=== PATIENT | female | born 1940 | race Caucasian/White ===

== ENCOUNTER 2018-11-08 11:45 | Observation (INO) | payer OTHER ==
--- OUTSIDE RECORDS SUMMARY | 2018-11-08 12:30 | XMS REPORT ---
:1940 [facility] Address [address] [place] [address] Dr. Lopez. [address] [place] [id number] Care Team Providers Name Role Phone Unavailable Unavailable Unavailable Problems This patient has no known problems. Allergies, Adverse Reactions, Alerts This patient has no known allergies or adverse reactions. Medications This patient has no known medications.
[2018-11-08] MEDS ORDERED: ACETAMINOPHEN 325 MG TABLET PO PRN (12:42)
[2018-11-08] MEDS ORDERED: DIPHENHYDRAMINE 25 MG TAB/CAP PO PRN (12:43)
[2018-11-08] MEDS ORDERED: LOPERAMIDE HCL 2 MG CAPSULE PO PRN (12:43)
[2018-11-08] MEDS ORDERED: ONDANSETRON 4 MG (ODT) TAB PO PRN (12:43)
[2018-11-08] MEDS ORDERED: POLYETHYL GLY 3350 17 GM/DOSE PO PRN (12:44)
[2018-11-08] MEDS ORDERED: NACHLORIDE 0.45% 1,000 ML IV SCH (13:00)
--- NOTE | 2018-11-08 14:21 | RAD REPORT ---
EXAM DESCRIPTION: Jimmie Espana And John Paul (2 Views)11/08/2018 2:13 pm CLINICAL HISTORY: Abdominal pain COMPARISON: 2017 FINDINGS: Mild chronic appearing lung opacities The lungs appear clear of acute infiltrate. The heart is normal size IMPRESSION: No acute abnormalities displayed
--- NOTE | 2018-11-08 14:57 | RAD REPORT ---
EXAM DESCRIPTION: US - Abdomen Exam Complete - 11/08/2018 2:36 pm CLINICAL HISTORY: Abdominal pain COMPARISON: February 2018 cat scan FINDINGS: The liver has a normal echotexture. Cholecystectomy. The biliary tree is normal caliber. The pancreas is atrophic The right kidney measures 9 centimeters with a normal echotexture. The left kidney measures 8 centimeters with a normal echotexture. 1.7 centimeters cyst The spleen measures 8 centimeters. The abdominal aorta has a maximum AP diameter of 2.2 centimeters. Inferior vena cava appear unremarka ble IMPRESSION: No acute abnormality displayed
--- NOTE | 2018-11-08 15:03 | RAD REPORT ---
EXAM DESCRIPTION: US - Pelvis Complete - 11/08/2018 2:47 pm CLINICAL HISTORY: Pelvic pain COMPARISON: February 2018 cat scan FINDINGS: A pessary is present within the pelvis. A hysterectomy has been performed. Small diverticulum stems from the bladder. Right and left adnexa unremarkable. No ascites IMPRESSION: No acute abnormality displayed
[2018-11-08] MEDS: CEFOXITIN/SWI 1gm 1 GM/10 ML SYR IV SCH (15:38)
[2018-11-08 15:39] LABS: Absolute Lymphocytes (CBC) 2.6 K/uL (0.7-4.9); Absolute Monocytes 0.6 K/uL (0.1-1.3); Absolute Neutrophil 5.8 K/uL (1.8-8.0); Basophils % 1.2 % (0-1.3); Eosinophils % 2.2 % (0-4.4); Hematocrit 39.1 % (36.0-45.0); Lymphocytes % 27.5 % (15.3-44.8); MPV 10.6 fL (7.6-11.3); Monocytes % 6.7 % (3.3-12.3); RBC Red Blood Cell Count 4.08 M/uL (3.86-4.86)
[2018-11-08] MEDS: HYDROMORPHONE HCL 1 MG/ML INJ IV PRN ×2 (15:46→22:33)
[2018-11-08 16:13] LABS: Urine Appearance CLEAR; Urine Bilirubin NEGATIVE (NEG); Urine Blood NEGATIVE (NEG); Urine Color YELLOW; Urine Glucose NEGATIVE (NEG); Urine Protein NEGATIVE (NEG); Urine Urobilinogen 0.2 mg/dL (0.2-1.0); Urine pH 7.5 (5.0-7.0)
[2018-11-08 16:20] LABS: Urine Microscopic Reflex ORDER UMIC
[2018-11-08 16:25] LABS: Protime INR 0.94
[2018-11-08] MEDS: ONDANSETRON 4 MG/2 ML VIAL IV PRN ×2 (16:51→22:33)
[2018-11-08 16:58] LABS: ALT/SGPT 43 U/L (12-78); AST/SGOT 77 U/L (15-37); Albumin 3.4 g/dL (3.4-5.0); Alkaline Phosphatase 46 U/L (45-117); BUN Blood Urea Nitrogen 22 mg/dL (7-18); Bicarbonate 25 mmol/L (21-32); Bilirubin Direct < 0.1 mg/dL (0-0.2); Bilirubin Total 0.3 mg/dL (0.2-1.0); Glucose Level 92 mg/dL (74-106); Magnesium 2.1 mg/dL (1.8-2.4); Phosphorus 2.5 mg/dL (2.5-4.9); Potassium 3.7 mmol/L (3.5-5.1); Protein, Total 6.5 g/dL (6.4-8.2); Sodium Level 142 mmol/L (136-145)
[2018-11-08 17:29] LABS: Urine Bacteria <20 /HPF (<20); Urine Culture Reflex Order NOT NEEDED; Urine RBC <5 /HPF (NONE SEEN)
--- NOTE | 2018-11-08 19:40 | CON ---
History Of Present Illness: This is a pleasant 78-year-old lady, who has been having left lower quadrant pain for about 3-4 weeks now. She has seen her primary doctor, Dr. Corbett. She says Cipro was began about 4 days ago. She had a stone protocol CT scan done recently due to fact that she has some radiation in the left flank. Scan shows 2 mm stone in right mid kidney, 4 mm left lower kidney, and 4 mm left upper kidney, shows mild fullness of both collecting systems, but no urolithiasis seen and the kidney was mentioned in regular shape 17 x 10 mm lesion, in the lateral cortex midportion of the left kidney uncertain etiology could be a cyst versus something else. She will need a contrast CT, but she has history of renal insufficiency, so we may have to wait off the contrast and try an ultrasound. She has had normal BMs. She says nothing makes the pain worse or better. She has had no fever, no chills. She does have increased peristalsis she said. Past Medical History: Significant for diverticulitis, perforated colon, shingles, hypertension, hypothyroid.____ hyperkalemia, headache, chronic kidney disease stage 2, benign hypertension, DJD, chronic pain, compression fracture L2 , pessary maintenance. Past Surgical History: Emergency colon resection for perforated colon by Dr. Chelo Heredia 5 years ago approx. She has had a cholecystectomy 2 years ago. Lung cancer resection at the age of 74, appendectomy at age of 1. Allergies: CODEINE AND BISPHOSPHONATE. Medications: Gabapentin, Levoxyl, losartan, metoprolol, omeprazole, ___, tramadol, trazodone. Objective: General: No fever. No chills. Mainly the left lower quadrant pain and decreased peristalsis. Vital Signs: She is afebrile, stable. 98.5, 78, 20, 156/67, 94% sats on room air. HEENT: Atraumatic and normocephalic. Neck: Clear. Abdomen: Soft and nontender. Slight tenderness in the left lower quadrant. Musculoskeletal: Normal. Well-perfused or edema. No deformities. Good movement. Skin: No rashes. Psych: Appropriate. Speech normal. Laboratory Data: Her labs are still pending at this time with a chem 7 pending. Hematology shows white count 9.3, H and H 12.9 and 39.1, platelet 228. Coagulation studies pending. Urine pending. Assessment: Rule out diverticulitis. She has kidney stones, but no obstruction. I believe questionable lesion in the left kidney. I would need to do a CT with contrast or because of her renal insufficiency we may want to delay use of contrast. Although, it is controversial these days. We could do a renal ultrasound and a renal scan to evaluate renal cyst versus any obstruction she may have, respectively. I recommend General Surgery on the case. We may need to get some type of scan with at least some oral contrast to evaluate possible diverticulitis for this lady. Thank you very much. GERA/KATHI Voice ID: [id number] Report ID: [id number] MTDD
[2018-11-08] MEDS ORDERED: TRAZODONE 50 MG TABLET PO PRN (20:58)
[2018-11-08] MEDS: TRAMADOL HCL 50 MG TAB PO SCH (21:00)
[2018-11-08] MEDS: GABAPENTIN 100 MG CAP PO SCH (21:00)
[2018-11-08] MEDS ORDERED: ENOXAPARIN 40 MG/0.4 ML SQ SCH ×2 (21:00)
[2018-11-08] MEDS: METOPROLOL TAR 50 MG TAB PO SCH (21:00)
[2018-11-08] MEDS: TOPIRAMATE 25 MG TAB PO SCH (21:00)
[2018-11-09] MEDS: CEFOXITIN/SWI 1gm 1 GM/10 ML SYR IV SCH ×2 (00:12→08:27)
[2018-11-09] MEDS: NACHLORIDE 0.45% 1,000 ML IV SCH ×2 (00:12→10:20)
--- NOTE | 2018-11-09 01:16 | CON ---
Date of Consultation: 11/08/2018 Reason For Service: Intractable left lower quadrant pain since 2 weeks ago. History Of Present Illness: This is the case of a 78-year-old patient with history of bowel resectio n for perforation several years ago, done by Dr. Heredia, the colorectal at [facility]. She s ays she has been doing well. She follow with him closely every 6 month visit once again. She does n ot know when was her last colonoscopy, although she thought she had it done and as per Dr. Heredia imani chen was okay. She is due for another followup in the next few weeks. For the last 2 weeks, she has this left lower quadrant pain, feels like a needle in that area and is keeping her awake. She de nies any dysuria, hematuria, hematochezia, or melena. Denies any recent traveling out of the country . Denies any family member sick at home. Past Medical History: Include hypertension, a history of colon perforation and colitis, kidney stone s. Medications: Reviewed including Tramadol. Allergies: CODEINE, BISPHOSPHONATE. Family History: Noncontributory. She does not smoke, she does not drink alcohol. Review of Systems: Ten points otherwise unremarkable. Physical Examination: General: The patient is awake and alert. No distress. HEENT: Pupils are equal and reactive, anicteric. Neck: Supple. Abdomen: Soft and depressible. Left lower quadrant and left mid abdomen tenderness, etiology of violeta t is unknown. No guarding or rebound. No masses palpated. Rectal: Deferred. Extremities: Good capillary refill. Laboratory Data: Blood work shows a WBC count of 9.3, hemoglobin of 12.9, INR is 0.94, chloride is 1 08, creatinine is 2.40. The patient had an ultrasound done today, pelvic ultrasound and abdominal ul trasound. Pelvic ultrasound read as negative. Patient has previous hysterectomy. Small diverticulu m from the bladder. The patient also had an abdominal ultrasound done today showing a previous alea cystectomy, normal caliber in the biliary system, and left kidney with a cyst. Assessment And Plan: This is a 78-year-old patient with 2 weeks' history of abdominal pain; etiology of that is unknown. I am trying to get a CT scan, that is mentioned in this visit. She told me she had the CT scan done somewhere else. It is not available to me at this moment, at least this time o f the day. I am trying to get the CT scan. Once I get a CT scan, I want to review the CAT scan myse lf, probably bring it to the radiologist in this institution to see they can, now with the clinical f indings, try to see if they can take a look at the CT scan with us. We also encouraged the patient t o make sure that she has a previous colonoscopy up to date. I will follow the patient and give more recommendations as the case develops. No diarrhea at this moment. If she develops any diarrhea, the n stool cultures obviously should be done. DANIEL Voice ID: [id number] Report ID: [id number]
[2018-11-09] MEDS ORDERED: FUROSEMIDE 40 MG/4 ML VIAL ONE (05:43)
[2018-11-09] MEDS ORDERED: LEVOTHYROXINE SOD 0.05 MG TABLET PO SCH (06:00)
[2018-11-09 06:25] LABS: Absolute Lymphocytes (CBC) 1.6 K/uL (0.7-4.9); Absolute Monocytes 0.5 K/uL (0.1-1.3); Basophils % 1.5 % (0-1.3); Eosinophils % 2.5 % (0-4.4); Hematocrit 32.7 % (36.0-45.0); Lymphocytes % 21.8 % (15.3-44.8); MPV 10.2 fL (7.6-11.3); Monocytes % 6.8 % (3.3-12.3); RBC Red Blood Cell Count 3.48 M/uL (3.86-4.86)
[2018-11-09 06:47] LABS: Magnesium 1.8 mg/dL (1.8-2.4); Potassium 4.4 mmol/L (3.5-5.1)
--- NOTE | 2018-11-09 07:17 | EKG ---
Test Date: 2018-11-08 Test Time: 16:09:10 Revenue Liaison: SHAKIR MEASUREMENT RESULTS: Intervals: Rate: 61 VT: 136 QRSD: 76 QT: 458 QTc: 461 [place]: P: 63 VT: 136 QRS: 1 T: 38 INTERPRETIVE STATEMENTS: Normal sinus rhythm Normal ECG Compared to ECG 07/21/2016 18:31:50 Ventricular premature complex(es) no longer present Short VT interval no longer present Left ventricular hypertrophy no longer present ST (T wave) deviation no longer present Electronically Signed On 11-09-18 07:15:44 CDT by Km Mac
[2018-11-09] MEDS: METOPROLOL TAR 50 MG TAB PO SCH (08:32)
[2018-11-09] MEDS: GABAPENTIN 100 MG CAP PO SCH ×2 (08:32→14:00)
[2018-11-09] MEDS: TOPIRAMATE 25 MG TAB PO SCH (08:33)
[2018-11-09] MEDS: TRAMADOL HCL 50 MG TAB PO SCH (08:33)
[2018-11-09 08:46] VITALS: BMI 21.6
[2018-11-09] MEDS ORDERED: RALOXIFENE HCL 60 MG TAB PO SCH (09:00)
--- NOTE | 2018-11-09 09:03 | RAD REPORT ---
EXAM DESCRIPTION: NM - Kidney Imag W/Flow Func Wop - 11/09/2018 8:00 am CLINICAL HISTORY: r/o obstruction COMPARISON: Abdomen Exam Complete dated 11/08/2018; Abdomen Pelvis Wo Contrast dated 02/13/2018 TECHNIQUE: Following intravenous administration of 10.3 mCi Tc99m MAG-3, posterior dynamic angiogra m and sequential static images of the kidneys were obtained. 24 mg Lasix was administered intravenous ly 10 minutes into the study. Static post-void imaging was also performed. FINDINGS: FLOW: There is symmetric flow to bilateral kidneys. SPLIT FUNCTION: Differential function is 40% on the left and 60% on the right. RENOGRAM AND COLLECTING SYSTEM CLEARANCE: Symmetric renal size and normal orientation. There is no h ydronephrosis or hydroureter. There is prompt rise to peak and washout of bilateral renal activity.T olga to peak activity is approximately 2.9min on the left and 4.0min on the right (normal 3-5min). Pos t-Lasix time to half (T1/2) is 13.5min on the left and 10.7min on the right (normal less than 10 gilberto lisa). POST VOID: No significant persistent collecting system activity is noted on post void imaging. Progr essive clearance of collecting system activity within upright posture and voiding. No significant pos t-void residual bladder volume. IMPRESSION: Mild reduced function is seen involving the left kidney with mild delay in excretory act ivity. No anatomic or functional obstruction suspected.
--- NOTE | 2018-11-09 10:35 | P.CNS ---
Date of Consult: 11/09/18 Reason for Consult: MERON Chief Complaint: Abd pain History of Present Illness: an 78 Y/o woman with PMHx of CKD III, [place] Cr ~1.5 , HTN , hypothyrodism , hx of Diverticulitis with perforated colon S/P partial colectomy pt presented for abd pain of 2 wks duration Pt lt lower quardant , sharp , non radiating , associated with nausea , no diarrhea or vomiting deneid NSAID intake pt was treated with Cipro recently for UTI as per urology note CT abd as an OP showed 2-3mm renal stones with fullness Abd Ct done in the hosital , no hydro or nephrolithiasis Cr 2.4 in ER and improved to 1.5 on IVF Allergies codeine Allergy (Mild, Verified 08/06/13 16:03) hyperactivity morphine Allergy (Verified 08/06/13 16:03) swelling to extremities Home Medications: Gabapentin [Neurontin] 100 mg PO TID 11/08/18 Levothyroxine Sodium [Levoxyl] 50 mcg PO [id number] 11/08/18 Losartan Potassium 25 mg PO DAILY 11/08/18 Metoprolol Tartrate [Lopressor*] 50 mg PO BID 11/08/18 Omeprazole 20 mg PO DAILY 11/08/18 Raloxifene HCl [Evista] 60 mg PO DAILY 11/08/18 Topiramate [Topamax*] 25 mg PO BID 11/08/18 Tramadol HCl [Ultram] 50 mg PO BID 11/08/18 Trazodone [Desyrel*] 50 mg PO BEDTIME PRN 11/08/18 - Past Medical/Surgical History Diabetic: No -: HTN -: Hypothyroidism -: Osteoporosis -: Lung Cancer -: Diverticulitis -: Appendectomy -: Left Lower Lobectomy -: Hysterectomy -: pessary insertion -: cholecystectomy -: perforated colon sx - Family History Father Medical History: Cancer Notes: lung cancer Mother Medical History: Lung disease, Diabetes Notes: asthma Sister Medical History: Cancer - Social History Smoking Status: Never smoker Alcohol use: No CD- Drugs: No Caffeine use: Yes Place of Residence: Home Physical Examination Temp Pulse Resp BP Pulse Ox 97.6 F 63 14 155/73 H 99 11/09/18 08:00 11/09/18 08:00 11/09/18 08:00 11/09/18 08:00 11/09/18 08:00 General: In no apparent distress, Oriented x3 HEENT: Atraumatic Neck: Supple, Without JVD or thyroid abnormality Respiratory: Clear to auscultation bilaterally, Normal air movement Cardiovascular: No edema, Normal pulses, Regular rate/rhythm, Normal S1 S2, No gallops, No rubs, No murmurs Gastrointestinal: Normal bowel sounds, Soft and benign Laboratory Data (last 24 hrs) 11/09/18 06:09: Sodium 139, Potassium 4.4, BUN 20 H, Creatinine 1.50 H, Glucose 122 H, Magnesium 1.8 11/09/18 06:09: WBC 7.4 D, Hgb 11.1 L, Hct 32.7 L D, Plt Count 225 11/08/18 16:03: Sodium 142, Potassium 3.7, BUN 22 H, Creatinine 2.40 H, Glucose 92, Phosphorus 2.5, Magnesium 2.1, Total Bilirubin 0.3, AST 77 H, ALT 43, Alkaline Phosphatase 46 11/08/18 16:03: PT 11.1, INR 0.94, APTT 29.2 11/08/18 15:19: Sodium Cancelled, Potassium Cancelled, BUN Cancelled, Creatinine Cancelled, Glucose Cancelled, Phosphorus Cancelled, Magnesium Cancelled, Total Bilirubin Cancelled, AST Cancelled, ALT Cancelled, Alkaline Phosphatase Cancelled 11/08/18 15:19: WBC 9.3, Hgb 12.9, Hct 39.1, Plt Count 228 - Problems (1) MERON (acute kidney injury) Current Visit: Yes Status: Acute (2) Dehydration Current Visit: No Status: Acute Conclusions/Impression: MERON on CKD III baseline Cr ~1.5 due to prerenal azotemia and ARB US: no hydro off ARB cont IVF renal dose meds HTN mildly elevated will cont to monitor and adujst meds pen Abd pain Hx of Diverticulosis Surgery and urology on board F/U lasix scan results Agree with Abd CT with Po contrast if pain continues
[2018-11-09] MEDS ORDERED: NACHLORIDE 0.45% 1,000 ML IV SCH (11:00)
--- NOTE | 2018-11-09 15:01 | P.DS ---
Admission Date: 11/08/18 Discharge Date: 11/09/18 Disposition: ROUTINE DISCHARGE Discharge Condition: FAIR Reason for Admission: Abd pain Hospital Course: MR. AGARWAL IS PAINFREE NOW. HER PAIN WAS LLQ IN THE INGUINAL REGION. SHE HAS CT SCAN DONE WITHOUT CONTRAST AND SHOWED SOME RENAL STONES BUT NONE OBSTRUCTIVE. THERE WAS SOME ENLARGEMENT OF RENAL SYSTEM ON L SIDE BUT DID NOT SEE ANY BLOCKAGES OR STONES. DR. TATE DID NOT SEE ANY ACUTE LLQ FINDING. LIKE I SUSPECTED NOTHING SURGICAL WAS FOUND. IT IS NOT CLEAR WHY SHE HAS PAIN. SHE MAY HAVE PAIN FROM L SPINE RELATED TO POSTURE SHE HAS SOME SCOLIOSIS. SHE WAS GIVEN ORAL ABX WITHOUT ANY HELP. SHE IS STABLE TO GO HOME WITH FU IN OFFICE. Vital Signs/Physical Exam: Temp Pulse Resp BP Pulse Ox 96.9 F 67 18 151/69 H 98 11/09/18 12:00 11/09/18 12:00 11/09/18 12:00 11/09/18 12:00 11/09/18 12:00 Laboratory Data at Discharge: WBC 7.4 K/uL (4.3-10.9) D 11/09/18 06:09 Hgb 11.1 g/dL (12.0-15.0) L 11/09/18 06:09 Hct 32.7 % (36.0-45.0) L D 11/09/18 06:09 Plt Count 225 K/uL (152-406) 11/09/18 06:09 PT 11.1 SECONDS (9.5-12.5) 11/08/18 16:03 INR 0.94 11/08/18 16:03 APTT 29.2 SECONDS (24.3-36.9) 11/08/18 16:03 Sodium 139 mmol/L (136-145) 11/09/18 06:09 Potassium 4.4 mmol/L (3.5-5.1) 11/09/18 06:09 BUN 20 mg/dL (7-18) H 11/09/18 06:09 Creatinine 1.50 mg/dL (0.55-1.3) H 11/09/18 06:09 Glucose 122 mg/dL (74-106) H 11/09/18 06:09 Phosphorus 2.5 mg/dL (2.5-4.9) 11/08/18 16:03 Magnesium 1.8 mg/dL (1.8-2.4) 11/09/18 06:09 Total Bilirubin 0.3 mg/dL (0.2-1.0) 11/08/18 16:03 AST 77 U/L (15-37) H 11/08/18 16:03 ALT 43 U/L (12-78) 11/08/18 16:03 Alkaline Phosphatase 46 U/L (45-117) 11/08/18 16:03 Home Medications: Gabapentin [Neurontin*] 100 mg PO TID 11/08/18 Levothyroxine Sodium [Levoxyl] 50 mcg PO [id number] 11/08/18 Losartan Potassium 25 mg PO DAILY 11/08/18 Metoprolol Tartrate [Lopressor*] 50 mg PO BID 11/08/18 Omeprazole 20 mg PO DAILY 11/08/18 Raloxifene HCl [Evista*] 60 mg PO DAILY 11/08/18 Topiramate [Topamax*] 25 mg PO BID 11/08/18 Tramadol HCl [Ultram] 50 mg PO BID 11/08/18 Trazodone [Desyrel*] 50 mg PO BEDTIME PRN 11/08/18 Followup: Marie Pérez MD [ACTIVE - CAN ADMIT] - Mike Nash MD [ACTIVE - CAN ADMIT] - Irwin Corbett MD [Primary Care Provider] -
--- NOTE | 2018-11-09 15:30 | PN ---
Subjective: The patient still has left lower quadrant pain. Ultrasound confirms she has a 17 mm cys t in the left kidney not of significance. Nuclear renal scan shows function 40% on the left, 60% on the right. No obstruction. Therefore no urological intervention is necessary for her. Assessment: Left lower quadrant pain. Etiology unknown. Plan: Consider follow general surgery suggestion. Rule out diverticulitis. GERA/KATHI Voice ID: [id number] Report ID: [id number]
[2018-11-09 16:16] VITALS: O2SAT 98
[2018-11-09 16:40] VITALS: BP 162/75; TEMP 97.2
[2018-11-09] MEDS ORDERED: ENOXAPARIN 30 MG/0.3 ML SQ SCH (21:00)
--- NOTE | 2018-11-09 22:31 | PN ---
Date of Progress Note: 11/09/2018 Diagnosis: Abdominal pain. Subjective: The patient is awake and alert. The patient feels better. Still has some left lower qu adrant tenderness. No guarding or rebound. The patient is passing gas. Review of Systems: Respiratory: Denies any short of breath. Abdomen: Denies any melena and hematochezia, any nausea, vomiting today. Physical Examination: General: The patient is awake and alert. Abdomen: Left lower quadrant mild tenderness. No guarding, rebound, or peritoneal signs. Extremities: Good capillary refill. Laboratory Data: Blood Work shows WBC count 7.4, hemoglobin 11.1. INR is 0.94. Creatinine is 1.5. Assessment: A 78-year-old patient with abdominal pain. Etiology of that is unknown. We saw the CAT scan result. It was done in another institution. No p.o. contrast, although they do not see any pe rforation at this moment. The patient had an extensive surgery in the low lower abdomen with bowel r esection before, although we do not see any pneumoperitoneum. We can treat the person as the person has mild diverticulitis. In the meantime since we cannot rule that out, we do not have a colonoscopy results with us or any followup. She normally follows with Dr. Heredia, which is a colorectal surgeo n in [place] and she has an open with him in the next few days. I asked her to bring this the films and discuss with him the new findings. From the urological standpoint, Dr. Bradford will follow her. Fo r the flank pain, I do not see any pinpoint tenderness over the area of spine to see any acute injury, although she will need a neurologist to help her with that problem. RADHA/KATHI Voice ID: [id number] Report ID: [id number]
== END 2018-11-09 16:38 | disposition home or self-care (01) ==
LOC: 2ND 11:59
PROVIDERS: ADMIT Internal Medicine; ATTEND Internal Medicine
DX: R10.32 Left lower quadrant pain (principal); N20.0 Calculus of kidney; I12.9 Hypertensive chronic kidney disease with stage 1 through stage 4 chronic kidney disease, or unspecified chronic kidney disease; N18.3 Chronic kidney disease, stage 3 (moderate); E03.9 Hypothyroidism, unspecified; E87.5 Hyperkalemia; N28.1 Cyst of kidney, acquired; M41.86 Other forms of scoliosis, lumbar region; Z79.899 Other long term (current) drug therapy
CPT/HCPCS: 93005; 87088; 85025 ×2; 80048 ×2; 36415; 83735 ×2; 84100; 85610; 82962 ×3; 80076; 85730; 84443; 82607; 82306; 71046; 76700; 76856; 78707; J1940; J1650; J1170 ×2; J2405 ×2; A9562; G0379; G0378; 81003; 81015; 87086

== ENCOUNTER 2021-04-24 18:11 | Inpatient (IN) | payer OTHER ==
--- OUTSIDE RECORDS SUMMARY | 2021-04-24 18:26 | XMS REPORT | Continuity of Care Document ---
:1940 Author Organization [facility] t Address [address] [place] [address] Care Team Providers Name Role Phone Radiology Attending Clinician Unavailable RADIOLOGY Attending Clinician Unavailable Doctor Unassigned, Name Attending Clinician Unavailable Polo GEE, T Attending Clinician Unavailable Lab, Fam Pob I Attending Clinician Unavailable ANENE Attending Clinician Unavailable Provider, Urgent Care Attending Clinician Unavailable EBRAHIM Attending Clinician Unavailable Payers Payer Name Policy Type Policy Number Effective Date Expiration Date S wenceslao MEDICARE PART A [id number] 2004 \T\ B 00:00:00 Problems This patient has no known problems. Allergies, Adverse Reactions, Alerts Allergy Allergy Status Severity Reaction(s) Onset Inactive Treating Comm ents Source Name Type Date Date Clinician MORPHINE DRUG Active Unknown-Cmnt Un aurora INGREDI 607 ity of 00:00: [address] Medications This patient has no known medications. Procedures This patient has no known procedures. Encounters Start End Encounter Admission Attending Care Care Encounter Source Date/Time Date/Time Type Type Clinicians Facility Department ID 2021-04-05 Emergency [facility] [id number] Univers 06:18:13 ity of [facility] 2021-04-04 Emergency [facility] [id number] Univers 11:05:45 ity [facility] 2020-06-04 2020-06-04 Hospital Radiology [facility] [id number] 13:21:40 23:59:00 Encounter [place] [id number] [place] [id number] [place] [id number] 2020-06-04 2020-06-04 Outpatient R RADIOLOGY [facility] [id number] Univers 13:40:00 13:40:00 [id number] ity [facility] 2020-06-04 2020-06-04 Outpatient R RADIOLOGY [facility] [id number] Univers 00:00:00 00:00:00 ity [facility] 2020-06-04 2020-06-04 Orders Doctor SHARLA [id number] 00:00:00 00:00:00 Only Unassigned, [place] [id number] [facility] [id number] 2020-02-06 2020-02-06 Letter SHARLA Cuellar [id number] 00:00:00 00:00:00 (Out) Jenni ARNOLD [id number] [facility] [id number] 2020-02-04 2020-02-04 Laboratory Lab, [facility] [id number] 14:50:37 15:10:37 Only Fam Pob I [facility] [id number] [place] [id number] [facility] [id number] nal [id number] 2020-02-04 2020-02-04 Outpatient R [facility] [id number] Univers 15:00:00 15:00:00 [facility] 2020-02-04 2020-02-04 Outpatient R SARAI, [facility] [id number] Univers 15:00:00 15:00:[address] [facility] 2020-01-04 2020-01-04 Urgent Provider, [facility] [id number] 14:17:46 15:24:42 Care [facility] [id number] Care [place] [id number] Professio [id number] nal [id number] 2020-01-04 2020-01-04 Outpatient R [facility] [id number] Univers 14:20:00 14:20:[facility] 2020-01-04 Outpatient R EBRAHIM, [facility] [id number] Univers 14:20:00 14:20:00 DEMOND mendiola [facility] Results This patient has no known results.
--- NOTE | 2021-04-24 20:06 | RAD REPORT ---
EXAM DESCRIPTION: CT - Head Brain Wo Cont - 04/24/2021 7:45 pm CLINICAL HISTORY: CONFUSED Headache, drowsiness COMPARISON: <Comparisons> TECHNIQUE: All CT scans are performed using dose optimization technique as appropriate and may inclu de automated exposure control or mA/KV adjustment according to patient size. FINDINGS: No intracranial hemorrhage, hydrocephalus or extra-axial fluid collection.Moderate general ized brain atrophy is seen.No areas of brain edema or evidence of midline shift. Bilateral vertebral atherosclerosis. The paranasal sinuses and mastoids are clear. The calvarium is intact. IMPRESSION: No acute intracranial abnormality.
[2021-04-24 20:12] LABS: Urine Blood Negative (Negative); Urine Glucose Negative (Negative); Urine Protein Negative (Negative); Urine Specific Gravity 1.025 (1.005-1.030); Urine pH 7.5 (5.0-7.0)
[2021-04-24 20:20] LABS: Absolute Lymphocytes (CBC) 1.7 K/uL (0.7-4.9); Basophils % 1.3 % (0-1.3); Hematocrit 34.1 % (36.0-45.0); Lymphocytes % 17.2 % (15.3-44.8); MPV 10.5 fL (7.6-11.3); RBC Red Blood Cell Count 3.66 M/uL (3.86-4.86)
[2021-04-24 20:22] LABS: Protime INR 0.91
[2021-04-24 20:29] LABS: Barbiturates NEGATIVE (NEGATIVE); Benzodiazepines NEGATIVE (NEGATIVE); Cocaine NEGATIVE (NEGATIVE); METHAMPHETAM NEGATIVE (NEGATIVE); Methadone NEGATIVE (NEGATIVE); Opiates NEGATIVE (NEGATIVE); Phencyclidine NEGATIVE (NEGATIVE); THC Cannibis NEGATIVE (NEGATIVE)
[2021-04-24 20:39] LABS: ALT/SGPT 24 U/L (12-78); AST/SGOT 32 U/L (15-37); Albumin 3.1 g/dL (3.4-5.0); Alkaline Phosphatase 50 U/L (45-117); BUN Blood Urea Nitrogen 25 mg/dL (7-18); Bicarbonate 26 mmol/L (21-32); Bilirubin Direct < 0.1 mg/dL (0-0.2); Bilirubin Total 0.3 mg/dL (0.2-1.0); Glucose Level 108 mg/dL (74-106); Magnesium 2.2 mg/dL (1.8-2.4); NT PRO-BNP 2782 pg/mL (<450); Potassium 4.5 mmol/L (3.5-5.1); Protein, Total 6.8 g/dL (6.4-8.2); Sodium Level 144 mmol/L (136-145)
--- NOTE | 2021-04-24 20:41 | RAD REPORT ---
EXAM DESCRIPTION: RAD - Chest Single View - 04/24/2021 8:27 pm CLINICAL HISTORY: AMS Chest pain. COMPARISON: Chest Pa And Lat (2 Views) dated 12/26/2019; Chest Pa And Lat (2 Views) dated 11/08/2018; C hest Pa And Lat (2 Views) dated 07/21/2016; CHEST PA AND LAT 2 VIEW dated 10/30/2014 FINDINGS: Portable technique limits examination quality. Prominent COPD pattern is seen. Irregular scarring is noted in the left mid lung laterally with a chr onic left pleural thickening, unchanged. Heart is mildly enlarged. No displaced fractures. IMPRESSION: Prominent COPD.
[2021-04-24] MEDS ORDERED: METOPROLOL TAR 25 MG TAB ONE (21:11)
[2021-04-24] MEDS ORDERED: ASPIRIN EC 325 MG TABLET PO ONE (21:12)
[2021-04-24] MEDS ORDERED: ENOXAPARIN 60 MG/0.6 ML SQ ONE (21:12)
--- NOTE | 2021-04-24 21:40 | ER ---
Nurse's Notes [facility] Name: Falguni Marcelino Age: 81 yrs Sex: Female : 1940 Arrival Date: 04/24/2021 Time: 18:14 Bed 24 Private MD: Diagnosis: Subsequent non-ST elevation (NSTEMI) myocardial infarction;Confusion Presentation: 04/24 18:25 Chief complaint: Patient states: Pt states headache, denies NV. Patient's son or vg1 daughter states: "She went to denominational yesterday but didn't even go into denominational and came right back home but couldn't remember leaving the house to go to denominational. She did complain of one her arms tingling but she cant remember which one.". Coronavirus screen: Vaccine status: Patient reports receiving the 2nd dose of the covid vaccine. Client denies travel out of the [place] in the last 14 days. Ebola Screen: Patient negative for fever greater than or equal to 101.5 degrees Fahrenheit, and additional compatible Ebola Virus Disease symptoms. Initial Sepsis Screen: Does the patient meet any 2 criteria? No. Patient's initial sepsis screen is negative. Does the patient have a suspected source of infection? No. Patient's initial sepsis screen is negative. Risk Assessment: Do you want to hurt yourself or someone else? Patient reports no desire to harm self or others. Onset of symptoms was April 23, 2021. 18:25 Method Of Arrival: Ambulatory vg1 18:25 Acuity: BRYANT 3 vg1 Triage Assessment: 18:31 General: Appears in no apparent distress. comfortable, Behavior is calm, cooperative. vg1 Pain: Complains of pain in head Pain currently is 8 out of 10 on a pain scale. Neuro: Level of Consciousness is awake, alert, obeys commands, Oriented to person, place, time, situation, Bellows Assembler are weak on left Moves all extremities. Gait is steady, Speech is normal, Facial symmetry appears normal. Historical: - Allergies: 18:31 Codeine; vg1 18:31 Morphine; vg1 - Home Meds: 18:31 levothyroxine oral [Active]; losartan Oral [Active]; Metoprolol Tartrate Oral [Active]; vg1 - PMHx: 18:31 Hypertension; Hypothyroidism; vg1 - PSHx: 18:31 Hysterectomy; Appendectomy; vg1 - Immunization history:: Client reports receiving the 2nd dose of the Covid vaccine. - Social history:: Smoking status: Patient denies any tobacco usage or history of. Screenin:24 Abuse screen: Denies threats or abuse. Denies injuries from another. Nutritional mr2 screening: No deficits noted. Tuberculosis screening: No symptoms or risk factors identified. Fall Risk IV access (20 points). Gait- Weak (10 pts.). Mental Status- Overestimates/Forgets Limitations (15 pts.). Vital Signs: 18:25 BP 156 / 95; Pulse 85; Resp 16; Temp 97.4; Pulse Ox 98% ; Weight 47.63 kg; Height 4 ft. vg1 11 in. (149.86 cm); Pain 8/10; 22:23 BP 160 / 84; Pulse 69; Resp 18; Temp 98.4; Pulse Ox 99% on R/A; mr2 18:25 Body Mass Index 21.21 (47.63 kg, 149.86 cm) vg1 NIH Stroke Scale Scores: 19:05 NIHSS Score: 0 [facility] ED Course: 18:14 Patient arrived in ED. 18:31 Triage completed. vg1 18:31 Arm band placed on. vg1 19:01 Indra Meyers MD is Attending Physician. 7 19:10 Lee Daley, RN is Primary Nurse. mr2 19:40 LFT's Sent. mr2 19:40 Magnesium Sent. mr2 19:40 NT PRO-BNP Sent. mr2 19:40 PT-INR Sent. mr2 19:41 Troponin (emerg Dept Use Only) Sent. mr2 19:41 CBC with Diff Sent. mr2 19:41 Basic Metabolic Panel Sent. mr2 19:41 ETOH Level Sent. mr2 19:41 Salicylate Sent. mr2 19:41 UDS Sent. mr2 19:41 Acetaminophen Sent. mr2 19:45 CT Head Brain wo Cont In Process Unspecified. EDMS 20:00 Inserted saline lock: 20 gauge in left antecubital area, using aseptic technique. mr2 20:27 XRAY Chest (1 view) In Process Unspecified. EDMS 21:38 Tobias Oliveira MD is Hospitalizing Provider. [facility] 22:18 COVID-19 (Coronavirus) Document "Date of Onset" if Symptomatic Sent. mr2 22:24 Placed in gown. Bed in low position. Side rails up X2. mr2 22:24 No provider procedures requiring assistance completed. mr2 Administered Medications: 21:26 Drug: Lovenox (enoxaparin) 1 mg/kg Route: Sub-Q; Site: abdomen; mr2 21:26 Drug: Aspirin Chewable Tablet 324 mg Route: PO; mr2 21:26 Drug: Metoprolol 25 mg Route: PO; mr2 Outcome: 20:00 Admitted to Tele mr2 21:39 Decision to Hospitalize by Provider. [facility] 04/25 14:23 Patient left the ED. aa5 NIH Stroke Scale - NIH Stroke Score Date: 04/24/2021 Time: 19:05 Total Score = 0 1a. Level of Consciousness (LOC) - 0(Alert) 1b. Level of Consciousness (LOC) (Month \\T\\ Age) - 0(Both) 1c. LOC Commands (Open \\T\\ Closes Eyes/Senior Ssis Developer) - 0(Both) 2. Best Gaze (Lateral Gaze Paresis) - 0(Normal) 3. Visual Field Loss - 0(No visual loss) 4. Facial Palsy - 0(Normal) 5a. Left Arm: Motor (10-second hold) - 0(No drift) 5b. Right Arm: Motor (10-second hold) - 0(No drift) 6a. Left Leg: Motor (5-second hold - always test supine) - 0(No drift) 6b. Right Leg: Motor (5-second hold - always test supine) - 0(No drift) 7. Limb Ataxia (finger/nose \\T\\ heel/richardson - test with eyes open) - 0(Absent) 8. Sensory Loss (pinprick arms/legs/face) - 0(Normal) 9. Best Language: Aphasia (description/naming/reading) - 0(No aphasia) 10. Dysarthria (speech clarity - read or repeat words) - 0(Normal) 11. Extinction and Inattention (visual/tactile/auditory/spatial/personal) - 0(No abnormality) Initials: 7 Signatures: Dispatcher [employer] EDMS Lucy Peterson RN RN aa5 Elsy Billy RN RN vg1 Indra Meyers MD MD 7 Castañeda, Dara wm Reynard, Lee, RN RN mr2
--- NOTE | 2021-04-24 21:40 | EDPHYS ---
Physician Documentation [facility] Name: Falguni Marcelino Age: 81 yrs Sex: Female : 1940 Arrival Date: 04/24/2021 Time: 18:14 Bed 24 Private MD: BRI Physician Indra Meyers HPI: 04/24 19:05 This 81 yrs old Female presents to ER via Ambulatory with complaints of Disoriented, mh7 doesn't remember going to jew earlier.. 19:05 The patient presents with confusion. Onset: The symptoms/episode began/occurred today, mh7 at an unknown time. Possible causes: unknown. Associated signs and symptoms: Pertinent positives: confusion, headache, numbness, Pertinent negatives: abdominal pain, agitation, ataxia, blurred vision, chest pain, combativeness, diaphoresis, diarrhea, dizziness, lightheadedness, nausea, palpitations, seizure, shortness of breath, tingling, vertigo, vomiting, weakness. Current symptoms: In the emergency department the patient's symptoms have improved, markedly, is less confused. Patient's baseline: Neuro: alert and fully oriented, Motor: no deficits, Ambulation: walks without assistance, Speech: normal. Family states that patient left home around 5 PM tonight to attend jew. He states she returned home a short time later and seemed disoriented and confused and had problems remembering events from earlier today and certain family members names. They also report that she complained of numbness to one of her arms yesterday but unable to remember which arm. She has also complained of headache to her forehead area. Denies neck pain, fever, chest pain, abdominal pain, cough, nausea, vomiting, diarrhea, shortness of breath, dizziness, weakness.. Historical: - Allergies: 18:31 Codeine; vg1 18:31 Morphine; vg1 - Home Meds: 18:31 levothyroxine oral [Active]; losartan Oral [Active]; Metoprolol Tartrate Oral [Active]; vg1 - PMHx: 18:31 Hypertension; Hypothyroidism; vg1 - PSHx: 18:31 Hysterectomy; Appendectomy; vg1 - Immunization history:: Client reports receiving the 2nd dose of the Covid vaccine. - Social history:: Smoking status: Patient denies any tobacco usage or history of. ROS: 19:05 Constitutional: Negative for fever, chills, and weight loss, Eyes: Negative for injury, mh7 pain, redness, and discharge, ENT: Negative for injury, pain, and discharge, Neck: Negative for injury, pain, and swelling, Cardiovascular: Negative for chest pain, palpitations, and edema, Respiratory: Negative for shortness of breath, cough, wheezing, and pleuritic chest pain, Abdomen/GI: Negative for abdominal pain, nausea, vomiting, diarrhea, and constipation, Back: Negative for injury and pain, : Negative for injury, bleeding, discharge, and swelling, MS/Extremity: Negative for injury and deformity, Skin: Negative for injury, rash, and discoloration, Psych: Negative for depression, anxiety, suicide ideation, homicidal ideation, and hallucinations, Allergy/Immunology: Negative for hives, rash, and allergies, Endocrine: Negative for neck swelling, polydipsia, polyuria, polyphagia, and marked weight changes, Hematologic/Lymphatic: Negative for swollen nodes, abnormal bleeding, and unusual bruising. Exam: 19:05 Constitutional: This is a well developed, well nourished patient who is awake, alert, mh7 and in no acute distress. Head/Face: Normocephalic, atraumatic. Eyes: Pupils equal round and reactive to light, extra-ocular motions intact. Lids and lashes normal. Conjunctiva and sclera are non-icteric and not injected. Cornea within normal limits. Periorbital areas with no swelling, redness, or edema. Neck: Trachea midline, no thyromegaly or masses palpated, and no cervical lymphadenopathy. Supple, full range of motion without nuchal rigidity, or vertebral point tenderness. No Meningismus. Chest/axilla: Normal chest wall appearance and motion. Nontender with no deformity. No lesions are appreciated. Cardiovascular: Regular rate and rhythm with a normal S1 and S2. No gallops, murmurs, or rubs. Normal PMI, no JVD. No pulse deficits. Respiratory: Lungs have equal breath sounds bilaterally, clear to auscultation and percussion. No rales, rhonchi or wheezes noted. No increased work of breathing, no retractions or nasal flaring. Abdomen/GI: Soft, non-tender, with normal bowel sounds. No distension or tympany. No guarding or rebound. No evidence of tenderness throughout. Back: No spinal tenderness. No costovertebral tenderness. Full range of motion. Skin: Warm, dry with normal turgor. Normal color with no rashes, no lesions, and no evidence of cellulitis. MS/ Extremity: Pulses equal, no cyanosis. Neurovascular intact. Full, normal range of motion. 19:05 Neuro: Orientation: to person, place, time \\T\\ situation. Mentation: is normal, Memory: mh7 immediate memory is intact, remote memory is intact. recent memory is impaired, Cranial nerves: grossly normal, Cerebellar function: is grossly normal, Motor: is normal, Sensation: is normal, Gait: is steady, at a normal pace, without difficulty, Deep tendon reflexes are normal, Babinski testing is normal, seizure activity, is not displayed by the patient, Abnormal movements: there are no abnormal movements. 19:05 Psych: Awake, alert, with orientation to person, place and time. Behavior, mood, and 7 affect are within normal limits. Vital Signs: 18:25 BP 156 / 95; Pulse 85; Resp 16; Temp 97.4; Pulse Ox 98% ; Weight 47.63 kg; Height 4 ft. vg1 11 in. (149.86 cm); Pain 8/10; 22:23 BP 160 / 84; Pulse 69; Resp 18; Temp 98.4; Pulse Ox 99% on R/A; mr2 18:25 Body Mass Index 21.21 (47.63 kg, 149.86 cm) vg1 NIH Stroke Scale Scores: 19:05 NIHSS Score: 0 mh7 MDM: 21:37 Differential Diagnosis: CVA, electrolyte abnormality, alcohol intoxication, 7 hypoglycemia, intracranial bleed, overdose, pneumonia, sepsis, TIA, UTI, volume depletion. Data reviewed: vital signs, nurses notes, lab test result(s), cardiac enzymes, CBC, electrolytes, EKG, radiologic studies, CT scan, plain films. Data interpreted: Pulse oximetry: on room air is 98 %. Interpretation: normal. Counseling: I had a detailed discussion with the patient and/or guardian regarding: the historical points, exam findings, and any diagnostic results supporting the discharge/admit diagnosis, the presence of at least one elevated blood pressure reading (>120/80) during this emergency department visit, lab results, radiology results, the need for further work-up and treatment in the hospital. Response to treatment: the patient's symptoms have markedly improved after treatment. 21:39 Patient medically screened. [facility] 04/24 19:23 Order name: Basic Metabolic Panel; Complete Time: 20:52 [facility] 04/24 19:23 Order name: CBC with Diff; Complete Time: 20:35 [facility] 04/24 19:23 Order name: LFT's; Complete Time: 20:54 [facility] 04/24 19:23 Order name: Magnesium; Complete Time: 20:54 [facility] 04/24 19:23 Order name: NT PRO-BNP; Complete Time: 20:54 7 04/24 19:23 Order name: PT-INR; Complete Time: 20:35 [facility] 04/24 19:23 Order name: Troponin (emerg Dept Use Only); Complete Time: 20:52 [facility] 04/24 19:23 Order name: Acetaminophen; Complete Time: 20:54 [facility] 04/24 19:23 Order name: Salicylate; Complete Time: 20:54 [facility] 04/24 19:23 Order name: UDS; Complete Time: 20:35 [facility] 04/24 19:23 Order name: ETOH Level; Complete Time: 20:54 [facility] 04/24 20:12 Order name: Urine Dipstick-Ancillary; Complete Time: 20:35 [facility] 04/24 21:59 Order name: COVID-19 (Coronavirus) Document "Date of Onset" if Symptomatic 2 04/24 23:27 Order name: SARS-COV-2 RT PCR; Complete Time: 00:17 [facility] 04/24 19:23 Order name: XRAY Chest (1 view); Complete Time: 20:54 [facility] 04/24 19:23 Order name: CT Head Brain wo Cont; Complete Time: 20:35 [facility] 04/25 04:38 Order name: CBC with Automated Diff EDMS 04/25 05:10 Order name: Comprehensive Metabolic Panel EDMS 04/25 05:10 Order name: Lipid Profile EDMS 04/25 05:10 Order name: T4 Free EDMS 04/25 05:10 Order name: Thyroid Stimulating Hormone EDMS 04/25 05:12 Order name: Troponin I EDMS 04/25 05:59 Order name: Urine Dipstick-Ancillary EDMS 04/25 08:15 Order name: US EDMS 04/25 08:21 Order name: Urinalysis EDMS 04/25 08:45 Order name: Urine Microscopic Only [facility] 04/25 10:41 Order name: Troponin I [facility] 04/24 19:23 Order name: EKG; Complete Time: 19:24 [facility] 04/24 19:23 Order name: Cardiac monitoring [facility] 04/24 19:23 Order name: EKG - Nurse/Tech; Complete Time: 19:41 [facility] 04/24 19:23 Order name: IV Saline Lock; Complete Time: 19:41 [facility] 04/24 19:23 Order name: Labs collected and sent; Complete Time: 19:41 [facility] 04/24 19:23 Order name: O2 Per Protocol; Complete Time: 19:41 [facility] 04/24 19:23 Order name: O2 Sat Monitoring; Complete Time: 19:41 [facility] 04/24 19:23 Order name: Urine Dipstick-Ancillary (obtain specimen); Complete Time: 19:41 [facility] Administered Medications: 21:26 Drug: Lovenox (enoxaparin) 1 mg/kg Route: Sub-Q; Site: abdomen; mr2 21:26 Drug: Aspirin Chewable Tablet 324 mg Route: PO; mr2 21:26 Drug: Metoprolol 25 mg Route: PO; mr2 Disposition Summary: 04/24/21 21:39 Hospitalization Ordered Hospitalization Status: Inpatient Admission [facility] Provider: Tobias Oliveira Condition: Stable [facility] Problem: new [facility] Symptoms: have improved [facility] Bed/Room Type: Standard [facility] Location: Telemetry/MedSurg (Inpatient)(04/25/21 13:20) Room Assignment: [facility](04/25/21 13:20) Diagnosis - Subsequent non-ST elevation (NSTEMI) myocardial infarction [facility] - Confusion [facility] Forms: - Medication Reconciliation Form [facility] - SBAR form [facility] NIH Stroke Scale - NIH Stroke Score Date: 04/24/2021 Time: 19:05 Total Score = 0 1a. Level of Consciousness (LOC) - 0(Alert) 1b. Level of Consciousness (LOC) (Month \\T\\ Age) - 0(Both) 1c. LOC Commands (Open \\T\\ Closes Eyes/Sewer Inspector) - 0(Both) 2. Best Gaze (Lateral Gaze Paresis) - 0(Normal) 3. Visual Field Loss - 0(No visual loss) 4. Facial Palsy - 0(Normal) 5a. Left Arm: Motor (10-second hold) - 0(No drift) 5b. Right Arm: Motor (10-second hold) - 0(No drift) 6a. Left Leg: Motor (5-second hold - always test supine) - 0(No drift) 6b. Right Leg: Motor (5-second hold - always test supine) - 0(No drift) 7. Limb Ataxia (finger/nose \\T\\ heel/richardson - test with eyes open) - 0(Absent) 8. Sensory Loss (pinprick arms/legs/face) - 0(Normal) 9. Best Language: Aphasia (description/naming/reading) - 0(No aphasia) 10. Dysarthria (speech clarity - read or repeat words) - 0(Normal) 11. Extinction and Inattention (visual/tactile/auditory/spatial/personal) - 0(No abnormality) Initials: [facility] Signatures: Dispatcher [employer] EDMS Stephy Zambrano Tonia Mensah RN RN Chanda Juarez RN RN Alessio David, METEOROLOGY FACULTY MEMBER-C METEOROLOGY FACULTY MEMBER-Cla1 Elsy Billy RN RN vg1 Indra Meyers MD MD 7 Lee Daley RN RN mr2 Corrections: (The following items were deleted from the chart) 23:40 21:39 Telemetry/MedSurg (Inpatient) [facility] 23:40 21:39 [facility] 04/25 13:20 11 23:40 [facility] ER HOLD [facility] 04/25 13:20 11 23:40 ERHOLD- [facility] 04/25 13:20 13:20 Telemetry/MedSurg (Inpatient) [facility] 13:20 13:20 214 [facility]
--- NOTE | 2021-04-24 22:07 | P.HP ---
Certification for Inpatient Patient admitted to: Inpatient With expected LOS: >2 Midnights Patient will require the following post-hospital care: None Practitioner: I am a practitioner with admitting privileges, knowledge of patient current condition, hospital course, and medical plan of care. Services: Services provided to patient in accordance with Admission requirements found in Title 42 Section 412.3 of the Code of Federal Regulations <Alessio Lyons - Last Filed: 04/24/21 22:03> Patient History Date of Service: 04/24/21 Primary Care Provider: Dr. Corbett (Out of [facility]) Reason for admission: NSTEMI History of Present Illness: 81-year-old female with history of hypertension, hypothyroidism, osteoporosis presented to the emergency department after an episode where she got in her vehicle to drive to [place] and returned shortly after confused. Daughter reports that patient never did get to [place] and instead drove home, patient was unsure of what was going on. Patient soon after recovered from this episode and presented to the emergency department for evaluation. Patient was evaluated in the emergency department labs were significant for hemoglobin 11.5 hematocrit 34.1 chloride 110 BUN 25 creatinine 1.45 GFR 35 glucose 108 troponin 0.3 BNP 2782, baseline's renal function patient with CKD 3, currently at baseline renal function. CT head brain negative for any acute findings, patient with NSTEMI, ED provider wishes to admit for further evaluation and management. Patient is and has been chest pain-free although did report some tingling in one of her arms yesterday per the daughter. - Past Medical/Surgical History Diabetic: No -: HTN -: Hypothyroidism -: Osteoporosis -: Lung Cancer -: Diverticulitis -: Appendectomy -: Left Lower Lobectomy -: Hysterectomy -: pessary insertion -: cholecystectomy -: perforated colon sx - Family History Father -: Cancer Notes: lung cancer Mother -: Lung disease, Diabetes Notes: asthma Sister -: Cancer - Social History Smoking Status: Former smoker Alcohol use: No CD- Drugs: No Caffeine use: Yes Place of Residence: Home <Alessio Lyons - Last Filed: 04/24/21 22:03> Date of Service: 04/24/21 <Tobias Oliveira - Last Filed: 04/25/21 21:38> Allergies codeine Allergy (Mild, Verified 08/06/13 16:03) hyperactivity morphine Allergy (Verified 08/06/13 16:03) swelling to extremities Home Medications: Gabapentin [Neurontin*] 100 mg PO BID 11/08/18 Levothyroxine Sodium [Levoxyl] 50 mcg PO [id number] 11/08/18 Losartan Potassium 25 mg PO LUNCH 11/08/18 Metoprolol Tartrate [Lopressor*] 50 mg PO BID 11/08/18 Omeprazole 20 mg PO LUNCH 11/08/18 Raloxifene HCl [Evista*] 60 mg PO LUNCH 11/08/18 Topiramate [Topamax*] 25 mg PO BID 11/08/18 Tramadol HCl [Ultram] 50 mg PO BID PRN 11/08/18 Review of Systems 10-point ROS is otherwise unremarkable Neurological: Confusion, As per HPI <Alessio Lyons - Last Filed: 04/24/21 22:03> Physical Examination - Physical Exam General: Alert, In no apparent distress, Oriented x3 HEENT: Atraumatic, PERRLA, Mucous membr. moist/pink, EOMI, Sclerae nonicteric Neck: Supple, 2+ carotid pulse no bruit, No LAD, Without JVD or thyroid abnormality Respiratory: Clear to auscultation bilaterally, Normal air movement Cardiovascular: Regular rate/rhythm, Normal S1 S2 Gastrointestinal: Normal bowel sounds, No tenderness Musculoskeletal: No tenderness Integumentary: No rashes Neurological: Normal speech, Normal strength at 5/5 x4 extr, Normal tone, Normal affect - Studies Laboratory Data (last 24 hrs) 04/24/21 20:00: PT 10.5, INR 0.91 04/24/21 20:00: WBC 10.10, Hgb 11.5 L, Hct 34.1 L, Plt Count 207 04/24/21 20:00: Sodium 144, Potassium 4.5, BUN 25 H, Creatinine 1.45 H, Glucose 108 H, Magnesium 2.2, Total Bilirubin 0.3, AST 32, ALT 24, Alkaline Phosphatase 50 <Alessio Lyons - Last Filed: 04/24/21 22:03> Assessment and Plan - Plan Assessment: NSTEMI Acute confusion/memory loss CKD 3 Hypertension Hyperlipidemia Hypothyroidism Osteoporosis Plan: NSTEMI: Trend troponin, monitor on telemetry, cardiology consulted echocardiogram ordered continue with beta-vicky, statin, aspirin therapy. Patient with no known coronary artery disease has never had echocardiogram or heart catheterization. Patient denies any chest pain now or in the recent past. Acute confusion/memory loss: Mostly resolved, family reports patient is still little bit forgetful, currently oriented x4. CKD 3: Patient is at baseline renal function continue with gentle hydration Hypertension: Obtain and continue home medications Hyperlipidemia: Obtain and continue home medications Hypothyroidism: Obtain and continue home medications Osteoporosis: Obtain and continue home medications DVT PPX: Full dose Lovenox Code status: Full code Discharge Plan: Home Plan to discharge in: 48 Hours - Advance Directives Does patient have a Living Will: Yes Does patient have a Durable POA for Healthcare: Yes - Code Status/Comfort Care Code Status Assessed: Yes (Full code) Critical Care: No Time Spent Managing Pts Care (In Minutes): 55 <Alessio Lyons - Last Filed: 04/24/21 22:03> - Problems (Diagnosis) (1) TIA (transient ischemic attack) Current Visit: Yes Status: Acute (2) Elevated troponin Current Visit: Yes Status: Acute (3) Altered mental status Current Visit: Yes Status: Acute <Tobias Oliveira - Last Filed: 04/25/21 21:38> Date of Service: 04/24/21 Subjective Agree with HPI as mentioned above Review of Systems 10-point ROS is otherwise unremarkable Physical Examination - Vital Signs Reviewed - Physical Exam General: Alert, In no apparent distress HEENT: Atraumatic, PERRLA, EOMI Neck: Supple, JVD not distended Respiratory: Clear to auscultation bilaterally, Normal air movement Cardiovascular: Regular rate/rhythm, Normal S1 S2 Gastrointestinal: Normal bowel sounds, No tenderness Musculoskeletal: No tenderness Integumentary: No rashes Neurological: Normal speech, Normal tone, Normal affect Lymphatics: No axilla or inguinal lymphadenopathy - Studies Medications List Reviewed: Yes Assessment & Plan - Problems (Diagnosis) (1) TIA (transient ischemic attack) Current Visit: Yes Status: Acute (2) Elevated troponin Current Visit: Yes Status: Acute (3) Altered mental status Current Visit: Yes Status: Acute - Plan Continue with plan of care as mentioned below: 1. Serial troponins and EKG 2. Neurology and Cardiology consultation 3. Echocardiogram and stress test along with imaging studies of the brain to further assess neurologic status 4. Anti-platelet therapy, anti coagulation, beta-vicky, statin, and O2 as needed 5. Strict blood pressure and blood sugar control; may allow some permissive hypertension 6. UA with microscopy to rule out UTI - Advance Directives Does patient have a Living Will: Yes Does patient have a Durable POA for Healthcare: No <Tobias Oliveira - Last Filed: 04/25/21 21:38>
[2021-04-25] MEDS ORDERED: ONDANSETRON 4 MG/2 ML VIAL IV PRN (02:14)
[2021-04-25] MEDS ORDERED: ACETAMINOPHEN 500 MG TAB ONE ×2 (02:30→08:21)
[2021-04-25] MEDS: ACETAMINOPHEN 500 MG TAB PO PRN ×3 (02:39→19:40)
[2021-04-25] MEDS ORDERED: NA CHLORIDE 0.9% 1,000 ML ONE (02:54)
[2021-04-25] MEDS: NA CHLORIDE 0.9% 1,000 ML IV SCH ×2 (02:57→14:00)
[2021-04-25 04:32] LABS: Absolute Lymphocytes (CBC) 2.2 K/uL (0.7-4.9); Basophils % 1.6 % (0-1.3); Hematocrit 32.7 % (36.0-45.0); Lymphocytes % 23.9 % (15.3-44.8); MPV 10.4 fL (7.6-11.3); RBC Red Blood Cell Count 3.48 M/uL (3.86-4.86)
[2021-04-25 05:09] LABS: Albumin 2.5 g/dL (3.4-5.0); Bilirubin Total 0.2 mg/dL (0.2-1.0); Potassium 3.8 mmol/L (3.5-5.1); Protein, Total 5.9 g/dL (6.4-8.2)
[2021-04-25 05:10] LABS: Thyroid Stimulating Hormone 3.9 uIU/mL (0.360-3.740)
[2021-04-25 05:15] VITALS: BMI 23.3
[2021-04-25 05:59] LABS: Urine Blood Negative (Negative); Urine Glucose Negative (Negative); Urine Protein Negative (Negative)
[2021-04-25] MEDS: LEVOTHYROXINE SOD 0.05 MG TABLET PO SCH (06:30)
[2021-04-25] MEDS ORDERED: LOSARTAN POTASSIUM 50 MG TABLET ONE (07:49)
[2021-04-25] MEDS ORDERED: FOLIC ACID 1 MG TABLET ONE (07:49)
[2021-04-25] MEDS ORDERED: METOPROLOL TAR 50 MG TAB ONE (07:49)
[2021-04-25] MEDS ORDERED: POTASSIUM CL SA 10 MEQ TAB PO ONE ×2 (07:50→09:00)
[2021-04-25] MEDS ORDERED: ASPIRIN EC 81 MG TAB PO ONE (07:50)
[2021-04-25] MEDS ORDERED: ENOXAPARIN 60 MG/0.6 ML SQ ONE (07:50)
--- NOTE | 2021-04-25 08:15 | RAD REPORT ---
EXAM DESCRIPTION: - CP - 04/25/2021 3:28 am CLINICAL HISTORY: Poss. TIA, memory loss, forgetfulness COMPARISON: No comparisons TECHNIQUE: Real-time sonographic evaluation of bilateral carotid and vertebral systems was performed . Mantilla scale and Doppler interrogation were performed with waveform tracing bilaterally. FINDINGS: Normal high resistance waveforms are noted in both external carotid arteries. The common c arotid arteries and internal carotid arteries show normal low resistance waveforms. Significant calcified plaquing changes are present at the origin of the right external carotid artery elevating the velocity. Generally, external carotid artery stenoses are not clinically significant. Calcified plaquing changes are present in each carotid bulb, right greater than left. Visually the ri ght bulb plaquing changes appear to narrow the vessel lumen. However, the right carotid velocity valu es are not abnormally elevated. The ICA/CCA ratio is 1.52 on the right and 1.22 on the left. Antegrade flow seen in both vertebral arteries. Velocity values and ratios were recorded and are retained in the patient's imaging records. IMPRESSION: The right greater than left calcified plaquing changes are present. Currently the atherosclerotic disease does not cause a significant degree of stenosis.
[2021-04-25 08:21] LABS: Urine Appearance Clear (Clear); Urine Bilirubin Negative (Negative); Urine Blood Negative (Negative); Urine Color Yellow (Yellow); Urine Glucose Negative (Negative); Urine Protein Negative (Negative); Urine Urobilinogen 0.2 mg/dL (0.2-1.0)
[2021-04-25 08:25] LABS: Urine Microscopic Reflex ORDER UMIC
[2021-04-25] MEDS: FOLIC ACID 1 MG TABLET PO SCH (08:27)
[2021-04-25] MEDS: METOPROLOL TAR 50 MG TAB PO SCH ×2 (08:27→20:03)
[2021-04-25] MEDS: ASPIRIN EC 81 MG TAB PO SCH (08:27)
[2021-04-25 08:44] LABS: Calcium Oxalate Crystals- Ur PRESENT (NONE SEEN); Urine Bacteria <20 /HPF (<20); Urine Mucus 1+ /HPF (NONE SEEN); Urine RBC <5 /HPF (NONE SEEN)
[2021-04-25] MEDS: ENOXAPARIN 60 MG/0.6 ML SQ SCH (08:45)
[2021-04-25] MEDS ORDERED: LOSARTAN POTASSIUM 50 MG TABLET PO SCH (09:00)
[2021-04-25] MEDS: ATORVASTATIN 40 MG TAB PO SCH (20:03)
--- NOTE | 2021-04-25 21:37 | P.PN ---
Subjective Date of Service: 04/25/21 Patient clinically doing better. Symptoms have improved. Troponins are elevated. Neurologically intact Review of Systems 10-point ROS is otherwise unremarkable Physical Examination - Vital Signs Temperature: 98.4 F Blood Pressure: 170/80 Pulse: 63 Respirations: 16 Pulse Ox (%): 97 - Physical Exam General: Alert, In no apparent distress HEENT: Atraumatic, PERRLA, EOMI Neck: Supple, JVD not distended Respiratory: Clear to auscultation bilaterally, Normal air movement Cardiovascular: Regular rate/rhythm, Normal S1 S2 Gastrointestinal: Normal bowel sounds, No tenderness Musculoskeletal: No tenderness Integumentary: No rashes Neurological: Normal speech, Normal tone, Normal affect Lymphatics: No axilla or inguinal lymphadenopathy - Studies Medications List Reviewed: Yes Assessment & Plan - Problems (Diagnosis) (1) TIA (transient ischemic attack) Current Visit: Yes Status: Acute (2) Elevated troponin Current Visit: Yes Status: Acute (3) Altered mental status Current Visit: Yes Status: Acute - Plan 1. Serial troponins and EKG 2. Appreciate Cardiology consultation 3. Echocardiogram and stress test along with imaging studies of the brain to further assess neurologic status 4. Anti-platelet therapy, anti coagulation, beta-vikcy, statin, and O2 as needed 5. IV morphine for pain 6. UA with microscopy - Advance Directives Does patient have a Living Will: Yes Does patient have a Durable POA for Healthcare: No
[2021-04-25 22:45] VITALS: O2SAT 97
[2021-04-26] MEDS: NA CHLORIDE 0.9% 1,000 ML IV SCH ×3 (01:16→20:00)
[2021-04-26] MEDS: ACETAMINOPHEN 500 MG TAB PO PRN ×2 (04:27→19:21)
[2021-04-26] MEDS ORDERED: cloNIDine HCL 0.1 MG TAB PO PRN (04:38)
[2021-04-26] MEDS ORDERED: cloNIDine HCL 0.1 MG TAB PO SCH (05:00)
[2021-04-26 05:37] LABS: Basophils % 1.8 % (0-1.3); Hematocrit 33.5 % (36.0-45.0); Lymphocytes % 23.9 % (15.3-44.8); MPV 10.3 fL (7.6-11.3); RBC Red Blood Cell Count 3.53 M/uL (3.86-4.86)
[2021-04-26] MEDS: LEVOTHYROXINE SOD 0.05 MG TABLET PO SCH (06:06)
[2021-04-26 06:14] LABS: Albumin 2.2 g/dL (3.4-5.0); Bilirubin Total 0.1 mg/dL (0.2-1.0); Potassium 4.2 mmol/L (3.5-5.1); Protein, Total 5.4 g/dL (6.4-8.2)
[2021-04-26] MEDS ORDERED: TRAMADOL HCL 50 MG TAB PO PRN (07:59)
[2021-04-26] MEDS ORDERED: REGADENOSON 0.4 MG/5 ML SYR IV ONE (08:16)
[2021-04-26] MEDS ORDERED: GABAPENTIN 100 MG CAP PO SCH (09:00)
[2021-04-26] MEDS: FOLIC ACID 1 MG TABLET PO SCH (09:00)
[2021-04-26] MEDS: ASPIRIN EC 81 MG TAB PO SCH (09:00)
[2021-04-26] MEDS ORDERED: METOPROLOL TAR 50 MG TAB PO SCH (09:00)
[2021-04-26] MEDS: ENOXAPARIN 60 MG/0.6 ML SQ SCH (09:00)
[2021-04-26] MEDS: TOPIRAMATE 25 MG TAB PO SCH ×2 (10:11→20:30)
[2021-04-26] MEDS: METOPROLOL TAR 50 MG TAB PO SCH ×2 (10:11→20:31)
--- NOTE | 2021-04-26 10:30 | RAD REPORT ---
EXAM DESCRIPTION: NM - Rest Stress Cardiac Imaging - 04/26/2021 10:16 am CLINICAL HISTORY: CP Chest pain. COMPARISON: <Comparisons> TECHNIQUE: The patient was administered approximately 10mCi of Tc 99m Sestamibi prior to resting SPE CT imaging of the heart. The patient was then administered approximately 30 mCi of Tc 99m Sestamibi f ollowing exercise or pharmacologic stress. Multiplanar SPECT images were reviewed. FINDINGS: No stress induced ischemic defect is seen to suggest stress induced ischemia. No fixed def ect is seen to suggest hibernating myocardium or scarred myocardium. The end diastolic volume is 56 ml, the end systolic volume is 14 ml, and the ejection fraction is 75 %. IMPRESSION: No stress induced ischemia.
--- NOTE | 2021-04-26 11:37 | PN ---
Date of Progress Note: 04/26/2021 Ms. Marcelino had came in with elevated troponin, TIA, anemia, renal insufficiency. A stress test was do ne today and showed no evidence of ischemia. I do not plan to do a heart catheterization at this poi nt. I think the troponin was elevated secondary to demand ischemia from TIA and anemia and renal ins ufficiency. Neurological consultation is pending. MRI and MRA of the brain are pending. Carotid Do ppler is within normal limit. She has COPD. From my standpoint, no plan for catheterization. Shane nue aspirin. Continue statin. Consider Plavix. See what Neurology says. We will make further hughes ges depending on her MRI and MRI, but I will sign off her case for now. KYLE/KATHI Voice ID: [id number] Report ID: [id number]
--- NOTE | 2021-04-26 11:37 | CON ---
Date of Consultation: 04/25/2021 Admitted on 04/24/[address] Corbett for non-STEMI. I saw the patient on 04/25/2021. History Of Present Illness: Ms. Marcelino is an 81-year-old woman, recently had a stress test in my offi ce about 6 months ago that was negative. She came into the emergency room with disorientation and lo ss of memory for a few minutes. Apparently, she was going to [place], but when she got there, she cou ld not remember anything from the time she got to [place] until approximately an hour or 2 later. Phylicia chacko had any chest pain, nausea, vomiting, diaphoresis, PND, orthopnea, pedal edema, palpitation, or syn cope. Denied any fever or chills. Denied any nausea or vomiting. She went back to normal self afte r few hours. Carotid Doppler was negative. EKG was unremarkable, but her troponin was elevated and I was consulted. Allergies: SHE IS ALLERGIC TO CODEINE AND MORPHINE. Review of Systems: Negative. Social History: Negative. Family History: Negative. Past Medical History: Includes hypertension and hypothyroidism. Medications: Include Synthroid, losartan, and metoprolol. Physical Examination: Vital Signs: Stable, afebrile, sinus rhythm. HEENT: Negative. Neck: Supple without any bruit, lymphadenopathy, JVD, or thyromegaly. Chest: Clear to auscultation and percussion. Cardiac: Revealed a regular rhythm and rate. No murmurs, gallops, or rubs. Abdomen: Benign. Extremities: Revealed no clubbing, cyanosis, or edema. Laboratory Data: Her chest x-ray shows COPD. Head CT showed no acute abnormality. Carotid Doppler was unremarkable. Laboratory evaluation was all within normal limit. Her creatinine initially was 1 .5 and down to 1.21. Her hemoglobin was 10.9. Troponin was 1.29 and came down to 0.91. Lipid profi le was normal. Impression And Plan: 1.Transient ischemic attack. 2.Elevated troponin secondary to transient ischemic attack and anemia, demand ischemia. 3.Dyslipidemia. 4.Hypertension. 5.Chronic obstructive pulmonary disease. I will continue her present regimen, treat with aspirin, c onsider Plavix. Definitely, start statin, obtain an echocardiogram and a stress test. Obtain an MRI . If the stress test is abnormal, I will cath her. We will see what the MRI shows. I think neurolo gical consultation is reasonable. KYLE/KATHI Voice ID: [id number] Report ID: [id number]
[2021-04-26] MEDS ORDERED: PANTOPRAZOLE 40MG TABLET PO SCH (12:00)
[2021-04-26] MEDS ORDERED: HOME MED 1 EA UNK (Omeprazole [Omeprazole] 20 MG Capsule.Dr) PO SCH (12:00)
[2021-04-26] MEDS ORDERED: LOSARTAN POTASSIUM 50 MG TABLET PO SCH (12:00)
[2021-04-26] MEDS ORDERED: RALOXIFENE HCL 60 MG TAB PO SCH (12:00)
[2021-04-26] MEDS ORDERED: HOME MED 1 EA UNK (Losartan Potassium [Losartan Potassium] 25 MG Tablet) PO SCH (12:00)
--- NOTE | 2021-04-26 12:39 | RAD REPORT ---
EXAM DESCRIPTION: MRI - Brain Wo Cont - 04/26/2021 12:27 pm CLINICAL HISTORY: TIA COMPARISON: Head CT April 24, 2021 TECHNIQUE: Axial, sagittal, and coronal magnetic resonance images of the brain were obtained. FINDINGS: Mild signal within periventricular, deep and subcortical white matter probably ischemic ch anges secondary to small vessel disease Diffusion-weighted/ADC mapping does not reveal evidence of acute infarction. The ventricles are normal caliber. An extra-axial fluid collection is not noted. Signal is present within the right mastoids IMPRESSION: No acute intracranial abnormality noted Signal within the right mastoids may indicate mastoiditis
--- NOTE | 2021-04-26 12:42 | RAD REPORT ---
EXAM DESCRIPTION: MRI - MRA Head Wo Cont - 04/26/2021 12:27 pm CLINICAL HISTORY: TIA COMPARISON: 2013 TECHNIQUE: Magnetic resonance angiogram was performed. 3D MIPS reconstruction performed FINDINGS: The anterior cerebral, middle cerebral, posterior cerebral, distal internal carotid and ba silar arteries do not demonstrate a significant stenosis. An aneurysm is not displayed. IMPRESSION: No acute abnormality displayed
--- NOTE | 2021-04-26 15:01 | ECHO ---
HEIGHT: 4 ft 9 in WEIGHT: 108 lb 0 oz DATE OF STUDY: 04/26/[address]: Alessio Lyons NP 2-DIMENSIONAL: YES M.MODE: YES DOPPLER: YES COLOR FLOW: YES TDS: NO PORTABLE: NO DEFINITY: NO BUBBLE STUDY: NO DIAGNOSIS: NSTEMI CARDIAC HISTORY: CATHERIZATION: SURGERY: PROSTHETIC VALVE: PACEMAKER: MEASUREMENTS (cm) DIASTOLIC (NORMALS) SYSTOLIC (NORMALS) IVSd 0.8 (0.6-1.2) LA Diam 3.7 (1.9-4.0) LVEF 60-65% LVIDd 4.2 (3.5-5.7) LVIDs 2.6 (2.0-3.5) %FS 38% LVPWd 0.8 (0.6-1.2) Ao Diam 3.0 (2.0-3.7) 2 DIMENSIONAL ASSESSMENT: RIGHT ATRIUM: NORMAL LEFT ATRIUM: NORMAL RIGHT VENTRICLE: NORMAL LEFT VENTRICLE: NORMAL TRICUSPID VALVE: MITRAL VALVE: MITRAL ANNULAR CALCIFICATION PULMONIC VALVE: NORMAL AORTIC VALVE:THICKENED, NO AORTIC STENOSIS PERICARDIAL EFFUSION: NONE AORTIC ROOT: NORMAL LEFT VENTRICULAR WALL MOTION: NORMAL DOPPLER/COLOR FLOW: SEE BELOW. COMMENTS: NORMAL LEFT VENTRICULAR EJECTION FRACTION 60-65%. NORMAL WALL MOTION. MILD MITRAL AND TRICUSPID REGURGITATION. TECHNOLOGIST: Karmen ALMEIDA
--- NOTE | 2021-04-26 15:17 | TREADPHA ---
DX: CHEST PAIN Date of Study: 04/26/2021 Ht: 4' 9 " Wt: 108 lb 0 oz Consulting Physician: HANS MEDICATIONS: TYNELOL, ASPIRIN, LIPTIOR, CUTAPRESS, LOVENOX, NEURONTIN HISTORY: HYPERTENSION, DEPRESSED THYROID, POSITIVE FAMILY HISTORY, LUNG CANCER AND FORMER SMOKER. PHYSICIAL EXAMINATION: RESTING B.P.: 150/71 RESTING H.R.: 63 RESTING EKG: NORMAL PROTOCOL: LEXISCAN EXERCISE TIME: 3:30 B.P. AT PEAK STRESS: 194/82 IMPRESSION: LEXISCAN STRESS PREFORMED. CARDIOLITE INJECTED PER PROTOCOL. SEE NUCLEAR MEDICINE REPORT. NO VENTRICULAR OR SUPRAVENTRICULAR TACHYCARDIA. NO EKG CHANGES WITH LEXISCAN.
--- NOTE | 2021-04-26 19:48 | P.PN ---
Subjective Date of Service: 04/26/21 Chief Complaint: ALTERED MENTAL STATUS Subjective: Improving ELHAM HAS HTN, DJD BY HISTORY, SHE COMES WITH CONFUSION. ON MONDAY SHE HAD R SIDE ARM BURNING AND NOTHING MORE UNTIL MONDAY. ON MONDAY SHE DROVE FROM HER [employer]OL[employer] WORK AND ENDED UP AT HER HOME AND HAD NO IDEA HOW SHE GOT THERE. SHE STAYED CONFUSED UNTIL MONDAY 9 PM AND THEN IS BACK TO HER BASELINE. Review of Systems 10-point ROS is otherwise unremarkable General: Weakness Physical Examination - Vital Signs Temperature: 97.9 F Blood Pressure: 140/69 Pulse: 69 Respirations: 16 Pulse Ox (%): 96 - Physical Exam General: Alert, In no apparent distress HEENT: Atraumatic, PERRLA, EOMI Neck: Supple, JVD not distended Respiratory: Clear to auscultation bilaterally, Normal air movement Cardiovascular: Regular rate/rhythm, Normal S1 S2 Gastrointestinal: Normal bowel sounds, No tenderness Musculoskeletal: No tenderness Integumentary: No rashes Neurological: Normal speech, Normal tone, Normal affect Lymphatics: No axilla or inguinal lymphadenopathy - Studies Medications List Reviewed: Yes Assessment And Plan - Current Problems (Diagnosis) (1) Atypical seizure Current Visit: Yes Status: Acute Plan: THERE IS NO TIA OR CVA ON MRI. THERE IS NO [place]. HER TROPONIN WAS MILD HIGH BUT HAS NORMAL STRESS TEST. CLINICAL EVALUATION SUGGESTS ATYPICAL SEIZURES. DR. DOVE AGREES AND WE DECIDED TO START KEPPRA IT WORKS GREAT FOR SUCH SYMPTOMS.
[2021-04-26] MEDS: ATORVASTATIN 40 MG TAB PO SCH (20:30)
[2021-04-26] MEDS ORDERED: levETIRAcetam 500 MG TAB PO SCH (21:00)
--- NOTE | 2021-04-26 22:15 | CON ---
Reason For Consultation: Consultation called because of possible seizure versus stroke. History Of Present Illness: Ms. Marcelino is an 81-year-old right-handed patient with hyperten stephanie, hypothyroidism, lung cancer, diverticulitis, who comes to [facility] with an episode o f confusion, transient amnesia, and some right-sided numbness. Patient's daughter was in the room. The events occurred over the weekend. Apparently on Monday, she was doing well, then had some right- sided numbness of arm and leg, perhaps lasted about 30 minutes, and then subsequently the next day ac tually on Monday, she apparently drove to [place], but when she got there, apparently was very confuse d and somehow drove back home. At that point when her family saw her in the car, her head was held i n her hands and she was disoriented, did not know where she was, did not know how she got back home. That confusion lasted about less than 12 hours and then she was brought into [facility]. H er head CT scan showed no acute ischemic or hemorrhagic change. Subsequent brain MRI with MRA ruled out presence of any acute ischemic or hemorrhagic findings. Head and neck MRA showed no significant abnormalities. Echocardiogram, ejection fraction 60% to 65% with trace mitral and tricuspid regurgit ation. She had a pharmacological stress test, showed no EKG changes. Carotid artery ultrasound show ed right greater than left calcified plaque, but no significant degree of stenosis bilaterally. Card iac nuclear imaging showed no stress-induced ischemia. The case was discussed with Dr. Corbett, and gi elvis the possibility of a seizure as stroke was ruled out, the patient was started on Keppra 250 mg tw ice daily. She is being discharged home and will follow up in Dr. Cotter's office with maintaining possible seizure diary. She is actually back to her normal level of functioning and is to be discharged after an EEG is done. Study will be reviewed. Past Medical History: As noted in addition to lung cancer and osteoporosis. Surgical History: Appendectomy, left lower lobectomy, hysterectomy, pessary insertion, cholecystecto my, perforated colon surgery. Family History: Father with lung cancer. Mother; lung disease, diabetes, asthma. Sister with cance r. Social History: No alcohol, tobacco, or IV drug use. Patient lives at home with family. Allergies: CODEINE, MORPHINE. Medications: At home: Gabapentin 100 mg twice daily, levothyroxine 50 mcg daily, losartan 25 mg anita ly, Lopressor 50 mg twice daily, omeprazole 20 mg daily, Evista 60 mg at lunch, Topamax 25 mg twice d aily, Ultram 50 mg twice daily. Review of Systems: Aside from mentioned above with confusion, she denies any recent fevers, chills, nausea, vomiting, my algias, arthralgias, headache, weight change, rash. No psychiatric issues. No gastrointestinal issu es. Physical Examination: Vital Signs: Blood pressure 140/69, pulse 69, respiratory rate 16, temperature 97.9, oxygen saturati on 97% on room air. Weight 108 pounds, height 4 feet 9 inches, BMI 23.4. General: Ms. Marcelino is resting in bed. She is in no acute distress. She is normocephalic, atraumati c. Sclerae anicteric. Oropharynx pink and moist. Neck: Supple. Chest: Clear. Heart: Regular. Extremities: Show no clubbing, cyanosis, or edema. Neurologic: She has no focal neurological deficits in terms of cranial nerves, motor, coordination, sensation. No balance issues. Laboratory Studies: Complete blood count with differential shows mild anemia of 10.9 hemoglobin, whi te blood cell count is normal. INR is normal at 0.91. Sodium 143, potassium 4.2, calcium 7.8, TSH 3 .90. LDL cholesterol 56, HDL 54. Urinalysis is negative. Urine drug screen negative. COVID-19 lisa t is negative. Assessment: Ms. Marcelino is an 81-year-old patient with a possible complex partial seizure as the cause of her prolonged amnestic episode, still to be considered as a state of fugue or transient global am nesia. She has not had a stroke by MRI. Plan: 1.Keppra 250 mg twice daily. 2.Continue medications for comorbid conditions which are many, will be aspirin, Lipitor, clonidine, folic acid, gabapentin, levothyroxine, Cozaar as well as other medications. Patient had an EEG that will be reviewed. After discharge, follow up with Dr. Cotter in clinic 1 month later and may consi fox changing Keppra dosage and we will check blood level at that time. LB/MODL Voice ID: [id number] Report ID: [id number]
[2021-04-27] MEDS: ACETAMINOPHEN 500 MG TAB PO PRN (05:41)
[2021-04-27] MEDS: LEVOTHYROXINE SOD 0.05 MG TABLET PO SCH (05:41)
[2021-04-27] MEDS: NA CHLORIDE 0.9% 1,000 ML IV SCH (05:42)
[2021-04-27] MEDS ORDERED: LEVOTHYROXINE SOD 0.075 MG TAB PO SCH (06:00)
[2021-04-27 06:02] LABS: Basophils % 1.3 % (0-1.3); Hematocrit 33.7 % (36.0-45.0); Lymphocytes % 20.4 % (15.3-44.8); MPV 10.3 fL (7.6-11.3); RBC Red Blood Cell Count 3.54 M/uL (3.86-4.86)
[2021-04-27 06:21] LABS: Albumin 2.3 g/dL (3.4-5.0); Bilirubin Total 0.3 mg/dL (0.2-1.0); Potassium 4.8 mmol/L (3.5-5.1); Protein, Total 5.4 g/dL (6.4-8.2)
[2021-04-27 08:17] VITALS: BP 162/77; TEMP 97.6
[2021-04-27] MEDS ORDERED: ENOXAPARIN 60 MG/0.6 ML SQ SCH (09:00)
--- NOTE | 2021-04-27 21:26 | P.DS ---
Admission Date: 04/24/21 Discharge Date: 04/27/21 Disposition: ROUTINE DISCHARGE Discharge Condition: FAIR Reason for Admission: ALTERED MENTAL STATUS - Problems (1) Atypical seizure Status: Acute Hospital Course: ELHAM IS 81 YEARS OLD LADY WITH HTN. SHE HAD EPISODE OF CONFUSION, GLOBAL AMENESIA FOR A FEW HOURS WITH NO FOCAL DEFICITS. SHE MOST LIKELY HAD ATYPICAL SEIZURES. SHE IS ON ASPIRIN TWICE A WEEK SHE HAD MILD RENAL INSUFFICIENCY. SHE DID NOT SAHOW ANY STROKE ON MRI. SHE WILL TAKE ASPIRIN 81 MG EVERY OTHER DAY NOW. WE STARTED HER OK KEPPRA 500 MG PO BID AND WILL NOT DRIVE UNTIL RELEASED BY DR. DOVE. Vital Signs/Physical Exam: Temp Pulse Resp BP Pulse Ox 97.6 F 65 16 162/77 H 98 04/27/21 08:00 04/27/21 08:00 04/27/21 08:00 04/27/21 08:00 04/27/21 08:00 General: Alert, In no apparent distress, Oriented x3 HEENT: Atraumatic, PERRLA, EOMI Neck: Supple, JVD not distended Respiratory: Clear to auscultation bilaterally, Normal air movement Cardiovascular: Regular rate/rhythm, Normal S1 S2 Gastrointestinal: Normal bowel sounds, No tenderness Musculoskeletal: No tenderness Integumentary: No rashes Neurological: Normal speech, Normal tone, Normal affect Lymphatics: No axilla or inguinal lymphadenopathy Laboratory Data at Discharge: WBC 9.70 K/uL (4.3-10.9) D 04/27/21 05:34 Hgb 11.0 g/dL (12.0-15.0) L 04/27/21 05:34 Hct 33.7 % (36.0-45.0) L 04/27/21 05:34 Plt Count 198 K/uL (152-406) 04/27/21 05:34 PT 10.5 SECONDS (9.5-12.5) 04/24/21 20:00 INR 0.91 04/24/21 20:00 Sodium 145 mmol/L (136-145) 04/27/21 05:24 Potassium 4.8 mmol/L (3.5-5.1) 04/27/21 05:24 BUN 20 mg/dL (7-18) H 04/27/21 05:24 Creatinine 1.23 mg/dL (0.55-1.3) 04/27/21 05:24 Glucose 95 mg/dL (74-106) 04/27/21 05:24 Magnesium 2.2 mg/dL (1.8-2.4) 04/24/21 20:00 Total Bilirubin 0.3 mg/dL (0.2-1.0) 04/27/21 05:24 AST 20 U/L (15-37) 04/27/21 05:24 ALT 16 U/L (12-78) 04/27/21 05:24 Alkaline Phosphatase 41 U/L (45-117) L 04/27/21 05:24 Troponin I 0.91 ng/mL (0.0-0.045) H* 04/25/21 09:53 Triglycerides 72 mg/dL (<150) 04/25/21 04:02 Cholesterol 124 mg/dL (<200) 04/25/21 04:02 HDL Cholesterol 54 mg/dL (40-60) 04/25/21 04:02 Cholesterol/HDL Ratio 2.30 04/25/21 04:02 Home Medications: Levothyroxine Sodium [Levoxyl] 50 mcg PO [id number] 11/08/18 Losartan Potassium 25 mg PO LUNCH 11/08/18 Metoprolol Tartrate [Lopressor*] 50 mg PO BID 11/08/18 Omeprazole 20 mg PO LUNCH 11/08/18 Raloxifene HCl [Evista*] 60 mg PO LUNCH 11/08/18 Topiramate [Topamax*] 25 mg PO BID 11/08/18 Tramadol HCl [Ultram] 50 mg PO BID PRN 11/08/18 levETIRAcetam [Keppra*] 500 mg PO BID #60 tab 04/27/21 New Medications: levETIRAcetam [Keppra*] 500 mg PO BID #60 tab Followup: Boogie Dove MD [ASSOCIATE-ACTIVE - CAN ADMIT] - (Call to schedule follow up appointment in 1 month.) Irwin Corbett MD [ACTIVE - CAN ADMIT] - (Call to schedule follow up appointment in 1-2 weeks)
--- NOTE | 2021-04-28 08:15 | EKG ---
Test Date: 2021-04-24 Test Time: 21:24:43 Loss Control Engineer: IVETH MEASUREMENT RESULTS: Intervals: Rate: 61 CO: 134 QRSD: 80 QT: 414 QTc: 416 Clint: P: 76 CO: 134 QRS: 19 T: 56 INTERPRETIVE STATEMENTS: Sinus rhythm with marked sinus arrhythmia Possible Left atrial enlargement Borderline ECG Compared to ECG 11/08/2018 16:09:10 No significant changes Electronically Signed On 04-28-21 08:04:35 TRAFFIC CONTROL SIGNALER by Km Mac
--- NOTE | 2021-04-28 16:00 | EEG ---
CHART: [id number] TEST ID#: [id number] DATE OF STUDY: 04/26/2021 THE EEG WAS RECORDED PORTABLE IN THE PATIENT'S ROOM ON A 17 CHANNEL MACHINE. ELECTRODES WERE APPLIED IN THE USUAL MANNER USING THE INTERNATIONAL 10-20 SYSTEM. THE WAKING BACKGROUND RHYTHM IN THIS RECORD CONSISTS OF WELL DEVELOPED AND WELL ORGANIZED WAVES OF 8.5-9 HZ., MAXIMAL IN THE POSTERIOR HEAD REGIONS WHICH ATTENUATE NORMALLY WITH EYE OPENING. LOW-VOLTAGE 18-22 HZ ACTIVITY IS EXPRESSED IN THE FRONTAL REGIONS. THERE ARE NO FOCAL OR LATERALIZING FEATURES. NO EPILEPTIFORM ACTIVITY APPEARS. SLEEP OCCURRED NATURALLY. IN ADDTION NORMAL SLEEP PATTERNS ARE PRESENT. HYPERVENTILATION WAS NOT PERFORMED. PHOTIC STIMULATION PRODUCED POOR DRIVING BILATERALLY. IMPRESSION: NORMAL EEG FOR THE AGE OF THE PATIENT IN [place], DROWSINESS AND SLEEP.
== END 2021-04-27 08:59 | disposition home or self-care (01) | DRG 101 ==
LOC: ER 18:11 → ERHOLD 22:00 → 2ND 04-25 13:50
PROVIDERS: ADMIT Internal Medicine; ATTEND Hospitalist
DX: G40.209 Localization-related (focal) (partial) symptomatic epilepsy and epileptic syndromes with complex partial seizures, not intractable, without status epilepticus (principal); I24.8 Other forms of acute ischemic heart disease; I10 Essential (primary) hypertension; N28.9 Disorder of kidney and ureter, unspecified; R41.3 Other amnesia; E03.9 Hypothyroidism, unspecified; K57.90 Diverticulosis of intestine, part unspecified, without perforation or abscess without bleeding; M81.0 Age-related osteoporosis without current pathological fracture; J44.9 Chronic obstructive pulmonary disease, unspecified; E78.5 Hyperlipidemia, unspecified; Z85.118 Personal history of other malignant neoplasm of bronchus and lung; Z20.822 Contact with and (suspected) exposure to COVID-19
CPT/HCPCS: 36415; 70450; 70544; 70551; 71045; 78452; 80048; 80053; 80061; 80076; 80307; 80320; 80329; 81003; 81015; 83735; 83880; 84439; 84443; 84484; 85025; 85610; 87086; 87088; 93005; 93017; 93306; 93880; 95819; 96372; 99285; A9500; J1650; J2405; J2785; J7030; U0003

== ENCOUNTER 2021-12-08 20:32 | Inpatient (IN) | payer OTHER ==
--- NOTE | 2021-12-08 21:18 | RAD REPORT ---
EXAM DESCRIPTION: RAD - Chest Single View - 12/08/2021 9:12 pm CLINICAL HISTORY: CHEST PAIN Chest pain. COMPARISON: Chest Single View dated 04/24/2021; Chest Pa And Lat (2 Views) dated 12/26/2019; Chest Pa And Lat (2 Views) dated 11/08/2018; Chest Pa And Lat (2 Views) dated 07/21/2016 FINDINGS: Portable technique limits examination quality. The lungs are mildly emphysematous but grossly clear. Chronic left pleural thickening suspected. The heart is normal in size. No displaced fractures.Aortic atherosclerosis. IMPRESSION: No acute intrathoracic process suspected.
--- NOTE | 2021-12-08 22:27 | EDPHYS ---
Physician Documentation [facility] Name: Falguni Marcelino Age: 81 yrs Sex: Female : 1940 Arrival Date: 12/08/2021 Time: 20:34 Bed 2 Private MD: Irwin Corbett V ED Physician Ishmael Pearce HPI: 12/08 21:19 This 81 yrs old Female presents to ER via Ambulatory with complaints of Chest Pain. rn 21:19 The patient or guardian reports chest pain that is located primarily in the chest rn diffusely. Onset: today. The pain radiates to the left arm. Associated signs and symptoms: Pertinent negatives: abdominal pain, cough, diaphoresis, syncope, vomiting. The chest pain is described as a heaviness. Duration: The patient or guardian reports multiple episodes, that are intermittent. Modifying factors: The symptoms are alleviated by nothing. the symptoms are aggravated by nothing. Severity of pain: At its worst the pain was moderate in the emergency department the pain has resolved. The patient has experienced a previous episode. The patient has not recently seen a physician. . Historical: - Allergies: 20:44 Codeine; ld1 20:44 Morphine; ld1 - Home Meds: 20:44 Metoprolol Tartrate Oral [Active]; losartan Oral [Active]; levothyroxine oral [Active]; ld1 - PMHx: 20:44 Hypertension; Hypothyroidism; Cancer; ld1 - PSHx: 20:44 Appendectomy; hysterectomy; ld1 - Immunization history:: Adult Immunizations up to date, Client reports receiving the 2nd dose of the Covid vaccine. - Social history:: Smoking status: Patient denies any tobacco usage or history of. Patient/guardian denies using alcohol. - Family history:: not pertinent. - Hospitalizations: : No recent hospitalization is reported. ROS: 21:19 Constitutional: Negative for fever, chills, and weight loss, Eyes: Negative for injury, rn pain, redness, and discharge, Neck: Negative for injury, pain, and swelling, Cardiovascular: Negative foredema Respiratory: Negative for cough, wheezing, and pleuritic chest pain Abdomen/GI: Negative for abdominal pain, nausea, vomiting, diarrhea, and constipation, Back: Negative for injury and pain, MS/Extremity: Negative for injury and deformity, Skin: Negative for injury, rash, and discoloration, Neuro: Negative for headache, weakness, numbness, tingling, and seizure. Exam: 21:19 Constitutional: This is a well developed, well nourished patient who is awake, alert, rn and in no acute distress. Head/Face: Normocephalic, atraumatic. Eyes: Periorbital areas with no swelling, redness, or edema. Cardiovascular: Regular rate and rhythm. No pulse deficits. Respiratory: No increased work of breathing, no retractions or nasal flaring. Abdomen/GI: Soft, non-tender Skin: Warm, dry MS/ Extremity: Pulses equal, no cyanosis. Neurovascular intact. Full, normal range of motion. Equal circumference. Neuro: Awake and alert, GCS 15, oriented to person, place, time, and situation. Vital Signs: 20:44 BP 164 / 77; Pulse 74; Resp 18; Temp 98.0(TE); Pulse Ox 97% on R/A; Weight 48.08 kg; ld1 Height 4 ft. 9 in. (144.78 cm); Pain 0/10; 22:40 BP 168 / 73; Pulse 66; Resp 18; Pulse Ox 100% ; kd3 23:14 BP 147 / 98; Pulse 98; Resp 20; Pulse Ox 100% on R/A; kd3 23:55 BP 145 / 66; Pulse 78; Resp 16; Pulse Ox 98% on R/A; kd3 20:44 Body Mass Index 22.94 (48.08 kg, 144.78 cm) ld1 MDM: 20:45 Patient medically screened. rn 22:11 Differential diagnosis: acute myocardial infarction, acute pericarditis, anxiety, rn coronary artery disease costochondritis, esophagitis, gastritis, gastroesophageal reflux disease (GERD), pericarditis, pleurisy, pneumothorax, stable angina, unstable angina. HEART Score: History: Highly Suspicious (2), ECG: Normal (0), Age: > or = 65 years (2), Risk Factors: 1 or 2 risk factors (1), Troponin: < or = 1 x Normal Limit (0), Total Score = 5. Data reviewed: vital signs, nurses notes, lab test result(s), EKG, radiologic studies, and as a result, I will admit patient. Counseling: I had a detailed discussion with the patient and/or guardian regarding: the historical points, exam findings, and any diagnostic results supporting the discharge/admit diagnosis, lab results, radiology results, the need for further work-up and treatment in the hospital. Admission orders: after a detailed discussion of the patient's condition and case, the admit orders are written by me. 22:24 The patient was given aspirin in the Emergency Department. rn 22:26 ED course: Consulted with Dr. Corbett, will admit to his service with cardiology consult. rn . 12/08 20:48 Order name: Basic Metabolic Panel; Complete Time: 23:38 rn 12/08 20:48 Order name: CBC with Diff; Complete Time: 23:38 rn 12/08 20:48 Order name: LFT's; Complete Time: 23:38 rn 12/08 20:48 Order name: NT PRO-BNP; Complete Time: 23:38 rn 12/08 20:48 Order name: Troponin HS; Complete Time: 23:38 rn 12/08 20:50 Order name: SARS-COV-2 RT PCR (Document "Date of Onset" if Symptomatic); Complete Time: rn :12/08 20:48 Order name: XRAY Chest (1 view); Complete Time: 22:08 rn 12/08 20:48 Order name: EKG; Complete Time: 20:49 rn 12/08 20:48 Order name: Cardiac monitoring; Complete Time: 22:39 rn 12/08 20:48 Order name: EKG - Nurse/Tech; Complete Time: 20:53 rn 12/08 20:48 Order name: IV Saline Lock; Complete Time: 22:39 rn 12/08 20:48 Order name: Labs collected and sent; Complete Time: 22:39 rn 12/08 20:48 Order name: O2 Per Protocol; Complete Time: 22:39 rn 12/08 20:48 Order name: O2 Sat Monitoring; Complete Time: 22:39 rn Administered Medications: 22:55 Not Given (Patient Refused): Aspirin Chewable Tablet 324 mg PO once; 81 mg tablets x 4 kd3 Disposition Summary: 12/08/21 22:26 Hospitalization Ordered Hospitalization Status: Observation rn Provider: Irwin Corbett rn [facility] rn Condition: Stable rn Problem: new rn Symptoms: have improved rn Bed/Room Type: Standard rn Room Assignment: 207(12/09/21 00:06) feliz Diagnosis - Chest pain, unspecified rn Forms: - Medication Reconciliation Form rn - SBAR form rn Signatures: Dispatcher [employer] Ishmael Stevenson MD MD rn Garcia, Cindy, RN RN cg Dibbern, Lauren, RN RN ld1 Franny Browning RN kd3 Corrections: (The following items were deleted from the chart) 12/09 00:06 12/08 22:26 rn feliz
--- NOTE | 2021-12-08 22:27 | ER ---
Nurse's Notes [facility] Name: Falguni Marcelino Age: 81 yrs Sex: Female : 1940 Arrival Date: 12/08/2021 Time: 20:34 Bed 2 Private MD: Irwin Corbett V Diagnosis: Chest pain, unspecified Presentation: 12/08 20:44 Chief complaint: Patient states: Two episodes of severe chest pain - last chest pain ld1 episode woke me up out of my sleep - I wasn't able to lay down because the pain was so bad. Upon arrival to ER pt denies chest pain. Last episode was 0030 last night. Coronavirus screen: At this time, the client does not indicate any symptoms associated with coronavirus-19. Ebola Screen: No symptoms or risks identified at this time. Initial Sepsis Screen: Does the patient meet any 2 criteria? No. Patient's initial sepsis screen is negative. Does the patient have a suspected source of infection? No. Patient's initial sepsis screen is negative. Risk Assessment: Do you want to hurt yourself or someone else? Patient reports no desire to harm self or others. Onset of symptoms was December 08, 2021. 20:44 Method Of Arrival: Ambulatory ld1 20:44 Acuity: BRYANT 3 ld1 Triage Assessment: 20:44 General: Appears in no apparent distress. comfortable, Behavior is calm, cooperative, ld1 appropriate for age. Pain: Complains of pain in chest Pain does not radiate. Pain currently is 0 out of 10 on a pain scale. at worst was 10 out of 10 on a pain scale. Quality of pain is described as throbbing. EENT: No signs and/or symptoms were reported regarding the EENT system. Neuro: Level of Consciousness is awake, alert, obeys commands, Oriented to person, place, time, situation. Cardiovascular: Capillary refill < 3 seconds Patient's skin is warm and dry. Rhythm is sinus rhythm. Respiratory: Airway is patent Respiratory effort is even, unlabored. GI: Abdomen is flat, non-distended. : No signs and/or symptoms were reported regarding the genitourinary system. Derm: No signs and/or symptoms reported regarding the dermatologic system. Musculoskeletal: Reports pain in chest. Historical: - Allergies: 20:44 Codeine; ld1 20:44 Morphine; ld1 - Home Meds: 20:44 Metoprolol Tartrate Oral [Active]; losartan Oral [Active]; levothyroxine oral [Active]; ld1 - PMHx: 20:44 Hypertension; Hypothyroidism; Cancer; ld1 - PSHx: 20:44 Appendectomy; hysterectomy; ld1 - Immunization history:: Adult Immunizations up to date, Client reports receiving the 2nd dose of the Covid vaccine. - Social history:: Smoking status: Patient denies any tobacco usage or history of. Patient/guardian denies using alcohol. - Family history:: not pertinent. - Hospitalizations: : No recent hospitalization is reported. Screenin:41 Abuse screen: Denies threats or abuse. Denies injuries from another. Nutritional kd3 screening: No deficits noted. 23:13 Tuberculosis screening: No symptoms or risk factors identified. Fall Risk IV access (20 kd3 points). Assessment: 22:40 General: Appears in no apparent distress. Behavior is calm, cooperative. Pain: Pain kd3 began suddenly. Neuro: Level of Consciousness is awake, alert, obeys commands, Oriented to person, place, time, situation. 23:13 Reassessment: Patient and/or family updated on plan of care and expected duration. Pain kd3 level reassessed. Patient is alert, oriented x 3, equal unlabored respirations, skin warm/dry/pink. General: Appears in no apparent distress. Behavior is calm, cooperative. Pain: Denies pain. Vital Signs: 20:44 BP 164 / 77; Pulse 74; Resp 18; Temp 98.0(TE); Pulse Ox 97% on R/A; Weight 48.08 kg; ld1 Height 4 ft. 9 in. (144.78 cm); Pain 0/10; 22:40 BP 168 / 73; Pulse 66; Resp 18; Pulse Ox 100% ; kd3 23:14 BP 147 / 98; Pulse 98; Resp 20; Pulse Ox 100% on R/A; kd3 23:55 BP 145 / 66; Pulse 78; Resp 16; Pulse Ox 98% on R/A; kd3 20:44 Body Mass Index 22.94 (48.08 kg, 144.78 cm) ld1 ED Course: 20:34 Patient arrived in ED. mr 20:34 Irwin Corbett MD is Private Physician. mr 20:44 Arm band placed on right wrist. EKG completed in triage. Results shown to MD. ld1 20:45 Ishmael Pearce MD is Attending Physician. rn 20:47 Triage completed. ld1 20:53 SARS-COV-2 RT PCR (Document "Date of Onset" if Symptomatic) Sent. ld1 20:55 SARS-COV-2 RT PCR (Document "Date of Onset" if Symptomatic) Sent. ld1 21:14 XRAY Chest (1 view) In Process Unspecified. EDMS 22:14 Franny Browning, RN is Primary Nurse. kd3 22:26 Irwin Corbett MD is Hospitalizing Provider. rn 23:12 No provider procedures requiring assistance completed. Inserted saline lock: 22 gauge kd3 in right antecubital area, using aseptic technique. Blood collected. Patient maintains SpO2 saturation greater than 95% on room air. 23:13 Client placed on continuous cardiac and pulse oximetry monitoring. NIBP monitoring kd3 applied. 23:13 Patient has correct armband on for positive identification. Placed in gown. Bed in low kd3 position. 12/09 00:17 Patient admitted, IV remains in place. kd3 Administered Medications: 12/08 22:55 Not Given (Patient Refused): Aspirin Chewable Tablet 324 mg PO once; 81 mg tablets x 4 kd3 Medication: 23:13 VIS not applicable for this client. kd3 Outcome: 22:26 Decision to Hospitalize by Provider. rn 12/09 00:16 Admitted to Med/surg accompanied by tech, room 207, Report called to 2nd floor charge kd3 Condition: stable Discharge instructions given to patient, family, Instructed on discharge instructions, Demonstrated understanding of instructions. 00:34 Patient left the ED. kd3 Signatures: Dispatcher [employer] [facility] Lyn Goodman Ishmael Pearce MD MD rn Dibbern, Lauren, RN RN ld1 Franny Browning, GERARD RN kd3
[2021-12-08] MEDS ORDERED: ASPIRIN 81 MG CHEWABLE TABLET ONE (22:52)
[2021-12-08 23:10] LABS: Absolute Lymphocytes (CBC) 1.9 K/uL (0.7-4.9); Hematocrit 36.6 % (36.0-45.0); Lymphocytes % 23.2 % (15.3-44.8); MCV 94.8 fL (80-100); MPV 9.5 fL (7.6-11.3); RBC Red Blood Cell Count 3.86 M/uL (3.86-4.86)
[2021-12-08 23:25] LABS: ALT/SGPT 24 U/L (12-78); AST/SGOT 22 U/L (15-37); Albumin 3.4 g/dL (3.4-5.0); Alkaline Phosphatase 53 U/L (45-117); BUN Blood Urea Nitrogen 24 mg/dL (7-18); Bicarbonate 28 mmol/L (21-32); Bilirubin Total 0.2 mg/dL (0.2-1.0); Glomerular Filtration Rate 32 ml/min (=/>90); Glucose Level 81 mg/dL (74-106); NT PRO-BNP 3042 pg/mL (<450); Potassium 4.4 mmol/L (3.5-5.1); Protein, Total 7.3 g/dL (6.4-8.2); Sodium Level 141 mmol/L (136-145); Troponin High Sensitivity 15.6 pg/mL (<58.9)
[2021-12-08 23:33] LABS: Bilirubin Direct < 0.1 mg/dL (0-0.2)
[2021-12-09] MEDS ORDERED: ONDANSETRON 4 MG/2 ML VIAL IV PRN (00:27)
[2021-12-09 01:30] VITALS: BMI 22.9
[2021-12-09] MEDS ORDERED: cloNIDine HCL 0.1 MG TAB PO PRN (01:42)
[2021-12-09] MEDS ORDERED: ACETAMINOPHEN 500 MG TAB PO PRN (01:48)
[2021-12-09 04:17] LABS: Absolute Lymphocytes (CBC) 1.9 K/uL (0.7-4.9); Hematocrit 32.4 % (36.0-45.0); Lymphocytes % 25.2 % (15.3-44.8); MPV 9.5 fL (7.6-11.3); RBC Red Blood Cell Count 3.52 M/uL (3.86-4.86)
[2021-12-09 04:34] LABS: Potassium 3.9 mmol/L (3.5-5.1)
[2021-12-09 11:50] LABS: Protime INR 0.95
--- NOTE | 2021-12-09 13:50 | EKG ---
Test Date: 2021-12-09 Test Time: 07:14:06 Streaming Media Specialist: SHAKIR MEASUREMENT RESULTS: Intervals: Rate: 68 AR: 130 QRSD: 82 QT: 444 QTc: 472 [place]: P: 88 AR: 130 QRS: 69 T: 73 INTERPRETIVE STATEMENTS: Sinus rhythm with marked sinus arrhythmia Otherwise normal ECG Compared to ECG 12/08/2021 20:38:33 Ventricular premature complex(es) no longer present Electronically Signed On 12-09-21 13:50:09 CDT by Dae Weaver
--- NOTE | 2021-12-09 13:52 | EKG ---
Test Date: 2021-12-08 Test Time: 20:38:33 Manager Data: SHANNAN MEASUREMENT RESULTS: Intervals: Rate: 72 TN: 130 QRSD: 68 QT: 396 QTc: 433 [place]: P: 81 TN: 130 QRS: 45 T: 55 INTERPRETIVE STATEMENTS: Sinus rhythm with marked sinus arrhythmia with occasional premature ventricular complexes Possible Left atrial enlargement Borderline ECG Compared to ECG 04/24/2021 21:24:43 Ventricular premature complex(es) now present Electronically Signed On 12-09-21 13:50:45 CDT by Dae Weaver
[2021-12-09] MEDS ORDERED: TRAMADOL HCL 50 MG TAB PO PRN (16:49)
[2021-12-09] MEDS ORDERED: ENOXAPARIN 30 MG/0.3 ML SQ SCH (17:00)
[2021-12-09] MEDS: TOPIRAMATE 25 MG TAB PO SCH (20:46)
[2021-12-09] MEDS: METOPROLOL TAR 50 MG TAB PO SCH (20:46)
--- NOTE | 2021-12-09 21:10 | P.SSS ---
Patient History Date of Service: 12/09/21 Reason for admission: CHEST PAIN History of Present Illness: ELHAM HAS BOTH ARM PAIN AND CHEST PAIN WITH PALPITATTIONS TWO TIMES IN LAST 20 DAYS. SHE DID NOT TELL THE FAMILY. DAUGHTER FOUND HER TO BE PALE AND FATIGUED SO SHE BROUGHT HER TO ER. EKG IS NORMAL AND CE ARE NEGATIVE SO FAR. Allergies codeine Allergy (Mild, Verified 08/06/13 16:03) hyperactivity morphine Allergy (Verified 08/06/13 16:03) swelling to extremities Home medications list reviewed: Yes Home Medications: Losartan Potassium 25 mg PO LUNCH 11/08/18 Metoprolol Tartrate [Lopressor*] 50 mg PO BID 11/08/18 Omeprazole 20 mg PO LUNCH 11/08/18 Topiramate [Topamax*] 25 mg PO BID 11/08/18 Tramadol HCl [Ultram] 50 mg PO BID PRN 11/08/18 Levothyroxine [Synthroid*] 50 mcg PO [id number] 12/09/21 - Past Medical/Surgical History Has patient received pneumonia vaccine in the past: Yes Diabetic: No -: HTN -: Hypothyroidism -: Osteoporosis -: Lung Cancer -: Diverticulitis -: Appendectomy -: Left Lower Lobectomy -: Hysterectomy -: pessary insertion -: cholecystectomy -: perforated colon sx - Family History Father -: Cancer Notes: lung cancer Mother -: Lung disease, Diabetes Notes: asthma Sister -: Cancer - Social History Smoking Status: Former smoker Alcohol use: No CD- Drugs: No Caffeine use: Yes Place of Residence: Home Review of Systems 10-point ROS is otherwise unremarkable General: Weakness, Malaise Respiratory: Shortness of Breath Physical Examination - Vital Signs Temperature: 97.9 F Blood Pressure: 146/81 Pulse: 67 Respirations: 17 Pulse Ox (%): 95 - Physical Exam General: Mild distress HEENT: Atraumatic, PERRLA, Mucous membr. moist/pink, EOMI, Sclerae nonicteric Neck: Supple, 2+ carotid pulse no bruit, No LAD, Without JVD or thyroid abnormality Respiratory: Clear to auscultation bilaterally, Normal air movement Cardiovascular: Regular rate/rhythm, Normal S1 S2 Gastrointestinal: Normal bowel sounds, No tenderness Musculoskeletal: No tenderness Integumentary: No rashes Neurological: Normal gait, Normal speech, Normal strength at 5/5 x4 extr, Normal tone, Normal affect Lymphatics: No axilla or inguinal lymphadenopathy - Studies Laboratory Data (last 24 hrs) 12/09/21 11:30: PT 10.4, INR 0.95, APTT 29.5 12/09/21 03:21: Sodium 140, Potassium 3.9, BUN 24 H, Creatinine 1.34 H, Glucose 99 12/09/21 03:21: WBC 7.4, Hgb 11.2 L, Hct 32.4 L, Plt Count 253 12/08/21 22:32: WBC 8.1, Hgb 12.2, Hct 36.6, Plt Count 289 12/08/21 22:32: Sodium 141, Potassium 4.4, BUN 24 H, Creatinine 1.58 H, Glucose 81, Total Bilirubin 0.2, AST 22, ALT 24, Alkaline Phosphatase 53 - Diagnosis (Problem(s)) (1) Chest pain Current Visit: Yes Status: Acute Plan: CHEST PAIN CAN BE CARDIAC IN ORIGIN. AGE AND HTN ARE RISK FACTORS. ST TEST WAS NEGATIVE 6 MONTHS AGO. [facility] IS AWARE THAT CATH CAN AFFECT HER KIDNEYS THAT ARE BORDERLINE ALREADY. (2) Palpitation Current Visit: Yes Status: Acute Plan: A FIB, SVT OR V TACH CAN GIVE RISE TO PAIN ALSO. SO FAR TELEMETRY IS NOT PICKING UP ANY ARRHYTHMIA. DW FAMILY IN DETAIL. - Disposition Disposition: ROUTINE DISCHARGE
[2021-12-10] MEDS: METOPROLOL TAR 50 MG TAB PO SCH (05:43)
[2021-12-10] MEDS ORDERED: LEVOTHYROXINE SOD 0.05 MG TABLET PO SCH ×2 (06:00→06:30)
[2021-12-10] MEDS ORDERED: PANTOPRAZOLE 40MG TABLET PO SCH (06:30)
[2021-12-10] MEDS ORDERED: FENTANYL CITR 100 MCG/2 ML ONE (06:41)
[2021-12-10] MEDS ORDERED: HEPARIN 5000 UNIT/ML 1 ML VIAL ONE (06:41)
[2021-12-10] MEDS ORDERED: LIDOCAINE 1% 20 ML MDV ONE ×2 (06:41→11:23)
[2021-12-10] MEDS ORDERED: VERAPAMIL HCL 10 MG/4 ML VIAL IV ONE (06:41)
[2021-12-10] MEDS ORDERED: HEPA 1000U/500MLS 2,000 UNIT/1,000 ML BAG IV ONE (06:41)
[2021-12-10] MEDS ORDERED: MIDAZOLAM HCL 2 MG/2 ML INJ ONE (06:41)
[2021-12-10] MEDS ORDERED: HEPARIN 10,000 UNIT/10 ML VIAL IV ONE (06:42)
[2021-12-10] MEDS: TOPIRAMATE 25 MG TAB PO SCH (08:07)
[2021-12-10] MEDS ORDERED: NA CHLORIDE 0.9% 500 ML ONE (11:22)
[2021-12-10] MEDS ORDERED: LOSARTAN POTASSIUM 50 MG TABLET PO SCH (12:00)
[2021-12-10 13:09] VITALS: TEMP 98.1
[2021-12-10] MEDS ORDERED: ATROPINE SULF 1 MG/10 ML SYR IV ONE (13:35)
[2021-12-10] MEDS ORDERED: ASPIRIN 325 MG TAB ONE (14:17)
[2021-12-10] MEDS ORDERED: CLOPIDOGREL 75 MG TABLET ONE (14:17)
[2021-12-10] MEDS ORDERED: HYDRALAZINE HCL 20 MG/ML VIAL ONE (14:25)
[2021-12-10] MEDS ORDERED: ACETAMINOPHEN 325 MG TABLET ONE (15:06)
[2021-12-10] MEDS ORDERED: ONDANSETRON 4 MG/2 ML VIAL ONE (15:11)
[2021-12-10 17:38] VITALS: BP 101/45; O2SAT 98
--- NOTE | 2021-12-10 20:49 | PN ---
Date of Progress Note: 12/10/2021 Subjective: Patient was seen by bedside. She is doing clinically well. She had a chest pain episod e last night. It was severe and resolved on its own. Her troponins remained to be negative. Review of Systems: At the present time, there is no chest pain, shortness of breath, orthopnea, cough, nausea, vomiting, or diarrhea. All other systems reviewed are negative. Physical Examination: Vital Signs: Reviewed. Head and Neck: Pupils are equal, reactive to light. Intact eye movements. No JVD. No cervical lym phadenopathy. Neck is supple. Thyroid is not enlarged. Lungs: Clear to auscultation bilaterally. No rhonchi, rales, or crackles. No accessory muscle use. Heart: Regular rate and rhythm. No extra sounds. Abdomen: Soft, nontender. Bowel sounds positive. No organomegaly. No masses or hernia. No rigidi ty or rebound. Extremities: No clubbing or cyanosis. Intact pulses. Skin: No rashes. Neurologic: Alert, awake, oriented x3. No acute events appreciated. Investigations: Her labs showed a troponin 3 times negative. Creatinine 1.34 and hemoglobin 11.2. Assessment And Recommendation: 1.Chest pain, that is significant. Took the patient to the cardiac catheterization laboratory today . Did a coronary angiogram and she has severe right coronary artery disease that you could not inter vene upon due to heavy calcification and tortuosity and there is a moderate disease of the left anter ior descending, and at this point, since troponins are negative and the echo showed normal ejection f raction, this patient can be released home and I will plan to take her as an outpatient [facility] in [place] and we will plan for CSI atherectomy of the right coronary artery, heavily calcified, severely stenosed vessel and followed by percutaneous coronary i ntervention. Patient can be discharged home on aspirin and Plavix and high-dose statin. Also, a bet a-vicky. 2.Hypertension. Blood pressure is controlled. Continue home medications. SR/MODL Voice ID: [id number] Report ID: [id number]
--- NOTE | 2021-12-11 01:08 | OP ---
Date of Procedure: 12/10/2021 Surgeon: ISRAEL MAXWELL Procedures Performed: 1.Selective coronary angiogram. 2.Left heart catheterization. 3.Failed attempt of percutaneous coronary intervention of the right coronary artery. Indication: Unstable angina. Access: Right radial artery 6-Lao, closed with TR band. Complications: None. Bleeding: Less than 10 mL. Total Sedation Time: 45 minutes, used fentanyl and Versed. Description Of Procedure: After risks, benefits, and alternatives were explained, the patient agreed to the procedure and signed informed consent. The patient was brought into cardiac catheterization laboratory, prepped and draped in usual sterile fashion. Then, we accessed right radial artery using pediatric micropuncture kit, placed 6-Lao slender sheath, and took 5-Lao [place] 4.0 catheter in the aortic root, engaged left main and right coronary artery, took standard views, and advanced the catheter over the wire into the LV, measured LVEDP on pullback and not recorded gradient. Then gave systemic heparin and loaded with Plavix and aspirin and exchanged for a 6-Lao JR4 guide that was i n the aortic root, engaged the RCA, took a Runthrough wire throughout the RCA, however, could not adv ance it due to heavily calcified lesions and I could not deliver any balloons. So, the procedure was aborted and planned for atherectomy followed by PCI to be done in [place]. Then, I removed the cath eter and the sheath and placed TR band with good hemostasis. Findings: 1.Left main is normal. 2.LAD: It is a moderate-sized vessel with diffuse 60% heavily calcified stenosis in the midportion in the very long segment. Diagonal branches are with luminal irregularities. 3.Left circumflex has a 40% mid left circumflex stenosis and the OM1 branch has also proximal 40% to 50%. 4.RCA is a large and dominant artery with proximal to mid 80% heavily calcified stenosis, then follo wed by a longer lesion of 90% that is heavily calcified, and then it bifurcates to PDA and PLB, and t he PLD has an ostial 80% stenosis. The PDA had 2 or 3 lesions and there were about 60% each. 5.Normal LVEDP at 10 mmHg. Conclusion: 1.Severe coronary artery disease involving the RCA, heavily calcified, failed attempt to PCI due to the calcifications. 2.Moderate coronary artery disease elsewhere. 3.Normal LVEDP. Plan: I arranged as an outpatient for CSI atherectomy of the RCA and FFR of the LAD, will be done in [place] early next week. /KATHI Voice ID: [id number] Report ID: [id number]
--- NOTE | 2021-12-14 12:49 | CON ---
Date of Consultation: 12/09/2021 Reason For Consultation: Unstable angina. History Of Present Illness: Mrs. Marcelino was admitted to Dr. Corbett. Mrs. Marcelino is an 81-year-old fema le with history of hypertension, hypothyroidism. She takes metoprolol, losartan, and Synthroid at [facility]. She came in with substernal chest pain, radiating to the left arm with some nausea and shortness of breath. Denied PND, orthopnea, palpitations, or syncope. The patient was describing the pain as being exertional. She denied any palpitation, fever, or syncope. She was hypertensive at 168/73 wh en she came into the emergency room. She had an EKG that showed sinus rhythm with marked sinus arrhy thmia and occasional PVCs. Her chest x-ray was negative. Allergies: INCLUDE CODEINE AND MORPHINE. Review of Systems: Negative. Social History: Negative. Family History: Noncontributory. Physical Examination: Vital Signs: Stable, afebrile. HEENT: Negative. Neck: Supple with no bruit. Chest: Clear to auscultation and percussion. Cardiac: Revealed a regular rhythm and rate. No murmurs, gallops, or rubs. Abdomen: Benign. Extremities: Revealed no clubbing, cyanosis, or edema. Diagnostic Data: As stated earlier. Also include a creatinine of 1.34. She was on heparin with juan m vated ACT. Her BNP was 3042. Impression And Plan: Symptoms consistent with unstable angina in a patient with hypertension, abnorm al EKG. I am more comfortable with her going to a catheterization to define her coronary anatomy. T he case was discussed with Dr. Corbett and the patient and the patient's family. We will see what the catheterization shows before making any further decisions. Continue present regimen for now. The pa al should probably be on a baby aspirin and a statin in addition to her present regimen. KYLE/MODL Voice ID: [id number] Report ID: [id number]
--- OUTSIDE RECORDS SUMMARY | 2021-12-22 16:08 | XMS REPORT | Continuity of Care Document ---
:1940 Author Organization [facility] t Address [address] [place] [address] Care Team Providers Name Role Phone MATT Primary Care Physician Unavailable Aldeiri Attending Clinician Unavailable GC_SWHAWPRC_Lotze_P Attending Clinician Unavailable Shari Sánchez Attending Clinician [phone] RADIOLOGY Attending Clinician Unavailable BENJAMIN Attending Clinician Unavailable Radiology Attending Clinician Unavailable Doctor Unassigned, Name Attending Clinician Unavailable Polo RN, T Attending Clinician Unavailable Lab, Fam Pob I Attending Clinician Unavailable ANENE Attending Clinician Unavailable Provider, Urgent Care Attending Clinician Unavailable EBRAHIM Attending Clinician Unavailable Aldeiri Admitting Clinician Unavailable GC_SWHAWPRC_Lotze_P Admitting Clinician Unavailable MATT Admitting Clinician Unavailable Payers Payer Name Policy Type Policy Number Effective Date Expiration Date S wenceslao MEDICARE PART A [id number] 2004 \T\ B 00:00:00 MEDICARE [place]: [id number] 2004 [employer] 00:00:00 Problems This patient has no known problems. Allergies, Adverse Reactions, Alerts Allergy Allergy Status Severity Reaction(s) Onset Inactive Treating Comm ents Source Name Type Date Date Clinician morphine DA Active SV RASH 2021-0 [facility] 7-12 Clear 00:00: Cast[place] 00 [facility] MORPHINE DRUG Active Unknown-Cmnt Un aurora INGREDI 07 ity of 00:00: 00 [facility] Medications This patient has no known medications. Procedures This patient has no known procedures. Encounters Start End Encounter Admission Attending Care Care Encounter Source Date/Time Date/Time Type Type Clinicians Facility Department ID 2021-04-05 Emergency [facility] [id number] Univers 06:18:[address] [facility] 2021-04-04 Emergency [facility] [id number] Univers 11:05:[address] [facility] 2021-12-15 2021-12-16 Inpatient LANDRY Corbin HCACL INTE.02 [id number] [facility] 05:13:00 16:08:00 [facility] 19 [facility] 2021-12-15 2021-12-15 Inpatient LANDRY Corbin HCACL INTE.02 [id number] [facility] 05:13:00 05:12:00 [facility] [id number] [facility] 2021-10-05 2021-10-05 Outpatient GC_SWHAWPRC PRIV PRIV [id number] [facility] 05:51:00 05:51:00 _Lotze_P [id number] Medic al 2021-10-01 2021-10-01 Outpatient GC_SWHAWPRC PRIV PRIV [id number] [facility] 10:31:00 10:31:00 _Lotze_P [id number] Medic al 2021-10-01 2021-10-01 Outpatient Sánchez, PRIV PRIV [id number] 502-[id number] 00:00:00 00:00:00 Bhavanajavier Mccarthy [id number] 2021-09-30 2021-09-30 Outpatient GC_[facility] PRIV PRIV [id number] [facility] 05:55:00 05:55:00 _Lotze_P [id number] Medic al 2021-06-04 2021-06-04 Outpatient R RADIOLOGY [facility] [id number] Univers 09:51:24 23:59:[address] [facility] 2021-06-04 2021-06-04 Outpatient R RADIOLOGY [facility] [id number] Univers 00:00:00 00:00:[id number] [place] [address] 2021-05-25 2021-05-25 Outpatient BENJAMIN, [facility] [id number] [place] 00:00:00 00:00:00 ARLETTE Zhang[address] [facility] 2020-06-04 2020-06-04 Hospital Radiology [facility] [id number] 13:21:40 23:59:00 Encounter [place] 350.1.13.10 [place] 4.2.7.2.686 [place] [id number] 2020-06-04 2020-06-04 Outpatient R RADIOLOGY [facility] [id number] Univers 13:40:00 13:40:00 [id number] [facility] 2020-06-04 2020-06-04 Outpatient R RADIOLOGY [facility] [id number] [facility] 00:00:00 00:00:00 [facility] 2020-06-04 2020-06-04 Orders Doctor SHARLA [id number] 00:00:00 00:00:00 Only Unassigned, [place] 350.1.13.10 [place] [facility] 4.2.7.2.686 [id number] 2020-02-06 2020-02-06 Letter SHARLA Cuellar [id number] 00:00:00 00:00:00 (Out) Jenni ARNOLD 350.1.13.10 [facility] 4.2.7.2.686 [id number] 2020-02-04 2020-02-04 Laboratory Lab, [facility] 1.2.840.114 [id number] 14:50:37 15:10:37 Only [facility]am P[facility] Health 350.1.13.10 [place] 4.2.7.2.686 Professio [id number] nal 044 [address] 2020-02-04 2020-02-04 Outpatient R [facility] [id number] Univers 15:00:00 15:00:00 [facility] 2020-02-04 2020-02-04 Outpatient R SARAI, [facility] [id number] Univers 15:00:00 15:00:00 BENY [facility] 2020-01-04 2020-01-04 Urgent Provider, [facility] [id number] 14:17:46 15:24:42 Care [facility] [id number] Care [place] 4.2.7.2.686 Gab [id number] nal 0[address] 2020-01-04 2020-01-04 Outpatient R [facility] [id number] -[id number] Univers 14:20:00 14:20:00 [facility] 2020-01-04 2020-01-04 Outpatient R VERA, [facility] [id number] Univers 14:20:00 14:20:00 DEMOND [facility] 2019-06-03 2019-06-03 Outpatient R RADIOLOGY [facility] [id number] [facility] 09:04:21 23:59:00 [facility] Results Test Description Test Time Test Comments Results Result Comments Source LIPID PROFILE (CORONARY RISK) 2021-12-16 08:02:00 Test Item Value Reference Range Interpretation Comme nts TRIGLYCERIDES (test code = 131 mg/dL 40-150 N TRIG) CHOLESTEROL (test code = 160 mg/dL <200 CHOL) CHOLESTEROL/HDL RATIO (test 3.94 RATIO 3.27-4.44 N RISK ASSOCIATED WITH CHOL/HDL code = CHOLHDL) RATIOS: RI SK MALE FEMALE1/2 A VERAGE 3.43 3.2 7AVERAGE 4.97 4 .442X AVERAGE 9.55 7.053X AVERAGE 23.39 11.04 NOTE THAT THE REFERENCE V ALUE IS RELATEDTO RISK LEVELS RECOMMENDED BY THE NATL.HEART, LUNG, AND BLOOD INST. HDL CHOLESTEROL (test code = 40.6 mg/dL 39-96 N HDL) LIPOPROTEIN LDL (test code = 117.6 mg/dL 0-100 H <100 [id number] NEAR LDL) OPTIMAL/ABOVE O [id number] 89 HIGH>MG=255 VERY HIGH*Guide lines provided by the National olesterol EducationProgra m Adult Treatment Panel III BASIC METABOLIC [id number] 16:55:00 Test Item Value Reference Range Interpretation Comments SODIUM (test code = NA) 137 mEq/L 134-147 N POTASSIUM (test code = 4.2 mEq/L 3.4-5.0 N K) CHLORIDE (test code = 108 mEq/L 100-108 N CL) CARBON DIOXIDE (test 22 mEq/l 21-33 N code = CO2) ANION GAP (test code = 11 0-20 N GAP) GLUCOSE (test code = 103 mg/dL 70-110 N GLU) BLOOD UREA NITROGEN 22 mg/dL 7-18 H (test code = BUN) GLOMERULAR FILTRATION 43.0 70-80 L Units of measure = RATE (test code = GFR) ml/mi n/1.73 m2 CREATININE (test code = 1.2 mg/dL 0.6-1.3 N CREAT) CALCIUM (test code = 8.5 mg/dL 8.0-10.5 N CA) CBC W/AUTO [id number] 16:40:00 Test Item Value Reference Range Interpretation Comments WHITE BLOOD CELL (test code = 9.0 x10 3/uL 4.5-11.0 N WBC) RED BLOOD CELL (test code = 3.31 x10 6/uL 3.54-5.02 L RBC) HEMOGLOBIN (test code = HGB) 10.5 g/dL 11.0-15.0 L HEMATOCRIT (test code = HCT) 30.6 % 33.0-45.0 L MEAN CELL VOLUME (test code = 92.4 fL 81.0-99.0 MCV) MEAN CELL HGB (test code = MCH) 31.7 pg 27.0-33.0 N MEAN CELL HGB CONCETRATION 34.3 g/dL 33.0-37.0 N (test code = MCHC) RED CELL DISTRIBUTION WIDTH CV 13.4 % 11.5-14.5 N (test code = RDW) RED CELL DISTRIBUTION WIDTH SD 45.9 fL 37.0-54.0 N (test code = RDW-SD) PLATELET COUNT (test code = 296 x10 3/uL 150-400 N PLT) MEAN PLATELET VOLUME (test code 11.5 fL 7.0-9.0 H = MPV) NEUTROPHIL % (test code = NT%) 71.2 % 56.0-77.0 N IMMATURE GRANULOCYTE % (test 0.3 % 0.0-2.0 N code = IG%) LYMPHOCYTE % (test code = LY%) 17.6 % 14.0-32.0 N MONOCYTE % (test code = MO%) 7.6 % 4.8-9.0 N EOSINOPHIL % (test code = EO%) 2.1 % 0.3-3.7 N BASOPHIL % (test code = BA%) 1.2 % 0.0-2.0 N NUCLEATED RBC % (test code = 0.0 % 0-0 N NRBC%) NEUTROPHIL # (test code = NT#) 6.40 x10 3/uL 2.0-7.6 N IMMATURE GRANULOCYTE # (test 0.03 x10 3/uL 0.00-0.03 N code = IG#) LYMPHOCYTE # (test code = LY#) 1.58 x10 3/uL 1.0-3.8 N MONOCYTE # (test code = MO#) 0.68 x10 3/uL 0.1-0.8 N EOSINOPHIL # (test code = EO#) 0.19 x10 3/uL 0.0-0.2 N BASOPHIL # (test code = BA#) 0.11 x10 3/uL 0.0-0.2 N NUCLEATED RBC # (test code = 0.00 x10 3/uL 0.0-0.1 N NRBC#) MANUAL DIFF REQUIRED (test code NO = MDIFF) [id number] 16:39:00 Test Item Value Reference Range Interpretation Comments ACT-ISTAT (test code 231 SEC 74-137 H Perform ed by certified = ACTI) 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 [facility] [id number] 14:20:00 Test Item Value Reference Range Interpretation Comments ACT-ISTAT (test code 288 SEC 74-137 H Perform ed by certified = ACTI) 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 [facility] [id number] 13:59:00 Test Item Value Reference Range Interpretation Comments ACT-ISTAT (test code 306 SEC 74-137 H Perform ed by certified = ACTI) 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 [facility] [id number] 13:45:00 Test Item Value Reference Range Interpretation Comments ACT-ISTAT (test code 260 SEC 74-137 H Perform ed by certified = ACTI) 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 [facility] [id number] 13:45:00 Test Item Value Reference Range Interpretation Comments ACT-ISTAT (test code 254 SEC 74-137 H Perform ed by certified = ACTI) 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 [facility] BASIC METABOLIC [id number] 13:46:00 Test Item Value Reference Range Interpretation Comments SODIUM (test code = NA) 140 mEq/L 134-147 N POTASSIUM (test code = 4.8 mEq/L 3.4-5.0 N K) CHLORIDE (test code = 109 mEq/L 100-108 H CL) CARBON DIOXIDE (test 28 mEq/l 21-33 N code = CO2) ANION GAP (test code = 7 0-20 N GAP) GLUCOSE (test code = 104 mg/dL 70-110 N GLU) BLOOD UREA NITROGEN 25 mg/dL 7-18 H (test code = BUN) GLOMERULAR FILTRATION 36.0 70-80 L Units of measure = RATE (test code = GFR) ml/mi n/1.73 m2 CREATININE (test code = 1.4 mg/dL 0.6-1.3 H CREAT) CALCIUM (test code = 9.2 mg/dL 8.0-10.5 N CA) PROTHROMBIN [id number] 13:36:00 Test Item Value Reference Range Interpretation Comments PROTHROMBIN TIME 10.6 SECONDS 9.3-12.9 N PATIENT (test code = PTP) INTERNATIONAL NORMAL 1.0 0.8-1.2 N TARGET RATIO (test code = INR BY IN DICATION INR) Indication INR1. Prophyl axis of venous thrombos is 2.0 - 3. 0 (orthopedic leandro connor), Prophylaxis of venous thrombos is (other than hig h-risk surgery), Sumi tment of Deep Vein Thrombosis/Pulm onary Embolism, Preve ntion of systemic emb olism - Tissue heart va lves, Acute Myocardia l Infarction (to prevent systemic embo lism), Valvular heart disease, Atri al Fibrillation, Bileaflet mecha nical valve in aortic position.2. Mec hanical prosthetic valv es (high risk), 2.5 - 3.5 Presence of Lupus Anticoagu lant or Antiphospholi pid Antibodies, Pre vention of systemic e mbolism - Acute Myocard ial Infarction (t o prevent recurre nt infarct). CBC W/AUTO [id number] 13:34:00 Test Item Value Reference Range Interpretation Comments WHITE BLOOD CELL (test code = 9.2 x10 3/uL 4.5-11.0 N WBC) RED BLOOD CELL (test code = 3.62 x10 6/uL 3.54-5.02 N RBC) HEMOGLOBIN (test code = HGB) 11.7 g/dL 11.0-15.0 N HEMATOCRIT (test code = HCT) 34.6 % 33.0-45.0 N MEAN CELL VOLUME (test code = 95.6 fL 81.0-99.0 N MCV) MEAN CELL HGB (test code = MCH) 32.3 pg 27.0-33.0 N MEAN CELL HGB CONCETRATION 33.8 g/dL 33.0-37.0 N (test code = MCHC) RED CELL DISTRIBUTION WIDTH CV 13.7 % 11.5-14.5 N (test code = RDW) RED CELL DISTRIBUTION WIDTH SD 48.0 fL 37.0-54.0 N (test code = RDW-SD) PLATELET COUNT (test code = 334 x10 3/uL 150-400 N PLT) MEAN PLATELET VOLUME (test code 12.0 fL 7.0-9.0 H = MPV) NEUTROPHIL % (test code = NT%) 67.0 % 56.0-77.0 N IMMATURE GRANULOCYTE % (test 0.4 % 0.0-2.0 N code = IG%) LYMPHOCYTE % (test code = LY%) 20.2 % 14.0-32.0 N MONOCYTE % (test code = MO%) 7.2 % 4.8-9.0 N EOSINOPHIL % (test code = EO%) 3.8 % 0.3-3.7 H BASOPHIL % (test code = BA%) 1.4 % 0.0-2.0 N NUCLEATED RBC % (test code = 0.0 % 0-0 N NRBC%) NEUTROPHIL # (test code = NT#) 6.18 x10 3/uL 2.0-7.6 N IMMATURE GRANULOCYTE # (test 0.04 x10 3/uL 0.00-0.03 H code = IG#) LYMPHOCYTE # (test code = LY#) 1.86 x10 3/uL 1.0-3.8 N MONOCYTE # (test code = MO#) 0.66 x10 3/uL 0.1-0.8 N EOSINOPHIL # (test code = EO#) 0.35 x10 3/uL 0.0-0.2 H BASOPHIL # (test code = BA#) 0.13 x10 3/uL 0.0-0.2 N NUCLEATED RBC # (test code = 0.00 x10 3/uL 0.0-0.1 N NRBC#) MANUAL DIFF REQUIRED (test code NO = MDIFF)
== END 2021-12-10 18:49 | disposition home or self-care (01) | DRG 287 ==
LOC: ER 20:32 → ERHOLD 23:52 → 2ND 12-09 00:24 → OBSVTOIN 12-09 20:34
PROVIDERS: ADMIT Internal Medicine; ATTEND Internal Medicine
PROC: 4A023N7 Measurement of Cardiac Sampling and Pressure, Left Heart, Percutaneous Approach (ICD-10-PCS; principal; 2021-12-10)
PROC: B2011ZZ Plain Radiography of Multiple Coronary Arteries using Low Osmolar Contrast (ICD-10-PCS; 2021-12-10)
PROC: B2051ZZ Plain Radiography of Left Heart using Low Osmolar Contrast (ICD-10-PCS; 2021-12-10)
DX: I25.110 Atherosclerotic heart disease of native coronary artery with unstable angina pectoris (principal); I10 Essential (primary) hypertension; R00.2 Palpitations; E03.9 Hypothyroidism, unspecified; M81.0 Age-related osteoporosis without current pathological fracture; Z20.822 Contact with and (suspected) exposure to COVID-19; Z79.899 Other long term (current) drug therapy; Z88.5 Allergy status to narcotic agent; Z87.891 Personal history of nicotine dependence; Z87.19 Personal history of other diseases of the digestive system; Z85.118 Personal history of other malignant neoplasm of bronchus and lung; Z90.2 Acquired absence of lung [part of]; Z90.49 Acquired absence of other specified parts of digestive tract; Z90.710 Acquired absence of both cervix and uterus; Z82.49 Family history of ischemic heart disease and other diseases of the circulatory system; Z80.1 Family history of malignant neoplasm of trachea, bronchus and lung; Z83.3 Family history of diabetes mellitus; Z82.5 Family history of asthma and other chronic lower respiratory diseases
CPT/HCPCS: 36415; 71045; 80048; 80076; 83880; 84484; 85025; 85347; 85610; 85730; 93005; 93458; 99285; C1893; G0378; J0360; J1644; J2250; J2405; J3010; J7040; Q9966; U0003

== ENCOUNTER 2021-12-21 17:08 | Emergency (ER) | payer OTHER ==
[2021-12-21 18:56] LABS: Urine Bacteria >50 /HPF (<20); Urine Mucus 1+ /HPF (None Seen)
[2021-12-21] MEDS ORDERED: BEBTELOVIMAB 175 MG/2 ML VIAL IV ONE (19:16)
[2021-12-21 19:17] LABS: Absolute Lymphocytes (CBC) 1.6 K/uL (0.7-4.9); Hematocrit 29.3 % (36.0-45.0); Lymphocytes % 17.6 % (15.3-44.8); MCV 92.2 fL (80-100); MPV 9.7 fL (7.6-11.3); RBC Red Blood Cell Count 3.18 M/uL (3.86-4.86)
[2021-12-21 19:21] LABS: Protime INR 0.96
[2021-12-21 19:40] LABS: Albumin 3.3 g/dL (3.4-5.0); Bilirubin Direct 0.1 mg/dL (0-0.2); Bilirubin Total 0.4 mg/dL (0.2-1.0); C-Reactive Protein 10.2 mg/L (<3.00); Potassium 4.3 mmol/L (3.5-5.1); Protein, Total 7.2 g/dL (6.4-8.2)
--- NOTE | 2021-12-21 19:53 | RAD REPORT ---
EXAM DESCRIPTION: RAD - Chest Single View - 12/21/2021 7:14 pm CLINICAL HISTORY: COUGH COMPARISON: Chest Single View dated 12/08/2021; Chest Single View dated 04/24/2021; Chest Pa And Lat ( 2 Views) dated 12/26/2019; Chest Pa And Lat (2 Views) dated 11/08/2018; Thorax Wo Con dated 10/26/2021 FINDINGS: Lines: None. Lungs: Chronic changes in the left mid lung with architectural distortion and volume loss. No new sup erimposed acute process. Pleural: Pleural thickening and blunted left costophrenic angle similar to prior. Cardiac: The heart size is within normal limits. Bones: No acute fractures. Other: IMPRESSION: Chronic changes without superimposed acute process identified.
[2021-12-21 19:55] LABS: Ferritin 56.1 ng/mL (8-388)
[2021-12-21] MEDS ORDERED: CEFTRIAXONE 1000 MG/VIAL ONE (20:09)
[2021-12-21] MEDS ORDERED: NA CHLORIDE 0.9% 50 ML ONE (20:09)
--- NOTE | 2021-12-21 21:02 | EDPHYS ---
Physician Documentation [facility] Name: Falguni Marcelino Age: 81 yrs Sex: Female : 1940 Arrival Date: 12/21/2021 Time: 17:10 Bed 19 Private MD: Irwin Corbett V ED Physician Lance Esteves HPI: 12/21 18:33 This 81 yrs old Female presents to ER via Ambulatory with complaints of Covid+, Urinary cp Problem. 18:33 The patient presents with urinary symptoms, dysuria, frequency. cp 18:33 The patient or guardian reports cough, that is intermittent, with no sputum. Associated cp signs and symptoms: Pertinent negatives: chest pain, fever, vomiting, abdominal pain. Patient presents to ED with c/o dysuria and cough. Patient reports positive COVID-19 test at local [facility] today. Historical: - Allergies: 17:21 Morphine; hb - PMHx: 17:21 Cancer; Hypertension; Hypothyroidism; hb - PSHx: 17:21 Appendectomy; hysterectomy; Heart Stents; hb - Immunization history:: Adult Immunizations up to date, Client reports receiving the 2nd dose of the Covid vaccine. - Social history:: Smoking status: Patient denies any tobacco usage or history of. ROS: 18:35 Constitutional: Negative for body aches, chills, fever, poor PO intake. cp 18:35 Cardiovascular: Negative for chest pain, edema, palpitations. cp 18:35 Respiratory: Positive for cough, "sounds productive", Negative for shortness of breath, wheezing. 18:35 Abdomen/GI: Negative for abdominal pain, nausea, vomiting, and diarrhea. 18:35 : Positive for urinary symptoms. 18:35 Eyes: Negative for injury, pain, redness, and discharge. cp 18:35 Neuro: Negative for altered mental status, dizziness, headache, weakness. cp 18:35 All other systems are negative. Exam: 18:40 Constitutional: The patient appears in no acute distress, alert, awake, comfortable, cp non-diaphoretic, non-toxic, well developed, well nourished. 18:40 Head/Face: Normocephalic, atraumatic. cp 18:40 Eyes: Periorbital structures: appear normal, Conjunctiva: normal, no exudate, no injection, Sclera: no appreciated abnormality, Lids and lashes: appear normal, bilaterally. 18:40 ENT: External ear(s): are unremarkable, Ear canal(s): are normal, clear, TM's: dullness, bilaterally, Nose: is normal, Mouth: Lips: moist, Oral mucosa: pink and intact, moist, Posterior pharynx: Airway: no evidence of obstruction, patent, Tonsils: are normal in appearance, erythema, that is mild, exudate, is not appreciated. 18:40 Neck: ROM/movement: is normal, is supple, without pain, no range of motions limitations, no meningismus. 18:40 Chest/axilla: Inspection: normal. 18:40 Cardiovascular: Rate: normal, Rhythm: regular. 18:40 Respiratory: the patient does not display signs of respiratory distress, Respirations: normal, no use of accessory muscles, no retractions, labored breathing, is not present, Breath sounds: decreased breath sounds, are not appreciated, stridor, is not appreciated, + upper airway congestion. wheezing: that is mild, is heard in the left posterior lower lobe. 18:40 Abdomen/GI: Inspection: abdomen appears normal, Bowel sounds: active, all quadrants, Palpation: abdomen is soft and non-tender, in all quadrants. 18:40 Back: CVA tenderness, is absent. 18:40 Skin: cellulitis, is not appreciated, no rash present. 18:40 Neuro: Orientation: to person, place \\T\\ time. Mentation: is normal, Motor: moves all fours, strength is normal, Sensation: is normal, Gait: is steady, at a normal pace, without difficulty. 18:50 ECG was reviewed by the Attending Physician. cp Vital Signs: 17:17 BP 135 / 73; Pulse 92; Resp 28; Temp 98.3; Pulse Ox 100% on R/A; Weight 48.08 kg; hb Height 4 ft. 9 in. (144.78 cm); Pain 0/10; 21:22 BP 155 / 83; Pulse 74; Resp 19; Pulse Ox 100% on R/A; sm5 17:17 Body Mass Index 22.94 (48.08 kg, 144.78 cm) hb MDM: 17:56 Patient medically screened. cp 19:00 Differential diagnosis: bronchitis, flu, sepsis, pneumonia, UTI. cp 21:00 Data reviewed: vital signs, nurses notes, lab test result(s), EKG, radiologic studies, cp plain films. 21:00 Test interpretation: by ED physician or midlevel provider: ECG, plain radiologic cp studies. 21:00 Counseling: I had a detailed discussion with the patient and/or guardian regarding: the cp historical points, exam findings, and any diagnostic results supporting the discharge/admit diagnosis, lab results, radiology results, the need for outpatient follow up, an podiatrist, to return to the emergency department if symptoms worsen or persist or if there are any questions or concerns that arise at home. 21:00 ED course: VSS. Patient appears non-toxic and no signs of respiratory distress. Will cp discharge to home for continued monitoring. 12/21 18:28 Order name: Urine Microscopic Only; Complete Time: 19:56 12/21 19:56 Interpretation: Normal except: UWBC >50; URBC 5-10; UBACT >50; DAVID Cx 3+. 12/21 18:28 Order name: COVID-19 SARS RT PCR (Document "Date of Onset" if Symptomatic); Complete cp Time: 22:35 12/21 18:28 Order name: Influenza Screen (a \\T\\ B); Complete Time: 20:31 12/21 20:31 Interpretation: Abnormal: FLUB FLU B ----- POSITIVE for FLU B protein antigen. 12/21 18:28 Order name: Basic Metabolic Panel; Complete Time: 19:56 12/21 19:56 Interpretation: Normal except: BUN 24; CRE 1.54; GFR 34. 12/21 18:28 Order name: CBC with Diff; Complete Time: 19:56 12/21 19:57 Interpretation: Normal except: RBC 3.18; HGB 10.1; HCT 29.3; MN% 14.7; EOSINOPHIL % 4.8. 12/21 18:28 Order name: LFT's; Complete Time: 19:56 12/21 19:58 Interpretation: Normal except: ALB 3.3; GLOB 3.9; A/G 0.8. 12/21 18:28 Order name: Magnesium; Complete Time: 19:56 12/21 18:28 Order name: NT PRO-BNP; Complete Time: 19:56 12/21 19:57 Interpretation: Abnormal: NT PRO-BNP 3836. cp 12/21 18:28 Order name: PT-INR; Complete Time: 19:56 cp 12/21 18:28 Order name: XRAY Chest (1 view); Complete Time: 19:56 cp 12/21 19:58 Interpretation: Report review. cp 12/21 18:28 Order name: CRP; Complete Time: 19:56 cp 12/21 19:58 Interpretation: Abnormal: C-REACTIVE PROT 10.20. cp 12/21 18:28 Order name: Procalcitonin; Complete Time: 20:31 cp 12/21 20:31 Interpretation: Reviewed. cp 12/21 18:28 Order name: Ferritin; Complete Time: 19:56 cp 12/21 18:59 Order name: Urine Culture EDND 12/21 18:28 Order name: EKG; Complete Time: 18:30 cp 12/21 18:28 Order name: Cardiac monitoring; Complete Time: 19:04 cp 12/21 18:28 Order name: EKG - Nurse/Tech; Complete Time: 19:04 cp 12/21 18:28 Order name: IV Saline Lock; Complete Time: 19:04 cp 12/21 18:28 Order name: Labs collected and sent; Complete Time: 19:04 cp 12/21 18:28 Order name: O2 Per Protocol; Complete Time: 20:00 cp 12/21 18:28 Order name: O2 Sat Monitoring; Complete Time: 19:04 cp EC:50 Rate is 88 beats/min. Rhythm is regular. WI interval is normal. QRS interval is normal. cp QT interval is normal. T waves are Inverted in lead aVR. Interpreted by me. Reviewed by me. Administered Medications: 19:29 Drug: Bebtelovimab 175 mg Route: IV; Rate: calculated rate; Site: right antecubital; 5 20:00 Follow up: Response: No adverse reaction 5 20:08 Drug: Rocephin (cefTRIAXone) 1 grams Route: IV; Rate: calculated rate; Site: right sm5 antecubital; 21:21 Drug: Tamiflu (oseltamivir) 75 mg Route: PO; sm5 21:21 Follow up: Response: No adverse reaction 5 Disposition: 22:36 Co-signature as Attending Physician, Lance CARBAJAL was immediately available on-site ms3 in the Emergency Department for consultation in the care of the patient.. Disposition Summary: 12/21/21 21:01 Discharge Ordered Location: Home cp Problem: new cp Symptoms: have improved cp Condition: Stable cp Diagnosis - UTI/ Urinary tract infection, site not specified cp - SARS-associated coronavirus as the cause of diseases classified elsewhere cp - Influenza due to other identified influenza virus with other respiratory cp manifestations Followup: cp - With: Private Physician - When: 1 - 2 days - Reason: Worsening of condition Discharge Instructions: - Discharge Summary Sheet cp - Influenza, Adult cp - Urinary Tract Infection, Adult cp - Aspirin and Your Heart cp - COVID-19 cp - How to Use a Nebulizer, Adult cp - COVID-19: What Your Test Results Mean - [facility] [place] cp - Things to Know about the COVID-19 Pandemic - [facility] [place] cp - 10 Things You Can Do to Manage Your COVID-19 Symptoms at Home - [facility] [place] cp - COVID-19: Quarantine vs. Isolation - [facility] [place] cp - Prevent the Spread of COVID-19 if You Are Sick - [facility] [place] cp Forms: - Medication Reconciliation Form cp - Thank You Letter cp - Antibiotic Education cp - Prescription Opioid Use cp Prescriptions: - Bromfed DM 2-30-10 mg/5 mL Oral syrup - take 7.5 milliliter by ORAL route every 6 hours; 180 milliliter; Refills: 0, cp Product Selection Permitted - NEBULIZER - inhale 1 vial by INHALATION route every 4-6 hours 1 Nubulizer machine with 2 cp sets adult tubing; 1 Device; Refills: 0, Product Selection Permitted - albuterol sulfate 90 mcg/actuation Inhalation HFA aerosol inhaler - inhale 1 puff by INHALATION route every 4-6 hours; 1 Inhaler; Refills: 0, cp Product Selection Permitted - Tamiflu 75 mg Oral Capsule - take 1 tablet by ORAL route every 12 hours for 5 days; 10 tablet; Refills: 0, cp Product Selection Permitted - Albuterol Sulfate 2.5 mg /3 mL (0.083 %) Inhalation Solution for Nebulization - inhale 1 unit by NEBULIZATION route every 8 hours As needed; 1 box; Refills: 0, cp Product Selection Permitted - cefpodoxime 100 mg Oral Tablet - take 1 tablet by ORAL route every 12 hours for 10 days take with food; 20 cp tablet; Refills: 0, Product Selection Permitted Signatures: Dispatcher [employer] EDND Tonny Puckett PA PA cp Winnie Walker, RN RN Lance Esteves, DO HERMOSILLO ms3 Medina Parra RN RN sm5 Corrections: (The following items were deleted from the chart) 17:22 17:21 Allergies: Codeine; hb hb 19:04 18:28 Urine Dipstick-Ancillary ordered. cp jg9
--- NOTE | 2021-12-21 21:02 | ER ---
Nurse's Notes [facility] Name: Falguni Marcelino Age: 81 yrs Sex: Female : 1940 Arrival Date: 12/21/2021 Time: 17:10 Bed 19 Private MD: Irwin Corbett V Diagnosis: UTI/ Urinary tract infection, site not specified;SARS-associated coronavirus as the cause of diseases classified elsewhere;Influenza due to other identified influenza virus with other respiratory manifestations Presentation: 12/21 17:17 Chief complaint: Had cardiac cath with 3 stents placed last Monday, c/o SOB x 5 hb days, urinary frequency and burning with urination x 4 days, cough and sore throat x 3 days. Tested COVID POSITIVE today. Coronavirus screen: Client presents with at least one sign or symptom that may indicate coronavirus-19. Standard/surgical mask placed on the client. Provider contacted for isolation considerations. Ebola Screen: No symptoms or risks identified at this time. Initial Sepsis Screen: Does the patient meet any 2 criteria? No. Patient's initial sepsis screen is negative. Does the patient have a suspected source of infection? No. Patient's initial sepsis screen is negative. Risk Assessment: Do you want to hurt yourself or someone else? Patient reports no desire to harm self or others. Onset of symptoms was December 16, 2021. 17:17 Method Of Arrival: Ambulatory 17:17 Acuity: BRYANT 3 hb Triage Assessment: 21:22 General: Appears in no apparent distress. Behavior is cooperative. sm5 Historical: - Allergies: 17:21 Morphine; hb - PMHx: 17:21 Cancer; Hypertension; Hypothyroidism; hb - PSHx: 17:21 Appendectomy; hysterectomy; Heart Stents; hb - Immunization history:: Adult Immunizations up to date, Client reports receiving the 2nd dose of the Covid vaccine. - Social history:: Smoking status: Patient denies any tobacco usage or history of. Screenin:58 Abuse screen: Denies threats or abuse. Denies injuries from another. Nutritional sm5 screening: No deficits noted. Tuberculosis screening: No symptoms or risk factors identified. Fall Risk None identified. Assessment: 18:07 Pain: Complains of pain in groin. Respiratory: Reports shortness of breath on exertion jg9 since Monday Breath sounds are clear in left upper lobe and left lower lobe Breath sounds are diminished in right upper lobe, right middle lobe and right lower lobe. 19:35 Reassessment: No changes from previously documented assessment. Patient is alert, sm5 oriented x 3, equal unlabored respirations, skin warm/dry/pink. 21:21 Reassessment: No changes from previously documented assessment. Patient and/or family sm5 updated on plan of care and expected duration. Pain level reassessed. Vital Signs: 17:17 BP 135 / 73; Pulse 92; Resp 28; Temp 98.3; Pulse Ox 100% on R/A; Weight 48.08 kg; hb Height 4 ft. 9 in. (144.78 cm); Pain 0/10; 21:22 BP 155 / 83; Pulse 74; Resp 19; Pulse Ox 100% on R/A; sm5 17:17 Body Mass Index 22.94 (48.08 kg, 144.78 cm) hb ED Course: 17:10 Patient arrived in ED. mr 17:10 Irwin Corbett MD is Private Physician. mr 17:21 Triage completed. hb 17:21 Arm band placed on. hb 17:22 Tonny Puckett PA is PHCP. cp 17:23 Lance Esteves DO is Attending Physician. cp 18:07 Jessica Menchaca, RN is Primary Nurse. jg9 18:50 Inserted saline lock: 22 gauge in right antecubital area, using aseptic technique. jg9 Blood collected. 19:15 XRAY Chest (1 view) In Process Unspecified. EDMS 19:58 Patient has correct armband on for positive identification. Bed in low position. Call sm5 light in reach. Side rails up X2. 20:53 Notified ED physician of a critical lab result(s). covid +. tw5 21:22 No provider procedures requiring assistance completed. IV discontinued, intact, sm5 bleeding controlled, No redness/swelling at site. Pressure dressing applied. Administered Medications: 19:29 Drug: Bebtelovimab 175 mg Route: IV; Rate: calculated rate; Site: right antecubital; sm5 20:00 Follow up: Response: No adverse reaction 5 20:08 Drug: Rocephin (cefTRIAXone) 1 grams Route: IV; Rate: calculated rate; Site: right sm5 antecubital; 21:21 Drug: Tamiflu (oseltamivir) 75 mg Route: PO; 5 21:21 Follow up: Response: No adverse reaction 5 Medication: 21:22 VIS not applicable for this client. 5 Outcome: 21: Discharge ordered by . greg 21:22 Discharged to home ambulatory, with family. 5 21:22 Condition: stable 21:22 Discharge instructions given to patient, family, Instructed on discharge instructions, follow up and referral plans. medication usage, Demonstrated understanding of instructions, follow-up care, medications, Prescriptions given X 5 21:23 Patient left the ED. 5 Signatures: Dispatcher [employer] EDWV Lyn Goodman mr Tonny Puckett PA PA cp Baxter, Heather, RN RN Anita Palomares tw5 Medina Parra RN RN 5 Jessica Menchaca RN RN jg9 Corrections: (The following items were deleted from the chart) 17:22 17:21 Allergies: Codeine; hb hb
[2021-12-21] MEDS ORDERED: OSELTAMIVIR 75 MG CAP ONE (21:23)
[2021-12-21 21:39] VITALS: TEMP 98.3; O2SAT 100
[2021-12-21 21:41] VITALS: BP 155/83
--- NOTE | 2021-12-22 07:22 | EKG ---
Test Date: 2021-12-21 Test Time: 18:47:41 Filament Cutter: MICHEAL MEASUREMENT RESULTS: Intervals: Rate: 88 KS: 124 QRSD: 74 QT: 372 QTc: 450 [place]: P: 86 KS: 124 QRS: 106 T: 54 INTERPRETIVE STATEMENTS: Sinus rhythm with sinus arrhythmia with occasional premature ventricular complexes Rightward axis Anterior infarct, age undetermined Abnormal ECG Compared to ECG 12/09/2021 07:14:06 Ventricular premature complex(es) now present Right-axis deviation now present Myocardial infarct finding now present Electronically Signed On 12-22-21 07:20:31 CDT by Km Mac
--- OUTSIDE RECORDS SUMMARY | 2021-12-23 14:31 | XMS REPORT | Continuity of Care Document ---
:1940 Author Organization [facility] t Address [address] [place] [address] Care Team Providers Name Role Phone MATT Primary Care Physician Unavailable Aldeiri Attending Clinician Unavailable GC_SWHAWPRC_Lotze_P Attending Clinician Unavailable Shari Sánchez Attending Clinician [phone] RADIOLOGY Attending Clinician Unavailable BENJAMIN Attending Clinician [...] Type Policy Number Effective Date Expiration Date Ene billy MEDICARE PART A [id number] 2004 \T\ B 00:00:00 MEDICARE B-[place]: [id number] 2004 [employer] 00:00:00 Problems This patient has no known problems. Allergies, Adverse Reactions, Alerts Allergy Allergy Status Severity Reaction(s) Onset Inactive Treating Comm ents Source Name Type Date Date Clinician morphine DA Active SV RASH 0 [facility] 7-12 Clear 00:00: [address] MORPHINE DRUG Active Unknown-Cmnt 0 Un auroar INGREDI 6-07 ity of 00:00: [address] Medications This patient has no known medications. Procedures This patient has no known procedures. Encounters Start End Encounter Admission Attending Care Care Encounter Source Date/Time Date/Time Type Type Clinicians Facility Department ID 2021-04-05 Emergency [facility] [id number] Univers 06:18:13 [facility] 2021-04-04 Emergency [facility] [id number] Univers 11:05:45 [facility] 2021-12-15 2021-12-16 Inpatient LANDRY Corbin [facility] INTE.02 [id number] [facility] 05:13:00 16:08:00 [facility] 19 [facility] 2021-12-15 2021-12-15 Inpatient LANDRY Corbin [facility] INTE.02 [id number] [facility] 05:13:00 05:12:00 [facility] [id number] [facility] 2021-10-05 2021-10-05 Outpatient GC_[facility] PRIV PRIV [id number] [facility] 05:51:00 05:51:00 _Lotze_P [id number] Medic al 2021-10-01 2021-10-01 Outpatient GC_SWHAWPRC PRIV PRIV [id number] [facility] 10:31:00 10:31:00 _Lotze_P [id number] Medic al 2021-10-01 2021-10-01 Outpatient Sánchez, PRIV PRIV [id number] 00:00:00 00:00:00 Bhavana Mccarthy [id number] 2021-09-30 2021-09-30 Outpatient [facility] PRIV PRIV [id number] [facility] 05:55:00 05:55:00 _Lotze_P [id number] Medic al 2021-06-04 2021-06-04 Outpatient R RADIOLOGY [facility] [id number] Univers 09:51:24 23:59:00 [facility] 2021-06-04 2021-06-04 Outpatient R RADIOLOGY [facility] [id number] Univers 00:00:00 00:00:00 [id number] [facility] 2021-05-25 2021-05-25 Outpatient BENJAMIN, [facility] [id number] [place] 00:00:00 00:00:00 ARLETTE [address] 2020-06-04 2020-06-04 Hospital Radiology [facility] 1.2.840.114 [id number] 13:21:40 23:59:00 Encounter [place] 350.1.13.10 [place] 4.2.7.2.686 [place] [id number] 2020-06-04 2020-06-04 Outpatient R RADIOLOGY [facility] [id number] Univers 13:40:00 13:40:00 [id number] ity [facility] 2020-06-04 2020-06-04 Outpatient R RADIOLOGY [facility] [id number] [facility] 00:00:00 00:00:00 ity [facility] 2020-06-04 2020-06-04 Orders Doctor SHARLA 1.2.840.114 [id number] 00:00:00 00:00:00 Only Unassigned, [place] 350.1.13.10 [place] [facility] 4.2.7.2.686 [id number] 2020-02-06 2020-02-06 Letter SHARLA Cuellar 1.2.840.114 [id number] 00:00:00 00:00:00 (Out) Jennichris ARNOLD 350.1.13.10 [place] [id number] 2020-02-04 2020-02-04 Laboratory Lab, [facility] 1.2.840.114 [id number] 14:50:37 15:10:37 Only Fam Pob I Health 350.1.13.10 [place] 4.2.7.2.686 Professio [id number] nal 0[address] 2020-02-04 2020-02-04 Outpatient R [facility] [id number] Univers 15:00:00 15:00:00 [id number] ity [facility] 2020-02-04 2020-02-04 Outpatient R SARAI, [facility] [id number] Univers 15:00:00 15:00:00 BENY mendiola [facility] 2020-01-04 2020-01-04 Urgent Provider, [facility] [id number] 14:17:46 15:24:42 [facility] 350.1.13.10 Care [place] 4.2.7.2.686 Gab [id number] nal 044 [address] 2020-01-04 2020-01-04 Outpatient R [facility] [id number] Univers 14:20:00 14:20:00 [facility] 2020-01-04 2020-01-04 Outpatient R EBMARC, [facility] [id number] Univers 14:20:00 14:20:00 MERCEDESIA [facility] 2019-06-03 2019-06-03 Outpatient R RADIOLOGY [facility] [id number] Univers 09:04:21 23:59:00 [facility] Results Test Description Test Time Test Comments [...] code = 117.6 mg/dL 0-100 H <100 IMGTUXX033-149 NEAR LDL) OPTIMAL/ABOVE O [id number] 89 HIGH>GJ=795 VERY HIGH*Guide lines provided by the National olesterol EducationProgra m Adult Treatment Panel III BASIC METABOLIC [id number] 16:55:00 Test Item Value Reference Range Interpretation [...] 8.5 mg/dL 8.0-10.5 N CA) CBC W/AUTO [id number] 16:40:00 Test Item Value Reference Range Interpretation [...] DIFF REQUIRED (test code NO = MDIFF) [id number] 16:39:00 Test Item Value Reference Range Interpretation Comments ACT-ISTAT (test code 231 SEC 74-137 H Perform ed by certified = ACTI) 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 [facility] [id number] 14:20:00 Test Item Value Reference Range Interpretation Comments ACT-ISTAT (test code 288 SEC 74-137 H Perform ed by certified = ACTI) 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 [facility] [id number] 13:59:00 Test Item Value Reference Range Interpretation Comments ACT-ISTAT (test code 306 SEC 74-137 H Perform ed by certified = ACTI) 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 [facility] [id number] 13:45:00 Test Item Value Reference Range Interpretation Comments ACT-ISTAT (test code 260 SEC 74-137 H Perform ed by certified = ACTI) 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 CBC W/AUTO [id number] 13:34:00 Test Item Value Reference Range Interpretation [...]
== END 2021-12-21 21:23 | disposition home or self-care (01) ==
LOC: ER 17:08
DX: U07.1 COVID-19 (principal); J10.1 Influenza due to other identified influenza virus with other respiratory manifestations; N39.0 Urinary tract infection, site not specified; I10 Essential (primary) hypertension; Z95.818 Presence of other cardiac implants and grafts; Z88.5 Allergy status to narcotic agent
CPT/HCPCS: 93005; 87088; 85025; 87086; 80048; 36415; 83735; 85610; 80076; 81015; 82728; 84145; 83880; 86140; 87804 ×2; 71045; 96375; 96374; 99284; U0003

== ENCOUNTER 2022-02-24 15:04 | Inpatient (IN) | payer OTHER ==
--- OUTSIDE RECORDS SUMMARY | 2022-02-24 15:11 | XMS REPORT | Continuity of Care Document ---
:[address] [facility] t Address [address] [place] [address] Care Team Providers Name Role Phone DINORAH GUTIERREZ Primary Care Physician Unavailable Rojelio Guevarae X Attending Clinician Unavailable ARLETTE ALEXANDER Attending Clinician Unavailable Lane Corbin Attending Clinician Unavailable [facility]_Lotze_P Attending Clinician Unavailable Bhavana Sánchez Attending Clinician [phone] RADIOLOGY Attending Clinician Unavailable Radiology Attending Clinician Unavailable Doctor Unassigned, [place] Attending Clinician Unavailable Jenni Cuellar RN Attending Clinician Unavailable Lab, [facility] I Attending Clinician Unavailable BENY MOON Attending Clinician Unavailable Provider, [facility] Attending Clinician Unavailable DEMOND GAMEZ Attending Clinician Unavailable Asya Guevarahme X Admitting Clinician Unavailable Lane Corbin Admitting Clinician Unavailable GC[facility]_Lotze_P Admitting Clinician Unavailable DINORAH GUTIERREZ Admitting Clinician Unavailable Payers Payer Name Policy Type Policy Number Effective Date Expiration Date Ene billy MEDICARE PART A [id number] 2004 \T\ B 00:00:00 MEDICARE B-[place]: [id number] 2004 [employer] 00:00:00 Problems This patient has no known problems. Allergies, Adverse Reactions, Alerts Allergy Allergy Status Severity Reaction(s) Onset Inactive Treating Comm ents Source Name Type Date Date Clinician morphine DA Active SV RASH [facility] 7-12 Clear 00:00: Mal[place] [address] [place] [address] MORPHINE DRUG Active Unknown-Cmnt Un aurora INGREDI 607 ity of 00:00: [address] Branch Medications This patient has no known medications. Procedures Procedure Date / Time Performed Performing Clinician Gómez kurt [id number] 2022-01-16 00:00:00 [facility] [id number] 2022-01-12 00:00:00 [facility] [id number] 2022-01-12 00:00:00 [facility] [id number] 2022-01-12 00:00:00 RASSA [facility] [id number] 2022-01-12 00:00:00 RASSA [facility] [id number] 2022-01-12 00:00:00 ALKNE [facility] [id number] 2022-01-12 00:00:00 ALKNE [facility] [id number] 2022-01-12 00:00:00 [facility] [id number] 2022-01-12 00:00:00 [facility] [id number] 2022-01-12 00:00:00 RASSA [facility] Encounters Start End Encounter Admission Attending Care Care Encounter Source Date/Time Date/Time Type Type Clinicians Facility Department ID 2022-01-13 Inpatient EL Paola [facility] INTE [id number] [facility] 14:20:00 Sanju [id number] [facility] 2022-01-12 Inpatient EL Paola [facility] INTE [id number] [facility] 14:18:00 Sanju [id number] [facility] 2021-04-05 Emergency [facility] [id number] Univers 06:18:13 ity of [facility] 2021-04-04 Emergency [facility] [id number] Univers 11:05:45 ity [facility] 2022-01-13 2022-01-25 Inpatient EL Alkarra, [facility] INTE [id number] [facility] 14:20:00 17:25:00 Sanju 90 [facility] 2021-12-28 2021-12-28 Outpatient BENJAMIN, [facility] [id number] [place] 00:00:00 00:00:00 ARLETTE [address] 2021-12-15 2021-12-16 Inpatient LANDRY Corbin, [facility] INTE.02 [id number] [facility] 05:13:00 16:08:00 Molham 19 [facility] 2021-12-15 2021-12-16 Inpatient LANDRY Corbin, [facility] INTE.02 [id number] [facility] 05:13:00 16:08:00 Molham [id number] [facility] 2021-10-05 2021-10-05 Outpatient [facility] PRIV PRIV [id number] [facility] 05:51:00 05:51:00 _Lotze_P [id number] Medic al 2021-10-01 2021-10-01 Outpatient [facility] PRIV PRIV [id number] [facility] 10:31:00 10:31:00 _Lotze_P [id number] Medic al 2021-10-01 2021-10-01 Outpatient Sánchez, PRIV PRIV [id number] 00:00:00 00:00:00 Bhavana Mccarthy [id number] 2021-09-30 2021-09-30 Outpatient [facility] PRIV PRIV [id number] [facility] 05:55:00 05:55:00 _Lotze_P [id number] Medic al 2021-06-04 2021-06-04 Outpatient R RADIOLOGY [facility] [id number] [facility] 09:51:24 23:59:00 [facility] 2021-06-04 2021-06-04 Outpatient R RADIOLOGY [facility] [id number] [facility] 00:00:00 00:00:00 [id number] [facility] 2021-05-25 2021-05-25 Outpatient BENJAMIN, [facility] [id number] [place] 00:00:00 00:00:00 ARLETTE [address] 2020-06-04 2020-06-04 Hospital Radiology [facility] [id number] 13:21:40 23:59:00 Encounter [place] [id number] [place] [id number] [place] [id number] 2020-06-04 2020-06-04 Outpatient R RADIOLOGY [facility] [id number] Univers 13:40:00 13:40:00 [id number] ity [facility] 2020-06-04 2020-06-04 Outpatient R RADIOLOGY [facility] [id number] Univers 00:00:00 00:00:00 ity [facility] 2020-06-04 2020-06-04 Orders Doctor SHARLA [id number] 00:00:00 00:00:00 Only Unassigned, [place] [id number] [place] [facility] [id number] 2020-02-06 2020-02-06 Letter SHARLA Cuellar [id number] 00:00:00 00:00:00 (Out) Jenni Raul [place] [id number] [place] [id number] 2020-02-04 2020-02-04 Laboratory Lab, [facility] [id number] 14:50:37 15:10:37 Only Fam Pob I Health [id number] [place] 4.2.7.2.686 Professio [id number] nal 0[address] 2020-02-04 2020-02-04 Outpatient R [facility] [id number] Univers 15:00:00 15:00:00 [id number] ity [facility] 2020-02-04 2020-02-04 Outpatient R SARAI, [facility] [id number] Univers 15:00:00 15:00:00 BENY [facility] 2020-01-04 2020-01-04 Urgent Provider, [facility] [id number] 14:17:46 15:24:42 Care [facility] [id number] Care [place] [id number] Professio [phone] nal 044 [address] 2020-01-04 2020-01-04 Outpatient R [facility] [id number] Univers 14:20:00 14:20:00 [facility] 2020-01-04 2020-01-04 Outpatient R VERA [facility] [id number] Univers 14:20:00 14:20:00 DEMOND [facility] 2019-06-03 2019-06-03 Outpatient R RADIOLOGY [facility] [id number] Univers 09:04:21 23:59:00 [facility] Results Test Description Test Time Test Comments Results Result Comments Source HGB HCT 2022-01-25 09:48:00 Test Item Value Reference Range Interpretation Comme nts HEMOGLOBIN (test code = HGB) 8.8 g/dL 11.0-15.0 L HEMATOCRIT (test code = HCT) 27.6 % 33.0-45.0 L BASIC METABOLIC [id number] 08:02:00 Test Item Value Reference Range Interpretation Comments SODIUM (test code = NA) 142 mEq/L 134-147 N POTASSIUM (test code = 4.4 mEq/L 3.4-5.0 N K) CHLORIDE (test code = 118 mEq/L 100-108 H CL) CARBON DIOXIDE (test 14 mEq/l 21-33 L code = CO2) ANION GAP (test code = 14 0-20 N GAP) GLUCOSE (test code = 69 mg/dL 70-110 L GLU) BLOOD UREA NITROGEN 17 mg/dL 7-18 N (test code = BUN) GLOMERULAR FILTRATION 59.9 70-80 L Units of measure = RATE (test code = GFR) ml/mi n/1.73 m2 CREATININE (test code = 0.9 mg/dL 0.6-1.3 N CREAT) CALCIUM (test code = 6.8 mg/dL 8.0-10.5 L CA) SERUM [id number] 07:46:00 Test Item Value Reference Range Interpretation Comments SERUM IRON (test code = IRON) 52 mcg/dL 35-150 N [id number] 07:46:00 Test Item Value Reference Range Interpretation Comments FERRITIN (test code = MATT) 75.1 ng/mL 11.0-306.8 N CBC W/AUTO [id number] 07:45:00 Test Item Value Reference Range Interpretation Comments WHITE BLOOD CELL (test code = 14.5 x10 3/uL 4.5-11.0 H WBC) RED BLOOD CELL (test code = 2.53 x10 6/uL 3.54-5.02 L RBC) HEMOGLOBIN (test code = HGB) 7.7 g/dL 11.0-15.0 L HEMATOCRIT (test code = HCT) 25.1 % 33.0-45.0 L MEAN CELL VOLUME (test code = 99.2 fL 81.0-99.0 H MCV) MEAN CELL HGB (test code = 30.4 pg 27.0-33.0 N MCH) MEAN CELL HGB CONCETRATION 30.7 g/dL 33.0-37.0 L (test code = MCHC) RED CELL DISTRIBUTION WIDTH CV 18.8 % 11.5-14.5 H (test code = RDW) RED CELL DISTRIBUTION WIDTH SD 66.9 fL 37.0-54.0 H (test code = RDW-SD) PLATELET COUNT (test code = 362 x10 3/uL 150-400 N PLT) MEAN PLATELET VOLUME (test 11.1 fL 7.0-9.0 H code = MPV) NEUTROPHIL % (test code = NT%) 70.6 % 56.0-77.0 N IMMATURE GRANULOCYTE % (test 1.7 % 0.0-2.0 N code = IG%) LYMPHOCYTE % (test code = LY%) 16.2 % 14.0-32.0 N MONOCYTE % (test code = MO%) 7.0 % 4.8-9.0 N EOSINOPHIL % (test code = EO%) 3.6 % 0.3-3.7 N BASOPHIL % (test code = BA%) 0.9 % 0.0-2.0 N NUCLEATED RBC % (test code = 0.0 % 0-0 N NRBC%) NEUTROPHIL # (test code = NT#) 10.22 x10 3/uL 2.0-7.6 H IMMATURE GRANULOCYTE # (test 0.25 x10 3/uL 0.00-0.03 H code = IG#) LYMPHOCYTE # (test code = LY#) 2.35 x10 3/uL 1.0-3.8 N MONOCYTE # (test code = MO#) 1.02 x10 3/uL 0.1-0.8 H EOSINOPHIL # (test code = EO#) 0.52 x10 3/uL 0.0-0.2 H BASOPHIL # (test code = BA#) 0.13 x10 3/uL 0.0-0.2 N NUCLEATED RBC # (test code = 0.00 x10 3/uL 0.0-0.1 N NRBC#) MANUAL DIFF REQUIRED (test NO code = MDIFF) BASIC METABOLIC [id number] 05:09:00 Test Item Value Reference Range Interpretation Comments SODIUM (test code = NA) 140 mEq/L 134-147 N POTASSIUM (test code = 4.5 mEq/L 3.4-5.0 N K) CHLORIDE (test code = 117 mEq/L 100-108 H CL) CARBON DIOXIDE (test 16 mEq/l 21-33 L code = CO2) ANION GAP (test code = 11 0-20 N GAP) GLUCOSE (test code = 93 mg/dL 70-110 N GLU) BLOOD UREA NITROGEN 21 mg/dL 7-18 H (test code = BUN) GLOMERULAR FILTRATION 53.1 70-80 L Units of measure = RATE (test code = GFR) ml/mi n/1.73 m2 CREATININE (test code = 1.0 mg/dL 0.6-1.3 N CREAT) CALCIUM (test code = 7.7 mg/dL 8.0-10.5 L CA) CBC W/AUTO [id number] 04:35:00 Test Item Value Reference Range Interpretation Comments WHITE BLOOD CELL (test code = 13.0 x10 3/uL 4.5-11.0 H WBC) RED BLOOD CELL (test code = 2.44 x10 6/uL 3.54-5.02 L RBC) HEMOGLOBIN (test code = HGB) 7.4 g/dL 11.0-15.0 L HEMATOCRIT (test code = HCT) 23.0 % 33.0-45.0 L MEAN CELL VOLUME (test code = 94.3 fL 81.0-99.0 N MCV) MEAN CELL HGB (test code = MCH) 30.3 pg 27.0-33.0 N MEAN CELL HGB CONCETRATION 32.2 g/dL 33.0-37.0 L (test code = MCHC) RED CELL DISTRIBUTION WIDTH CV 18.6 % 11.5-14.5 H (test code = RDW) RED CELL DISTRIBUTION WIDTH SD 62.3 fL 37.0-54.0 H (test code = RDW-SD) PLATELET COUNT (test code = 350 x10 3/uL 150-400 N PLT) MEAN PLATELET VOLUME (test code 10.9 fL 7.0-9.0 H = MPV) NEUTROPHIL % (test code = NT%) 69.0 % 56.0-77.0 N IMMATURE GRANULOCYTE % (test 2.2 % 0.0-2.0 H code = IG%) LYMPHOCYTE % (test code = LY%) 15.4 % 14.0-32.0 N MONOCYTE % (test code = MO%) 8.6 % 4.8-9.0 N EOSINOPHIL % (test code = EO%) 4.1 % 0.3-3.7 H BASOPHIL % (test code = BA%) 0.7 % 0.0-2.0 N NUCLEATED RBC % (test code = 0.0 % 0-0 N NRBC%) NEUTROPHIL # (test code = NT#) 8.94 x10 3/uL 2.0-7.6 H IMMATURE GRANULOCYTE # (test 0.28 x10 3/uL 0.00-0.03 H code = IG#) LYMPHOCYTE # (test code = LY#) 1.99 x10 3/uL 1.0-3.8 N MONOCYTE # (test code = MO#) 1.12 x10 3/uL 0.1-0.8 H EOSINOPHIL # (test code = EO#) 0.53 x10 3/uL 0.0-0.2 H BASOPHIL # (test code = BA#) 0.09 x10 3/uL 0.0-0.2 N NUCLEATED RBC # (test code = 0.00 x10 3/uL 0.0-0.1 N NRBC#) MANUAL DIFF REQUIRED (test code NO = MDIFF) CBC W/AUTO [id number] 08:38:00 Test Item Value Reference Range Interpretation Comments WHITE BLOOD CELL (test code = 11.8 x10 3/uL 4.5-11.0 H WBC) RED BLOOD CELL (test code = 2.47 x10 6/uL 3.54-5.02 L RBC) HEMOGLOBIN (test code = HGB) 7.5 g/dL 11.0-15.0 L HEMATOCRIT (test code = HCT) 23.3 % 33.0-45.0 L MEAN CELL VOLUME (test code = 94.3 fL 81.0-99.0 MCV) MEAN CELL HGB (test code = MCH) 30.4 pg 27.0-33.0 N MEAN CELL HGB CONCETRATION 32.2 g/dL 33.0-37.0 L (test code = MCHC) RED CELL DISTRIBUTION WIDTH CV 18.6 % 11.5-14.5 H (test code = RDW) RED CELL DISTRIBUTION WIDTH SD 62.1 fL 37.0-54.0 H (test code = RDW-SD) PLATELET COUNT (test code = 336 x10 3/uL 150-400 N PLT) MEAN PLATELET VOLUME (test code 11.1 fL 7.0-9.0 H = MPV) NEUTROPHIL % (test code = NT%) 69.9 % 56.0-77.0 N IMMATURE GRANULOCYTE % (test 2.0 % 0.0-2.0 N code = IG%) LYMPHOCYTE % (test code = LY%) 14.2 % 14.0-32.0 N MONOCYTE % (test code = MO%) 9.2 % 4.8-9.0 H EOSINOPHIL % (test code = EO%) 3.8 % 0.3-3.7 H BASOPHIL % (test code = BA%) 0.9 % 0.0-2.0 N NUCLEATED RBC % (test code = 0.2 % 0-0 H NRBC%) NEUTROPHIL # (test code = NT#) 8.23 x10 3/uL 2.0-7.6 H IMMATURE GRANULOCYTE # (test 0.24 x10 3/uL 0.00-0.03 H code = IG#) LYMPHOCYTE # (test code = LY#) 1.67 x10 3/uL 1.0-3.8 N MONOCYTE # (test code = MO#) 1.09 x10 3/uL 0.1-0.8 H EOSINOPHIL # (test code = EO#) 0.45 x10 3/uL 0.0-0.2 H BASOPHIL # (test code = BA#) 0.11 x10 3/uL 0.0-0.2 N NUCLEATED RBC # (test code = 0.02 x10 3/uL 0.0-0.1 N NRBC#) MANUAL DIFF REQUIRED (test code NO = MDIFF) HGB [id number] 11:22:00 Test Item Value Reference Range Interpretation Comments HEMOGLOBIN (test code = HGB) 6.8 g/dL 11.0-15.0 L HEMATOCRIT (test code = HCT) 20.8 % 33.0-45.0 L BASIC METABOLIC [id number] 08:34:00 Test Item Value Reference Range Interpretation Comments SODIUM (test code = NA) 139 mEq/L 134-147 N POTASSIUM (test code = 4.4 mEq/L 3.4-5.0 N K) CHLORIDE (test code = 113 mEq/L 100-108 H CL) CARBON DIOXIDE (test 19 mEq/l 21-33 L code = CO2) ANION GAP (test code = 12 0-20 N GAP) GLUCOSE (test code = 103 mg/dL 70-110 N GLU) BLOOD UREA NITROGEN 43 mg/dL 7-18 H (test code = BUN) GLOMERULAR FILTRATION 39.2 70-80 L Units of measure = RATE (test code = GFR) ml/mi n/1.73 m2 CREATININE (test code = 1.3 mg/dL 0.6-1.3 N CREAT) CALCIUM (test code = 8.1 mg/dL 8.0-10.5 N CA) [id number] 08:34:00 Test Item Value Reference Range Interpretation Comments PHOSPHOROUS (test code = PHOS) 2.9 MG/DL 2.5-4.9 N [id number] 08:34:00 Test Item Value Reference Range Interpretation Comments MAGNESIUM (test code = MAG) 2.16 mg/dL 1.80-2.40 CALCIUM [id number] 08:34:00 Test Item Value Reference Range Interpretation Comments CALCIUM IONIZED (test code = TOMMY) 1.16 MMOL/L 1.09-1.30 N CBC W/AUTO [id number] 07:31:00 Test Item Value Reference Range Interpretation Comments WHITE BLOOD CELL (test 14.0 x10 3/uL 4.5-11.0 H code = WBC) RED BLOOD CELL (test 1.99 x10 6/uL 3.54-5.02 L code = RBC) HEMOGLOBIN (test code 6.2 g/dL 11.0-15.0 LL Criti kaci result = HGB) called to HARPREET EL/Markell COSTELLOLS at [phone] 01/22/22Nscarlett dorado back resut and tech confirmed it's correct? Y ES HEMATOCRIT (test code 19.7 % 33.0-45.0 L = HCT) MEAN CELL VOLUME (test 99.0 fL 81.0-99.0 N code = MCV) MEAN CELL HGB (test 31.2 pg 27.0-33.0 N code = MCH) MEAN CELL HGB 31.5 g/dL 33.0-37.0 L CONCETRATION (test code = MCHC) RED CELL DISTRIBUTION 15.8 % 11.5-14.5 H WIDTH CV (test code = RDW) RED CELL DISTRIBUTION 56.4 fL 37.0-54.0 H WIDTH SD (test code = RDW-SD) PLATELET COUNT (test 354 x10 3/uL 150-400 N code = PLT) MEAN PLATELET VOLUME 11.2 fL 7.0-9.0 H (test code = MPV) NEUTROPHIL % (test 76.0 % 56.0-77.0 N code = NT%) IMMATURE GRANULOCYTE % 1.4 % 0.0-2.0 N (test code = IG%) LYMPHOCYTE % (test 10.8 % 14.0-32.0 L code = LY%) MONOCYTE % (test code 7.8 % 4.8-9.0 N = MO%) EOSINOPHIL % (test 3.4 % 0.3-3.7 N code = EO%) BASOPHIL % (test code 0.6 % 0.0-2.0 N = BA%) NUCLEATED RBC % (test 0.0 % 0-0 N code = NRBC%) NEUTROPHIL # (test 10.65 x10 3/uL 2.0-7.6 H code = NT#) IMMATURE GRANULOCYTE # 0.19 x10 3/uL 0.00-0.03 H (test code = IG#) LYMPHOCYTE # (test 1.51 x10 3/uL 1.0-3.8 N code = LY#) MONOCYTE # (test code 1.10 x10 3/uL 0.1-0.8 H = MO#) EOSINOPHIL # (test 0.48 x10 3/uL 0.0-0.2 H code = EO#) BASOPHIL # (test code 0.09 x10 3/uL 0.0-0.2 N = BA#) NUCLEATED RBC # (test 0.00 x10 3/uL 0.0-0.1 N code = NRBC#) MANUAL DIFF REQUIRED NO (test code = MDIFF) URINALYSIS [id number] 21:28:00 Test Item Value Reference Range Interpretation Comments UA COLOR (test code = COLU) YELLOW YEL/STRAW UA APPEARANCE (test code = CLOUDY CLEAR A APPU) UA GLUCOSE DIPSTICK (test code NEGATIVE NEGATIVE = DGLUU) UA BILIRUBIN DIPSTICK (test NEGATIVE NEGATIVE code = BILU) UA KETONE DIPSTICK (test code = NEGATIVE NEGATIVE KETU) UA SPECIFIC GRAVITY (test code 1.014 1.005-1.030 N = SGU) UA BLOOD DIPSTICK (test code = 2+ NEGATIVE A OSEAS) UA PH DIPSTICK (test code = 5.0 5.0-7.0 N GEORGINA) UA PROTEIN DIPSTICK (test code 1+ NEGATIVE A = PROU) UA UROBILINIOGEN DIPSTICK (test 0.2 mg/dL 0.2-1.0 code = URO) UA NITRITE DIPSTICK (test code NEGATIVE NEGATIVE = ENA) UA LEUKOCYTE ESTERASE DIPSTICK 3+ NEGATIVE A (test code = LEUU) UA RBC (test code = RBCU) 11-20 RBC/HPF 0-3 UA WBC NO REFLEX (test code = >50 WBC/HPF 0-3 A WBCUCL) UA BACTERIA (test code = BACU) 3+ /HPF NONE SEEN A UA SQUAMOUS CELLS (test code = 6-10 /HPF NONE SEEN A SQU) UA MUCUS (test code = MUCU) TRACE /LPF NONE SEEN HGB [id number] 09:13:00 Test Item Value Reference Range Interpretation Comments HEMOGLOBIN (test code = HGB) 7.4 g/dL 11.0-15.0 L HEMATOCRIT (test code = HCT) 22.7 % 33.0-45.0 L BASIC METABOLIC [id number] 04:58:00 Test Item Value Reference Range Interpretation Comments SODIUM (test code = NA) 138 mEq/L 134-147 N POTASSIUM (test code = 4.6 mEq/L 3.4-5.0 N K) CHLORIDE (test code = 114 mEq/L 100-108 H CL) CARBON DIOXIDE (test 18 mEq/l 21-33 L code = CO2) ANION GAP (test code = 11 0-20 N GAP) GLUCOSE (test code = 106 mg/dL 70-110 N GLU) BLOOD UREA NITROGEN 28 mg/dL 7-18 H (test code = BUN) GLOMERULAR FILTRATION 47.6 70-80 L Units of measure = RATE (test code = GFR) ml/mi n/1.73 m2 CREATININE (test code = 1.1 mg/dL 0.6-1.3 N CREAT) CALCIUM (test code = 7.5 mg/dL 8.0-10.5 L CA) [id number] 04:58:00 Test Item Value Reference Range Interpretation Comments PHOSPHOROUS (test code = PHOS) 3.1 MG/DL 2.5-4.9 [id number] 04:58:00 Test Item Value Reference Range Interpretation Comments MAGNESIUM (test code = MAG) 1.73 mg/dL 1.80-2.40 L CALCIUM [id number] 04:58:00 Test Item Value Reference Range Interpretation Comments CALCIUM IONIZED (test code = TOMMY) 1.06 MMOL/L 1.09-1.30 L CBC W/AUTO [id number] 04:38:00 Test Item Value Reference Range Interpretation Comments WHITE BLOOD CELL (test code = 14.5 x10 3/uL 4.5-11.0 H WBC) RED BLOOD CELL (test code = 2.25 x10 6/uL 3.54-5.02 L RBC) HEMOGLOBIN (test code = HGB) 7.0 g/dL 11.0-15.0 L HEMATOCRIT (test code = HCT) 21.7 % 33.0-45.0 L MEAN CELL VOLUME (test code = 96.4 fL 81.0-99.0 N MCV) MEAN CELL HGB (test code = 31.1 pg 27.0-33.0 N MCH) MEAN CELL HGB CONCETRATION 32.3 g/dL 33.0-37.0 L (test code = MCHC) RED CELL DISTRIBUTION WIDTH CV 15.5 % 11.5-14.5 H (test code = RDW) RED CELL DISTRIBUTION WIDTH SD 52.8 fL 37.0-54.0 N (test code = RDW-SD) PLATELET COUNT (test code = 352 x10 3/uL 150-400 N PLT) MEAN PLATELET VOLUME (test 11.0 fL 7.0-9.0 H code = MPV) NEUTROPHIL % (test code = NT%) 75.7 % 56.0-77.0 N IMMATURE GRANULOCYTE % (test 0.8 % 0.0-2.0 N code = IG%) LYMPHOCYTE % (test code = LY%) 13.1 % 14.0-32.0 L MONOCYTE % (test code = MO%) 8.2 % 4.8-9.0 N EOSINOPHIL % (test code = EO%) 1.5 % 0.3-3.7 N BASOPHIL % (test code = BA%) 0.7 % 0.0-2.0 N NUCLEATED RBC % (test code = 0.0 % 0-0 N NRBC%) NEUTROPHIL # (test code = NT#) 10.95 x10 3/uL 2.0-7.6 H IMMATURE GRANULOCYTE # (test 0.11 x10 3/uL 0.00-0.03 H code = IG#) LYMPHOCYTE # (test code = LY#) 1.89 x10 3/uL 1.0-3.8 N MONOCYTE # (test code = MO#) 1.19 x10 3/uL 0.1-0.8 H EOSINOPHIL # (test code = EO#) 0.21 x10 3/uL 0.0-0.2 H BASOPHIL # (test code = BA#) 0.10 x10 3/uL 0.0-0.2 N NUCLEATED RBC # (test code = 0.00 x10 3/uL 0.0-0.1 N NRBC#) MANUAL DIFF REQUIRED (test NO code = MDIFF) CBC W/AUTO [id number] 06:23:00 Test Item Value Reference Range Interpretation Comments WHITE BLOOD CELL (test code = 12.4 x10 3/uL 4.5-11.0 H WBC) RED BLOOD CELL (test code = 2.65 x10 6/uL 3.54-5.02 L RBC) HEMOGLOBIN (test code = HGB) 8.2 g/dL 11.0-15.0 L HEMATOCRIT (test code = HCT) 25.5 % 33.0-45.0 L MEAN CELL VOLUME (test code = 96.2 fL 81.0-99.0 N MCV) MEAN CELL HGB (test code = MCH) 30.9 pg 27.0-33.0 N MEAN CELL HGB CONCETRATION 32.2 g/dL 33.0-37.0 L (test code = MCHC) RED CELL DISTRIBUTION WIDTH CV 15.4 % 11.5-14.5 H (test code = RDW) RED CELL DISTRIBUTION WIDTH SD 53.5 fL 37.0-54.0 N (test code = RDW-SD) PLATELET COUNT (test code = 357 x10 3/uL 150-400 PLT) MEAN PLATELET VOLUME (test code 11.4 fL 7.0-9.0 H = MPV) NEUTROPHIL % (test code = NT%) 68.4 % 56.0-77.0 N IMMATURE GRANULOCYTE % (test 0.9 % 0.0-2.0 N code = IG%) LYMPHOCYTE % (test code = LY%) 16.2 % 14.0-32.0 N MONOCYTE % (test code = MO%) 7.0 % 4.8-9.0 N EOSINOPHIL % (test code = EO%) 6.8 % 0.3-3.7 H BASOPHIL % (test code = BA%) 0.7 % 0.0-2.0 N NUCLEATED RBC % (test code = 0.0 % 0-0 N NRBC%) NEUTROPHIL # (test code = NT#) 8.51 x10 3/uL 2.0-7.6 H IMMATURE GRANULOCYTE # (test 0.11 x10 3/uL 0.00-0.03 H code = IG#) LYMPHOCYTE # (test code = LY#) 2.01 x10 3/uL 1.0-3.8 N MONOCYTE # (test code = MO#) 0.87 x10 3/uL 0.1-0.8 H EOSINOPHIL # (test code = EO#) 0.84 x10 3/uL 0.0-0.2 H BASOPHIL # (test code = BA#) 0.09 x10 3/uL 0.0-0.2 N NUCLEATED RBC # (test code = 0.00 x10 3/uL 0.0-0.1 N NRBC#) MANUAL DIFF REQUIRED (test code NO = MDIFF) BASIC METABOLIC [id number] 06:19:00 Test Item Value Reference Range Interpretation Comments SODIUM (test code = NA) 140 mEq/L 134-147 N POTASSIUM (test code = 4.4 mEq/L 3.4-5.0 N K) CHLORIDE (test code = 114 mEq/L 100-108 H CL) CARBON DIOXIDE (test 21 mEq/l 21-33 N code = CO2) ANION GAP (test code = 10 0-20 N GAP) GLUCOSE (test code = 95 mg/dL 70-110 N GLU) BLOOD UREA NITROGEN 28 mg/dL 7-18 H (test code = BUN) GLOMERULAR FILTRATION 47.6 70-80 L Units of measure = RATE (test code = GFR) ml/mi n/1.73 m2 CREATININE (test code = 1.1 mg/dL 0.6-1.3 N CREAT) CALCIUM (test code = 7.6 mg/dL 8.0-10.5 L CA) [id number] 06:19:00 Test Item Value Reference Range Interpretation Comments PHOSPHOROUS (test code = PHOS) 1.9 MG/DL 2.5-4.9 L [id number] 06:19:00 Test Item Value Reference Range Interpretation Comments MAGNESIUM (test code = MAG) 1.94 mg/dL 1.80-2.40 N CALCIUM [id number] 06:19:00 Test Item Value Reference Range Interpretation Comments CALCIUM IONIZED (test code = TOMMY) 1.13 MMOL/L 1.09-1.30 N BASIC METABOLIC [id number] 05:54:00 Test Item Value Reference Range Interpretation Comments SODIUM (test code = NA) 141 mEq/L 134-147 N POTASSIUM (test code = 4.5 mEq/L 3.4-5.0 N K) CHLORIDE (test code = 115 mEq/L 100-108 H CL) CARBON DIOXIDE (test 20 mEq/l 21-33 L code = CO2) ANION GAP (test code = 10 0-20 N GAP) GLUCOSE (test code = 98 mg/dL 70-110 N GLU) BLOOD UREA NITROGEN 17 mg/dL 7-18 N (test code = BUN) GLOMERULAR FILTRATION 53.1 70-80 L Units of measure = RATE (test code = GFR) ml/mi n/1.73 m2 CREATININE (test code = 1.0 mg/dL 0.6-1.3 N CREAT) CALCIUM (test code = 7.5 mg/dL 8.0-10.5 L CA) [id number] 05:54:00 Test Item Value Reference Range Interpretation Comments PHOSPHOROUS (test code = PHOS) 2.2 MG/DL 2.5-4.9 L [id number] 05:54:00 Test Item Value Reference Range Interpretation Comments MAGNESIUM (test code = MAG) 2.16 mg/dL 1.80-2.40 N CALCIUM [id number] 05:54:00 Test Item Value Reference Range Interpretation Comments CALCIUM IONIZED (test code = TOMMY) 1.04 MMOL/L 1.09-1.30 L CBC W/AUTO [id number] 05:31:00 Test Item Value Reference Range Interpretation Comments WHITE BLOOD CELL (test code = 12.8 x10 3/uL 4.5-11.0 H WBC) RED BLOOD CELL (test code = 2.52 x10 6/uL 3.54-5.02 L RBC) HEMOGLOBIN (test code = HGB) 7.8 g/dL 11.0-15.0 L HEMATOCRIT (test code = HCT) 24.1 % 33.0-45.0 L MEAN CELL VOLUME (test code = 95.6 fL 81.0-99.0 N MCV) MEAN CELL HGB (test code = MCH) 31.0 pg 27.0-33.0 N MEAN CELL HGB CONCETRATION 32.4 g/dL 33.0-37.0 L (test code = MCHC) RED CELL DISTRIBUTION WIDTH CV 15.6 % 11.5-14.5 H (test code = RDW) RED CELL DISTRIBUTION WIDTH SD 54.2 fL 37.0-54.0 H (test code = RDW-SD) PLATELET COUNT (test code = 212 x10 3/uL 150-400 N PLT) MEAN PLATELET VOLUME (test code 10.8 fL 7.0-9.0 H = MPV) NEUTROPHIL % (test code = NT%) 69.4 % 56.0-77.0 N IMMATURE GRANULOCYTE % (test 0.7 % 0.0-2.0 N code = IG%) LYMPHOCYTE % (test code = LY%) 13.7 % 14.0-32.0 L MONOCYTE % (test code = MO%) 8.5 % 4.8-9.0 N EOSINOPHIL % (test code = EO%) 6.8 % 0.3-3.7 H BASOPHIL % (test code = BA%) 0.9 % 0.0-2.0 N NUCLEATED RBC % (test code = 0.0 % 0-0 N NRBC%) NEUTROPHIL # (test code = NT#) 8.85 x10 3/uL 2.0-7.6 H IMMATURE GRANULOCYTE # (test 0.09 x10 3/uL 0.00-0.03 H code = IG#) LYMPHOCYTE # (test code = LY#) 1.75 x10 3/uL 1.0-3.8 N MONOCYTE # (test code = MO#) 1.08 x10 3/uL 0.1-0.8 H EOSINOPHIL # (test code = EO#) 0.87 x10 3/uL 0.0-0.2 H BASOPHIL # (test code = BA#) 0.12 x10 3/uL 0.0-0.2 N NUCLEATED RBC # (test code = 0.00 x10 3/uL 0.0-0.1 N NRBC#) MANUAL DIFF REQUIRED (test code NO = MDIFF) BASIC METABOLIC [id number] 06:16:00 Test Item Value Reference Range Interpretation Comments SODIUM (test code = NA) 142 mEq/L 134-147 N POTASSIUM (test code = 4.4 mEq/L 3.4-5.0 N K) CHLORIDE (test code = 114 mEq/L 100-108 H CL) CARBON DIOXIDE (test 20 mEq/l 21-33 L code = CO2) ANION GAP (test code = 12 0-20 N GAP) GLUCOSE (test code = 103 mg/dL 70-110 N GLU) BLOOD UREA NITROGEN 17 mg/dL 7-18 (test code = BUN) GLOMERULAR FILTRATION 47.6 70-80 L Units of measure = RATE (test code = GFR) ml/mi n/1.73 m2 CREATININE (test code = 1.1 mg/dL 0.6-1.3 N CREAT) CALCIUM (test code = 7.5 mg/dL 8.0-10.5 L CA) [id number] 06:16:00 Test Item Value Reference Range Interpretation Comments PHOSPHOROUS (test code = PHOS) 2.8 MG/DL 2.5-4.9 [id number] 06:16:00 Test Item Value Reference Range Interpretation Comments MAGNESIUM (test code = MAG) 2.05 mg/dL 1.80-2.40 N CALCIUM [id number] 06:16:00 Test Item Value Reference Range Interpretation Comments CALCIUM IONIZED (test code = TOMMY) 1.08 MMOL/L 1.09-1.30 L CBC W/AUTO [id number] 05:55:00 Test Item Value Reference Range Interpretation Comments WHITE BLOOD CELL (test code = 12.9 x10 3/uL 4.5-11.0 H WBC) RED BLOOD CELL (test code = 2.58 x10 6/uL 3.54-5.02 L RBC) HEMOGLOBIN (test code = HGB) 8.0 g/dL 11.0-15.0 L HEMATOCRIT (test code = HCT) 24.3 % 33.0-45.0 L MEAN CELL VOLUME (test code = 94.2 fL 81.0-99.0 N MCV) MEAN CELL HGB (test code = MCH) 31.0 pg 27.0-33.0 N MEAN CELL HGB CONCETRATION 32.9 g/dL 33.0-37.0 L (test code = MCHC) RED CELL DISTRIBUTION WIDTH CV 16.0 % 11.5-14.5 H (test code = RDW) RED CELL DISTRIBUTION WIDTH SD 54.5 fL 37.0-54.0 H (test code = RDW-SD) PLATELET COUNT (test code = 267 x10 3/uL 150-400 N PLT) MEAN PLATELET VOLUME (test code 11.4 fL 7.0-9.0 H = MPV) NEUTROPHIL % (test code = NT%) 69.3 % 56.0-77.0 N IMMATURE GRANULOCYTE % (test 0.5 % 0.0-2.0 N code = IG%) LYMPHOCYTE % (test code = LY%) 13.5 % 14.0-32.0 L MONOCYTE % (test code = MO%) 9.0 % 4.8-9.0 N EOSINOPHIL % (test code = EO%) 7.0 % 0.3-3.7 H BASOPHIL % (test code = BA%) 0.7 % 0.0-2.0 N NUCLEATED RBC % (test code = 0.0 % 0-0 N NRBC%) NEUTROPHIL # (test code = NT#) 8.96 x10 3/uL 2.0-7.6 H IMMATURE GRANULOCYTE # (test 0.07 x10 3/uL 0.00-0.03 H code = IG#) LYMPHOCYTE # (test code = LY#) 1.75 x10 3/uL 1.0-3.8 N MONOCYTE # (test code = MO#) 1.17 x10 3/uL 0.1-0.8 H EOSINOPHIL # (test code = EO#) 0.90 x10 3/uL 0.0-0.2 H BASOPHIL # (test code = BA#) 0.09 x10 3/uL 0.0-0.2 N NUCLEATED RBC # (test code = 0.00 x10 3/uL 0.0-0.1 N NRBC#) MANUAL DIFF REQUIRED (test code NO = MDIFF) HGB [id number] 13:02:00 Test Item Value Reference Range Interpretation Comments HEMOGLOBIN (test code = HGB) 8.3 g/dL 11.0-15.0 L HEMATOCRIT (test code = HCT) 25.5 % 33.0-45.0 L BASIC METABOLIC [id number] 04:43:00 Test Item Value Reference Range Interpretation Comments SODIUM (test code = NA) 137 mEq/L 134-147 N POTASSIUM (test code = 3.9 mEq/L 3.4-5.0 N K) CHLORIDE (test code = 111 mEq/L 100-108 H CL) CARBON DIOXIDE (test 21 mEq/l 21-33 N code = CO2) ANION GAP (test code = 9 0-20 N GAP) GLUCOSE (test code = 107 mg/dL 70-110 N GLU) BLOOD UREA NITROGEN 23 mg/dL 7-18 H (test code = BUN) GLOMERULAR FILTRATION 39.2 70-80 L Units of measure = RATE (test code = GFR) ml/mi n/1.73 m2 CREATININE (test code = 1.3 mg/dL 0.6-1.3 N CREAT) CALCIUM (test code = 7.4 mg/dL 8.0-10.5 L CA) [id number] 04:43:00 Test Item Value Reference Range Interpretation Comments PHOSPHOROUS (test code = PHOS) 3.8 MG/DL 2.5-4.9 N [id number] 04:43:00 Test Item Value Reference Range Interpretation Comments MAGNESIUM (test code = MAG) 1.84 mg/dL 1.80-2.40 N CALCIUM [id number] 04:43:00 Test Item Value Reference Range Interpretation Comments CALCIUM IONIZED (test code = TOMMY) 1.05 MMOL/L 1.09-1.30 L CBC W/AUTO [id number] 04:28:00 Test Item Value Reference Range Interpretation Comments WHITE BLOOD CELL (test 13.2 x10 3/uL 4.5-11.0 H code = WBC) RED BLOOD CELL (test 1.98 x10 6/uL 3.54-5.02 L code = RBC) HEMOGLOBIN (test code 6.1 g/dL 11.0-15.0 LL Critic al result = HGB) called to BRIGIDA [email or web address].ROSAS at 09 3001/17/22Nscarlett chacko ead back resut and tech confirmed it's correct? Y HEMATOCRIT (test code 18.8 % 33.0-45.0 L = HCT) MEAN CELL VOLUME (test 94.9 fL 81.0-99.0 N code = MCV) MEAN CELL HGB (test 30.8 pg 27.0-33.0 N code = MCH) MEAN CELL HGB 32.4 g/dL 33.0-37.0 L CONCETRATION (test code = MCHC) RED CELL DISTRIBUTION 16.0 % 11.5-14.5 H WIDTH CV (test code = RDW) RED CELL DISTRIBUTION 55.4 fL 37.0-54.0 H WIDTH SD (test code = RDW-SD) PLATELET COUNT (test 248 x10 3/uL 150-400 N code = PLT) MEAN PLATELET VOLUME 11.4 fL 7.0-9.0 H (test code = MPV) NEUTROPHIL % (test 67.6 % 56.0-77.0 N code = NT%) IMMATURE GRANULOCYTE % 0.6 % 0.0-2.0 N (test code = IG%) LYMPHOCYTE % (test 16.6 % 14.0-32.0 N code = LY%) MONOCYTE % (test code 9.7 % 4.8-9.0 H = MO%) EOSINOPHIL % (test 4.7 % 0.3-3.7 H code = EO%) BASOPHIL % (test code 0.8 % 0.0-2.0 N = BA%) NUCLEATED RBC % (test 0.0 % 0-0 N code = NRBC%) NEUTROPHIL # (test 8.89 x10 3/uL 2.0-7.6 H code = NT#) IMMATURE GRANULOCYTE # 0.08 x10 3/uL 0.00-0.03 H (test code = IG#) LYMPHOCYTE # (test 2.19 x10 3/uL 1.0-3.8 N code = LY#) MONOCYTE # (test code 1.28 x10 3/uL 0.1-0.8 H = MO#) EOSINOPHIL # (test 0.62 x10 3/uL 0.0-0.2 H code = EO#) BASOPHIL # (test code 0.11 x10 3/uL 0.0-0.2 N = BA#) NUCLEATED RBC # (test 0.00 x10 3/uL 0.0-0.1 N code = NRBC#) MANUAL DIFF REQUIRED NO (test code = MDIFF) - US EXTREM NON [facility] [id number] 00:00:00 [facility] 1940 Sex: F Name:ELHAM AGARWAL [facility] : 1940 Age/S: 81 / F [address] [place] [address] Unit #: [id number] Loc: [place] [address] Phys: Allan Billingsley MD Acct: [id number] Dis Date: Status: ADM IN PHONE#: [phone] Exam Date: 01/17/2022612 FAX #: [phone] Reason: FOLLOWUP ON LEFT GROIN HEMATOMA EXAMS: CPT CODE: [id number] US EXTREM NON VASC COMP [id number] PROCEDURE INFORMATION: Exam: US Left Non-Vascular Joint or Other Extremity Structure Exam date and time: 01/17/2022 5:01 AM Age: 81 years old Clinical indication: Pain; Thigh; Left; Additional info: Followup on left groin hematoma TECHNIQUE: Imaging protocol: Left US joint or other nonvascular extremity structure or structures. Real-time ultrasound with image documentation. Limited study. Exam focused on the lower extremity in the region of clinical interest. COMPARISON: US GUIDANCE VASC ACCESS (PICC) 01/16/2022 1:23 PM Ultrasound examinationof the left groin soft tissues: There is a thrombosed pseudoaneurysm from the left common femoral artery measuring 3.3 x 1.2 x 2.2 cm. Flow is not identified within the pseudoaneurysm. Drain is noted in the left groin soft tissues. Monophasic flow is seen in the left common femoral artery and proximalleft superficial femoral artery. Elevated velocity is seen in the left proximal superficial femoral artery to 383 cm/s. Impression: 1. 3.3 x 1.2 x 2.2 cm thrombosed pseudoaneurysm from the left commonfemoral artery as above. 2. 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 3. Elevated velocity left proximal superficial femoral artery suggests focal hemodynamically significant stenosis within that artery. at 0729 Reported and signed by: Michael Weiss M.D. CC: Sanju Guevara MD; Allan Billingsley MD; Dae Weaver MD Technologist: Minerva Perera RDMS(AB)(OB) Trnscb Date/Time: 01/17/2022 (728) [email or web address] Orig Print D/T: S: 01/17/2022 (728) Probe: PAGE 1 Signed ReportHGB [id number] 20:01:00 Test Item Value Reference Range Interpretation Comments HEMOGLOBIN (test code = HGB) 7.1 g/dL 11.0-15.0 L HEMATOCRIT (test code = HCT) 21.7 % 33.0-45.0 L BASIC METABOLIC [id number] 05:46:00 Test Item Value Reference Range Interpretation Comments SODIUM (test code = NA) 138 mEq/L 134-147 N POTASSIUM (test code = 4.1 mEq/L 3.4-5.0 N K) CHLORIDE (test code = 113 mEq/L 100-108 H CL) CARBON DIOXIDE (test 21 mEq/l 21-33 N code = CO2) ANION GAP (test code = 8 0-20 N GAP) GLUCOSE (test code = 100 mg/dL 70-110 N GLU) BLOOD UREA NITROGEN 17 mg/dL 7-18 N (test code = BUN) GLOMERULAR FILTRATION 47.6 70-80 L Units of measure = RATE (test code = GFR) ml/mi n/1.73 m2 CREATININE (test code = 1.1 mg/dL 0.6-1.3 N CREAT) CALCIUM (test code = 8.1 mg/dL 8.0-10.5 N CA) [id number] 05:46:00 Test Item Value Reference Range Interpretation Comments PHOSPHOROUS (test code = PHOS) 3.8 MG/DL 2.5-4.9 [id number] 05:46:00 Test Item Value Reference Range Interpretation Comments MAGNESIUM (test code = MAG) 2.15 mg/dL 1.80-2.40 CALCIUM [id number] 05:46:00 Test Item Value Reference Range Interpretation Comments CALCIUM IONIZED (test code = TOMMY) 1.09 MMOL/L 1.09-1.30 N CBC W/AUTO [id number] 05:26:00 Test Item Value Reference Range Interpretation Comments WHITE BLOOD CELL (test code = 10.9 x10 3/uL 4.5-11.0 N WBC) RED BLOOD CELL (test code = 2.36 x10 6/uL 3.54-5.02 L RBC) HEMOGLOBIN (test code = HGB) 7.3 g/dL 11.0-15.0 L HEMATOCRIT (test code = HCT) 22.5 % 33.0-45.0 L MEAN CELL VOLUME (test code = 95.3 fL 81.0-99.0 N MCV) MEAN CELL HGB (test code = MCH) 30.9 pg 27.0-33.0 N MEAN CELL HGB CONCETRATION 32.4 g/dL 33.0-37.0 L (test code = MCHC) RED CELL DISTRIBUTION WIDTH CV 15.7 % 11.5-14.5 H (test code = RDW) RED CELL DISTRIBUTION WIDTH SD 54.3 fL 37.0-54.0 H (test code = RDW-SD) PLATELET COUNT (test code = 239 x10 3/uL 150-400 N PLT) MEAN PLATELET VOLUME (test code 11.5 fL 7.0-9.0 H = MPV) NEUTROPHIL % (test code = NT%) 66.5 % 56.0-77.0 N IMMATURE GRANULOCYTE % (test 0.4 % 0.0-2.0 N code = IG%) LYMPHOCYTE % (test code = LY%) 15.9 % 14.0-32.0 N MONOCYTE % (test code = MO%) 9.7 % 4.8-9.0 H EOSINOPHIL % (test code = EO%) 6.8 % 0.3-3.7 H BASOPHIL % (test code = BA%) 0.7 % 0.0-2.0 N NUCLEATED RBC % (test code = 0.0 % 0-0 N NRBC%) NEUTROPHIL # (test code = NT#) 7.22 x10 3/uL 2.0-7.6 N IMMATURE GRANULOCYTE # (test 0.04 x10 3/uL 0.00-0.03 H code = IG#) LYMPHOCYTE # (test code = LY#) 1.73 x10 3/uL 1.0-3.8 N MONOCYTE # (test code = MO#) 1.05 x10 3/uL 0.1-0.8 H EOSINOPHIL # (test code = EO#) 0.74 x10 3/uL 0.0-0.2 H BASOPHIL # (test code = BA#) 0.08 x10 3/uL 0.0-0.2 N NUCLEATED RBC # (test code = 0.00 x10 3/uL 0.0-0.1 N NRBC#) MANUAL DIFF REQUIRED (test code NO = MDIFF) - US GUIDANCE [facility] [id number] 00:00:00 [facility] RODY MALAVEName: ELHAM AGARWAL : 1940 Sex: F Name:ELHAM AGARWAL [facility] Rody Malave : 1940 Age/S: 81 / F [address] [place] [address] Blvd Unit #: [id number] Loc: [place] [address] Phys: Allan Billingsley MD Acct: [id number] Dis Date: Status: ADM IN PHONE#: [phone] Exam Date: 01/16/2022 1414 FAX #: [phone] Reason: Left common femoral artery pseudoaneurysm EXAMS: CPT CODE: [id number] US GUIDANCE [facility] ACCESS [id number] PROCEDURE INFORMATION: Exam: USDuplex Left Lower Extremity Arteries Or Arterial Bypass Grafts Exam date and time: 01/16/2022 1:23 PMAge: 81 years old Clinical indication: Pain: Lt CA / groin pain; Additional info: Left common femoral artery pseudoaneurysm- US guided thrombin injection. TECHNIQUE: Imaging protocol: Left Real-time duplex scan of the arteries or arterial bypass grafts of the left lower extremity with 2-D kennedy scale, color Doppler flow and spectral waveform analysis. Images documented and saved. COMPARISON: 1. US [facility]I/LTD 01/12/2022 8:58 PM , CTA abdomen pelvis 01/12/2022, CT left lower extremity 01/16/2022FINDINGS: The initial images demonstrate a 1.8 x 2 x 2.7 cm pseudoaneurysm extending from the left co mmon femoral artery. The pseudoaneurysm neck is 9 mm diameter. The common femoral artery demonstrates a triphasic high resistance arterial waveform with peak velocity of 70 cm/s. The post-injection images demonstrate complete thrombosis of the pseudoaneurysm with no residual Doppler flow. There is color Doppler flow detected consistent with patency of the common femoral artery following injection. IMPRESSION: Images document successful complete thrombosis of a left common femoral artery pseudoaneurysm following thrombin injection. at 1540 Reported and signed by: Jose Knight D.O. CC: Sanju Guevara MD; Allan Billingsley MD; Dae Weaver MD Technologist: Rina Wilhelm RDMS(OB) Trnscb Date/Time: 01/16/2022 (154) [email or web address] Orig Print D/T: S: 01/16/2022 (494) Probe: PAGE 1 Signed Report- CT LOWER EXTRM W/CON [id number] 00:00:00 [facility] : 1940 Sex: F Name:ELHAM AGARWAL [facility] : 1940 Age/S: 81 / F [address] [place] [address] Unit #: [id number] Loc: [facility] ADRYAN [address] Phys: Allan Billingsley MD Acct: [id number] Dis Date: Status: ADM IN PHONE #: [phone] Exam Date: 01/16/2022 08 FAX #: [phone] Reason: INCREASED SIZE OF HEMATOMA EXAMS: CPT CODE: [id number] CT LOWER EXTRM W/[place] [address] PROCEDURE INFORMATION: Exam: CT Left Lower Extremity With Contrast; Thigh Exam date and time: 01/16/2022 8:53 AM Age: 81 years old Clinical indication: Swelling, leg or foot; Additional info: Increased size of hematoma TECHNIQUE: Imaging protocol:CT of the Left lower extremity with intravenous contrast was performed. Exam focused on the thigh. Radiation optimization: All CT scans at this facility use at least one of these dose optimization techniques: automated exposure control; mA and/or kV adjustment per patient size (includes targeted examswhere dose is matched to clinical indication); or iterative reconstruction. Contrast material: ISO 300; Contrast volume: 100 ml; Contrast route: INTRAVENOUS (IV); COMPARISON: [facility] UNI/LTD 01/12/2022 8:58 PM FINDINGS: Tubes, catheters and devices: Pessary device is noted. Bones/joints: Normal. No acute fracture or dislocation. Soft tissues: Since the previous exam, the hematoma in the proximaland medial aspect of the thigh has decreased in size. Thin band of hematoma remains measuring 5.3 x 0.7 cm on series 4, image 74. Previously it measured up to 9.2 x 5.3 cm by my measurements on the prior in cross-section. Surgical drain is in place. There is new enlargement and heterogeneity within the left adductor muscles and, for example seen on series 4, images 35-82, greatest in the abductor ashu. In greatest cross section on series 4, image 56 the muscle measures close to 8.4 x 8.0 cm. Overall density within the enlarged muscle appears less than the remainder of the thigh musculature. Diffuse superficial soft tissue edema in the visualized pelvis, hip and thigh. Soft tissue defect in the anterior aspect of the thigh. Mild intermuscular fascial edema. Vasculature: Atherosclerotic calcifications. Small rounded area of contrast anterior to the left common femoral artery bifurcation slightlyincreased in size measuring 13 x 12 mm, previously measuring 7 mm. Bowel: Anastomosis in the rectosigmoid colon. Colonic diverticulosis. IMPRESSION: 1. Decreased size and near resolution of previously described hematoma in the superficial soft tissues of the medial aspect of the proximal thigh with drain in place. 2. New nonspecific enlargement and edema within the left adductor PAGE 1 Signed Report (CONTINUED) Name: ELHAM AGARWAL : 1940 Age/S: 81 / F [address] [place] [address] Unit #: [id number] Loc: [place] [address] Phys: Allan Billingsley MD Acct: [id number] Dis Date: Status: ADM IN PHONE #: [phone] Exam Date: 01/16/2022 0859 FAX #: [phone] Reason: INCREASED SIZE OF HEMATOMA EXAMS: CPT CODE: [id number] CT LOWER EXTRM W/[place] [address] (Continued) muscles. 3. Slight increased size of possible pseudoaneurysm near the common femoral artery bifurcation. at 1019 Reported and signed by: Faisal Thomason M.D.CC: Sanju Guevara MD; Allan Billingsley MD; Dae Weaver MD Technologist:Gerry Bills RT(R)(CT) CTDI: DLP: Trnscb Date/Time: 01/16/2022 (1019) [email or web address] PAGE 2 Signed ReportPHOSPHOROUS 2022-01-15 06:45:00 Test Item Value Reference Range Interpretation Comments PHOSPHOROUS (test code = PHOS) 1.7 MG/DL 2.5-4.9 L [id number] 06:45:00 Test Item Value Reference Range Interpretation Comments MAGNESIUM (test code = MAG) 1.68 mg/dL 1.80-2.40 L CALCIUM [id number] 06:45:00 Test Item Value Reference Range Interpretation Comments CALCIUM IONIZED (test code = TOMMY) 1.10 MMOL/L 1.09-1.30 N BASIC METABOLIC [id number] 06:45:00 Test Item Value Reference Range Interpretation Comments SODIUM (test code = NA) 140 mEq/L 134-147 N POTASSIUM (test code = 4.1 mEq/L 3.4-5.0 N K) CHLORIDE (test code = 111 mEq/L 100-108 H CL) CARBON DIOXIDE (test 22 mEq/l 21-33 N code = CO2) ANION GAP (test code = 11 0-20 N GAP) GLUCOSE (test code = 99 mg/dL 70-110 N GLU) BLOOD UREA NITROGEN 18 mg/dL 7-18 N (test code = BUN) GLOMERULAR FILTRATION 47.6 70-80 L Units of measure = RATE (test code = GFR) ml/mi n/1.73 m2 CREATININE (test code = 1.1 mg/dL 0.6-1.3 N CREAT) CALCIUM (test code = 7.8 mg/dL 8.0-10.5 L CA) CBC W/AUTO [id number] 06:31:00 Test Item Value Reference Range Interpretation Comments WHITE BLOOD CELL (test code = 12.8 x10 3/uL 4.5-11.0 H WBC) RED BLOOD CELL (test code = 2.45 x10 6/uL 3.54-5.02 L RBC) HEMOGLOBIN (test code = HGB) 7.8 g/dL 11.0-15.0 L HEMATOCRIT (test code = HCT) 23.2 % 33.0-45.0 L MEAN CELL VOLUME (test code = 94.7 fL 81.0-99.0 N MCV) MEAN CELL HGB (test code = MCH) 31.8 pg 27.0-33.0 N MEAN CELL HGB CONCETRATION 33.6 g/dL 33.0-37.0 N (test code = MCHC) RED CELL DISTRIBUTION WIDTH CV 16.1 % 11.5-14.5 H (test code = RDW) RED CELL DISTRIBUTION WIDTH SD 55.5 fL 37.0-54.0 H (test code = RDW-SD) PLATELET COUNT (test code = 234 x10 3/uL 150-400 N PLT) MEAN PLATELET VOLUME (test code 11.4 fL 7.0-9.0 H = MPV) NEUTROPHIL % (test code = NT%) 71.8 % 56.0-77.0 N IMMATURE GRANULOCYTE % (test 0.5 % 0.0-2.0 N code = IG%) LYMPHOCYTE % (test code = LY%) 12.8 % 14.0-32.0 L MONOCYTE % (test code = MO%) 9.2 % 4.8-9.0 H EOSINOPHIL % (test code = EO%) 5.2 % 0.3-3.7 H BASOPHIL % (test code = BA%) 0.5 % 0.0-2.0 N NUCLEATED RBC % (test code = 0.0 % 0-0 N NRBC%) NEUTROPHIL # (test code = NT#) 9.17 x10 3/uL 2.0-7.6 H IMMATURE GRANULOCYTE # (test 0.07 x10 3/uL 0.00-0.03 H code = IG#) LYMPHOCYTE # (test code = LY#) 1.63 x10 3/uL 1.0-3.8 N MONOCYTE # (test code = MO#) 1.18 x10 3/uL 0.1-0.8 H EOSINOPHIL # (test code = EO#) 0.66 x10 3/uL 0.0-0.2 H BASOPHIL # (test code = BA#) 0.07 x10 3/uL 0.0-0.2 N NUCLEATED RBC # (test code = 0.00 x10 3/uL 0.0-0.1 N NRBC#) MANUAL DIFF REQUIRED (test code NO = MDIFF) - XR CHEST 1 [id number] 00:00:00 [facility] 1940 Sex: F FAX: Sanju Brooks MD [phone] [place]: St: ADM FAX: Gloria Matson MD [phone] FAX: Dae Beckett MD [phone] Name: ELHAM AGARWAL [facility] : 1940 Age/S: 81/F [address] [place] [address] Unit #: [id number] Loc: [address] [place] [address] Phys: Gloria Oscar MD Acct: [id number] Dis Date: Status: ADM IN PHONE #: [phone] Exam Date: 01/15/2022 191 FAX #: [phone] Reason: SHORT OF BREATH EXAMS: CPT CODE: [id number] XR CHEST 1 V 20773 PROCEDURE INFORMATION: Exam: XR Chest Exam date and time: 01/15/2022 6:55 PM Age: 81 years old Clinical indication: Shortness of breath; Additional info: Short of breath TECHNIQUE: Imaging protocol: Radiologic exam of the chest. Views: 1 view. COMPARISON: CR XR CHEST 1V 01/12/2022 11:48 PM FINDINGS: Tubes, catheters and devices: An endotracheal tube and enteric tube have been removed compared to prior. Lungs: There is pulmonary hyperinflation. Previous left pulmonary airspace disease is near completely resolved with minimal reticular density remaining. Pleural spaces: There is a stable small left pleural effusion. There is no pneumothorax. Heart/Mediastinum: Unr emarkable. No cardiomegaly. Vasculature: There are moderate calcifications of the aorta. Bones/joints: Unremarkable. IMPRESSION: 1. There is a stable small left pleural effusion. 2. Previous left pulmonary airspace disease is near completely resolved with minimal reticular density remaining. at 2055 Reported and signed by: Jose Knight D.O. CC: Sanju Guevara MD; Gloria Oscar MD; Dae Weaver MD Technologist: RT Russ(R) Trnscrd Date/Time/By: 01/15/2022 (2055) : By: [email or web address] [facility] Print D/T: S: 01/15/2022 (2055) PAGE 1 Signed ReportCBC W/AUTO [id number] 14:45:00 Test Item Value Reference Range Interpretation Comments WHITE BLOOD CELL (test code = 13.7 x10 3/uL 4.5-11.0 H WBC) RED BLOOD CELL (test code = 2.35 x10 6/uL 3.54-5.02 L RBC) HEMOGLOBIN (test code = HGB) 7.4 g/dL 11.0-15.0 L HEMATOCRIT (test code = HCT) 22.3 % 33.0-45.0 L MEAN CELL VOLUME (test code = 94.9 fL 81.0-99.0 N MCV) MEAN CELL HGB (test code = 31.5 pg 27.0-33.0 N MCH) MEAN CELL HGB CONCETRATION 33.2 g/dL 33.0-37.0 N (test code = MCHC) RED CELL DISTRIBUTION WIDTH CV 17.0 % 11.5-14.5 H (test code = RDW) RED CELL DISTRIBUTION WIDTH SD 58.3 fL 37.0-54.0 H (test code = RDW-SD) PLATELET COUNT (test code = 213 x10 3/uL 150-400 N PLT) MEAN PLATELET VOLUME (test 11.4 fL 7.0-9.0 H code = MPV) NEUTROPHIL % (test code = NT%) 74.4 % 56.0-77.0 N IMMATURE GRANULOCYTE % (test 0.5 % 0.0-2.0 N code = IG%) LYMPHOCYTE % (test code = LY%) 11.9 % 14.0-32.0 L MONOCYTE % (test code = MO%) 9.8 % 4.8-9.0 H EOSINOPHIL % (test code = EO%) 2.8 % 0.3-3.7 N BASOPHIL % (test code = BA%) 0.6 % 0.0-2.0 N NUCLEATED RBC % (test code = 0.0 % 0-0 N NRBC%) NEUTROPHIL # (test code = NT#) 10.20 x10 3/uL 2.0-7.6 H IMMATURE GRANULOCYTE # (test 0.07 x10 3/uL 0.00-0.03 H code = IG#) LYMPHOCYTE # (test code = LY#) 1.63 x10 3/uL 1.0-3.8 N MONOCYTE # (test code = MO#) 1.35 x10 3/uL 0.1-0.8 H EOSINOPHIL # (test code = EO#) 0.39 x10 3/uL 0.0-0.2 H BASOPHIL # (test code = BA#) 0.08 x10 3/uL 0.0-0.2 N NUCLEATED RBC # (test code = 0.00 x10 3/uL 0.0-0.1 N NRBC#) MANUAL DIFF REQUIRED (test NO code = MDIFF) BASIC METABOLIC [id number] 07:55:00 Test Item Value Reference Range Interpretation Comments SODIUM (test code = NA) 137 mEq/L 134-147 N POTASSIUM (test code = 3.7 mEq/L 3.4-5.0 N K) CHLORIDE (test code = 109 mEq/L 100-108 H CL) CARBON DIOXIDE (test 22 mEq/l 21-33 N code = CO2) ANION GAP (test code = 10 0-20 N GAP) GLUCOSE (test code = 112 mg/dL 70-110 H GLU) BLOOD UREA NITROGEN 19 mg/dL 7-18 H (test code = BUN) GLOMERULAR FILTRATION 43.0 70-80 L Units of measure = RATE (test code = GFR) ml/mi n/1.73 m2 CREATININE (test code = 1.2 mg/dL 0.6-1.3 N CREAT) CALCIUM (test code = 7.6 mg/dL 8.0-10.5 L CA) [id number] 07:55:00 Test Item Value Reference Range Interpretation Comments MAGNESIUM (test code = MAG) 2.10 mg/dL 1.80-2.40 CBC W/AUTO [id number] 05:44:00 Test Item Value Reference Range Interpretation Comments WHITE BLOOD CELL (test code = 13.7 x10 3/uL 4.5-11.0 H WBC) RED BLOOD CELL (test code = 2.27 x10 6/uL 3.54-5.02 L RBC) HEMOGLOBIN (test code = HGB) 7.0 g/dL 11.0-15.0 L HEMATOCRIT (test code = HCT) 21.3 % 33.0-45.0 L MEAN CELL VOLUME (test code = 93.8 fL 81.0-99.0 N MCV) MEAN CELL HGB (test code = 30.8 pg 27.0-33.0 N MCH) MEAN CELL HGB CONCETRATION 32.9 g/dL 33.0-37.0 L (test code = MCHC) RED CELL DISTRIBUTION WIDTH CV 17.6 % 11.5-14.5 H (test code = RDW) RED CELL DISTRIBUTION WIDTH SD 59.9 fL 37.0-54.0 H (test code = RDW-SD) PLATELET COUNT (test code = 214 x10 3/uL 150-400 N PLT) MEAN PLATELET VOLUME (test 11.8 fL 7.0-9.0 H code = MPV) NEUTROPHIL % (test code = NT%) 81.5 % 56.0-77.0 H IMMATURE GRANULOCYTE % (test 0.6 % 0.0-2.0 N code = IG%) LYMPHOCYTE % (test code = LY%) 7.7 % 14.0-32.0 L MONOCYTE % (test code = MO%) 8.7 % 4.8-9.0 N EOSINOPHIL % (test code = EO%) 0.9 % 0.3-3.7 N BASOPHIL % (test code = BA%) 0.6 % 0.0-2.0 N NUCLEATED RBC % (test code = 0.0 % 0-0 N NRBC%) NEUTROPHIL # (test code = NT#) 11.19 x10 3/uL 2.0-7.6 H IMMATURE GRANULOCYTE # (test 0.08 x10 3/uL 0.00-0.03 H code = IG#) LYMPHOCYTE # (test code = LY#) 1.05 x10 3/uL 1.0-3.8 N MONOCYTE # (test code = MO#) 1.19 x10 3/uL 0.1-0.8 H EOSINOPHIL # (test code = EO#) 0.12 x10 3/uL 0.0-0.2 N BASOPHIL # (test code = BA#) 0.08 x10 3/uL 0.0-0.2 N NUCLEATED RBC # (test code = 0.00 x10 3/uL 0.0-0.1 N NRBC#) MANUAL DIFF REQUIRED (test NO code = MDIFF) PROTHROMBIN [id number] 05:43:00 Test Item Value Reference Range Interpretation Comments PROTHROMBIN TIME 12.5 SECONDS 9.3-12.9 N PATIENT (test code = PTP) INTERNATIONAL NORMAL 1.1 0.8-1.2 N TARGET INR BY RATIO (test code = INDICATIO N Indication INR) INR1. Prophylax is of venous thrombos is 2.0 - 3.0 (orthoped ic surgery), Proph ylaxis of venous throm bosis (other than hig h-risk surgery), Treat ment of Deep Vein Thrombosis/Pulm onary Embolism, Preve ntion of systemic emb olism - Tissue heart va lves, Acute Myocardia l Infarction (to prevent systemic emboli sm), Valvular heart disease, Atrial Fibrillation, Bileaflet mecha nical valve in aortic position.2. Mec hanical prosthetic valv es (high risk), 2. 5 - 3.5 Presence of Lup us Anticoagulant o r Antiphospholipi d Antibodies, Pre vention of systemic emb olism - Acute Myocardia l Infarction (to prevent recurrent infar ct). THROMBOPLASTIN TIME [id number] 05:43:00 Test Item Value Reference Range Interpretation Comments THROMBOPLASTIN TIME 25.4 Seconds 25.0-39.5 N Therape utic Range: PARTIAL (test code = 50.4 - 88.3 Seconds PTT) Effective 09/18/2018 HGB [id number] 22:12:00 Test Item Value Reference Range Interpretation Comments HEMOGLOBIN (test code = HGB) 6.8 g/dL 11.0-15.0 L HEMATOCRIT (test code = HCT) 20.7 % 33.0-45.0 L HGB [id number] 16:33:00 Test Item Value Reference Range Interpretation Comments HEMOGLOBIN (test code = HGB) 7.0 g/dL 11.0-15.0 L HEMATOCRIT (test code = HCT) 20.6 % 33.0-45.0 L CBC W/AUTO [id number] 10:43:00 Test Item Value Reference Range Interpretation Comments WHITE BLOOD CELL (test code = 14.6 x10 3/uL 4.5-11.0 H WBC) RED BLOOD CELL (test code = 2.32 x10 6/uL 3.54-5.02 L RBC) HEMOGLOBIN (test code = HGB) 7.3 g/dL 11.0-15.0 L HEMATOCRIT (test code = HCT) 21.2 % 33.0-45.0 L MEAN CELL VOLUME (test code = 91.4 fL 81.0-99.0 N MCV) MEAN CELL HGB (test code = 31.5 pg 27.0-33.0 N MCH) MEAN CELL HGB CONCETRATION 34.4 g/dL 33.0-37.0 N (test code = MCHC) RED CELL DISTRIBUTION WIDTH CV 18.4 % 11.5-14.5 H (test code = RDW) RED CELL DISTRIBUTION WIDTH SD 60.6 fL 37.0-54.0 H (test code = RDW-SD) PLATELET COUNT (test code = 212 x10 3/uL 150-400 N PLT) MEAN PLATELET VOLUME (test 11.4 fL 7.0-9.0 H code = MPV) NEUTROPHIL % (test code = NT%) 82.1 % 56.0-77.0 H IMMATURE GRANULOCYTE % (test 0.5 % 0.0-2.0 N code = IG%) LYMPHOCYTE % (test code = LY%) 7.6 % 14.0-32.0 L MONOCYTE % (test code = MO%) 9.3 % 4.8-9.0 H EOSINOPHIL % (test code = EO%) 0.1 % 0.3-3.7 L BASOPHIL % (test code = BA%) 0.4 % 0.0-2.0 N NUCLEATED RBC % (test code = 0.0 % 0-0 N NRBC%) NEUTROPHIL # (test code = NT#) 11.96 x10 3/uL 2.0-7.6 H IMMATURE GRANULOCYTE # (test 0.07 x10 3/uL 0.00-0.03 H code = IG#) LYMPHOCYTE # (test code = LY#) 1.11 x10 3/uL 1.0-3.8 N MONOCYTE # (test code = MO#) 1.35 x10 3/uL 0.1-0.8 H EOSINOPHIL # (test code = EO#) 0.01 x10 3/uL 0.0-0.2 N BASOPHIL # (test code = BA#) 0.06 x10 3/uL 0.0-0.2 N NUCLEATED RBC # (test code = 0.00 x10 3/uL 0.0-0.1 N NRBC#) MANUAL DIFF REQUIRED (test NO code = MDIFF) BASIC METABOLIC [id number] 04:47:00 Test Item Value Reference Range Interpretation Comments SODIUM (test code = NA) 141 mEq/L 134-147 N POTASSIUM (test code = 4.2 mEq/L 3.4-5.0 N K) CHLORIDE (test code = 116 mEq/L 100-108 H CL) CARBON DIOXIDE (test 20 mEq/l 21-33 L code = CO2) ANION GAP (test code = 9 0-20 N GAP) GLUCOSE (test code = 125 mg/dL 70-110 H GLU) BLOOD UREA NITROGEN 23 mg/dL 7-18 H (test code = BUN) GLOMERULAR FILTRATION 36.0 70-80 L Units of measure = RATE (test code = GFR) ml/mi n/1.73 m2 CREATININE (test code = 1.4 mg/dL 0.6-1.3 H CREAT) CALCIUM (test code = 7.2 mg/dL 8.0-10.5 L CA) [id number] 04:47:00 Test Item Value Reference Range Interpretation Comments PHOSPHOROUS (test code = PHOS) 3.9 MG/DL 2.5-4.9 N [id number] 04:47:00 Test Item Value Reference Range Interpretation Comments MAGNESIUM (test code = MAG) 1.72 mg/dL 1.80-2.40 L CALCIUM [id number] 04:47:00 Test Item Value Reference Range Interpretation Comments CALCIUM IONIZED (test code = TOMMY) 1.13 MMOL/L 1.09-1.30 N CBC W/AUTO [id number] 04:37:00 Test Item Value Reference Range Interpretation Comments WHITE BLOOD CELL (test code = 14.9 x10 3/uL 4.5-11.0 H WBC) RED BLOOD CELL (test code = 2.37 x10 6/uL 3.54-5.02 L RBC) HEMOGLOBIN (test code = HGB) 7.3 g/dL 11.0-15.0 L HEMATOCRIT (test code = HCT) 22.0 % 33.0-45.0 L MEAN CELL VOLUME (test code = 92.8 fL 81.0-99.0 N MCV) MEAN CELL HGB (test code = 30.8 pg 27.0-33.0 N MCH) MEAN CELL HGB CONCETRATION 33.2 g/dL 33.0-37.0 N (test code = MCHC) RED CELL DISTRIBUTION WIDTH CV 17.8 % 11.5-14.5 H (test code = RDW) RED CELL DISTRIBUTION WIDTH SD 60.1 fL 37.0-54.0 H (test code = RDW-SD) PLATELET COUNT (test code = 203 x10 3/uL 150-400 N PLT) MEAN PLATELET VOLUME (test 11.6 fL 7.0-9.0 H code = MPV) NEUTROPHIL % (test code = NT%) 84.6 % 56.0-77.0 H IMMATURE GRANULOCYTE % (test 0.6 % 0.0-2.0 N code = IG%) LYMPHOCYTE % (test code = LY%) 6.9 % 14.0-32.0 L MONOCYTE % (test code = MO%) 7.6 % 4.8-9.0 N EOSINOPHIL % (test code = EO%) 0.0 % 0.3-3.7 L BASOPHIL % (test code = BA%) 0.3 % 0.0-2.0 N NUCLEATED RBC % (test code = 0.0 % 0-0 N NRBC%) NEUTROPHIL # (test code = NT#) 12.60 x10 3/uL 2.0-7.6 H IMMATURE GRANULOCYTE # (test 0.09 x10 3/uL 0.00-0.03 H code = IG#) LYMPHOCYTE # (test code = LY#) 1.03 x10 3/uL 1.0-3.8 N MONOCYTE # (test code = MO#) 1.13 x10 3/uL 0.1-0.8 H EOSINOPHIL # (test code = EO#) 0.00 x10 3/uL 0.0-0.2 N BASOPHIL # (test code = BA#) 0.05 x10 3/uL 0.0-0.2 N NUCLEATED RBC # (test code = 0.00 x10 3/uL 0.0-0.1 N NRBC#) MANUAL DIFF REQUIRED (test NO code = MDIFF) POC ARTERIAL BLOOD [id number] 04:16:00 Test Item Value Reference Range Interpretation Comments POC ARTERIAL BLOOD GAS PH (test 7.318 7.35-7.45 L code = POCPHA) POC ARTERIAL BLOOD GAS PCO2 35.6 mmHg 35.0-45 N (test code = [id number]) POC TCO2 ARTERIAL (test code = 19.2 POCTCO2) POC ARTERIAL BLOOD GAS PO2 (test 148.4 mmHg 80-100.0 H code = ECZGM8I) POC HCO3 ARTERIAL (test code = 18.2 MMOL/L 22.0-26.0 L [id number]) POC BASE EXCESS (test code = -7.9 MMOL/L -4.0-4.0 L POCBEA) POC O2 SATURATION (test code = 99.1 % 90-100 N POCO2S) FIO2 (test code = FIO2A) 40 % PaO2/FiO2 (test code = [id number]) 371.00 mm/Hg ABG DELIVERY (test code = CAITY) Adult Vent ABG VENT MODE (test code = AC MODEA) ABG VENT RESP RATE (test code = 14 /MIN RRA) ABG TIDAL VOLUME (test code = 400 ml TVA) ABG PEEP (test code = PEEPA) 5 cmH2O ABG TEMPERATURE (test code = 99.2 F TEMPA) ABG SITE (test code = SITEA) Art Line BASIC METABOLIC [id number] 04:16:00 Test Item Value Reference Range Interpretation Comments SODIUM (test code = NA/ABG) 143 MEQ/L 134-147 N POTASSIUM (test code = K/ABG) 4.3 MEQ/L 3.4-5.0 N CHLORIDE (test code = CL/ABG) 115 MEQ/L 100-108 H CREATININE ABG (test code = 1.5 mg/dL 0.6-1.0 H CREAABG) POC IONIZED CALCIUM (test code = 1.09 MMOL/L 1.12-1.32 L POCCA) POC GLUCOSE (test code = POCGLU) 119 MG/DL 70-110 H HEMOGLOBIN [id number] 04:16:00 Test Item Value Reference Range Interpretation Comments HEMOGLOBIN ABG (test code = HGB/ABG) 7.0 G/DL 11.0-15.0 L [id number] 04:16:00 Test Item Value Reference Range Interpretation Comments HEMATOCRIT (test code = HCT/ABG) 21 % 33.0-45.0 L POC LACTIC [id number] 04:16:00 Test Item Value Reference Range Interpretation Comments POC LACTIC ACID (test code = 0.7 mmol/l 0.9-1.7 L POCLAC) POC ARTERIAL BLOOD [id number] 01:42:00 Test Item Value Reference Range Interpretation Comments POC ARTERIAL BLOOD GAS PH (test 7.301 7.35-7.45 L code = POCPHA) POC ARTERIAL BLOOD GAS PCO2 39.0 mmHg 35.0-45 N (test code = ADTGYZ4T) POC TCO2 ARTERIAL (test code = 20.4 POCTCO2) POC ARTERIAL BLOOD GAS PO2 (test 184.3 mmHg 80-100.0 H code = CXSJD1O) POC HCO3 ARTERIAL (test code = 19.2 MMOL/L 22.0-26.0 L [id number]) POC BASE EXCESS (test code = -7.2 MMOL/L -4.0-4.0 L POCBEA) POC O2 SATURATION (test code = 99.5 % 90-100 N POCO2S) FIO2 (test code = FIO2A) 50 % PaO2/FiO2 (test code = [id number]) 368.60 mm/Hg ABG DELIVERY (test code = CAITY) Adult Vent ABG VENT MODE (test code = AC MODEA) ABG VENT RESP RATE (test code = 14 /MIN RRA) ABG TIDAL VOLUME (test code = 400 ml TVA) ABG PEEP (test code = PEEPA) 5 cmH2O ABG TEMPERATURE (test code = 99.1 F TEMPA) ABG SITE (test code = SITEA) Art Line BASIC METABOLIC [id number] 01:42:00 Test Item Value Reference Range Interpretation Comments SODIUM (test code = NA/ABG) 142 MEQ/L 134-147 N POTASSIUM (test code = K/ABG) 4.5 MEQ/L 3.4-5.0 N CHLORIDE (test code = CL/ABG) 114 MEQ/L 100-108 H CREATININE ABG (test code = 1.6 mg/dL 0.6-1.0 H CREAABG) POC IONIZED CALCIUM (test code = 1.12 MMOL/L 1.12-1.32 N POCCA) POC GLUCOSE (test code = POCGLU) 116 MG/DL 70-110 H HEMOGLOBIN [id number] 01:42:00 Test Item Value Reference Range Interpretation Comments HEMOGLOBIN ABG (test code = HGB/ABG) 7.7 G/DL 11.0-15.0 L [id number] 01:42:00 Test Item Value Reference Range Interpretation Comments HEMATOCRIT (test code = HCT/ABG) 23 % 33.0-45.0 L POC LACTIC [id number] 01:42:00 Test Item Value Reference Range Interpretation Comments POC LACTIC ACID (test code = 0.5 mmol/l 0.9-1.7 L POCLAC) - XR CHEST 1 [id number] 00:00:00 [facility] : 1940 Sex: F FAX: Sanju Brooks MD [phone] [place]: St: ADM FAX: Deanna Aguilar MD FAX: Dae Beckett MD [phone] Name: ELHAM AGARWAL [facility] : 1940 Age/S: 81/F [address] [place] [address] Unit #: [id number] Loc: G.[address] [place] [id number] Phys: Deanna Aguilar MD Acct: [id number] Dis Date: Status: ADM IN PHONE#: [phone] Exam Date: 01/12/2022 2353 FAX #: [phone] Reason: VERIFY OGT PLACEMENT EXAMS: CPT CODE: [id number] XR CHEST 1 V [id number] PROCEDURE INFORMATION: Exam: XR Chest Exam date and time: 01/12/2022 11:48 PM Age: 81 years old Clinical indication: Device placement; Other: Verify ogt placement TECHNIQUE: Imaging protocol: Radiologic exam of the chest. Views: 1 view. COMPARISON: CR XR CHEST 1V 01/12/2022 9:18 PM FINDINGS: Tubes, catheters and devices: an endotracheal tube terminates just below the clavicles. A nasogastric tube terminates in the abdomen. Lungs: There is left perihilar airspace disease. Pleural spaces: There is blunting the left costophrenic angle. Heart/Mediastinum: There is ath erosclerosis of the coronary vasculature. Bones/joints: Unremarkable. IMPRESSION: 1. Left perihilar airspace disease with blunting the left costophrenic angle suggesting pleural thickening versus smalleffusion. 2. Support devices as noted above. at 0043 Reported and signed by: Magi Ramirez M.D CC: Sanju Guevara MD; Deanna Aguilar MD; Dae Weaver MD Technologist: RT David(Chelo) Trnscrd Date/Time/By: 01/13/2022 (42) : By: [email or web address] Orig Print D/T: S: 01/13/2022 (42) PAGE 1 Signed ReportPOC ARTERIAL BLOOD [id number] 22:14:00 Test Item Value Reference Range Interpretation Comments POC ARTERIAL BLOOD GAS PH (test 7.289 7.35-7.45 LL code = POCPHA) POC ARTERIAL BLOOD GAS PCO2 (test 38.2 mmHg 35.0-45 N code = DACDGN6Q) POC TCO2 ARTERIAL (test code = 19.6 POCTCO2) POC ARTERIAL BLOOD GAS PO2 (test 108.8 mmHg 80-100.0 H code = CNSFI7I) POC HCO3 ARTERIAL (test code = 18.4 MMOL/L 22.0-26.0 L LGMLCU3I) POC BASE EXCESS (test code = -8.3 MMOL/L -4.0-4.0 L POCBEA) POC O2 SATURATION (test code = 97.7 % 90-100 N POCO2S) ABG DELIVERY (test code = CAITY) Adult Vent ABG TEMPERATURE (test code = 98 F TEMPA) ABG SITE (test code = SITEA) Art Line BASIC METABOLIC [id number] 22:14:00 Test Item Value Reference Range Interpretation Comments SODIUM (test code = NA/ABG) 140 MEQ/L 134-147 N POTASSIUM (test code = K/ABG) 4.8 MEQ/L 3.4-5.0 N CHLORIDE (test code = CL/ABG) 113 MEQ/L 100-108 H CREATININE ABG (test code = 1.5 mg/dL 0.6-1.0 H CREAABG) POC IONIZED CALCIUM (test code = 1.12 MMOL/L 1.12-1.32 N POCCA) POC GLUCOSE (test code = POCGLU) 163 MG/DL 70-110 H HEMOGLOBIN [id number] 22:14:00 Test Item Value Reference Range Interpretation Comments HEMOGLOBIN ABG (test code = HGB/ABG) 8.9 G/DL 11.0-15.0 L [id number] 22:14:00 Test Item Value Reference Range Interpretation Comments HEMATOCRIT (test code = HCT/ABG) 26 % 33.0-45.0 L POC LACTIC [id number] 22:14:00 Test Item Value Reference Range Interpretation Comments POC LACTIC ACID (test code = 0.8 mmol/l 0.9-1.7 L POCLAC) POC ARTERIAL BLOOD [id number] 21:29:00 Test Item Value Reference Range Interpretation Comments POC ARTERIAL BLOOD GAS PH (test 7.249 7.35-7.45 LL code = POCPHA) POC ARTERIAL BLOOD GAS PCO2 (test 44.5 mmHg 35.0-45 N code = RGKFBR5E) POC TCO2 ARTERIAL (test code = 20.9 POCTCO2) POC ARTERIAL BLOOD GAS PO2 (test 449.8 mmHg 80-100.0 HH code = MSNCO9L) POC HCO3 ARTERIAL (test code = 19.5 MMOL/L 22.0-26.0 L [id number]) POC BASE EXCESS (test code = -7.8 MMOL/L -4.0-4.0 L POCBEA) POC O2 SATURATION (test code = 100.0 % 90-100 N POCO2S) ABG DELIVERY (test code = CAITY) Adult Vent ABG TEMPERATURE (test code = 98 F TEMPA) ABG SITE (test code = SITEA) Art Line BASIC METABOLIC [id number] 21:29:00 Test Item Value Reference Range Interpretation Comments SODIUM (test code = NA/ABG) 141 MEQ/L 134-147 N POTASSIUM (test code = K/ABG) 4.9 MEQ/L 3.4-5.0 N CHLORIDE (test code = CL/ABG) 113 MEQ/L 100-108 H CREATININE ABG (test code = 1.6 mg/dL 0.6-1.0 H CREAABG) POC IONIZED CALCIUM (test code = 1.13 MMOL/L 1.12-1.32 N POCCA) POC GLUCOSE (test code = POCGLU) 154 MG/DL 70-110 H HEMOGLOBIN [id number] 21:29:00 Test Item Value Reference Range Interpretation Comments HEMOGLOBIN ABG (test code = HGB/ABG) 9.1 G/DL 11.0-15.0 L [id number] 21:29:00 Test Item Value Reference Range Interpretation Comments HEMATOCRIT (test code = HCT/ABG) 27 % 33.0-45.0 L POC LACTIC [id number] 21:29:00 Test Item Value Reference Range Interpretation Comments POC LACTIC ACID (test code = 1.0 mmol/l 0.9-1.7 N POCLAC) COMPREHENSIVE METABOLIC [id number] 20:47:00 Test Item Value Reference Range Interpretation Comments SODIUM (test code = 136 mEq/L 134-147 N NA) POTASSIUM (test code = 5.1 mEq/L 3.4-5.0 H SPECI MEN SLIGHTLY K) HEMOLYZED.Resul ts known to be adv ersely affected by hem olysis are: Potassium Magnesium LDH Phosphorus CHLORIDE (test code = 109 mEq/L 100-108 H CL) CARBON DIOXIDE (test 19 mEq/l 21-33 L code = CO2) ANION GAP (test code = 13 0-20 N GAP) GLUCOSE (test code = 171 mg/dL 70-110 H GLU) BLOOD UREA NITROGEN 23 mg/dL 7-18 H (test code = BUN) GLOMERULAR FILTRATION 33.2 70-80 L Units of measure = RATE (test code = GFR) ml/mi n/1.73 m2 CREATININE (test code 1.5 mg/dL 0.6-1.3 H = CREAT) TOTAL PROTEIN (test 5.6 g/dL 6.4-8.2 L code = PROT) ALBUMIN (test code = 3.00 g/dL 3.4-5.0 L ALB) CALCIUM (test code = 7.6 mg/dL 8.0-10.5 L CA) BILIRUBIN TOTAL (test 0.60 mg/dL 0.0-1.0 N code = BILT) SGOT/AST (test code = 29 IUnit/L 15-37 N AST) SGPT/ALT (test code = 13 IUnit/L 30-65 L ALT) ALKALINE PHOSPHATASE 56 IUnit/L 20-125 N TOTAL (test code = ALKP) CBC W/AUTO [id number] 20:28:00 Test Item Value Reference Range Interpretation Comments WHITE BLOOD CELL (test code = 16.8 x10 3/uL 4.5-11.0 H WBC) RED BLOOD CELL (test code = 3.15 x10 6/uL 3.54-5.02 L RBC) HEMOGLOBIN (test code = HGB) 9.6 g/dL 11.0-15.0 L HEMATOCRIT (test code = HCT) 28.9 % 33.0-45.0 L MEAN CELL VOLUME (test code = 91.7 fL 81.0-99.0 MCV) MEAN CELL HGB (test code = 30.5 pg 27.0-33.0 N MCH) MEAN CELL HGB CONCETRATION 33.2 g/dL 33.0-37.0 N (test code = MCHC) RED CELL DISTRIBUTION WIDTH CV 16.1 % 11.5-14.5 H (test code = RDW) RED CELL DISTRIBUTION WIDTH SD 54.2 fL 37.0-54.0 H (test code = RDW-SD) PLATELET COUNT (test code = 319 x10 3/uL 150-400 N PLT) MEAN PLATELET VOLUME (test 11.3 fL 7.0-9.0 H code = MPV) NEUTROPHIL % (test code = NT%) 87.6 % 56.0-77.0 H IMMATURE GRANULOCYTE % (test 0.5 % 0.0-2.0 N code = IG%) LYMPHOCYTE % (test code = LY%) 6.9 % 14.0-32.0 L MONOCYTE % (test code = MO%) 4.4 % 4.8-9.0 L EOSINOPHIL % (test code = EO%) 0.1 % 0.3-3.7 L BASOPHIL % (test code = BA%) 0.5 % 0.0-2.0 N NUCLEATED RBC % (test code = 0.0 % 0-0 N NRBC%) NEUTROPHIL # (test code = NT#) 14.75 x10 3/uL 2.0-7.6 H IMMATURE GRANULOCYTE # (test 0.08 x10 3/uL 0.00-0.03 H code = IG#) LYMPHOCYTE # (test code = LY#) 1.16 x10 3/uL 1.0-3.8 N MONOCYTE # (test code = MO#) 0.74 x10 3/uL 0.1-0.8 N EOSINOPHIL # (test code = EO#) 0.02 x10 3/uL 0.0-0.2 N BASOPHIL # (test code = BA#) 0.09 x10 3/uL 0.0-0.2 N NUCLEATED RBC # (test code = 0.00 x10 3/uL 0.0-0.1 N NRBC#) MANUAL DIFF REQUIRED (test NO code = MDIFF) COMMENTS: CHECK AFTER BLOOD TRANSFUSIONPO ARTERIAL BLOOD [id number] 19:45:00 Test Item Value Reference Range Interpretation Comments POC ARTERIAL BLOOD GAS PH (test 7.140 7.35-7.45 LL code = POCPHA) POC ARTERIAL BLOOD GAS PCO2 56.1 mmHg 35.0-45 HH (test code = WALBYH5F) POC TCO2 ARTERIAL (test code = 20.8 POCTCO2) POC ARTERIAL BLOOD GAS PO2 (test 47.6 mmHg 80-100.0 LL code = SSBRS7M) POC HCO3 ARTERIAL (test code = 19.1 MMOL/L 22.0-26.0 L TBZCCH1F) POC BASE EXCESS (test code = -10.0 MMOL/L -4.0-4.0 L POCBEA) POC O2 SATURATION (test code = 69.6 % 90-100 L POCO2S) BASIC METABOLIC [id number] 19:45:00 Test Item Value Reference Range Interpretation Comments SODIUM (test code = NA/ABG) 138 MEQ/L 134-147 N POTASSIUM (test code = K/ABG) 5.6 MEQ/L 3.4-5.0 H CHLORIDE (test code = CL/ABG) 112 MEQ/L 100-108 H CREATININE ABG (test code = 1.5 mg/dL 0.6-1.0 H CREAABG) POC IONIZED CALCIUM (test code = 1.16 MMOL/L 1.12-1.32 N POCCA) POC GLUCOSE (test code = POCGLU) 190 MG/DL 70-110 H HEMOGLOBIN [id number] 19:45:00 Test Item Value Reference Range Interpretation Comments HEMOGLOBIN ABG (test code = 11.0 G/DL 11.0-15.0 N HGB/ABG) [id number] 19:45:00 Test Item Value Reference Range Interpretation Comments HEMATOCRIT (test code = HCT/ABG) 32 % 33.0-45.0 L POC LACTIC [id number] 19:45:00 Test Item Value Reference Range Interpretation Comments POC LACTIC ACID (test code = 0.9 mmol/l 0.9-1.7 N POCLAC) CBC W/AUTO [id number] 16:07:00 Test Item Value Reference Range Interpretation Comments WHITE BLOOD CELL (test code = 12.2 x10 3/uL 4.5-11.0 H WBC) RED BLOOD CELL (test code = 2.15 x10 6/uL 3.54-5.02 L RBC) HEMOGLOBIN (test code = HGB) 6.9 g/dL 11.0-15.0 L HEMATOCRIT (test code = HCT) 21.3 % 33.0-45.0 L MEAN CELL VOLUME (test code = 99.1 fL 81.0-99.0 H MCV) MEAN CELL HGB (test code = MCH) 32.1 pg 27.0-33.0 N MEAN CELL HGB CONCETRATION 32.4 g/dL 33.0-37.0 L (test code = MCHC) RED CELL DISTRIBUTION WIDTH CV 14.2 % 11.5-14.5 N (test code = RDW) RED CELL DISTRIBUTION WIDTH SD 51.3 fL 37.0-54.0 N (test code = RDW-SD) PLATELET COUNT (test code = 300 x10 3/uL 150-400 N PLT) MEAN PLATELET VOLUME (test code 11.7 fL 7.0-9.0 H = MPV) NEUTROPHIL % (test code = NT%) 77.9 % 56.0-77.0 H IMMATURE GRANULOCYTE % (test 0.4 % 0.0-2.0 N code = IG%) LYMPHOCYTE % (test code = LY%) 12.3 % 14.0-32.0 L MONOCYTE % (test code = MO%) 6.3 % 4.8-9.0 N EOSINOPHIL % (test code = EO%) 2.4 % 0.3-3.7 N BASOPHIL % (test code = BA%) 0.7 % 0.0-2.0 N NUCLEATED RBC % (test code = 0.0 % 0-0 N NRBC%) NEUTROPHIL # (test code = NT#) 9.50 x10 3/uL 2.0-7.6 H IMMATURE GRANULOCYTE # (test 0.05 x10 3/uL 0.00-0.03 H code = IG#) LYMPHOCYTE # (test code = LY#) 1.50 x10 3/uL 1.0-3.8 N MONOCYTE # (test code = MO#) 0.77 x10 3/uL 0.1-0.8 N EOSINOPHIL # (test code = EO#) 0.29 x10 3/uL 0.0-0.2 H BASOPHIL # (test code = BA#) 0.08 x10 3/uL 0.0-0.2 N NUCLEATED RBC # (test code = 0.00 x10 3/uL 0.0-0.1 N NRBC#) MANUAL DIFF REQUIRED (test code NO = MDIFF) [id number] 15:41:00 Test Item Value Reference Range Interpretation Comments ACT-ISTAT (test code 178 SEC 74-137 H Perform ed 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 [facility] [id number] 12:44:00 Test Item Value Reference Range Interpretation Comments ACT-ISTAT (test code 254 SEC 74-137 H Perform ed 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 [facility] [place] [id number] 12:30:00 Test Item Value Reference Range Interpretation Comments ACT-ISTAT (test code 231 SEC 74-137 H Perform ed 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 [facility] - XR CHEST 1 [id number] 00:00:00 [facility] 1940 Sex: F FAX: Sanju Brooks MD [phone] [place]: St: ADM FAX: Dae Beckett MD [phone] Name: ELHAM AGARWAL [facility] : 1940 Age/S: 81/F [address] [place] [address] Unit #: [id number] Loc: [address] [place] [id number] Phys: Sanju Guevara MD Acct: [id number] Dis Date: Status: ADM IN PHONE #: [phone] Exam Date: 01/12/20222121 FAX #: [phone] Reason: ET PLACEMENT Report Has Been Amended EXAMS: CPT CODE: [id number] XR CHEST 1 V 45252 Addendum - 01/12/2022 SIGNED 01/12/2022 ADDENDUM: [id number] RAD/CXR1 THIS REPORT CONTAINS FINDINGS THAT MAY BE CRITICAL TO PATIENT CARE. The findings were verbally communicated via telephone conference with Dr Aguilar at 10:19 PM CDT on 01/12/2022. The findings were acknowledged and understood. at 9047 Reported and signed by: Jose Knight D.O. Report PROCEDURE INFORMATION: Exam: XR Chest Exam date and time: 01/12/2022 9:18 PM Age: 81 years old Clinical indication: Device placement; Ett placement (vent status); Additional info: Et placement TECHNIQUE: Imaging protocol: Radiologic exam of the chest. Views: 1 view. COMPARISON: CTA ABD PEL W CONT 01/12/2022 6:02 PM FINDINGS: Lungs: There is a right mainstem bronchus intubation. The endotracheal tube terminates 1.8 cm deep to the юлия. Retraction of 5-6 cm is recommended for optimal position. There is mild right infrahilar pulmonary opacity. There is moderate reticulonodular opacity in mid and upper lung. These areas are suspicious for pneumonia. Pleural spaces: There is a new small left pleural effusion. There is no pneumothorax. Heart/Mediasti num: Unremarkable. No cardiomegaly. Vasculature: There are moderate calcifications of the aorta. Bones/joints: Unremarkable. Intraperitoneal space: There are surgical clips in the upper abdomen. IMPRESSION: PAGE 1 Signed Report (CONTINUED) FAX: Sanju Brooks MD [phone] [place]: St: ADM FAX: Dea Beckett MD [phone] Name: ELHAM AGARWAL [facility] : 1940 Age/S: 81/F [address] [place] [address] Unit #: [id number] Loc: [address] [place] [address] Phys: Sanju Guevara MD Acct: [id number] Dis Date: Status: ADM IN PHONE #: [phone] Exam Date: 01/12/20222121 FAX #: [phone] Reason: ET PLACEMENT Report Has Been Amended EXAMS: CPT CODE: [id number] XR CHEST 1 V 23546 (Continued) 1. There is a right mainstem bronchus intubation. The endotracheal tube terminates 1.8 cm deep to the юлия. Retraction of 5-6 cm is recommended for optimal position. 2. There is a new small left pleural effusion. There is no pneumothorax. 3. There is mild right infrahilar pulmonary opacity. There is moderate reticulonodular opacity in mid and upper lung. These areas are suspicious for pneumonia. at 2215 Reported and signed by: Jose Knight D.O. CC: Sanju Guevara MD; Dae Weaver MD Technologist: Ladonna Cardenas, RT(R); Mitzy Burns RT(R) [facility] Date/Time/By: 01/12/2022 (2214) : By: [email or web address] Orig Print D/T: S: 01/12/2022 (2214) PAGE 2 Signed Report- CTA ABD PEL W [id number] 00:00:00 [facility] : 1940 Sex: F Name:ELHAM AGARWAL [facility] : 1940 Age/S: 81 / F [address] [place] [address] Unit #: [id number] Loc: [place] [address] Phys: Allan Billingsley MD Acct: [id number] Dis Date: Status: ADM IN PHONE#: [phone] Exam Date: 01/12/20221756 FAX #: [phone] Reason: LT HEMATOMA LT GROIN Report Has Been Amended EXAMS: CPT CODE: [id number] CTA ABD PEL W CONT 59143 Addendum - 01/12/2022 SIGNED 01/12/2022 ADDENDUM: [id number] CT/CTAAPWCONT I have been informed by sport personnel that the patient's physician, Dr. Billingsley is aware of the findings and patient is going to the OR. at 1857 Reported and signed by: Krzysztof Son M.D. Report PROCEDURE INFORMATION: Exam: CTA Abdomen and Pelvis With Contrast Exam date and time: 01/12/2022 6:02 PM Age: 81 years old Clinical indication: Other: Lt hematoma lt groin TECHNIQUE: Imaging protocol: Computed tomographic angiography of the abdomen and pelvis with contrast. 3D rendering (Not supervised by radiologist): MIP and/or 3D reconstructed images were created by the technologist. Radiation optimization: All CT scans at this facility use at least one of these dose optimization techniques: automated exposure control; mA and/or kV adjustment per patient size (includes targeted exams where dose is matched to clinical indication); or iterative reconstruction. Contrast material: ISOVUE 370; Cont rast volume: 100 ml; Contrast route: INTRAVENOUS (IV); COMPARISON: No relevant prior studies available. FINDINGS: Aorta: Heavy vascular calcification No aortic aneurysm. No aortic dissection. Celiac trunk and mesenteric arteries: No occlusion or significant stenosis. Renal arteries: Calcified plaques in proximal renal artery with moderate stenosis. No occlusion or significant stenosis. Right iliac arteries: Heavy vascular calcification. No occlusion or significant stenosis. Calcified plaques in femoral arteries. Tzcz-wc-nrmgqfoh stenosis in DRAPERY HAND and visualized SFA. PAGE 1 Signed Report (CONTINUED) Name: ELHAM AGARWAL [facility] : 1940 Age/S: 81 / F [address] [place] [address] Blvd Unit #: [id number] Loc: [place] [address] Phys: Allan Billingsley MD Acct: [id number] Dis Date: Status: ADM IN PHONE #: [phone] Exam Date: 01/12/2022 175 FAX #: [phone] Reason: LT HEMATOMA LT GROIN Report Has Been Amended EXAMS: CPT CODE: [id number] CTA ABD PEL W CONT 70485 (Continued) Left iliac arteries: Heavy vascular calcification. No occlusion or significant stenosis. Calcified plaques in femoral arteries. Vffp-hf-jxluhuka stenosis in DRAPERY HAND and visualized SFA. Limited lower chest: Heavy coronary calcification. Calcified plaques in descending thoracic aorta. Reticulonodular opacities in thelower lobes. Calcified granuloma in the right lung base Liver: Unremarkable. Gallbladder and bile ducts: Cholecystectomy. No ductal dilation. Pancreas: Unremarkable. No ductal dilation. Spleen: No splenomegaly. Adrenal glands: Unremarkable. Kidneys and ureters: Bilateral renal cortical thinning and nonobstructing stones. Heavy intrarenal vascular calcification. Left renal cyst. No hydronephrosis. Stomach and bowel: Stomach is moderately distended with air-fluid level. Sigmoid diverticulosis. Moderate fecal load in the colon Appendix: No evidence of appendicitis. Intraperitoneal space: No free air. No significant fluid collection. Lymph nodes: No adenopathy. Urinary bladder: Unremarkable. Reproductive: Hysterectomy. Pelvic floor stabilization device. Ovaries are not visualized with confidence.. Bones/joints: Grade 1 spondylolisthesis at L5-S1 with bilateral pars defect at L5. Chronic appearing compression fracture deformity of L2. Bony osteopenia. Multilevel degenerative changes in thoracolumbarspine. Soft tissues: Large area of stranding, edema inflammation predominantly medial aspect extending from the right groin to the medial upper thigh measuring 7.0 x 5.1 x 12.7 cm, probably hematoma. There is a 1.5 x 0.7 cm elongated hyperdense area anterior to the common femoral arterial bifurcation w hich may represent pseudoaneurysm versus small contrast extravasation. Subcutaneous stranding and edema in the right groin, may be related to recent procedure. IMPRESSION: 1. No evidence for aneurysm or dissection of the abdominal aorta. Heavy vascular calcification. Moderate proximal renal arterial stenosis. 2. Large area of edema, swelling and stranding with 7.0 x 5.1 x 12.7 cm mass extending from the left groin to the left upper thigh, probably soft tissue hemorrhage and hematoma. 1.5 x 0.7 cm PAGE 2 Signed Report (CONTINUED) Name: ELHAM AGARWAL [facility] Lillie : 1940 Age/S: 81 / F [address] [place] [address] Unit #: [id number] Loc: [place] [address] Phys: Allan Billingsley MD Acct: [id number] Dis Date: Status: ADM IN PHONE #: [phone] Exam Date: 01/12/2022 1757 FAX #: [phone] Reason: LT HEMATOMA LT GROIN Report Has Been Amended EXAMS: CPT CODE: [id number] CTA ABD PEL W CONT 17000 (Continued) elongated hypodense area anterior to the DRAPERY HAND bifurcation may represent pseudoan eurysm versus contrast extravasation. 3. Small and atrophy kidneys with cortical scar, nephrolithiasis in heavy intrarenal vascular calcification. No hydronephrosis. Left renal cyst. 4. Reticulonodularopacities in bilateral lower lobes may represent infectious/inflammatory process in appropriate clinical setting. 5. Additional incidental and chronic findings as above. at 1850 Reported and signed by: Krzysztof Son M.D. CC: Sanju Guevara MD; Allan Billingsley MD; Dae Weaver MD Technologist:Blas Moore, RT(R)(CT) CTDI: DLP: Trnscb Da te/Time: 01/12/2022 (1849) [email or web address] Orig Print D/T: S: 01/12/2022 (1849) PAGE 3 Signed Report- RUTH YOGI JACOBSEN [id number] 00:00:00 [facility] 1940 Sex: F Name:ELHAM AGARWAL [facility] : 1940 Age/S: 81 / F [address] [place] [address] Blvd Unit #: [id number] Loc: [place] [address] Phys: Dae Weaver MD Acct: [id number] Dis Date: Status: ADM IN PHONE #:[phone] Exam Date: 01/12/20222119 FAX #: [phone] Reason: HEMATOMA TO LT GROIN EXAMS: CPTCODE: [id number] [facility] [employer] UNI/LTD [address] PROCEDURE INFORMATION: Exam: US Duplex Left Lower Extremity Arteries Or Arterial Bypass Grafts Exam date and time: 01/12/2022 8:58 PM Age: 81 years old Clinicalindication: Other: Lt heart cath w/hem. Had cutdown. ; Additional info: Hematoma to lt groin TECHNIQUE: Imaging protocol: Left Real- time duplex scan of the arteries or arterial bypass grafts of the left lower extremity with 2-D kennedy scale, color Doppler flow and spectral waveform analysis. Images documented and saved. COMPARISON: CTA ABD PEL W CONT 01/12/2022 6:02 PM FINDINGS: Left common femoral artery: The left common femoral artery demonstrates a triphasic high resistance arterial waveform with peak velocity 100 cm/s. Left superficial femoral artery: The left superficial femoral artery demonstrates a high resistance monophasic arterial waveform with peak velocity of 147 cm/s. Other arteries: There is no arterial pseudoaneurysm detected. IMPRESSION: There is no arterial pseudoaneurysm detected. at 2217 Reported and signed by:Jose Knight D.O. CC: Sanju Guevara MD; Dae Weaver MD Technologist: Dede Garsia RDMS(AB)(OB) Trnscb Date/Time: 01/12/2022 (2216) [email or web address] Orig Print D/T: S: 01/12/2022 (2216) Probe: PAGE 1 Signed ReportBASIC METABOLIC PANEL 2022-01-10 15:58:00 Test Item Value Reference Range Interpretation Comments SODIUM (test code = NA) 141 mEq/L 134-147 N POTASSIUM (test code = 5.2 mEq/L 3.4-5.0 H K) CHLORIDE (test code = 110 mEq/L 100-108 H CL) CARBON DIOXIDE (test 24 mEq/l 21-33 N code = CO2) ANION GAP (test code = 12 0-20 N GAP) GLUCOSE (test code = 99 mg/dL 70-110 N GLU) BLOOD UREA NITROGEN 21 mg/dL 7-18 H (test code = BUN) GLOMERULAR FILTRATION 36.0 70-80 L Units of measure = RATE (test code = GFR) ml/mi n/1.73 m2 CREATININE (test code = 1.4 mg/dL 0.6-1.3 H CREAT) CALCIUM (test code = 9.0 mg/dL 8.0-10.5 N CA) PROTHROMBIN [id number] 15:46:00 Test Item Value Reference Range Interpretation Comments PROTHROMBIN TIME 11.2 SECONDS 9.3-12.9 N PATIENT (test code = PTP) INTERNATIONAL NORMAL 1.0 0.8-1.2 N TARGET INR BY RATIO (test code = INDICATIO N Indication INR) INR1. Prophylax is of venous thrombos is 2.0 - 3.0 (orthoped ic surgery), Proph ylaxis of venous throm bosis (other than hig h-risk surgery), Treat ment of Deep Vein Thrombosis/Pulm onary Embolism, Preve ntion of systemic emb olism - Tissue heart va lves, Acute Myocardia l Infarction (to prevent systemic emboli sm), Valvular heart disease, Atrial Fibrillation, Bileaflet mecha nical valve in aortic position.2. Mec hanical prosthetic valv es (high risk), 2. 5 - 3.5 Presence of Lup us Anticoagulant o r Antiphospholipi d Antibodies, Pre vention of systemic emb olism - Acute Myocardia l Infarction (to prevent recurrent infar ct). CBC W/AUTO [id number] 15:40:00 Test Item Value Reference Range Interpretation Comments WHITE BLOOD CELL (test code = 10.1 x10 3/uL 4.5-11.0 N WBC) RED BLOOD CELL (test code = 2.67 x10 6/uL 3.54-5.02 L RBC) HEMOGLOBIN (test code = HGB) 8.5 g/dL 11.0-15.0 L HEMATOCRIT (test code = HCT) 26.4 % 33.0-45.0 L MEAN CELL VOLUME (test code = 98.9 fL 81.0-99.0 N MCV) MEAN CELL HGB (test code = MCH) 31.8 pg 27.0-33.0 N MEAN CELL HGB CONCETRATION 32.2 g/dL 33.0-37.0 L (test code = MCHC) RED CELL DISTRIBUTION WIDTH CV 14.3 % 11.5-14.5 N (test code = RDW) RED CELL DISTRIBUTION WIDTH SD 52.6 fL 37.0-54.0 N (test code = RDW-SD) PLATELET COUNT (test code = 345 x10 3/uL 150-400 N PLT) MEAN PLATELET VOLUME (test code 11.5 fL 7.0-9.0 H = MPV) NEUTROPHIL % (test code = NT%) 64.7 % 56.0-77.0 N IMMATURE GRANULOCYTE % (test 0.3 % 0.0-2.0 N code = IG%) LYMPHOCYTE % (test code = LY%) 23.2 % 14.0-32.0 N MONOCYTE % (test code = MO%) 6.4 % 4.8-9.0 N EOSINOPHIL % (test code = EO%) 4.3 % 0.3-3.7 H BASOPHIL % (test code = BA%) 1.1 % 0.0-2.0 N NUCLEATED RBC % (test code = 0.0 % 0-0 N NRBC%) NEUTROPHIL # (test code = NT#) 6.52 x10 3/uL 2.0-7.6 N IMMATURE GRANULOCYTE # (test 0.03 x10 3/uL 0.00-0.03 N code = IG#) LYMPHOCYTE # (test code = LY#) 2.33 x10 3/uL 1.0-3.8 N MONOCYTE # (test code = MO#) 0.64 x10 3/uL 0.1-0.8 N EOSINOPHIL # (test code = EO#) 0.43 x10 3/uL 0.0-0.2 H BASOPHIL # (test code = BA#) 0.11 x10 3/uL 0.0-0.2 N NUCLEATED RBC # (test code = 0.00 x10 3/uL 0.0-0.1 N NRBC#) MANUAL DIFF REQUIRED (test code NO = MDIFF) LIPID PROFILE (CORONARY RISK)2021-12-16 08:02:00 Test Item Value Reference Range Interpretation Comments TRIGLYCERIDES (test 131 mg/dL 40-150 N code = TRIG) CHOLESTEROL (test 160 mg/dL <200 code = CHOL) CHOLESTEROL/HDL 3.94 RATIO 3.27-4.44 N RISK ASSOCIA ALESSANDRO WITH RATIO (test code = CHOL/HDL RATIOS: RISK CHOLHDL) MALE FEMALE1/2 AVERAGE 3.43 3.27AVERAG E 4.97 4.442X AVERAGE 9.55 7.053X AVERAGE 23.39 11.04 NOTE THAT THE REFERENCE VALUE IS RELATEDTO RISK LEVELS RECOMMENDED BY THE NATL.HEART, LESVIA G, AND BLOOD INST. HDL CHOLESTEROL 40.6 mg/dL 39-96 N (test code = HDL) LIPOPROTEIN LDL 117.6 mg/dL 0-100 H <100 OPTIMAL 100-129 (test code = LDL) NEAR OPTIM AL/ABOVE [id number] HIGH>[place]=057 GENTRY Y HIGH*Guidelines provided by the [facility] Adult Treatment Panel III BASIC METABOLIC [id number] 16:55:00 Test Item Value Reference Range Interpretation [...] 8.5 mg/dL 8.0-10.5 N CA) CBC W/AUTO [id number] 16:40:00 Test Item Value Reference Range Interpretation [...] DIFF REQUIRED (test code NO = MDIFF) [id number] 16:39:00 Test Item Value Reference Range Interpretation Comments ACT-ISTAT (test code 231 SEC 74-137 H Perform ed 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 [facility] [id number] 14:20:00 Test Item Value Reference Range Interpretation Comments ACT-ISTAT (test code 288 SEC 74-137 H Perform ed 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 [facility] [place] [id number] 13:59:00 Test Item Value Reference Range Interpretation Comments ACT-ISTAT (test code 306 SEC 74-137 H Perform ed 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 [facility] [place] [id number] 13:45:00 Test Item Value Reference Range Interpretation Comments ACT-ISTAT (test code 260 SEC 74-137 H Perform ed 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 [facility] [place] [id number] 13:45:00 Test Item Value Reference Range Interpretation Comments ACT-ISTAT (test code 254 SEC 74-137 H Perform ed 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 [facility] [place] BASIC METABOLIC [id number] 13:46:00 Test Item Value Reference Range Interpretation [...] = 9.2 mg/dL 8.0-10.5 N CA) PROTHROMBIN [id number] 13:36:00 Test Item Value Reference Range Interpretation Comments PROTHROMBIN TIME 10.6 SECONDS 9.3-12.9 N PATIENT (test code = PTP) INTERNATIONAL NORMAL 1.0 0.8-1.2 N TARGET INR BY RATIO (test code = INDICATIO N Indication INR) INR1. Prophylax is of venous thrombos is 2.0 - 3.0 (orthoped ic surgery), Proph ylaxis of venous throm bosis (other than hig h-risk surgery), Treat ment of Deep Vein Thrombosis/Pulm onary Embolism, Preve ntion of systemic emb olism - Tissue heart va lves, Acute Myocardia l Infarction (to prevent systemic emboli sm), Valvular heart disease, Atrial Fibrillation, Bileaflet mecha nical valve in aortic position.2. Mec hanical prosthetic valv es (high risk), 2. 5 - 3.5 Presence of Lup us Anticoagulant o r Antiphospholipi d Antibodies, Pre vention of systemic emb olism - Acute Myocardia l Infarction (to prevent recurrent infar ct). CBC W/AUTO [id number] 13:34:00 Test Item Value Reference Range Interpretation [...]
[2022-02-24 18:27] LABS: Protime INR 0.96
[2022-02-24 18:30] LABS: Absolute Lymphocytes (CBC) 1.9 K/uL (0.7-4.9); Hematocrit 28.6 % (36.0-45.0); Lymphocytes % 14.8 % (15.3-44.8); MCV 95.1 fL (80-100); MPV 9.3 fL (7.6-11.3); RBC Red Blood Cell Count 3.01 M/uL (3.86-4.86)
[2022-02-24 18:52] LABS: Potassium 4.1 mmol/L (3.5-5.1); Troponin High Sensitivity 13.7 pg/mL (<58.9)
[2022-02-24 18:56] LABS: SARS-CoV-2 Antigen Rapid Res Negative (Negative)
--- NOTE | 2022-02-24 18:56 | ER ---
Nurse's Notes [facility] Name: Falguni Marcelino Age: 81 yrs Sex: Female : 1940 Arrival Date: 02/24/2022 Time: 15:12 Bed 7 Private MD: Irwin Corbett V Diagnosis: Abdominal pain, unspecified;GI Bleed/ Gastrointestinal hemorrhage, unspecified;Weakness;Unspecified kidney failure-chronic Presentation: 02/24 15:30 Chief complaint: Pt's daughter reports pt was sent here by Dr. Corbett for admission for aa5 GI bleed, pt was seen by Dr. Rice for blood in stool today and abd pain. 15:30 Coronavirus screen: At this time, the client does not indicate any symptoms associated aa5 with coronavirus-19. Ebola Screen: Patient denies travel to an Ebola-affected area in the 21 days before illness onset. Initial Sepsis Screen: Does the patient meet any 2 criteria? No. Patient's initial sepsis screen is negative. Does the patient have a suspected source of infection? No. Patient's initial sepsis screen is negative. Risk Assessment: Do you want to hurt yourself or someone else? Patient reports no desire to harm self or others. Onset of symptoms was February 2022. 15:30 Acuity: BRYANT 3 aa5 15:30 Method Of Arrival: Ambulatory aa5 Historical: - Allergies: 15:31 Morphine; aa5 - PMHx: 15:31 Hypertension; Hypothyroidism; Lung Cancer; aa5 - PSHx: 15:31 Appendectomy; Heart Stents; hysterectomy; aa5 - Immunization history:: Adult Immunizations unknown. - Social history:: Smoking status: Patient denies any tobacco usage or history of. - Family history:: not pertinent. Screenin:55 Abuse screen: Denies threats or abuse. Denies injuries from another. Nutritional as6 screening: No deficits noted. Tuberculosis screening: No symptoms or risk factors identified. Fall Risk None identified. Assessment: 20:55 General: Appears slender, Behavior is calm, cooperative. General: Reports fatigue for. as6 Pain: Denies pain. Neuro: Level of Consciousness is awake, alert. Respiratory: Respiratory effort is even, unlabored. GI: Reports bloody stool. Vital Signs: 15:30 BP 123 / 79; Pulse 82; Resp 18 S; Temp 97.9(TE); Pulse Ox 100% on R/A; Weight 46.27 kg aa5 (M); Height 4 ft. 9 in. (144.78 cm) (R); 20:54 BP 126 / 70; Pulse 68; Resp 18 S; Pulse Ox 99% on R/A; as6 15:30 Body Mass Index 22.07 (46.27 kg, 144.78 cm) aa5 ED Course: 15:12 Patient arrived in ED. am2 15:12 Irwin Corbett MD is Private Physician. am2 15:31 Arm band placed on. aa5 15:34 Triage completed. aa5 17:48 Tonny Butler MD is Attending Physician. vasquez 18:18 XRAY Chest (1 view) In Process Unspecified. EDMS 18:49 CT Abd/Pelvis - Without Contrast In Process Unspecified. EDMS 18:51 Irwin Corbett MD is Hospitalizing Provider. vasquez 19:27 Sha Gavin, RN is Primary Nurse. as6 20:56 Placed in gown. Bed in low position. Call light in reach. Side rails up X 1. as6 Administered Medications: 20:54 Drug: NS 0.9% 1000 ml Route: IV; Rate: 125 ml/hr; Site: left antecubital; as6 20:54 Drug: ProTONIX (pantoprazole) 40 mg Route: IVP; Site: left antecubital; as6 20:54 Drug: Flagyl (metroNIDAZOLE) 500 mg Volume: 100 ml; Route: IVPB; Rate: 200 ml/hr; as6 Infused Over: 30 mins; Site: left antecubital; 21:31 Drug: Rocephin (cefTRIAXone) 1 grams Route: IV; Rate: per protocol; Site: right as6 antecubital; Outcome: 18:55 Decision to Hospitalize by Provider. vasquez 02/25 15:14 Patient left the ED. mb8 Signatures: Dispatcher [employer] EDMS Tonny Butler MD MD cha Calderon, Audri, RN RN aa5 Tereza Tdiwell am2 Sha Gavin RN RN as6 Roque Rdz RN RN mb8 Corrections: (The following items were deleted from the chart) 02/24 15:32 15:31 PMHx: Cancer; aa5 aa5
--- NOTE | 2022-02-24 18:56 | EDPHYS ---
Physician Documentation [facility] Name: Falguni Marcelino Age: 81 yrs Sex: Female : 1940 Arrival Date: 02/24/2022 Time: 15:12 Bed 7 Private MD: Irwin Corbett V ED Physician Tonny Butler HPI: 02/24 18:39 This 81 yrs old Female presents to ER via Ambulatory with complaints of vasquez Abdominal Pain - gi bleed. 18:39 The patient presents with abdominal pain in the upper abdomen, in the lower abdomen. vasquez Onset: The symptoms/episode began/occurred 3 day(s) ago. The patient presents to the emergency department with rectal bleeding, a small amount, Onset: The symptoms/episode began/occurred 3 day(s) ago. Abdominal pain: located in the right lower quadrant and left lower quadrant. Modifying factors: The symptoms are alleviated by nothing, the symptoms are aggravated by nothing. Associated signs and symptoms: The patient has no apparent associated signs or symptoms. The symptoms do not radiate. Associated signs and symptoms: none. Modifying factors: The symptoms are alleviated by nothing, the symptoms are aggravated by nothing. Historical: - Allergies: 15:31 Morphine; aa5 - PMHx: 15:31 Hypertension; Hypothyroidism; Lung Cancer; aa5 - PSHx: 15:31 Appendectomy; Heart Stents; hysterectomy; aa5 - Immunization history:: Adult Immunizations unknown. - Social history:: Smoking status: Patient denies any tobacco usage or history of. - Family history:: not pertinent. ROS: 18:39 Constitutional: Negative for fever, chills, and weight loss, Eyes: Negative for injury, vasquez pain, redness, and discharge, ENT: Negative for injury, pain, and discharge, Neck: Negative for injury, pain, and swelling, Cardiovascular: Negative for chest pain, palpitations, and edema, Respiratory: Negative for shortness of breath, cough, wheezing, and pleuritic chest pain, Back: Negative for injury and pain, : Negative for injury, bleeding, discharge, and swelling, MS/Extremity: Negative for injury and deformity, Skin: Negative for injury, rash, and discoloration, Neuro: Negative for headache, weakness, numbness, tingling, and seizure, Psych: Negative for depression, anxiety, suicide ideation, homicidal ideation, and hallucinations, Allergy/Immunology: Negative for hives, rash, and allergies, Endocrine: Negative for neck swelling, polydipsia, polyuria, polyphagia, and marked weight changes, Hematologic/Lymphatic: Negative for swollen nodes, abnormal bleeding, and unusual bruising. 18:39 Abdomen/GI: Positive for abdominal pain, rectal bleeding, of the right lower quadrant and left lower quadrant. Exam: 18:39 Constitutional: This is a well developed, well nourished patient who is awake, alert, vasquez and in no acute distress. Head/Face: Normocephalic, atraumatic. Eyes: Pupils equal round and reactive to light, extra-ocular motions intact. Lids and lashes normal. Conjunctiva and sclera are non-icteric and not injected. Cornea within normal limits. Periorbital areas with no swelling, redness, or edema. ENT: Nares patent. No nasal discharge, no septal abnormalities noted. Tympanic membranes are normal and external auditory canals are clear. Oropharynx with no redness, swelling, or masses, exudates, or evidence of obstruction, uvula midline. Mucous membranes moist. Neck: Trachea midline, no thyromegaly or masses palpated, and no cervical lymphadenopathy. Supple, full range of motion without nuchal rigidity, or vertebral point tenderness. No Meningismus. Chest/axilla: Normal chest wall appearance and motion. Nontender with no deformity. No lesions are appreciated. Cardiovascular: Regular rate and rhythm with a normal S1 and S2. No gallops, murmurs, or rubs. Normal PMI, no JVD. No pulse deficits. Respiratory: Lungs have equal breath sounds bilaterally, clear to auscultation and percussion. No rales, rhonchi or wheezes noted. No increased work of breathing, no retractions or nasal flaring. Abdomen/GI: Soft, non-tender, with normal bowel sounds. No distension or tympany. No guarding or rebound. No evidence of tenderness throughout. Back: No spinal tenderness. No costovertebral tenderness. Full range of motion. Female : Normal external genitalia. MS/ Extremity: Pulses equal, no cyanosis. Neurovascular intact. Full, normal range of motion. Neuro: Awake and alert, GCS 15, oriented to person, place, time, and situation. Cranial nerves II-XII grossly intact. Motor strength 5/5 in all extremities. Sensory grossly intact. Cerebellar exam normal. Normal gait. Psych: Awake, alert, with orientation to person, place and time. Behavior, mood, and affect are within normal limits. 18:39 Skin: Appearance: Color: pale. 20:19 ECG was reviewed by the Attending Physician. ms3 Vital Signs: 15:30 BP 123 / 79; Pulse 82; Resp 18 S; Temp 97.9(TE); Pulse Ox 100% on R/A; Weight 46.27 kg aa5 (M); Height 4 ft. 9 in. (144.78 cm) (R); 20:54 BP 126 / 70; Pulse 68; Resp 18 S; Pulse Ox 99% on R/A; as6 15:30 Body Mass Index 22.07 (46.27 kg, 144.78 cm) aa5 MDM: 17:48 Patient medically screened. vasquez 18:47 Differential diagnosis: diverticulitis, diverticulitis, gastritis, Irritable bowel vasquez syndrome, non-specific abd pain, pancreatitis, Peptic Ulcer Disease, urinary tract infection. Data reviewed: vital signs, nurses notes, lab test result(s), EKG, radiologic studies, CT scan, plain films. Data interpreted: transportation broker: rate is 82 beats/min, rhythm is regular, Pulse oximetry: on room air is 100 %. Test interpretation: by ED physician or midlevel provider: ECG, plain radiologic studies. Counseling: I had a detailed discussion with the patient and/or guardian regarding: the historical points, exam findings, and any diagnostic results supporting the discharge/admit diagnosis, lab results, radiology results, the need for further work-up and treatment in the hospital. 02/24 17:39 Order name: Basic Metabolic Panel; Complete Time: 19:23 02/24 17:39 Order name: CBC with Diff; Complete Time: 19:23 02/24 17:39 Order name: PT-INR; Complete Time: 19:23 02/24 17:39 Order name: Troponin HS; Complete Time: 19:23 02/24 17:39 Order name: Lipase; Complete Time: 19:23 02/24 17:39 Order name: Type And Screen 02/24 17:39 Order name: XRAY Chest (1 view); Complete Time: 19:23 02/24 17:39 Order name: SARS RAPID; Complete Time: 19:23 02/24 18:36 Order name: CT Abd/Pelvis - Without Contrast [facility] 02/24 19:48 Order name: Urine Dipstick-Ancillary [facility] 02/24 22:03 Order name: ABO/RH no charge [facility] 02/25 04:15 Order name: CBC with Automated Diff [facility] 02/25 04:33 Order name: Basic Metabolic Panel [facility] 02/24 17:39 Order name: EKG; Complete Time: 17:40 02/24 17:39 Order name: Cardiac monitoring; Complete Time: 20:54 02/24 17:39 Order name: EKG - Nurse/Tech; Complete Time: 20:30 02/24 17:39 Order name: IV Saline Lock; Complete Time: 19:44 02/24 17:39 Order name: Labs collected and sent; Complete Time: 19:44 02/24 17:39 Order name: O2 Per Protocol; Complete Time: 20:54 02/24 17:39 Order name: O2 Sat Monitoring; Complete Time: 20:54 02/24 17:51 Order name: Urine Dipstick-Ancillary (obtain specimen); Complete Time: 19:[address] [facility] 02/24 19:12 Order name: CONS Physician Consult EDMS EC:19 Rate is 80 beats/min. Rhythm is regular. QRS Leary is Normal. GA interval is normal. ms3 Clinical impression: Normal ECG. Interpreted by me. Reviewed by me. Administered Medications: 20:54 Drug: NS 0.9% 1000 ml Route: IV; Rate: 125 ml/hr; Site: left antecubital; as6 20:54 Drug: ProTONIX (pantoprazole) 40 mg Route: IVP; Site: left antecubital; as6 20:54 Drug: Flagyl (metroNIDAZOLE) 500 mg Volume: 100 ml; Route: IVPB; Rate: 200 ml/hr; as6 Infused Over: 30 mins; Site: left antecubital; 21:31 Drug: Rocephin (cefTRIAXone) 1 grams Route: IV; Rate: per protocol; Site: right as6 antecubital; Disposition Summary: 02/24/22 18:55 Hospitalization Ordered Hospitalization Status: Observation vasquez Provider: Irwin Corbett cha Condition: Fair vasquez Problem: new vasquez Symptoms: have improved vasquez Bed/Room Type: Standard vasquez Location: Telemetry/MedSurg (observation)(02/25/22 13:39) dw Room Assignment: 411(02/25/22 13:39) Diagnosis - Abdominal pain, unspecified vasquez - GI Bleed/ Gastrointestinal hemorrhage, unspecified vasquez - Weakness vasquez - Unspecified kidney failure - chronic vasquez Forms: - Medication Reconciliation Form vasquez - SBAR form vasquez Signatures: Dispatcher [employer] EDChanda Swain RN RN dw Anderson, Corey, MD MD cha Williams, Irene, RN RN Lucy Peterson RN RN aa5 Nash Snow mw2 Yesika Dillon Lance Esteves DO DO ms3 Sha Gavin RN RN as6 Corrections: (The following items were deleted from the chart) 15:32 15:31 PMHx: Cancer; aa5 aa5 22:59 18:55 Telemetry/MedSurg (observation) [facility] mw2 22:59 18:55 vasquez 2 02/25 13:39 02/24 22:59 [facility] ER HOLD mw2 eb 02/25 13:39 02/24 22:59 ERHOLD- mw2 eb 02/25 13:39 13:39 Telemetry/MedSurg (observation) [facility] 13:39 13:[address] [place] [address]
--- NOTE | 2022-02-24 19:13 | RAD REPORT ---
EXAM DESCRIPTION: RAD - Chest Single View - 02/24/2022 6:16 pm CLINICAL HISTORY: gi bleed, hypertension, lung cancer COMPARISON: Two view chest 02/03/2022 TECHNIQUE: AP portable chest image was obtained 02/24/2022 6:16 pm . FINDINGS: Chronic pleural and parenchymal fibrotic changes are present similar to prior imaging. No superimposed failure, infiltrate or mass. Heart and vasculature are normal. No measurable pleural effusion and no pneumothorax. No acute bony abnormality seen. No acute aortic findings suspected. IMPRESSION: No acute cardiopulmonary process. Chronic chest findings are stable from comparison.
--- NOTE | 2022-02-24 19:27 | RAD REPORT ---
EXAM DESCRIPTION: CT - Abdomen Pelvis Wo Contrast - 02/24/2022 6:47 pm CLINICAL HISTORY: Abdominal pain, acute, nonlocalized COMPARISON: Abdomen Pelvis Wo Contrast dated 02/03/2022; Thorax Wo Con dated 10/26/2021; Stone Protoc ol dated 09/21/2020 TECHNIQUE: Axial [address] imaging of the abdomen and pelvis was performed without IV contrast. No IV contrast was given because of allergy, abnormal renal function, patient refusal or physician re quest. No oral contrast administered. All CT scans are performed using dose optimization technique as appropriate and may include automated exposure control or mA/KV adjustment according to patient size. FINDINGS: Amorphous lung parenchymal opacification in the posterior lower right lung field with asso ciated nodularity is still present. This is similar to the 02/03/2022 study can not substantially dif ferent from a 09/21/2020 study. This is an unusual lung parenchymal pattern. Malignancy is not exclud ed but malignant process would of likely showing growth over this almost 1.5 year interval. No cardio megaly or pericardial effusion. The liver, spleen and pancreas show no suspicious findings on non-contrast imaging. Cholecystectomy c lips are present. No biliary tree dilatation. No hydronephrosis or suspicious renal mass. No significant adrenal finding. Isodense renal masses an d pyelonephritis cannot be excluded in the absence of IV contrast. No suspicious bladder finding. The re is a small diverticulum posterior lower left bladder. Pessary is in place in the vaginal vault. Ut erus is absent. Ovaries are absent or atrophic. Winn of the stomach are prominent but difficult to evaluate given the absence of gastric lumen luke nt. No dilated large or small bowel loops seen. There is sigmoid diverticulosis present without diver ticulitis seen. Approximately 2.5 centimeter area of soft tissue is present in the fatty tissues left -side perineum unchanged from September 2020 imaging. No free air, free fluid or inflammatory stranding. No hernia, mass or bulky lymphadenopathy. Disc and bone degenerative changes are present. L5 pars defects are present with spondylolisthesis. T he T10 and L1 compression fractures are similar to recent imaging. IMPRESSION: Noncontrast CT abdomen and pelvis imaging shows no acute or emergent finding. No focal a bnormality seen as a source for GI bleeding. Posterior lower right lung field parenchymal opacification is present. This is an unusual presentatio n showing little change back to September 2020. Post infection/inflammatory scarring would be possible gi elvis the stability. Malignancy cannot be excluded but would not likely have maintained a stable size o brenna a 1.5 year interval. Full assessment is limited is the absence of IV contrast.
[2022-02-24 19:48] LABS: Urine Blood Trace-intact (Negative); Urine Glucose Negative (Negative); Urine Protein Negative (Negative); Urine Specific Gravity 1.015 (1.005-1.030)
[2022-02-24] MEDS ORDERED: METRONIDAZOLE 500mg IVPB 500 MG/100 ML BAG IV ONE (19:55)
[2022-02-24] MEDS ORDERED: PANTOPRAZOLE 40 MG INJ ONE (19:55)
[2022-02-24] MEDS ORDERED: NA CHLORIDE 0.9% 1,000 ML ONE (19:55)
[2022-02-24] MEDS ORDERED: CEFTRIAXONE 1000 MG/VIAL ONE (19:55)
[2022-02-24] MEDS ORDERED: NA CHLORIDE 0.9% 50 ML ONE (19:56)
[2022-02-24] MEDS ORDERED: SODIUM CHLORIDE 0.9% 10ML INJ IV PRN ×2 (22:01→22:28)
[2022-02-24] MEDS ORDERED: ONDANSETRON 4 MG/2 ML VIAL IV PRN (22:28)
[2022-02-24] MEDS: METRONIDAZOLE 500mg IVPB 500 MG/100 ML BAG IV SCH (22:28)
[2022-02-24] MEDS: NA CHLORIDE 0.9% 1,000 ML IV SCH (22:28)
[2022-02-24] MEDS: CEFTRIAXONE 1,000 MG in NA CHLORIDE 0.9% 50 ML IVPB SCH (22:28)
[2022-02-24] MEDS ORDERED: ACETAMINOPHEN 325 MG TABLET PO PRN (22:28)
[2022-02-24 23:11] VITALS: BMI 22.1
[2022-02-25 04:08] LABS: Absolute Lymphocytes (CBC) 1.1 K/uL (0.7-4.9); Hematocrit 24.4 % (36.0-45.0); Lymphocytes % 10.2 % (15.3-44.8); MCV 93.7 fL (80-100); MPV 9.2 fL (7.6-11.3); RBC Red Blood Cell Count 2.61 M/uL (3.86-4.86)
[2022-02-25 04:30] LABS: Potassium 3.5 mmol/L (3.5-5.1)
[2022-02-25] MEDS: NA CHLORIDE 0.9% 1,000 ML IV SCH ×2 (08:28→18:02)
[2022-02-25] MEDS ORDERED: CEFTRIAXONE 1000 MG/VIAL ONE (08:48)
[2022-02-25] MEDS ORDERED: PANTOPRAZOLE 40 MG INJ ONE (08:48)
[2022-02-25] MEDS: METRONIDAZOLE 500mg IVPB 500 MG/100 ML BAG IV SCH ×2 (08:48→18:01)
[2022-02-25] MEDS ORDERED: METRONIDAZOLE 500mg IVPB 500 MG/100 ML BAG IV ONE (08:48)
[2022-02-25] MEDS: PANTOPRAZOLE 40 MG INJ IVP SCH (08:48)
[2022-02-25] MEDS: CEFTRIAXONE 1,000 MG in NA CHLORIDE 0.9% 50 ML IVPB SCH ×2 (08:48→20:46)
[2022-02-25] MEDS ORDERED: NA CHLORIDE 0.9% 1,000 ML ONE (08:49)
[2022-02-25] MEDS ORDERED: PANTOPRAZOLE 40 MG INJ IVP SCH (09:00)
[2022-02-25] MEDS ORDERED: Ringers Lactate 1,000 ML IV ONE (16:12)
[2022-02-25] MEDS ORDERED: propofoL 200 MG/20 ML VIAL IV ONE (16:29)
[2022-02-25] MEDS ORDERED: GOLYTELY 4000 ML PO SCH (17:01)
[2022-02-25] MEDS ORDERED: BISACODYL E.C. 5 MG TAB PO ONE (17:01)
--- NOTE | 2022-02-25 17:03 | ENDO RPT ---
[address], [address] EGD PROCEDURE REPORT EXAM DATE: 02/25/2022 PATIENT NAME: Falguni Marcelino MR#: [id number] BIRTHDATE: 1940 ATTENDING: Malcolm Merino Dr STATUS: inpatient - 7 MARKETING TECHNOLOGY COORDINATOR: Kirsten Tong RN and Gabyb Mcnamara INDICATIONS: The patient is a 81 yr old Female here for an EGD due to melenic bleeding and anemia (hgb 8.7) PROCEDURE PERFORMED: EGD with biopsy MEDICATIONS: Per Anesthesia. TOPICAL ANESTHETIC: none CONSENT: The patient understands the risks and benefits of the procedure and understands that these risks include, but are not limited to: sedation, allergic reaction, infection, perforation and/or bleeding. Alternative means of evaluation and treatment include, among others: physical exam, x-rays, and/or surgical intervention. The patient elects to proceed with this endoscopic procedure. DESCRIPTION OF PROCEDURE: During intra-op preparation period all mechanical medical equipment was checked for proper function. Hand hygiene and appropriate measures for infection prevention was taken. Procedure, possible complications, and alternatives including but not limited to the possibility of bleeding, perforation, tear, infection, sepsis, need for surgery, need for blood transfusion, and anesthesia related complications were explained to the patient. After the risks, benefits and alternatives of the procedure were thoroughly explained, Informed consent was verified, confirmed and timeout was successfully executed by the treatment team. The patient was placed in the left lateral position. The patient was anesthetized with topical anesthesia. Through the anesthetized oropharyngeal area, the scope was passed without any difficulty. The EG-[id number] ([id number]) endoscope was introduced through the mouth and advanced to the third portion of the duodenum. Retroflexed views revealed no abnormalities. The gastroscope was then slowly withdrawn and removed. Mild gastritis was found in the body and the antrum of the stomach. Multiple biopsies were obtained and sent to pathology. An a.v. malformation was found in the body of the stomach. An a.v. malformation was found in the second portion of the duodenum. ADVERSE EVENTS: There were no complications. IMPRESSIONS: 1. Mild gastritis in the body and the antrum of the stomach, s/p biopsies 2. 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 2 mm non-bleeding A.v. malformation in the second portion of the duodenum RECOMMENDATIONS: 1. await biopsy results 2. acid suppression therapy 3. colonoscopy REPEAT EXAM: Malcolm Merino Dr eSigned: Malcolm Merino Dr 02/25/2022 5:03 PM cc: Irwin Corbett CPT CODES: ICD9 CODES: PATIENT NAME: Falguni Marcelino MR#: [id number]
--- NOTE | 2022-02-25 17:04 | P.HP ---
Certification for Inpatient Patient admitted to: Inpatient With expected LOS: >2 Midnights Practitioner: I am a practitioner with admitting privileges, knowledge of patient current condition, hospital course, and medical plan of care. Services: Services provided to patient in accordance with Admission requirements found in Title 42 Section 412.3 of the Code of Federal Regulations Patient History Date of Service: 02/25/22 Reason for admission: GI BLEED, WEAKNESS History of Present Illness: ELHAM HAS BEEN ON TWO ANTIPLATELET AGENTS FOR RECENT STENTS, HAS EPIG PAIN, COMES WITH LOWER GI BLEED AND MELENA. SHE WAS ADMITTED SHE HAD SYMPTOMS FROM ACUTE BLEEED. I TALKED TO DR. ARIAS TO GET SCOPE DONE. HER HG HAS DROPPED TO 8.7 GM. WILL WATCH HER ONE MORE DAY. Allergies codeine Allergy (Mild, Verified 08/06/13 16:03) hyperactivity morphine Allergy (Verified 08/06/13 16:03) swelling to extremities Home medications list reviewed: Yes Home Medications: Losartan Potassium 25 mg PO LUNCH 11/08/18 Metoprolol Tartrate [Lopressor*] 50 mg PO BID 11/08/18 Omeprazole 20 mg PO LUNCH 11/08/18 Topiramate [Topamax*] 25 mg PO BID 11/08/18 Tramadol HCl [Ultram] 50 mg PO BID PRN 11/08/18 Levothyroxine [Synthroid*] 50 mcg PO [id number] 12/09/21 Clopidogrel Bisulfate [Plavix] 75 mg PO DAILY #90 tablet 12/10/21 - Past Medical/Surgical History Has patient received pneumonia vaccine in the past: Yes Diabetic: No -: HTN -: Hypothyroidism -: Osteoporosis -: Lung Cancer -: Diverticulitis -: Appendectomy -: Left Lower Lobectomy -: Hysterectomy -: pessary insertion -: cholecystectomy -: perforated colon sx - Family History Father -: Cancer Notes: lung cancer Mother -: Lung disease, Diabetes Notes: asthma Sister -: Cancer - Social History Smoking Status: Never smoker Alcohol use: No CD- Drugs: No Caffeine use: Yes Review of Systems 10-point ROS is otherwise unremarkable General: Weakness Physical Examination - Vital Signs Temperature: 98.3 F Blood Pressure: 134/63 Pulse: 74 Respirations: 16 Pulse Ox (%): 98 - Physical Exam General: Oriented x3, Mild distress HEENT: Atraumatic, PERRLA, Mucous membr. moist/pink, EOMI, Sclerae nonicteric Neck: Supple, 2+ carotid pulse no bruit, No LAD, Without JVD or thyroid abnormality Respiratory: Clear to auscultation bilaterally, Normal air movement Cardiovascular: Regular rate/rhythm, Normal S1 S2 Gastrointestinal: Normal bowel sounds, No tenderness Musculoskeletal: No tenderness Integumentary: No rashes Neurological: Normal gait, Normal speech, Normal strength at 5/5 x4 extr, Normal tone, Normal affect Lymphatics: No axilla or inguinal lymphadenopathy - Studies Laboratory Data (last 24 hrs) 02/24/22 18:15: PT 10.5, INR 0.96 02/24/22 18:15: WBC 12.80 H, Hgb 9.6 L, Hct 28.6 L, Plt Count 269 02/24/22 18:15: Sodium 137, Potassium 4.1, BUN 44 H, Creatinine 1.89 H, Glucose 106, Lipase 238 Assessment and Plan - Problems (Diagnosis) (1) GI bleed Current Visit: Yes Status: Acute Plan: IV PROTONIX CONSUTL DR. ADAMS EGD TODAY. CHECK C DIFF. (2) Abnormal renal function Onset Date: 07/22/16 Current Visit: No Status: Chronic (3) Coronary arteriography abnormal Current Visit: Yes Status: Chronic Plan: SP STETNS. WITHOUT ASPIRIN AND PLAVIX SHE MAY BLOCK NEEDS TO STOP FOR A FEW DAYS. CONSULTED DR MAXWELL. - Advance Directives Does patient have a Living Will: No Does patient have a Durable POA for Healthcare: No
[2022-02-25] MEDS: METOCLOPRAMIDE 10 MG/2mL INJ IV SCH ×3 (18:00→20:47)
--- NOTE | 2022-02-25 23:48 | CON ---
Date of Consultation: 02/25/2022 Reason For Consultation: Melena and hematochezia with anemia. History Of Present Illness: Patient is an 81-year-old white female with history of hypertension and coronary artery disease, status post 3 stents in December of this year. The patient presented to [facility] with melena, hematochezia, and weakness. She also has some right and left lower quadrant pain, she says maximum it is 9/10 and now it is down to 0. States that this has been off and on recently. Th e melena and hematochezia began approximately 2 days ago. The patient denies any syncope, nausea, vo miting, fevers, chills, diarrhea, constipation, hematemesis, coffee-grounds emesis, hematuria, dysuri a, or polydipsia. Past Medical History: Significant for hypertension, coronary artery disease status post 3 stents on December 24, hypothyroidism, chronic kidney disease stage 3, lung cancer status post left lower lobe re section, hysterectomy, appendectomy, cholecystectomy, diverticulitis with perforated colon requiring colon resection in the past. Allergies: MORPHINE. Medications: See list. Social History: She is a , 4 children. She quit tobacco and alcohol in 1992 with the diagnosis of lung cancer. Family History: Significant for father dying of lung cancer, he was a heavy smoker. Mother of myocardial infarction and was not a smoker. Review of Systems: Patient has melena, hematochezia, right and left lower quadrant pain, but denies any nausea, vomiting , fevers, chills, syncope, chest pain, shortness of breath, seizure, muscle aches, joint aches, backa ches, lower extremity edema, epistaxis, hemoptysis, hematuria, dysuria, or polydipsia. No change in weight. Physical Examination: Vital Signs: The patient is 4 feet 9, 102 pounds, BMI 22 kg/sq m. Temperature 98.3 degrees Fahrenhe it, pulse 74, respirations 16, blood pressure 134/63, O2 saturation 98%. General: She is a normomorphic elderly female, lying in bed, in no acute distress. HEENT: Normocephalic, atraumatic. Anicteric. Pupils equal, round, and reactive to light. Extraocu lar movements intact. Oropharynx clear. Neck: Supple. No masses. Respirations: Clear to auscultation bilaterally. Cardiac: Regular rate and rhythm. No gallop or rub. Abdomen: Positive bowel sounds. Soft, nontender, nondistended. No hepatosplenomegaly. Extremities: No clubbing, cyanosis, or edema. 2+ pulses. Neuro: Alert and oriented x3. Grossly nonfocal. 5/5 motor. Sensation is intact to light touch. Laboratory Data: The patient has a white count of 10.7, down from 12.8 on admission; hemoglobin 8.7; hematocrit 24.4; MCV of 94; platelet count of 221; polys of 70%; lymphocytes 10%; monocytes 8%; eosi nophils 2%. PT of 10.5, INR of 1.0. Sodium 143, potassium 3.5, chloride 109, bicarb 25, BUN of 39, creatinine of 1.72, glucose 122, calcium 8.0. Troponin I 13.7, normal. Lipase normal at 238. UA re veals trace blood, 3+ leukocyte esterase. Serologies: COVID-[address] abdomen and pe lvis reveals no acute finding. Posterior lower right lung field parenchymal opacification is present , post infection scarring possible. Chest x-ray: No acute pulmonary processes. Chronic chest findi ngs stable from comparison. Impression: 1.Melena and hematochezia over 2 days with anemia with hemoglobin of 8.7 with weakness, but no synco pe, nausea, vomiting, fevers, or chills. No change in weight. No diarrhea or constipation. No kinga temesis, hematuria, or epistaxis. 2.Right and left lower quadrant pain, maximum 9/10 and now down to 0. Investigate with colonoscopy in light of negative labs and CT scan. 3.Urinary tract infection, on antibiotics. 4.History of hypertensive, coronary artery disease, cardiac stents in December 2021, hypothyroidism, chr onic kidney disease, lung cancer status post left lower lung lobe resection, hysterectomy, appendecto my, cholecystectomy, diverticulitis, perforated colon requiring resection of multiple feet of colon a ccording to daughter. Recommendations: 1.Serial H and H and transfuse p.r.n. 2.PPI therapy. 3.EGD and colonoscopy. 4.Antibiotic therapy. WS/BARBARAL Voice ID: [id number] Report ID: [id number]
[2022-02-26] MEDS: METOCLOPRAMIDE 10 MG/2mL INJ IV SCH (01:09)
[2022-02-26] MEDS: METRONIDAZOLE 500mg IVPB 500 MG/100 ML BAG IV SCH ×3 (01:10→19:29)
--- NOTE | 2022-02-26 01:24 | CON ---
Date of Consultation: 02/25/2022 Reason For Consultation: Recent coronary artery stent and now she is coming with GI bleed. History Of Present Illness: This is an 81-year-old female well known to me. She does have periphera l vascular disease and also a significant coronary artery disease status post PCI of the RCA. She bailey s moderate LAD disease and tested negative by FFR recently. She is status post PCI in the last month and is doing well. She started having significant melenic stool and GI bleed and dropped her hemogl obin to low 8 level and had an EGD today and planned for a colonoscopy tomorrow. She is known to hav e history of hypertension and dyslipidemia. Patient denies having any chest pain. Past Medical History: As outlined above in the HPI. Medications: Refer to reconciliation sheet for detailed list. Allergies: NO KNOWN DRUG ALLERGIES. Family History: No premature coronary artery disease or cancer. Social History: Does not smoke or drink. Does not use any drugs. Review of Systems: All systems are reviewed and are negative except as mentioned in HPI. Physical Examination: Vital Signs: Reviewed. Head and Neck: Pupils are equal, reactive to light. Intact eye movements. No JVD. No cervical lym phadenopathy. Neck supple. Thyroid is not enlarged. Lungs: Clear to auscultation bilaterally. No rhonchi, rales, or crackles. No accessory muscle use. Heart: Irregular. No extra sounds. Abdomen: Soft, nontender. Bowel sounds positive. No organomegaly. No masses or hernia. No rigidi ty or rebound. Extremities: No edema, clubbing, or cyanosis. Intact pulses. Skin: No rashes. Neurologic: Alert, awake. No acute focal deficits appreciated. Laboratory Data: Labs reviewed. Assessment And Recommendation: 1.Coronary artery disease status post recent stent, now with active gastrointestinal bleed. Plavix was held and aspirin. Awaiting to finalize the workup by GI and I recommend to resume Plavix as soon as feasibly possible and monitor for any chest pain. Discussed with the staff to obtain an EKG imme diately with any chest pain and to keep her on lunchroom monitor while in the hospital and we will re assess and evaluated after the colonoscopy and will discuss with GI. Case was discussed with the doctors' hospital physician, Dr. Corbett. 2.Gastrointestinal bleed. Workup is in the process. 3.Anemia. The patient is known to me to have chronic anemia; however, hemoglobin has dropped furthe r due to gastrointestinal bleed and at this point, they understand that holding the dual antiplatelet can result in acute stent thrombosis; however, we will monitor clinically very closely and we will p dejan to resume dual antiplatelet therapy as soon as the bleeding stops. SR/MODL Voice ID: [id number] Report ID: [id number]
[2022-02-26] MEDS: NA CHLORIDE 0.9% 1,000 ML IV SCH ×2 (04:26→05:27)
[2022-02-26] MEDS ORDERED: GOLYTELY 4000 ML PO ONE (10:00)
[2022-02-26] MEDS: CEFTRIAXONE 1,000 MG in NA CHLORIDE 0.9% 50 ML IVPB SCH ×2 (12:44→20:54)
[2022-02-26] MEDS: PANTOPRAZOLE 40 MG INJ IVP SCH (12:44)
[2022-02-26 14:55] LABS: Absolute Lymphocytes (CBC) 1.1 K/uL (0.7-4.9); Hematocrit 25.7 % (36.0-45.0); Lymphocytes % 9.1 % (15.3-44.8); MCV 97.1 fL (80-100); MPV 9.3 fL (7.6-11.3); RBC Red Blood Cell Count 2.65 M/uL (3.86-4.86)
[2022-02-26 15:00] LABS: Potassium 3.6 mmol/L (3.5-5.1)
[2022-02-26] MEDS ORDERED: Ringers Lactate 1,000 ML IV ONE (16:31)
[2022-02-26] MEDS ORDERED: propofoL 200 MG/20 ML VIAL IV ONE (16:51)
--- NOTE | 2022-02-26 17:28 | ENDO RPT ---
[address], [address] COLONOSCOPY PROCEDURE REPORT EXAM DATE: 02/26/2022 PATIENT NAME: Falguni Marcelino MR #: [id number] BIRTHDATE: 1940 ATTENDING: Malcolm Merino Dr STATUS: outpatient FLAME CHANNELER: Kirsten Tong RN and Marguerite Lainez CST INDICATIONS: The patient is a 81 yr old Female here for a colonoscopy due to hematochezia, melenic bleeding, and anemia PROCEDURE PERFORMED: Colonoscopy MEDICATIONS: Per Anesthesia. ESTIMATED BLOOD LOSS: None CONSENT: The patient understands the risks and benefits of the procedure and understands that these risks include, but are not limited to: sedation, allergic reaction, infection, perforation and/or bleeding. Alternative means of evaluation and treatment include, among others: physical exam, x-rays, and/or surgical intervention. The patient elects to proceed with this endoscopic procedure. DESCRIPTION OF PROCEDURE: During intra-op preparation period all mechanical medical equipment was checked for proper function. Hand hygiene and appropriate measures for infection prevention was taken. Procedure, possible complications, alternatives including, but not limited to possibility of bleeding, perforation, tear, infection, sepsis, need for surgery, need for blood transfusion, were explained to the patient. After the risks, benefits and alternatives of the procedure were thoroughly explained, Informed consent was verified, confirmed and timeout was successfully executed by the treatment team. The patient was placed in the left lateral position. A digital rectal exam was performed and revealed no abnormalities of the rectum. After appropriate level of anesthesia, the scope was passed. The EC-[id number] ([id number]) endoscope was introduced through the anus and advanced to the terminal ileum which was intubated for a short distance. The quality of the prep was good. The instrument was then slowly withdrawn as the colon was fully examined. Scope withdrawal time was 8 minutes. COLON FINDINGS: Mild diverticulosis was noted throughout the entire examined colon. No bleeding was noted from the diverticulosis. Anastomosis in the rectum. Small internal hemorrhoids were found. Retroflexed views revealed small hemorrhoids. No bloodThe scope was then completely withdrawn from the patient and the procedure terminated. ADVERSE EVENTS: There were no complications. IMPRESSIONS: 1. Diverticula scattered sparsely throughout the entire examined colon 2. Anastomosis in the rectum 3. Small internal hemorrhoids 3. Intubation to terminal ileum RECOMMENDATIONS: 1. fiber supplements 2. continue Miralax therapy RECALL: Malcolm Merino Dr eSigned: Malcolm Merino Dr 02/26/2022 5:28 PM cc: Irwin Corbett M.D. CPT CODES: ICD9 CODES: PATIENT NAME: Falguni MarcelinoJaycee MR#: [id number]
--- NOTE | 2022-02-26 19:34 | PN ---
Date of Progress Note: 02/26/2022 Subjective: Seen by bedside, doing clinically very well. No further GI bleed episodes status post E GD, and then, no significant source of bleeding except some erosions. Review of Systems: No chest pain, shortness of breath, orthopnea, cough. No nausea, vomiting, diarrhea. No abdominal p ain. No dysuria, polyuria, or urinary urgency. All other systems reviewed and they are negative. Physical Examination: Vital Signs: Reviewed. Head and Neck: Pupils are equal, reactive to light. Intact eye movements. No JVD. No cervical lym phadenopathy. Neck: Supple. Thyroid is not enlarged. Lungs: Clear to auscultation bilaterally. No rhonchi, wheezing, or crackles. No accessory muscle u se. Heart: Regular rate and rhythm. No extra sounds. Abdomen: Soft, nontender. Bowel sounds positive. No organomegaly. No masses or hernia. No rigidi ty or rebound. Extremities: No edema, clubbing, cyanosis. Intact pulses. Skin: No rashes. Neurologic: Alert, awake. No acute deficit appreciated. Investigations: Creatinine 1.16, BUN 15. Hemoglobin is 8.6. Assessment And Recommendations: 1.Coronary artery disease, status post recent cardiac stent placement. Off the dual antiplatelet. Discussed further with GI. She is having colonoscopy today. If there is no active source of bleedin g found, we will plan to restart Plavix later today and observe in the hospital. 2.Acute renal failure from dehydration. This is restored to fluid management. 3.Anemia due to GI blood loss and hemoglobin stable and transfusion was not needed. The patient is being followed by GI to evaluate the source of bleeding. SR/MODL Voice ID: [id number] Report ID: [id number]
[2022-02-27] MEDS: METRONIDAZOLE 500mg IVPB 500 MG/100 ML BAG IV SCH ×2 (01:29→08:34)
[2022-02-27] MEDS: CEFTRIAXONE 1,000 MG in NA CHLORIDE 0.9% 50 ML IVPB SCH (08:03)
[2022-02-27] MEDS: PANTOPRAZOLE 40 MG INJ IVP SCH (08:03)
[2022-02-27 08:11] VITALS: BP 159/67; TEMP 97.3
[2022-02-27 08:58] VITALS: O2SAT 98
--- NOTE | 2022-02-27 15:04 | P.DS ---
Admission Date: 02/26/22 Discharge Date: 02/27/22 Disposition: ROUTINE DISCHARGE Discharge Condition: FAIR Reason for Admission: GI BLEED, WEAKNESS - Problems (1) GI bleed Status: Acute (2) Abnormal renal function Onset Date: 07/22/16 Status: Chronic (3) Coronary arteriography abnormal Status: Chronic Brief History of Present Illness: ELHAM HAS BEEN ON TWO ANTIPLATELET AGENTS FOR RECENT STENTS, HAS EPIG PAIN, COMES WITH LOWER GI BLEED AND MELENA. SHE WAS ADMITTED SHE HAD SYMPTOMS FROM ACUTE BLEEED. I TALKED TO DR. ARIAS TO GET SCOPE DONE. HER HG HAS DROPPED TO 8.7 GM. WILL WATCH HER ONE MORE DAY. Hospital Course: ELHAM HAS IMPROVED AND STABLE. SHE IS NOT BLEEDING ANY LONGER. HG IS STABLE. SHE HAS ANGIODYSPLASIA. I CALLED DR GOODE AND DR. MAXWELL. SHE WILL BLEED AGAIN WITH PLAVIX BUT HAS NO CHOICE SHE HAS TO BACK ON IT. SHE AND DAUGHTER ARE AWARE THAT THERE IS RISK OF BLEEDING AGAIN BUT ALSO WE CAN'T LET THE STENT CLOSE. DR THOMAS HAS AGREED TO STOP ASPIRIN AND CONTINUE ONLY PLAVIX. SHE KNOWS TO CHECK CBC EVERY WEEK AT MY OFFICE TO WATCH HG Vital Signs/Physical Exam: Temp Pulse Resp BP Pulse Ox 97.3 F 88 18 159/67 H 98 02/27/22 08:00 02/27/22 08:00 02/27/22 08:00 02/27/22 08:00 02/27/22 08:00 Laboratory Data at Discharge: WBC 11.60 K/uL (4.3-10.9) H 02/26/22 14:32 Hgb 8.6 g/dL (12.0-15.0) L 02/26/22 14:32 Hct 25.7 % (36.0-45.0) L 02/26/22 14:32 Plt Count 245 K/uL (152-406) 02/26/22 14:32 PT 10.5 SECONDS (9.5-12.5) 02/24/22 18:15 INR 0.96 02/24/22 18:15 Sodium 142 mmol/L (136-145) 02/26/22 14:32 Potassium 3.6 mmol/L (3.5-5.1) 02/26/22 14:32 BUN 15 mg/dL (7-18) 02/26/22 14:32 Creatinine 1.16 mg/dL (0.55-1.3) 02/26/22 14:32 Glucose 102 mg/dL (74-106) 02/26/22 14:32 Lipase 238 U/L (73-393) 02/24/22 18:15 Home Medications: Losartan Potassium 25 mg PO LUNCH 11/08/18 Metoprolol Tartrate [Lopressor*] 50 mg PO BID 11/08/18 Omeprazole 20 mg PO LUNCH 11/08/18 Topiramate [Topamax*] 25 mg PO BID 11/08/18 Tramadol HCl [Ultram] 50 mg PO BID PRN 11/08/18 Levothyroxine [Synthroid*] 50 mcg PO [id number] 12/09/21 Clopidogrel Bisulfate [Plavix*] 75 mg PO DAILY #90 tablet 12/10/21 Followup: Irwin Corbett MD [Primary Care Provider] - Malcolm Merino MD [ASSOCIATE-ACTIVE - CAN ADMIT] - (GI doctor- call to schedule an appointment)
--- NOTE | 2022-02-28 14:17 | EKG ---
Test Date: 2022-02-24 Test Time: 20:19:18 Humane Agent: SOCO MEASUREMENT RESULTS: Intervals: Rate: 80 AK: 134 QRSD: 80 QT: 410 QTc: 472 [place]: P: 70 AK: 134 QRS: 14 T: 6 INTERPRETIVE STATEMENTS: Normal sinus rhythm Normal ECG Compared to ECG 12/21/2021 18:47:41 Sinus arrhythmia no longer present Ventricular premature complex(es) no longer present Right-axis deviation no longer present Myocardial infarct finding no longer present Electronically Signed On 02-28-22 14:13:51 CDT by Dae Weaver
== END 2022-02-27 10:17 | disposition home or self-care (01) | DRG 378 ==
LOC: ER 15:04 → ERHOLD 19:04 → 4TH 02-25 14:38 → OBSVTOIN 02-26 09:57
PROVIDERS: ADMIT Internal Medicine; ATTEND Internal Medicine
PROC: 0DB78ZX Excision of Stomach, Pylorus, Via Natural or Artificial Opening Endoscopic, Diagnostic (ICD-10-PCS; principal; 2022-02-25 16:00)
PROC: 0DJD8ZZ Inspection of Lower Intestinal Tract, Via Natural or Artificial Opening Endoscopic (ICD-10-PCS; 2022-02-26)
DX: K31.811 Angiodysplasia of stomach and duodenum with bleeding (principal); N17.9 Acute kidney failure, unspecified; K29.71 Gastritis, unspecified, with bleeding; I12.9 Hypertensive chronic kidney disease with stage 1 through stage 4 chronic kidney disease, or unspecified chronic kidney disease; N18.9 Chronic kidney disease, unspecified; D63.1 Anemia in chronic kidney disease; E03.9 Hypothyroidism, unspecified; E78.5 Hyperlipidemia, unspecified; E86.0 Dehydration; K64.8 Other hemorrhoids; K63.89 Other specified diseases of intestine; K57.31 Diverticulosis of large intestine without perforation or abscess with bleeding; I73.9 Peripheral vascular disease, unspecified; R94.4 Abnormal results of kidney function studies; Z88.5 Allergy status to narcotic agent; Z95.5 Presence of coronary angioplasty implant and graft; Z79.02 Long term (current) use of antithrombotics/antiplatelets; Z90.49 Acquired absence of other specified parts of digestive tract; Z85.118 Personal history of other malignant neoplasm of bronchus and lung; Z90.710 Acquired absence of both cervix and uterus; Z79.890 Hormone replacement therapy; Z20.822 Contact with and (suspected) exposure to COVID-19
CPT/HCPCS: 36415; 71045; 74176; 80048; 81003; 83690; 84484; 85025; 85610; 86850; 86900; 86901; 87811; 88305; 88312; 93005; 99283; C9113; G0378; J2704; J2765; J7030; J7120

== ENCOUNTER 2023-01-16 13:47 | Emergency (ER) | payer OTHER ==
--- OUTSIDE RECORDS SUMMARY | 2023-01-16 13:56 | XMS REPORT | Continuity of Care Document ---
:1940 Author Organization [facility] t Address [address] [facility] [address] [place] [address] Care Team Providers Name Role Phone DINORAH CORBETT Primary Care Physician Unavailable Rojelio Gille Brionna Attending Clinician Unavailable RADIOLOGY Attending Clinician Unavailable Radiology Attending Clinician Unavailable Doctor Unassigned, [place] Attending Clinician Unavailable GC_SWHAWPRC_Lotze_P Attending Clinician Unavailable ARLETTE ALEXANDER Attending Clinician Unavailable Lane Corbin Attending Clinician Unavailable Bhavana Sánchez Attending Clinician [phone] Polo GEE, Jenni Carter Attending Clinician Unavailable Lab, Adc Fam Pob I Attending Clinician Unavailable BENY MOON Attending Clinician Unavailable Provider, [facility] Attending Clinician Unavailable DEMOND GAMEZ Attending Clinician Unavailable Paola Sanju X Admitting Clinician Unavailable DINORAH CORBETT Admitting Clinician Unavailable GC_SWHAWPRC_Lotze_P Admitting Clinician Unavailable Lane Corbin Admitting Clinician Unavailable Payers Payer Name Policy Type Policy Number Effective Date Expiration Date Ene billy MEDICARE PART A [id number] 2004 \\T\\ B 00:00:00 MEDICARE B-[place]: [id number] 2004 NOVShaser SOLUTIONS 00:00:00 Problems Condition Condition Condition Status Onset Resolution Last Treating Co mments Source Name Details Category Date Date Treatment Clinician Date Headache Headache Problem Active [facility] 3-25 Medical 00:00: 00 Prolapse Prolapse Problem Active [facility] of vaginal of Vaginal 11-11 Me dical vault Vault 00:00: after after 00 hysterecto Hysterecto my my Atrophic Atrophic Problem Active [facility] vaginitis Vaginitis 11-11 Medi kaci 00:00: 00 Urinary Urinary Problem Active [facility] tract Tract Medical infectious Infectious disease Disease Vaginitis Vaginitis Problem Active Veronica via and and Medical vulvovagin Vulvovagin itis itis Leukorrhea Leukorrhea Problem Active P [facility] Medical No known No known Disease Unive rs active active ity of problems problems [place] [facility] [place] Allergies, Adverse Reactions, Alerts Allergy Allergy Status Severity Reaction(s) Onset Inactive Treating Comm ents Source Name Type Date Date Clinician morphine DA Active SV [facility]ASH [facility] 712 Clear 00:00: [place] 00 [facility] MORPHINE DRUG Active Unknown-Cmnt Un aurora INGREDI 11-09 ity of 00:00: [place] 00 Medical Branch Morphine Propensi Active Unknown - Uni vers ty to See comments 11-09 ity of adverse 00:00: [place] reaction 00 Medical s Branch Morphine Propensi Active Method i ty to [address] adverse 00:00: Hospita reaction 00 l s to drug Codeine Allergy Active [facility] to 1-22 Medical substanc 00:00: e 00 Morphine Allergy Active [facility] to Medical substanc e Family History Family Member Diagnosis Comments Start Date Stop Date Source Natural brother [facility] Maternal grandmother Aneurysm [facility] Natural mother [facility] Social History Social Habit Start Date Stop Date Quantity Comments Source Gender identity [facility] Sexual orientation [facility] History of Social 2021-12-28 2021-12-[address] function 00:00:00 00:00:00 Hospital Alcohol intake 2021-12-28 2021-12-28 Ex-drinker [facility] 00:00:00 00:00:00 (finding) Hospital Tobacco use and 2018-11-09 2018-11-09 Smokeless [facility] exposure 00:00:00 00:00:00 tobacco non-user [facility] Sex Assigned At [birth year] [facility] 00:00:00 00:00:00 Hospital Smoking Status Start Date Stop Date Source Never smoked tobacco [facility]spital Medications Ordered Filled Start Stop Current Ordering Indication Dosage Frequency Signature Comments Components Source Medication Medication Date Date Medication? Clinician (SIG) Name Name levothyroxi Yes 50ug QD Take 50 Met hodi ne 7-[address] (SYNTHROID) 09:11: mouth Hospi ta 50 mcg 49 daily. l tablet metoprolol Yes 50mg Take 50 mg M ethodi tartrate 7-[address] (LOPRESSOR) 09:11: Hospit a 50 mg 49 l tablet omeprazole Yes 20mg QD Take 20 mg M ethodi (PriLOSEC) -[address] 20 MG 09:11: daily. Hospita capsule 49 l topiramate Yes 25mg Q.5D Take 25 mg M ethodi (TOPAMAX) 7-[address] 25 MG 09:11: (two) Hospita tablet 49 times a l day. traMADoL [place] [id number] 50mg Q.5D Take 50 mg Me thodi (ULTRAM) 50 7-[address] mg tablet 09:11: (two) Hospita 49 times a l day as needed for moderate pain .acute pain. raloxifene Yes 60mg QD Take 60 mg M ethodi HCl -[address] (RALOXIFENE 09:11: daily. Hosp paulina ORAL) 49 l losartan 0 Yes 25mg QD Take 25 mg Met hodi (COZAAR) 25 7-[address] MG tablet 09:11: daily. Hospit a 49 l clopidogreL 0 Yes 75mg QD Take 75 mg Methodi (PLAVIX) 75 -[address] mg tablet 09:11: daily. Hospit a 49 l atorvastati Yes 40mg QD Take 40 mg Methodi n (LIPITOR) -[address] 40 mg 09:11: daily. Hospita tablet 49 l aspirin 0 Yes 81mg QD Take 81 mg Meth kymberly (ECOTRIN) 7-[address] 81 MG 09:11: daily. Hospita enteric 49 l coated tablet levothyroxi Yes Take by Uni vers ne sodium 7-20 mouth. ity of (LEVOTHYROX 17:27: [place] INE ORAL) 57 Medical Branch trazodone 2019 Yes Take by Unive rs HCl 7-20 mouth. ity of (TRAZODONE 17:27: [place] ORAL) 57 Medical Branch levothyroxi 0 Yes Take by Uni vers ne sodium 7-20 mouth. ity of (LEVOTHYROX 17:27: [place] INE ORAL) 57 Medical Branch trazodone Yes Take by Unive rs HCl 7-20 mouth. ity of (TRAZODONE 17:27: [place] ORAL) 57 Medical Branch Calcium-Cho Yes calcium Uni vers lecalcifero 7-20 600 mg ity of l, D3, 17:25: tablet 1 [place] (CALCIUM 54 tablet Medical 600 + D) with Branch 600-125 meals, 600 mg-unit Tab MG, Twice a day metoprolol Yes metoprolol U nivers tartrate 7-20 tartrate ity of 100 mg 17:25: [place] tablet 54 Medical Branch omeprazole Yes omeprazole U nivers 20 mg 7-20 20 mg ity of capsule 17:25: capsule,de [place] 54 layed Medical release Branch polyethylen Yes Miralax Uni vers e glycol 7-20 PRN ity of (MIRALAX) 17:25: [place] [id number] 54 Medical gram/dose Branch powder Calcium-Cho Yes calcium Uni vers lecalcifero 7-20 600 mg ity of l, D3, 17:25: tablet 1 [place] (CALCIUM 54 tablet Medical 600 + D) with Branch 600-125 meals, 600 mg-unit Tab MG, Twice a day metoprolol Yes metoprolol U nivers tartrate 7-20 tartrate ity of 100 mg 17:25: [place] tablet 54 Medical Branch omeprazole Yes omeprazole U nivers 20 mg 7-20 20 mg ity of capsule 17:25: [place],de [place] 54 layed Medical release Branch polyethylen Yes Miralax Uni vers e glycol 7-20 PRN ity of (MIRALAX) 17:25: [place] 17 54 Medical gram/dose Branch powder acetaminoph Yes [id number] /2 - 1 Univers en-codeine 7-20 tab Every ity of 300-30 mg 00:00: 4hrs as [place] tablet 00 needed for Medical pain or Branch cough requiring narcotic acetaminoph Yes [id number] 06/06 Univers en-codeine 7-20 tab Every ity of 300-30 mg 00:00: 4hrs as [place] tablet 00 needed for Medical pain or Branch cough requiring narcotic estradiol 2014-06 Yes Estrace Unive rs (ESTRACE) 0-09 0.01% (0.1 ity of 0.01 % (0.1 00:00: mg/gram[place] mg/gram[place] 00 vaginal Medical vaginal cream as Branch cream directed, 0.1 MG/GM, 1 gram per vagina 2 x/week, 90 days estradiol 2014-06 Yes Estrace Unive rs (ESTRACE) 0-09 0.01% (0.1 ity of 0.01 % (0.1 00:00: mg/gram) [place] mg/gram) 00 vaginal Medical vaginal cream as Branch cream directed, 0.1 MG/GM, 1 gram per vagina 2 x/week, 90 days albuterol albuterol No albuterol [facility] sulfate 2.5 sulfate 2.5 sulfate Medical mg/3 mL mg/3 mL 2.5 mg/3 (0.083 %) (0.083 %) mL (0.083 solution solution %) for for solution nebulizatio nebulizatio for n INHALE n INHALE nebulizati ONE VIAL ONE VIAL on INHALE VIA VIA ONE VIAL NEBULIZATIO NEBULIZATIO VIA N ROUTE N ROUTE NEBULIZATI EVERY 8 EVERY 8 ON ROUTE HOURS HOURS EVERY 8 NEEDED NEEDED HOURS NEEDED albuterol albuterol No albuterol [facility] sulfate HFA sulfate HFA sulfate Medical 90 90 HFA 90 mcg/actuati mcg/actuati mcg/actuat on aerosol on aerosol ion inhaler inhaler aerosol inhaler amoxicillin amoxicillin No amoxicilli [facility] 500 500 n 500 Medical mg-potassiu mg-potassiu mg-potassi m m um clavulanate clavulanate clavulanat 125 mg 125 mg e 125 mg tablet tablet tablet atorvastati atorvastati No atorvastat [facility] n 40 mg n 40 mg in 40 mg Medic al tablet tablet tablet bromphenira bromphenira No bromphenir [facility] mine-pseudo mine-pseudo amine-pseu Medical ephedrine-D ephedrine-D doephedrin M 2 mg-30 M 2 mg-30 e-DM 2 mg-10 mg/5 mg-10 mg/5 mg-30 mL oral mL oral mg-10 mg/5 syrup syrup mL oral syrup calcium 600 calcium 600 No calcium [facility] mg tablet 1 mg tablet 1 600 mg Medical tablet with tablet with tablet 1 meals, 600 meals, 600 tablet MG, Twice a MG, Twice a with day day meals, 600 MG, Twice a day cefpodoxime cefpodoxime No cefpodoxim [facility] 100 mg 100 mg e 100 mg Medical tablet TAKE tablet TAKE tablet 1 TABLET BY 1 TABLET BY TAKE 1 MOUTH EVERY MOUTH EVERY TABLET BY 12 HOURS 12 HOURS MOUTH FOR 10 FOR 10 EVERY 12 DAYS. TAKE DAYS. TAKE HOURS FOR WITH FOOD WITH FOOD 10 DAYS. TAKE WITH FOOD cefuroxime cefuroxime No cefuroxime [facility] axetil 250 axetil 250 axetil 250 Medical mg tablet mg tablet mg tablet cephalexin cephalexin No cephalexin [facility] 500 mg 500 mg 500 mg Medical capsule capsule capsule ciprofloxac ciprofloxac No ciprofloxa [facility] in 250 mg in 250 mg liset 250 mg Medical tablet tablet tablet clopidogrel clopidogrel No clopidogre [facility] 75 mg 75 mg l 75 mg Medical tablet tablet tablet Durezol Durezol No Durezol [facility] 0.05 % eye 0.05 % eye 0.05 % eye Medical drops drops drops estradiol estradiol No estradiol [facility] 0.01% (0.1 0.01% (0.1 0.01% (0.1 Medical mg/gram) mg/gram) mg/gram) vaginal vaginal vaginal cream APPLY cream APPLY cream 1 GRAM 1 GRAM APPLY 1 VAGINALLY VAGINALLY GRAM EVERY NIGHT EVERY NIGHT VAGINALLY AT BEDTIME AT BEDTIME EVERY FOR 2 WEEKS FOR 2 WEEKS NIGHT AT THEN TWICE THEN TWICE BEDTIME A WEEK A WEEK FOR 2 WEEKS THEN TWICE A WEEK ferrous ferrous No ferrous [facility] gluconate gluconate gluconate Medical 324 mg (38 324 mg (38 324 mg (38 mg iron) mg iron) mg iron) tablet tablet tablet fluconazole fluconazole No fluconazol [facility] 100 mg 100 mg e 100 mg Medical tablet tablet tablet furosemide furosemide No furosemide [facility] 40 mg 40 mg 40 mg Medical tablet tablet tablet gabapentin gabapentin No gabapentin [facility] 100 mg 100 mg 100 mg Medical capsule capsule capsule ID NOW ID NOW No ID NOW [facility] COVID-19 COVID-19 COVID-19 Med ical Test Kit Test Kit Test Kit TEST TEST TEST DIRECTED DIRECTED DIRECTED TODAY TODAY TODAY levetiracet levetiracet No levetirace [facility] am 500 mg am 500 mg black 500 mg Medical tablet tablet tablet levothyroxi levothyroxi No levothyrox [facility] ne 50 mcg ne 50 mcg ine 50 mcg Medical tablet tablet tablet losartan 25 losartan 25 No losartan [facility] mg tablet mg tablet 25 mg Medi kaci tablet meclizine meclizine No meclizine [facility] 25 mg 25 mg 25 mg Medical tablet tablet tablet metoprolol metoprolol No metoprolol [facility] tartrate 50 tartrate 50 tartrate Medical mg tablet mg tablet 50 mg tablet metronidazo metronidazo No metronidaz [facility] le 500 mg le 500 mg ole 500 mg Medical tablet tablet tablet omeprazole omeprazole No omeprazole [facility] 20 mg 20 mg 20 mg Medical capsule,del capsule,del capsule,de ayed ayed layed release release release oseltamivir oseltamivir No oseltamivi [facility] 75 mg 75 mg r 75 mg Medical capsule capsule capsule potassium potassium No potassium [facility] chloride ER chloride ER chloride Medical 10 mEq 10 mEq ER 10 mEq tablet,exte tablet,exte tablet,ext nded nded ended release release release prednisone prednisone No prednisone [facility] 10 mg 10 mg 10 mg Medical tablet tablet tablet Prolia 60 Prolia 60 No Prolia 60 [facility] mg/mL mg/mL mg/mL Medical subcutaneou subcutaneou subcutaneo s syringe s syringe us syringe raloxifene raloxifene No raloxifene [facility] 60 mg 60 mg 60 mg Medical tablet tablet tablet SSD 1 % SSD 1 % No SSD 1 % [facility] topical topical topical Medica l cream cream cream sulfamethox sulfamethox No sulfametho [facility] azole 800 azole 800 xazole 800 Medical mg-trimetho mg-trimetho mg-trimeth prim 160 mg prim 160 mg oprim 160 tablet tablet mg tablet topiramate topiramate No topiramate [facility] 25 mg 25 mg 25 mg Medical tablet tablet tablet tramadol 50 tramadol 50 No tramadol [facility] mg tablet mg tablet 50 mg Medi kaci TAKE 1 TAKE 1 tablet TABLET BY TABLET BY TAKE 1 MOUTH TWICE MOUTH TWICE TABLET BY DAILY DAILY MOUTH NEEDED FOR NEEDED FOR TWICE PAIN PAIN DAILY NEEDED FOR PAIN trazodone trazodone No trazodone [facility] 100 mg 100 mg 100 mg Medical tablet tablet tablet Trelegy Trelegy No Trelegy [facility] Ellipta 100 Ellipta 100 Ellipta Medical mcg-62.5 mcg-62.5 100 mcg-25 mcg mcg-25 mcg mcg-62.5 powder for powder for mcg-25 mcg inhalation inhalation powder for inhalation calcium 600 calcium 600 No calcium [facility] mg tablet 1 mg tablet 1 600 mg Medical tablet with tablet with tablet 1 meals, 600 meals, 600 tablet MG, Twice a MG, Twice a with day day meals, 600 MG, Twice a day cephalexin cephalexin No cephalexin [facility] 500 mg 500 mg 500 mg Medical capsule capsule capsule ciprofloxac ciprofloxac No ciprofloxa [facility] in 250 mg in 250 mg liset 250 mg Medical tablet tablet tablet clopidogrel clopidogrel No clopidogre [facility] 75 mg 75 mg l 75 mg Medical tablet tablet tablet Durezol Durezol No Durezol [facility] 0.05 % eye 0.05 % eye 0.05 % eye Medical drops drops drops estradiol estradiol No estradiol [facility] 0.01% (0.1 0.01% (0.1 0.01% (0.1 Medical mg/gram) mg/gram) mg/gram) vaginal vaginal vaginal cream APPLY cream APPLY cream 1 GRAM 1 GRAM APPLY 1 VAGINALLY VAGINALLY GRAM EVERY NIGHT EVERY NIGHT VAGINALLY AT BEDTIME AT BEDTIME EVERY FOR 2 WEEKS FOR 2 WEEKS NIGHT AT THEN TWICE THEN TWICE BEDTIME A WEEK A WEEK FOR 2 WEEKS THEN TWICE A WEEK gabapentin gabapentin No gabapentin [facility] 100 mg 100 mg 100 mg Medical capsule capsule capsule levetiracet levetiracet No levetirace [facility] am 500 mg am 500 mg black 500 mg Medical tablet tablet tablet levothyroxi levothyroxi No levothyrox [facility] ne 50 mcg ne 50 mcg ine 50 mcg Medical tablet tablet tablet losartan 25 losartan 25 No losartan [facility] mg tablet mg tablet 25 mg Medi kaci tablet metoprolol metoprolol No metoprolol [facility] tartrate 50 tartrate 50 tartrate Medical mg tablet mg tablet 50 mg tablet omeprazole omeprazole No omeprazole [facility] 20 mg 20 mg 20 mg Medical capsule,del capsule,del capsule,de ayed ayed layed release release release prednisone prednisone No prednisone [facility] 10 mg 10 mg 10 mg Medical tablet tablet tablet Prolia 60 Prolia 60 No Prolia 60 [facility] mg/mL mg/mL mg/mL Medical subcutaneou subcutaneou subcutaneo s syringe s syringe us syringe raloxifene raloxifene No raloxifene [facility] 60 mg 60 mg 60 mg Medical tablet tablet tablet SSD 1 % SSD 1 % No SSD 1 % [facility] topical topical topical Medica l cream cream cream sulfamethox sulfamethox No sulfametho [facility] azole 800 azole 800 xazole 800 Medical mg-trimetho mg-trimetho mg-trimeth prim 160 mg prim 160 mg oprim 160 tablet tablet mg tablet topiramate topiramate No topiramate [facility] 25 mg 25 mg 25 mg Medical tablet tablet tablet tramadol 50 tramadol 50 No tramadol [facility] mg tablet mg tablet 50 mg Medi kaci TAKE 1 TAKE 1 tablet TABLET BY TABLET BY TAKE 1 MOUTH TWICE MOUTH TWICE TABLET BY DAILY DAILY MOUTH NEEDED FOR NEEDED FOR TWICE PAIN PAIN DAILY NEEDED FOR PAIN trazodone trazodone No trazodone [facility] 100 mg 100 mg 100 mg Medical tablet tablet tablet Immunizations Ordered Filled Immunization Date Status Comments [facility] e Immunization Name Name [facility] 2020-01-04 Completed [facility] 00:00:00 [facility] 2020-01-04 [facility] 00:00:00 [facility] Vital Signs Vital Name Observation Time Observation Value Comments Source BP Diastolic 2022-04-05 00:00:00 76 mm[Hg] Fidelina Delgado edical Height 2022-04-05 00:00:00 59 [in_i] Fidelina Delgado edical BMI (Body Mass Index) 2022-04-05 00:00:00 21.4 kg/m2 [facility] BP Systolic 2022-04-05 00:00:00 163 mm[Hg] Fidelina Delgado edical Body Weight 2022-04-05 00:00:00 106 [lb_av] Fidelina Delgado edical BP Diastolic 2021-10-01 00:00:00 90 mm[Hg] Fidelina Delgado edical Height 2021-10-01 00:00:00 59 [in_i] Fidelina Delgado edical BMI (Body Mass Index) 2021-10-01 00:00:00 21.6 kg/m2 [facility] BP Systolic 2021-10-01 00:00:00 147 mm[Hg] Fiedlina Delgado edical Body Weight 2021-10-01 00:00:00 107 [lb_av] Fidelina Delgado edical Procedures Procedure Date / Time Performed Performing Clinician [facility] e ASSIGNMENT OF BENEFITS 2022-06-17 16:32:24 Doctor Unassigned, No [facility] [id number] 2022-01-16 00:00:00 [facility] Clear [facility] [id number] 2022-01-12 00:00:00 [facility] [id number] 2022-01-12 00:00:00 [facility] [id number] 2022-01-12 00:00[facility] Clear [facility] [id number] 2022-01-12 00:00:00 [facility] Clear [facility] [id number] 2022-01-12 00:00:00 [facility] [id number] 2022-01-12 00:00:00 [facility] [id number] 2022-01-12 00:00:00 [facility] [id number] 2022-01-12 00:00:00 [facility] [id number] 2022-01-12 00:00:00 [facility] Clear [facility] Plan of Care Planned Activity Planned Date Details Comments Source Future Scheduled 2023-01-12 SHINGLES VACCINES (1 Met [facility] [place] [facility] Test 01:46:11 of 2) [code = SHINGLES VACCINES (1 of 2)] Future Scheduled 2023-01-12 65+ [facility]OCOCCAL [facility] Test 01:46:11 VACCINE (1 - PCV) [code = 65+ PNEUMOCOCCAL VACCINE (1 - PCV)] Future Scheduled 2023-01-12 COVID-19 VACCINE (3 - [facility] [place] [facility] Test 01:46:11 Moderna series) [code = COVID-19 VACCINE (3 - Moderna series)] Future Scheduled 2023-01-12 INFLUENZA VACCINE Method [facility] Hospital Test 01:46:11 [code = INFLUENZA VACCINE] Encounters Start End Encounter Admission Attending Care Care Encounter Source Date/Time Date/Time Type Type Clinicians Facility Department ID 2022-01-13 Inpatient REGINE Gupta INTE [id number] [facility] 14:20:00 Sanju [id number] [facility] 2022-01-12 Inpatient REGINE Gupta INTE [id number] [facility] 14:18:00 Sanju [id number] [facility] 2021-04-05 Emergency [facility] [id number] Univers 06:18:13 ity of [facility] 2021-04-04 Emergency [facility] [id number] Univers 11:05:45 ity [facility] 2022-06-17 2022-06-17 Outpatient R RADIOLOGY [facility] [id number] Univers 10:32:59 23:59:00 ity of [facility] 2022-06-17 2022-06-17 Hospital Radiology [facility] [id number] Univers 10:32:59 23:59:00 Encounter [place] [id number] ity of [place] 4.2.7.2.686 [facility] [id number] [facility] 800 Branch 2022-06-17 2022-06-17 Orders Doctor SHARLA [id number] Univers 00:00:00 00:00:00 Only Unassigned, [place] [id number] ity of [place] [facility] 4.2.7.2.686 Jordin [id number] [facility] 009 Branch 2022-04-29 2022-04-29 [facility] [id number] [facility] 00:00:00 00:00:00 _Lotze_P [id number] Medic al 2022-04-05 2022-04-05 [facility] PR[facility] [id number] [facility] 00:00:00 00:00:00 _Lotze_P [id number] Medic al 2022-04-05 2022-04-05 Bhavana [facility] - [facility] [id number] [facility] 00:00:00 00:00:00 [facility] - Medic madonna Sánchez [facility] CYCLE SPECIALIST: [address], Office* [address], [place] [address] , Ph. [phone] 2022-03-31 2022-03-31 Outpatient GC_SWHAWPRC PRIV PRIV [id number] [facility] 00:00:00 00:00:00 _Lotze_P [id number] Medic al 2022-01-13 2022-01-25 Inpatient LANDRY Gill [facility] INTE [id number] [facility] 14:20:00 17:25:00 Sanju 90 [facility] 2021-12-28 2021-12-28 Outpatient BENJAMIN, [facility] [id number] [address] [place] [address] 00:00:00 00:00:00 ARLETTE [address] 2021-12-15 2021-12-16 Inpatient LANDRY Corbin [facility] INTE.02 [id number] [facility] 05:13:00 16:08:00 [place] 19 [facility] 2021-12-15 2021-12-16 Inpatient LANDRY Corbin [facility] INTE.02 [id number] [facility] 05:13:00 16:08:00 [facility] [id number] [facility] 2021-10-22 2021-10-22 Outpatient GC_SWHAWPRC PRIV PRIV [id number] [facility] 00:00:00 00:00:00 _Lotze_P [id number] Medic al 2021-10-05 2021-10-05 Outpatient GC_SWHAW[facility]C PRIV PRIV [id number] [facility] 05:51:00 05:51:00 _Lotze_P [id number] Medic al 2021-10-01 2021-10-01 Outpatient GC_[facility]WHAWPRC PRIV PRIV [id number] [facility] 10:31:00 10:31:00 _Lotze_P [id number] Medic al 2021-10-01 2021-10-01 Outpatient Sánchez, PRIV PRIV [id number] 00:00:00 00:00:00 Bhavana Mccarthy [id number] 2021-10-01 2021-10-01 Bhavana BYERS [place] - [facility] 00:00:00 00:00:00 Shari [facility] al Gonzalo, _[facility] CYCLE SPECIALIST: [address]* [address], [place] [address] , Ph. [phone] 2021-09-30 2021-09-30 Outpatient [facility] PRIV PRIV [id number] [facility] 05:55:00 05:55:00 _Lotze_P [id number] Medic al 2021-06-04 2021-06-04 Outpatient R RADIOLOGY [facility] [id number] [facility] 09:51:24 23:59:[facility] 2021-05-25 2021-05-25 Outpatient BENJAMIN, [facility] [id number] [place] 00:00:00 00:00:00 ARLETTE [address] 2020-06-04 2020-06-04 Hospital Radiology [facility] [id number] 13:21:40 23:59:00 Encounter [place] [id number] [place] 4.2.7.2.686 [place] [id number] 2020-06-04 2020-06-04 Outpatient R RADIOLOGY [facility] [id number] [facility] 00:00:00 00:00:00 [facility] 2020-06-04 2020-06-04 Orders Doctor SHARLA [id number] 00:00:00 00:00:00 Only Unassigned, [place] [id number] [place] [facility] 4.2.7.2.686 [id number] 2020-02-06 2020-02-06 Letter SHARLA Cuellar [id number] 00:00:00 00:00:00 (Out) Jenni ARNOLD [id number] [facility] 4.2.7.2.686 [id number] 2020-02-04 2020-02-04 Laboratory Lab, [facility] [id number] 14:50:37 15:10:37 Only Fam Pob I Health [id number] [place] 4.2.7.2.686 Professio [id number] nal [address] 2020-02-04 2020-02-04 Outpatient R RAMAZENY, [facility] [id number] Univers 15:00:00 15:00:00 BENY maury [facility] 2020-01-04 2020-01-04 Urgent Provider, [facility] [id number] 14:17:46 15:24:[address] [facility] [id number] Care [place] 4.2.7.2.686 Gab [id number] nal 0[address] 2020-01-04 2020-01-04 Outpatient R ANITASandy, [facility] [id number] Univers 14:20:00 14:20:00 DEMOND maury [facility] 2019-06-03 2019-06-03 Outpatient R RADIOLOGY [facility] [id number] Univers 09:04:21 23:59:00 [facility] Results Test Description Test Time Test Comments Results Result Comments Source HGB HCT 2022-01-25 09:48:00 Test Item Value Reference Range Interpretation Comme nts HEMOGLOBIN (test code = HGB) 8.8 g/dL 11.0-15.0 L HEMATOCRIT (test code = HCT) 27.6 % 33.0-45.0 L BASIC METABOLIC [id number] 08:02:00 Test Item Value Reference Range Interpretation [...] = 6.8 mg/dL 8.0-10.5 L CA) SERUM [id number] 07:46:00 Test Item Value Reference Range Interpretation Comments SERUM IRON (test code = IRON) 52 mcg/dL 35-150 N [id number] 07:46:00 Test Item Value Reference Range Interpretation Comments FERRITIN (test code = MATT) 75.1 ng/mL 11.0-306.8 N CBC W/AUTO [id number] 07:45:00 Test Item Value Reference Range Interpretation [...] (test NO code = MDIFF) BASIC METABOLIC [id number] 05:09:00 Test Item Value Reference Range Interpretation [...] 7.7 mg/dL 8.0-10.5 L CA) CBC W/AUTO [id number] 04:35:00 Test Item Value Reference Range Interpretation [...] (test code NO = MDIFF) CBC W/AUTO [id number] 08:38:00 Test Item Value Reference Range Interpretation [...] REQUIRED (test code NO = MDIFF) HGB [id number] 11:22:00 Test Item Value Reference Range Interpretation Comments HEMOGLOBIN (test code = HGB) 6.8 g/dL 11.0-15.0 L HEMATOCRIT (test code = HCT) 20.8 % 33.0-45.0 L BASIC METABOLIC [id number] 08:34:00 Test Item Value Reference Range Interpretation [...] code = 8.1 mg/dL 8.0-10.5 N CA) [id number] 08:34:00 Test Item Value Reference Range Interpretation Comments PHOSPHOROUS (test code = PHOS) 2.9 MG/DL 2.5-4.9 N [id number] 08:34:00 Test Item Value Reference Range Interpretation Comments MAGNESIUM (test code = MAG) 2.16 mg/dL 1.80-2.40 CALCIUM [id number] 08:34:00 Test Item Value Reference Range Interpretation Comments CALCIUM IONIZED (test code = TOMMY) 1.16 MMOL/L 1.09-1.30 N CBC W/AUTO [id number] 07:31:00 Test Item Value Reference Range Interpretation [...] REQUIRED NO (test code = MDIFF) URINALYSIS [id number] 21:28:00 Test Item Value Reference Range Interpretation [...] = MUCU) TRACE /LPF NONE SEEN HGB [id number] 09:13:00 Test Item Value Reference Range Interpretation Comments HEMOGLOBIN (test code = HGB) 7.4 g/dL 11.0-15.0 L HEMATOCRIT (test code = HCT) 22.7 % 33.0-45.0 L BASIC METABOLIC [id number] 04:58:00 Test Item Value Reference Range Interpretation [...] code = 7.5 mg/dL 8.0-10.5 L CA) [id number] 04:58:00 Test Item Value Reference Range Interpretation Comments PHOSPHOROUS (test code = PHOS) 3.1 MG/DL 2.5-4.9 [id number] 04:58:00 Test Item Value Reference Range Interpretation Comments MAGNESIUM (test code = MAG) 1.73 mg/dL 1.80-2.40 L CALCIUM [id number] 04:58:00 Test Item Value Reference Range Interpretation Comments CALCIUM IONIZED (test code = TOMMY) 1.06 MMOL/L 1.09-1.30 L CBC W/AUTO [id number] 04:38:00 Test Item Value Reference Range Interpretation [...] (test NO code = MDIFF) CBC W/AUTO [id number] 06:23:00 Test Item Value Reference Range Interpretation [...] (test code NO = MDIFF) BASIC METABOLIC [id number] 06:19:00 Test Item Value Reference Range Interpretation [...] code = 7.6 mg/dL 8.0-10.5 L CA) [id number] 06:19:00 Test Item Value Reference Range Interpretation Comments PHOSPHOROUS (test code = PHOS) 1.9 MG/DL 2.5-4.9 L [id number] 06:19:00 Test Item Value Reference Range Interpretation Comments MAGNESIUM (test code = MAG) 1.94 mg/dL 1.80-2.40 N CALCIUM [id number] 06:19:00 Test Item Value Reference Range Interpretation Comments CALCIUM IONIZED (test code = TOMMY) 1.13 MMOL/L 1.09-1.30 N BASIC METABOLIC [id number] 05:54:00 Test Item Value Reference Range Interpretation [...] code = 7.5 mg/dL 8.0-10.5 L CA) [id number] 05:54:00 Test Item Value Reference Range Interpretation Comments PHOSPHOROUS (test code = PHOS) 2.2 MG/DL 2.5-4.9 L [id number] 05:54:00 Test Item Value Reference Range Interpretation Comments MAGNESIUM (test code = MAG) 2.16 mg/dL 1.80-2.40 N CALCIUM [id number] 05:54:00 Test Item Value Reference Range Interpretation Comments CALCIUM IONIZED (test code = TOMMY) 1.04 MMOL/L 1.09-1.30 L CBC W/AUTO [id number] 05:31:00 Test Item Value Reference Range Interpretation [...] (test code NO = MDIFF) BASIC METABOLIC [id number] 06:16:00 Test Item Value Reference Range Interpretation [...] code = 7.5 mg/dL 8.0-10.5 L CA) [id number] 06:16:00 Test Item Value Reference Range Interpretation Comments PHOSPHOROUS (test code = PHOS) 2.8 MG/DL 2.5-4.9 [id number] 06:16:00 Test Item Value Reference Range Interpretation Comments MAGNESIUM (test code = MAG) 2.05 mg/dL 1.80-2.40 N CALCIUM [id number] 06:16:00 Test Item Value Reference Range Interpretation Comments CALCIUM IONIZED (test code = TOMMY) 1.08 MMOL/L 1.09-1.30 L CBC W/AUTO [id number] 05:55:00 Test Item Value Reference Range Interpretation [...] REQUIRED (test code NO = MDIFF) HGB [id number] 13:02:00 Test Item Value Reference Range Interpretation Comments HEMOGLOBIN (test code = HGB) 8.3 g/dL 11.0-15.0 L HEMATOCRIT (test code = HCT) 25.5 % 33.0-45.0 L BASIC METABOLIC [id number] 04:43:00 Test Item Value Reference Range Interpretation [...] code = 7.4 mg/dL 8.0-10.5 L CA) [id number] 04:43:00 Test Item Value Reference Range Interpretation Comments PHOSPHOROUS (test code = PHOS) 3.8 MG/DL 2.5-4.9 N [id number] 04:43:00 Test Item Value Reference Range Interpretation Comments MAGNESIUM (test code = MAG) 1.84 mg/dL 1.80-2.40 N CALCIUM [id number] 04:43:00 Test Item Value Reference Range Interpretation Comments CALCIUM IONIZED (test code = TOMMY) 1.05 MMOL/L 1.09-1.30 L CBC W/AUTO [id number] 04:28:00 Test Item Value Reference Range Interpretation Comments WHITE BLOOD CELL (test 13.2 x10 3/uL 4.5-11.0 H code = WBC) RED BLOOD CELL (test 1.98 x10 6/uL 3.54-5.02 L code = RBC) HEMOGLOBIN (test code 6.1 g/dL 11.0-15.0 LL Critic al result = HGB) called to BRIGIDA Guillaume G.LAB.KAF at 09 3001/17/22Nscarlett r ead back resut and tech confirmed it's [...] REQUIRED NO (test code = MDIFF) - EXTREM NON [facility] [id number] 00:00:00 [facility] 1940 Sex: F Name:FALGUNI AGARWAL [facility] : 1940 Age/S: 81 / F [address] [place] [address] Unit #: [id number] Loc: [place] [address] Phys: Jerry Dotson MD Acct: [id number] Dis Date: Status: ADM IN PHONE #: [phone] Exam Date: 01/17/2022612 FAX #: [phone] Reason: FOLLOWUP ON LEFT GROIN HEMATOMA EXAMS: CPT CODE: [id number] US EXTREM NON VASC COMP 63422 PROCEDURE INFORMATION: Exam: US Left No n-Vascular Joint or Other Extremity Structure Exam date and time: 01/17/2022 5:01 AM Age: 81 years old Clinical indication: Pain; Thigh; Left; Additional info: Followup on left groin hematoma TECHNIQUE:Imaging protocol: Left US joint or other nonvascular extremity structure or structures. Real-time ultrasound with image documentation. Limited study. Exam focused on the lower extremity in the region of clinical interest. COMPARISON: US GUIDANCE VASC ACCESS (PICC) 01/16/2022 1:23 PM Ultrasound examination of the left groin soft tissues: There is a thrombosed pseudoaneurysm from the left common femoralartery measuring 3.3 x 1.2 x 2.2 cm. Flow is not identified within the pseudoaneurysm. Drain is noted in the left groin soft tissues. Monophasic flow is seen in the left common femoral artery and proximal left superficial femoral artery. Elevated velocity is seen in the left proximal superficial femoral artery to 383 cm/s. Impression: 1. 3.3 x 1.2 x 2.2 cm thrombosed pseudoaneurysm from the left common femoral artery as above. 2. 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 3. Elevated velocity left proximal superficial femoral artery suggests focal hemodynamically significant stenosis within that artery. ElectronicallySigned by Geovanna Weiss on 01/17/2022 at 0729 Reported and signed by: Michael Weiss M.D. CC: Sanju Gill MD; Jerry Dotson MD; Dae Weaver MD Technologist: Minerva Perera RDMS(AB)(OB) Trnscb Date/Time: 01/17/2022 (0729) [email or web address] Orig Print D/T: S: 01/17/2022 (0729)Probe: PAGE 1 Signed ReportHGB [id number] 20:01:00 Test Item Value Reference Range Interpretation Comments HEMOGLOBIN (test code = HGB) 7.1 g/dL 11.0-15.0 L HEMATOCRIT (test code = HCT) 21.7 % 33.0-45.0 L BASIC METABOLIC [id number] 05:46:00 Test Item Value Reference Range Interpretation [...] code = 8.1 mg/dL 8.0-10.5 N CA) [id number] 05:46:00 Test Item Value Reference Range Interpretation Comments PHOSPHOROUS (test code = PHOS) 3.8 MG/DL 2.5-4.9 [id number] 05:46:00 Test Item Value Reference Range Interpretation Comments MAGNESIUM (test code = MAG) 2.15 mg/dL 1.80-2.40 CALCIUM [id number] 05:46:00 Test Item Value Reference Range Interpretation Comments CALCIUM IONIZED (test code = TOMMY) 1.09 MMOL/L 1.09-1.30 N CBC W/AUTO [id number] 05:26:00 Test Item Value Reference Range Interpretation [...] code NO = MDIFF) - US GUIDANCE [facility] [id number] 00:00:00 [facility] : 1940 Sex: F Name:FALGUNI AGARWAL [facility] : 1940 Age/S: 81 / F [address] [place] [address] Unit #: [id number] Loc: [place] [address] Phys: Jerry Dotson MD Acct: [id number] Dis Date: Status: ADM IN PHONE#: [phone] Exam Date: 01/16/2022 1414 FAX #: [phone] Reason: Left common femoral artery pseudoaneurysm EXAMS: CPT CODE: [id number] US GUIDANCE [facility] ACCESS [id number] PROCEDURE INFORMATION: Exam: USDuplex Left Lower Extremity Arteries Or Arterial Bypass Grafts Exam date and time: 01/16/2022 1:23 PMAge: 81 years old Clinical indication: Pain: Lt CA / groin pain; Additional info: Left common femoral artery pseudoaneurysm- US guided thrombin injection. TECHNIQUE: Imaging protocol: Left Real-time duplex scan of the arteries or arterial bypass grafts of the left lower extremity with 2-D kennedy scale,color Doppler flow and spectral waveform analysis. Images documented and saved. COMPARISON: 1. US DUP LE ART UNI/LTD 01/12/2022 8:58 PM , CTA abdomen pelvis 01/12/2022, CT left lower extremity 01/16/2022 FINDINGS: The initial images demonstrate a 1.8 x 2 x 2.7 cm pseudoaneurysm extending from the left c ommon femoral artery. The pseudoaneurysm neck is 9 [...] signed by: Jose Knight D.O. CC: Sanju Gill MD; Jerry Dotson MD; Dae Weaver MD Technologist: Rina Wilhelm RDMS() Trnscb Date/Time: 01/16/2022 (1539) t.[email or web address] Orig Print D/T: S: 01/16/2022 (1539) Probe: PAGE 1 Signed Report- CT LOWER EXTRM W/CON [id number] 00:00:00 [facility] : 1940 Sex: F Name:FALGUNI AGARWAL [facility] : 1940 Age/S: 81 / F [address] [place] [address] Unit #: [id number] Loc: [place] [address] Phys: Jerry Dotson MD Acct: [id number] Dis Date: Status: ADM IN PHONE #: [phone] Exam Date: 01/16/2022 0859 FAX #: [phone] Reason: INCREASED SIZE OF HEMATOMA EXAMS: CPT CODE: [id number] CT LOWER EXTRM W/[place] [address] PROCEDURE INFORMATION: Exam: CT Left Lower Extremity [...] 100 ml; Contrast route: INTRAVENOUS (IV); COMPARISON: [employer] UNI/[employer] 01/12/2022 8:58 PM FINDINGS: Tubes, catheters and devices: Pessary device is noted. Bones/joints: Normal.No acute fracture or dislocation. Soft tissues: Since the previous exam, the hematoma in the proximal and medial aspect of the thigh has decreased in size. Thin band of hematoma remains measuring 5.3 x0.7 cm on series 4, image 74. Previously [...] hip and thigh. Soft tissue defect in theanterior aspect of the thigh. Mild intermuscular fascial edema. Vasculature: Atherosclerotic calcifications. Small rounded area of contrast anterior to the left common femoral artery bifurcation slightly increased in size measuring 13 x 12 mm, previously measuring 7 mm. Bowel: Anastomosis in the rectosigmoid colon. Colonic diverticulosis. IMPRESSION: 1. Decreased size and near resolution of previously described hematoma in the superficial soft tissues of the medial aspect of the proximal thigh with drain in place. 2. New nonspecific enlargement and edema within the left adductor PAGE 1 Signed Report (CONTINUED) Name: FALGUNI AGARWAL [facility] : 1940 Age/S: 81 / F [address] [place] [address] Blvd Unit #: [id number] Loc: [place] [address] Phys: Jerry Dotson MD Acct: [id number] Dis Date: Status: ADM IN PHONE #: [phone] Exam Date: 01/16/2022 08 FAX #: [phone] Reason: INCREASED SIZE OF HEMATOMA EXAMS: CPT CODE: [id number] CT LOWER EXTRM W/[place] [address] (Continued) muscles. 3. Slight increased size of possible pseudoaneurysm near the common femoral artery bifurcation. Electron ically Signed by Geovanna Thomason on 01/16/2022 at 1019 Reported and signed by: Faisal Thomason M.D. CC: Sanju Gill MD; Jerry Dotson MD; Dae Weaver MD Technologist:Gerry Bills RT(R)(CT) CTDI: DLP: Trnscb Date/Time: 01/16/2022 (1019) t.SDR.SW20 PAGE 2 Signed ReportPHOSPHOROUS 2022-01-15 06:45:00 Test Item Value Reference Range Interpretation Comments PHOSPHOROUS (test code = PHOS) 1.7 MG/DL 2.5-4.9 L [id number] 06:45:00 Test Item Value Reference Range Interpretation Comments MAGNESIUM (test code = MAG) 1.68 mg/dL 1.80-2.40 L CALCIUM [id number] 06:45:00 Test Item Value Reference Range Interpretation Comments CALCIUM IONIZED (test code = TOMMY) 1.10 MMOL/L 1.09-1.30 N BASIC METABOLIC [id number] 06:45:00 Test Item Value Reference Range Interpretation [...] 7.8 mg/dL 8.0-10.5 L CA) CBC W/AUTO [id number] 06:31:00 Test Item Value Reference Range Interpretation [...] NO = MDIFF) - XR CHEST 1 [id number] 00:00:00 [facility] : 1940 Sex: F FAX: Sanju Brooks MD [phone] [place]: St: [facility] FAX: Rosa Matson MD [phone] FAX: Dae Beckett MD [phone] Name: FALGUNI AGARWAL [facility] : 1940 Age/S: 81/F [address] [place] [address] Unit #: [id number] Loc: G.[address] [place] [address] Phys: Rosa Oscar MD Acct: [id number] Dis Date: Status: ADM IN PHONE #: [phone] Exam Date: 01/15/20221913 FAX #: [phone] Reason: SHORT OF BREATH EXAMS: CPT CODE: [id number] XR CHEST 1 V 40811 PROCEDURE INFORMATION: Exam: XR Chest Exam date [...] pleural effusion. There is no pneumothorax. Heart/Mediastinum: Unre markable. No cardiomegaly. Vasculature: There are moderate calcifications of the aorta. Bones/joints: Unremarkable. IMPRESSION: 1. There is a stable small left pleural effusion. 2. Previous left pulmonary airspace disease is near completely resolved with minimal reticular density remaining. at 2055 Reported and signed by: Jose Knight D.O. CC: Sanju Gill MD; Rosa Oscar MD; Dae Weaver MD Technologist: RT Russ(R) Trnscrd Date/Time/By: 01/15/2022 (2055) : By: [email or web address] Orig Print D/T: S: 01/15/2022 (2055) PAGE 1 Signed ReportCBC W/AUTO [id number] 14:45:00 Test Item Value Reference Range Interpretation [...] (test NO code = MDIFF) BASIC METABOLIC [id number] 07:55:00 Test Item Value Reference Range Interpretation [...] code = 7.6 mg/dL 8.0-10.5 L CA) [id number] 07:55:00 Test Item Value Reference Range Interpretation Comments MAGNESIUM (test code = MAG) 2.10 mg/dL 1.80-2.40 CBC W/AUTO [id number] 05:44:00 Test Item Value Reference Range Interpretation [...] REQUIRED (test NO code = MDIFF) PROTHROMBIN [id number] 05:43:00 Test Item Value Reference Range Interpretation [...] (to prevent recurrent infar ct). THROMBOPLASTIN TIME [id number] 05:43:00 Test Item Value Reference Range Interpretation Comments THROMBOPLASTIN TIME 25.4 Seconds 25.0-39.5 N Therape utic Range: PARTIAL (test code = 50.4 - 88.3 Seconds PTT) Effective 09/18/2018 HGB [id number] 22:12:00 Test Item Value Reference Range Interpretation Comments HEMOGLOBIN (test code = HGB) 6.8 g/dL 11.0-15.0 L HEMATOCRIT (test code = HCT) 20.7 % 33.0-45.0 L HGB [id number] 16:33:00 Test Item Value Reference Range Interpretation Comments HEMOGLOBIN (test code = HGB) 7.0 g/dL 11.0-15.0 L HEMATOCRIT (test code = HCT) 20.6 % 33.0-45.0 L CBC W/AUTO [id number] 10:43:00 Test Item Value Reference Range Interpretation [...] (test NO code = MDIFF) BASIC METABOLIC [id number] 04:47:00 Test Item Value Reference Range Interpretation [...] code = 7.2 mg/dL 8.0-10.5 L CA) [id number] 04:47:00 Test Item Value Reference Range Interpretation Comments PHOSPHOROUS (test code = PHOS) 3.9 MG/DL 2.5-4.9 N [id number] 04:47:00 Test Item Value Reference Range Interpretation Comments MAGNESIUM (test code = MAG) 1.72 mg/dL 1.80-2.40 L CALCIUM [id number] 04:47:00 Test Item Value Reference Range Interpretation Comments CALCIUM IONIZED (test code = TOMMY) 1.13 MMOL/L 1.09-1.30 N CBC W/AUTO [id number] 04:37:00 Test Item Value Reference Range Interpretation [...] NO code = MDIFF) POC ARTERIAL BLOOD [id number] 04:16:00 Test Item Value Reference Range Interpretation Comments POC ARTERIAL BLOOD GAS PH (test 7.318 7.35-7.45 L code = POCPHA) POC ARTERIAL BLOOD GAS PCO2 35.6 mmHg 35.0-45 N (test code = VNIXMW4B) POC TCO2 ARTERIAL (test code = 19.2 POCTCO2) POC ARTERIAL BLOOD GAS PO2 (test 148.4 mmHg 80-100.0 H code = TDFUT7L) POC HCO3 ARTERIAL (test code = 18.2 MMOL/L 22.0-26.0 L FYEUHJ1W) POC BASE EXCESS (test code = -7.9 MMOL/L -4.0-4.0 L POCBEA) POC O2 SATURATION (test code = 99.1 % 90-100 N POCO2S) FIO2 (test code = FIO2A) 40 % PaO2/FiO2 (test code = FZR7FYA2) 371.00 mm/Hg ABG DELIVERY (test code = CAITY) Adult Vent ABG VENT MODE (test code = AC MODEA) ABG VENT RESP RATE (test code = 14 /MIN RRA) ABG TIDAL VOLUME (test code = 400 ml TVA) ABG PEEP (test code = PEEPA) 5 cmH2O ABG TEMPERATURE (test code = 99.2 F TEMPA) ABG SITE (test code = SITEA) Art Line BASIC METABOLIC [id number] 04:16:00 Test Item Value Reference Range Interpretation [...] = POCGLU) 119 MG/DL 70-110 H HEMOGLOBIN [id number] 04:16:00 Test Item Value Reference Range Interpretation Comments HEMOGLOBIN ABG (test code = HGB/ABG) 7.0 G/DL 11.0-15.0 L [id number] 04:16:00 Test Item Value Reference Range Interpretation Comments HEMATOCRIT (test code = HCT/ABG) 21 % 33.0-45.0 L POC LACTIC [id number] 04:16:00 Test Item Value Reference Range Interpretation Comments POC LACTIC ACID (test code = 0.7 mmol/l 0.9-1.7 L POCLAC) POC ARTERIAL BLOOD [id number] 01:42:00 Test Item Value Reference Range Interpretation Comments POC ARTERIAL BLOOD GAS PH (test 7.301 7.35-7.45 L code = POCPHA) POC ARTERIAL BLOOD GAS PCO2 39.0 mmHg 35.0-45 N (test code = NNNCSF1J) POC TCO2 ARTERIAL (test code = 20.4 POCTCO2) POC ARTERIAL BLOOD GAS PO2 (test 184.3 mmHg 80-100.0 H code = ACAEF8W) POC HCO3 ARTERIAL (test code = 19.2 MMOL/L 22.0-26.0 L IHVRDY4K) POC BASE EXCESS (test code = -7.2 MMOL/L -4.0-4.0 L POCBEA) POC O2 SATURATION (test code = 99.5 % 90-100 N POCO2S) FIO2 (test code = FIO2A) 50 % PaO2/FiO2 (test code = SWH0FAP0) 368.60 mm/Hg ABG DELIVERY (test code = CAITY) Adult Vent ABG VENT MODE (test code = AC MODEA) ABG VENT RESP RATE (test code = 14 /MIN RRA) ABG TIDAL VOLUME (test code = 400 ml TVA) ABG PEEP (test code = PEEPA) 5 cmH2O ABG TEMPERATURE (test code = 99.1 F TEMPA) ABG SITE (test code = SITEA) Art Line BASIC METABOLIC [id number] 01:42:00 Test Item Value Reference Range Interpretation [...] = POCGLU) 116 MG/DL 70-110 H HEMOGLOBIN [id number] 01:42:00 Test Item Value Reference Range Interpretation Comments HEMOGLOBIN ABG (test code = HGB/ABG) 7.7 G/DL 11.0-15.0 L [id number] 01:42:00 Test Item Value Reference Range Interpretation Comments HEMATOCRIT (test code = HCT/ABG) 23 % 33.0-45.0 L POC LACTIC [id number] 01:42:00 Test Item Value Reference Range Interpretation Comments POC LACTIC ACID (test code = 0.5 mmol/l 0.9-1.7 L POCLAC) - XR CHEST 1 [id number] 00:00:00 [facility] 1940 Sex: F FAX:Sanju Brooks MD [phone] [place]: St: ADM FAX: Deanna Aguilar MD FAX: Dae Beckett MD [phone] Name: FALGUNI AGARWAL [facility] : 1940 Age/S: 81/F [address] [place] [address] Unit #: [id number] Loc: G.[address] [place] [address] Phys: Deanna Aguilar MD Acct: [id number] Dis Date: Status: ADM IN PHONE #: [phone] Exam Date: 01/12/2022 2356 FAX #: [phone] Reason: VERIFY OGT PLACEMENT EXAMS:CPT CODE: [id number] XR CHEST 1 V 50792 PROCEDURE INFORMATION: Exam: XR Chest Exam date and time: 01/12/2022 11:48 PM Age: 81 years old Clinical indication: Device placement; Other: Verify ogt placementTECHNIQUE: Imaging protocol: Radiologic exam of the chest. Views: 1 view. COMPARISON: CR XR CHEST 1V01/12/2022 9:18 PM FINDINGS: Tubes, catheters and devices: an endotracheal tube terminates just belowthe clavicles. A nasogastric tube terminates in the abdomen. Lungs: There is left perihilar airspacedisease. Pleural spaces: There is blunting the left costophrenic angle. Heart/Mediastinum: There is a therosclerosis of the coronary vasculature. Bones/joints: Unremarkable. IMPRESSION: 1. Left perihilar airspace disease with blunting the left costophrenic angle suggesting pleural thickening versus small effusion. 2. Support devices as noted above. at 0043 Reported and signed by: Magi Ramirez M.D CC: Sanju Gill MD; Deanna Aguilar MD; Dae Weaver MD Technologist: RT David(Chelo) Trnscrd Date/Time/By: 01/13/2022 (0043) : By: [email or web address] Orig Print D/T: S: 01/13/2022 (004) PAGE 1 Signed ReportPO ARTERIAL BLOOD [id number] 22:14:00 Test Item Value Reference Range Interpretation Comments POC ARTERIAL BLOOD GAS PH (test 7.289 7.35-7.45 LL code = POCPHA) POC ARTERIAL BLOOD GAS PCO2 (test 38.2 mmHg 35.0-45 N code = OKQZLK2B) POC TCO2 ARTERIAL (test code = 19.6 POCTCO2) POC ARTERIAL BLOOD GAS PO2 (test 108.8 mmHg 80-100.0 H code = JIYSV2T) POC HCO3 ARTERIAL (test code = 18.4 MMOL/L 22.0-26.0 L IKSZMX5Z) POC BASE EXCESS (test code = -8.3 MMOL/L -4.0-4.0 L POCBEA) POC O2 SATURATION (test code = 97.7 % 90-100 N POCO2S) ABG DELIVERY (test code = CAITY) Adult Vent ABG TEMPERATURE (test code = 98 F TEMPA) ABG SITE (test code = SITEA) Art Line BASIC METABOLIC [id number] 22:14:00 Test Item Value Reference Range Interpretation [...] = POCGLU) 163 MG/DL 70-110 H HEMOGLOBIN [id number] 22:14:00 Test Item Value Reference Range Interpretation Comments HEMOGLOBIN ABG (test code = HGB/ABG) 8.9 G/DL 11.0-15.0 L [id number] 22:14:00 Test Item Value Reference Range Interpretation Comments HEMATOCRIT (test code = HCT/ABG) 26 % 33.0-45.0 L POC LACTIC [id number] 22:14:00 Test Item Value Reference Range Interpretation Comments POC LACTIC ACID (test code = 0.8 mmol/l 0.9-1.7 L POCLAC) POC ARTERIAL BLOOD [id number] 21:29:00 Test Item Value Reference Range Interpretation Comments POC ARTERIAL BLOOD GAS PH (test 7.249 7.35-7.45 LL code = POCPHA) POC ARTERIAL BLOOD GAS PCO2 (test 44.5 mmHg 35.0-45 N code = PVAQPR6S) POC TCO2 ARTERIAL (test code = 20.9 POCTCO2) POC ARTERIAL BLOOD GAS PO2 (test 449.8 mmHg 80-100.0 HH code = OSQPE9U) POC HCO3 ARTERIAL (test code = 19.5 MMOL/L 22.0-26.0 L TGXPVJ4M) POC BASE EXCESS (test code = -7.8 MMOL/L -4.0-4.0 L POCBEA) POC O2 SATURATION (test code = 100.0 % 90-100 N POCO2S) ABG DELIVERY (test code = CAITY) Adult Vent ABG TEMPERATURE (test code = 98 F TEMPA) ABG SITE (test code = SITEA) Art Line BASIC METABOLIC [id number] 21:29:00 Test Item Value Reference Range Interpretation [...] = POCGLU) 154 MG/DL 70-110 H HEMOGLOBIN [id number] 21:29:00 Test Item Value Reference Range Interpretation Comments HEMOGLOBIN ABG (test code = HGB/ABG) 9.1 G/DL 11.0-15.0 L [id number] 21:29:00 Test Item Value Reference Range Interpretation Comments HEMATOCRIT (test code = HCT/ABG) 27 % 33.0-45.0 L POC LACTIC [id number] 21:29:00 Test Item Value Reference Range Interpretation Comments POC LACTIC ACID (test code = 1.0 mmol/l 0.9-1.7 N POCLAC) COMPREHENSIVE METABOLIC [id number] 20:47:00 Test Item Value Reference Range Interpretation [...] TOTAL (test code = ALKP) CBC W/AUTO [id number] 20:28:00 Test Item Value Reference Range Interpretation [...] COMMENTS: CHECK AFTER BLOOD TRANSFUSIONPO ARTERIAL BLOOD [id number] 19:45:00 Test Item Value Reference Range Interpretation Comments POC ARTERIAL BLOOD GAS PH (test 7.140 7.35-7.45 LL code = POCPHA) POC ARTERIAL BLOOD GAS PCO2 56.1 mmHg 35.0-45 HH (test code = [id number]) POC TCO2 ARTERIAL (test code = 20.8 POCTCO2) POC ARTERIAL BLOOD GAS PO2 (test 47.6 mmHg 80-100.0 LL code = [id number]) POC HCO3 ARTERIAL (test code = 19.1 MMOL/L 22.0-26.0 L [id number]) POC BASE EXCESS (test code = -10.0 MMOL/L -4.0-4.0 L POCBEA) POC O2 SATURATION (test code = 69.6 % 90-100 L POCO2S) BASIC METABOLIC [id number] 19:45:00 Test Item Value Reference Range Interpretation [...] = POCGLU) 190 MG/DL 70-110 H HEMOGLOBIN [id number] 19:45:00 Test Item Value Reference Range Interpretation Comments HEMOGLOBIN ABG (test code = 11.0 G/DL 11.0-15.0 N HGB/ABG) [id number] 19:45:00 Test Item Value Reference Range Interpretation Comments HEMATOCRIT (test code = HCT/ABG) 32 % 33.0-45.0 L POC LACTIC [id number] 19:45:00 Test Item Value Reference Range Interpretation Comments POC LACTIC ACID (test code = 0.9 mmol/l 0.9-1.7 N POCLAC) CBC W/AUTO [id number] 16:07:00 Test Item Value Reference Range Interpretation [...] DIFF REQUIRED (test code NO = MDIFF) [id number] 15:41:00 Test Item Value Reference Range Interpretation Comments ACT-ISTAT (test code 178 SEC 74-137 H Perform ed by certified = ACTI) 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 [facility] [id number] 12:44:00 Test Item Value Reference Range Interpretation Comments ACT-ISTAT (test code 254 SEC 74-137 H Perform ed by certified = ACTI) 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 [facility] [id number] 12:30:00 Test Item Value Reference Range Interpretation Comments ACT-ISTAT (test code 231 SEC 74-137 H Perform ed by certified = ACTI) 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 [facility] - XR CHEST 1 [id number] 00:00:00 [facility] [place] FALGUNI AG[place]WAL : 1940 Sex: F FAX: Sanju Brooks MD [phone] [place]: St: ADM FAX: Dae Beckett MD [phone] Name: FALGUNI AGARWAL [facility] [place] : 1940 Age/S: 81/F [address] [place] [address] Unit #: [id number] Loc: [address] [place] [address] Phys: Sanju Gill MD Acct: [id number] Dis Date: Status: ADM IN PHONE #: [phone] Exam Date: 01/12/20222121 FAX #: [phone] Reason: ET PLACEMENT Report Has Been Amended EXAMS: CPT CODE: [id number] XR CHEST 1 V 97807 Addendum - 01/12/2022 SIGNED 01/12/2022 ADDENDUM: [id number] RAD/CXR1 THIS REPORT CONTAINS FINDINGS THAT MAY BE CRITICAL TO PATIENT CARE. The findings were verbally communicated via telephone conference with Dr Aguilar at 10:19 PM CDT on 01/12/2022. The findings were acknowledged and understood. at 2219 Reported and signed by: Jose Knight D.O. Report PROCEDURE INFORMATION: Exam: XR Chest Exam date and time: 01/12/2022 9:18 PM Age: 81 years old Clinical indication: Device placement; Ett placement(vent status); Additional info: Et placement TECHNIQUE: Imaging protocol: Radiologic exam of the chest. Views: 1 view. COMPARISON: CTA ABD PEL W CONT 01/12/2022 6:02 PM FINDINGS: Lungs: There is a rightmainstem bronchus intubation. The endotracheal tube terminates 1.8 cm deep to the юлия. Retractionof 5-6 cm is recommended for optimal position. There is mild right infrahilar pulmonary opacity. There is moderate reticulonodular opacity in mid and upper lung. These areas are suspicious for pneumonia. Pleural spaces: There is a new small left pleural effusion. There is no pneumothorax. Heart/Medias tinum: Unremarkable. No cardiomegaly. Vasculature: There are moderate calcifications of the aorta. Bones/joints: Unremarkable. Intraperitoneal space: There are surgical clips in the upper abdomen. IMPRESSION: PAGE 1 Signed Report (CONTINUED) FAX: Sanju Brooks MD [phone] [place]: St: ADM FAX: Dae Beckett MD [phone] Name: FALGUNI AGARWAL [facility] : 1940 Age/S: 81/F [address] [place] [address] Unit #: [id number] Loc: [address] [place] [address] Phys: Sanju Gill MD Acct: [id number] Dis Date: Status: ADM IN PHONE #: [phone] Exam Date: 01/12/20222121 FAX #: [phone] Reason: ET PLACEMENT Report Has Been Amended EXAMS: CPT CODE: [id number] XR CHEST 1 V 30677 (Continued) 1. There is a right mainstem [...] signed by: Jose Knight D.O. CC: Sanju Gill MD; Dae Weaver MD Technologist: Ladonna Cardenas, RT(R); Mitzy Burns RT(R) Trnscrd Date/Time/By: 01/12/2022 (2214) : By: [email or web address] Orig Print D/T: S: 01/12/2022 (2214) PAGE 2 Signed Report- CTA ABD PEL W [id number] 00:00:00 [facility] 1940 Sex: F Name: FALGUNI AGARWAL [facility] : 1940 Age/S: 81 / F [address] [place] [address] Unit #: [id number] Loc: A[place] [address] Phys: Jerry Dotson MD Acct: [id number] Dis Date: Status: ADM IN PHONE #: [phone] Exam Date: 01/12/2022 175 FAX #: [phone] Reason: LT HEMATOMA LT GROIN Report Has Been Amended EXAMS: CPT CODE: [id number] CTA ABD PEL W CONT 75362 Addendum - 01/12/2022 SIGNED 01/12/2022 ADDENDUM: [id number] CT/CTAAPWCONT I have been informed by sport personnel that thepatient's physician, Dr. Dotson is aware of the findings and patient is going to the OR. at 1857 Reported and signed by: Krzysztof Son M.D. Report PROCEDURE INFORMATION: Exam: CTA Abdomen and Pelvis With Contrast Exam date and time: 26:02 PM Age: 81 years old Clinical indication: Other: Lt hematoma lt groin TECHNIQUE: Imaging protocol: Computed tomographic angiography of the abdomen and pelvis with contrast. 3D rendering (Not supervised by radiologist): MIP and/or 3D reconstructed images were created by the technologist. Radiation optimization: All CT scans at this facility use at least one of these dose optimization techniques:automated exposure control; mA and/or kV adjustment per patient size (includes targeted exams where dose is matched to clinical indication); or iterative reconstruction. Contrast material: ISOVUE 370; C ontrast volume: 100 ml; Contrast route: INTRAVENOUS (IV); COMPARISON: No relevant prior studies available. FINDINGS: Aorta: Heavy vascular calcification No aortic aneurysm. No aortic dissection. Celiactrunk and mesenteric arteries: No occlusion or significant stenosis. Renal arteries: Calcified plaques in proximal renal artery with moderate stenosis. No occlusion or significant stenosis. Right iliacarteries: Heavy vascular calcification. No occlusion or significant stenosis. Calcified plaques in femoral arteries. Uvqs-ob-ymtvhwbi stenosis in GARAGE MANAGER and visualized SFA. PAGE 1 Signed Report (CONTINUED) Name: FALGUNI AGARWAL [facility] [place] : 1940 Age/S: 81 / F [address] [place] [address] Unit #: [id number] Loc: [place] [address] Phys: Jerry Dotson MD Acct: [id number] Dis Date: Status: ADM IN PHONE #: [phone] Exam Date: 01/12/2022 1759 FAX #: [phone] Reason: LT HEMATOMA LT GROIN Report Has Been Amended EXAMS: CPT CODE: [id number] CTA ABD PEL W CONT 72361 (Continued) Left iliac arteries: Heavy vascular calcification. No occlusion or significant stenosis. Calcified plaques in femoral arteries. Etym-dm-asawgvqr stenosis in GARAGE MANAGER and visualized SFA. Limited lower chest: Heavy coronary calcification. Calcified plaques in descending thoracic aorta. Reticulonodular opacities in the lower lobes. Calcified granuloma in the right lung base Liver: Unremarkable. Gallbladder and bileducts: Cholecystectomy. No ductal dilation. Pancreas: Unremarkable. No ductal dilation. Spleen: No splenomegaly. Adrenal glands: Unremarkable. Kidneys and ureters: Bilateral renal cortical thinning and nonobstructing stones. Heavy intrarenal vascular calcification. Left renal cyst. No hydronephrosis. Stomach and bowel: Stomach is moderately distended with air- fluid level. Sigmoid diverticulosis. Moderate fecal load in the colon Appendix: No evidence of appendicitis. Intraperitoneal space: No free air. No significant fluid collection. Lymph nodes: No adenopathy. Urinary bladder: Unremarkable. Reproductive: Hysterectomy. Pelvic floor stabilization device. Ovaries are not visualized with confidence..Bones/joints: Grade 1 spondylolisthesis at L5-S1 with bilateral pars defect at L5. Chronic appearingcompression fracture deformity of L2. Bony osteopenia. Multilevel degenerative changes in thoracolum bar spine. Soft tissues: Large area of stranding, edema inflammation predominantly medial aspect extending from the right groin to the medial upper thigh measuring 7.0 x 5.1 x 12.7 cm, probably hematoma. There is a 1.5 x 0.7 cm elongated hyperdense area anterior to the common femoral arterial bifurcation which may represent pseudoaneurysm versus small contrast extravasation. Subcutaneous stranding and edema in the right groin, may be related to recent procedure. IMPRESSION: 1. No evidence for aneurysm or dissection of the abdominal aorta. Heavy vascular calcification. Moderate proximal renal arterial stenosis. 2. Large area of edema, swelling and stranding with 7.0 x 5.1 x 12.7 cm mass extendingfrom the left groin to the left upper thigh, probably soft tissue hemorrhage and hematoma. 1.5 x 0.7cm PAGE 2 Signed Report (CONTINUED) Name: FALGUNI AGARWAL [facility] : 1940 Age/S: 81 / F[address] Unit #: [id number] Loc: [place] [address] Phys: Jerry Dotson MD Acct: [id number] Dis Date: Status: ADM IN PHONE #: [phone] Exam Date: 01/12/2022 175 FAX #: [phone] Reason: LT HEMATOMA LT GROIN Report Has Been Amended EXAMS: CPT CODE: [id number] CTA ABD PEL W CONT 61889 (Continued) elongated hypodense area anterior to the GARAGE MANAGER bifurcation may represent ps eudoaneurysm versus contrast extravasation. 3. Small and atrophy kidneys with cortical scar, nephrolithiasis in heavy intrarenal vascular calcification. No hydronephrosis. Left renal cyst. 4. Reticulonodular opacities in bilateral lower lobes may represent infectious/inflammatory process in appropriate clinical setting. 5. Additional incidental and chronic findings as above. at 1850 Reported and signed by: Krzysztof Son M.D. CC: Sanju Gill MD; Jerry Dotson MD; Dae Weaver MD Technologist:Blas Moore, RT(R)(CT) CTDI: DLP: Trnscb Date/Time: 01/12/2022 (1849) [email or web address] Orig Print D/T: S: 01/12/2022 (1849) PAGE 3 Signed Report- RUTH PRAJAPATI/[id number] 00:00:00 [facility] 1940 Sex: F Name:FALGUNI AGARWAL [facility] : 1940 Age/S: 81 / F [address] [place] [address] Blvd Unit #: [id number] Loc: [place] [address] Phys: Dae Weaver MD Acct: [id number] Dis Date: Status: ADM IN PHONE #:[phone] Exam Date: 01/12/20222119 FAX #: [phone] Reason: HEMATOMA TO LT GROIN EXAMS: CPTCODE: [id number] [facility] ART UNI/LTD 31372 PROCEDURE INFORMATION: Exam: US Duplex Left Lower [...] pseudoaneurysm detected. at 2217 Reported and signed by: Jose Knight D.O. CC: Sanju Gill MD; Dae Weaver MD Technologist: Dede Garsia RDMS(AB)(OB) Trnscb Date/Time: 01/12/2022 (2216) [email or web address] Orig Print D/T: S: 01/12/2022 (2216) Probe: PAGE 1 Signed ReportBASIC METABOLIC [id number] 15:58:00 Test Item Value Reference Range Interpretation [...] = 9.0 mg/dL 8.0-10.5 N CA) PROTHROMBIN [id number] 15:46:00 Test Item Value Reference Range Interpretation [...] (to prevent recurrent infar ct). CBC W/AUTO [id number] 15:40:00 Test Item Value Reference Range Interpretation [...] (test code = LDL) NEAR OPTIM AL/ABOVE [id number] 89 HIGH>AR=142 GENTRY Y HIGH*Guidelines provided by the National [facility] terol EducationProgra Adult Treatment Panel III BASIC METABOLIC [id number] 16:55:00 Test Item Value Reference Range Interpretation [...] 8.5 mg/dL 8.0-10.5 N CA) CBC W/AUTO [id number] 16:40:00 Test Item Value Reference Range Interpretation [...] DIFF REQUIRED (test code NO = MDIFF) [id number] 16:39:00 Test Item Value Reference Range Interpretation Comments ACT-ISTAT (test code 231 SEC 74-137 H Perform ed by certified = ACTI) 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 [facility] [id number] 14:20:00 Test Item Value Reference Range Interpretation Comments ACT-ISTAT (test code 288 SEC 74-137 H Perform ed by certified = ACTI) 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 [facility] [id number] 13:59:00 Test Item Value Reference Range Interpretation Comments ACT-ISTAT (test code 306 SEC 74-137 H Perform ed by certified = ACTI) 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 [facility] [id number] 13:45:00 Test Item Value Reference Range Interpretation Comments ACT-ISTAT (test code 260 SEC 74-137 H Perform ed by certified = ACTI) 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 [facility] [id number] 13:45:00 Test Item Value Reference Range Interpretation Comments ACT-ISTAT (test code 254 SEC 74-137 H Perform ed by certified = ACTI) 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 [facility] BASIC METABOLIC [id number] 13:46:00 Test Item Value Reference Range Interpretation [...] = 9.2 mg/dL 8.0-10.5 N CA) PROTHROMBIN [id number] 13:36:00 Test Item Value Reference Range Interpretation [...] (to prevent recurrent infar ct). CBC W/AUTO [id number] 13:34:00 Test Item Value Reference Range Interpretation [...] DIFF REQUIRED (test code NO = MDIFF) Notes Date/Time Note Provider Source 2022-02-03 12:32:00-00:00 [id number] [address] patient name: falguni agarwal admit date: 01/13/22 account no: [id number] room no: g.[id number] age: 81 report type: 360 - query response document sex: f admitting physician:sanju gill md attending physician:sanju gill md provider query query text: relationship procedure condition 360md query related questions should be directed to: [facility] [place] please clarify the etiology of the diagnosis [he morrhage from left femoral arterys] and its relationship , if any, to the procedure [left cardiac catheterization] . the classification system provides these guideli kingston for intraoperative and/or post procedure conditions /diagnoses: -- not all post procedure conditions are classif ied as complications. - there must be an unexpected or abnormal occurr ence. - there must be a documented cause and effect re lationship between the condition and the care. - there must be an indication that it is a compl ication -- the term ''complication'' as used in icd-10-c m does not imply that improper or inadequate care is respo nsible for the problem -- there is no time limit for development of com plication -- the term postoperative requires clarity to de termine if it is a complication or condition resulting fro m medical/surgical care that is a residual condit ion of the procedure. -- when laceration/tear/enterotomy occurs during a procedure, the physician must provide clarity a s to whether the tear was an incidental occurrence i nherent to the procedure or clinically significant (compli cation). -- when hemorrhage occurs with procedure, clarif y if it is expected or unexpected as well as abnormal amou nt of blood loss and the organ or tissue structure involved (i.e., subcutaneous, fascia, specific organ, specific artery/vein, etc.). the patient's clinical indicators include: femoral site hematoma: post [facility]-cardiology progr ess 01/15 -s/p emergent left groin hemorrhage with evacuat ion of hematoma and repair of common femoral artery for hemorrhage-cardiology progress 01/15 left groin site intemittent hematoma - currently holding pressure per dr. weaver. on plavix, asa, bb and statins-cardiology consul tation-01/12 options provided: -- routine, inherent or integral -- unexpected or abnormal -- unrelated, please specify the cause if known. -- other - i will add my own diagnosis -- dismiss - not applicable / not valid -- dismiss - clinically unable to determine / un known -- assign to another provider query response: this was an unexpected or abnormal occurrence of the procedure (complication). query created by: aisha ordonez on 02/03/2022 2:18 am electronically signed by md monty malin 02/03/22 at 1232 patient name: falguni agarwal 89 2022-01-25 17:16:00-00:00 [facility] vascular surgery progress note report#:[id number] report status: signed date:01/25/22 time: 1716 patient: falguni agarwal unit #: [id number] room/bed: [place] [address] : [birth year] age: 81 sex: f attend: kimo gill md adm dt: 01/13/22 author: jerry dotson md * all edits or amendments must be made on the [employer] document * general status post: left groin exploration with repair of common fem oral artery subjective chief complaint: cad, left groin hematoma hpi patient doing well. tolerated ambulation. hgb im proved. pain controlled. review of systems all systems rev neg: except as marked objective general vs/i o: last documented: result date time pulse ox 99 01/25 161 b/p 148/79 01/25 161 b/p mean 102.0 01/25 161 o2 delivery room air 01/25 161 temp 97.9 01/25 1612 pulse 84 01/25 1612 resp 18 01/25 1612 o2 flow rate 2 01/21 0400 fio2 21 01/13 0922 24 hour i o ending at 0700: 01/25 0700 01/24 1900 intake total 310.00 470 output total 0 balance 310.00 470 intake, iv 10.00 intake, oral 300 470 number 0 bowel movements number voids 1 output, stool 0 patient weight: weight (lb): 108 weight (oz): 0.42 weight (kg): 48.988 review of systems constitutional: denies: chills, fever. skin: reports: ecchymosis. denies: itching, rash. respiratory: denies: sob, wheezing. cardiovascular: denies: chest pain, palpitations. gi: denies: abdominal pain, hematochezia. gu: denies: dysuria, frequency, hematuria. heme: reports: bleeding. denies: bruising. all systems rev neg: except as marked physical exam general appearance: alert, awake, oriented head/eyes: atraumatic, normal conjunctiva/sclera , normal eyelids/periorb., normocephalic neck: full range of motion, normal thyroid, no j vd cardiovascular: normal heart sounds, regular rat e rhythm respiratory: aerating well, symmpetricla chest r ise abdomen: non-tender, soft, no distention extremities: moves all, no calf tenderness, no e pina (left groin hematoma ) neuro/software support representative: alert, oriented x 3, cnii-xii intact, normal speech skin: abnormal color (lower abdomen ecchymosis), dry, intact medications: active meds + dc'd last 24 hrs levalbuterol hcl (levalbuterol 1.25mg/3ml) 0.63 mg rtq6h prn prn inh sodium chloride (sodium chloride) 10 ml asdir iv heparin sodium (heparin 5000 units/ml) 5,000 uni t q8h subq losartan potassium (cozaar) 50 mg daily po bisacodyl (dulcolax) 10 mg daily prn prn rectal sodium chloride (sodium chloride) 10 ml asdir iv aspirin (aspirin) 81 mg daily po clopidogrel bisulfate (plavix) 75 mg daily po docusate sodium (colace) 100 mg bid po metoprolol tartrate (lopressor) 50 mg bid po polyethylene glycol (miralax) 17 gm daily po levothyroxine sodium (synthroid) 50 mcg daily 06 00 po atorvastatin calcium (lipitor) 40 mg bedtime po topiramate (topamax) 25 mg bid po results findings/data: laboratory tests 01/25 01/25 0500 0500 chemistry sodium (134 - 147 meq/l) 142 potassium (3.4 - 5.0 meq/l) 4.4 chloride (100 - 108 meq/l) 118 h carbon dioxide (21 - 33 meq/l) 14 l anion gap (0 - 20) 14 bun (7 - 18 mg/dl) 17 creatinine (0.6 - 1.3 mg/dl) 0.9 glomerular filtr rate (70 - 80) 59.9 l glucose (70 - 110 mg/dl) 69 l calcium (8.0 - 10.5 mg/dl) 6.8 l iron (35 - 150 mcg/dl) 52 ferritin (11.0 - 306.8 ng/ml) 75.1 laboratory tests 01/25 01/25 0930 0500 hematology wbc (4.5 - 11.0 x10 3/ul) 14.5 h rbc (3.54 - 5.02 x10 6/ul) 2.53 l hgb (11.0 - 15.0 g/dl) 8.8 l 7.7 l hct (33.0 - 45.0 %) 27.6 l 25.1 l mcv (81.0 - 99.0 fl) 99.2 h mch (27.0 - 33.0 pg) 30.4 mchc (33.0 - 37.0 g/dl) 30.7 l rdw (11.5 - 14.5 %) 18.8 h plt count (150 - 400 x10 3/ul) 362 mpv (7.0 - 9.0 fl) 11.1 h neut % (auto) (56.0 - 77.0 %) 70.6 lymph % (auto) (14.0 - 32.0 %) 16.2 mono % (auto) (4.8 - 9.0 %) 7.0 eos % (auto) (0.3 - 3.7 %) 3.6 baso % (auto) (0.0 - 2.0 %) 0.9 neut # (auto) (2.0 - 7.6 x10 3/ul) 10.22 h lymph # (auto) (1.0 - 3.8 x10 3/ul) 2.35 mono # (auto) (0.1 - 0.8 x10 3/ul) 1.02 h eos # (auto) (0.0 - 0.2 x10 3/ul) 0.52 h baso # (auto) (0.0 - 0.2 x10 3/ul) 0.13 abs immat gran (auto) (0.00 - 0.03 x10 3/ul) 0. 25 h add manual diff no immature gran % (0.0 - 2.0 %) 1.7 nucleated rbc % (0 - 0 %) 0.0 nucleated rbcs # (man) (0.0 - 0.1 x10 3/ul) 0.0 0 diagnosis, assessment plan free text a p: patient with left groin hematoma. patien t doing well. ok to dc home. fu in 1-2 weeks to monitor groin incision. electronically signed by jerry dotson md on 01/25/22 at 1721 rpt #:[id number] end of report 2022-01-25 17:15:00-00:00 [facility] hospitalist discharge summary report#:[id number] report status: signed date:01/25/22 time: 1715 patient: falguni agarwal unit #: [id number] room/bed: [place] [address] : [birth year] age: 81 sex: f attend: kimo gill md adm dt: 01/13/22 author: rosa oscar md * all edits or amendments must be made on the [employer]/computer document * general information date of admission: observation start date: 01/13/22 date of admission: 01/13/22 discharge date: 01/25/22 admission diagnosis: hemorrhage from left femoral artery left common femoral artery pseudoaneurysm anemia due to acute blood loss acute respiratory failure --post procedure cad ckd3 htn hypothyroid discharge diagnosis: hemorrhage from left femoral artery left common femoral artery pseudoaneurysm anemia due to acute blood loss acute respiratory failure --post procedure cad ckd3 htn hypothyroid hospital course: hemorrhage from left femoral artery left common femoral artery pseudoaneurysm anemia due to acute blood loss acute respiratory failure --post procedure cad ckd3 htn hypothyroid hemorrhage from left femoral artery anemia due to acute blood loss vascular surgeon consult -- repair artery --yes terday monitor in ccu transfuse 2 units rbbc monitor h h -- transfuse if < 7 respiratory failure post procedure -- now resolve extubated in the ccu cad with stents cardiology consult asa/plavix as cardiology ckd-- stable htn-- continue cozaar and metoprolol stable hypothyroid-- continue home med 01/14- she complaint of headache -- no cp no sob -- she is hemodynamic stable -- h h -- stable -- after 2 units blood transfu stephanie -- continue monitor in ccu 01/15- she is stable no new event -- h h -- stable -post transfusion -- continue monitor in ccu 01/16-- she feel well -- ct of lower extremity 1. decreased size and near resolution of previo usly described hematoma in the superficial soft tissues of the medial aspect of the proximal thigh with drain in place. 2. new nonspecific enlargement and edema within the left adductor muscles. 3. slight increased size of possible pseudoaneur ysm near the common femoral artery bifurcation. -- manage as vascular surgeon -- monitor h h --7.6 bedside percutaneous ultrasound guided thrombin injection in the left common femoral artery pseudoaneurysm [id number] 01/17- she feel well . no dizziness no cp no sob no abdominal pain -- h h --6.1-- transfuse 2 units blood -- continue monitor h h in icu 01/18- she is doing well -- h h -- 8--post transfusion -- continue monitor h h 01/19- she feel well -- continue bed rest as vascular surgeon -- h h --7.8 -- continue monitor h h 01/20-- she is doing well -- ambulate ok with vascular surgeon -- monitor h h 01/21 she ambulate h h -- stable ok to transfer to tele continue monitor h h 01/22 low hgb, pending repeat. transfuse 1 unit p rbc if still <7. hold heparin for today since anemia and oozing at injection s ites. 01/23 s/p prbc. hgb 7.5. continue to monitor. 01/24- she feel well -- hb -- 7.4 -- today -- continue monitor h h h h -- 8.8 -- today she feel well . she is stabl e to discharge home as cardiology and surgeon . she will follow up with pcp in 1-2 weeks for cbc consultants: cardiology, cardiovascular surgery, colorectal surgery free text dxa p notes free text dxa p notes: hemorrhage from left femoral artery left common femoral artery pseudoaneurysm anemia due to acute blood loss acute respiratory failure --post procedure cad ckd3 htn hypothyroid hemorrhage from left femoral artery anemia due to acute blood loss vascular surgeon consult -- repair artery --yes terday monitor in ccu transfuse 2 units rbbc monitor h h -- transfuse if < 7 respiratory failure post procedure -- now resolve extubated in the [facility] cad with stents cardiology consult asa/plavix as cardiology ckd-- stable htn-- continue cozaar and metoprolol stable hypothyroid-- continue home med 01/14- she complaint of headache -- no cp no sob -- she is hemodynamic stable -- h h -- stable -- after 2 units blood transfu stephanie -- continue monitor in ccu 01/15- she is stable no new event -- h h -- stable -post transfusion -- continue monitor in ccu 01/16-- she feel well -- ct of lower extremity 1. decreased size and near resolution of previo usly described hematoma in the superficial soft tissues of the medial aspect of the proximal thigh with drain in place. 2. new nonspecific enlargement and edema within the left adductor muscles. 3. slight increased size of possible pseudoaneur ysm near the common femoral artery bifurcation. -- manage as vascular surgeon -- monitor h h --7.6 bedside percutaneous ultrasound guided thrombin injection in the left common femoral artery pseudoaneurysm 15849 01/17- she feel well . no dizziness no cp no sob no abdominal pain -- h h --6.1-- transfuse 2 units blood -- continue monitor h h in icu 01/18- she is doing well -- h h -- 8--post transfusion -- continue monitor h h 01/19- she feel well -- continue bed rest as vascular surgeon -- h h --7.8 -- continue monitor h h 01/20-- she is doing well -- ambulate ok with vascular surgeon -- monitor h h 01/21 she ambulate h h -- stable [facility] continue monitor h h 01/22 low hgb, pending repeat. transfuse 1 unit p rbc if still <7. hold heparin for today since anemia and oozing at injection s ites. 01/23 s/p prbc. hgb 7.5. continue to monitor. 01/24- she feel well -- hb -- 7.4 -- today -- continue monitor h h med rec med rec discharge meds: continue taking these medications: clopidogrel (plavix) 75 mg tab 75 milligram oral daily. topiramate (topamax) 25 mg tab 25 milligram oral twice daily. omeprazole er (omeprazole er) 20 mg cap.dr 20 milligram oral daily. metoprolol tartrate (lopressor) 50 mg tab 50 milligram oral twice daily. losartan (cozaar) 25 mg tab 25 milligram oral daily. [prolia] 60 milligram subcutaneous every 6 mos tramadol (ultram) 50 mg tab 50 milligram oral every 6 hours as needed. as n eeded for acute pain aspirin (aspirin) 81 mg tab.chew 81 milligram oral daily. atorvastatin (lipitor) 40 mg tab 40 milligram oral bedtime. days = 90 qty = 90 levothyroxine (synthroid) 50 mcg tab 50 microgram oral daily. objective vs/i o last documented: result date time pulse ox 99 01/26 1612 b/p 148/79 01/25 161 b/p mean 102.0 01/25 161 o2 delivery room air 01/26 1612 temp 36.6 01/26 1612 pulse 84 01/25 161 resp 18 01/25 161 o2 flow rate 2 01/21 0400 fio2 21 01/13 0922 24 hour i o ending at 0700: 01/25 0700 01/24 1900 intake total 310.00 470 output total 0 balance 310.00 470 intake, iv 10.00 intake, oral 300 470 number 0 bowel movements number voids 1 output, stool 0 general appearance: alert, awake, oriented head/eyes: atraumatic, normal conjunctiva/sclera , normal eyelids/periorb., normocephalic neck: full range of motion, normal thyroid, no j vd cardiovascular: normal heart sounds, regular rat e rhythm respiratory: aerating well, clear to auscultatio n abdomen: non-tender, normal bowel sounds, soft, no distention extremities: moves all, no calf tenderness, no e pina (left groin hematoma ) neuro/software support representative: alert, oriented x 3, cnii-xii intact, normal speech, no motor deficits, no sensory deficits skin: abnormal color (lower abdomen ecchymosis), dry, intact results findings/data: laboratory tests: 01/25 01/25 01/25 0930 0500 0500 chemistry sodium (134 - 147 meq/l) 142 potassium (3.4 - 5.0 meq/l) 4.4 chloride (100 - 108 meq/l) 118 h carbon dioxide (21 - 33 meq/l) 14 l anion gap (0 - 20) 14 bun (7 - 18 mg/dl) 17 creatinine (0.6 - 1.3 mg/dl) 0.9 glomerular filtr rate (70 - 80) 59.9 l glucose (70 - 110 mg/dl) 69 l calcium (8.0 - 10.5 mg/dl) 6.8 l iron (35 - 150 mcg/dl) 52 ferritin (11.0 - 306.8 ng/ml) 75.1 hematology wbc (4.5 - 11.0 x10 3/ul) 14.5 h rbc (3.54 - 5.02 x10 6/ul) 2.53 l hgb (11.0 - 15.0 g/dl) 8.8 l 7.7 l hct (33.0 - 45.0 %) 27.6 l 25.1 l mcv (81.0 - 99.0 fl) 99.2 h mch (27.0 - 33.0 pg) 30.4 mchc (33.0 - 37.0 g/dl) 30.7 l rdw (11.5 - 14.5 %) 18.8 h plt count (150 - 400 x10 3/ul) 362 mpv (7.0 - 9.0 fl) 11.1 h neut % (auto) (56.0 - 77.0 %) 70.6 lymph % (auto) (14.0 - 32.0 %) 16.2 mono % (auto) (4.8 - 9.0 %) 7.0 eos % (auto) (0.3 - 3.7 %) 3.6 baso % (auto) (0.0 - 2.0 %) 0.9 neut # (auto) (2.0 - 7.6 x10 3/ul) 10.22 h lymph # (auto) (1.0 - 3.8 x10 3/ul) 2.35 mono # (auto) (0.1 - 0.8 x10 3/ul) 1.02 h eos # (auto) (0.0 - 0.2 x10 3/ul) 0.52 h baso # (auto) (0.0 - 0.2 x10 3/ul) 0.13 abs immat gran (auto) (0.00 - 0.03 x10 3/ul) 0. 25 h add manual diff no immature gran % (0.0 - 2.0 %) 1.7 nucleated rbc % (0 - 0 %) 0.0 nucleated rbcs # (man) (0.0 - 0.1 x10 3/ul) 0.0 0 discharge instructions pcp discharge to: home/self care additional discharge routines: pcp follow-up diet: cardiac activity: as tolerated follow-up appointments pcp follow-up: pcp: dinorah corbett v, md phone: [phone] pcp follow up timeframe: in 1-2 weeks attending physician: attending physician: rosa oscar md phone: [phone] consulting provider 1: provider 1: jerry dotson md phone: [phone] quality: discharge current medications current medication review: current medications sig/brandi start time last medication dose route stop time status admin calcium gluconate/ 50 ml once one 01/13 1115 dc 01/13 sodium chloride iv 01/13 1124 1204 aspirin 81 mg daily 01/13 900 ac 01/13 po 02/12 0859 0829 clopidogrel bisulfate 75 mg daily 01/13 900 ac 01/13 po 02/12 0859 0828 docusate sodium 100 mg bid 01/13 900 ac 01/13 po 02/12 0859 0829 losartan potassium 25 mg daily 01/13 900 ac po 02/12 0859 0829 metoprolol tartrate 50 mg bid 01/13 09 ac po 02/11 1544 0829 polyethylene glycol 17 gm daily 01/13 900 ac 0 01/13 po 02/12 0859 0828 levothyroxine sodium 50 mcg daily 01/13 06 00 ac 01/13 po 02/12 0559 0828 calcium gluconate/ 100 ml once one 01/13 0530 dc 01/13 sodium chloride iv 01/13 0549 0622 magnesium sulfate 100 ml once one 01/13 0530 dc 01/13 iv 01/13 0929 0622 sodium bicarbonate 50 meq once one 01/13 0530 d c 01/13 iv 01/13 0531 0621 albumin human 250 ml q1h 01/12 2230 dc 01/13 iv 01/12 2359 0058 sodium chloride 250 ml once one 01/12 2215 ac 01/13 iv 01/23 0814 0043 fentanyl citrate 50 mcg once one 01/12 2145 dc 01/12 iv 01/12 214 2151 fentanyl citrate 50 mcg once one 01/12 2115 dc iv 01/13 2116 fentanyl citrate 0 .stk-med one 01/12 2107 dc 0 01/12 iv 2112 atorvastatin calcium 40 mg bedtime 01/12 2100 a c po 02/11 2059 mupirocin 1 applic bid 01/12 2100 ac 01/13 nasal 01/17 topiramate 25 mg bid 01/12 2100 ac 01/13 po 02/11 glycopyrrolate 0 .stk-med one 01/12 193 dc .route neostigmine 0 .stk-med one 01/12 193 dc methylsulfate .route cefazolin sodium 0 .stk-med one 01/12 184 dc .route heparin sodium 0 .stk-med one 01/12 184 dc .route fentanyl citrate 0 .stk-med one 01/12 1820 dc .route etomidate 0 .stk-med one 01/12 181 dc iv propofol 20 ml .stk-med one 01/12 181 dc iv rocuronium bromide 0 .stk-med one 01/12 1814 dc iv succinylcholine 0 .stk-med one 01/12 181 dc chloride iv iopamidol 100 ml .stk-med one 01/12 1759 dc iv 01/12 1800 1759 heparin sodium 0 .stk-med one 01/12 1747 dc .route thrombin 0 .stk-med one 01/12 1747 dc topical tramadol hcl 50 mg q6h prn prn 01/12 1430 dc po 01/17 1429 atropine sulfate 0.5 mg asdir prn 01/12 1330 dc 01/12 iv 01/13 1324 1653 sodium chloride 1,000 ml .[id number] 01/12 1330 dc iv 01/13 0249 sodium chloride 500 ml asdir prn 01/12 1330 dc iv 01/13 1324 home medications: clopidogrel (plavix) 75 mg po daily topiramate (topamax) 25 mg po bid omeprazole er 20 mg po daily metoprolol tartrate (lopressor) 50 mg po bid losartan (cozaar) 25 mg po daily [prolia] 60 mg subq every 6 mos tramadol (ultram) 50 mg po q6h prn prn acute amadou n aspirin 81 mg po daily levothyroxine (synthroid) 50 mcg po daily atorvastatin (lipitor) 40 mg po bedtime i attest that the foregoing medication list in t he medical record is true, accurate, and complete to the best of my knowled ge. electronically signed by rosa oscar md on 2 at 1717 rpt #:[id number] end of report 2022-01-25 10:55:00-00:00 [facility] cardi[facility] progress note report#:[id number] report status: signed date:01/25/22 time: 1055 patient: falguni agarwal unit #: [id number] room/bed: [place] [address] : 39 age: 81 sex: f attend: kimo gill md adm dt: 01/13/22 author: siomara becker acnp * all edits or amendments must be made on the [employer]/computer document * subjective patient reports: no: complaints. objective general vs/i o: 24 hour i o ending at 0700: 01/25 0700 01/24 1900 intake total 310.00 470 output total 0 balance 310.00 470 intake, iv 10.00 intake, oral 300 470 number 0 bowel movements number voids 1 output, stool 0 vital signs: date time temp pulse resp b/p b/p pulse o2 o2 f low fio2 mean ox delivery rate 01/25 07 36.6 80 18 128/67 87.3 97 room air 01/25 0509 36.5 85 16 125/68 87.0 98 room air 01/25 0024 36.9 79 16 128/57 80.7 95 room air 01/24 1938 36.7 86 16 138/68 91.3 98 room air 01/24 1747 36.7 86 19 147/71 96.7 98 room air 01/24 1203 36.5 71 20 136/69 91.1 100 room air patient weight: weight (lb): 108 weight (oz): 0.42 weight (kg): 48.988 medications: active meds + dc'd last 24 hrs levalbuterol hcl (levalbuterol 1.25mg/3ml) 0.63 mg rtq6h prn prn inh sodium chloride (sodium chloride) 10 ml asdir iv heparin sodium (heparin 5000 units/ml) 5,000 uni t q8h subq losartan potassium (cozaar) 50 mg daily po bisacodyl (dulcolax) 10 mg daily prn prn rectal sodium chloride (sodium chloride) 10 ml asdir iv aspirin (aspirin) 81 mg daily po clopidogrel bisulfate (plavix) 75 mg daily po docusate sodium (colace) 100 mg bid po metoprolol tartrate (lopressor) 50 mg bid po polyethylene glycol (miralax) 17 gm daily po levothyroxine sodium (synthroid) 50 mcg daily 06 00 po atorvastatin calcium (lipitor) 40 mg bedtime po topiramate (topamax) 25 mg bid po status post: 01/16 lt groin pseudoaneurysm repair physical exam general appearance: alert, awake, oriented, no a cute distress head/eyes: atraumatic, clear cornea, eomi, jefferson l conjunctiva/sclera ent: moist mucosal membranes, normal nose neck: full range of motion, non-tender, no jvd, no masses or swelling cardiovascular: cv assessment: regular rate and rhythm, pedal p ulses present respiratory: decreased breath sounds, wheezing, no distress abdomen: soft, non-tender, normal bowel sounds, no distention genitourinary: no avilez upper extremity: ue assessment: normal temperature lower extremity: le assessment: normal capillary refill, normal temperature, no calf tenderness, no cyanosis musculoskeletal: normal inspection neuro/software support representative: alert, oriented x 3, normal speech wound/incision: location: left inner thigh with stable hematoma psychiatry: normal affect, normal judgment/insig ht, normal mood results findings/data: laboratory tests 01/25 01/25 0500 0500 chemistry sodium (134 - 147 meq/l) 142 potassium (3.4 - 5.0 meq/l) 4.4 chloride (100 - 108 meq/l) 118 h carbon dioxide (21 - 33 meq/l) 14 l anion gap (0 - 20) 14 bun (7 - 18 mg/dl) 17 creatinine (0.6 - 1.3 mg/dl) 0.9 glomerular filtr rate (70 - 80) 59.9 l glucose (70 - 110 mg/dl) 69 l calcium (8.0 - 10.5 mg/dl) 6.8 l iron (35 - 150 mcg/dl) 52 ferritin (11.0 - 306.8 ng/ml) 75.1 laboratory tests 01/25 01/25 0930 0500 hematology wbc (4.5 - 11.0 x10 3/ul) 14.5 h rbc (3.54 - 5.02 x10 6/ul) 2.53 l hgb (11.0 - 15.0 g/dl) 8.8 l 7.7 l hct (33.0 - 45.0 %) 27.6 l 25.1 l mcv (81.0 - 99.0 fl) 99.2 h mch (27.0 - 33.0 pg) 30.4 mchc (33.0 - 37.0 g/dl) 30.7 l rdw (11.5 - 14.5 %) 18.8 h plt count (150 - 400 x10 3/ul) 362 mpv (7.0 - 9.0 fl) 11.1 h neut % (auto) (56.0 - 77.0 %) 70.6 lymph % (auto) (14.0 - 32.0 %) 16.2 mono % (auto) (4.8 - 9.0 %) 7.0 eos % (auto) (0.3 - 3.7 %) 3.6 baso % (auto) (0.0 - 2.0 %) 0.9 neut # (auto) (2.0 - 7.6 x10 3/ul) 10.22 h lymph # (auto) (1.0 - 3.8 x10 3/ul) 2.35 mono # (auto) (0.1 - 0.8 x10 3/ul) 1.02 h eos # (auto) (0.0 - 0.2 x10 3/ul) 0.52 h baso # (auto) (0.0 - 0.2 x10 3/ul) 0.13 abs immat gran (auto) (0.00 - 0.03 x10 3/ul) 0. 25 h add manual diff no immature gran % (0.0 - 2.0 %) 1.7 nucleated rbc % (0 - 0 %) 0.0 nucleated rbcs # (man) (0.0 - 0.1 x10 3/ul) 0.0 0 results: labs reviewed, vital signs reviewed diagnosis, assessment plan plan discussed with: patient, family, nurse free text dxa p notes free text dxa p notes: 81 y/o f w/ pmhx of htn, cad s/p rca stents in j eleno 2021, oa, ckd stage iii, lung cancer (in remission) who presented to [facility] c for elective [facility] cad s/p 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 continue plavix, asa, bb, and statin anemia secondary to grin hematoma stable h/h s/p transfusion - up to 8.8 transfuse if hgb less then 7 htn continue losartan, metoprolol ef 55-60% w/ grade 1 d bp stable oa stable ckd stage iii stable continue pt/ot okay to dc from cardology if ok with vascular de leon connor f/u with dr. carolynn jones. electronically signed by siomara becker cnp on 01/25/22 at 1059 electronically signed by lane corbin md on at 1228 rpt #:[id number] end of report 2022-01-24 15:15:00-00:00 [facility] cardiology progress note report#:[id number] report status: signed date:01/24/22 time: 1515 patient: falguni agarwal unit #: [id number] room/bed: [address] : 39 age: 81 sex: f attend: kimo gill md adm dt: 01/13/22 author: siomara becker cnp * all edits or amendments must be made on the [employer]/computer document * subjective comments: states she is feeling better. able to work with pt today objective general vs/i o: 24 hour i o ending at 0700: 01/24 0700 01/23 1900 intake total 210.00 240 output total 0 balance 210.00 240 intake, iv 10.00 intake, oral 200 240 number 0 bowel movements number voids 2 output, stool 0 vital signs: date time temp pulse resp b/p b/p pulse o2 o2 f low fio2 mean ox delivery rate 01/24 1203 36.5 71 20 136/69 91.1 100 room air 01/24 0805 36.8 86 16 144/76 99.0 98 room air 01/24 0457 36.6 79 16 148/75 99.5 97 room air 01/23 2310 36.8 69 16 136/72 92.9 99 room air 01/23 1924 36.8 80 16 120/64 82.6 97 room air 01/23 1557 36.5 76 18 132/70 90.8 100 room air patient weight: weight (lb): 108 weight (oz): 0.42 weight (kg): 48.988 medications: active meds + dc'd last 24 hrs sodium chloride (sodium chloride) 10 ml asdir iv heparin sodium (heparin 5000 units/ml) 5,000 uni t q8h subq (r) losartan potassium (cozaar) 50 mg daily po bisacodyl (dulcolax) 10 mg daily prn prn rectal sodium chloride (sodium chloride) 10 ml asdir iv aspirin (aspirin) 81 mg daily po clopidogrel bisulfate (plavix) 75 mg daily po docusate sodium (colace) 100 mg bid po metoprolol tartrate (lopressor) 50 mg bid po polyethylene glycol (miralax) 17 gm daily po levothyroxine sodium (synthroid) 50 mcg daily 06 00 po atorvastatin calcium (lipitor) 40 mg bedtime po topiramate (topamax) 25 mg bid po physical exam general appearance: alert, awake, oriented, no a cute distress head/eyes: atraumatic, clear cornea, eomi, jefferson l conjunctiva/sclera ent: moist mucosal membranes, normal nose neck: full range of motion, non-tender, no jvd, no masses or swelling cardiovascular: cv assessment: regular rate and rhythm, pedal p ulses present respiratory: decreased breath sounds, wheezing, no distress abdomen: soft, non-tender, normal bowel sounds, no distention genitourinary: no avilez upper extremity: ue assessment: normal temperature lower extremity: le assessment: normal capillary refill, normal temperature, no calf tenderness, no cyanosis musculoskeletal: normal inspection neuro/software support representative: alert, oriented x 3, normal speech wound/incision: location: left inner thigh with stable hematoma psychiatry: normal affect, normal judgment/insig ht, normal mood results findings/data: laboratory tests 01/24 405 chemistry sodium (134 - 147 meq/l) 140 potassium (3.4 - 5.0 meq/l) 4.5 chloride (100 - 108 meq/l) 117 h carbon dioxide (21 - 33 meq/l) 16 l anion gap (0 - 20) 11 bun (7 - 18 mg/dl) 21 h creatinine (0.6 - 1.3 mg/dl) 1.0 glomerular filtr rate (70 - 80) 53.1 l glucose (70 - 110 mg/dl) 93 calcium (8.0 - 10.5 mg/dl) 7.7 l laboratory tests 01/24 405 hematology wbc (4.5 - 11.0 x10 3/ul) 13.0 h rbc (3.54 - 5.02 x10 6/ul) 2.44 l hgb (11.0 - 15.0 g/dl) 7.4 l hct (33.0 - 45.0 %) 23.0 l mcv (81.0 - 99.0 fl) 94.3 mch (27.0 - 33.0 pg) 30.3 mchc (33.0 - 37.0 g/dl) 32.2 l rdw (11.5 - 14.5 %) 18.6 h plt count (150 - 400 x10 3/ul) 350 mpv (7.0 - 9.0 fl) 10.9 h neut % (auto) (56.0 - 77.0 %) 69.0 lymph % (auto) (14.0 - 32.0 %) 15.4 mono % (auto) (4.8 - 9.0 %) 8.6 eos % (auto) (0.3 - 3.7 %) 4.1 h baso % (auto) (0.0 - 2.0 %) 0.7 neut # (auto) (2.0 - 7.6 x10 3/ul) 8.94 h lymph # (auto) (1.0 - 3.8 x10 3/ul) 1.99 mono # (auto) (0.1 - 0.8 x10 3/ul) 1.12 h eos # (auto) (0.0 - 0.2 x10 3/ul) 0.53 h baso # (auto) (0.0 - 0.2 x10 3/ul) 0.09 abs immat gran (auto) (0.00 - 0.03 x10 3/ul) 0. 28 h add manual diff no immature gran % (0.0 - 2.0 %) 2.2 h nucleated rbc % (0 - 0 %) 0.0 nucleated rbcs # (man) (0.0 - 0.1 x10 3/ul) 0.0 0 results: labs reviewed, vital signs reviewed, vi jayne signs stable, rhythm personally rev'd telemetry interpretation: sinus rhythm diagnosis, assessment plan plan discussed with: patient, family free text dxa p notes free text dxa p notes: 81 y/o f w/ pmhx of htn, cad s/p rca stents in j [place] 2021, oa, ckd stage iii, lung cancer (in remission) who presented to [facility] c for elective [facility] cad s/p 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 continue plavix, asa, bb, and statin hh dropped today, 6.2 anemia secondary to groin hematoma stable s/p transfusion continue to monitor hgb hovering around 7.5 transfuse if hgb less then 7 htn on losartan, metoprolol ef 55-60% w/ grade 1 d continue to monitor bp stable oa stable ckd stage iii stable continue pt/ot electronically signed by siomara becker cnp on 01/24/22 at 1523 electronically signed by lane corbin md on at 1228 rpt #:[id number] end of report 2022-01-24 11:48:00-00:00 [facility] progress note report#:[id number] report status: signed date:01/24/22 time: 1148 patient: falguni agarwal unit #: [id number] room/bed: 4407-1 : 39 age: 81 sex: f attend: kimo gill md adm dt: 01/13/22 author: rosa oscar md * all edits or amendments must be made on the [employer]/computer document * subjective chief complaint: she feel well . no complaint hpi: 81 years old female with pmh cad with stents , c kd3 , hx of lung cancer had elective cath yesterday . she developed hematoma on the left femoral site and hypotension . she was given blood transfusion . vascular surgeon was consulted . she had repair sugery yesterday . she was admitt ed to the ccu . now she feel well . no cp no sob no dizziness no nausea no vo miting review of systems constitutional: denies: fatigue, fever, lethargy. respiratory: denies: productive cough (sputum), sob, wheezing . cardiovascular: denies: chest pain, shah (dyspnea on exertion), e pina, orthopnea. gi: denies: abdominal pain, nausea, vomiting. neuro: denies: dizziness. objective general vs/i o: vital signs: date time temp pulse resp b/p b/p pulse o2 o2 f low fio2 mean ox delivery rate 01/24 0805 36.8 86 16 144/76 99.0 98 room air 01/24 0457 36.6 79 16 148/75 99.5 97 room air 01/23 2310 36.8 69 16 136/72 92.9 99 room air 01/23 1924 36.8 80 16 120/64 82.6 97 room air 01/23 1557 36.5 76 18 132/70 90.8 100 room air 24 hour i o ending at 0700: 01/24 0700 01/23 1900 intake total 210.00 240 output total 0 balance 210.00 240 intake, iv 10.00 intake, oral 200 240 number 0 bowel movements number voids 2 output, stool 0 patient weight: weight (lb): 108 weight (oz): 0.42 weight (kg): 48.988 medications: active meds + dc'd last 24 hrs sodium chloride (sodium chloride) 10 ml asdir iv heparin sodium (heparin 5000 units/ml) 5,000 uni t q8h subq (r) losartan potassium (cozaar) 50 mg daily po bisacodyl (dulcolax) 10 mg daily prn prn rectal sodium chloride (sodium chloride) 10 ml asdir iv aspirin (aspirin) 81 mg daily po clopidogrel bisulfate (plavix) 75 mg daily po docusate sodium (colace) 100 mg bid po metoprolol tartrate (lopressor) 50 mg bid po polyethylene glycol (miralax) 17 gm daily po levothyroxine sodium (synthroid) 50 mcg daily 06 00 po atorvastatin calcium (lipitor) 40 mg bedtime po topiramate (topamax) 25 mg bid po physical exam general appearance: alert, awake, oriented head/eyes: atraumatic, normal conjunctiva/sclera , normal eyelids/periorb., normocephalic neck: full range of motion, normal thyroid, no j vd cardiovascular: normal heart sounds, regular rat e rhythm respiratory: aerating well, clear to auscultatio n abdomen: non-tender, normal bowel sounds, soft, no distention extremities: moves all, no calf tenderness, no e pina (left groin hematoma ) neuro/software support representative: alert, oriented x 3, cnii-xii intact, normal speech, no motor deficits, no sensory deficits skin: abnormal color (lower abdomen ecchymosis), dry, intact results findings/data: laboratory tests 01/24 405 chemistry sodium (134 - 147 meq/l) 140 potassium (3.4 - 5.0 meq/l) 4.5 chloride (100 - 108 meq/l) 117 h carbon dioxide (21 - 33 meq/l) 16 l anion gap (0 - 20) 11 bun (7 - 18 mg/dl) 21 h creatinine (0.6 - 1.3 mg/dl) 1.0 glomerular filtr rate (70 - 80) 53.1 l glucose (70 - 110 mg/dl) 93 calcium (8.0 - 10.5 mg/dl) 7.7 l laboratory tests 01/24 405 hematology wbc (4.5 - 11.0 x10 3/ul) 13.0 h rbc (3.54 - 5.02 x10 6/ul) 2.44 l hgb (11.0 - 15.0 g/dl) 7.4 l hct (33.0 - 45.0 %) 23.0 l mcv (81.0 - 99.0 fl) 94.3 mch (27.0 - 33.0 pg) 30.3 mchc (33.0 - 37.0 g/dl) 32.2 l rdw (11.5 - 14.5 %) 18.6 h plt count (150 - 400 x10 3/ul) 350 mpv (7.0 - 9.0 fl) 10.9 h neut % (auto) (56.0 - 77.0 %) 69.0 lymph % (auto) (14.0 - 32.0 %) 15.4 mono % (auto) (4.8 - 9.0 %) 8.6 eos % (auto) (0.3 - 3.7 %) 4.1 h baso % (auto) (0.0 - 2.0 %) 0.7 neut # (auto) (2.0 - 7.6 x10 3/ul) 8.94 h lymph # (auto) (1.0 - 3.8 x10 3/ul) 1.99 mono # (auto) (0.1 - 0.8 x10 3/ul) 1.12 h eos # (auto) (0.0 - 0.2 x10 3/ul) 0.53 h baso # (auto) (0.0 - 0.2 x10 3/ul) 0.09 abs immat gran (auto) (0.00 - 0.03 x10 3/ul) 0. 28 h add manual diff no immature gran % (0.0 - 2.0 %) 2.2 h nucleated rbc % (0 - 0 %) 0.0 nucleated rbcs # (man) (0.0 - 0.1 x10 3/ul) 0.0 0 treatment prophylaxis treatment prophylaxis anti-hypertensives: losartan potassium diagnosis, assessment plan consultants: cardiology, cardiovascular surgery, colorectal surgery free text dxa p notes free text dxa p notes: hemorrhage from left femoral artery left common femoral artery pseudoaneurysm anemia due to acute blood loss acute respiratory failure --post procedure cad ckd3 htn hypothyroid hemorrhage from left femoral artery anemia due to acute blood loss vascular surgeon consult -- repair artery --yes terday monitor in ccu transfuse 2 units rbbc monitor h h -- transfuse if < 7 respiratory failure post procedure -- now resolve extubated in the ccu cad with stents cardiology consult asa/plavix as cardiology ckd-- stable htn-- continue cozaar and metoprolol stable hypothyroid-- continue home med 01/14- she complaint of headache -- no cp no sob -- she is hemodynamic stable -- h h -- stable -- after 2 units blood transfu stephanie -- continue monitor in ccu 01/15- she is stable no new event -- h h -- stable -post transfusion -- continue monitor in ccu 01/16-- she feel well -- ct of lower extremity 1. decreased size and near resolution of previo usly described hematoma in the superficial soft tissues of the medial aspect of the proximal thigh with drain in place. 2. new nonspecific enlargement and edema within the left adductor muscles. 3. slight increased size of possible pseudoaneur ysm near the common femoral artery bifurcation. -- manage as vascular surgeon -- monitor h h --7.6 bedside percutaneous ultrasound guided thrombin injection in the left common femoral artery pseudoaneurysm 46560 01/17- she feel well . no dizziness no cp no sob no abdominal pain -- h h --6.1-- transfuse 2 units blood -- continue monitor h h in icu 01/18- she is doing well -- h h -- 8--post transfusion -- continue monitor h h 01/19- she feel well -- continue bed rest as vascular surgeon -- h h --7.8 -- continue monitor h h 01/20-- she is doing well -- ambulate ok with vascular surgeon -- monitor h h 01/21 she ambulate h h -- stable ok to transfer to tele continue monitor h h 01/22 low hgb, pending repeat. transfuse 1 unit p rbc if still <7. hold heparin for today since anemia and oozing at injection s ites. 01/23 s/p prbc. hgb 7.5. continue to monitor. 01/24- she feel well -- hb -- 7.4 -- today -- continue monitor h h electronically signed by rosa oscar md on 2 at 1803 [facility] #:[id number] end of report 2022-01-23 18:36:00-00:00 [facility] vascular surgery progress note report#:[id number] report status: signed date:01/23/22 time: 1836 patient: falguni agarwal unit #: [id number] room/bed: [place] [address] : 39 age: 81 sex: f attend: kimo gill md adm dt: 01/13/22 author: jerry dotson md * all edits or amendments must be made on the [employer] document * general status post: left groin exploration with repair of common fem oral artery subjective chief complaint: cad, left groin hematoma hpi patient left groin thrombosed hematoma stable. p ain controlled. appropriate response to prbc's. review of systems constitutional: denies: chills, fever. skin: reports: ecchymosis. denies: itching, rash. respiratory: denies: sob, wheezing. cardiovascular: denies: chest pain, palpitations. gi: denies: abdominal pain, hematochezia. gu: denies: dysuria, frequency, hematuria. heme: reports: bleeding. denies: bruising. all systems rev neg: except as marked objective general vs/i o: last documented: result date time pulse ox 100 01/23 1557 b/p 132/70 01/23 1557 b/p mean 90.8 01/23 1557 o2 delivery room air 01/23 1557 temp 97.7 01/23 1557 pulse 76 01/23 1557 resp 18 01/23 1557 o2 flow rate 2 01/21 0400 fio2 21 01/13 922 24 hour i o ending at 0700: 01/23 0700 01/22 1900 intake total 480 980 output total balance 480 980 intake, iv 10 500 intake, oral 120 480 intake, 350 packed cells number voids 1 patient weight: weight (lb): 108 weight (oz): 0.42 weight (kg): 48.988 physical exam general appearance: alert, awake, oriented head/eyes: atraumatic, normal conjunctiva/sclera , normal eyelids/periorb., normocephalic neck: full range of motion, normal thyroid, no j vd cardiovascular: normal heart sounds, regular rat e rhythm respiratory: aerating well, symmpetricla chest r ise abdomen: non-tender, soft, no distention extremities: moves all, no calf tenderness, no e pina (left groin hematoma ) neuro/software support representative: alert, oriented x 3, cnii-xii intact, normal speech skin: abnormal color (lower abdomen ecchymosis), dry, intact medications: active meds + dc'd last 24 hrs sodium chloride (sodium chloride) 10 ml asdir iv sodium chloride (sodium chloride 0.9%) 500 ml on ce one iv (dc) heparin sodium (heparin 5000 units/ml) 5,000 uni t q8h subq (r) losartan potassium (cozaar) 50 mg daily po bisacodyl (dulcolax) 10 mg daily prn prn rectal sodium chloride (sodium chloride) 10 ml asdir iv aspirin (aspirin) 81 mg daily po clopidogrel bisulfate (plavix) 75 mg daily po docusate sodium (colace) 100 mg bid po metoprolol tartrate (lopressor) 50 mg bid po polyethylene glycol (miralax) 17 gm daily po levothyroxine sodium (synthroid) 50 mcg daily 06 00 po sodium chloride (sodium chloride 0.9%) 250 ml on ce one iv (dc) atorvastatin calcium (lipitor) 40 mg bedtime po topiramate (topamax) 25 mg bid po results findings/data: laboratory tests 01/23 0549 hematology wbc (4.5 - 11.0 x10 3/ul) 11.8 h rbc (3.54 - 5.02 x10 6/ul) 2.47 l hgb (11.0 - 15.0 g/dl) 7.5 l hct (33.0 - 45.0 %) 23.3 l mcv (81.0 - 99.0 fl) 94.3 mch (27.0 - 33.0 pg) 30.4 mchc (33.0 - 37.0 g/dl) 32.2 l rdw (11.5 - 14.5 %) 18.6 h plt count (150 - 400 x10 3/ul) 336 mpv (7.0 - 9.0 fl) 11.1 h neut % (auto) (56.0 - 77.0 %) 69.9 lymph % (auto) (14.0 - 32.0 %) 14.2 mono % (auto) (4.8 - 9.0 %) 9.2 h eos % (auto) (0.3 - 3.7 %) 3.8 h baso % (auto) (0.0 - 2.0 %) 0.9 neut # (auto) (2.0 - 7.6 x10 3/ul) 8.23 h lymph # (auto) (1.0 - 3.8 x10 3/ul) 1.67 mono # (auto) (0.1 - 0.8 x10 3/ul) 1.09 h eos # (auto) (0.0 - 0.2 x10 3/ul) 0.45 h baso # (auto) (0.0 - 0.2 x10 3/ul) 0.11 abs immat gran (auto) (0.00 - 0.03 x10 3/ul) 0. 24 h add manual diff no immature gran % (0.0 - 2.0 %) 2.0 nucleated rbc % (0 - 0 %) 0.2 h nucleated rbcs # (man) (0.0 - 0.1 x10 3/ul) 0. 02 diagnosis, assessment plan free text a p: patient with left groin hemt marisa. considering the patients age and comorbidities, continue conservative management and monitor hgb . bed rest, ok to get up to bathroom. if patient continues to have indicatio ns of bleeding, will plan angiogram. consultants: cardiology, cardiovascular surgery, colorectal surgery electronically signed by jerry dotson md on 01/23/22 at 1842 rpt #:[id number] end of report 2022-01-23 11:15:00-00:00 [facility] hospitalist progress note report#:[id number] report status: signed date:01/23/22 time: 1115 patient: falguni agarwal unit #: [id number] room/bed: 4407-1 : 39 age: 81 sex: f attend: kimo gill md adm dt: 01/13/22 author: yessica hernandez aprn * all edits or amendments must be made on the [employer] document * subjective chief complaint: playing cards with visitor denies active bleed s/p prbc hpi: 81 years old female with pmh cad with stents , c kd3 , hx of lung cancer had elective cath yesterday . she developed hematoma on the left femoral site and hypotension . she was given blood transfusion . vascular surgeon was consulted . she had repair sugery yesterday . she was admitt ed to the ccu . now she feel well . no cp no sob no dizziness no nausea no vo miting review of systems constitutional: denies: chills, fever. skin: reports: ecchymosis. denies: itching, rash. respiratory: denies: sob, wheezing. cardiovascular: denies: chest pain, palpitations. gi: denies: abdominal pain, hematochezia. gu: denies: dysuria, frequency, hematuria. heme: reports: bleeding. denies: bruising. all systems rev neg: except as marked objective general vs/i o: vital signs: date time temp pulse resp b/p b/p pulse o2 o2 f low fio2 mean ox delivery rate 01/23 0714 36.9 79 18 129/66 87.2 97 room air 01/23 0432 36.5 78 16 154/71 98.6 95 room air 01/22 2323 36.7 76 16 144/56 85.5 97 room air 01/22 2021 36.7 81 18 122/56 98 01/22 1957 36.8 79 16 144/61 88.5 96 room air 01/22 1836 37.0 81 15 114/61 78.8 99 01/22 1803 36.9 82 15 125/63 83.8 99 01/22 1621 36.7 81 18 97/59 72.0 100 room air 24 hour i o ending at 0700: 01/23 0700 01/22 1900 intake total 480 980 output total balance 480 980 intake, iv 10 500 intake, oral 120 480 intake, 350 packed cells number voids 1 patient weight: weight (lb): 108 weight (oz): 0.42 weight (kg): 48.988 medications: active meds + dc'd last 24 hrs sodium chloride (sodium chloride) 10 ml asdir iv sodium chloride (sodium chloride 0.9%) 500 ml on ce one iv (dc) heparin sodium (heparin 5000 units/ml) 5,000 uni t q8h subq (r) losartan potassium (cozaar) 50 mg daily po bisacodyl (dulcolax) 10 mg daily prn prn rectal sodium chloride (sodium chloride) 10 ml asdir iv aspirin (aspirin) 81 mg daily po clopidogrel bisulfate (plavix) 75 mg daily po docusate sodium (colace) 100 mg bid po metoprolol tartrate (lopressor) 50 mg bid po polyethylene glycol (miralax) 17 gm daily po levothyroxine sodium (synthroid) 50 mcg daily 06 00 po sodium chloride (sodium chloride 0.9%) 250 ml on ce one iv (dc) atorvastatin calcium (lipitor) 40 mg bedtime po topiramate (topamax) 25 mg bid po physical exam general appearance: alert, awake, oriented head/eyes: atraumatic, normal conjunctiva/sclera , normal eyelids/periorb., normocephalic neck: full range of motion, normal thyroid, no j vd cardiovascular: normal heart sounds, regular rat e rhythm respiratory: aerating well, clear to auscultatio n abdomen: non-tender, normal bowel sounds, soft, no distention extremities: moves all, no calf tenderness, no e pina (left groin hematoma ) neuro/software support representative: alert, oriented x 3, cnii-xii intact, normal speech, no motor deficits, no sensory deficits skin: abnormal color (lower abdomen ecchymosis), dry, intact results findings/data: laboratory tests 01/23 0549 hematology wbc (4.5 - 11.0 x10 3/ul) 11.8 h rbc (3.54 - 5.02 x10 6/ul) 2.47 l hgb (11.0 - 15.0 g/dl) 7.5 l hct (33.0 - 45.0 %) 23.3 l mcv (81.0 - 99.0 fl) 94.3 mch (27.0 - 33.0 pg) 30.4 mchc (33.0 - 37.0 g/dl) 32.2 l rdw (11.5 - 14.5 %) 18.6 h plt count (150 - 400 x10 3/ul) 336 mpv (7.0 - 9.0 fl) 11.1 h neut % (auto) (56.0 - 77.0 %) 69.9 lymph % (auto) (14.0 - 32.0 %) 14.2 mono % (auto) (4.8 - 9.0 %) 9.2 h eos % (auto) (0.3 - 3.7 %) 3.8 h baso % (auto) (0.0 - 2.0 %) 0.9 neut # (auto) (2.0 - 7.6 x10 3/ul) 8.23 h lymph # (auto) (1.0 - 3.8 x10 3/ul) 1.67 mono # (auto) (0.1 - 0.8 x10 3/ul) 1.09 h eos # (auto) (0.0 - 0.2 x10 3/ul) 0.45 h baso # (auto) (0.0 - 0.2 x10 3/ul) 0.11 abs immat gran (auto) (0.00 - 0.03 x10 3/ul) 0. 24 h add manual diff no immature gran % (0.0 - 2.0 %) 2.0 nucleated rbc % (0 - 0 %) 0.2 h nucleated rbcs # (man) (0.0 - 0.1 x10 3/ul) 0.0 2 diagnosis, assessment plan consultants: cardiology, cardiovascular surgery, colorectal surgery free text dxa p notes free text dxa p notes: hemorrhage from left femoral artery left common femoral artery pseudoaneurysm anemia due to acute blood loss acute respiratory failure --post procedure cad ckd3 htn hypothyroid hemorrhage from left femoral artery anemia due to acute blood loss vascular surgeon consult -- repair artery --yes terday monitor in ccu transfuse 2 units rbbc monitor h h -- transfuse if < 7 respiratory failure post procedure -- now resolve extubated in the ccu cad with stents cardiology consult asa/plavix as cardiology ckd-- stable htn-- continue cozaar and metoprolol stable hypothyroid-- continue home med 01/14- she complaint of headache -- no cp no sob -- she is hemodynamic stable -- h h -- stable -- after 2 units blood transf usion -- continue monitor in ccu 01/15- she is stable no new event -- h h -- stable -post transfusion -- continue monitor in ccu 01/16-- she feel well -- ct of lower extremity 1. decreased size and near resolution of previo usly described hematoma in the superficial soft tissues of the medial aspect of the proximal thigh with drain in place. 2. new nonspecific enlargement and edema within the left adductor muscles. 3. slight increased size of possible pseudoaneur ysm near the common femoral artery bifurcation. -- manage as vascular surgeon -- monitor h h --7.6 bedside percutaneous ultrasound guided thrombin injection in the left common femoral artery pseudoaneurysm 12567 01/17- she feel well . no dizziness no cp no sob no abdominal pain -- h h --6.1-- transfuse 2 units blood -- continue monitor h h in icu 01/18- she is doing well -- h h -- 8--post transfusion -- continue monitor h h 01/19- she feel well -- continue bed rest as vascular surgeon -- h h --7.8 -- continue monitor h h 01/20-- she is doing well -- ambulate ok with vascular surgeon -- monitor h h 01/21 she ambulate h h -- stable [facility] continue monitor h h 01/22 low hgb, pending repeat. transfuse 1 unit p rbc if still <7. hold heparin for today since anemia and oozing at injection s ites. 01/23 s/p prbc. hgb 7.5. continue to monitor. deposition -- home if ok with consultants electronically signed by yessica hernandez aprn on at 1655 electronically signed by sanju gill md on 0 01/31/22 at 1303 rpt #:[id number] end of report 2022-01-22 11:01:00-00:00 [facility] hospitalist progress note report#:[id number] report status: signed date:01/22/22 time: 1101 patient: falguni agarwal unit #: [id number] room/bed: [place] [address] : 39 age: 81 sex: f attend: kimo gill md adm dt: 01/13/22 author: yessica hernandez aprn * all edits or amendments must be made on the [employer]/computer document * subjective chief complaint: no new complaints, hgb low but no overt bleed, she reports bleeding at heparin injection sites hpi: 81 years old female with pmh cad with stents , c kd3 , hx of lung cancer had elective cath yesterday . she developed hematoma on the left femoral site and hypotension . she was given blood transfusion . vascular surgeon was consulted . she had repair sugery yesterday . she was admitt ed to the ccu . now she feel well . no cp no sob no dizziness no nausea no vo miting review of systems constitutional: denies: fatigue, fever. respiratory: denies: sob, wheezing. cardiovascular: denies: chest pain, palpitations. gi: denies: abdominal pain, nausea, rectal pain. gu: denies: dysuria, hematuria. heme: reports: bleeding, bruising. all systems rev neg: except as marked objective general vs/i o: vital signs: date time temp pulse resp b/p b/p pulse o2 o2 f low fio2 mean ox delivery rate 01/22 0704 36.9 81 18 122/68 85.7 98 room air 01/22 0443 37.1 82 16 116/62 80.2 97 room air 01/21 2341 36.9 82 16 113/64 80.3 96 room air 01/21 2129 36.8 86 16 109/64 79.1 96 room air 01/21 2004 87 33 109/59 80 100 01/21 2000 37.1 01/21 1600 36.9 01/21 1200 36.9 01/21 1140 85 36 112/53 77 100 24 hour i o ending at 0700: 01/22 0700 01/21 1900 intake total 240 output total 600 balance -360 intake, oral 240 output, urine 600 patient 48.988 kg weight patient weight: weight (lb): 108 weight (oz): 0.42 weight (kg): 48.988 medications: active meds + dc'd last 24 hrs sodium chloride (sodium chloride) 10 ml asdir iv sodium chloride (sodium chloride 0.9%) 500 ml on ce one iv heparin sodium (heparin 5000 units/ml) 5,000 uni t q8h subq losartan potassium (cozaar) 50 mg daily po bisacodyl (dulcolax) 10 mg daily prn prn rectal sodium chloride (sodium chloride) 10 ml asdir iv aspirin (aspirin) 81 mg daily po clopidogrel bisulfate (plavix) 75 mg daily po docusate sodium (colace) 100 mg bid po metoprolol tartrate (lopressor) 50 mg bid po polyethylene glycol (miralax) 17 gm daily po levothyroxine sodium (synthroid) 50 mcg daily 06 00 po sodium chloride (sodium chloride 0.9%) 250 ml on ce one iv atorvastatin calcium (lipitor) 40 mg bedtime po topiramate (topamax) 25 mg bid po physical exam general appearance: alert, awake, oriented head/eyes: atraumatic, normal conjunctiva/sclera , normal eyelids/periorb., normocephalic neck: full range of motion, normal thyroid, no j vd cardiovascular: normal heart sounds, regular rat e rhythm respiratory: aerating well, clear to auscultatio n abdomen: non-tender, normal bowel sounds, soft, no distention extremities: moves all, no calf tenderness, no e pina (left groin hematoma ) neuro/software support representative: alert, oriented x 3, cnii-xii intact, normal speech, no motor deficits, no sensory deficits skin: abnormal color (lower abdomen ecchymosis), dry, intact results findings/data: laboratory tests 01/22 0500 chemistry sodium (134 - 147 meq/l) 139 potassium (3.4 - 5.0 meq/l) 4.4 chloride (100 - 108 meq/l) 113 h carbon dioxide (21 - 33 meq/l) 19 l anion gap (0 - 20) 12 bun (7 - 18 mg/dl) 43 h creatinine (0.6 - 1.3 mg/dl) 1.3 glomerular filtr rate (70 - 80) 39.2 l glucose (70 - 110 mg/dl) 103 calcium (8.0 - 10.5 mg/dl) 8.1 ionized calcium racquel (1.09 - 1.30 mmol/l) 1.16 phosphorus (2.5 - 4.9 mg/dl) 2.9 magnesium (1.80 - 2.40 mg/dl) 2.16 laboratory tests 01/22 0500 hematology wbc (4.5 - 11.0 x10 3/ul) 14.0 h rbc (3.54 - 5.02 x10 6/ul) 1.99 l hgb (11.0 - 15.0 g/dl) 6.2 *l hct (33.0 - 45.0 %) 19.7 l mcv (81.0 - 99.0 fl) 99.0 mch (27.0 - 33.0 pg) 31.2 mchc (33.0 - 37.0 g/dl) 31.5 l rdw (11.5 - 14.5 %) 15.8 h plt count (150 - 400 x10 3/ul) 354 mpv (7.0 - 9.0 fl) 11.2 h neut % (auto) (56.0 - 77.0 %) 76.0 lymph % (auto) (14.0 - 32.0 %) 10.8 l mono % (auto) (4.8 - 9.0 %) 7.8 eos % (auto) (0.3 - 3.7 %) 3.4 baso % (auto) (0.0 - 2.0 %) 0.6 neut # (auto) (2.0 - 7.6 x10 3/ul) 10.65 h lymph # (auto) (1.0 - 3.8 x10 3/ul) 1.51 mono # (auto) (0.1 - 0.8 x10 3/ul) 1.10 h eos # (auto) (0.0 - 0.2 x10 3/ul) 0.48 h baso # (auto) (0.0 - 0.2 x10 3/ul) 0.09 abs immat gran (auto) (0.00 - 0.03 x10 3/ul) 0. 19 h add manual diff no immature gran % (0.0 - 2.0 %) 1.4 nucleated rbc % (0 - 0 %) 0.0 nucleated rbcs # (man) (0.0 - 0.1 x10 3/ul) 0.0 0 laboratory tests 01/21 2050 urines urine color (yel/straw) yellow urine appearance (clear) cloudy h urine ph (5.0 - 7.0) 5.0 ur specific gravity (1.005 - 1.030) 1.014 urine protein (negative) 1+ h urine glucose (ua) (negative) negative urine ketones (negative) negative urine blood (negative) 2+ h urine nitrite (negative) negative urine bilirubin (negative) negative urine urobilinogen (0.2 - 1.0 mg/dl) 0.2 ur leukocyte esterase (negative) 3+ h urine rbc (0 - 3 rbc/hpf) 11-20 urine wbc (0 - 3 wbc/hpf) >50 h ur squamous epith cells (none seen /hpf) 6-10 h urine bacteria (none seen /hpf) 3+ h urine mucus (none seen /lpf) trace diagnosis, assessment plan consultants: cardiology, cardiovascular surgery, colorectal surgery free text dxa p notes free text dxa p notes: hemorrhage from left femoral artery left common femoral artery pseudoaneurysm anemia due to acute blood loss acute respiratory failure --post procedure cad ckd3 htn hypothyroid hemorrhage from left femoral artery anemia due to acute blood loss vascular surgeon consult -- repair artery --yes terday monitor in ccu transfuse 2 units rbbc monitor h h -- transfuse if < 7 respiratory failure post procedure -- now resolve extubated in the ccu cad with stents cardiology consult asa/plavix as cardiology ckd-- stable htn-- continue cozaar and metoprolol stable hypothyroid-- continue home med 01/14- she complaint of headache -- no cp no sob -- she is hemodynamic stable -- h h -- stable -- after 2 units blood transfu stephanie -- continue monitor in ccu 01/15- she is stable no new event -- h h -- stable -post transfusion -- continue monitor in ccu 01/16-- she feel well -- ct of lower extremity 1. decreased size and near resolution of previo usly described hematoma in the superficial soft tissues of the medial aspect of the proximal thigh with drain in place. 2. new nonspecific enlargement and edema within the left adductor muscles. 3. slight increased size of possible pseudoaneur ysm near the common femoral artery bifurcation. -- manage as vascular surgeon -- monitor h h --7.6 bedside percutaneous ultrasound guided thrombin injection in the left common femoral artery pseudoaneurysm 89812 01/17- she feel well . no dizziness no cp no sob no abdominal pain -- h h --6.1-- transfuse 2 units blood -- continue monitor h h in icu 01/18- she is doing well -- h h -- 8--post transfusion -- continue monitor h h 01/19- she feel well -- continue bed rest as vascular surgeon -- h h --7.8 -- continue monitor h h 01/20-- she is doing well -- ambulate ok with vascular surgeon -- monitor h h 01/21 she ambulate h h -- stable [facility] continue monitor h h 01/22 low hgb, pending repeat. transfuse 1 unit p rbc if still <7. hold heparin for today since anemia and oozing at injection s ites. deposition -- home if ok with consultants electronically signed by yessica hernandez aprn on at 2054 electronically signed by sanju gill md on 0 01/31/22 at 1307 rpt #:[id number] end of report 2022-01-22 08:30:00-00:00 [facility] cardiology progress note report#:[id number] report status: signed date:01/22/22 time: 08 patient: falguni agarwal unit #: [id number] room/bed: [place] [address] : 39 age: 81 sex: f attend: kimo gill md adm dt: 01/13/22 author: alexis manriquez np * all edits or amendments must be made on the [employer]/computer document * subjective chief complaint: wants to go home. patient reports: no: chest pain, shortness of breath. nursing reports: no: complaints. comments: pt is on ra. her hb 6.2 this am, dr. dotson is aware rn reports - would like to recheck h/h before transfusion. objective general vs/i o: 24 hour i o ending at 0700: 01/21 1900 01/22 0700 intake total 240 output total 600 balance -360 intake, oral 240 output, urine 600 patient 48.988 kg weight vital signs: date time temp pulse resp b/p b/p pulse o2 o2 f low fio2 mean ox delivery rate 01/22 0704 98.4 81 18 122/68 85.7 98 room air 01/22 0443 98.8 82 16 116/62 80.2 97 room air 01/21 2341 98.4 82 16 113/64 80.3 96 room air 01/21 2129 98.2 86 16 109/64 79.1 96 room air 01/21 2004 87 33 109/59 80 100 01/21 2000 98.7 01/21 1600 98.4 01/21 1200 98.4 01/21 1140 85 36 112/53 77 100 patient weight: weight (lb): 108 weight (oz): 0.42 weight (kg): 48.988 medications: active meds + dc'd last 24 hrs sodium chloride (sodium chloride) 10 ml asdir iv sodium chloride (sodium chloride 0.9%) 500 ml on ce one iv heparin sodium (heparin 5000 units/ml) 5,000 uni t q8h subq losartan potassium (cozaar) 50 mg daily po bisacodyl (dulcolax) 10 mg daily prn prn rectal sodium chloride (sodium chloride) 10 ml asdir iv aspirin (aspirin) 81 mg daily po clopidogrel bisulfate (plavix) 75 mg daily po docusate sodium (colace) 100 mg bid po metoprolol tartrate (lopressor) 50 mg bid po polyethylene glycol (miralax) 17 gm daily po levothyroxine sodium (synthroid) 50 mcg daily 06 00 po sodium chloride (sodium chloride 0.9%) 250 ml on ce one iv atorvastatin calcium (lipitor) 40 mg bedtime po topiramate (topamax) 25 mg bid po status post: 01/16 lt groin pseudoaneurysm repair physical exam general appearance: frail, a lert, awake, oriented, no acute distress, pleasant, conversational, mental status normal, no respira tory distress head/eyes: atraumatic, clear cornea, eomi, jefferson l conjunctiva/sclera ent: moist mucosal membranes, normal nose neck: full range of motion, non-tender, no jvd, no masses or swelling cardiovascular: cv assessment: regular rate and rhythm, pedal p ulses present respiratory: decreased breath sounds, no distres s abdomen: soft, non-tender, normal bowel sounds, no distention upper extremity: ue assessment: normal temperature lower extremity: le assessment: normal capillary refill, normal temperature, no calf tenderness, no cyanosis neuro/software support representative: alert, oriented x 3, normal speech wound/incision: location: left femoral groin site w/ ecchymosis and zack chele in. left upper thigh w/ hematoma psychiatry: normal affect, normal judgment/insig ht, normal mood results findings/data: laboratory tests 01/22 0500 chemistry sodium (134 - 147 meq/l) 139 potassium (3.4 - 5.0 meq/l) 4.4 chloride (100 - 108 meq/l) 113 h carbon dioxide (21 - 33 meq/l) 19 l anion gap (0 - 20) 12 bun (7 - 18 mg/dl) 43 h creatinine (0.6 - 1.3 mg/dl) 1.3 glomerular filtr rate (70 - 80) 39.2 l glucose (70 - 110 mg/dl) 103 calcium (8.0 - 10.5 mg/dl) 8.1 ionized calcium racquel (1.09 - 1.30 mmol/l) 1.16 phosphorus (2.5 - 4.9 mg/dl) 2.9 magnesium (1.80 - 2.40 mg/dl) 2.16 laboratory tests 01/22 0500 hematology wbc (4.5 - 11.0 x10 3/ul) 14.0 h rbc (3.54 - 5.02 x10 6/ul) 1.99 l hgb (11.0 - 15.0 g/dl) 6.2 *l hct (33.0 - 45.0 %) 19.7 l mcv (81.0 - 99.0 fl) 99.0 mch (27.0 - 33.0 pg) 31.2 mchc (33.0 - 37.0 g/dl) 31.5 l rdw (11.5 - 14.5 %) 15.8 h plt count (150 - 400 x10 3/ul) 354 mpv (7.0 - 9.0 fl) 11.2 h neut % (auto) (56.0 - 77.0 %) 76.0 lymph % (auto) (14.0 - 32.0 %) 10.8 l mono % (auto) (4.8 - 9.0 %) 7.8 eos % (auto) (0.3 - 3.7 %) 3.4 baso % (auto) (0.0 - 2.0 %) 0.6 neut # (auto) (2.0 - 7.6 x10 3/ul) 10.65 h lymph # (auto) (1.0 - 3.8 x10 3/ul) 1.51 mono # (auto) (0.1 - 0.8 x10 3/ul) 1.10 h eos # (auto) (0.0 - 0.2 x10 3/ul) 0.48 h baso # (auto) (0.0 - 0.2 x10 3/ul) 0.09 abs immat gran (auto) (0.00 - 0.03 x10 3/ul) 0. 19 h add manual diff no immature gran % (0.0 - 2.0 %) 1.4 nucleated rbc % (0 - 0 %) 0.0 nucleated rbcs # (man) (0.0 - 0.1 x10 3/ul) 0. 00 laboratory tests 01/21 2050 urines urine color (yel/straw) yellow urine appearance (clear) cloudy h urine ph (5.0 - 7.0) 5.0 ur specific gravity (1.005 - 1.030) 1.014 urine protein (negative) 1+ h urine glucose (ua) (negative) negative urine ketones (negative) negative urine blood (negative) 2+ h urine nitrite (negative) negative urine bilirubin (negative) negative urine urobilinogen (0.2 - 1.0 mg/dl) 0.2 ur leukocyte esterase (negative) 3+ h urine rbc (0 - 3 rbc/hpf) 11-20 urine wbc (0 - 3 wbc/hpf) >50 h ur squamous epith cells (none seen /hpf) 6-10 h urine bacteria (none seen /hpf) 3+ h urine mucus (none seen /lpf) trace laboratory tests 01/22 0500 chemistry magnesium (1.80 - 2.40 mg/dl) 2.16 results: labs reviewed, vital signs reviewed, vi jayne signs stable, rhythm personally rev'd, current med profile rev'd telemetry interpretation: nsr diagnosis, assessment plan consultants: cardiology, cardiovascular surgery, colorectal surgery plan discussed with: patient, family, nurse free text dxa p notes free text dxa p notes: 81 y/o f w/ pmhx of htn, cad s/p rca stents in j el[place] 2021, oa, ckd stage iii, lung cancer (in remission) who presented to [facility] for elective [facility] cad s/p 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 continue plavix, asa, bb, and statin hh dropped today, 6.2 anemia secondary to groin hematoma stable s/p transfusion continue to monitor hb 7.4 -> 6.2 today await for repeat h/h, if cont <7 then will trans fuse. htn on losartan, metoprolol ef 55-60% w/ grade 1 d continue to monitor bp stable oa stable ckd stage iii stable electronically signed by alexis manriquez np on at 1103 electronically signed by lane corbin md on at 1228 [facility] #:[id number] end of report 2022-01-21 11:32:00-00:00 [facility] hospitalist progress note report#:[id number] report status: signed date:01/21/22 time: 1132 patient: falguni agarwal unit #: [id number] room/bed: [address] : 39 age: 81 sex: f attend: kimo gill md adm dt: 01/13/22 author: rosa oscar md * all edits or amendments must be made on the [employer]/computer document * subjective chief complaint: she feel well . no complaint hpi: 81 years old female with pmh cad with stents , c kd3 , hx of lung cancer had elective cath yesterday . she developed hematoma on the left femoral site and hypotension . she was given blood transfusion . vascular surgeon was consulted . she had repair sugery yesterday . she was admitt ed to the ccu . now she feel well . no cp no sob no dizziness no nausea no vo miting review of systems constitutional: denies: fatigue, fever, generalized weakness, le thargy. respiratory: denies: sob, wheezing. cardiovascular: denies: chest pain, shah (dyspnea on exertion), e pina, orthopnea. gi: denies: abdominal pain, anorexia, constipation, diarrhea. neuro: denies: dizziness. objective general vs/i o: vital signs: date time temp pulse resp b/p b/p pulse o2 o2 f low fio2 mean ox delivery rate 01/21 0800 37.0 01/21 0600 74 18 127/61 88 100 01/21 0500 76 26 125/59 85 100 01/21 0400 36.9 nasal 2 cannula 01/21 0300 75 48 132/61 88 100 01/21 0220 74 32 132/60 87 99 01/21 0000 36.8 nasal 2 cannula 01/20 2300 72 35 137/62 89 100 01/20 2200 72 26 105/52 75 100 01/20 2101 89 38 150/62 89 100 01/20 2000 36.7 nasal 2 cannula 01/20 2000 nasal 2 cannula 01/20 2000 92 27 130/60 86 100 01/20 1701 92 38 111/57 82 98 01/20 1600 37.0 01/20 1600 82 26 144/67 97 100 01/20 1500 81 29 155/72 103 100 01/20 1400 84 28 145/67 97 100 01/20 1300 81 29 133/63 91 100 01/20 1200 74 26 150/70 101 100 24 hour i o ending at 0700: 01/21 0700 01/20 1900 intake total output total balance number 1 bowel movements number voids 2 patient 49 kg weight weight bed scale measurement method patient weight: weight (lb): 108 weight (oz): 0.42 weight (kg): 49.000 medications: active meds + dc'd last 24 hrs calcium gluconate/sodium chloride (calcium gluco carmen 1 gm/ns 50 ml) 50 ml once one iv (dc) magnesium sulfate (magnesium sulfate 2gm/swfi 50 ml) 50 ml once one iv ( dc) potassium phos/sodium phos (neutra-phos) 2 udpkt once one po (dc) heparin sodium (heparin 5000 units/ml) 5,000 uni t q8h subq losartan potassium (cozaar) 50 mg daily po bisacodyl (dulcolax) 10 mg daily prn prn rectal sodium chloride (sodium chloride) 10 ml asdir iv aspirin (aspirin) 81 mg daily po clopidogrel bisulfate (plavix) 75 mg daily po docusate sodium (colace) 100 mg bid po metoprolol tartrate (lopressor) 50 mg bid po polyethylene glycol (miralax) 17 gm daily po levothyroxine sodium (synthroid) 50 mcg daily 0 600 po sodium chloride (sodium chloride 0.9%) 250 ml on ce one iv atorvastatin calcium (lipitor) 40 mg bedtime po topiramate (topamax) 25 mg bid po physical exam general appearance: alert, awake, oriented head/eyes: atraumatic, normal conjunctiva/sclera , normal eyelids/periorb., normocephalic neck: full range of motion, normal thyroid, no j vd cardiovascular: normal heart sounds, regular rat e rhythm respiratory: aerating well, clear to auscultatio n abdomen: non-tender, normal bowel sounds, soft, no distention extremities: moves all, no calf tenderness, no e pina (left groin hematoma ) neuro/software support representative: alert, oriented x 3, cnii-xii intact, normal speech, no motor deficits, no sensory deficits skin: dry, intact results findings/data: laboratory tests 01/21 0400 chemistry sodium (134 - 147 meq/l) 138 potassium (3.4 - 5.0 meq/l) 4.6 chloride (100 - 108 meq/l) 114 h carbon dioxide (21 - 33 meq/l) 18 l anion gap (0 - 20) 11 bun (7 - 18 mg/dl) 28 h creatinine (0.6 - 1.3 mg/dl) 1.1 glomerular filtr rate (70 - 80) 47.6 l glucose (70 - 110 mg/dl) 106 calcium (8.0 - 10.5 mg/dl) 7.5 l ionized calcium racquel (1.09 - 1.30 mmol/l) 1.06 l phosphorus (2.5 - 4.9 mg/dl) 3.1 magnesium (1.80 - 2.40 mg/dl) 1.73 l laboratory tests 01/21 01/21 0900 0400 hematology wbc (4.5 - 11.0 x10 3/ul) 14.5 h rbc (3.54 - 5.02 x10 6/ul) 2.25 l hgb (11.0 - 15.0 g/dl) 7.4 l 7.0 l hct (33.0 - 45.0 %) 22.7 l 21.7 l mcv (81.0 - 99.0 fl) 96.4 mch (27.0 - 33.0 pg) 31.1 mchc (33.0 - 37.0 g/dl) 32.3 l rdw (11.5 - 14.5 %) 15.5 h plt count (150 - 400 x10 3/ul) 352 mpv (7.0 - 9.0 fl) 11.0 h neut % (auto) (56.0 - 77.0 %) 75.7 lymph % (auto) (14.0 - 32.0 %) 13.1 l mono % (auto) (4.8 - 9.0 %) 8.2 eos % (auto) (0.3 - 3.7 %) 1.5 baso % (auto) (0.0 - 2.0 %) 0.7 neut # (auto) (2.0 - 7.6 x10 3/ul) 10.95 h lymph # (auto) (1.0 - 3.8 x10 3/ul) 1.89 mono # (auto) (0.1 - 0.8 x10 3/ul) 1.19 h eos # (auto) (0.0 - 0.2 x10 3/ul) 0.21 h baso # (auto) (0.0 - 0.2 x10 3/ul) 0.10 abs immat gran (auto) (0.00 - 0.03 x10 3/ul) 0 .11 h add manual diff no immature gran % (0.0 - 2.0 %) 0.8 nucleated rbc % (0 - 0 %) 0.0 nucleated rbcs # (man) (0.0 - 0.1 x10 3/ul) 0.0 0 treatment prophylaxis treatment prophylaxis anti-hypertensives: losartan potassium diagnosis, assessment plan consultants: cardiology, cardiovascular surgery, colorectal surgery free text dxa p notes free text dxa p notes: hemorrhage from left femoral artery left common femoral artery pseudoaneurysm anemia due to acute blood loss acute respiratory failure --post procedure cad ckd3 htn hypothyroid hemorrhage from left femoral artery anemia due to acute blood loss vascular surgeon consult -- repair artery --yes ter monitor in ccu transfuse 2 units rbbc monitor h h -- transfuse if < 7 respiratory failure post procedure -- now resolve extubated in the ccu cad with stents cardiology consult asa/plavix as cardiology ckd-- stable htn-- continue cozaar and metoprolol stable hypothyroid-- continue home med 01/14- she complaint of headache -- no cp no sob -- she is hemodynamic stable -- h h -- stable -- after 2 units blood transfu stephanie -- continue monitor in ccu 01/15- she is stable no new event -- h h -- stable -post transfusion -- continue monitor in ccu 01/16-- she feel well -- ct of lower extremity 1. decreased size and near resolution of previo usly described hematoma in the superficial soft tissues of the medial aspect of the proximal thigh with drain in place. 2. new nonspecific enlargement and edema within the left adductor muscles. 3. slight increased size of possible pseudoaneur ysm near the common femoral artery bifurcation. -- manage as vascular surgeon -- monitor h h --7.6 bedside percutaneous ultrasound guided thrombin injection in the left common femoral artery pseudoaneurysm 01416 01/17- she feel well . no dizziness no cp no sob no abdominal pain -- h h --6.1-- transfuse 2 units blood -- continue monitor h h in icu 01/18- she is doing well -- h h -- 8--post transfusion -- continue monitor h h 01/19- she feel well -- continue bed rest as vascular surgeon -- h h --7.8 -- continue monitor h h 01/20-- she is doing well -- ambulate ok with vascular surgeon -- monitor h h 01/21 she ambulate h h -- stable ok [facility] continue monitor h h deposition -- home if ok with consultants quality: gen med crit care current medications current medication review: current medications sig/brandi start time last medication dose route stop time status admin calcium gluconate/ 50 ml once one 01/13 1115 dc 01/13 sodium chloride iv 01/13 1124 1204 aspirin 81 mg daily 01/13 900 ac 01/13 po 02/12 0859 0829 clopidogrel bisulfate 75 mg daily 01/13 900 ac 01/13 po 02/12 0859 0828 docusate sodium 100 mg bid 01/13 900 ac 01/13 po 02/12 0859 0829 losartan potassium 25 mg daily 01/13 900 ac po 02/12 0859 0829 metoprolol tartrate 50 mg bid 01/13 900 ac po 02/11 1544 0829 polyethylene glycol 17 gm daily 01/13 900 ac 0 01/13 po 02/12 0859 0828 levothyroxine sodium 50 mcg daily 00 01/13 06 00 ac 01/13 po 02/12 0559 0828 calcium gluconate/ 100 ml once one 01/13 0530 d c 01/13 sodium chloride iv 01/13 0549 0622 magnesium sulfate 100 ml once one 01/13 0530 dc 01/13 iv 01/13 0929 0622 sodium bicarbonate 50 meq once one 01/13 0530 d c 01/13 iv 01/13 0531 0621 albumin human 250 ml q1h 01/12 2230 dc 01/13 iv 01/12 2359 0058 sodium chloride 250 ml once one 01/12 2215 ac 0 01/13 iv 01/23 0814 0043 fentanyl citrate 50 mcg once one 01/12 2145 dc 01/12 iv 01/12 214 2151 fentanyl citrate 50 mcg once one 01/12 2115 dc iv 01/13 2116 fentanyl citrate 0 .stk-med one 01/12 2107 dc 0 01/12 iv 2112 atorvastatin calcium 40 mg bedtime 01/12 2100 a c po 02/11 2059 mupirocin 1 applic bid 01/12 2100 ac 01/13 nasal 01/17 0901 08 topiramate 25 mg bid 01/12 2100 ac 01/13 po 02/11 205 08 glycopyrrolate 0 .stk-med one 01/12 1931 dc .route neostigmine 0 .stk-med one 01/12 1931 dc methylsulfate .route cefazolin sodium 0 .stk-med one 01/12 184 dc .route heparin sodium 0 .stk-med one 01/12 1845 dc .route fentanyl citrate 0 .stk-med one 01/12 1820 dc .route etomidate 0 .stk-med one 01/12 1814 dc iv propofol 20 ml .stk-med one 01/12 1814 dc iv rocuronium bromide 0 .stk-med one 01/12 1814 dc iv succinylcholine 0 .stk-med one 01/12 1814 dc chloride iv iopamidol 100 ml .stk-med one 01/12 1759 dc iv 01/12 1800 1759 heparin sodium 0 .stk-med one 01/12 1747 dc .route thrombin 0 .stk-med one 01/12 1747 dc topical tramadol hcl 50 mg q6h prn prn 01/12 1430 dc po 01/17 1429 atropine sulfate 0.5 mg asdir prn 01/12 1330 dc 01/12 iv 01/13 1324 1653 sodium chloride 1,000 ml .[id number] 01/12 1330 dc iv 01/13 0249 sodium chloride 500 ml asdir prn 01/12 1330 dc iv 01/13 1324 home medications: clopidogrel (plavix) 75 mg po daily topiramate (topamax) 25 mg po bid omeprazole er 20 mg po daily metoprolol tartrate (lopressor) 50 mg po bid losartan (cozaar) 25 mg po daily [prolia] 60 mg subq every 6 mos tramadol (ultram) 50 mg po q6h prn prn acute amadou n aspirin 81 mg po daily levothyroxine (synthroid) 50 mcg po daily atorvastatin (lipitor) 40 mg po bedtime i attest that the foregoing medication list in [facility] medical record is true, accurate, and complete to the best of my knowled ge. electronically signed by rosa oscar md on 2 at 1732 rpt #:[id number] end of report 2022-01-21 10:49:00-00:00 [facility] ([facility]) cardiology progress note report#:[id number] report status: signed date:01/21/22 time: 1049 patient: falguni agarwal unit #: [id number] room/bed: [place] [address] : 39 age: 81 sex: f attend: kimo gill md adm dt: 01/13/22 author: cj waller np * all edits or amendments must be made on the [employer]/computer document * subjective chief complaint: doing ok objective general vs/i o: laboratory tests 01/21/22 0900: [embedded image not available] 01/21/22 0400: [embedded image not available] 01/20/22 0400: [embedded image not available] current medications sig/brandi start time last medication dose route stop time status admin calcium gluconate/ 50 ml once one 01/21 630 dc 01/21 sodium chloride iv 01/21 0639 0637 magnesium sulfate 50 ml once one 01/21 0630 dc 01/21 iv 01/21 0829 0637 potassium phos/ 2 udpkt once one 01/20 1400 dc 01/20 sodium phos po 01/20 1401 1409 heparin sodium 5,000 unit q8h 01/19 1100 ac subq 02/18 1059 0354 losartan potassium 50 mg daily 01/19 09 ac po 02/12 0859 0924 bisacodyl 10 mg daily prn prn 01/18 1045 ac rectal 02/17 1044 1608 sodium chloride 10 ml asdir 01/13 2300 ac iv 02/12 2259 aspirin 81 mg daily 01/13 900 ac 01/21 po 02/12 0859 0923 clopidogrel bisulfate 75 mg daily 01/13 900 ac 01/21 po 02/12 0859 0924 docusate sodium 100 mg bid 01/13 09 ac 01/21 po 02/12 0859 0925 metoprolol tartrate 50 mg bid 01/13 900 ac po 02/11 1544 0925 polyethylene glycol 17 gm daily 01/13 900 ac 0 01/21 po 02/12 0859 0925 levothyroxine sodium 50 mcg daily 0600 01/13 06 00 ac 01/21 po 02/12 0559 0636 sodium chloride 250 ml once one 01/12 2215 ac 0 01/13 iv 01/23 0814 0043 atorvastatin calcium 40 mg bedtime 01/12 2100 a c 01/20 po 02/11 topiramate 25 mg bid 01/12 2100 ac 01/21 po 02/11 24 hour i o ending at 0700: 01/21 0700 01/20 1900 intake total output total balance number 1 bowel movements number voids 2 patient 49 kg weight weight bed scale measurement method vital signs: date time temp pulse resp b/p b/p pulse o2 o2 f low fio2 mean ox delivery rate 01/21 08 37.0 01/21 0600 74 18 127/61 88 100 01/21 0500 76 26 125/59 85 100 01/21 0400 36.9 nasal 2 cannula 01/21 0300 75 48 132/61 88 100 01/21 0220 74 32 132/60 87 99 01/21 0000 36.8 nasal 2 cannula 01/20 2300 72 35 137/62 89 100 01/20 2200 72 26 105/52 75 100 01/20 2101 89 38 150/62 89 100 01/20 2000 36.7 nasal 2 cannula 01/21 2000 nasal 2 cannula 01/20 2000 92 27 130/60 86 100 01/20 1701 92 38 111/57 82 98 01/20 1600 37.0 01/20 1600 82 26 144/67 97 100 0818 1500 81 29 155/72 103 100 01/20 1400 84 28 145/67 97 100 01/20 1300 81 29 133/63 91 100 01/20 1200 74 26 150/70 101 100 01/20 1100 68 43 145/67 97 100 patient weight: weight (lb): 108 weight (oz): 0.42 weight (kg): 49.000 status post: 01/16 lt groin pseudoaneurysm repair physical exam general appearance: alert, awake, oriented, no a cute distress head/eyes: atraumatic, clear cornea, eomi, jefferson l conjunctiva/sclera ent: moist mucosal membranes, normal nose neck: full range of motion, non-tender, no jvd, no masses or swelling cardiovascular: cv assessment: regular rate and rhythm, pedal p ulses present respiratory: decreased breath sounds, no distres s abdomen: soft, non-tender, normal bowel sounds, no distention genitourinary: avilez, urine upper extremity: ue assessment: normal temperature lower extremity: le assessment: normal capillary refill, normal temperature, no calf tenderness, no cyanosis neuro/software support representative: alert, oriented x 3, normal speech wound/incision: location: left femoral groin site w/ ecchymosis and zack chele in. left upper thigh w/ hematoma psychiatry: normal affect, normal judgment/insig ht, normal mood diagnosis, assessment plan consultants: cardiology, cardiovascular surgery, colorectal surgery free text dxa p notes free text dxa p notes: 81 y/o f w/ pmhx of htn, cad s/p rca stents in j [place] 2021, oa, ckd stage iii, lung cancer (in remission) who presented to [facility] for elective [facility] cad s/p 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 continue plavix, asa, bb, and statin hh stable oob to chair today tx to cvi pending anemia secondary to groin hematoma stable s/p transfusion continue to monitor htn on losartan, metoprolol ef 55-60% w/ grade 1 d continue to monitor bp stable oa stable ckd stage iii stable electronically signed by cj waller driver's license reviewing officer on 0 01/21/22 at 1358 electronically signed by lane corbin md on at 1228 rpt #:[id number] end of report 2022-01-20 10:50:00-00:00 [facility] hospitalist progress note report#:[id number] report status: signed date:01/20/22 time: 1050 patient: falguni agarwal unit #: [id number] room/bed: [place] [address] : 39 age: 81 sex: f attend: kimo gill md adm dt: 01/13/22 author: rosa oscar md * all edits or amendments must be made on the [employer]/computer document * subjective chief complaint: she feel well . no complaint hpi: 81 years old female with pmh cad with stents , c kd3 , hx of lung cancer had elective cath yesterday . she developed hematoma on the left femoral site and hypotension . she was given blood transfusion . vascular surgeon was consulted . she had repair sugery yesterday . she was admitt ed to the ccu . now she feel well . no cp no sob no dizziness no nausea no vo miting review of systems constitutional: denies: fatigue, fever, lethargy. respiratory: denies: productive cough (sputum), sob, wheezing . cardiovascular: denies: chest pain, shah (dyspnea on exertion), e pina, orthopnea. gi: denies: abdominal pain, nausea, vomiting. gu: denies: dysuria, flank pain, frequency. neuro: denies: confusion, dizziness. objective general vs/i o: vital signs: date time temp pulse resp b/p b/p pulse o2 o2 f low fio2 mean ox delivery rate 01/20 0800 36.7 01/20 0600 74 156/71 102 98 01/20 0500 72 163/73 105 97 01/20 0400 36.6 01/20 0400 76 26 143/65 93 100 01/20 0300 72 161/74 107 100 01/20 0200 71 21 139/65 94 98 01/20 0100 76 158/86 117 99 01/20 0005 37.0 75 18 156/70 98 99 room air 01/20 0001 75 156/70 100 99 01/19 2300 74 26 138/65 93 100 01/19 2200 71 25 133/62 89 100 01/19 2100 81 138/63 90 100 01/19 2015 36.7 01/19 2000 84 28 159/70 101 96 01/19 1900 84 27 135/63 91 99 01/19 1800 90 43 161/72 103 98 01/19 1701 79 47 153/71 102 96 01/19 1600 36.6 01/19 1600 72 29 112/60 80 100 / 1500 74 23 110/57 80 99 / 1401 116/58 83 01/19 1400 69 31 100 01/19 1300 149/69 99 01/19 1259 74 29 98 01/19 1200 36.7 01/19 1200 68 24 128/61 88 100 01/19 1100 69 24 122/58 84 100 24 hour i o ending at 0700: 01/20 0700 01/19 1900 intake total 400 output total 810 10 balance -410 -10 intake, oral 400 number voids 4 output, 10 10 drainage output, urine 800 patient weight: weight (lb): 110 weight (oz): 14.28 weight (kg): 50.300 medications: active meds + dc'd last 24 hrs heparin sodium (heparin 5000 units/ml) 5,000 uni t q8h subq losartan potassium (cozaar) 50 mg daily po bisacodyl (dulcolax) 10 mg daily prn prn rectal sodium chloride (sodium chloride) 10 ml asdir iv aspirin (aspirin) 81 mg daily po clopidogrel bisulfate (plavix) 75 mg daily po docusate sodium (colace) 100 mg bid po metoprolol tartrate (lopressor) 50 mg bid po polyethylene glycol (miralax) 17 gm daily po levothyroxine sodium (synthroid) 50 mcg daily 06 00 po sodium chloride (sodium chloride 0.9%) 250 ml on ce one iv atorvastatin calcium (lipitor) 40 mg bedtime po topiramate (topamax) 25 mg bid po physical exam general appearance: alert, awake, oriented, no a cute distress head/eyes: atraumatic, normal conjunctiva/sclera , normal eyelids/periorb., normocephalic neck: full range of motion, normal thyroid, no j vd cardiovascular: normal heart sounds, regular rat e rhythm respiratory: aerating well, clear to auscultatio n abdomen: non-tender, normal bowel sounds, soft, no distention extremities: moves all, no calf tenderness, no e pina (left groin hematoma ) neuro/software support representative: alert, oriented x 3, cnii-xii intact, normal speech, no motor deficits, no sensory deficits skin: dry, intact results findings/data: laboratory tests 01/20 0400 chemistry sodium (134 - 147 meq/l) 140 potassium (3.4 - 5.0 meq/l) 4.4 chloride (100 - 108 meq/l) 114 h carbon dioxide (21 - 33 meq/l) 21 anion gap (0 - 20) 10 bun (7 - 18 mg/dl) 28 h creatinine (0.6 - 1.3 mg/dl) 1.1 glomerular filtr rate (70 - 80) 47.6 l glucose (70 - 110 mg/dl) 95 calcium (8.0 - 10.5 mg/dl) 7.6 l ionized calcium racquel (1.09 - 1.30 mmol/l) 1.13 phosphorus (2.5 - 4.9 mg/dl) 1.9 l magnesium (1.80 - 2.40 mg/dl) 1.94 laboratory tests 01/20 0400 hematology wbc (4.5 - 11.0 x10 3/ul) 12.4 h rbc (3.54 - 5.02 x10 6/ul) 2.65 l hgb (11.0 - 15.0 g/dl) 8.2 l hct (33.0 - 45.0 %) 25.5 l mcv (81.0 - 99.0 fl) 96.2 mch (27.0 - 33.0 pg) 30.9 mchc (33.0 - 37.0 g/dl) 32.2 l rdw (11.5 - 14.5 %) 15.4 h plt count (150 - 400 x10 3/ul) 357 mpv (7.0 - 9.0 fl) 11.4 h neut % (auto) (56.0 - 77.0 %) 68.4 lymph % (auto) (14.0 - 32.0 %) 16.2 mono % (auto) (4.8 - 9.0 %) 7.0 eos % (auto) (0.3 - 3.7 %) 6.8 h baso % (auto) (0.0 - 2.0 %) 0.7 neut # (auto) (2.0 - 7.6 x10 3/ul) 8.51 h lymph # (auto) (1.0 - 3.8 x10 3/ul) 2.01 mono # (auto) (0.1 - 0.8 x10 3/ul) 0.87 h eos # (auto) (0.0 - 0.2 x10 3/ul) 0.84 h baso # (auto) (0.0 - 0.2 x10 3/ul) 0.09 abs immat gran (auto) (0.00 - 0.03 x10 3/ul) 0. 11 h add manual diff no immature gran % (0.0 - 2.0 %) 0.9 nucleated rbc % (0 - 0 %) 0.0 nucleated rbcs # (man) (0.0 - 0.1 x10 3/ul) 0.0 0 treatment prophylaxis treatment prophylaxis anti-hypertensives: losartan potassium diagnosis, assessment plan consultants: cardiology, cardiovascular surgery, colorectal surgery free text dxa p notes free text dxa p notes: hemorrhage from left femoral artery left common femoral artery pseudoaneurysm anemia due to acute blood loss acute respiratory failure --post procedure cad ckd3 htn hypothyroid hemorrhage from left femoral artery anemia due to acute blood loss vascular surgeon consult -- repair artery --yes terday monitor in ccu transfuse 2 units rbbc monitor h h -- transfuse if < 7 respiratory failure post procedure -- now resolve extubated in the ccu cad with stents cardiology consult asa/plavix as cardiology ckd-- stable htn-- continue cozaar and metoprolol stable hypothyroid-- continue home med 01/14- she complaint of headache -- no cp no sob -- she is hemodynamic stable -- h h -- stable -- after 2 units blood transfu stephanie -- continue monitor in ccu 01/15- she is stable no new event -- h h -- stable -post transfusion -- continue monitor in ccu 01/16-- she feel well -- ct of lower extremity 1. decreased size and near resolution of previo usly described hematoma in the superficial soft tissues of the medial aspect of the proximal thigh with drain in place. 2. new nonspecific enlargement and edema within the left adductor muscles. 3. slight increased size of possible pseudoaneur ysm near the common femoral artery bifurcation. -- manage as vascular surgeon -- monitor h h --7.6 bedside percutaneous ultrasound guided thrombin injection in the left common femoral artery pseudoaneurysm [id number] 01/17- she feel well . no dizziness no cp no sob no abdominal pain -- h h --6.1-- transfuse 2 units blood -- continue monitor h h in icu 01/18- she is doing well -- h h -- 8--post transfusion -- continue monitor h h 01/19- she feel well -- continue bed rest as vascular surgeon -- h h --7.8 -- continue monitor h h 01/20-- she is doing well -- ambulate ok with vascular surgeon -- monitor h h quality: gen med crit care current medications current medication review: current medications sig/brandi start time last medication dose route stop time status admin calcium gluconate/ 50 ml once one 01/13 1115 dc 01/13 sodium chloride iv 01/13 1124 1204 aspirin 81 mg daily 01/13 900 ac 01/13 po 02/12 0859 08 clopidogrel bisulfate 75 mg daily 01/13 900 ac 01/13 po 02/12 0859 0828 docusate sodium 100 mg bid 01/13 900 ac 01/13 po 02/12 0859 0829 losartan potassium 25 mg daily 01/13 900 ac 0 01/13 po 02/12 0859 0829 metoprolol tartrate 50 mg bid 01/13 900 ac po 02/11 1544 0829 polyethylene glycol 17 gm daily 01/13 900 ac 0 01/13 po 02/12 0859 0828 levothyroxine sodium 50 mcg daily 0600 01/13 06 00 ac 01/13 po 02/12 0559 0828 calcium gluconate/ 100 ml once one 01/13 0530 d c 01/13 sodium chloride iv 01/13 0549 0622 magnesium sulfate 100 ml once one 01/13 0530 dc 01/13 iv 01/13 0929 0622 sodium bicarbonate 50 meq once one 01/13 0530 d c 01/13 iv 01/13 0531 0621 albumin human 250 ml q1h 01/12 2230 dc 01/13 iv 01/12 2359 0058 sodium chloride 250 ml once one 01/12 2215 ac 0 01/13 iv 01/23 0814 0043 fentanyl citrate 50 mcg once one 01/12 214 dc 01/12 iv 01/12 214 2151 fentanyl citrate 50 mcg once one 01/12 2115 dc iv 01/13 2116 fentanyl citrate 0 .stk-med one 01/12 2107 dc 0 01/12 iv 2112 atorvastatin calcium 40 mg bedtime 01/12 2100 a c po 02/11 2059 mupirocin 1 applic bid 01/12 2100 ac 01/13 nasal 01/17 0901 08 topiramate 25 mg bid 01/12 2100 ac 01/13 po 02/11 2059 08 glycopyrrolate 0 .stk-med one 01/12 1931 dc .route neostigmine 0 .stk-med one 01/12 1931 dc methylsulfate .route cefazolin sodium 0 .stk-med one 01/12 184 dc .route heparin sodium 0 .stk-med one 01/12 1845 dc .route fentanyl citrate 0 .stk-med one 01/12 1820 dc .route etomidate 0 .stk-med one 01/12 1814 dc iv propofol 20 ml .stk-med one 01/12 1814 dc iv rocuronium bromide 0 .stk-med one 01/12 1814 d c iv succinylcholine 0 .stk-med one 01/12 1814 dc chloride iv iopamidol 100 ml .stk-med one 01/12 1759 dc iv 01/12 1800 1759 heparin sodium 0 .stk-med one 01/12 1747 dc .route thrombin 0 .stk-med one 01/12 1747 dc topical tramadol hcl 50 mg q6h prn prn 01/12 1430 dc po 01/17 1429 atropine sulfate 0.5 mg asdir prn 01/12 1330 dc 01/12 iv 01/13 1324 1653 sodium chloride 1,000 ml .[id number] 01/12 1330 dc iv 01/13 0249 sodium chloride 500 ml asdir prn 01/12 1330 dc iv 01/13 1324 home medications: clopidogrel (plavix) 75 mg po daily topiramate (topamax) 25 mg po bid omeprazole er 20 mg po daily metoprolol tartrate (lopressor) 50 mg po bid losartan (cozaar) 25 mg po daily [prolia] 60 mg subq every 6 mos tramadol (ultram) 50 mg po q6h prn prn acute amadou n aspirin 81 mg po daily levothyroxine (synthroid) 50 mcg po daily atorvastatin (lipitor) 40 mg po bedtime i attest that the foregoing medication list in [facility] medical record is true, accurate, and complete to the best of my knowled ge. electronically signed by rosa oscar md on 2 at 1616 rpt #:[id number] end of report 2022-01-20 08:13:00-00:00 [facility] cardiology progress note report#:[id number] report status: signed date:01/20/22 time: 812 patient: falguni agarwal unit #: [id number] room/bed: [place] [address] : 39 age: 81 sex: f attend: kimo gill md adm dt: 01/13/22 author: cj waller np * all edits or amendments must be made on the [employer]/computer document * subjective chief complaint: no change objective general vs/i o: laboratory tests 01/20/22 0400: [embedded image not available] 01/19/22 0515: [embedded image not available] current medications sig/brandi start time last medication dose route stop time status admin heparin sodium 5,000 unit q8h 01/19 1100 ac subq 02/18 1059 0352 losartan potassium 50 mg daily 01/19 0900 ac 0 01/20 po 02/12 0859 0803 bisacodyl 10 mg daily prn prn 01/18 1045 ac rectal 02/17 1044 1608 sodium chloride 10 ml asdir 01/13 2300 ac iv 02/12 2259 aspirin 81 mg daily 01/13 0900 ac 01/20 po 02/12 0859 0803 clopidogrel bisulfate 75 mg daily 01/13 09 ac 01/20 po 02/12 0859 0812 docusate sodium 100 mg bid 01/13 09 ac 01/19 po 02/12 0859 0854 metoprolol tartrate 50 mg bid 01/13 0900 ac po 02/11 1544 0803 polyethylene glycol 17 gm daily 01/13 0900 ac 0 01/20 po 02/12 0859 0812 levothyroxine sodium 50 mcg daily 0600 01/13 06 00 ac 01/20 po 02/12 0559 0607 sodium chloride 250 ml once one 01/12 2215 ac 0 01/13 iv 01/23 0814 0043 atorvastatin calcium 40 mg bedtime 01/12 2100 a c 01/19 po 02/11 topiramate 25 mg bid 01/12 2100 ac 01/20 po 02/11 205 0803 24 hour i o ending at 0700: 01/20 0700 01/19 1900 intake total 400 output total 810 10 balance -410 -10 intake, oral 400 number voids 4 output, 10 10 drainage output, urine 800 vital signs: date time temp pulse resp b/p b/p pulse o2 o2 f low fio2 mean ox delivery rate 01/20 0800 36.7 08 0600 74 156/71 102 98 08/18 0500 72 163/73 105 97 08/ 0400 36.6 08/18 0400 76 26 143/65 93 100 /18 0300 72 161/74 107 100 / 0200 71 21 139/65 94 98 08/18 0100 76 158/86 117 99 08/ 0005 37.0 75 18 156/70 98 99 room air 08 0001 75 156/70 100 99 08/ 2300 74 26 138/65 93 100 08/ 2200 71 25 133/62 89 100 / 2100 81 138/63 90 100 01/19 2015 36.7 08/ 2000 84 28 159/70 101 96 08/ 1900 84 27 135/63 91 99 / 1800 90 43 161/72 103 98 / 1701 79 47 153/71 102 96 / 1600 36.6 08/ 1600 72 29 112/60 80 100 08/17 1500 74 23 110/57 80 99 08/17 1401 116/58 83 08/17 1400 69 31 100 08/ 1300 149/69 99 08/17 1259 74 29 98 08/ 1200 36.7 08 1200 68 24 128/61 88 100 patient weight: weight (lb): 110 weight (oz): 14.28 weight (kg): 50.300 status post: 01/16 lt groin pseudoaneurysm repair physical exam general appearance: alert, awake, oriented, no a cute distress head/eyes: atraumatic, clear cornea, eomi, jefferson l conjunctiva/sclera ent: moist mucosal membranes, normal nose neck: full range of motion, non-tender, no jvd, no masses or swelling cardiovascular: cv assessment: regular rate and rhythm, pedal p ulses present respiratory: decreased breath sounds, no distres s abdomen: soft, non-tender, normal bowel sounds, no distention genitourinary: avilez, urine upper extremity: ue assessment: normal temperature lower extremity: le assessment: normal capillary refill, normal temperature, no calf tenderness, no cyanosis neuro/software support representative: alert, oriented x 3, normal speech wound/incision: location: left femoral groin site w/ ecchymosis and zack chele in. left upper thigh w/ hematoma psychiatry: normal affect, normal judgment/insig ht, normal mood diagnosis, assessment plan consultants: cardiology, cardiovascular surgery, colorectal surgery free text dxa p notes free text dxa p notes: 81 y/o f w/ pmhx of htn, cad s/p rca stents in j eleno 2021, oa, ckd stage iii, lung cancer (in remission) who presented to [facility] for elective [facility] cad s/p 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 continue plavix, asa, bb, and statin hh stable bedrest per vascular surgery anemia secondary to groin hematoma stable s/p transfusion continue to monitor htn on losartan, metoprolol ef 55-60% w/ grade 1 d continue to monitor bp stable oa stable ckd stage iii stable encourage ambulation once cleared to get oob electronically signed by cj waller np on 0 01/20/22 at 1104 electronically signed by lane corbin md on at 1228 rpt #:[id number] end of report 2022-01-19 10:45:00-00:00 HC[facility]L [facility] Hospitalist Progress Note REPORT#:[id number] REPORT STATUS: Signed DATE:01/19/22 TIME: 1045 PATIENT: FALGUNI AGARWAL UNIT #: [id number] ROOM/BED: [place] [address] : 39 AGE: 81 SEX: F ATTEND: Kimo Gill MD ADM AUTHOR: Rosa Oscar MD * ALL edits or amendments must be made on the [employer]/computer document * Subjective Chief complaint: she feel well . no dizziness no cp no sob HPI: 81 years old female with PMH CAD with stents , C KD3 , Hx of lung cancer had elective cath yesterday . she developed hematoma on the left femoral site and hypotension . she was given blood transfusion . vascular surgeon was consulted . she had repair sugery yesterday . she was admitt ed to the CCU . now she feel well . no cp no sob no dizziness no nausea no vo miting Review of Systems Constitutional: Denies: fatigue, fever, generalized weakness, le thargy. Respiratory: Denies: productive cough (sputum), SOB, wheezing . Cardiovascular: Denies: chest pain, SHAH (dyspnea on exertion), e pina, orthopnea. GI: Denies: abdominal pain, nausea, vomiting. : Denies: dysuria, flank pain, frequency. Neuro: Denies: confusion, dizziness, headache. Objective General VS/I O: Vital Signs: Date Time Temp Pulse Resp B/P B/P Pulse O2 O2 Flow FiO2 Mean Ox Delivery Rate 01/19 1000 73 28 131/60 87 100 08/ 0900 85 36 149/65 94 98 /17 0800 36.3 08/ 0800 72 25 142/63 90 100 /17 0700 71 21 131/61 88 100 /17 0500 74 24 136/62 89 100 /17 0400 36.7 69 21 152/70 100 100 /17 0300 74 19 100 08/17 0200 69 17 147/65 93 100 08/17 0100 76 23 168/80 113 100 /17 0000 36.9 70 20 100 08/16 2302 77 21 156/71 102 100 08/16 2230 83 18 135/65 93 100 08/16 2200 80 24 131/61 88 100 08/16 2130 84 29 126/62 89 99 08/16 2100 83 31 136/65 93 100 08/16 2030 82 27 118/55 79 100 /16 2000 Nasal 2 cannula 01/19 2000 37.1 83 23 122/58 83 100 08/16 1801 92 38 147/66 95 100 08/16 1700 84 37 99 08/16 1630 91 36 142/65 93 100 08/16 1600 37.0 08/16 1600 81 35 126/59 85 99 08/16 1530 86 24 110/56 80 100 08/16 1500 84 37 111/55 79 100 08/16 1430 83 38 98/47 68 100 08/16 1401 88 37 112/67 83 99 08/16 1400 88 33 99 08/16 1300 72 35 151/67 96 100 08/16 1200 36.8 08/16 1200 76 42 139/64 92 100 08/16 1100 74 45 133/64 92 100 24 hour I O ending at 0700: 01/19 0700 01/18 1900 Intake Total 240 343.00 Output Total 815 700 Balance -575 -357.00 Intake, IV 100.00 Intake, Oral 240 243 Number 2 1 Bowel Movements Output, 15 Drainage Output, Urine 800 700 PATIENT WEIGHT: Weight (lb): 110 Weight (oz): 14.28 Weight (kg): 50.300 Medications: Active Meds + DC'd Last 24 Hrs Losartan Potassium (COZAAR) 50 MG DAILY PO Acetaminophen (TYLENOL) 650 MG ONCE ONE PO (DC) Losartan Potassium (COZAAR) 25 MG ONCE ONE PO (D C) Bisacodyl (DULCOLAX) 10 MG DAILY PRN PRN RECTAL Magnesium Hydroxide (MILK OF MAGNESIA) 15 ML ONC E ONE PO (DC) Sodium Chloride (SODIUM CHLORIDE) 10 ML ASDIR IV Aspirin (ASPIRIN) 81 MG DAILY PO Clopidogrel Bisulfate (Plavix) 75 MG DAILY PO Docusate Sodium (COLACE) 100 MG BID PO Losartan Potassium (COZAAR) 25 MG DAILY PO (DC) Metoprolol Tartrate (LOPRESSOR) 50 MG BID PO Polyethylene Glycol (MIRALAX) 17 GM DAILY PO Levothyroxine Sodium (Synthroid) 50 MCG DAILY 06 00 PO Sodium Chloride (SODIUM CHLORIDE 0.9%) 250 ML ON CE ONE IV Atorvastatin Calcium (LIPITOR) 40 MG BEDTIME PO Topiramate (TOPAMAX) 25 MG BID PO Physical Exam General appearance: alert, awake, oriented Head/Eyes: atraumatic, normal conjunctiva/sclera , normal eyelids/periorb., normocephalic Neck: full range of motion, normal thyroid, no J VD Cardiovascular: normal heart sounds, regular rat e rhythm Respiratory: aerating well, clear to auscultatio n Abdomen: non-tender, normal bowel sounds, soft, no distention Extremities: moves all, no calf tenderness, no e pina (left groin hematoma ) 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, oriented X 3, CNII-XII intact, normal speech, no motor deficits, no sensory deficits Skin: dry, intact Results Findings/Data: Laboratory Tests 01/19 0515 Chemistry Sodium (134 - 147 mEq/L) 141 Potassium (3.4 - 5.0 mEq/L) 4.5 Chloride (100 - 108 mEq/L) 115 H Carbon Dioxide (21 - 33 mEq/l) 20 L Anion Gap (0 - 20) 10 BUN (7 - 18 mg/dL) 17 Creatinine (0.6 - 1.3 mg/dL) 1.0 Glomerular Filtr Rate (70 - 80) 53.1 L Glucose (70 - 110 mg/dL) 98 Calcium (8.0 - 10.5 mg/dL) 7.5 L Ionized Calcium Racquel (1.09 - 1.30 MMOL/L) 1.04 L Phosphorus (2.5 - 4.9 MG/DL) 2.2 L Magnesium (1.80 - 2.40 mg/dL) 2.16 Laboratory Tests 01/19 0515 Hematology WBC (4.5 - 11.0 x10 3/uL) 12.8 H RBC (3.54 - 5.02 x10 6/uL) 2.52 L Hgb (11.0 - 15.0 g/dL) 7.8 L Hct (33.0 - 45.0 %) 24.1 L MCV (81.0 - 99.0 fL) 95.6 MCH (27.0 - 33.0 pg) 31.0 MCHC (33.0 - 37.0 g/dL) 32.4 L RDW (11.5 - 14.5 %) 15.6 H Plt Count (150 - 400 x10 3/uL) 212 MPV (7.0 - 9.0 fL) 10.8 H Neut % (Auto) (56.0 - 77.0 %) 69.4 Lymph % (Auto) (14.0 - 32.0 %) 13.7 L Falls % (Auto) (4.8 - 9.0 %) 8.5 Eos % (Auto) (0.3 - 3.7 %) 6.8 H Baso % (Auto) (0.0 - 2.0 %) 0.9 Neut # (Auto) (2.0 - 7.6 x10 3/uL) 8.85 H Lymph # (Auto) (1.0 - 3.8 x10 3/uL) 1.75 Falls # (Auto) (0.1 - 0.8 x10 3/uL) 1.08 H Eos # (Auto) (0.0 - 0.2 x10 3/uL) 0.87 H Baso # (Auto) (0.0 - 0.2 x10 3/uL) 0.12 Abs Immat Gran (auto) (0.00 - 0.03 x10 3/uL) 0. 09 H Add Manual Diff NO Immature Gran % (0.0 - 2.0 %) 0.7 Nucleated RBC % (0 - 0 %) 0.0 Nucleated RBCs # (Man) (0.0 - 0.1 x10 3/uL) 0.0 0 Treatment Prophylaxis Treatment Prophylaxis Anti-hypertensives: losartan potassium Diagnosis, Assessment Plan Consultants: cardiology, cardiovascular surgery, colorectal surgery Free Text DxA P Notes Free text DxA P notes: hemorrhage from left femoral artery left common femoral artery pseudoaneurysm anemia due to acute blood loss acute respiratory failure --post procedure CAD CKD3 HTN hypothyroid hemorrhage from left femoral artery anemia due to acute blood loss vascular surgeon consult -- repair artery --yes ter monitor in CCU transfuse 2 units RBBC monitor H H -- transfuse if < 7 respiratory failure post procedure -- now resolve extubated in the CCU CAD with stents cardiology consult ASA/plavix as cardiology CKD-- stable HTN-- continue cozaar and metoprolol stable hypothyroid-- continue home med 01/14- she complaint of headache -- no cp no sob -- she is hemodynamic stable -- H H -- stable -- after 2 units blood transfu stephanie -- continue monitor in CCU 01/15- she is stable no new event -- H H -- stable -post transfusion -- continue monitor in CCU 01/16-- she feel well -- CT of lower extremity 1. Decreased size and near resolution of previo usly described hematoma in the superficial soft tissues of the medial aspect of the proximal thigh with drain in place. 2. New nonspecific enlargement and edema within the left adductor muscles. 3. Slight increased size of possible pseudoaneur ysm near the common femoral artery bifurcation. -- manage as vascular surgeon -- monitor H H --7.6 Bedside percutaneous ultrasound guided thrombin injection in the left common femoral artery pseudoaneurysm 11759 01/17- she feel well . no dizziness no cp no sob no abdominal pain -- H H --6.1-- transfuse 2 units blood -- continue monitor H H in icu 01/18- she is doing well -- H H -- 8--post transfusion -- continue monitor H H 01/19- she feel well -- continue bed rest as vascular surgeon -- H H --7.8 -- continue monitor H H Quality: Gen Med Crit Care Current Medications Current medication review: Current Medications Sig/Brandi Start time Last Medication Dose Route Stop Time Status Admin Calcium Gluconate/ 50 ML ONCE ONE 01/13 1115 DC 01/13 Sodium Chloride IV 01/13 1124 1204 Aspirin 81 MG DAILY 01/13 900 AC 01/13 PO 02/12 0859 0829 Clopidogrel Bisulfate 75 MG DAILY 01/13 900 A C 01/13 PO 02/12 0859 0828 Docusate Sodium 100 MG BID 01/13 900 AC 01/13 PO 02/12 0859 0829 Losartan Potassium 25 MG DAILY 01/13 900 AC PO 02/12 0859 0829 Metoprolol Tartrate 50 MG BID 01/13 900 AC PO 02/11 1544 0829 Polyethylene Glycol 17 GM DAILY 01/13 0900 AC 0 01/13 PO 02/12 0859 0828 Levothyroxine Sodium 50 MCG DAILY 00 01/13 0 600 AC 01/13 PO 02/12 0559 0828 Calcium Gluconate/ 100 ML ONCE ONE 01/13 0530 D C 01/13 Sodium Chloride IV 01/13 0549 0622 Magnesium Sulfate 100 ML ONCE ONE 01/13 0530 DC 01/13 IV 01/13 0929 0622 Sodium Bicarbonate 50 MEQ ONCE ONE 01/13 0530 D C 01/13 IV 01/13 0531 0621 Albumin Human 250 ML Q1H 01/12 2230 DC 01/13 IV 01/12 2359 0058 Sodium Chloride 250 ML ONCE ONE 01/12 2215 AC 01/13 IV 01/23 0814 0043 Fentanyl Citrate 50 MCG ONCE ONE 01/12 2145 DC 01/12 IV 01/12 2146 215 Fentanyl Citrate 50 MCG ONCE ONE 01/12 2115 DC IV 01/13 2116 Fentanyl Citrate 0 .STK-MED ONE 01/12 2107 DC 0 01/12 IV 211 Atorvastatin Calcium 40 MG BEDTIME 01/12 2100 A C PO 02/11 2059 Mupirocin 1 APPLIC BID 01/12 2100 AC 01/13 NASAL 01/17 0901 08 Topiramate 25 MG BID 01/12 2100 AC 01/13 PO 02/11 2059 0829 Glycopyrrolate 0 .STK-MED ONE 01/12 193 DC .ROUTE Neostigmine 0 .STK-MED ONE 01/12 193 DC Methylsulfate .ROUTE Cefazolin Sodium 0 .STK-MED ONE 01/12 1848 DC .ROUTE Heparin Sodium 0 .STK-MED ONE 01/12 184 DC .ROUTE Fentanyl Citrate 0 .STK-MED ONE 01/12 1820 DC .ROUTE Etomidate 0 .STK-MED ONE 01/12 181 DC IV Propofol 20 ML .STK-MED ONE 01/12 181 DC IV Rocuronium Rex 0 .STK-MED ONE 01/12 181 DC IV Succinylcholine 0 .STK-MED ONE 01/12 181 DC Chloride IV Iopamidol 100 ML .STK-MED ONE 01/12 1759 DC IV 01/12 1800 1759 Heparin Sodium 0 .STK-MED ONE 01/12 1747 DC .ROUTE Thrombin 0 .STK-MED ONE 01/12 1747 DC TOPICAL Tramadol HCl 50 MG Q6H PRN PRN 01/12 1430 DC PO 01/17 1429 Atropine Sulfate 0.5 MG ASDIR PRN 01/12 1330 DC 01/12 IV 01/13 1324 1653 Sodium Chloride 1,000 ML .[id number] 01/12 1330 DC IV 01/13 0249 Sodium Chloride 500 ML ASDIR PRN 01/12 1330 DC IV 01/13 1324 Home Medications: CLOPIDOGREL (PLAVIX) 75 MG PO DAILY TOPIRAMATE (TOPAMAX) 25 MG PO BID OMEPRAZOLE ER 20 MG PO DAILY METOPROLOL TARTRATE (LOPRESSOR) 50 MG PO BID LOSARTAN (COZAAR) 25 MG PO DAILY [PROLIA] 60 MG SUBQ EVERY 6 MOS traMADol (ULTRAM) 50 MG PO Q6H PRN PRN ACUTE AMADOU N ASPIRIN 81 MG PO DAILY LEVOTHYROXINE (SYNTHROID) 50 MCG PO DAILY ATORVASTATIN (LIPITOR) 40 MG PO BEDTIME I attest that the foregoing medication list in t he medical record is true, accurate, and complete to the best of my knowled ge. Electronically Signed by Rosa Oscar MD on 2 at 104[facility] #:[id number] END OF REPORT 2022-01-19 09:50:00-00:00 [facility]L [facility] cardiology progress note report#:[id number] report status: signed date:01/19/22 time: 09 patient: falguni agarwal unit #: [id number] room/bed: [place] [address] : 39 age: 81 sex: f attend: kimo gill md adm dt: 01/13/22 author: lane corbin md * all edits or amendments must be made on the [employer] document * subjective chief complaint: no change portions of this section were scribed by siomara gamboa on 01/19/22 at 0957 objective general vs/i o: laboratory tests 01/19/22 0515: [embedded image not available] current medications sig/brandi start time last medication dose route stop time status admin losartan potassium 50 mg daily 01/19 900 ac po 02/12 0859 0854 acetaminophen 650 mg once one 01/19 0530 dc po 01/19 0531 0529 losartan potassium 25 mg once one 01/18 1100 dc 01/18 po 01/18 1101 1200 bisacodyl 10 mg daily prn prn 01/18 1045 ac rectal 02/17 1044 1608 magnesium hydroxide 15 ml once one 01/18 1045 d c 01/18 po 01/18 1046 1200 magnesium sulfate 50 ml once one 01/18 0845 dc 01/18 iv 01/18 1044 0859 sodium chloride 10 ml asdir 01/13 2300 ac iv 02/12 2259 aspirin 81 mg daily 01/13 900 ac 01/19 po 02/12 0859 0854 clopidogrel bisulfate 75 mg daily 01/13 900 ac 01/19 po 02/12 0859 0854 docusate sodium 100 mg bid 01/13 900 ac 01/19 po 02/12 0859 0854 losartan potassium 25 mg daily 01/13 900 dc 0 01/18 po 02/12 0859 0844 metoprolol tartrate 50 mg bid 01/13 900 ac po 02/11 1544 0854 polyethylene glycol 17 gm daily 01/13 900 ac 0 01/18 po 02/12 0859 0859 levothyroxine sodium 50 mcg daily 0600 01/13 06 00 ac 01/19 po 02/12 0559 0529 sodium chloride 250 ml once one 01/12 2215 ac 0 01/13 iv 01/23 0814 0043 atorvastatin calcium 40 mg bedtime 01/12 2100 ac 01/18 po 02/11 topiramate 25 mg bid 01/12 2100 ac 01/19 po 02/11 2059 0854 24 hour i o ending at 0700: 01/19 0700 01/18 1900 intake total 240 343.00 output total 815 700 balance -575 -357.00 intake, iv 100.00 intake, oral 240 243 number 2 1 bowel movements output, 15 drainage output, urine 800 700 vital signs: date time temp pulse resp b/p b/p pulse o2 o2 f low fio2 mean ox delivery rate 01/19 0900 85 36 149/65 94 98 01/19 0800 72 25 142/63 90 100 01/19 0700 71 21 131/61 88 100 01/19 0500 74 24 136/62 89 100 01/19 0400 36.7 69 21 152/70 100 100 01/19 0300 74 19 100 01/19 0200 69 17 147/65 93 100 01/19 0100 76 23 168/80 113 100 01/19 0000 36.9 70 20 100 01/18 2302 77 21 156/71 102 100 01/18 2230 83 18 135/65 93 100 01/18 2200 80 24 131/61 88 100 01/18 2130 84 29 126/62 89 99 01/18 2100 83 31 136/65 93 100 01/18 2030 82 27 118/55 79 100 01/18 2000 nasal 2 cannula 01/18 2000 37.1 83 23 122/58 83 100 / 1801 92 38 147/66 95 100 01/18 1700 84 37 99 /16 1630 91 36 142/65 93 100 01/18 1600 37.0 01/18 1600 81 35 126/59 85 99 / 1530 86 24 110/56 80 100 / 1500 84 37 111/55 79 100 / 1430 83 38 98/47 68 100 01/18 1401 88 37 112/67 83 99 08/16 1400 88 33 99 08/16 1300 72 35 151/67 96 100 08/16 1200 36.8 08/16 1200 76 42 139/64 92 100 08/16 1100 74 45 133/64 92 100 08/16 1000 73 33 151/65 93 100 patient weight: weight (lb): 110 weight (oz): 14.28 weight (kg): 50.300 status post: 01/16 lt groin pseudoaneurysm repair physical exam general appearance: alert, awake, oriented, no a cute distress head/eyes: atraumatic, clear cornea, eomi, jefferson l conjunctiva/sclera ent: moist mucosal membranes, normal nose neck: full range of motion, non-tender, no jvd, no masses or swelling cardiovascular: cv assessment: regular rate and rhythm, pedal p ulses present respiratory: decreased breath sounds, no distres s abdomen: soft, non-tender, normal bowel sounds, no distention genitourinary: avilez, urine lower extremity: le assessment: normal capillary refill, normal temperature, no calf tenderness, no cyanosis neuro/software support representative: alert, oriented x 3, normal speech wound/incision: location: left femoral groin site w/ ecchymosis and zack chele in. left upper thigh w/ hematoma psychiatry: normal affect, normal judgment/insig ht, normal mood portions of this section were scribed by siomara gamboa on 01/19/22 at 0957 diagnosis, assessment plan consultants: cardiology, cardiovascular surgery, colorectal surgery free text dxa p notes free text dxa p notes: 81 y/o f w/ pmhx of htn, cad s/p rca stents in j [place] 2021, oa, ckd stage iii, lung cancer (in remission) who presented to [facility] c for elective [facility] cad s/p 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 j p drain in place continue plavix, asa, bb, and statin anemia secondary to groin hematoma stable s/p transfusion continue to monitor htn bp labile on losartan, metoprolol ef 55-60% w/ grade 1 d continue to monitor oa stable ckd stage iii stable encourage ambulation once cleared to get oob portions of this section were scribed by siomara gamboa on 01/19/22 at 0957 electronically signed by lane corbin md on at 1228 [facility] #:[id number] end of report 2022-01-18 10:42:00-00:00 [facility]L [facility] Hospitalist Progress Note REPORT#:[id number] REPORT STATUS: Signed DATE:01/18/22 TIME: 1042 PATIENT: FALGUNI AGARWAL UNIT #: [id number] ROOM/BED: [place] [address] : 39 AGE: 81 SEX: F ATTEND: Kimo Gill MD ADM AUTHOR: Rosa Oscar MD * ALL edits or amendments must be made on the [employer]/computer document * Subjective Chief complaint: she is doing well HPI: 81 years old female with PMH CAD with stents , C KD3 , Hx of lung cancer had elective cath yesterday . she developed hematoma on the left femoral site and hypotension . she was given blood transfusion . vascular surgeon was consulted . she had repair sugery yesterday . she was admitt ed to the CCU . now she feel well . no cp no sob no dizziness no nausea no vo miting Review of Systems Constitutional: Denies: fever, generalized weakness, lethargy. ENT: Denies: sore throat. Respiratory: Denies: productive cough (sputum), SOB. Cardiovascular: Denies: chest pain, SHAH (dyspnea on exertion), e pina, orthopnea. GI: Denies: abdominal pain, nausea, vomiting. Neuro: Denies: confusion, dizziness. Objective General VS/I O: Vital Signs: Date Time Temp Pulse Resp B/P B/P Pulse O2 O2 F low FiO2 Mean Ox Delivery Rate 01/18 930 72 27 157/71 102 100 01/18 0900 88 32 179/77 111 98 01/18 08 36.4 01/19 800 Nasal 2 cannula 01/19 800 81 48 141/63 91 100 01/18 0730 80 15 135/61 88 100 01/18 07 75 20 164/72 104 100 08/16 0630 77 31 164/70 101 100 08/16 0430 76 25 152/67 96 98 08/16 0400 36.7 82 24 133/63 91 99 08/16 0330 81 17 144/63 90 99 08/16 0300 79 21 146/65 94 98 08/16 0200 80 20 142/65 94 98 08/16 0130 83 35 128/60 86 99 08/16 0100 81 53 148/65 94 100 08/16 0030 80 38 141/65 93 100 08/16 0000 36.7 81 65 141/65 93 95 08/15 2300 90 42 136/65 93 100 08/15 2230 86 40 124/59 85 100 08/15 2200 84 49 139/63 91 100 08/15 2110 87 27 129/61 88 08/15 2000 Nasal 2 cannula 01/18 2000 36.9 90 21 137/63 91 100 08/15 1930 92 31 120/56 80 100 08/15 1900 92 21 135/63 91 100 08/15 1800 83 36 144/65 93 100 08/15 1730 82 37 139/65 94 100 08/15 1700 82 35 145/67 96 100 08/15 1630 81 24 143/65 93 100 08/15 1600 37.1 79 46 135/63 91 100 08/15 1530 83 39 128/59 85 100 08/15 1500 81 34 137/61 88 100 08/15 1430 80 63 132/63 90 100 08/15 1400 80 32 142/64 92 100 08/15 1300 79 33 156/67 97 100 08/15 1200 36.7 76 48 157/71 102 100 08/15 1100 89 30 142/63 91 98 24 hour I O ending at 0700: 01/18 0700 01/17 1900 Intake Total 200 1170.00 Output Total 660 915 Balance -460 255.00 Intake, IV 600.00 Intake, Oral 200 220 Intake, Oral 0 Supplement Intake, 350 Packed Cells Number 0 Bowel Movements Output, 10 15 Drainage Output, Urine 650 900 Patient 50.3 kg Weight Weight Bed scale Measurement Method PATIENT WEIGHT: Weight (lb): 110 Weight (oz): 14.28 Weight (kg): 50.300 Medications: Active Meds + DC'd Last 24 Hrs Bisacodyl (DULCOLAX) 10 MG DAILY PRN PRN RECTAL (UNV) Magnesium Hydroxide (MILK OF MAGNESIA) 15 ML ONC E ONE PO (UNV) Calcium Gluconate/Sodium Chloride (Calcium Gluco carmen 1 GM/NS 50 mL) 50 ML ONCE ONE IV (DC) Magnesium Sulfate (MAGNESIUM SULFATE 2GM/SWFI 50 ML) 50 ML ONCE ONE IV Magnesium Sulfate (MAGNESIUM SULFATE 2GM/SWFI 50 ML) 50 ML ONCE ONE IV ( DC) Sodium Chloride (SODIUM CHLORIDE 0.9%) 500 ML REINA JOSE M ONCE ONE IV (DC) Sodium Chloride (SODIUM CHLORIDE) 10 ML ASDIR IV Aspirin (ASPIRIN) 81 MG DAILY PO Clopidogrel Bisulfate (Plavix) 75 MG DAILY PO Docusate Sodium (COLACE) 100 MG BID PO Losartan Potassium (COZAAR) 25 MG DAILY PO Metoprolol Tartrate (LOPRESSOR) 50 MG BID PO Polyethylene Glycol (MIRALAX) 17 GM DAILY PO Levothyroxine Sodium (Synthroid) 50 MCG DAILY 06 00 PO Sodium Chloride (SODIUM CHLORIDE 0.9%) 250 ML ON CE ONE IV Atorvastatin Calcium (LIPITOR) 40 MG BEDTIME PO Topiramate (TOPAMAX) 25 MG BID PO Physical Exam General appearance: alert, awake, oriented Head/Eyes: atraumatic, normal conjunctiva/sclera , normal eyelids/periorb., normocephalic Neck: full range of motion, normal thyroid, no J VD Cardiovascular: normal heart sounds, regular rat e rhythm Respiratory: aerating well, clear to auscultatio n Abdomen: non-tender, normal bowel sounds, soft, no distention Extremities: moves all, no calf tenderness, no e pina (left groin hematoma ) 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, oriented X 3, CNII-XII intact, normal speech, no motor deficits, no sensory deficits Skin: dry, intact Results Findings/Data: Laboratory Tests 01/18 0520 Chemistry Sodium (134 - 147 mEq/L) 142 Potassium (3.4 - 5.0 mEq/L) 4.4 Chloride (100 - 108 mEq/L) 114 H Carbon Dioxide (21 - 33 mEq/l) 20 L Anion Gap (0 - 20) 12 BUN (7 - 18 mg/dL) 17 Creatinine (0.6 - 1.3 mg/dL) 1.1 Glomerular Filtr Rate (70 - 80) 47.6 L Glucose (70 - 110 mg/dL) 103 Calcium (8.0 - 10.5 mg/dL) 7.5 L Ionized Calcium Racquel (1.09 - 1.30 MMOL/L) 1.08 L Phosphorus (2.5 - 4.9 MG/DL) 2.8 Magnesium (1.80 - 2.40 mg/dL) 2.05 Laboratory Tests 01/18 01/17 0520 1250 Hematology WBC (4.5 - 11.0 x10 3/uL) 12.9 H RBC (3.54 - 5.02 x10 6/uL) 2.58 L Hgb (11.0 - 15.0 g/dL) 8.0 L 8.3 L Hct (33.0 - 45.0 %) 24.3 L 25.5 L MCV (81.0 - 99.0 fL) 94.2 MCH (27.0 - 33.0 pg) 31.0 MCHC (33.0 - 37.0 g/dL) 32.9 L RDW (11.5 - 14.5 %) 16.0 H Plt Count (150 - 400 x10 3/uL) 267 MPV (7.0 - 9.0 fL) 11.4 H Neut % (Auto) (56.0 - 77.0 %) 69.3 Lymph % (Auto) (14.0 - 32.0 %) 13.5 L Falls % (Auto) (4.8 - 9.0 %) 9.0 Eos % (Auto) (0.3 - 3.7 %) 7.0 H Baso % (Auto) (0.0 - 2.0 %) 0.7 Neut # (Auto) (2.0 - 7.6 x10 3/uL) 8.96 H Lymph # (Auto) (1.0 - 3.8 x10 3/uL) 1.75 Falls # (Auto) (0.1 - 0.8 x10 3/uL) 1.17 H Eos # (Auto) (0.0 - 0.2 x10 3/uL) 0.90 H Baso # (Auto) (0.0 - 0.2 x10 3/uL) 0.09 Abs Immat Gran (auto) (0.00 - 0.03 x10 3/uL) 0. 07 H Add Manual Diff NO Immature Gran % (0.0 - 2.0 %) 0.5 Nucleated RBC % (0 - 0 %) 0.0 Nucleated RBCs # (Man) (0.0 - 0.1 x10 3/uL) 0.0 0 Treatment Prophylaxis Treatment Prophylaxis Anti-hypertensives: losartan potassium Diagnosis, Assessment Plan Consultants: cardiology, cardiovascular surgery, colorectal surgery Free Text DxA P Notes Free text DxA P notes: hemorrhage from left femoral artery left common femoral artery pseudoaneurysm anemia due to acute blood loss acute respiratory failure --post procedure CAD CKD3 HTN hypothyroid hemorrhage from left femoral artery anemia due to acute blood loss vascular surgeon consult -- repair artery --yes monitor in CCU transfuse 2 units RBBC monitor H H -- transfuse if < 7 respiratory failure post procedure -- now resolve extubated in the CCU CAD with stents cardiology consult ASA/plavix as cardiology CKD-- stable HTN-- continue cozaar and metoprolol stable hypothyroid-- continue home med 01/14- she complaint of headache -- no cp no sob -- she is hemodynamic stable -- H H -- stable -- after 2 units blood transfu stephanie -- continue monitor in CCU 01/15- she is stable no new event -- H H -- stable -post transfusion -- continue monitor in CCU 01/16-- she feel well -- CT of lower extremity 1. Decreased size and near resolution of previo usly described hematoma in the superficial soft tissues of the medial aspect of the proximal thigh with drain in place. 2. New nonspecific enlargement and edema within the left adductor muscles. 3. Slight increased size of possible pseudoaneur ysm near the common femoral artery bifurcation. -- manage as vascular surgeon -- monitor H H --7.6 Bedside percutaneous ultrasound guided thrombin injection in the left common femoral artery pseudoaneurysm 13720 01/17- she feel well . no dizziness no cp no sob no abdominal pain -- H H --6.1-- transfuse 2 units blood -- continue monitor H H in icu 01/18- she is doing well -- H H -- 8--post transfusion -- continue monitor H H Quality: Gen Med Crit Care Current Medications Current medication review: Current Medications Sig/Brandi Start time Last Medication Dose Route Stop Time Status Admin Calcium Gluconate/ 50 ML ONCE ONE 01/13 1115 DC 01/13 Sodium Chloride IV 01/13 1124 1204 Aspirin 81 MG DAILY 01/13 900 AC 01/13 PO 02/12 0859 0829 Clopidogrel Bisulfate 75 MG DAILY 01/13 900 AC 01/13 PO 02/12 0859 0828 Docusate Sodium 100 MG BID 01/13 900 AC 01/13 PO 02/12 0859 0829 Losartan Potassium 25 MG DAILY 01/13 900 AC 0 01/13 PO 02/12 0859 0829 Metoprolol Tartrate 50 MG BID 01/13 900 AC PO 02/11 1544 0829 Polyethylene Glycol 17 GM DAILY 01/13 900 AC 0 01/13 PO 02/12 0859 0828 Levothyroxine Sodium 50 MCG DAILY 01/13 06 00 AC 01/13 PO 02/12 0559 0828 Calcium Gluconate/ 100 ML ONCE ONE 01/13 0530 D C 01/13 Sodium Chloride IV 01/13 0549 0622 Magnesium Sulfate 100 ML ONCE ONE 01/13 0530 DC 01/13 IV 01/13 0929 0622 Sodium Bicarbonate 50 MEQ ONCE ONE 01/13 0530 D C 01/13 IV 01/13 0531 0621 Albumin Human 250 ML Q1H 01/12 2230 DC 01/13 IV 01/12 2359 0058 Sodium Chloride 250 ML ONCE ONE 01/12 2215 AC 0 01/13 IV 01/23 0814 0043 Fentanyl Citrate 50 MCG ONCE ONE 01/12 214 DC 01/12 IV 01/12 2146 2151 Fentanyl Citrate 50 MCG ONCE ONE 01/12 211 DC IV 01/12 211 Fentanyl Citrate 0 .STK-MED ONE 01/12 2107 DC 01/12 IV 2112 Atorvastatin Calcium 40 MG BEDTIME 01/12 2100 A C PO 02/11 2059 Mupirocin 1 APPLIC BID 01/12 2100 AC 01/13 NASAL 01/17 0901 0829 Topiramate 25 MG BID 01/12 2100 AC 01/13 PO 02/11 205 0829 Glycopyrrolate 0 .STK-MED ONE 01/12 1931 DC .ROUTE Neostigmine 0 .STK-MED ONE 01/12 1931 DC Methylsulfate .ROUTE Cefazolin Sodium 0 .STK-MED ONE 01/13 1848 DC .ROUTE Heparin Sodium 0 .STK-MED ONE 01/12 184 DC .ROUTE Fentanyl Citrate 0 .STK-MED ONE 01/12 1820 DC .ROUTE Etomidate 0 .STK-MED ONE 01/12 181 DC IV Propofol 20 ML .STK-MED ONE 01/12 181 DC IV Rocuronium Rex 0 .STK-MED ONE 01/12 181 DC IV Succinylcholine 0 .STK-MED ONE 01/12 181 DC Chloride IV Iopamidol 100 ML .STK-MED ONE 01/12 1759 DC IV 01/12 1800 1759 Heparin Sodium 0 .STK-MED ONE 01/12 174 DC .ROUTE Thrombin 0 .STK-MED ONE 01/12 174 DC TOPICAL Tramadol HCl 50 MG Q6H PRN PRN 01/12 1430 DC PO 01/17 1429 Atropine Sulfate 0.5 MG ASDIR PRN 01/12 1330 DC 01/12 IV 01/13 1324 1653 Sodium Chloride 1,000 ML .[id number] 01/12 1330 DC IV 01/13 0249 Sodium Chloride 500 ML ASDIR PRN 01/12 1330 DC IV 01/13 1324 Home Medications: CLOPIDOGREL (PLAVIX) 75 MG PO DAILY TOPIRAMATE (TOPAMAX) 25 MG PO BID OMEPRAZOLE ER 20 MG PO DAILY METOPROLOL TARTRATE (LOPRESSOR) 50 MG PO BID LOSARTAN (COZAAR) 25 MG PO DAILY [PROLIA] 60 MG SUBQ EVERY 6 MOS traMADol (ULTRAM) 50 MG PO Q6H PRN PRN ACUTE AMADOU N ASPIRIN 81 MG PO DAILY LEVOTHYROXINE (SYNTHROID) 50 MCG PO DAILY ATORVASTATIN (LIPITOR) 40 MG PO BEDTIME I attest that the foregoing medication list in t medical record is true, accurate, and complete to the best of my knowled ge. Electronically Signed by Rosa Oscar MD on 2 at 1045 RPT #:[id number] END OF REPORT 2022-01-18 10:41:00-00:00 [facility] report#:[id number] report status: signed date:01/18/22 time: 1041 patient: falguni agarwal unit #: [id number] room/bed: [place] [address] : 39 age: 81 sex: f attend: kimo gill md adm dt: 01/13/22 author: lane corbin md * all edits or amendments must be made on the [employer]/computer document * subjective chief complaint: doing ok portions of this section were scribed by siomara gamboa on 01/18/22 at 1057 objective general vs/i o: laboratory tests 01/18/22 0520: [embedded image not available] 01/17/22 1250: [embedded image not available] current medications sig/brandi start time last medication dose route stop time status admin bisacodyl 10 mg daily prn prn 01/18 1045 unv rectal 02/17 1044 magnesium hydroxide 15 ml once one 01/18 1045 u nv po 01/18 1046 calcium gluconate/ 50 ml once one 01/18 0845 dc 01/18 sodium chloride iv 01/18 0854 0859 magnesium sulfate 50 ml once one 01/18 0845 ac 01/18 iv 01/18 1044 0859 magnesium sulfate 50 ml once one 01/17 1015 dc 01/17 iv 01/17 1214 1107 sodium chloride 500 ml bolus once one 01/17 101 5 dc 01/17 iv 01/17 1114 1107 sodium chloride 10 ml asdir 01/13 2300 ac iv 02/12 2259 aspirin 81 mg daily 01/13 900 ac 01/18 po 02/12 0859 0844 clopidogrel bisulfate 75 mg daily 01/13 900 ac 01/18 po 02/12 0859 0844 docusate sodium 100 mg bid 01/13 900 ac 01/18 po 02/12 0859 0844 losartan potassium 25 mg daily 01/13 09 ac po 02/12 0859 0844 metoprolol tartrate 50 mg bid 01/13 09 ac po 02/11 1544 0844 polyethylene glycol 17 gm daily 01/13 900 ac 0 01/18 po 02/12 0859 0859 levothyroxine sodium 50 mcg daily 0601/13 06 00 ac 01/18 po 02/12 0559 0610 sodium chloride 250 ml once one 01/12 2215 ac 0 01/13 iv 01/23 0814 0043 atorvastatin calcium 40 mg bedtime 01/12 2100 a c 01/17 po 02/11 topiramate 25 mg bid 01/12 2100 ac 01/18 po 02/11 24 hour i o ending at 0700: 01/18 0700 01/17 1900 intake total 200 1170.00 output total 660 915 balance -460 255.00 intake, iv 600.00 intake, oral 200 220 intake, oral 0 supplement intake, 350 packed cells number 0 bowel movements output, 10 15 drainage output, urine 650 900 patient 50.3 kg weight weight bed scale measurement method vital signs: date time temp pulse resp b/p b/p pulse o2 o2 flow fio2 mean ox delivery rate 01/18 0930 72 27 157/71 102 100 01/18 0900 88 32 179/77 111 98 01/18 0800 36.4 01/18 0800 nasal 2 cannula 01/18 0800 81 48 141/63 91 100 /16 0730 80 15 135/61 88 100 16 0700 75 20 164/72 104 100 /16 0630 77 31 164/70 101 100 08/16 0430 76 25 152/67 96 98 08/16 0400 36.7 82 24 133/63 91 99 08/16 0330 81 17 144/63 90 99 08/16 0300 79 21 146/65 94 98 08/16 0200 80 20 142/65 94 98 08/16 0130 83 35 128/60 86 99 08/16 0100 81 53 148/65 94 100 08/16 0030 80 38 141/65 93 100 08/16 0000 36.7 81 65 141/65 93 95 08/15 2300 90 42 136/65 93 100 08/15 2230 86 40 124/59 85 100 08/15 2200 84 49 139/63 91 100 08/15 2110 87 27 129/61 88 01/18 2000 nasal 2 cannula 01/18 2000 36.9 90 21 137/63 91 100 08/15 1930 92 31 120/56 80 100 08/15 1900 92 21 135/63 91 100 08/15 1800 83 36 144/65 93 100 08/15 1730 82 37 139/65 94 100 08/15 1700 82 35 145/67 96 100 08/15 1630 81 24 143/65 93 100 08/15 1600 37.1 79 46 135/63 91 100 08/15 1530 83 39 128/59 85 100 08/15 1500 81 34 137/61 88 100 08/15 1430 80 63 132/63 90 100 08/15 1400 80 32 142/64 92 100 08/15 1300 79 33 156/67 97 100 08/15 1200 36.7 76 48 157/71 102 100 08/15 1100 89 30 142/63 91 98 patient weight: weight (lb): 110 weight (oz): 14.28 weight (kg): 50.300 status post: 01/16 lt groin pseudoaneurysm repair physical exam general appearance: alert, awake, oriented, no a cute distress head/eyes: atraumatic, clear cornea, eomi, jefferson l conjunctiva/sclera ent: moist mucosal membranes, normal nose neck: full range of motion, non-tender, no jvd, no masses or swelling cardiovascular: cv assessment: regular rate and rhythm, pedal p ulses present respiratory: decreased breath sounds, no distres s abdomen: soft, non-tender, normal bowel sounds, no distention lower extremity: le assessment: normal temperature, no calf tend erness, no edema neuro/software support representative: alert, oriented x 3, normal speech wound/incision: location: left femoral groin site w/ ecchymosis and zack chele in. left upper thigh w/ hematoma psychiatry: normal affect, normal judgment/insig ht, normal mood portions of this section were scribed by siomara gamboa on 01/18/22 at 1057 diagnosis, assessment plan consultants: cardiology, cardiovascular surgery, colorectal surgery free text dxa p notes free text dxa p notes: 81 y/o f w/ pmhx of htn, cad s/p rca stents in j eleno 2021, oa, ckd stage iii, lung cancer (in remission) who presented to [facility] c for elective [facility] cad s/p [facility] rca stents patent, moderate lad disease s/p left groin hematoma continue plavix, asa, bb, and statin anemia secondary to groin hematoma stable s/p transfusion continue to monitor htn bp labile on losartan, metoprolol increase losartan to 50 mg daily ef 55-60% w/ grade 1 d continue to monitor oa stable ckd stage iii stable portions of this section were scribed by siomara gamboa on 01/18/22 at 1057 electronically signed by lane corbin md on at 1228 [facility] #:[id number] end of report 2022-01-17 11:40:00-00:00 [facility] Hospitalist Progress Note REPORT#:[id number] REPORT STATUS: Signed DATE:01/17/22 TIME: 1140 PATIENT: FALGUNI AGARWAL UNIT #: [id number] ROOM/BED: [place] [address] : 39 AGE: 81 SEX: F ATTEND: Kimo Gill MD ADM AUTHOR: Rosa Oscar MD * ALL edits or amendments must be made on the [employer] document * Subjective Chief complaint: she feel well HPI: 81 years old female with PMH CAD with stents , C KD3 , Hx of lung cancer had elective cath yesterday . she developed hematoma on the left femoral site and hypotension . she was given blood transfusion . vascular surgeon was consulted . she had repair sugery yesterday . she was admitt ed to the CCU . now she feel well . no cp no sob no dizziness no nausea no vo miting Review of Systems Constitutional: Denies: fatigue, fever, lethargy. Respiratory: Denies: SOB, wheezing. Cardiovascular: Denies: chest pain, SHAH (dyspnea on exertion), e pina, orthopnea. GI: Denies: abdominal pain, hematemesis, hematochezi a, nausea, vomiting. : Denies: flank pain, hematuria. Neuro: Denies: confusion, dizziness. Objective General VS/I O: Vital Signs: Date Time Temp Pulse Resp B/P B/P Pulse O2 O2 F low FiO2 Mean Ox Delivery Rate 01/17 08 Nasal 2 cannula 01/17 0716 36.9 80 18 160/70 100 01/17 0714 36.8 84 18 160/70 100 01/17 0645 36.6 80 18 140/65 100 01/17 0625 80 43 144/65 93 100 01/17 0615 82 58 131/70 98 98 01/17 0614 36.4 80 16 141/63 100 01/17 0600 78 29 149/63 90 100 01/17 0545 87 35 140/64 92 99 08/15 0537 36.6 82 16 153/66 100 08/15 0525 84 25 151/71 102 97 08/15 0515 82 32 143/65 94 99 08/15 0508 36.8 81 24 140/63 100 08/15 0500 82 23 140/63 91 100 08/15 0430 79 28 129/63 90 100 08/15 0400 36.8 Room air 08/15 0400 79 23 113/55 79 100 08/15 0330 80 48 110/55 79 100 08/15 0300 80 34 113/65 84 100 08/15 0230 79 53 111/56 80 100 08/15 0200 76 56 106/53 77 100 08/15 0130 79 53 103/54 76 98 08/15 0100 82 33 107/52 75 98 08/15 0030 91 40 110/55 79 99 08/15 0012 37.1 08/15 0000 97 27 106/53 76 99 08/14 2330 102 30 114/55 79 99 08/14 2300 99 36 125/58 83 98 08/14 2230 102 23 123/59 85 99 08/14 2200 100 51 105/53 75 100 08/14 2130 103 33 132/60 86 100 08/14 2100 104 24 121/58 84 100 08/14 2030 106 33 112/54 78 100 08/14 2022 36.7 08/14 2000 105 26 140/65 93 100 08/14 1901 114 40 127/68 92 100 08/14 1730 109 48 138/65 93 99 08/14 1700 98 51 134/63 90 97 08/14 1630 98 41 132/62 89 93 08/14 1600 36.6 08/14 1600 101 60 137/60 87 100 08/14 1530 104 36 119/56 81 100 08/14 1500 103 28 127/60 86 99 08/14 1430 96 24 137/60 91 100 08/14 1401 98 35 141/67 97 100 08/14 1400 96 38 98 08/14 1353 114 32 91/56 68 100 08/14 1334 98 20 139/64 92 100 08/14 1330 101 27 100 08/14 1300 100 31 135/64 89 100 08/14 1230 90 25 152/66 95 100 08/14 1200 97 49 137/63 90 100 24 hour I O ending at 0700: 01/17 0700 08/14 1900 Intake Total 120 400 Output Total 658 550 Balance -538 -150 Intake, Oral 120 400 Output, 8 Drainage Output, Urine 650 550 Patient 49.8 kg Weight Weight Bed scale Measurement Method PATIENT WEIGHT: Weight (lb): 109 Weight (oz): 12.64 Weight (kg): 49.800 Medications: Active Meds + DC'd Last 24 Hrs Magnesium Sulfate (MAGNESIUM SULFATE 2GM/SWFI 50 ML) 50 ML ONCE ONE IV Sodium Chloride (SODIUM CHLORIDE 0.9%) 500 ML REINA JOSE M ONCE ONE IV (DC) Calcium Gluconate/Sodium Chloride (Calcium Gluco carmen 2 GM/NS 100 mL) 100 ML ONCE ONE IV (DC) Acetaminophen (TYLENOL) 650 MG ONCE ONE PO (DC) Lidocaine HCl (LIDOCAINE HCL/PF) 30 ML ONCE ONE LOCAL (DC) Thrombin (RECOTHROM) 5,000 UNITS ONCE ONE TOPICA L (DC) Sodium Chloride (SODIUM CHLORIDE) 10 ML ASDIR IV Aspirin (ASPIRIN) 81 MG DAILY PO Clopidogrel Bisulfate (Plavix) 75 MG DAILY PO Docusate Sodium (COLACE) 100 MG BID PO Losartan Potassium (COZAAR) 25 MG DAILY PO Metoprolol Tartrate (LOPRESSOR) 50 MG BID PO Polyethylene Glycol (MIRALAX) 17 GM DAILY PO Levothyroxine Sodium (Synthroid) 50 MCG DAILY 06 00 PO Sodium Chloride (SODIUM CHLORIDE 0.9%) 250 ML ON CE ONE IV Atorvastatin Calcium (LIPITOR) 40 MG BEDTIME PO Mupirocin (BACTROBAN 2% 22 GM OINTMENT) 1 APPLIC BID NASAL (DC) Topiramate (TOPAMAX) 25 MG BID PO Physical Exam General appearance: alert, awake, oriented Head/Eyes: atraumatic, normal conjunctiva/sclera , normal eyelids/periorb., normocephalic Neck: full range of motion, normal thyroid, no J VD Cardiovascular: normal heart sounds, regular rat e rhythm Respiratory: aerating well, clear to auscultatio n Abdomen: non-tender, normal bowel sounds, soft, no distention Extremities: moves all, no calf tenderness, no e pina (left groin hematoma ) 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, oriented X 3, CNII-XII intact, normal speech, no motor deficits, no sensory deficits Skin: dry, intact Results Findings/Data: Laboratory Tests 01/17 0405 Chemistry Sodium (134 - 147 mEq/L) 137 Potassium (3.4 - 5.0 mEq/L) 3.9 Chloride (100 - 108 mEq/L) 111 H Carbon Dioxide (21 - 33 mEq/l) 21 Anion Gap (0 - 20) 9 BUN (7 - 18 mg/dL) 23 H Creatinine (0.6 - 1.3 mg/dL) 1.3 Glomerular Filtr Rate (70 - 80) 39.2 L Glucose (70 - 110 mg/dL) 107 Calcium (8.0 - 10.5 mg/dL) 7.4 L Ionized Calcium Racquel (1.09 - 1.30 MMOL/L) 1.05 L Phosphorus (2.5 - 4.9 MG/DL) 3.8 Magnesium (1.80 - 2.40 mg/dL) 1.84 Laboratory Tests 01/17 01/16 0405 1920 Hematology WBC (4.5 - 11.0 x10 3/uL) 13.2 H RBC (3.54 - 5.02 x10 6/uL) 1.98 L Hgb (11.0 - 15.0 g/dL) 6.1 *L 7.1 L Hct (33.0 - 45.0 %) 18.8 L 21.7 L MCV (81.0 - 99.0 fL) 94.9 MCH (27.0 - 33.0 pg) 30.8 MCHC (33.0 - 37.0 g/dL) 32.4 L RDW (11.5 - 14.5 %) 16.0 H Plt Count (150 - 400 x10 3/uL) 248 MPV (7.0 - 9.0 fL) 11.4 H Neut % (Auto) (56.0 - 77.0 %) 67.6 Lymph % (Auto) (14.0 - 32.0 %) 16.6 Falls % (Auto) (4.8 - 9.0 %) 9.7 H Eos % (Auto) (0.3 - 3.7 %) 4.7 H Baso % (Auto) (0.0 - 2.0 %) 0.8 Neut # (Auto) (2.0 - 7.6 x10 3/uL) 8.89 H Lymph # (Auto) (1.0 - 3.8 x10 3/uL) 2.19 Falls # (Auto) (0.1 - 0.8 x10 3/uL) 1.28 H Eos # (Auto) (0.0 - 0.2 x10 3/uL) 0.62 H Baso # (Auto) (0.0 - 0.2 x10 3/uL) 0.11 Abs Immat Gran (auto) (0.00 - 0.03 x10 3/uL) 0. 08 H Add Manual Diff NO Immature Gran % (0.0 - 2.0 %) 0.6 Nucleated RBC % (0 - 0 %) 0.0 Nucleated RBCs # (Man) (0.0 - 0.1 x10 3/uL) 0.0 0 Diagnosis, Assessment Plan Consultants: cardiology, cardiovascular surgery, colorectal surgery Free Text DxA P Notes Free text DxA P notes: hemorrhage from left femoral artery left common femoral artery pseudoaneurysm anemia due to acute blood loss acute respiratory failure --post procedure CAD CKD3 HTN hypothyroid hemorrhage from left femoral artery anemia due to acute blood loss vascular surgeon consult -- repair artery --yes ter monitor in CCU transfuse 2 units RBBC monitor H H -- transfuse if < 7 respiratory failure post procedure -- now resolve extubated in the CCU CAD with stents cardiology consult ASA/plavix as cardiology CKD-- stable HTN-- continue cozaar and metoprolol stable hypothyroid-- continue home med 01/14- she complaint of headache -- no cp no sob -- she is hemodynamic stable -- H H -- stable -- after 2 units blood transfu stephanie -- continue monitor in CCU 01/15- she is stable no new event -- H H -- stable -post transfusion -- continue monitor in CCU 01/16-- she feel well -- CT of lower extremity 1. Decreased size and near resolution of previo usly described hematoma in the superficial soft tissues of the medial aspect of the proximal thigh with drain in place. 2. New nonspecific enlargement and edema within the left adductor muscles. 3. Slight increased size of possible pseudoaneur ysm near the common femoral artery bifurcation. -- manage as vascular surgeon -- monitor H H --7.6 Bedside percutaneous ultrasound guided thrombin injection in the left common femoral artery pseudoaneurysm 04143 01/17- she feel well . no dizziness no cp no sob no abdominal pain -- H H --6.1-- transfuse 2 units blood -- continue monitor H H in icu Quality: Gen Med Crit Care Current Medications Current medication review: Current Medications Sig/Brandi Start time Last Medication Dose Route Stop Time Status Admin Calcium Gluconate/ 50 ML ONCE ONE 01/13 1115 DC 01/13 Sodium Chloride IV 01/13 1124 1204 Aspirin 81 MG DAILY 01/13 900 AC 01/13 PO 02/12 0859 0829 Clopidogrel Bisulfate 75 MG DAILY 01/13 900 AC 01/13 PO 02/12 0859 0828 Docusate Sodium 100 MG BID 01/13 900 AC 01/13 PO 02/12 0859 0829 Losartan Potassium 25 MG DAILY 01/13 900 AC PO 02/12 0859 0829 Metoprolol Tartrate 50 MG BID 01/13 900 AC PO 02/11 1544 0829 Polyethylene Glycol 17 GM DAILY 01/13 900 AC 0 01/13 PO 02/12 0859 0828 Levothyroxine Sodium 50 MCG DAILY 0600 01/13 06 00 AC 01/13 PO 02/12 0559 0828 Calcium Gluconate/ 100 ML ONCE ONE 01/13 0530 D C 01/13 Sodium Chloride IV 01/13 0549 0622 Magnesium Sulfate 100 ML ONCE ONE 01/13 0530 DC 01/13 IV 01/13 0929 0622 Sodium Bicarbonate 50 MEQ ONCE ONE 01/13 0530 D C 01/13 IV 01/13 0531 0621 Albumin Human 250 ML Q1H 01/12 2230 DC 01/13 IV 01/12 2359 0058 Sodium Chloride 250 ML ONCE ONE 01/12 2215 AC 0 01/13 IV 01/23 0814 0043 Fentanyl Citrate 50 MCG ONCE ONE 01/12 2145 DC 01/12 IV 01/12 214 2151 Fentanyl Citrate 50 MCG ONCE ONE 01/12 2115 DC IV 01/13 2116 Fentanyl Citrate 0 .STK-MED ONE 01/12 2107 DC 0 01/12 IV 2112 Atorvastatin Calcium 40 MG BEDTIME 01/12 2100 A C PO 02/11 2059 Mupirocin 1 APPLIC BID 01/12 2100 AC 01/13 NASAL 01/17 0901 0829 Topiramate 25 MG BID 01/12 2100 AC 01/13 PO 02/11 Glycopyrrolate 0 .STK-MED ONE 01/12 193 DC .ROUTE Neostigmine 0 .STK-MED ONE 01/12 1931 DC Methylsulfate .ROUTE Cefazolin Sodium 0 .STK-MED ONE 01/12 1848 DC .ROUTE Heparin Sodium 0 .STK-MED ONE 01/12 184 DC .ROUTE Fentanyl Citrate 0 .STK-MED ONE 01/12 1820 DC .ROUTE Etomidate 0 .STK-MED ONE 01/12 1814 DC IV Propofol 20 ML .STK-MED ONE 01/12 1814 DC IV Rocuronium Rex 0 .STK-MED ONE 01/12 1814 DC IV Succinylcholine 0 .STK-MED ONE 01/12 181 DC Chloride IV Iopamidol 100 ML .STK-MED ONE 01/12 1759 DC IV 01/12 1800 1759 Heparin Sodium 0 .STK-MED ONE 01/12 1747 DC .ROUTE Thrombin 0 .STK-MED ONE 01/12 1747 DC TOPICAL Tramadol HCl 50 MG Q6H PRN PRN 01/12 1430 DC PO 01/17 1429 Atropine Sulfate 0.5 MG ASDIR PRN 01/12 1330 DC 01/12 IV 01/13 1324 1653 Sodium Chloride 1,000 ML .[id number] 01/12 1330 DC IV 01/13 0249 Sodium Chloride 500 ML ASDIR PRN 01/12 1330 DC IV 01/13 1324 Home Medications: CLOPIDOGREL (PLAVIX) 75 MG PO DAILY TOPIRAMATE (TOPAMAX) 25 MG PO BID OMEPRAZOLE ER 20 MG PO DAILY METOPROLOL TARTRATE (LOPRESSOR) 50 MG PO BID LOSARTAN (COZAAR) 25 MG PO DAILY [PROLIA] 60 MG SUBQ EVERY 6 MOS traMADol (ULTRAM) 50 MG PO Q6H PRN PRN ACUTE AMADOU N ASPIRIN 81 MG PO DAILY LEVOTHYROXINE (SYNTHROID) 50 MCG PO DAILY ATORVASTATIN (LIPITOR) 40 MG PO BEDTIME I attest that the foregoing medication list in t he medical record is true, accurate, and complete to the best of my knowled ge. Electronically Signed by Rosa Oscar MD on 2 at 1144 [facility] #:[id number] END OF REPORT 2022-01-17 11:36:00-00:00 [facility] ([facility]) Critical Care Progress Note REPORT#:[id number] REPORT STATUS: Signed DATE:01/17/22 TIME: 1136 PATIENT: FALGUNI AGARWAL UNIT #: [id number] ROOM/BED: 3313-1 : 39 AGE: 81 SEX: F ATTEND: Kimo Gill MD ADM AUTHOR: Aurora Saini * ALL edits or amendments must be made on the [employer]/computer document * Subjective Chief complaint: elective cardiac cath HPI: 81 yo F with PMH of pretension coronary artery disease s/p 3 stents, CKD stage III, lung cancer in remission was admitted for e lective cath. Patient had a cardiac cath and her left fe moral site developed hematoma which did not resolve on holding pressure. Vascula r surgery was consulted for the hematoma, and given that she was hypotension and anemic CT abdomen w as ordered stat. She was planned for emergent exploration and evacuation of hematoma. SHe underwent evacuation of hematoma and repair of common femoral artery on the left side. She was brought to CCU intubated Objective General VS/I O Last Documented: Result Date Time O2 Delivery Nasal cannula 01/17 08 O2 Flow Rate 2 01/17 08 Pulse Ox 100 01/17 0716 B/P 160/70 01/17 0716 Temp 98.5 01/17 07 Pulse 80 01/17 0716 Resp 18 01/17 0716 B/P Mean 93 01/17 0625 FiO2 21 01/13 0922 24 hour I O ending at 0700: 01/17 0700 01/16 1900 Intake Total 120 400 Output Total 658 550 Balance -538 -150 Intake, Oral 120 400 Output, 8 Drainage Output, Urine 650 550 Patient 49.8 kg Weight Weight Bed scale Measurement Method PATIENT WEIGHT: Weight (lb): 109 Weight (oz): 12.64 Weight (kg): 49.800 Medications: Active Meds + DC'd Last 24 Hrs Magnesium Sulfate (MAGNESIUM SULFATE 2GM/SWFI 50 ML) 50 ML ONCE ONE IV Sodium Chloride (SODIUM CHLORIDE 0.9%) 500 ML REINA JOSE M ONCE ONE IV (DC) Calcium Gluconate/Sodium Chloride (Calcium Gluco carmen 2 GM/NS 100 mL) 100 ML ONCE ONE IV (DC) Acetaminophen (TYLENOL) 650 MG ONCE ONE PO (DC) Lidocaine HCl (LIDOCAINE HCL/PF) 30 ML ONCE ONE LOCAL (DC) Thrombin (RECOTHROM) 5,000 UNITS ONCE ONE TOPICA L (DC) Sodium Chloride (SODIUM CHLORIDE) 10 ML ASDIR IV Aspirin (ASPIRIN) 81 MG DAILY PO Clopidogrel Bisulfate (Plavix) 75 MG DAILY PO Docusate Sodium (COLACE) 100 MG BID PO Losartan Potassium (COZAAR) 25 MG DAILY PO Metoprolol Tartrate (LOPRESSOR) 50 MG BID PO Polyethylene Glycol (MIRALAX) 17 GM DAILY PO Levothyroxine Sodium (Synthroid) 50 MCG DAILY 06 00 PO Sodium Chloride (SODIUM CHLORIDE 0.9%) 250 ML ON CE ONE IV Atorvastatin Calcium (LIPITOR) 40 MG BEDTIME PO Mupirocin (BACTROBAN 2% 22 GM OINTMENT) 1 APPLIC BID NASAL (DC) Topiramate (TOPAMAX) 25 MG BID PO Results Findings/data: Laboratory Tests 01/17 405 Chemistry Sodium (134 - 147 mEq/L) 137 Potassium (3.4 - 5.0 mEq/L) 3.9 Chloride (100 - 108 mEq/L) 111 H Carbon Dioxide (21 - 33 mEq/l) 21 Anion Gap (0 - 20) 9 BUN (7 - 18 mg/dL) 23 H Creatinine (0.6 - 1.3 mg/dL) 1.3 Glomerular Filtr Rate (70 - 80) 39.2 L Glucose (70 - 110 mg/dL) 107 Calcium (8.0 - 10.5 mg/dL) 7.4 L Ionized Calcium Racquel (1.09 - 1.30 MMOL/L) 1.05 L Phosphorus (2.5 - 4.9 MG/DL) 3.8 Magnesium (1.80 - 2.40 mg/dL) 1.84 Laboratory Tests 01/17 01/16 0405 1920 Hematology WBC (4.5 - 11.0 x10 3/uL) 13.2 H RBC (3.54 - 5.02 x10 6/uL) 1.98 L Hgb (11.0 - 15.0 g/dL) 6.1 *L 7.1 L Hct (33.0 - 45.0 %) 18.8 L 21.7 L MCV (81.0 - 99.0 fL) 94.9 MCH (27.0 - 33.0 pg) 30.8 MCHC (33.0 - 37.0 g/dL) 32.4 L RDW (11.5 - 14.5 %) 16.0 H Plt Count (150 - 400 x10 3/uL) 248 MPV (7.0 - 9.0 fL) 11.4 H Neut % (Auto) (56.0 - 77.0 %) 67.6 Lymph % (Auto) (14.0 - 32.0 %) 16.6 Falls % (Auto) (4.8 - 9.0 %) 9.7 H Eos % (Auto) (0.3 - 3.7 %) 4.7 H Baso % (Auto) (0.0 - 2.0 %) 0.8 Neut # (Auto) (2.0 - 7.6 x10 3/uL) 8.89 H Lymph # (Auto) (1.0 - 3.8 x10 3/uL) 2.19 Falls # (Auto) (0.1 - 0.8 x10 3/uL) 1.28 H Eos # (Auto) (0.0 - 0.2 x10 3/uL) 0.62 H Baso # (Auto) (0.0 - 0.2 x10 3/uL) 0.11 Abs Immat Gran (auto) (0.00 - 0.03 x10 3/uL) 0. 08 H Add Manual Diff NO Immature Gran % (0.0 - 2.0 %) 0.6 Nucleated RBC % (0 - 0 %) 0.0 Nucleated RBCs # (Man) (0.0 - 0.1 x10 3/uL) 0.0 0 Laboratory Tests 01/17/22 0405: [Embedded Image Not Available] 01/16/22 1920: [Embedded Image Not Available] Radiology data Recent Impressions: ULTRASOUND - US GUIDANCE VASC ACCESS 01/16 141 Report Impression - Status: SIGNED Entered: 01/16/2022 7128 IMPRESSION: Images document successful complete thrombosis o f a left common femoral artery pseudoaneurysm following thrombin injection. Impression By: [email or web address] - Jose Knight D.O. ULTRASOUND - US EXTREM NON VASC COMP 01/17 3789 Report Impression - Status: SIGNED Entered: 01/17/2022 0729 Impression: 1. 3.3 x 1.2 x 2.2 cm thrombosed pseudoaneurysm from the left common femoral artery as above. 2. 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 3. Elevated velocity left proximal superficial f emoral artery suggests focal hemodynamically significant steno sis within that artery. Impression By: Codey - Michael Weiss M.D. Free Text Obj Notes Free Text Obj Notes: GEN: Pleasant elderly female, in no immediate di stress HEENT: Atraumatic, normocephalic, moist mucous m embranes NECK: Supple, good range of motion, no tendernes s LUNGS: Symmetrical air entry, no acute respirato ry distress CV: RRR, S1/S2, no murmurs, rubs or gallops GI: Abdomen is soft, not tender or distended EXT/Musc: No edema or cyanosis. Pedal pulses pre sent Skin: Left groin soft, no hematoma, bruising NEURO: Awake, alert and oriented x3. No facial d lizette or focal deficit Treatment Prophylaxis Treatment Prophylaxis Oxygen: room air CVC/PICC documentation: The data below has been imported from nursing do cumentation. Any exceptions have been noted below under Provider comments. 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 CTA LLE -with pseudoaneurysm without extravasati on. S/p Bedside percutaneous US guided thrombin injection in the left common femoral artery pseudoaneurysm on 01/[address] dotson. Hgb 6.1 today, will receive 2 units PRBC; obtain posttransfusion CBC Neuro: No acute issues Respiratory: Saturation stable on room air, anuj tor CV: Hemodynamically stable, cardioprotective med s, DAPT, statin, beta-vicky GI: Tolerating diet, continue MiraLAX, last BM Nephr: Slight trend on serum creatinine, 1.3, gi ve 500ml NS bolus x1, monitor UOP Replete electrolytes as needed Heme: Hemoglobin 6.1 today, will receive 2 units PRBCs, obtained post transfusion CBC. Endo: Euglycemic, on daily levothyroxine, monito r with labs ID: Patient afebrile, monitor with cbc and fever curve No Indication for PPI VTE: Right lower extremity SCD Disposition: Continue to monitor in ICU I spent 33 minutes of critic al care reviewing labs, imaging and discussing plan of care with tooth cutter spur, multidisciplinary team . Consultants: cardiology, cardiovascular surgery, colorectal surgery Code status: full code Plan discussed with: patient, family, nurse, int erdisc care team, pharmacy/ pharmacist at 1245 RPT #:[id number] END OF REPORT 2022-01-17 09:36:00-00:00 [facility] Cardiology Progress Note REPORT#:[id number] REPORT STATUS: Signed DATE:01/17/22 TIME: 09 PATIENT: FALGUNI AGARWAL UNIT #: [id number] ROOM/BED: [place] [address] : 39 AGE: 81 SEX: F ATTEND: Kimo Gill MD ADM AUTHOR: Alexis Manriquez NP * ALL edits or amendments must be made on the [employer]/computer document * Subjective Chief complaint: Doing ok. Patient reports: No: chest pain, palpitations, shortness of breat h. Nursing reports: No: complaints. Comments: Pt is on RA,mild sob note. Family is at bedside. RN reports pt rec'd 1 unit PRBCs this am. Objective General VS/I O: 24 hour I O ending at 0700: 01/16 1900 01/17 0700 Intake Total 400 120 Output Total 550 658 Balance -150 -538 Intake, Oral 400 120 Output, 8 Drainage Output, Urine 550 650 Patient 49.8 kg Weight Weight Bed scale Measurement Method Vital Signs: Date Time Temp Pulse Resp B/P B/P Pulse O2 O2 F low FiO2 Mean Ox Delivery Rate /15 0800 Nasal 2 cannula /15 0716 98.5 80 18 160/70 100 08/15 0714 98.3 84 18 160/70 100 08/15 0645 97.9 80 18 140/65 100 08/15 0625 80 43 144/65 93 100 08/15 0615 82 58 131/70 98 98 08/15 0614 97.6 80 16 141/63 100 08/15 0600 78 29 149/63 90 100 08/15 0545 87 35 140/64 92 99 08/15 0537 97.9 82 16 153/66 100 08/15 0525 84 25 151/71 102 97 08/15 0515 82 32 143/65 94 99 08/15 0508 98.3 81 24 140/63 100 08/15 0500 82 23 140/63 91 100 08/15 0430 79 28 129/63 90 100 08/15 0400 98.3 Room air 08/15 0400 79 23 113/55 79 100 08/15 0330 80 48 110/55 79 100 08/15 0300 80 34 113/65 84 100 08/15 0230 79 53 111/56 80 100 08/15 0200 76 56 106/53 77 100 08/15 0130 79 53 103/54 76 98 08/15 0100 82 33 107/52 75 98 08/15 0030 91 40 110/55 79 99 08/15 0012 98.7 08/15 0000 97 27 106/53 76 99 08/14 2330 102 30 114/55 79 99 08/14 2300 99 36 125/58 83 98 08/14 2230 102 23 123/59 85 99 08/14 2200 100 51 105/53 75 100 08/14 2130 103 33 132/60 86 100 08/14 2100 104 24 121/58 84 100 08/14 2030 106 33 112/54 78 100 08/14 2022 98.0 08/14 1999 105 26 140/65 93 100 08/14 1901 114 40 127/68 92 100 08/14 1730 109 48 138/65 93 99 08/14 1700 98 51 134/63 90 97 01/16 1630 98 41 132/62 89 93 01/16 1600 97.9 01/16 1600 101 60 137/60 87 100 01/16 1530 104 36 119/56 81 100 01/16 1500 103 28 127/60 86 99 01/16 1430 96 24 137/60 91 100 01/16 1401 98 35 141/67 97 100 01/16 1400 96 38 98 01/16 1353 114 32 91/56 68 100 01/16 1334 98 20 139/64 92 100 PATIENT WEIGHT: Weight (lb): 109 Weight (oz): 12.64 Weight (kg): 49.800 Medications: Active Meds + DC'd Last 24 Hrs Magnesium Sulfate (MAGNESIUM SULFATE 2GM/SWFI 50 ML) 50 ML ONCE ONE IV ( DC) Sodium Chloride (SODIUM CHLORIDE 0.9%) 500 ML REINA JOSE M ONCE ONE IV (DC) Calcium Gluconate/Sodium Chloride (Calcium Gluco carmen 2 GM/NS 100 mL) 100 ML ONCE ONE IV (DC) Acetaminophen (TYLENOL) 650 MG ONCE ONE PO (DC) Sodium Chloride (SODIUM CHLORIDE) 10 ML ASDIR IV Aspirin (ASPIRIN) 81 MG DAILY PO Clopidogrel Bisulfate (Plavix) 75 MG DAILY PO Docusate Sodium (COLACE) 100 MG BID PO Losartan Potassium (COZAAR) 25 MG DAILY PO Metoprolol Tartrate (LOPRESSOR) 50 MG BID PO Polyethylene Glycol (MIRALAX) 17 GM DAILY PO Levothyroxine Sodium (Synthroid) 50 MCG DAILY 06 00 PO Sodium Chloride (SODIUM CHLORIDE 0.9%) 250 ML ON CE ONE IV Atorvastatin Calcium (LIPITOR) 40 MG BEDTIME PO Mupirocin (BACTROBAN 2% 22 GM OINTMENT) 1 APPLIC BID NASAL (DC) Topiramate (TOPAMAX) 25 MG BID PO Status post: 01/16 Lt Pseudoaneurysm. 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 Diagnosis, Assessment Plan Consultants: cardiology, cardiovascular surgery, colorectal surgery Plan discussed with: patient, family, nurse Free Text DxA P Notes Free Text DxA P Notes: Mrs. Agarwal is an 81 y/o F w/ PMHx: HTN, CAD s/p RCA x 3 stents in December 2021, OA, CKD stage III, Lung can on remission present s to [facility] for elective LHC. 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 Her left femoral site intermittent hematoma and RN has be en holding pressure intermittent. Currently, SBP 110's w/ IVF going. Dr. Weaver is at bedside. Telemetry shows nsr. Patient denied chest discom fort, no sob, no palpitation. Daughter reports pt had UTI and Covid last week which she completed the treatment. - CAD s/p LHC. Per vascular LAD 60% stenosis. S/P right groin hematoma removal. On Plavix, ASA, BB and statins. - HTN. BP controlled. On Losartan, Metoprolol. EF 55-60% w/ grade 1 DD. - OA. - CKD stage III. Per IM. - Anemia s/p transfusion. RR improving after applying 2LNC. Electronically Signed by Alexis Manriquez NP on at 1339 RPT #:[id number] END OF REPORT 2022-01-17 09:36:00-00:00 [facility]#:[id number] report status: signed date:01/17/22 time: 935 patient: falguni agarwal unit #: [id number] room/bed: [place] [address] : 39 age: 81 sex: f attend: kimo gill md adm dt: 01/13/22 author: alexis manriquez np * all edits or amendments must be made on the [employer]/computer document * subjective chief complaint: doing ok. patient reports: no: chest pain, palpitations, shortness of breat h. nursing reports: no: complaints. comments: pt is on ra,mild sob note. family is at bedside. rn reports pt rec'd 1 unit prbcs this am. objective general vs/i o: 24 hour i o ending at 0700: 01/16 1900 01/17 0700 intake total 400 120 output total 550 658 balance -150 -538 intake, oral 400 120 output, 8 drainage output, urine 550 650 patient 49.8 kg weight weight bed scale measurement method vital signs: date time temp pulse resp b/p b/p pulse o2 o2 f low fio2 mean ox delivery rate 01/17 0800 nasal 2 cannula 01/17 0716 98.5 80 18 160/70 100 08/15 0714 98.3 84 18 160/70 100 08/15 0645 97.9 80 18 140/65 100 08/15 0625 80 43 144/65 93 100 08/15 0615 82 58 131/70 98 98 08/15 0614 97.6 80 16 141/63 100 08/15 0600 78 29 149/63 90 100 08/15 0545 87 35 140/64 92 99 08/15 0537 97.9 82 16 153/66 100 08/15 0525 84 25 151/71 102 97 08/15 0515 82 32 143/65 94 99 08/15 0508 98.3 81 24 140/63 100 08/15 0500 82 23 140/63 91 100 08/15 0430 79 28 129/63 90 100 08/15 0400 98.3 room air 08/15 0400 79 23 113/55 79 100 08/15 0330 80 48 110/55 79 100 08/15 0300 80 34 113/65 84 100 08/15 0230 79 53 111/56 80 100 08/15 0200 76 56 106/53 77 100 08/15 0130 79 53 103/54 76 98 08/15 0100 82 33 107/52 75 98 08/15 0030 91 40 110/55 79 99 08/15 0012 98.7 08/15 0000 97 27 106/53 76 99 08/14 2330 102 30 114/55 79 99 08/14 2300 99 36 125/58 83 98 08/14 2230 102 23 123/59 85 99 08/14 2200 100 51 105/53 75 100 08/14 2130 103 33 132/60 86 100 / 2100 104 24 121/58 84 100 01/16 2030 106 33 112/54 78 100 01/162 98.0 01/16 2000 105 26 140/65 93 100 /14 1901 114 40 127/68 92 100 /14 1730 109 48 138/65 93 99 /14 1700 98 51 134/63 90 97 /14 1630 98 41 132/62 89 93 /14 1600 97.9 01/16 1600 101 60 137/60 87 100 /14 1530 104 36 119/56 81 100 /14 1500 103 28 127/60 86 99 08/14 1430 96 24 137/60 91 100 01/16 1401 98 35 141/67 97 100 / 1400 96 38 98 /14 1353 114 32 91/56 68 100 / 1334 98 20 139/64 92 100 patient weight: weight (lb): 109 weight (oz): 12.64 weight (kg): 49.800 medications: active meds + dc'd last 24 hrs magnesium sulfate (magnesium sulfate 2gm/swfi 50 ml) 50 ml once one iv ( dc) sodium chloride (sodium chloride 0.9%) 500 ml reina jose m once one iv (dc) calcium gluconate/sodium chloride (calcium gluco carmen 2 gm/ns 100 ml) 100 ml once one iv (dc) acetaminophen (tylenol) 650 mg once one po (dc) sodium chloride (sodium chloride) 10 ml asdir iv aspirin (aspirin) 81 mg daily po clopidogrel bisulfate (plavix) 75 mg daily po docusate sodium (colace) 100 mg bid po losartan potassium (cozaar) 25 mg daily po metoprolol tartrate (lopressor) 50 mg bid po polyethylene glycol (miralax) 17 gm daily po levothyroxine sodium (synthroid) 50 mcg daily 06 00 po sodium chloride (sodium chloride 0.9%) 250 ml on ce one iv atorvastatin calcium (lipitor) 40 mg bedtime po mupirocin (bactroban 2% 22 gm ointment) 1 applic bid nasal (dc) topiramate (topamax) 25 mg bid po status post: 01/16 lt pseudoaneurysm. physical exam general appearance: frail, a lert, awake, oriented, no acute distress, pleasant, conversational, mental status normal, no respira tory distress head/eyes: atraumatic ent: moist mucosal membranes neck: full range of motion, no jvd cardiovascular: cv assessment: regular rate and rhythm respiratory: shortness of breath (mild distress) abdomen: soft, normal bowel sounds genitourinary: avilez, urine upper extremity: ue assessment: normal temperature lower extremity: le assessment: no edema neuro/software support representative: alert, oriented x 3, normal speech wound/incision: location: left femoral groin site w/ hematoma and zack drain . diagnosis, assessment plan consultants: cardiology, cardiovascular surgery, colorectal surgery plan discussed with: patient, family, nurse free text dxa p notes free text dxa p notes: mrs. agarwal is an 81 y/o f w/ pmhx: htn, cad s/p rca x 3 stents in december 2021, oa, ckd stage iii, lung can on remission present s to [facility] for elective lhc. 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 her left femoral site intermittent hematoma and rn has be en holding pressure intermittent. currently, sbp 110's w/ ivf going. dr. weaver is at bedside. telemetry shows nsr. patient denied chest discom fort, no sob, no palpitation. daughter reports pt had uti and covid last week which she completed the treatment. - cad s/p lhc. per vascular lad 60% stenosis. s/p right groin hematoma removal. on plavix, asa, bb and statins. - htn. bp controlled. on losartan, metoprolol. ef 55-60% w/ grade 1 dd. - oa. - ckd stage iii. per im. - anemia s/p transfusion. rr improving after applying 2lnc. electronically signed by alexis manriquez np on at 1339 electronically signed by lane corbin md on at 4672 rpt #:[id number] end of report 2022-01-16 14:19:00-00:00 [facility] Brief Op Note REPORT#:[id number] REPORT STATUS: Signed DATE:01/16/22 TIME: 1419 PATIENT: FALGUNI AGARWAL UNIT #: [id number] ROOM/BED: [place] [address] : 39 AGE: 81 SEX: F ATTEND: Kimo Gill MD ADM AUTHOR: Jerry Dotson MD * ALL edits or amendments must be made on the [employer] document * Op/Inv Proc Note - Brief Pre-procedure diagnosis: Left Femoral artery pseudoaneurysm Post-procedure diagnosis: same as pre procedure dx Procedures performed: Bedside percutaneous ultrasound guided thrombin injection in the left common femoral artery pseudoaneurysm 495[address] Primary Surgeon: Dr. Jerry Dotson Third Mate(s): none Anesthesia: local anesthesia Findings: Adequate neck noted on review of CTA and ultraso und. Complete thrombosis of pseudoaneurysm after injection. No indicateion o f embolus with patent superficial femoral artery outflow on duplex. Detailed description: Patient prepped and draped sterilly and Ultrasou nd evaluation completed at bedside evaluating flow in and out of psudoaneur ysm and the anatomy of the pseudoaneurysm. Thrombin was injected with ultra sound guidance with longtitudinal visulaization of the needle in the sac and visualizaiton of thrombin formation and eventual sac thrombosis. Patient tolerated well without complication. Complications: none Estimated blood loss in ml's: none Specimens removed/altered: none at 1426 RPT #:[id number] END OF REPORT 2022-01-16 14:13:00-00:00 [facility] Vascular Surgery Progress Note REPORT#:[id number] REPORT STATUS: Signed DATE:01/16/22 TIME: 1413 PATIENT: FALGUNI AGARWAL UNIT #: [id number] ROOM/BED: [place] [address] : 39 AGE: 81 SEX: F ATTEND: Kimo Gill MD ADM AUTHOR: Jerry Dotson MD * ALL edits or amendments must be made on the [employer] document * Subjective Chief complaint: CAD, left groin hematoma HPI 81 years old female s/p left groin hemorrhage re pair. THis AM, increased swelling was noted. I obtained a CTA demonstrati ng a pseudoaneurysm without extravasation. Distal outflow patent. Review of Systems Constitutional: Denies: fatigue, fever, generalized weakness, le thargy. Respiratory: Denies: SOB, wheezing. Cardiovascular: Denies: chest pain, SHAH (dyspnea on exertion), e pina, orthopnea. GI: Denies: abdominal pain, nausea, vomiting. : Denies: dysuria, flank pain, frequency. Neuro: Denies: dizziness, headache, syncope. Objective General VS/I O: Last Documented: Result Date Time Pulse Ox 100 01/16 1000 B/P 123/62 01/16 1000 B/P Mean 86 01/16 1000 Pulse 87 01/16 1000 Resp 43 01/16 1000 Temp 97.9 01/16 0800 O2 Delivery Room air 01/16 0400 O2 Flow Rate 3 01/15 2000 FiO2 21 01/13 0922 24 hour I O ending at 0700: 01/16 0700 01/15 1900 Intake Total 120 1800.00 Output Total 610 725 Balance -490 1075.00 Intake, IV 450.00 Intake, Oral 120 Intake, Oral 1000 Supplement Intake, 350 Packed Cells Number 1 Bowel Movements Output, 10 25 Drainage Output, Urine 600 700 Patient 52.1 kg Weight Weight Bed scale Measurement Method PATIENT WEIGHT: Weight (lb): 114 Weight (oz): 13.77 Weight (kg): 52.100 Physical Exam General appearance: alert, awake, oriented, no a cute distress Head/Eyes: atraumatic, normal conjunctiva/sclera , normal eyelids/periorb., normocephalic Neck: full range of motion, normal thyroid, no J VD Cardiovascular: normal heart sounds, regular rat e rhythm Respiratory: aerating well, symmetrical chest ri se Abdomen: non-tender, soft, no distention Extremities: moves all, no calf tenderness, no e pina (left groin hematoma ) 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40 mg/dL) 2.15 Laboratory Tests 01/16 0510 Hematology WBC (4.5 - 11.0 x10 3/uL) 10.9 RBC (3.54 - 5.02 x10 6/uL) 2.36 L Hgb (11.0 - 15.0 g/dL) 7.3 L Hct (33.0 - 45.0 %) 22.5 L MCV (81.0 - 99.0 fL) 95.3 MCH (27.0 - 33.0 pg) 30.9 MCHC (33.0 - 37.0 g/dL) 32.4 L RDW (11.5 - 14.5 %) 15.7 H Plt Count (150 - 400 x10 3/uL) 239 MPV (7.0 - 9.0 fL) 11.5 H Neut % (Auto) (56.0 - 77.0 %) 66.5 Lymph % (Auto) (14.0 - 32.0 %) 15.9 Falls % (Auto) (4.8 - 9.0 %) 9.7 H Eos % (Auto) (0.3 - 3.7 %) 6.8 H Baso % (Auto) (0.0 - 2.0 %) 0.7 Neut # (Auto) (2.0 - 7.6 x10 3/uL) 7.22 Lymph # (Auto) (1.0 - 3.8 x10 3/uL) 1.73 Falls # (Auto) (0.1 - 0.8 x10 3/uL) 1.05 H Eos # (Auto) (0.0 - 0.2 x10 3/uL) 0.74 H Baso # (Auto) (0.0 - 0.2 x10 3/uL) 0.08 Abs Immat Gran (auto) (0.00 - 0.03 x10 3/uL) 0. 04 H Add Manual Diff NO Immature Gran % (0.0 - 2.0 %) 0.4 Nucleated RBC % (0 - 0 %) 0.0 Nucleated RBCs # (Man) (0.0 - 0.1 x10 3/uL) 0.0 0 Radiology data: Recent Impressions: RADIOLOGY - XR CHEST 1 V 01/15 1914 Report Impression - Status: SIGNED Entered: 01/15/20222055 IMPRESSION: 1. There is a stable small left pleural effusion . 2. Previous left pulmonary airspace disease is n ear completely resolved with minimal reticular density remainin g. Impression By: [email or web address] - Jose Knight D.O. CAT SCAN - CT LOWER EXTRM W/CON LT 01/16 0859 Report Impression - Status: SIGNED Entered: 01/16/2022 1019 IMPRESSION: 1. Decreased size and near resolution of previou sly described hematoma in the superficial soft tissues of the medial aspect of the proximal thigh with drain in place. 2. New nonspecific enlargement and edema within the left adductor muscles. 3. Slight increased size of possible pseudoaneur ysm near the common femoral artery bifurcation. Impression By: [email or web address] - Faisal Thomason M.D. Diagnosis, Assessment Plan Free Text A P: Patient with left groin pseudoaneurysm. Consider ing the patients age and comorbidities, will plan thrombin injection for psudoaneurysm. Continue ICU care. Bed rest. Consultants: cardiology, cardiovascular surgery, colorectal surgery at 1419 RPT #:[id number] END OF REPORT 2022-01-16 13:54:00-00:00 [facility] Hospitalist Progress Note REPORT#:[id number] REPORT STATUS: Signed DATE:01/16/22 TIME: 1354 PATIENT: FALGUNI AGARWAL UNIT #: [id number] ROOM/BED: [place] [address] : 39 AGE: 81 SEX: F ATTEND: Kimo Gill MD ADM AUTHOR: Rosa Oscar MD * ALL edits or amendments must be made on the [employer]/computer document * Subjective Chief complaint: she feel well HPI: 81 years old female with PMH CAD with stents , C KD3 , Hx of lung cancer had elective cath yesterday . she developed hematoma on the left femoral site and hypotension . she was given blood transfusion . vascular surgeon was consulted . she had repair sugery yesterday . she was admitt ed to the CCU . now she feel well . no cp no sob no dizziness no nausea no vo miting Review of Systems Constitutional: Denies: fatigue, fever, generalized weakness, le thargy. Respiratory: Denies: SOB, wheezing. Cardiovascular: Denies: chest pain, SHAH (dyspnea on exertion), e pina, orthopnea. GI: Denies: abdominal pain, nausea, vomiting. : Denies: dysuria, flank pain, frequency. Neuro: Denies: dizziness, headache, syncope. Objective General VS/I O: Vital Signs: Date Time Temp Pulse Resp B/P B/P Pulse O2 O2 Flow FiO2 Mean Ox Delivery Rate 01/16 1000 87 43 123/62 86 100 01/16 0930 88 31 131/63 90 98 01/16 0918 86 25 130/61 88 97 01/16 0912 84 27 88/58 67 95 01/16 0801 75 23 92/54 66 98 01/16 0800 36.6 01/16 0700 70 21 161/88 121 99 01/16 0606 68 23 166/75 108 99 01/16 0500 75 23 142/69 99 99 01/16 0400 36.8 Room air 01/16 0400 65 17 146/65 94 97 01/16 0304 77 44 120/58 83 98 01/16 0200 68 18 127/60 87 96 01/16 0103 77 46 160/74 107 98 01/16 0100 77 33 171/79 114 98 01/16 0000 36.9 Room air 01/16 0000 74 21 143/64 92 97 01/15 2300 74 23 163/71 102 97 01/15 2200 85 58 149/67 97 96 01/15 2125 82 33 157/72 103 98 01/15 2100 83 46 164/77 110 100 01/16 2000 36.8 Nasal 3 cannula 01/16 2000 86 51 163/83 117 100 01/15 1930 Nasal 3 cannula 01/15 1900 88 53 162/73 105 99 01/15 1824 93 39 171/76 109 01/15 1800 89 25 170/75 108 100 01/15 1735 89 21 155/115 129 01/15 1700 81 20 164/70 101 100 01/15 1636 80 43 182/81 117 100 01/15 1600 36.8 71 35 179/77 111 100 Nasal 2 cannula 01/15 1600 79 45 179/77 111 100 01/15 1500 76 27 167/73 105 100 01/15 1400 69 41 136/65 94 100 24 hour I O ending at 0700: 01/16 0700 01/15 1900 Intake Total 120 1800.00 Output Total 610 725 Balance -490 1075.00 Intake, IV 450.00 Intake, Oral 120 Intake, Oral 1000 Supplement Intake, 350 Packed Cells Number 1 Bowel Movements Output, 10 25 Drainage Output, Urine 600 700 Patient 52.1 kg Weight Weight Bed scale Measurement Method PATIENT WEIGHT: Weight (lb): 114 Weight (oz): 13.77 Weight (kg): 52.100 Medications: Active Meds + DC'd Last 24 Hrs Lidocaine HCl (LIDOCAINE HCL/PF) 30 ML ONCE ONE LOCAL (DC) Thrombin (RECOTHROM) 5,000 UNITS ONCE ONE TOPICA L (DC) Iopamidol (ISOVUE-300 100ML) 100 ML .STK-MED ONE IV (DC) Acetaminophen (TYLENOL) 650 MG ONCE ONE PO (DC) Sodium Chloride (SODIUM CHLORIDE) 10 ML ASDIR IV Aspirin (ASPIRIN) 81 MG DAILY PO Clopidogrel Bisulfate (Plavix) 75 MG DAILY PO Docusate Sodium (COLACE) 100 MG BID PO Losartan Potassium (COZAAR) 25 MG DAILY PO Metoprolol Tartrate (LOPRESSOR) 50 MG BID PO Polyethylene Glycol (MIRALAX) 17 GM DAILY PO Levothyroxine Sodium (Synthroid) 50 MCG DAILY 06 00 PO Sodium Chloride (SODIUM CHLORIDE 0.9%) 250 ML ON CE ONE IV Atorvastatin Calcium (LIPITOR) 40 MG BEDTIME PO Mupirocin (BACTROBAN 2% 22 GM OINTMENT) 1 APPLIC BID NASAL Topiramate (TOPAMAX) 25 MG BID PO Physical Exam General appearance: alert, awake, oriented, no a cute distress Head/Eyes: atraumatic, normal conjunctiva/sclera , normal eyelids/periorb., normocephalic Neck: full range of motion, normal thyroid, no J VD Cardiovascular: normal heart sounds, regular rat e rhythm Respiratory: aerating well, clear to auscultatio n Abdomen: non-tender, normal bowel sounds, soft, no distention Extremities: moves all, no calf tenderness, no e pina (left groin hematoma ) 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40 mg/dL) 2.15 Laboratory Tests 01/16 0510 Hematology WBC (4.5 - 11.0 x10 3/uL) 10.9 RBC (3.54 - 5.02 x10 6/uL) 2.36 L Hgb (11.0 - 15.0 g/dL) 7.3 L Hct (33.0 - 45.0 %) 22.5 L MCV (81.0 - 99.0 fL) 95.3 MCH (27.0 - 33.0 pg) 30.9 MCHC (33.0 - 37.0 g/dL) 32.4 L RDW (11.5 - 14.5 %) 15.7 H Plt Count (150 - 400 x10 3/uL) 239 MPV (7.0 - 9.0 fL) 11.5 H Neut % (Auto) (56.0 - 77.0 %) 66.5 Lymph % (Auto) (14.0 - 32.0 %) 15.9 Falls % (Auto) (4.8 - 9.0 %) 9.7 H Eos % (Auto) (0.3 - 3.7 %) 6.8 H Baso % (Auto) (0.0 - 2.0 %) 0.7 Neut # (Auto) (2.0 - 7.6 x10 3/uL) 7.22 Lymph # (Auto) (1.0 - 3.8 x10 3/uL) 1.73 Falls # (Auto) (0.1 - 0.8 x10 3/uL) 1.05 H Eos # (Auto) (0.0 - 0.2 x10 3/uL) 0.74 H Baso # (Auto) (0.0 - 0.2 x10 3/uL) 0.08 Abs Immat Gran (auto) (0.00 - 0.03 x10 3/uL) 0. 04 H Add Manual Diff NO Immature Gran % (0.0 - 2.0 %) 0.4 Nucleated RBC % (0 - 0 %) 0.0 Nucleated RBCs # (Man) (0.0 - 0.1 x10 3/uL) 0.0 0 Radiology data: Recent Impressions: RADIOLOGY - XR CHEST 1 V 01/15 1914 Report Impression - Status: SIGNED Entered: 01/15/20222055 IMPRESSION: 1. There is a stable small left pleural effusion . 2. Previous left pulmonary airspace disease is n ear completely resolved with minimal reticular density remainin g. Impression By: [email or web address] - Jose Knight D.O. CAT SCAN - CT LOWER EXTRM W/CON LT 01/16 0859 Report Impression - Status: SIGNED Entered: 01/16/2022 1019 IMPRESSION: 1. Decreased size and near resolution of previou sly described hematoma in the superficial soft tissues of the medial aspect of the proximal thigh with drain in place. 2. New nonspecific enlargement and edema within the left adductor muscles. 3. Slight increased size of possible pseudoaneur ysm near the common femoral artery bifurcation. Impression By: [email or web address] - Faisal Thomason M.D. Diagnosis, Assessment Plan Consultants: cardiology, cardiovascular surgery, colorectal surgery Free Text DxA P Notes Free text DxA P notes: hemorrhage from left femoral artery anemia due to acute blood loss acute respiratory failure --post procedure CAD CKD3 HTN hypothyroid hemorrhage from left femoral artery anemia due to acute blood loss vascular surgeon consult -- repair artery --yes ter monitor in CCU transfuse 2 units RBBC monitor H H -- transfuse if < 7 respiratory failure post procedure -- now resolve extubated in the CCU CAD with stents cardiology consult ASA/plavix as cardiology CKD-- stable HTN-- continue cozaar and metoprolol stable hypothyroid-- continue home med 01/14- she complaint of headache -- no cp no sob -- she is hemodynamic stable -- H H -- stable -- after 2 units blood transfu stephanie -- continue monitor in CCU 01/15- she is stable no new event -- H H -- stable -post transfusion -- continue monitor in CCU 01/16-- she feel well -- CT of lower extremity 1. Decreased size and near resolution of previo usly described hematoma in the superficial soft tissues of the medial aspect of the proximal thigh with drain in place. 2. New nonspecific enlargement and edema within the left adductor muscles. 3. Slight increased size of possible pseudoaneur ysm near the common femoral artery bifurcation. -- manage as vascular surgeon -- monitor H H --7.6 Quality: Gen Med Crit Care Current Medications Current medication review: Current Medications Sig/Brandi Start time Last Medication Dose Route Stop Time Status Admin Calcium Gluconate/ 50 ML ONCE ONE 01/13 1115 DC 01/13 Sodium Chloride IV 01/13 1124 1204 Aspirin 81 MG DAILY 01/13 900 AC 01/13 PO 02/12 0859 0829 Clopidogrel Bisulfate 75 MG DAILY 01/13 900 AC 01/13 PO 02/12 0859 0828 Docusate Sodium 100 MG BID 01/13 900 AC 01/13 PO 02/12 0859 0829 Losartan Potassium 25 MG DAILY 01/13 900 AC PO 02/12 0859 0829 Metoprolol Tartrate 50 MG BID 01/13 900 AC PO 02/11 1544 0829 Polyethylene Glycol 17 GM DAILY 01/13 900 AC 0 01/13 PO 02/12 0859 0828 Levothyroxine Sodium 50 MCG DAILY 0600 01/13 0 600 AC 01/13 PO 02/12 0559 0828 Calcium Gluconate/ 100 ML ONCE ONE 01/13 0530 D C 01/13 Sodium Chloride IV 01/13 0549 0622 Magnesium Sulfate 100 ML ONCE ONE 01/13 0530 DC 01/13 IV 01/13 0929 0622 Sodium Bicarbonate 50 MEQ ONCE ONE 01/13 0530 D C 01/13 IV 01/13 0531 0621 Albumin Human 250 ML Q1H 01/12 2230 DC 01/13 IV 01/12 2359 0058 Sodium Chloride 250 ML ONCE ONE 01/12 2215 AC 0 01/13 IV 01/23 0814 0043 Fentanyl Citrate 50 MCG ONCE ONE 01/12 2145 DC 01/12 IV 01/12 2146 2151 Fentanyl Citrate 50 MCG ONCE ONE 01/12 2115 DC IV 01/13 2116 Fentanyl Citrate 0 .STK-MED ONE 01/12 2107 DC 0 01/12 IV 2112 Atorvastatin Calcium 40 MG BEDTIME 01/12 2100 A C PO 02/11 2059 Mupirocin 1 APPLIC BID 01/12 2100 AC 01/13 NASAL 01/17 0901 0829 Topiramate 25 MG BID 01/12 2100 AC 01/13 PO 02/11 2059 0829 Glycopyrrolate 0 .STK-MED ONE 01/12 193 DC .ROUTE Neostigmine 0 .STK-MED ONE 01/12 193 DC Methylsulfate .ROUTE Cefazolin Sodium 0 .STK-MED ONE 01/12 184 DC .ROUTE Heparin Sodium 0 .STK-MED ONE 01/12 184 DC .ROUTE Fentanyl Citrate 0 .STK-MED ONE 01/12 1820 DC .ROUTE Etomidate 0 .STK-MED ONE 01/12 181 DC IV Propofol 20 ML .STK-MED ONE 01/12 181 DC IV Rocuronium Rex 0 .STK-MED ONE 01/12 181 DC IV Succinylcholine 0 .STK-MED ONE 01/12 181 DC Chloride IV Iopamidol 100 ML .STK-MED ONE 01/12 1759 DC IV 01/12 1800 1759 Heparin Sodium 0 .STK-MED ONE 01/12 174 DC .ROUTE Thrombin 0 .STK-MED ONE 01/12 174 DC TOPICAL Tramadol HCl 50 MG Q6H PRN PRN 01/12 1430 DC PO 01/17 1429 Atropine Sulfate 0.5 MG ASDIR PRN 01/12 1330 DC 01/12 IV 01/13 1324 1653 Sodium Chloride 1,000 ML .[id number] 01/12 1330 DC IV 01/13 0249 Sodium Chloride 500 ML ASDIR PRN 01/12 1330 DC IV 01/13 1324 Home Medications: CLOPIDOGREL (PLAVIX) 75 MG PO DAILY TOPIRAMATE (TOPAMAX) 25 MG PO BID OMEPRAZOLE ER 20 MG PO DAILY METOPROLOL TARTRATE (LOPRESSOR) 50 MG PO BID LOSARTAN (COZAAR) 25 MG PO DAILY [PROLIA] 60 MG SUBQ EVERY 6 MOS traMADol (ULTRAM) 50 MG PO Q6H PRN PRN ACUTE AMADOU N ASPIRIN 81 MG PO DAILY LEVOTHYROXINE (SYNTHROID) 50 MCG PO DAILY ATORVASTATIN (LIPITOR) 40 MG PO BEDTIME I attest that the foregoing medication list in [facility] medical record is true, accurate, and complete to the best of my knowled ge. Electronically Signed by Rosa Oscar MD on 2 at 1358 RPT #:[id number] END OF REPORT 2022-01-16 12:18:00-00:00 [facility] REPORT#:[id number] REPORT STATUS: Signed DATE:01/16/22 TIME: 1218 PATIENT: FALGUNI AGARWAL UNIT #: [id number] ROOM/BED: [place] [address] : 39 AGE: 81 SEX: F ATTEND: Kimo Gill MD ADM AUTHOR: Esteban Alcaraz MD * ALL edits or amendments must be made on the [employer]/computer document * Subjective Chief complaint: No change HPI: Mrs. Agarwal is an 81 y/o F w/ PMHx: HTN, CAD s/p RCA x 3 stents in December 2021, OA, CKD stage III, Lung can on remission present s to [facility] for elective LHC. 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 Her left femoral site intermittent hematoma and RN has be en holding pressure intermittent. Currently, SBP 110's w/ IVF going. Dr. Weaver is at bedside. Telemetry shows nsr. Patient denied chest discom fort, no sob, no palpitation. Daughter reports pt had UTI and Covid last week which she completed the treatment. Objective General VS/I O: 24 hour I O ending at 0700: 01/16 0700 01/15 1900 Intake Total 120 1800.00 Output Total 610 725 Balance -490 1075.00 Intake, IV 450.00 Intake, Oral 120 Intake, Oral 1000 Supplement Intake, 350 Packed Cells Number 1 Bowel Movements Output, 10 25 Drainage Output, Urine 600 700 Patient 52.1 kg Weight Weight Bed scale Measurement Method Vital Signs: Date Time Temp Pulse Resp B/P B/P Pulse O2 O2 F low FiO2 Mean Ox Delivery Rate 01/16 1730 109 48 138/65 93 99 08/14 1700 98 51 134/63 90 97 08/14 1630 98 41 132/62 89 93 08/14 1600 97.9 /14 1600 101 60 137/60 87 100 08/14 1530 104 36 119/56 81 100 08/14 1500 103 28 127/60 86 99 08/14 1430 96 24 137/60 91 100 08/14 1401 98 35 141/67 97 100 08/14 1400 96 38 98 08/14 1353 114 32 91/56 68 100 08/14 1334 98 20 139/64 92 100 08/14 1330 101 27 100 08/14 1300 100 31 135/64 89 100 08/14 1230 90 25 152/66 95 100 08/14 1200 97 49 137/63 90 100 08/14 1130 92 33 120/61 84 100 08/14 1100 92 31 120/57 82 100 08/14 1030 87 25 128/63 89 100 08/14 1000 87 43 123/62 86 100 08/14 0930 88 31 131/63 90 98 08/14 0918 86 25 130/61 88 97 08/14 0912 84 27 88/58 67 95 08/14 0801 75 23 92/54 66 98 08/14 0800 97.9 08/14 0700 70 21 161/88 121 99 08/14 0606 68 23 166/75 108 99 08/14 0500 75 23 142/69 99 99 08/14 0400 98.3 Room air /14 0400 65 17 146/65 94 97 08/14 0304 77 44 120/58 83 98 01/16 0200 68 18 127/60 87 96 01/16 0103 77 46 160/74 107 98 01/16 0100 77 33 171/79 114 98 01/16 0000 98.5 Room air 01/16 0000 74 21 143/64 92 97 01/15 2300 74 23 163/71 102 97 01/15 2200 85 58 149/67 97 96 01/15 2125 82 33 157/72 103 98 01/15 2100 83 46 164/77 110 100 01/16 2000 98.3 Nasal 3 cannula 01/16 2000 86 51 163/83 117 100 PATIENT WEIGHT: Weight (lb): 114 Weight (oz): 13.77 Weight (kg): 52.100 Medications: Active Meds + DC'd Last 24 Hrs Lidocaine HCl (LIDOCAINE HCL/PF) 30 ML ONCE ONE LOCAL (DC) Thrombin (RECOTHROM) 5,000 UNITS ONCE ONE TOPICA L (DC) Iopamidol (ISOVUE-300 100ML) 100 ML .STK-MED ONE IV (DC) Acetaminophen (TYLENOL) 650 MG ONCE ONE PO (DC) Sodium Chloride (SODIUM CHLORIDE) 10 ML ASDIR IV Aspirin (ASPIRIN) 81 MG DAILY PO Clopidogrel Bisulfate (Plavix) 75 MG DAILY PO Docusate Sodium (COLACE) 100 MG BID PO Losartan Potassium (COZAAR) 25 MG DAILY PO Metoprolol Tartrate (LOPRESSOR) 50 MG BID PO Polyethylene Glycol (MIRALAX) 17 GM DAILY PO Levothyroxine Sodium (Synthroid) 50 MCG DAILY 06 00 PO Sodium Chloride (SODIUM CHLORIDE 0.9%) 250 ML ON CE ONE IV Atorvastatin Calcium (LIPITOR) 40 MG BEDTIME PO Mupirocin (BACTROBAN 2% 22 GM OINTMENT) 1 APPLIC BID NASAL Topiramate (TOPAMAX) 25 MG BID PO Physical Exam General appearance: alert, awake, oriented, no a cute distress Neck: full range of motion, non-tender, normal thyroid, supple/no meningismus, no bruit/NL carotids, no JVD, no lymphadenopathy , no masses or swelling Cardiovascular: CV assessment: regular rate and rhythm Respiratory: clear to auscultation, no distress Abdomen: non-tender, normal bowel sounds , no distention, no guarding, no mass/ organomegaly, no pulsatile mass, no rebound Lower extremity: LE assessment: no edema 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, oriented X 3, normal speech Results Findings/Data: Laboratory Tests 01/16 0510 Chemistry Sodium (134 - 147 mEq/L) 138 Potassium (3.4 - 5.0 mEq/L) 4.1 Chloride (100 - 108 mEq/L) 113 H Carbon Dioxide (21 - 33 mEq/l) 21 Anion Gap (0 - 20) 8 BUN (7 - 18 mg/dL) 17 Creatinine (0.6 - 1.3 mg/dL) 1.1 Glomerular Filtr Rate (70 - 80) 47.6 L Glucose (70 - 110 mg/dL) 100 Calcium (8.0 - 10.5 mg/dL) 8.1 Ionized Calcium Racquel (1.09 - 1.30 MMOL/L) 1.09 Phosphorus (2.5 - 4.9 MG/DL) 3.8 Magnesium (1.80 - 2.40 mg/dL) 2.15 Laboratory Tests 01/16 0510 Hematology WBC (4.5 - 11.0 x10 3/uL) 10.9 RBC (3.54 - 5.02 x10 6/uL) 2.36 L Hgb (11.0 - 15.0 g/dL) 7.3 L Hct (33.0 - 45.0 %) 22.5 L MCV (81.0 - 99.0 fL) 95.3 MCH (27.0 - 33.0 pg) 30.9 MCHC (33.0 - 37.0 g/dL) 32.4 L RDW (11.5 - 14.5 %) 15.7 H Plt Count (150 - 400 x10 3/uL) 239 MPV (7.0 - 9.0 fL) 11.5 H Neut % (Auto) (56.0 - 77.0 %) 66.5 Lymph % (Auto) (14.0 - 32.0 %) 15.9 Falls % (Auto) (4.8 - 9.0 %) 9.7 H Eos % (Auto) (0.3 - 3.7 %) 6.8 H Baso % (Auto) (0.0 - 2.0 %) 0.7 Neut # (Auto) (2.0 - 7.6 x10 3/uL) 7.22 Lymph # (Auto) (1.0 - 3.8 x10 3/uL) 1.73 Falls # (Auto) (0.1 - 0.8 x10 3/uL) 1.05 H Eos # (Auto) (0.0 - 0.2 x10 3/uL) 0.74 H Baso # (Auto) (0.0 - 0.2 x10 3/uL) 0.08 Abs Immat Gran (auto) (0.00 - 0.03 x10 3/uL) 0. 04 H Add Manual Diff NO Immature Gran % (0.0 - 2.0 %) 0.4 Nucleated RBC % (0 - 0 %) 0.0 Nucleated RBCs # (Man) (0.0 - 0.1 x10 3/uL) 0.0 0 Laboratory Tests 01/16 0510 Chemistry Magnesium (1.80 - 2.40 mg/dL) 2.15 Radiology data: Recent Impressions: CAT SCAN - CT LOWER EXTRM W/CON LT 01/16 0859 Report Impression - Status: SIGNED Entered: 01/16/2022 1019 IMPRESSION: 1. Decreased size and near resolution of previou sly described hematoma in the superficial soft tissues of the medial aspect of the proximal thigh with drain in place. 2. New nonspecific enlargement and edema within the left adductor muscles. 3. Slight increased size of possible pseudoaneur ysm near the common femoral artery bifurcation. Impression By: [email or web address] - Faisal Thomason M.D. ULTRASOUND - US GUIDANCE [facility] ACCESS 01/16 1414 Report Impression - Status: SIGNED Entered: 01/16/2022 1540 IMPRESSION: Images document successful complete thrombosis o f a left common femoral artery pseudoaneurysm following thrombin injection. Impression By: [email or web address] - Jose Knight D.O. Results: labs reviewed, vital signs reviewed Diagnosis, Assessment Plan Consultants: cardiology, cardiovascular surgery, colorectal surgery Free Text DxA P Notes Free Text DxA P Notes: Mrs. Agarwal is an 81 y/o F w/ PMHx: HTN, CAD s/p RCA x 3 stents in December 2021, OA, CKD stage III, Lung can on remission present s to [facility] for elective LHC. 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 Her left femoral site intermittent hematoma and RN has be en holding pressure intermittent. Currently, SBP 110's w/ IVF going. Dr. Weaver is at bedside. Telemetry shows nsr. Patient denied chest discom fort, no sob, no palpitation. Daughter reports pt had UTI and Covid last week which she completed the treatment. - CAD s/p LHC. LAD 60% stenosis. RCA stents are patent and D/W patient in detail S/P surgery for right groin hematoma and as per vascular surgery. Hb after a unit of PRBC today was 7.0 On Plavix, ASA, BB and statins. Will encourage to ambulate as tolerated and if improving then transfer to floor - HTN. BP controlled. On Losartan, Metoprolol. - OA. - CKD stage III. Per IM. 01/15/22: -ECHO: 1. Left ventricle: The cavity size is normal. Wa ll thickness is normal. Systolic function is normal. The estimated eject ion fraction is 55-60%. Wall motion is normal; there are no regional wall mot ion abnormalities. Doppler parameters are consistent with abnormal left elvis tricular relaxation (grade 1 diastolic dysfunction). 2. Right ventricle: Systolic pressure is at the upper limits of normal. 3. Left atrium: The atrium is dilated. The end-s ystolic volume index (2-plane Tejeda's) is 38 ml/m 2. 4. Mitral valve: The annulus is mildly c alcified. There is mild regurgitation. 5. Tricuspid valve: Estimated right vent ricle systolic pressure is 35.23 mmHg. There is mild-moderate regurgitation. 6. Pulmonic valve: There is trivial regurgitatio n. -HTN, CAD, H/O PCI RCA, OA, CKD stage 3: [facility] 01-03: AND CSI AND PCI RCA -S/P REPEAT [facility], 01-16-22, MOD LAD DS., NEGATIVE FFR, PATENT RCA STENT -FEMORAL SITE HEMATOMA: POST [facility] -S/P Emergent Left groin hemorrhage with evacuat ion of hematoma and repair of common femoral artery for hemorrhage -HB 7.8 -STABLE CARDIAC STATUS 01/16/22: -STABLE -H/H 7.3/22.5 -FOLLOW Electronically Signed by Esteban Alcaraz MD on 0 01/17/22 at 0913 [facility] #:[id number] END OF REPORT 2022-01-16 11:44:00-00:00 [facility] Critical Care Progress Note REPORT#:[id number] REPORT STATUS: Signed DATE:01/16/22 TIME: 1144 PATIENT: FALGUNI AGARWAL UNIT #: [id number] ROOM/BED: [place] [address] : 39 AGE: 81 SEX: F ATTEND: Kimo Gill MD ADM AUTHOR: Nitza Andrew NP * ALL edits or amendments must be made on the [employer]/computer document * Subjective Chief complaint: elective cardiac cath HPI: 81 yo F with PMH of pretension coronary artery disease s/p 3 stents, CKD stage III, lung cancer in remission was admitted for e lective cath. Patient had a cardiac cath and her left fe moral site developed hematoma which did not resolve on holding pressure. Vascula r surgery was consulted for the hematoma, and given that she was hypotension and anemic CT abdomen w as ordered stat. She was planned for emergent exploration and evacuation of hematoma. SHe underwent evacuation of hematoma and repair of common femoral artery on the left side. She was brought to CCU intubated Objective General VS/I O Last Documented: Result Date Time Pulse Ox 100 01/16 1000 B/P 123/62 01/16 1000 B/P Mean 86 01/16 1000 Pulse 87 01/16 1000 Resp 43 01/16 1000 O2 Delivery Room air 01/16 0400 Temp 98.3 01/16 0400 O2 Flow Rate 3 01/15 2000 FiO2 21 01/13 0922 24 hour I O ending at 0700: 01/16 0700 01/15 1900 Intake Total 120 1800.00 Output Total 610 725 Balance -490 1075.00 Intake, IV 450.00 Intake, Oral 120 Intake, Oral 1000 Supplement Intake, 350 Packed Cells Number 1 Bowel Movements Output, 10 25 Drainage Output, Urine 600 700 Patient 52.1 kg Weight Weight Bed scale Measurement Method PATIENT WEIGHT: Weight (lb): 114 Weight (oz): 13.77 Weight (kg): 52.100 Medications: Active Meds + DC'd Last 24 Hrs Iopamidol (ISOVUE-300 100ML) 100 ML .STK-MED ONE IV (DC) Acetaminophen (TYLENOL) 650 MG ONCE ONE PO (DC) Sodium Chloride (SODIUM CHLORIDE) 10 ML ASDIR IV Aspirin (ASPIRIN) 81 MG DAILY PO Clopidogrel Bisulfate (Plavix) 75 MG DAILY PO Docusate Sodium (COLACE) 100 MG BID PO Losartan Potassium (COZAAR) 25 MG DAILY PO Metoprolol Tartrate (LOPRESSOR) 50 MG BID PO Polyethylene Glycol (MIRALAX) 17 GM DAILY PO Levothyroxine Sodium (Synthroid) 50 MCG DAILY 06 00 PO Sodium Chloride (SODIUM CHLORIDE 0.9%) 250 ML ON CE ONE IV Atorvastatin Calcium (LIPITOR) 40 MG BEDTIME PO Mupirocin (BACTROBAN 2% 22 GM OINTMENT) 1 APPLIC BID NASAL Topiramate (TOPAMAX) 25 MG BID PO Results Findings/data: Laboratory Tests 01/16 0510 Chemistry Sodium (134 - 147 mEq/L) 138 Potassium (3.4 - 5.0 mEq/L) 4.1 Chloride (100 - 108 mEq/L) 113 H Carbon Dioxide (21 - 33 mEq/l) 21 Anion Gap (0 - 20) 8 BUN (7 - 18 mg/dL) 17 Creatinine (0.6 - 1.3 mg/dL) 1.1 Glomerular Filtr Rate (70 - 80) 47.6 L Glucose (70 - 110 mg/dL) 100 Calcium (8.0 - 10.5 mg/dL) 8.1 Ionized Calcium Racquel (1.09 - 1.30 MMOL/L) 1.09 Phosphorus (2.5 - 4.9 MG/DL) 3.8 Magnesium (1.80 - 2.40 mg/dL) 2.15 Laboratory Tests 01/16 0510 Hematology WBC (4.5 - 11.0 x10 3/uL) 10.9 RBC (3.54 - 5.02 x10 6/uL) 2.36 L Hgb (11.0 - 15.0 g/dL) 7.3 L Hct (33.0 - 45.0 %) 22.5 L MCV (81.0 - 99.0 fL) 95.3 MCH (27.0 - 33.0 pg) 30.9 MCHC (33.0 - 37.0 g/dL) 32.4 L RDW (11.5 - 14.5 %) 15.7 H Plt Count (150 - 400 x10 3/uL) 239 MPV (7.0 - 9.0 fL) 11.5 H Neut % (Auto) (56.0 - 77.0 %) 66.5 Lymph % (Auto) (14.0 - 32.0 %) 15.9 Falls % (Auto) (4.8 - 9.0 %) 9.7 H Eos % (Auto) (0.3 - 3.7 %) 6.8 H Baso % (Auto) (0.0 - 2.0 %) 0.7 Neut # (Auto) (2.0 - 7.6 x10 3/uL) 7.22 Lymph # (Auto) (1.0 - 3.8 x10 3/uL) 1.73 Falls # (Auto) (0.1 - 0.8 x10 3/uL) 1.05 H Eos # (Auto) (0.0 - 0.2 x10 3/uL) 0.74 H Baso # (Auto) (0.0 - 0.2 x10 3/uL) 0.08 Abs Immat Gran (auto) (0.00 - 0.03 x10 3/uL) 0. 04 H Add Manual Diff NO Immature Gran % (0.0 - 2.0 %) 0.4 Nucleated RBC % (0 - 0 %) 0.0 Nucleated RBCs # (Man) (0.0 - 0.1 x10 3/uL) 0.0 0 Laboratory Tests 01/16/22 0510: [Embedded Image Not Available] Free Text Obj Notes Free Text Obj Notes: GEN:female in no acute distress, tolerating 02 v ia nasal cannula HEENT: Atraumatic, normocephalic, moist mucous m embranes NECK: Supple, good range of motion, no tendernes s LUNGS: Symmetrical air entry, no acute respirato ry distress CV: S1, S2 regular rate and rhythm GI: Abdomen is soft, not tender or distended EXT/Musc: No edema or cyanosis. Pedal pulses pre sent Skin: Groin site no active extravasation seen. NEURO: Awake, alert and oriented x3. 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 Patient was given some dose of fentanyl as soon as she came out of the OR as she was bucking the vent. Patient placed on CPAP and she tolerated well pl an to extubate Continue to monitor the bloo d pressure. Patient had ultrasound of the left side done, did not show any pseudoaneurysm Continue to monitor the hemo globin. Patient's blood pressure on the higher side has not required any resuscitation from me. Monitor the urine output and replete electrolyte s. Patient had epigastric bowel NG tube was placed and 500 cc was sucked out. Continue blood pressure medications. DC A-line. Patient is on aspirin and Plavix bowel regimen No Indication for PPI Total critical care time 36 minutes 01/14: no new events. Hgb stable. complaining of RODAS, given tylenol Neuro patient is at baseline. cardiac: stable, hemodynamically stable, no curr ent HTN - on home bp meds hematology: Hgb 7, stable will repeat and monito r. cont asa and plavix Renal: cont to monitor the urine output and repl ete electrolytes. No Indication for PPI/ VTE: sequential to uneffe ctd leg, c/i to chemical a/c with hematoma Dispo: Monitor in ICU 01/15: no new events. lytes repleted Neuro patient is at baseline. cardiac: stable, hemodynamically stable, no curr ent HTN - on home bp meds hematology: Hgb stable will repeat and monitor. cont asa and plavix Renal: cont to monitor the urine output and repl ete electrolytes. No Indication for PPI/ VTE: sequential to uneffe ctd leg, c/i to chemical a/c with hematoma Dispo: Monitor in ICU 01/16 Patient's left femoral site appeared more swolle n than yesterday. Dr Dotson notified, CT Lower extremities perform ed. Finding of reduced size and near resolution of h ematoma reported, New nonspecific enlargement and edema within add uctor muscles, Slight increased size of possible pseudoaneurysm near the GARAGE MANAGER bufurcation Dr Dotson reviewed CT, no fu rther order obtained, will continue to monitor site Neuro: Patient at baseline Respiratory: Mo acute issue, tolerating NC CV: Hemodynamically stable, no pressor requireme nt GI: Tolerating diet, Having bowel movements. Nephr: Monitor and replete electrolytes as neede d Heme: Hgb stable at 7.3, will recheck at noon, t ransfuse for less than 7 Endo: Euglycemic, on daily levothyroxine, monito r with labs ID: Patient afebrile, monitor with cbc and fever curve No Indication for PPI VTE: sequential compression device to uneffectd leg Disposition: CCU Total critical care time 34 minutes independent of procedures Consultants: cardiology, cardiovascular surgery, colorectal surgery Electronically Signed by Nitza Andrew CYCLE SPECIALIST on at 1214 RPT #:[id number] END OF REPORT 2022-01-15 16:12:00-00:00 [facility] ([facility] Hospitalist Progress Note REPORT#:[id number] REPORT STATUS: Signed DATE:01/15/22 TIME: 161 PATIENT: FALGUNI AGARWAL UNIT #: [id number] ROOM/BED: [place] [id number] : 39 AGE: 81 SEX: F ATTEND: Kimo Gill MD ADM AUTHOR: Rosa Oscar MD * ALL edits or amendments must be made on the [employer]/computer document * Subjective Chief complaint: she is eating lunch . no new event . HPI: 81 years old female with PMH CAD with stents , C KD3 , Hx of lung cancer had elective cath yesterday . she developed hematoma on the left femoral site and hypotension . she was given blood transfusion . vascular surgeon was consulted . she had repair sugery yesterday . she was admitt ed to the CCU . now she feel well . no cp no sob no dizziness no nausea no vo miting Review of Systems Constitutional: Denies: fatigue, fever, lethargy. Respiratory: Denies: productive cough (sputum), SOB, wheezing . Cardiovascular: Denies: chest pain, SHAH (dyspnea on exertion), e pina, orthopnea. GI: Denies: abdominal pain, nausea, vomiting. Neuro: Denies: dizziness, headache. Objective General VS/I O: Vital Signs: Date Time Temp Pulse Resp B/P B/P Pulse O2 O2 Flow FiO2 Mean Ox Delivery Rate 01/15 1500 76 27 167/73 105 100 01/15 1400 69 41 136/65 94 100 01/15 1300 71 44 135/70 95 99 01/15 1200 36.8 63 16 117/56 76 100 Room air 08 1200 63 16 117/56 80 100 08/ 1100 79 29 121/58 84 99 01/15 1016 90 27 125/90 104 100 01/15 0900 80 22 160/74 106 100 01/15 0800 36.8 79 22 168/74 105 100 Room air 01/15 0800 79 22 168/74 106 100 / 0700 79 18 188/78 112 98 01/15 0400 37.3 Room air 01/15 0400 80 21 165/73 105 99 01/15 0300 77 17 137/61 88 100 01/15 0200 81 21 164/70 100 99 01/15 0103 83 17 163/72 103 99 01/15 0000 37.1 Room air 01/15 0000 93 27 154/70 100 99 01/14 2300 79 19 148/75 103 98 01/14 2200 92 34 162/76 109 96 01/14 2100 83 30 151/67 96 98 01/14 2000 36.9 Room air 01/15 2000 85 30 151/63 91 99 / 1900 84 25 155/63 90 99 24 hour I O ending at 0700: 01/15 0700 01/14 1900 Intake Total 120 660 Output Total 550 810 Balance -430 -150 Intake, Oral 120 660 Number 1 Bowel Movements Number Voids 1 Output, 10 Drainage Output, Urine 550 800 PATIENT WEIGHT: Weight (lb): 108 Weight (oz): 0.42 Weight (kg): 49.000 Medications: Active Meds + DC'd Last 24 Hrs Calcium Chloride (CALCIUM CHLORIDE) 1 GM ONCE ON E IV (DC) Sodium Chloride (SODIUM CHLORIDE 0.9%) 100 ML Magnesium Sulfate (MAGNESIUM SULFATE 4GM/SWFI 10 0ML) 100 ML ONCE ONE IV (DC) Potassium Phosphate (POTASSIUM PHOSPHATE) 20 MM ONCE ONE IV (DC) Sodium Chloride (SODIUM CHLORIDE 0.9%) 250 ML Sodium Chloride (SODIUM CHLORIDE) 10 ML ASDIR IV Sodium Chloride (SODIUM CHLORIDE 0.9%) 500 ML ON CE ONE IV (DC) Aspirin (ASPIRIN) 81 MG DAILY PO Clopidogrel Bisulfate (Plavix) 75 MG DAILY PO Docusate Sodium (COLACE) 100 MG BID PO Losartan Potassium (COZAAR) 25 MG DAILY PO Metoprolol Tartrate (LOPRESSOR) 50 MG BID PO Polyethylene Glycol (MIRALAX) 17 GM DAILY PO Levothyroxine Sodium (Synthroid) 50 MCG DAILY 06 00 PO Sodium Chloride (SODIUM CHLORIDE 0.9%) 250 ML ON CE ONE IV Atorvastatin Calcium (LIPITOR) 40 MG BEDTIME PO Mupirocin (BACTROBAN 2% 22 GM OINTMENT) 1 APPLIC BID NASAL Topiramate (TOPAMAX) 25 MG BID PO Physical Exam General appearance: alert, awake, oriented Head/Eyes: atraumatic, normal conjunctiva/sclera , normal eyelids/periorb., normocephalic Neck: full range of motion, normal thyroid, no J VD Cardiovascular: normal heart sounds, regular rat e rhythm Respiratory: aerating well, clear to auscultatio n Abdomen: non-tender, normal bowel sounds, soft, no distention Extremities: moves all, no calf tenderness, no e pina (left groin hematoma ) 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, 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 X 3, CNII-XII intact, normal speech, no motor deficits, no sensory deficits Skin: no rash Results Findings/Data: Laboratory Tests 01/15 611 Chemistry Sodium (134 - 147 mEq/L) 140 Potassium (3.4 - 5.0 mEq/L) 4.1 Chloride (100 - 108 mEq/L) 111 H Carbon Dioxide (21 - 33 mEq/l) 22 Anion Gap (0 - 20) 11 BUN (7 - 18 mg/dL) 18 Creatinine (0.6 - 1.3 mg/dL) 1.1 Glomerular Filtr Rate (70 - 80) 47.6 L Glucose (70 - 110 mg/dL) 99 Calcium (8.0 - 10.5 mg/dL) 7.8 L Ionized Calcium Racquel (1.09 - 1.30 MMOL/L) 1.10 Phosphorus (2.5 - 4.9 MG/DL) 1.7 L Magnesium (1.80 - 2.40 mg/dL) 1.68 L Laboratory Tests 01/15 611 Hematology WBC (4.5 - 11.0 x10 3/uL) 12.8 H RBC (3.54 - 5.02 x10 6/uL) 2.45 L Hgb (11.0 - 15.0 g/dL) 7.8 L Hct (33.0 - 45.0 %) 23.2 L MCV (81.0 - 99.0 fL) 94.7 MCH (27.0 - 33.0 pg) 31.8 MCHC (33.0 - 37.0 g/dL) 33.6 RDW (11.5 - 14.5 %) 16.1 H Plt Count (150 - 400 x10 3/uL) 234 MPV (7.0 - 9.0 fL) 11.4 H Neut % (Auto) (56.0 - 77.0 %) 71.8 Lymph % (Auto) (14.0 - 32.0 %) 12.8 L Falls % (Auto) (4.8 - 9.0 %) 9.2 H Eos % (Auto) (0.3 - 3.7 %) 5.2 H Baso % (Auto) (0.0 - 2.0 %) 0.5 Neut # (Auto) (2.0 - 7.6 x10 3/uL) 9.17 H Lymph # (Auto) (1.0 - 3.8 x10 3/uL) 1.63 Falls # (Auto) (0.1 - 0.8 x10 3/uL) 1.18 H Eos # (Auto) (0.0 - 0.2 x10 3/uL) 0.66 H Baso # (Auto) (0.0 - 0.2 x10 3/uL) 0.07 Abs Immat Gran (auto) (0.00 - 0.03 x10 3/uL) 0. 07 H Add Manual Diff NO Immature Gran % (0.0 - 2.0 %) 0.5 Nucleated RBC % (0 - 0 %) 0.0 Nucleated RBCs # (Man) (0.0 - 0.1 x10 3/uL) 0.0 0 Diagnosis, Assessment Plan Consultants: cardiology, cardiovascular surgery, colorectal surgery Free Text DxA P Notes Free text DxA P notes: hemorrhage from left femoral artery anemia due to acute blood loss acute respiratory failure --post procedure CAD CKD3 HTN hypothyroid hemorrhage from left femoral artery anemia due to acute blood loss vascular surgeon consult -- repair artery --yes terday monitor in CCU transfuse 2 units RBBC monitor H H -- transfuse if < 7 respiratory failure post procedure -- now resolve extubated in the CCU CAD with stents cardiology consult ASA/plavix as cardiology CKD-- stable HTN-- continue cozaar and metoprolol stable hypothyroid-- continue home med 01/14- she complaint of headache -- no cp no sob -- she is hemodynamic stable -- H H -- stable -- after 2 units blood transfu stephanie -- continue monitor in CCU 01/15- she is stable no new event -- H H -- stable -post transfusion -- continue monitor in CCU Quality: Gen Med Crit Care Current Medications Current medication review: Current Medications Sig/Brandi Start time Last Medication Dose Route Stop Time Status Admin Calcium Gluconate/ 50 ML ONCE ONE 01/13 1115 DC 01/13 Sodium Chloride IV 01/13 1124 1204 Aspirin 81 MG DAILY 01/13 900 AC 01/13 PO 02/12 0859 0829 Clopidogrel Bisulfate 75 MG DAILY 01/13 900 AC 01/13 PO 02/12 0859 0828 Docusate Sodium 100 MG BID 01/13 900 AC 01/13 PO 02/12 0859 0829 Losartan Potassium 25 MG DAILY 01/13 900 AC 0 01/13 PO 02/12 0859 0829 Metoprolol Tartrate 50 MG BID 01/13 09 AC PO 02/11 1544 0829 Polyethylene Glycol 17 GM DAILY 01/13 09 AC 0 01/13 PO 02/12 0859 0828 Levothyroxine Sodium 50 MCG DAILY 0600 01/13 06 00 AC 01/13 PO 02/12 0559 0828 Calcium Gluconate/ 100 ML ONCE ONE 01/13 0530 D C 01/13 Sodium Chloride IV 01/13 0549 0622 Magnesium Sulfate 100 ML ONCE ONE 01/13 0530 D C 01/13 IV 01/13 0929 0622 Sodium Bicarbonate 50 MEQ ONCE ONE 01/13 0530 D C 01/13 IV 01/13 0531 0621 Albumin Human 250 ML Q1H 01/12 2230 DC 01/13 IV 01/12 2359 0058 Sodium Chloride 250 ML ONCE ONE 01/12 2215 AC 0 01/13 IV 01/23 0814 0043 Fentanyl Citrate 50 MCG ONCE ONE 01/12 2145 DC 01/12 IV 01/12 2146 2151 Fentanyl Citrate 50 MCG ONCE ONE 01/12 2115 DC IV 01/13 2116 Fentanyl Citrate 0 .STK-MED ONE 01/12 2107 DC 0 01/12 IV 2112 Atorvastatin Calcium 40 MG BEDTIME 01/12 2100 A C PO 02/11 2059 Mupirocin 1 APPLIC BID 01/12 2100 AC 01/13 NASAL 01/17 09 0829 Topiramate 25 MG BID 01/12 2100 AC 01/13 PO 02/11 Glycopyrrolate 0 .STK-MED ONE 01/12 193 DC .ROUTE Neostigmine 0 .STK-MED ONE 01/12 193 DC Methylsulfate .ROUTE Cefazolin Sodium 0 .STK-MED ONE 01/12 184 DC .ROUTE Heparin Sodium 0 .STK-MED ONE 01/12 184 DC .ROUTE Fentanyl Citrate 0 .STK-MED ONE 01/12 1820 DC .ROUTE Etomidate 0 .STK-MED ONE 01/12 181 DC IV Propofol 20 ML .STK-MED ONE 01/12 181 DC IV Rocuronium Rex 0 .STK-MED ONE 01/12 181 DC IV Succinylcholine 0 .STK-MED ONE 01/12 181 DC Chloride IV Iopamidol 100 ML .STK-MED ONE 01/12 1759 DC IV 01/12 1800 1759 Heparin Sodium 0 .STK-MED ONE 01/12 1747 DC .ROUTE Thrombin 0 .STK-MED ONE 01/12 1747 DC TOPICAL Tramadol HCl 50 MG Q6H PRN PRN 01/12 1430 DC PO 01/17 1429 Atropine Sulfate 0.5 MG ASDIR PRN 01/12 1330 DC 01/12 IV 01/13 1324 1653 Sodium Chloride 1,000 ML .[id number] 01/12 1330 DC IV 01/13 0249 Sodium Chloride 500 ML ASDIR PRN 01/12 1330 DC IV 01/13 1324 Home Medications: CLOPIDOGREL (PLAVIX) 75 MG PO DAILY TOPIRAMATE (TOPAMAX) 25 MG PO BID OMEPRAZOLE ER 20 MG PO DAILY METOPROLOL TARTRATE (LOPRESSOR) 50 MG PO BID LOSARTAN (COZAAR) 25 MG PO DAILY [PROLIA] 60 MG SUBQ EVERY 6 MOS traMADol (ULTRAM) 50 MG PO Q6H PRN PRN ACUTE AMADOU N ASPIRIN 81 MG PO DAILY LEVOTHYROXINE (SYNTHROID) 50 MCG PO DAILY ATORVASTATIN (LIPITOR) 40 MG PO BEDTIME I attest that the foregoing medication list in t he medical record is true, accurate, and complete to the best of my knowled ge. Electronically Signed by Rosa Oscar MD on 2 at 1615 [facility] #:[id number] END OF REPORT 2022-01-15 11:28:00-00:00 [facility] ([facility]) Critical Care Progress Note REPORT#:[id number] REPORT STATUS: Signed DATE:01/15/22 TIME: 112 PATIENT: FALGUNI AGARWAL UNIT #: [id number] ROOM/BED: [place] [id number] : 39 AGE: 81 SEX: F ATTEND: Kimo Gill MD ADM AUTHOR: Jasmyne Mcnair * ALL edits or amendments must be made on the [employer]/computer document * Jasmyne Mcnair 01/15/22 1128: Subjective Chief complaint: elective cardiac cath HPI: 81 yo F with PMH of pretension coronary artery disease s/p 3 stents, CKD stage III, lung cancer in remission was admitted for e lective cath. Patient had a cardiac cath and her left fe moral site started developing and hematoma which did not resolve on holding pressure. Vascular surgery was consulted for the hematoma, and given that she was hypotension and anemic CT abdomen was ordered st . She was planned for emergent exploration and evacuation of hematoma. SHe underwent evacuation of hematoma and repair of common femoral artery on the left side. She was brought to CCU intubated Objective Free Text Obj Notes Free Text Obj Notes: GEN:female in no acute distress,intubated HEENT: Atraumatic, normocephalic, moist mucous m embranes NECK: Supple, good range of motion, no tendernes s LUNGS: Symmetrical air entry, no acute respirato ry distress CV: S1, S2 regular rate and rhythm GI: Abdomen is soft, not tender or distended EXT/Musc: No edema or cyanosis. Pedal pulses pre sent Skin: Groin site no active extravasation seen. NEURO: Awake, alert and oriented x3. No facial d lizette or focal deficit Diagnosis, Assessment Plan Free text A P: 81 yo F admitted to CCU for Acute respiratory failure for the surgery Acute blood loss anemia from the extravasation f rom the left common femoral artery access site for the cardiac cath Metabolic acidosis CKD Neuro patient is at baseline. Patient was given some dose of fentanyl as soon as she came out of the OR as she was bucking the vent. Patient placed on CPAP and she tolerated well pl an to extubate Continue to monitor the bloo d pressure. Patient had ultrasound of the left side done, did not show any pseudoaneurysm Continue to monitor the hemo globin. Patient's blood pressure on the higher side has not required any resuscitation from me. Monitor the urine output and replete electrolyte s. Patient had epigastric bowel NG tube was placed and 500 cc was sucked out. Continue blood pressure medications. DC A-line. Patient is on aspirin and Plavix bowel regimen No Indication for PPI Total critical care time 36 minutes 01/14: no new events. Hgb stable. complaining of RODAS, given tylenol Neuro patient is at baseline. cardiac: stable, hemodynamically stable, no curr ent HTN - on home bp meds hematology: Hgb 7, stable will repeat and monito r. cont asa and plavix Renal: cont to monitor the urine output and repl ete electrolytes. No Indication for PPI/ VTE: sequential to uneffe ctd leg, c/i to chemical a/c with hematoma Dispo: Monitor in ICU 01/15: no new events. lytes repleted Neuro patient is at baseline. cardiac: stable, hemodynamically stable, no curr ent HTN - on home bp meds hematology: Hgb stable will repeat and monitor. cont asa and plavix Renal: cont to monitor the urine output and repl ete electrolytes. No Indication for PPI/ VTE: sequential to uneffe ctd leg, c/i to chemical a/c with hematoma Dispo: Monitor in ICU Total critical care time 35 minutes independent of procedures Consultants: cardiology, cardiovascular surgery, colorectal surgery Quality: Gen Med Crit Care Current Medications Current medication review: Current Medications Sig/Brandi Start time Last Medication Dose Route Stop Time Status Admin Calcium Gluconate/ 50 ML ONCE ONE 01/13 1115 D C 01/13 Sodium Chloride IV 01/13 1124 1204 Aspirin 81 MG DAILY 01/13 900 AC 01/13 PO 02/12 0859 0829 Clopidogrel Bisulfate 75 MG DAILY 01/13 900 AC 01/13 PO 02/12 0859 0828 Docusate Sodium 100 MG BID 01/13 900 AC 01/13 PO 02/12 0859 0829 Losartan Potassium 25 MG DAILY 01/13 900 AC PO 02/12 0859 0829 Metoprolol Tartrate 50 MG BID 01/13 900 AC PO 02/11 1544 0829 Polyethylene Glycol 17 GM DAILY 01/13 900 AC 0 01/13 PO 02/12 0859 0828 Levothyroxine Sodium 50 MCG DAILY 0600 01/13 06 00 AC 01/13 PO 02/12 0559 0828 Calcium Gluconate/ 100 ML ONCE ONE 01/13 0530 D C 01/13 Sodium Chloride IV 01/13 0549 0622 Magnesium Sulfate 100 ML ONCE ONE 01/13 0530 DC 01/13 IV 01/13 0929 0622 Sodium Bicarbonate 50 MEQ ONCE ONE 01/13 0530 D C 01/13 IV 01/13 0531 0621 Albumin Human 250 ML Q1H 01/12 2230 DC 01/13 IV 01/12 2359 0058 Sodium Chloride 250 ML ONCE ONE 01/12 2215 AC 0 01/13 IV 01/23 0814 0043 Fentanyl Citrate 50 MCG ONCE ONE 01/12 214 DC 01/12 IV 01/12 214 2151 Fentanyl Citrate 50 MCG ONCE ONE 01/12 2115 DC IV 01/13 2116 Fentanyl Citrate 0 .STK-MED ONE 01/12 2107 DC 0 01/12 IV 2112 Atorvastatin Calcium 40 MG BEDTIME 01/12 2100 A C PO 02/11 2059 Mupirocin 1 APPLIC BID 01/12 2100 AC 01/13 NASAL 01/17 0901 0829 Topiramate 25 MG BID 01/12 2100 AC 01/13 PO 02/11 205 0829 Glycopyrrolate 0 .STK-MED ONE 01/12 1931 DC .ROUTE Neostigmine 0 .STK-MED ONE 01/12 1931 DC Methylsulfate .ROUTE Cefazolin Sodium 0 .STK-MED ONE 01/13 1848 DC .ROUTE Heparin Sodium 0 .STK-MED ONE 01/12 1845 DC .ROUTE Fentanyl Citrate 0 .STK-MED ONE 01/13 1820 DC .ROUTE Etomidate 0 .STK-MED ONE 01/12 1814 DC IV Propofol 20 ML .STK-MED ONE 01/12 1814 DC IV Rocuronium Rex 0 .STK-MED ONE 08/10 1814 DC IV Succinylcholine 0 .STK-MED ONE 01/12 1814 DC Chloride IV Iopamidol 100 ML .STK-MED ONE 01/12 1759 DC IV 01/12 1800 1759 Heparin Sodium 0 .STK-MED ONE 01/12 1747 DC .ROUTE Thrombin 0 .STK-MED ONE 01/12 1747 DC TOPICAL Tramadol HCl 50 MG Q6H PRN PRN 01/12 1430 DC PO 01/17 1429 Atropine Sulfate 0.5 MG ASDIR PRN 01/12 1330 DC 01/12 IV 01/13 1324 1653 Sodium Chloride 1,000 ML .[id number] 01/12 1330 DC IV 01/13 0249 Sodium Chloride 500 ML ASDIR PRN 01/12 1330 DC IV 01/13 1324 Home Medications: CLOPIDOGREL (PLAVIX) 75 MG PO DAILY TOPIRAMATE (TOPAMAX) 25 MG PO BID OMEPRAZOLE ER 20 MG PO DAILY METOPROLOL TARTRATE (LOPRESSOR) 50 MG PO BID LOSARTAN (COZAAR) 25 MG PO DAILY [PROLIA] 60 MG SUBQ EVERY 6 MOS traMADol (ULTRAM) 50 MG PO Q6H PRN PRN ACUTE AMADOU N ASPIRIN 81 MG PO DAILY LEVOTHYROXINE (SYNTHROID) 50 MCG PO DAILY ATORVASTATIN (LIPITOR) 40 MG PO BEDTIME I attest that the foregoing medication list in t he medical record is true, accurate, and complete to the best of my knowled geConnor Gutiérrez 01/17/22 0654: Attestations Physician Attestation Agree w/findings plan: Patient seen and examined. Agree with the richard gs and plan as documented by Jasmyne Mcnair at 1313 Electronically Signed by Connor Maria MD on 01/03 10/24 at 0701 RPT #:[id number] END OF REPORT 2022-01-15 09:36:00-00:00 [facility]L [facility] ([facility] Cardiology Progress Note REPORT#:[id number] REPORT STATUS: Signed DATE:01/15/22 TIME: 09 PATIENT: FALGUNI AGAWRAL UNIT #: [id number] ROOM/BED: [place] [address] : 39 AGE: 81 SEX: F ATTEND: Kimo Gill MD ADM AUTHOR: Esteban Alcaraz MD * ALL edits or amendments must be made on the [employer]/computer document * Subjective Chief complaint: No change HPI: Mrs. Agarwal is an 81 y/o F w/ PMHx: HTN, CAD s/p RCA x 3 stents in December 2021, OA, CKD stage III, Lung can on remission present s to [facility] for elective LHC. 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 Her left femoral site intermittent hematoma and RN has be en holding pressure intermittent. Currently, SBP 110's w/ IVF going. Dr. Weaver is at bedside. Telemetry shows nsr. Patient denied chest discom fort, no sob, no palpitation. Daughter reports pt had UTI and Covid last week which she completed the treatment. Objective General VS/I O: 24 hour I O ending at 0700: 01/15 0700 01/14 1900 Intake Total 120 660 Output Total 550 810 Balance -430 -150 Intake, Oral 120 660 Number 1 Bowel Movements Number Voids 1 Output, 10 Drainage Output, Urine 550 800 Vital Signs: Date Time Temp Pulse Resp B/P B/P Pulse O2 O2 F low FiO2 Mean Ox Delivery Rate 01/15 1500 76 27 167/73 105 100 / 1400 69 41 136/65 94 100 / 1300 71 44 135/70 95 99 / 1200 98.3 63 16 117/56 76 100 Room air 01/15 1200 63 16 117/56 80 100 / 1100 79 29 121/58 84 99 / 1016 90 27 125/90 104 100 / 0900 80 22 160/74 106 100 08/ 0800 98.3 79 22 168/74 105 100 Room air 08/ 0800 79 22 168/74 106 100 08/ 0700 79 18 188/78 112 98 08/ 0400 99.1 Room air / 0400 80 21 165/73 105 99 / 0300 77 17 137/61 88 100 08/ 0200 81 21 164/70 100 99 08/ 0103 83 17 163/72 103 99 / 0000 98.7 Room air 01/15 0000 93 27 154/70 100 99 01/14 2300 79 19 148/75 103 98 01/14 2200 92 34 162/76 109 96 01/14 2100 83 30 151/67 96 98 01/15 2000 98.5 Room air 01/15 2000 85 30 151/63 91 99 01/14 1900 84 25 155/63 90 99 PATIENT WEIGHT: Weight (lb): 108 Weight (oz): 0.42 Weight (kg): 49.000 Medications: Active Meds + DC'd Last 24 Hrs Calcium Chloride (CALCIUM CHLORIDE) 1 GM ONCE ON E IV (DC) Sodium Chloride (SODIUM CHLORIDE 0.9%) 100 ML Magnesium Sulfate (MAGNESIUM SULFATE 4GM/SWFI 10 0ML) 100 ML ONCE ONE IV (DC) Potassium Phosphate (POTASSIUM PHOSPHATE) 20 MM ONCE ONE IV (DC) Sodium Chloride (SODIUM CHLORIDE 0.9%) 250 ML Sodium Chloride (SODIUM CHLORIDE) 10 ML ASDIR IV Sodium Chloride (SODIUM CHLORIDE 0.9%) 500 ML ON CE ONE IV (DC) Aspirin (ASPIRIN) 81 MG DAILY PO Clopidogrel Bisulfate (Plavix) 75 MG DAILY PO Docusate Sodium (COLACE) 100 MG BID PO Losartan Potassium (COZAAR) 25 MG DAILY PO Metoprolol Tartrate (LOPRESSOR) 50 MG BID PO Polyethylene Glycol (MIRALAX) 17 GM DAILY PO Levothyroxine Sodium (Synthroid) 50 MCG DAILY 06 00 PO Sodium Chloride (SODIUM CHLORIDE 0.9%) 250 ML ON CE ONE IV Atorvastatin Calcium (LIPITOR) 40 MG BEDTIME PO Mupirocin (BACTROBAN 2% 22 GM OINTMENT) 1 APPLIC BID NASAL Topiramate (TOPAMAX) 25 MG BID PO Physical Exam General appearance: alert, awake, oriented, no a cute distress Neck: full range of motion, non-tender, normal thyroid, supple/no meningismus, no bruit/NL carotids, no JVD, no lymphadenopathy , no masses or swelling Cardiovascular: CV assessment: regular rate and rhythm Respiratory: clear to auscultation, no distress Abdomen: non-tender, normal bowel sounds , no distention, no guarding, no mass/ organomegaly, no pulsatile mass, no rebound Lower extremity: LE assessment: no edema 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, oriented X 3, normal speech Results Findings/Data: Laboratory Tests 01/15 0611 Chemistry Sodium (134 - 147 mEq/L) 140 Potassium (3.4 - 5.0 mEq/L) 4.1 Chloride (100 - 108 mEq/L) 111 H Carbon Dioxide (21 - 33 mEq/l) 22 Anion Gap (0 - 20) 11 BUN (7 - 18 mg/dL) 18 Creatinine (0.6 - 1.3 mg/dL) 1.1 Glomerular Filtr Rate (70 - 80) 47.6 L Glucose (70 - 110 mg/dL) 99 Calcium (8.0 - 10.5 mg/dL) 7.8 L Ionized Calcium Racquel (1.09 - 1.30 MMOL/L) 1.10 Phosphorus (2.5 - 4.9 MG/DL) 1.7 L Magnesium (1.80 - 2.40 mg/dL) 1.68 L Laboratory Tests 01/15 0611 Hematology WBC (4.5 - 11.0 x10 3/uL) 12.8 H RBC (3.54 - 5.02 x10 6/uL) 2.45 L Hgb (11.0 - 15.0 g/dL) 7.8 L Hct (33.0 - 45.0 %) 23.2 L MCV (81.0 - 99.0 fL) 94.7 MCH (27.0 - 33.0 pg) 31.8 MCHC (33.0 - 37.0 g/dL) 33.6 RDW (11.5 - 14.5 %) 16.1 H Plt Count (150 - 400 x10 3/uL) 234 MPV (7.0 - 9.0 fL) 11.4 H Neut % (Auto) (56.0 - 77.0 %) 71.8 Lymph % (Auto) (14.0 - 32.0 %) 12.8 L Falls % (Auto) (4.8 - 9.0 %) 9.2 H Eos % (Auto) (0.3 - 3.7 %) 5.2 H Baso % (Auto) (0.0 - 2.0 %) 0.5 Neut # (Auto) (2.0 - 7.6 x10 3/uL) 9.17 H Lymph # (Auto) (1.0 - 3.8 x10 3/uL) 1.63 Falls # (Auto) (0.1 - 0.8 x10 3/uL) 1.18 H Eos # (Auto) (0.0 - 0.2 x10 3/uL) 0.66 H Baso # (Auto) (0.0 - 0.2 x10 3/uL) 0.07 Abs Immat Gran (auto) (0.00 - 0.03 x10 3/uL) 0. 07 H Add Manual Diff NO Immature Gran % (0.0 - 2.0 %) 0.5 Nucleated RBC % (0 - 0 %) 0.0 Nucleated RBCs # (Man) (0.0 - 0.1 x10 3/uL) 0.0 0 Laboratory Tests 01/15 0611 Chemistry Magnesium (1.80 - 2.40 mg/dL) 1.68 L Results: labs reviewed, vital signs reviewed Diagnosis, Assessment Plan Consultants: cardiology, cardiovascular surgery, colorectal surgery Free Text DxA P Notes Free Text DxA P Notes: Mrs. Agarwal is an 81 y/o F w/ PMHx: HTN, CAD s/p RCA x 3 stents in December 2021, OA, CKD stage III, Lung can on remission present s to [facility] for elective LHC. 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 Her left femoral site intermittent hematoma and RN has be en holding pressure intermittent. Currently, SBP 110's w/ IVF going. Dr. Weaver is at bedside. Telemetry shows nsr. Patient denied chest discom fort, no sob, no palpitation. Daughter reports pt had UTI and Covid last week which she completed the treatment. - CAD s/p LHC. LAD 60% stenosis. RCA stents are patent and D/W patient in detail S/P surgery for right groin hematoma and as per vascular surgery. Hb after a unit of PRBC today was 7.0 On Plavix, ASA, BB and statins. Will encourage to ambulate as tolerated and if improving then transfer to floor - HTN. BP controlled. On Losartan, Metoprolol. - OA. - CKD stage III. Per IM. 01/15/22: -ECHO: 1. Left ventricle: The cavity size is normal. Wa ll thickness is normal. Systolic function is normal. The estimated eject ion fraction is 55-60%. Wall motion is normal; there are no regional wall mot ion abnormalities. Doppler parameters are consistent with abnormal left elvis tricular relaxation (grade 1 diastolic dysfunction). 2. Right ventricle: Systolic pressure is at the upper limits of normal. 3. Left atrium: The atrium is dilated. The end-s ystolic volume index (2-plane Tejeda's) is 38 ml/m 2. 4. Mitral valve: The annulus is mildly c alcified. There is mild regurgitation. 5. Tricuspid valve: Estimated right vent ricle systolic pressure is 35.23 mmHg. There is mild-moderate regurgitation. 6. Pulmonic valve: There is trivial regurgitatio n. -HTN, CAD s/p RCA, OA, CKD stage 3 -S/P LHC, MOD LAD DS -FEMORAL SITE HEMATOMA: POST LHC -S/P Emergent Left groin hemorrhage with evacuat ion of hematoma and repair of common femoral artery for hemorrhage -HB 7.8 -STABLE CARDIAC STATUS Electronically Signed by Esteban Alcaraz MD on 0 01/16/22 at 1215 RPT #:[id number] END OF REPORT 2022-01-14 22:11:00-00:00 [id number] [place] [address] PATIENT NAME: FALGUNI AGARWAL ADMIT DATE: 01/13/22 ACCOUNT NO: [id number] ROOM NO: [facility] AGE: 81 REPORT TYPE: 360 - QUERY RESPONSE DOCUMENT SEX: F ADMITTING PHYSICIAN:Sanju Gill MD ATTENDING PHYSICIAN:Sanju Gill MD Provider Query QUERY TEXT: Condition General 360MD Query related questions should be directed to: Chelo Robles RN # [phone] Based on your clinical judgement can you specify the known or suspected condition that represents the clin ical indicators listed? Ex - Acidosis Unspecified - Metabolic Acidosis - Acute Metabolic Acidosis - Respiratory Acidosis The patient's Clinical Indicators include: * PH - 3.18 PCO2 - 35.6 HCO3 - 18.2 - ABG - 01/13/2022 * "acute respiratory failure" - Hospitalist History and Physical - Rosa Blake - 01/13/2022 Options provided: -- Respond - Create new note now -- Dismiss - Not applicable / Not valid -- Dismiss - Clinically unable to determine / Un known -- Assign to another provider QUERY RESPONSE: Acute metabolic acidosis -- ph --7.249 Query created by: Kody Robles on 01/13/2022 7:10 PM Electronically Signed by Rosa Oscar MD on at 2211 PATIENT NAME: FALGUNI AGARWAL 90 2022-01-14 13:22:00-00:00 [facility] ([facility]) Critical Care Progress Note REPORT#:[id number] REPORT STATUS: Signed DATE:01/14/22 TIME: 1322 PATIENT: FALGUNI AGARWAL UNIT #: [id number] ROOM/BED: [place] [address] : 39 AGE: 81 SEX: F ATTEND: Kimo Gill MD ADM AUTHOR: Jasmyne Mcnair PA * ALL edits or amendments must be made on the [employer]/computer document * Jasmyne Mcnair 01/14/22 1322: Subjective Chief complaint: elective cardiac cath HPI: 81 yo F with PMH of pretension coronary artery disease s/p 3 stents, CKD stage III, lung cancer in remission was admitted for e lective cath. Patient had a cardiac cath and her left fe moral site started developing and hematoma which did not resolve on holding pressure. Vascular surgery was consulted for the hematoma, and given that she was hypotension and anemic CT abdomen was ordered st . She was planned for emergent exploration and evacuation of hematoma. SHe underwent evacuation of hematoma and repair of common femoral artery on the left side. She was brought to CCU intubated Review of Systems Neuro: Reports: headache. All systems rev neg: except as marked Objective General VS/I O Last Documented: Result Date Time Pulse Ox 100 01/14 1200 B/P 149/57 01/14 1200 B/P Mean 93 01/14 1200 Pulse 81 01/14 1200 Resp 26 01/14 1100 Temp 37.3 01/14 0800 O2 Delivery Room air 01/14 2000 FiO2 21 01/13 0922 24 hour I O ending at 0700: 01/14 0700 01/13 1900 Intake Total 615 668.00 Output Total 410 600 Balance 205 68.00 Intake, IV 25 188.00 Intake, Oral 240 480 Intake, 350 Packed Cells Number 1 Bowel Movements Output, 10 Drainage Output, Urine 400 600 PATIENT WEIGHT: Weight (lb): 108 Weight (oz): 0.42 Weight (kg): 49.000 Medications: Active Meds + DC'd Last 24 Hrs Acetaminophen (TYLENOL) 650 MG ONCE ONE PO (DC) Sodium Chloride (SODIUM CHLORIDE) 10 ML ASDIR IV Sodium Chloride (SODIUM CHLORIDE 0.9%) 500 ML ON CE ONE IV Aspirin (ASPIRIN) 81 MG DAILY PO Clopidogrel Bisulfate (Plavix) 75 MG DAILY PO Docusate Sodium (COLACE) 100 MG BID PO Losartan Potassium (COZAAR) 25 MG DAILY PO Metoprolol Tartrate (LOPRESSOR) 50 MG BID PO Polyethylene Glycol (MIRALAX) 17 GM DAILY PO Levothyroxine Sodium (Synthroid) 50 MCG DAILY 0 600 PO Sodium Chloride (SODIUM CHLORIDE 0.9%) 250 ML ON CE ONE IV Atorvastatin Calcium (LIPITOR) 40 MG BEDTIME PO Mupirocin (BACTROBAN 2% 22 GM OINTMENT) 1 APPLIC BID NASAL Topiramate (TOPAMAX) 25 MG BID PO Atropine Sulfate (ATROPINE SULFATE 0.1MG/ML SYR) 0.5 MG ASDIR PRN IV (DC ) Sodium Chloride (SODIUM CHLORIDE 0.9%) 500 ML DIR PRN IV (DC) Results Findings/data: Laboratory Tests 01/15 508 Chemistry Sodium (134 - 147 mEq/L) 137 Potassium (3.4 - 5.0 mEq/L) 3.7 Chloride (100 - 108 mEq/L) 109 H Carbon Dioxide (21 - 33 mEq/l) 22 Anion Gap (0 - 20) 10 BUN (7 - 18 mg/dL) 19 H Creatinine (0.6 - 1.3 mg/dL) 1.2 Glomerular Filtr Rate (70 - 80) 43.0 L Glucose (70 - 110 mg/dL) 112 H Calcium (8.0 - 10.5 mg/dL) 7.6 L Magnesium (1.80 - 2.40 mg/dL) 2.10 Laboratory Tests 01/14 0508 Coagulation INR (0.8 - 1.2) 1.1 PTT ([place]) (25.0 - 39.5 Seconds) 25.4 PT Patient/Control Mix (9.3 - 12.9 SECONDS) 12. 5 Laboratory Tests 01/145 1620 Hematology WBC (4.5 - 11.0 x10 3/uL) 13.7 H RBC (3.54 - 5.02 x10 6/uL) 2.27 L Hgb (11.0 - 15.0 g/dL) 7.0 L 6.8 L 7.0 L Hct (33.0 - 45.0 %) 21.3 L 20.7 L 20.6 L MCV (81.0 - 99.0 fL) 93.8 MCH (27.0 - 33.0 pg) 30.8 MCHC (33.0 - 37.0 g/dL) 32.9 L RDW (11.5 - 14.5 %) 17.6 H Plt Count (150 - 400 x10 3/uL) 214 MPV (7.0 - 9.0 fL) 11.8 H Neut % (Auto) (56.0 - 77.0 %) 81.5 H Lymph % (Auto) (14.0 - 32.0 %) 7.7 L Falls % (Auto) (4.8 - 9.0 %) 8.7 Eos % (Auto) (0.3 - 3.7 %) 0.9 Baso % (Auto) (0.0 - 2.0 %) 0.6 Neut # (Auto) (2.0 - 7.6 x10 3/uL) 11.19 H Lymph # (Auto) (1.0 - 3.8 x10 3/uL) 1.05 Falls # (Auto) (0.1 - 0.8 x10 3/uL) 1.19 H Eos # (Auto) (0.0 - 0.2 x10 3/uL) 0.12 Baso # (Auto) (0.0 - 0.2 x10 3/uL) 0.08 Abs Immat Gran (auto) (0.00 - 0.03 x10 3/uL) 0. 08 H Add Manual Diff NO Immature Gran % (0.0 - 2.0 %) 0.6 Nucleated RBC % (0 - 0 %) 0.0 Nucleated RBCs # (Man) (0.0 - 0.1 x10 3/uL) 0.0 0 Laboratory Tests 01/14/22507: [Embedded Image Not Available] 08/11/22 2205: [Embedded Image Not Available] 01/13/22 1620: [Embedded Image Not Available] Free Text Obj Notes Free Text Obj Notes: GEN:female in no acute distress,intubated HEENT: Atraumatic, normocephalic, moist mucous m embranes NECK: Supple, good range of motion, no tendernes s LUNGS: Symmetrical air entry, no acute respirato ry distress CV: S1, S2 regular rate and rhythm GI: Abdomen is soft, not tender or distended EXT/Musc: No edema or cyanosis. Pedal pulses pre sent Skin: Groin site no active extravasation seen. NEURO: Awake, alert and oriented x3. No facial d lizette or focal deficit Diagnosis, Assessment Plan Free text A P: 81 yo F admitted to CCU for Acute respiratory failure for the surgery Acute blood loss anemia from the extravasation f rom the left common femoral artery access site for the cardiac cath Metabolic acidosis CKD Neuro patient is at baseline. Patient was given some dose of fentanyl as soon as she came out of the OR as she was bucking the vent. Patient placed on CPAP and she tolerated well pl an to extubate Continue to monitor the bloo d pressure. Patient had ultrasound of the left side done, did not show any pseudoaneurysm Continue to monitor the hemo globin. Patient's blood pressure on the higher side has not required any resuscitation from me. Monitor the urine output and replete electrolyte s. Patient had epigastric bowel NG tube was placed and 500 cc was sucked out. Continue blood pressure medications. DC A-line. Patient is on aspirin and Plavix bowel regimen No Indication for PPI Total critical care time 36 minutes 01/14: no new events. Hgb stable. complaining of RODAS, given tylenol Neuro patient is at baseline. cardiac: stable, hemodynamically stable, no curr ent HTN - on home bp meds hematology: Hgb 7, stable will repeat and monito r. cont asa and plavix Renal: cont to monitor the urine output and repl ete electrolytes. No Indication for PPI/ VTE: sequential to uneffe ctd leg, c/i to chemical a/c with hematoma Dispo: Monitor in ICU Total critical care time 35 minutes independent of procedures Consultants: cardiology, cardiovascular surgery, colorectal surgery Quality: Gen Med Crit Care Current Medications Current medication review: Current Medications Sig/Brandi Start time Last Medication Dose Route Stop Time Status Admin Calcium Gluconate/ 50 ML ONCE ONE 01/13 1115 DC 01/13 Sodium Chloride IV 01/13 1124 1204 Aspirin 81 MG DAILY 01/13 900 AC 01/13 PO 02/12 0859 0829 Clopidogrel Bisulfate 75 MG DAILY 01/13 900 AC 01/13 PO 02/12 0859 0828 Docusate Sodium 100 MG BID 01/13 900 AC 01/13 PO 02/12 0859 0829 Losartan Potassium 25 MG DAILY 01/13 900 AC 0 01/13 PO 02/12 0859 0829 Metoprolol Tartrate 50 MG BID 01/13 900 AC PO 02/11 1544 0829 Polyethylene Glycol 17 GM DAILY 01/13 900 AC 0 01/13 PO 02/12 0859 0828 Levothyroxine Sodium 50 MCG DAILY 0600 01/13 06 00 AC 01/13 PO 02/12 0559 0828 Calcium Gluconate/ 100 ML ONCE ONE 01/13 0530 D C 01/13 Sodium Chloride IV 01/13 0549 0622 Magnesium Sulfate 100 ML ONCE ONE 01/13 0530 DC 01/13 IV 01/13 0929 0622 Sodium Bicarbonate 50 MEQ ONCE ONE 01/13 0530 D C 01/13 IV 01/13 0531 0621 Albumin Human 250 ML Q1H 01/12 2230 DC 01/13 IV 01/12 2359 0058 Sodium Chloride 250 ML ONCE ONE 01/12 2215 AC 0 01/13 IV 01/23 0814 0043 Fentanyl Citrate 50 MCG ONCE ONE 01/12 2145 DC 01/12 IV 01/12 214 2151 Fentanyl Citrate 50 MCG ONCE ONE 01/12 2115 DC IV 01/13 2116 Fentanyl Citrate 0 .STK-MED ONE 01/12 2107 DC 0 01/12 IV 2112 Atorvastatin Calcium 40 MG BEDTIME 01/12 2100 A C PO 02/11 2059 Mupirocin 1 APPLIC BID 01/12 2100 AC 01/13 NASAL 01/17 0901 08 Topiramate 25 MG BID 01/12 2100 AC 01/13 PO 02/11 205 08 Glycopyrrolate 0 .STK-MED ONE 01/12 1931 DC .ROUTE Neostigmine 0 .STK-MED ONE 01/12 1931 DC Methylsulfate .ROUTE Cefazolin Sodium 0 .STK-MED ONE 01/12 1848 DC .ROUTE Heparin Sodium 0 .STK-MED ONE 01/12 1845 DC .ROUTE Fentanyl Citrate 0 .STK-MED ONE 01/12 1820 DC .ROUTE Etomidate 0 .STK-MED ONE 01/12 1814 DC IV Propofol 20 ML .STK-MED ONE 01/12 1814 DC IV Rocuronium Rex 0 .STK-MED ONE 01/12 1814 DC IV Succinylcholine 0 .STK-MED ONE 01/12 1814 DC Chloride IV Iopamidol 100 ML .STK-MED ONE 01/12 1759 DC IV 01/12 1800 1759 Heparin Sodium 0 .STK-MED ONE 01/12 1747 DC .ROUTE Thrombin 0 .STK-MED ONE 01/12 1747 DC TOPICAL Tramadol HCl 50 MG Q6H PRN PRN 01/12 1430 DC PO 01/17 1429 Atropine Sulfate 0.5 MG ASDIR PRN 01/12 1330 D C 01/12 IV 01/13 1324 1653 Sodium Chloride 1,000 ML .[id number] 01/12 1330 DC IV 01/13 0249 Sodium Chloride 500 ML ASDIR PRN 01/12 1330 DC IV 01/13 1324 Home Medications: CLOPIDOGREL (PLAVIX) 75 MG PO DAILY TOPIRAMATE (TOPAMAX) 25 MG PO BID OMEPRAZOLE ER 20 MG PO DAILY METOPROLOL TARTRATE (LOPRESSOR) 50 MG PO BID LOSARTAN (COZAAR) 25 MG PO DAILY [PROLIA] 60 MG SUBQ EVERY 6 MOS traMADol (ULTRAM) 50 MG PO Q6H PRN PRN ACUTE AMADOU N ASPIRIN 81 MG PO DAILY LEVOTHYROXINE (SYNTHROID) 50 MCG PO DAILY ATORVASTATIN (LIPITOR) 40 MG PO BEDTIME I attest that the foregoing medication list in [facility] medical record is true, accurate, and complete to the best of my knowled Connor Cardona 01/17/22 0642: Attestations Physician Attestation Agree w/findings plan: Patient seen and examined. Agree with the richard gs and plan as documented by Jasmyne Mcnair at 1515 Electronically Signed by Connor Maria MD on 01/03 10/24 at 1942 RPT #:[id number] END OF REPORT 2022-01-14 11:49:00-00:00 [facility] Hospitalist Progress Note REPORT#:[id number] REPORT STATUS: Signed DATE:01/14/22 TIME: 1149 PATIENT: FALGUNI AGARWAL UNIT #: [id number] ROOM/BED: [place] [address] : 39 AGE: 81 SEX: F ATTEND: Kimo Gill MD ADM AUTHOR: Rosa Oscar MD * ALL edits or amendments must be made on the [employer]/computer document * Subjective Chief complaint: she complaint of headache . no cp no sob no dizz iness HPI: 81 years old female with PMH CAD with stents , C KD3 , Hx of lung cancer had elective cath yesterday . she developed hematoma on the left femoral site and hypotension . she was given blood transfusion . vascular surgeon was consulted . she had repair sugery yesterday . she was admitt ed to the CCU . now she feel well . no cp no sob no dizziness no nausea no vo miting Review of Systems Constitutional: Denies: fatigue, fever, lethargy. Respiratory: Denies: productive cough (sputum), SOB, wheezing . Cardiovascular: Denies: chest pain, SHAH (dyspnea on exertion), e pina. GI: Denies: abdominal pain, nausea, vomiting. Neuro: Reports: headache. Denies: confusion, dizziness. Objective General VS/I O: Vital Signs: Date Time Temp Pulse Resp B/P B/P Pulse O2 O2 F low FiO2 Mean Ox Delivery Rate 01/14 0945 82 156/54 94 99 01/14 0930 87 150/60 96 98 01/14 0915 84 144/56 89 99 01/14 0900 97 138/58 92 100 01/15 0845 82 131/76 99 99 01/15 0830 83 143/58 91 99 01/15 0815 80 16 145/71 100 97 01/14 0800 37.3 01/14 0800 78 21 150/73 103 97 01/14 0745 79 24 122/107 114 97 01/14 0730 80 137/52 84 97 01/14 0715 77 143/54 89 100 08/12 0700 79 142/54 88 97 08/12 0600 77 26 132/49 81 99 08/12 0515 80 26 144/54 89 99 08/12 0400 37.4 08/12 0400 79 34 129/61 88 96 08/12 0345 80 32 123/44 74 95 08/12 0330 87 32 136/50 83 96 08/12 0315 85 35 147/55 92 99 08/12 0314 37.4 84 23 149/56 100 08/12 0300 84 29 157/67 96 96 08/12 0245 86 32 142/52 88 97 08/12 0230 85 33 138/49 83 99 08/12 0215 80 27 137/48 82 98 08/12 0200 81 32 148/65 93 97 08/12 0145 82 28 135/49 81 96 08/12 0130 81 25 135/48 80 95 08/12 0129 82 27 131/46 78 96 08/12 0115 80 25 135/47 80 97 08/12 0100 81 31 140/64 92 99 08/12 0045 80 40 140/50 84 96 08/12 0030 82 34 93/53 71 99 08/12 0015 78 19 130/46 77 98 08/12 0014 37.9 82 22 128/47 98 08/12 0000 82 34 140/65 93 98 08/11 2351 37.8 08/11 2351 37.8 80 20 126/47 96 08/11 2300 88 17 134/63 90 97 08/11 2200 90 37 144/64 92 99 08/11 2100 92 28 138/63 91 98 08/11 2000 37.8 Room air 08/11 1999 97 45 143/69 94 99 08/11 1900 97 32 131/43 76 94 08/11 1830 87 28 122/43 74 96 08/11 1800 124/44 74 08/11 1800 84 37 137/63 90 96 08/11 1730 84 18 129/46 79 97 08/11 1700 131/48 81 08/11 1700 86 33 139/60 86 100 08/11 1630 86 38 136/50 85 97 08/11 1600 37.5 128/47 80 08/11 1600 81 34 131/62 89 95 08/11 1530 84 28 122/47 78 96 08/11 1500 124/46 78 08/11 1500 81 28 128/61 88 100 08/11 1430 80 43 94/47 68 97 01/13 1400 104/58 78 01/13 1400 79 23 127/61 88 99 01/13 1330 77 25 99/74 83 100 01/13 1300 90/55 70 01/13 1300 79 22 125/57 82 98 01/13 1230 79 32 121/41 71 97 01/13 1200 112/40 67 01/13 1200 37.3 85 21 124/56 81 98 24 hour I O ending at 0700: 01/14 0700 01/13 1900 Intake Total 615 668.00 Output Total 410 600 Balance 205 68.00 Intake, IV 25 188.00 Intake, Oral 240 480 Intake, 350 Packed Cells Number 1 Bowel Movements Output, 10 Drainage Output, Urine 400 600 PATIENT WEIGHT: Weight (lb): 108 Weight (oz): 0.42 Weight (kg): 49.000 Medications: Active Meds + DC'd Last 24 Hrs Acetaminophen (TYLENOL) 650 MG ONCE ONE PO (DC) Sodium Chloride (SODIUM CHLORIDE) 10 ML ASDIR IV Sodium Chloride (SODIUM CHLORIDE 0.9%) 500 ML ON CE ONE IV Aspirin (ASPIRIN) 81 MG DAILY PO Clopidogrel Bisulfate (Plavix) 75 MG DAILY PO Docusate Sodium (COLACE) 100 MG BID PO Losartan Potassium (COZAAR) 25 MG DAILY PO Metoprolol Tartrate (LOPRESSOR) 50 MG BID PO Polyethylene Glycol (MIRALAX) 17 GM DAILY PO Levothyroxine Sodium (Synthroid) 50 MCG DAILY 06 00 PO Sodium Chloride (SODIUM CHLORIDE 0.9%) 250 ML ON CE ONE IV Atorvastatin Calcium (LIPITOR) 40 MG BEDTIME PO Mupirocin (BACTROBAN 2% 22 GM OINTMENT) 1 APPLIC BID NASAL Topiramate (TOPAMAX) 25 MG BID PO Atropine Sulfate (ATROPINE SULFATE 0.1MG/ML SYR) 0.5 MG ASDIR PRN IV (DC ) Sodium Chloride (SODIUM CHLORIDE 0.9%) 500 ML DIR PRN IV (DC) Physical Exam General appearance: alert, awake, oriented, no a cute distress, pleasant Head/Eyes: atraumatic, normal conjunctiva/sclera , normal eyelids/periorb., normocephalic Neck: full range of motion, normal thyroid, no J VD Cardiovascular: normal heart sounds, regular rat e rhythm Respiratory: aerating well, clear to auscultatio n Abdomen: non-tender, normal bowel sounds, soft, no distention Extremities: moves all, no calf tenderness, no e pina (left groin hematoma ) 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, 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 X 3, CNII-XII intact, normal speech, no motor deficits, no sensory deficits Skin: no rash Results Findings/Data: Laboratory Tests 01/14 0508 Chemistry Sodium (134 - 147 mEq/L) 137 Potassium (3.4 - 5.0 mEq/L) 3.7 Chloride (100 - 108 mEq/L) 109 H Carbon Dioxide (21 - 33 mEq/l) 22 Anion Gap (0 - 20) 10 BUN (7 - 18 mg/dL) 19 H Creatinine (0.6 - 1.3 mg/dL) 1.2 Glomerular Filtr Rate (70 - 80) 43.0 L Glucose (70 - 110 mg/dL) 112 H Calcium (8.0 - 10.5 mg/dL) 7.6 L Magnesium (1.80 - 2.40 mg/dL) 2.10 Laboratory Tests 01/14 0508 Coagulation INR (0.8 - 1.2) 1.1 PTT ([place]) (25.0 - 39.5 Seconds) 25.4 PT Patient/Control Mix (9.3 - 12.9 SECONDS) 12. 5 Laboratory Tests 01/14 01/13 01/13 0508 2205 1620 Hematology WBC (4.5 - 11.0 x10 3/uL) 13.7 H RBC (3.54 - 5.02 x10 6/uL) 2.27 L Hgb (11.0 - 15.0 g/dL) 7.0 L 6.8 L 7.0 L Hct (33.0 - 45.0 %) 21.3 L 20.7 L 20.6 L MCV (81.0 - 99.0 fL) 93.8 MCH (27.0 - 33.0 pg) 30.8 MCHC (33.0 - 37.0 g/dL) 32.9 L RDW (11.5 - 14.5 %) 17.6 H Plt Count (150 - 400 x10 3/uL) 214 MPV (7.0 - 9.0 fL) 11.8 H Neut % (Auto) (56.0 - 77.0 %) 81.5 H Lymph % (Auto) (14.0 - 32.0 %) 7.7 L Falls % (Auto) (4.8 - 9.0 %) 8.7 Eos % (Auto) (0.3 - 3.7 %) 0.9 Baso % (Auto) (0.0 - 2.0 %) 0.6 Neut # (Auto) (2.0 - 7.6 x10 3/uL) 11.19 H Lymph # (Auto) (1.0 - 3.8 x10 3/uL) 1.05 Falls # (Auto) (0.1 - 0.8 x10 3/uL) 1.19 H Eos # (Auto) (0.0 - 0.2 x10 3/uL) 0.12 Baso # (Auto) (0.0 - 0.2 x10 3/uL) 0.08 Abs Immat Gran (auto) (0.00 - 0.03 x10 3/uL) 0. 08 H Add Manual Diff NO Immature Gran % (0.0 - 2.0 %) 0.6 Nucleated RBC % (0 - 0 %) 0.0 Nucleated RBCs # (Man) (0.0 - 0.1 x10 3/uL) 0.0 0 Diagnosis, Assessment Plan Consultants: cardiology, cardiovascular surgery, colorectal surgery Free Text DxA P Notes Free text DxA P notes: hemorrhage from left femoral artery anemia due to acute blood loss acute respiratory failure --post procedure CAD CKD3 HTN hypothyroid hemorrhage from left femoral artery anemia due to acute blood loss vascular surgeon consult -- repair artery --yes terday monitor in CCU transfuse 2 units RBBC monitor H H -- transfuse if < 7 respiratory failure post procedure -- now resolve extubated in the CCU CAD with stents cardiology consult ASA/plavix as cardiology CKD-- stable HTN-- continue cozaar and metoprolol stable hypothyroid-- continue home med 01/14- she complaint of headache -- no cp no sob -- she is hemodynamic stable -- H H -- stable -- after 2 units blood transfu stephanie -- continue monitor in CCU Quality: Gen Med Crit Care Current Medications Current medication review: Current Medications Sig/Brandi Start time Last Medication Dose Route Stop Time Status Admin Calcium Gluconate/ 50 ML ONCE ONE 01/13 1115 DC 01/13 Sodium Chloride IV 01/13 1124 1204 Aspirin 81 MG DAILY 01/13 900 AC 01/13 PO 02/12 0859 0829 Clopidogrel Bisulfate 75 MG DAILY 01/13 900 AC 01/13 PO 02/12 0859 0828 Docusate Sodium 100 MG BID 01/13 900 AC 01/13 PO 02/12 0859 0829 Losartan Potassium 25 MG DAILY 01/13 900 AC PO 02/12 0859 0829 Metoprolol Tartrate 50 MG BID 01/13 900 AC PO 02/11 1544 0829 Polyethylene Glycol 17 GM DAILY 01/13 900 AC 0 01/13 PO 02/12 0859 0828 Levothyroxine Sodium 50 MCG DAILY 0600 01/13 06 00 AC 01/13 PO 02/12 0559 0828 Calcium Gluconate/ 100 ML ONCE ONE 01/13 0530 DC 01/13 Sodium Chloride IV 01/13 0549 0622 Magnesium Sulfate 100 ML ONCE ONE 01/13 0530 DC 01/13 IV 01/13 0929 0622 Sodium Bicarbonate 50 MEQ ONCE ONE 01/13 0530 D C 01/13 IV 01/13 0531 0621 Albumin Human 250 ML Q1H 01/12 2230 DC 01/13 IV 01/12 2359 0058 Sodium Chloride 250 ML ONCE ONE 01/12 2215 AC 0 01/13 IV 01/23 0814 0043 Fentanyl Citrate 50 MCG ONCE ONE 01/12 214 DC 01/12 IV 01/12 214 2151 Fentanyl Citrate 50 MCG ONCE ONE 01/12 211 DC IV 01/13 2116 Fentanyl Citrate 0 .STK-MED ONE 01/12 2107 DC 0 01/12 IV 2112 Atorvastatin Calcium 40 MG BEDTIME 01/12 2100 A C PO 02/11 2059 Mupirocin 1 APPLIC BID 01/12 2100 AC 01/13 NASAL 01/17 0901 0829 Topiramate 25 MG BID 01/12 2100 AC 01/13 PO 02/11 205 0829 Glycopyrrolate 0 .STK-MED ONE 01/12 1931 DC .ROUTE Neostigmine 0 .STK-MED ONE 01/12 1931 DC Methylsulfate .ROUTE Cefazolin Sodium 0 .STK-MED ONE 01/13 1848 DC .ROUTE Heparin Sodium 0 .STK-MED ONE 01/12 1845 DC .ROUTE Fentanyl Citrate 0 .STK-MED ONE 01/12 1820 DC .ROUTE Etomidate 0 .STK-MED ONE 01/12 181 DC IV Propofol 20 ML .STK-MED ONE 01/12 181 DC IV Rocuronium Rex 0 .STK-MED ONE 01/12 181 DC IV Succinylcholine 0 .STK-MED ONE 01/12 181 DC Chloride IV Iopamidol 100 ML .STK-MED ONE 01/12 1759 DC IV 01/12 1800 1759 Heparin Sodium 0 .STK-MED ONE 01/12 174 DC .ROUTE Thrombin 0 .STK-MED ONE 01/12 174 DC TOPICAL Tramadol HCl 50 MG Q6H PRN PRN 01/12 1430 DC PO 01/17 1429 Atropine Sulfate 0.5 MG ASDIR PRN 01/12 1330 DC 01/12 IV 01/13 1324 1653 Sodium Chloride 1,000 ML .[id number] 01/12 1330 DC IV 01/13 0249 Sodium Chloride 500 ML ASDIR PRN 01/12 1330 DC IV 01/13 1324 Home Medications: CLOPIDOGREL (PLAVIX) 75 MG PO DAILY TOPIRAMATE (TOPAMAX) 25 MG PO BID OMEPRAZOLE ER 20 MG PO DAILY METOPROLOL TARTRATE (LOPRESSOR) 50 MG PO BID LOSARTAN (COZAAR) 25 MG PO DAILY [PROLIA] 60 MG SUBQ EVERY 6 MOS traMADol (ULTRAM) 50 MG PO Q6H PRN PRN ACUTE AMADOU N ASPIRIN 81 MG PO DAILY LEVOTHYROXINE (SYNTHROID) 50 MCG PO DAILY ATORVASTATIN (LIPITOR) 40 MG PO BEDTIME I attest that the foregoing medication list in t medical record is true, accurate, and complete to the best of my knowled ge. Electronically Signed by Rosa Oscar MD on 2 at 2155 [facility] #:[id number] END OF REPORT 2022-01-14 06:38:00-00:00 [facility] REPORT#:[id number] REPORT STATUS: Signed DATE:01/14/22 TIME: 0638 PATIENT: FALGUNI AGARWAL UNIT #: [id number] ROOM/BED: [place] [address] : 39 AGE: 81 SEX: F ATTEND: Kimo Gill MD ADM AUTHOR: Kenton Lance MD * ALL edits or amendments must be made on the [employer]/computer document * Subjective Chief complaint: No change HPI: Mrs. Agarwal is an 81 y/o F w/ PMHx: HTN, CAD s/p RCA x 3 stents in December 2021, OA, CKD stage III, Lung can on remission present s to [facility] for elective LHC. 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 Her left femoral site intermittent hematoma and RN has be en holding pressure intermittent. Currently, SBP 110's w/ IVF going. Dr. Weaver is at bedside. Telemetry shows nsr. Patient denied chest discom fort, no sob, no palpitation. Daughter reports pt had UTI and Covid last week which she completed the treatment. Objective General VS/I O: 24 hour I O ending at 0700: 01/14 0700 01/13 1900 Intake Total 615 668.00 Output Total 410 600 Balance 205 68.00 Intake, IV 25 188.00 Intake, Oral 240 480 Intake, 350 Packed Cells Number 1 Bowel Movements Output, 10 Drainage Output, Urine 400 600 Vital Signs: Date Time Temp Pulse Resp B/P B/P Pulse O2 O2 F low FiO2 Mean Ox Delivery Rate 01/14 0600 77 26 132/49 81 99 08/12 0515 80 26 144/54 89 99 08/12 0400 99.3 08/12 0400 79 34 129/61 88 96 08/12 0345 80 32 123/44 74 95 08/12 0330 87 32 136/50 83 96 08/12 0315 85 35 147/55 92 99 08/12 0314 99.3 84 23 149/56 100 08/12 0300 84 29 157/67 96 96 08/12 0245 86 32 142/52 88 97 08/12 0230 85 33 138/49 83 99 08/12 0215 80 27 137/48 82 98 08/12 0200 81 32 148/65 93 97 08/12 0145 82 28 135/49 81 96 08/12 0130 81 25 135/48 80 95 08/12 0129 82 27 131/46 78 96 08/12 0115 80 25 135/47 80 97 08/12 0100 81 31 140/64 92 99 08/12 0045 80 40 140/50 84 96 08/12 0030 82 34 93/53 71 99 08/12 0015 78 19 130/46 77 98 08/12 0014 100.2 82 22 128/47 98 08/12 0000 82 34 140/65 93 98 08/11 2351 100.0 08/11 2351 100.0 80 20 126/47 96 08/11 2300 88 17 134/63 90 97 08/11 2200 90 37 144/64 92 99 08/11 2100 92 28 138/63 91 98 08/11 1999 100.0 Room air 08/11 1999 97 45 143/69 94 99 08/11 1900 97 32 131/43 76 94 08/11 1830 87 28 122/43 74 96 08/11 1800 124/44 74 08/11 1800 84 37 137/63 90 96 08/11 1730 84 18 129/46 79 97 08/11 1700 131/48 81 08/11 1700 86 33 139/60 86 100 08/11 1630 86 38 136/50 85 97 08/11 1600 99.5 128/47 80 08/11 1600 81 34 131/62 89 95 08/11 1530 84 28 122/47 78 96 08/11 1500 124/46 78 08/11 1500 81 28 128/61 88 100 08/11 1430 80 43 94/47 68 97 08/11 1400 104/58 78 08/11 1400 79 23 127/61 88 99 08/11 1330 77 25 99/74 83 100 08/11 1300 90/55 70 08/11 1300 79 22 125/57 82 98 08/11 1230 79 32 121/41 71 97 08/11 1200 112/40 67 08/11 1200 99.2 85 21 124/56 81 98 08/11 1130 92 35 136/46 80 99 08/11 1115 94 23 133/46 79 100 08/11 1100 136/45 79 08/11 1100 93 42 142/65 93 99 08/11 1055 94 08/11 1045 100 30 149/49 87 97 08/11 1030 101 33 144/49 85 98 08/11 1015 95 20 139/45 78 96 08/11 1000 148/48 85 08/11 1000 94 20 165/70 100 95 08/11 0945 91 16 138/45 81 96 08/11 0930 95 20 151/49 87 97 08/11 0922 97 Room air 21 08/11 0915 101 34 150/50 88 100 08/11 0900 150/49 87 08/11 0900 96 17 161/67 96 96 /11 0845 94 17 142/48 84 99 08/11 0830 97 24 154/52 92 100 08/11 0815 93 18 142/48 84 96 08/11 0800 147/50 87 08/11 0800 98.7 96 24 165/70 101 97 08/11 0745 97 20 149/51 90 91 08/11 0730 143/51 85 08/11 0730 99 26 162/64 92 91 08/11 0715 100 27 150/53 90 96 08/11 0700 156/55 97 08/ 0700 102 37 173/74 106 95 PATIENT WEIGHT: Weight (lb): 108 Weight (oz): 0.42 Weight (kg): 49.000 Medications: Active Meds + DC'd Last 24 Hrs Sodium Chloride (SODIUM CHLORIDE) 10 ML ASDIR IV Sodium Chloride (SODIUM CHLORIDE 0.9%) 500 ML ON CE ONE IV Calcium Gluconate/Sodium Chloride (Calcium Gluco carmen 1 GM/NS 50 mL) 50 ML ONCE ONE IV (DC) Aspirin (ASPIRIN) 81 MG DAILY PO Clopidogrel Bisulfate (Plavix) 75 MG DAILY PO Docusate Sodium (COLACE) 100 MG BID PO Losartan Potassium (COZAAR) 25 MG DAILY PO Metoprolol Tartrate (LOPRESSOR) 50 MG BID PO Polyethylene Glycol (MIRALAX) 17 GM DAILY PO Levothyroxine Sodium (Synthroid) 50 MCG DAILY 06 00 PO Magnesium Sulfate (MAGNESIUM SULFATE 4GM/SWFI 10 0ML) 100 ML ONCE ONE IV (DC) Sodium Chloride (SODIUM CHLORIDE 0.9%) 250 ML ON CE ONE IV Atorvastatin Calcium (LIPITOR) 40 MG BEDTIME PO Mupirocin (BACTROBAN 2% 22 GM OINTMENT) 1 APPLIC BID NASAL Topiramate (TOPAMAX) 25 MG BID PO Atropine Sulfate (ATROPINE SULFATE 0.1MG/ML SYR) 0.5 MG ASDIR PRN IV (DC ) Sodium Chloride (SODIUM CHLORIDE 0.9%) 500 ML DIR PRN IV (DC) Physical Exam General appearance: sleeping comfortably Neck: full range of motion, non-tender, normal thyroid, supple/no meningismus, no bruit/NL carotids, no JVD, no lymphadenopathy , no masses or swelling Cardiovascular: CV assessment: regular rate and rhythm Respiratory: clear to auscultation, no distress Abdomen: non-tender, normal bowel sounds , no distention, no guarding, no mass/ organomegaly, no pulsatile mass, no rebound Results Findings/Data: Laboratory Tests 01/14 0508 Coagulation INR (0.8 - 1.2) 1.1 PTT ([place]) (25.0 - 39.5 Seconds) 25.4 PT Patient/Control Mix (9.3 - 12.9 SECONDS) 12. 5 Laboratory Tests 01/14 01/13 01/13 01/13 0508 2205 1620 1030 Hematology WBC (4.5 - 11.0 x10 3/uL) 13.7 H 14.6 H RBC (3.54 - 5.02 x10 6/uL) 2.27 L 2.32 L Hgb (11.0 - 15.0 g/dL) 7.0 L 6.8 L 7.0 L 7.3 L Hct (33.0 - 45.0 %) 21.3 L 20.7 L 20.6 L 21.2 L MCV (81.0 - 99.0 fL) 93.8 91.4 MCH (27.0 - 33.0 pg) 30.8 31.5 MCHC (33.0 - 37.0 g/dL) 32.9 L 34.4 RDW (11.5 - 14.5 %) 17.6 H 18.4 H Plt Count (150 - 400 x10 3/uL) 214 212 MPV (7.0 - 9.0 fL) 11.8 H 11.4 H Neut % (Auto) (56.0 - 77.0 %) 81.5 H 82.1 H Lymph % (Auto) (14.0 - 32.0 %) 7.7 L 7.6 L Falls % (Auto) (4.8 - 9.0 %) 8.7 9.3 H Eos % (Auto) (0.3 - 3.7 %) 0.9 0.1 L Baso % (Auto) (0.0 - 2.0 %) 0.6 0.4 Neut # (Auto) (2.0 - 7.6 x10 3/uL) 11.19 H 11. 96 H Lymph # (Auto) (1.0 - 3.8 x10 3/uL) 1.05 1.11 Falls # (Auto) (0.1 - 0.8 x10 3/uL) 1.19 H 1.35 H Eos # (Auto) (0.0 - 0.2 x10 3/uL) 0.12 0.01 Baso # (Auto) (0.0 - 0.2 x10 3/uL) 0.08 0.06 Abs Immat Gran (auto) (0.00 - 0.03 x10 3/uL) 0. 08 H 0.07 H Add Manual Diff NO NO Immature Gran % (0.0 - 2.0 %) 0.6 0.5 Nucleated RBC % (0 - 0 %) 0.0 0.0 Nucleated RBCs # (Man) (0.0 - 0.1 x10 3/uL) 0.0 0 0.00 Results: echo personally reviewed Diagnosis, Assessment Plan Consultants: cardiology, cardiovascular surgery, colorectal surgery Free Text DxA P Notes Free Text DxA P Notes: Mrs. Agarwal is an 81 y/o F w/ PMHx: HTN, CAD s/p RCA x 3 stents in December 2021, OA, CKD stage III, Lung can on remission present s to [facility] for elective LHC. 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 Her left femoral site intermittent hematoma and RN has be en holding pressure intermittent. Currently, SBP 110's w/ IVF going. Dr. Weaver is at bedside. Telemetry shows nsr. Patient denied chest discom fort, no sob, no palpitation. Daughter reports pt had UTI and Covid last week which she completed the treatment. - CAD s/p LHC. LAD 60% stenosis. RCA stents are patent and D/W patient in detail S/P surgery for right groin hematoma and as per vascular surgery. Hb after a unit of PRBC today was 7.0 On Plavix, ASA, BB and statins. Will encourage to ambulate as tolerated and if improving then transfer to floor - HTN. BP controlled. On Losartan, Metoprolol. - OA. - CKD stage III. Per IM. Electronically Signed by Kenton Lance MD on at 0641 [facility] #:[id number] END OF REPORT 2022-01-13 20:51:00-00:00 [id number] [facility] [place] [id number] PATIENT NAME: FALGUNI AGARWAL ADMIT DATE: 01/13/22 ACCOUNT NO: [id number] ROOM NO: [facility] AGE: 81 REPORT TYPE: eECHOCARDIOGRAM REPORT SEX: F ADMITTING PHYSICIAN:Sanju Gill MD ATTENDING PHYSICIAN:Sanju Gill MD *[place] [address] Transthoracic Echocardiogram Patient: Falguni Agarwal Study Date: 01/13/2022 BP: 118 / 72 Location: [facility] URN: [id number] 2590 : 1940 Age: 81 Height: 57 in / 144.8 cm Gender: F Weight: 107 .8 lb / 49 kg BMI/BSA: 23.4 kg/m 2 / 1.38 m 2 *Ordering Physician: Kenton Hardy MD *Interpreting Physician: Kenton Hardy MD *Underground Supervisor: * Jasmyne Fu Indications: CAD. Study data: Transthoracic echocardiogram. Proced ure: Transthoracic echocardiography was performed. Image quality wa s adequate. Complete 2D, complete spectral Doppler, and color Doppler . Location: CCU Patient status: Inpatient. Patient room number: 3313. Study status: Routine. Findings Left ventricle: The cavity size is normal. Wall thickness is normal. Systolic function is normal. The estimated eject ion fraction is 55-60%. Wall motion is normal; there are no regional wal l motion abnormalities. Doppler parameters are consistent with abnormal left ventricular relaxation (grade 1 diastolic dysfunction). Right ventricle: Estimated TAPSE is 2.2 cm. The cavity size is normal. PATIENT NAME: FALGUNI AGARWAL 89 Systolic function is normal. Systolic pressure i s at the upper limits of normal. Left atrium: The atrium is dilated. Right atrium: The atrium is normal in size. Aorta: Aortic root: The aortic root is normal in size. Aortic valve: The valve is trileaflet. The leafl ets are mildly calcified. There is no evidence of stenosis. Th ere is no regurgitation. Mitral valve: The annulus is mildly calcified. T here is no evidence of stenosis. There is mild regurgitation. Tricuspid valve: Estimated right ventricle systo lic pressure is 35.23 mmHg. The valve is structurally normal. There is mild-moderate regurgitation. Pulmonic valve: The valve is structurally normal . There is trivial regurgitation. Pericardium: There is no pericardial effusion. Pulmonary arteries: The main pulmonary artery is normal-sized. Systemic veins: Inferior vena cava: The vessel is normal in size . Measurements Left ventricle Value Ref LORETTA, LAX 4.3 cm 3.8 - 5.2 ESD, LAX 2.5 cm 2.2 - 3.5 ESD/bsa, LAX 1.8 cm/m 2 1.3 - 2.1 FS, LAX 42 % 27 - 45 ESD/bsa major 3.8 cm/m 2 --------- ax, A4C LORETTA/bsa minor 3.8 cm/m 2 --------- ax, A4C LORETTA major ax, 6.2 cm --------- A2C ESD major ax, 5.5 cm --------- A2C LORETTA/bsa major 4.5 cm/m 2 --------- ax, A2C ESD/bsa major 4.0 cm/m 2 --------- ax, A2C PW, ED 0.7 cm 0.6 - 0.9 IVS/PW, ED 1.32 --------- EF 73 % 54 - 74 E', lat kristen, 9.2 cm/sec >=10.0 TDI E/e', lat kristen, 12 --------- TDI E', med kristen, 10.1 cm/sec >=7.0 TDI E/e', med kristen, 11 --------- TDI E', avg, TDI 9.6 cm/sec --------- E/e', avg, TDI 11 <=14 PATIENT NAME: FALGUNI AGARWAL 89 LVOT Value Ref Diam, S 1.98 cm --------- Area 3.1 cm 2 --------- Peak irving, S 1.3 m/sec --------- Mean irving, S 0.77 m/sec --------- VTI, S 24.6 cm --------- Peak grad, S 7 mm Hg --------- Mean grad, S 3 mm Hg --------- SV 75 ml --------- Qs 6 L/min --------- Qs/bsa 4.3 L/(min-m 2) --------- SV/bsa 55 ml/m 2 --------- Ventricular septum Value Ref IVS, ED 1.0 cm 0.6 - 0.9 Right ventricle Value Ref LORETTA, LAX 1.8 cm --------- TAPSE, MM 2.2 cm 1.7 - 3.1 RVOT Value Ref Peak v, S 0.68 m/sec --------- Peak grad, S 2 mm Hg --------- Left atrium Value Ref AP dim, ES 3.31 cm 2.70 - 3.80 Vol/bsa, ES, 30 ml/m 2 11 - 40 1-p A4C Vol, ES, 2-p 53 ml --------- Vol/bsa, ES, 38 ml/m 2 16 - 34 2-p Vol/bsa, ES, 32 ml/m 2 16 - 34 A/L AP dim, ES MM 3.5 cm 2.7 - 3.8 LA/Ao root 1.43 --------- ratio, MM Right atrium Value Ref Area, ES 13 cm 2 10 - 18 SI dim, ES, A4C 4.9 cm 3.4 - 5.3 SI dim/bsa, ES, 3.6 cm/m 2 1.9 - 3.1 A4C Vol, ES, A/L 31 ml --------- Vol, ES, 1-p 31 ml --------- A4C Vol/bsa, ES, 22 ml/m 2 9 - 33 1-p A4C Aortic valve Value Ref Leaflet sep, MM 1.57 cm --------- Peak v, S 1.29 m/sec --------- Mean v, S 0.78 m/sec --------- PATIENT NAME: FALGUNI AGARWAL 89 VTI, S 23.6 cm --------- Mean grad, S 2.8 mm Hg --------- Peak grad, S 6.6 mm Hg --------- LVOT/AV, VTI 1.04 --------- ratio ROSETTA, VTI 3.19 cm 2 --------- LVOT/AV, Vpeak 1.01 --------- ratio ROSETTA, Vmax 3.09 cm 2 --------- Mitral valve Value Ref Peak E 0.1 m/sec --------- Peak A 1.35 m/sec --------- Mean v, D 0.85 m/sec --------- VTI leaflet 33.5 cm --------- coapt Decel time 131 ms --------- PHT 57 ms --------- Mean grad, D 3.2 mm Hg --------- Peak grad, D 7.6 mm Hg --------- Peak E/A ratio 0.8 --------- MVA, PHT 3.9 cm 2 --------- Pulmonic valve Value Ref SC v, ED 0.8 m/sec --------- Tricuspid valve Value Ref TR peak v 2.74 m/sec <=2.8 Peak RV-RA 30 mm Hg --------- grad, S Aortic root Value Ref Root diam, ED 2.46 cm --------- MM Conclusions Summary: 1. Left ventricle: The cavity size is normal. Wa ll thickness is normal. Systolic function is normal. The estimated ejec tion fraction is 55-60%. Wall motion is normal; there are no reg ional wall motion abnormalities. Doppler parameters are consisten t with abnormal left ventricular relaxation (grade 1 diastolic dysfu nction). 2. Right ventricle: Systolic pressure is at the upper limits of normal. 3. Left atrium: The atrium is dilated. The end-s ystolic volume index (2-plane Tejeda's) is 38 ml/m 2. 4. Mitral valve: The annulus is mildly calcified . There is mild regurgitation. 5. Tricuspid valve: Estimated right ventricle sy stolic pressure is 35.23 mmHg. There is mild-moderate regurgitation. 6. Pulmonic valve: There is trivial regurgitatio n. PATIENT NAME: FALGUNI AGARWAL 89 Prepared and electronically signed by Kenton Lance MD 01/13/2022 20:51 Electronically Signed by Kenton Lance MD on 0 01/13/22 at 2051 PATIENT NAME: FALGUNI AGARWAL 590 2022-01-13 13:21:00-00:00 [facility] Clinical Note REPORT#:[id number] REPORT STATUS: Signed DATE:01/13/22 TIME: 132 PATIENT: FALGUNI AGARWAL UNIT #: [id number] ROOM/BED: [place] [address] : 39 AGE: 81 SEX: F ATTEND: Kimo Gill MD ADM AUTHOR: Alexis Manriquez NP * ALL edits or amendments must be made on the [employer]/computer document * Clinical Note Note: Pt's left groin site soft, ZACK drain note. Telemetry shows normal sinus rhythm. SBP 150s Daugther is at bedside. Update pt's status w/ her daughter. Electronically Signed by Alexis Manriquez NP on at 1322 RPT #:[id number] END OF REPORT 2022-01-13 13:21:00-00:00 [facility] ([facility]) Clinical Note REPORT#:[id number] REPORT STATUS: Signed DATE:01/13/22 TIME: 132 PATIENT: FALGUNI AGARWAL UNIT #: [id number] ROOM/BED: [place] [address] : 39 AGE: 81 SEX: F ATTEND: Kimo Gill MD ADM AUTHOR: Alexis Manriquez NP * ALL edits or amendments must be made on the [employer] document * Clinical Note Note: Pt's left groin site soft, ZACK drain note. Telemetry shows normal sinus rhythm. SBP 150s Daugther is at bedside. Update pt's status w/ her daughter. Electronically Signed by Alexis Manriquez NP on at 1322 Electronically Signed by Kenton Lance MD on at 2055 RPT #:[id number] END OF REPORT 2022-01-13 10:43:00-00:00 [facility]) Hospitalist History Physical REPORT#:[id number] REPORT STATUS: Signed DATE:01/13/22 TIME: 1043 PATIENT: FALGUNI AGARWAL UNIT #: [id number] ROOM/BED: [place] [address] : 39 AGE: 81 SEX: F ATTEND: Kimo Gill MD ADM AUTHOR: Rosa Oscar MD * ALL edits or amendments must be made on the [employer] document * History of Present Illness HPI Chief complaint: left femoral hematoma HPI: 81 years old female with PMH CAD with stents , C KD3 , Hx of lung cancer had elective cath yesterday . she developed hematoma on the left femoral site and hypotension . she was given blood transfusion . vascular surgeon was consulted . she had repair sugery yesterday . she was admitt ed to the CCU . now she feel well . no cp no sob no dizziness no nausea no vo miting History Family History Family history: Reports: Heart disease (mother, sister, brother) . Social History Alcohol use: Denies EtOH use Drug use: Denies recreational drugs Smoking status: Smoking status for patients 13 years old or old er: Former Smoker Date last smoked: 06/05/92 Packs per day: 1 Years smoked: 25 Pack years: 25 Medication/Allergy-Vaccine Hx Allergies: Coded Allergies: morphine (Severe, RASH 12/14/21) Review of Systems Constitutional: Denies: fatigue, fever, generalized weakness, le thargy. ENT: Denies: sore throat. Respiratory: Denies: productive cough (sputum), SOB, wheezing . Cardiovascular: Denies: chest pain, SHAH (dyspnea on exertion), e pina, orthopnea. GI: Denies: abdominal pain, hematemesis, hematochezi a, nausea, vomiting. : Denies: dysuria, flank pain, frequency, hematuri a. Neuro: Denies: dizziness, headache. Physical Exam VS/I O: Vital Signs Date Temp Pulse Resp B/P B/P Mean Pulse Ox FiO2 01/12-01/13 36.7-37.2 79-98 28-48 92-192/53-92 72-122 97-100 21-100 Last Documented: Result Date Time Pulse Ox 97 01/13 09 FiO2 21 01/13 0922 O2 Delivery Room air 01/13 09 Pulse 95 01/13 0403 Temp 36.7 01/13 0400 B/P 165/61 01/13 0252 B/P Mean 103 01/13 0252 Resp 46 01/13 0252 24 hour I O ending at 0700: 01/13 0700 01/12 1900 Intake Total 1611.00 Output Total 1025 Balance 586.00 Intake, IV 1611.00 Number 0 Bowel Movements Output, 100 Drainage Output, 525 Gastric Drainage Output, Urine 400 Patient 49 kg Weight Weight Stated/Reported Measurement Method Patient Weight and BMI Weight (kg): 49.000 BMI: 23.4 General appearance: alert, awake, oriented, no a cute distress Head/Eyes: atraumatic, normal conjunctiva/sclera , normal eyelids/periorb., normocephalic Neck: full range of motion, normal thyroid, no J VD Cardiovascular: normal heart sounds, regular rat e rhythm Respiratory: aerating well, clear to auscultatio n Abdomen: non-tender, normal bowel sounds, soft, no distention Extremities: moves all, no calf tenderness, no e pina (left groin hematoma ) 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, oriented X 3, CNII-XII intact, normal speech, no motor deficits, no sensory deficits Skin: no rash Results Findings/Data: Laboratory Tests: 01/13 01/13 01/13 1030 0415 0413 Blood Gas Puncture Site Art Line O2 Saturation (90 - 100 %) 99.1 ABG pH (7.35 - 7.45) 7.318 L ABG pCO2 (35.0 - 45 mmHg) 35.6 ABG pO2 (80 - 100.0 mmHg) 148.4 H ABG PO2/FiO2 Ratio (mm/Hg) 371.00 ABG HCO3 (22.0 - 26.0 MMOL/L) 18.2 L ABG Total CO2 19.2 ABG Base Excess (-4.0 - 4.0 MMOL/L) -7.9 L ABG Hematocrit (33.0 - 45.0 %) 21 L ABG Hemoglobin (11.0 - 15.0 G/DL) 7.0 L Sodium (134 - 147 MEQ/L) 143 Potassium (3.4 - 5.0 MEQ/L) 4.3 Chloride (100 - 108 MEQ/L) 115 H Ionized Calcium (1.12 - 1.32 MMOL/L) 1.09 L Lactic Acid (0.9 - 1.7 mmol/l) 0.7 L Temperature (F) 99.2 O2 Delivery Device Adult Vent Vent Mode AC Vent Rate (/MIN) 14 FiO2 (%) 40 Tidal Volume (ml) 400 PEEP (cmH2O) 5 Chemistry Sodium (134 - 147 mEq/L) 141 Potassium (3.4 - 5.0 mEq/L) 4.2 Chloride (100 - 108 mEq/L) 116 H Carbon Dioxide (21 - 33 mEq/l) 20 L Anion Gap (0 - 20) 9 BUN (7 - 18 mg/dL) 23 H Creatinine (0.6 - 1.3 mg/dL) 1.4 H POC Creatinine (0.6 - 1.0 mg/dL) 1.5 H Glomerular Filtr Rate (70 - 80) 36.0 L Glucose (70 - 110 mg/dL) 125 H POC Glucose (mg/dL) (70 - 110 MG/DL) 119 H Calcium (8.0 - 10.5 mg/dL) 7.2 L Ionized Calcium Racquel (1.09 - 1.30 MMOL/L) 1.13 Phosphorus (2.5 - 4.9 MG/DL) 3.9 Magnesium (1.80 - 2.40 mg/dL) 1.72 L Hematology WBC (4.5 - 11.0 x10 3/uL) 14.6 H 14.9 H RBC (3.54 - 5.02 x10 6/uL) 2.32 L 2.37 L Hgb (11.0 - 15.0 g/dL) 7.3 L 7.3 L Hct (33.0 - 45.0 %) 21.2 L 22.0 L MCV (81.0 - 99.0 fL) 91.4 92.8 MCH (27.0 - 33.0 pg) 31.5 30.8 MCHC (33.0 - 37.0 g/dL) 34.4 33.2 RDW (11.5 - 14.5 %) 18.4 H 17.8 H Plt Count (150 - 400 x10 3/uL) 212 203 MPV (7.0 - 9.0 fL) 11.4 H 11.6 H Neut % (Auto) (56.0 - 77.0 %) 82.1 H 84.6 H Lymph % (Auto) (14.0 - 32.0 %) 7.6 L 6.9 L Falls % (Auto) (4.8 - 9.0 %) 9.3 H 7.6 Eos % (Auto) (0.3 - 3.7 %) 0.1 L 0.0 L Baso % (Auto) (0.0 - 2.0 %) 0.4 0.3 Neut # (Auto) (2.0 - 7.6 x10 3/uL) 11.96 H 12.6 0 H Lymph # (Auto) (1.0 - 3.8 x10 3/uL) 1.11 1.03 Falls # (Auto) (0.1 - 0.8 x10 3/uL) 1.35 H 1.13 H Eos # (Auto) (0.0 - 0.2 x10 3/uL) 0.01 0.00 Baso # (Auto) (0.0 - 0.2 x10 3/uL) 0.06 0.05 Abs Immat Gran (auto) (0.00 - 0.03 x10 3/uL) 0. 07 H 0.09 H Add Manual Diff NO NO Immature Gran % (0.0 - 2.0 %) 0.5 0.6 Nucleated RBC % (0 - 0 %) 0.0 0.0 Nucleated RBCs # (Man) (0.0 - 0.1 x10 3/uL) 0.0 0 0.00 01/13 01/12 01/12 0139 2210 2124 Blood Gas Puncture Site Art Line Art Line Art Line O2 Saturation (90 - 100 %) 99.5 97.7 100.0 ABG pH (7.35 - 7.45) 7.301 L 7.289 *L 7.249 *L ABG pCO2 (35.0 - 45 mmHg) 39.0 38.2 44.5 ABG pO2 (80 - 100.0 mmHg) 184.3 H 108.8 H 449.8 *H ABG PO2/FiO2 Ratio (mm/Hg) 368.60 ABG HCO3 (22.0 - 26.0 MMOL/L) 19.2 L 18.4 L 19. 5 L ABG Total CO2 20.4 19.6 20.9 ABG Base Excess (-4.0 - 4.0 MMOL/L) -7.2 L -8.3 L -7.8 L ABG Hematocrit (33.0 - 45.0 %) 23 L 26 L 27 L ABG Hemoglobin (11.0 - 15.0 G/DL) 7.7 L 8.9 L 9 .1 L Sodium (134 - 147 MEQ/L) 142 140 141 Potassium (3.4 - 5.0 MEQ/L) 4.5 4.8 4.9 Chloride (100 - 108 MEQ/L) 114 H 113 H 113 H Ionized Calcium (1.12 - 1.32 MMOL/L) 1.12 1.12 1.13 Lactic Acid (0.9 - 1.7 mmol/l) 0.5 L 0.8 L 1.0 Temperature (F) 99.1 98 98 O2 Delivery Device Adult Vent Adult Vent Adult Vent Vent Mode AC Vent Rate (/MIN) 14 FiO2 (%) 50 Tidal Volume (ml) 400 PEEP (cmH2O) 5 Chemistry POC Creatinine (0.6 - 1.0 mg/dL) 1.6 H 1.5 H 1. 6 H POC Glucose (mg/dL) (70 - 110 MG/DL) 116 H 163 H 154 H 01/12 153 Blood Gas O2 Saturation (90 - 100 %) 69.6 L ABG pH (7.35 - 7.45) 7.140 *L ABG pCO2 (35.0 - 45 mmHg) 56.1 *H ABG pO2 (80 - 100.0 mmHg) 47.6 *L ABG HCO3 (22.0 - 26.0 MMOL/L) 19.1 L ABG Total CO2 20.8 ABG Base Excess (-4.0 - 4.0 MMOL/L) -10.0 L ABG Hematocrit (33.0 - 45.0 %) 32 L ABG Hemoglobin (11.0 - 15.0 G/DL) 11.0 Sodium (134 - 147 MEQ/L) 138 Potassium (3.4 - 5.0 MEQ/L) 5.6 H Chloride (100 - 108 MEQ/L) 112 H Ionized Calcium (1.12 - 1.32 MMOL/L) 1.16 Lactic Acid (0.9 - 1.7 mmol/l) 0.9 Chemistry Sodium (134 - 147 mEq/L) 136 Potassium (3.4 - 5.0 mEq/L) 5.1 H Chloride (100 - 108 mEq/L) 109 H Carbon Dioxide (21 - 33 mEq/l) 19 L Anion Gap (0 - 20) 13 BUN (7 - 18 mg/dL) 23 H Creatinine (0.6 - 1.3 mg/dL) 1.5 H POC Creatinine (0.6 - 1.0 mg/dL) 1.5 H Glomerular Filtr Rate (70 - 80) 33.2 L Glucose (70 - 110 mg/dL) 171 H POC Glucose (mg/dL) (70 - 110 MG/DL) 190 H Calcium (8.0 - 10.5 mg/dL) 7.6 L Total Bilirubin (0.0 - 1.0 mg/dL) 0.60 AST (15 - 37 IUnit/L) 29 ALT (30 - 65 IUnit/L) 13 L Total Alk Phosphatase (20 - 125 IUnit/L) 56 Total Protein (6.4 - 8.2 g/dL) 5.6 L Albumin (3.4 - 5.0 g/dL) 3.00 L Coagulation Activated Coag Time (74 - 137 SEC) 178 H Hematology WBC (4.5 - 11.0 x10 3/uL) 16.8 H RBC (3.54 - 5.02 x10 6/uL) 3.15 L Hgb (11.0 - 15.0 g/dL) 9.6 L Hct (33.0 - 45.0 %) 28.9 L MCV (81.0 - 99.0 fL) 91.7 MCH (27.0 - 33.0 pg) 30.5 MCHC (33.0 - 37.0 g/dL) 33.2 RDW (11.5 - 14.5 %) 16.1 H Plt Count (150 - 400 x10 3/uL) 319 MPV (7.0 - 9.0 fL) 11.3 H Neut % (Auto) (56.0 - 77.0 %) 87.6 H Lymph % (Auto) (14.0 - 32.0 %) 6.9 L Falls % (Auto) (4.8 - 9.0 %) 4.4 L Eos % (Auto) (0.3 - 3.7 %) 0.1 L Baso % (Auto) (0.0 - 2.0 %) 0.5 Neut # (Auto) (2.0 - 7.6 x10 3/uL) 14.75 H Lymph # (Auto) (1.0 - 3.8 x10 3/uL) 1.16 Falls # (Auto) (0.1 - 0.8 x10 3/uL) 0.74 Eos # (Auto) (0.0 - 0.2 x10 3/uL) 0.02 Baso # (Auto) (0.0 - 0.2 x10 3/uL) 0.09 Abs Immat Gran (auto) (0.00 - 0.03 x10 3/uL) 0. 08 H Add Manual Diff NO Immature Gran % (0.0 - 2.0 %) 0.5 Nucleated RBC % (0 - 0 %) 0.0 Nucleated RBCs # (Man) (0.0 - 0.1 x10 3/uL) 0.0 0 01/12 01/12 01/12 1530 1237 1224 Coagulation Activated Coag Time (74 - 137 SEC) 254 H 231 H Hematology WBC (4.5 - 11.0 x10 3/uL) 12.2 H RBC (3.54 - 5.02 x10 6/uL) 2.15 L Hgb (11.0 - 15.0 g/dL) 6.9 L Hct (33.0 - 45.0 %) 21.3 L MCV (81.0 - 99.0 fL) 99.1 H MCH (27.0 - 33.0 pg) 32.1 MCHC (33.0 - 37.0 g/dL) 32.4 L RDW (11.5 - 14.5 %) 14.2 Plt Count (150 - 400 x10 3/uL) 300 MPV (7.0 - 9.0 fL) 11.7 H Neut % (Auto) (56.0 - 77.0 %) 77.9 H Lymph % (Auto) (14.0 - 32.0 %) 12.3 L Falls % (Auto) (4.8 - 9.0 %) 6.3 Eos % (Auto) (0.3 - 3.7 %) 2.4 Baso % (Auto) (0.0 - 2.0 %) 0.7 Neut # (Auto) (2.0 - 7.6 x10 3/uL) 9.50 H Lymph # (Auto) (1.0 - 3.8 x10 3/uL) 1.50 Falls # (Auto) (0.1 - 0.8 x10 3/uL) 0.77 Eos # (Auto) (0.0 - 0.2 x10 3/uL) 0.29 H Baso # (Auto) (0.0 - 0.2 x10 3/uL) 0.08 Abs Immat Gran (auto) (0.00 - 0.03 x10 3/uL) 0. 05 H Add Manual Diff NO Immature Gran % (0.0 - 2.0 %) 0.4 Nucleated RBC % (0 - 0 %) 0.0 Nucleated RBCs # (Man) (0.0 - 0.1 x10 3/uL) 0.0 0 Laboratory Tests 01/13/22 1030: [Embedded Image Not Available] 01/13/22 0415: [Embedded Image Not Available] 01/12/22 2008: [Embedded Image Not Available] 01/12/22 1530: [Embedded Image Not Available] Radiology data: Recent Impressions: CAT SCAN - CTA ABD PEL W CONT 01/12 077 Report Impression - Status: SIGNED Entered: 01/12/2022 6110 IMPRESSION: 1. No evidence for aneurysm or dissection of the abdominal aorta. Heavy vascular calcification. Moderate proximal renal arterial stenosis. 2. Large area of edema, swelling and stranding w ith 7.0 x 5.1 x 12.7 cm mass extending from the left groin to th e left upper thigh, probably soft tissue hemorrhage and hematoma. 1. 5 x 0.7 cm elongated hypodense area anterior to the GARAGE MANAGER bif urcation may represent pseudoaneurysm versus contrast extrava sation. 3. Small and atrophy kidneys with cortical scar, nephrolithiasis in heavy intrarenal vascular calcification. No hydr onephrosis. Left renal cyst. 4. Reticulonodular opacities in bilateral lower lobes may represent infectious/inflammatory process in appropriate c linical setting. 5. Additional incidental and chronic findings as above. Impression By: [email or web address] Keegan Son M.D. ULTRASOUND - [facility] [employer] 01/13 2120 Report Impression - Status: SIGNED Entered: 01/12/2022 2217 IMPRESSION: There is no arterial pseudoaneurysm detected. Impression By: [email or web address] Keegan Knight D.O. RADIOLOGY - XR CHEST 1 V 01/12 2122 Report Impression - Status: SIGNED Entered: 01/12/2022 2215 IMPRESSION: 1. There is a right mainstem bronchus intubation . The endotracheal tube terminates 1.8 cm deep to the юлия. Retra ction of 5-6 cm is recommended for optimal position. 2. There is a new small left pleural effusion. T here is no pneumothorax. 3. There is mild right infrahilar pulmonary opac ity. There is moderate reticulonodular opacity in mid and uppe r lung. These areas are suspicious for pneumonia. Impression By: [email or web address] Keegan Knight D.O. RADIOLOGY - XR CHEST 1 V 01/12 2353 Report Impression - Status: SIGNED Entered: 01/13/2022 0043 IMPRESSION: 1. Left perihilar airspace disease with blunting the left costophrenic angle suggesting pleural thickening versus small effusion. 2. Support devices as noted above. Impression By: [email or web address] Keegan Ramirez M.D Diagnosis, Assessment Plan Free Text A P: hemorrhage from left femoral artery anemia due to acute blood loss acute respiratory failure --post procedure CAD CKD3 HTN hypothyroid hemorrhage from left femoral artery anemia due to acute blood loss vascular surgeon consult -- repair artery --yes terday monitor in CCU transfuse 2 units RBBC monitor H H -- transfuse if < 7 respiratory failure post procedure -- now resolve extubated in the CCU CAD with stents cardiology consult ASA/plavix as cardiology CKD-- stable HTN-- continue cozaar and metoprolol stable hypothyroid-- continue home med Consultants: cardiology, cardiovascular surgery, colorectal surgery Quality: Gen Med Crit Care Current Medications Current medication review: Current Medications Sig/Brandi Start time Last Medication Dose Route Stop Time Status Admin Calcium Gluconate/ 50 ML ONCE ONE 01/13 1115 DC 01/13 Sodium Chloride IV 01/13 1124 1204 Aspirin 81 MG DAILY 01/13 900 AC 01/13 PO 02/12 0859 0829 Clopidogrel Bisulfate 75 MG DAILY 01/13 900 AC 01/13 PO 02/12 0859 0828 Docusate Sodium 100 MG BID 01/13 900 AC 01/13 PO 02/12 0859 0829 Losartan Potassium 25 MG DAILY 01/13 09 AC PO 02/12 0859 0829 Metoprolol Tartrate 50 MG BID 01/13 09 AC PO 02/11 1544 0829 Polyethylene Glycol 17 GM DAILY 01/13 0900 AC 0 01/13 PO 02/12 0859 0828 Levothyroxine Sodium 50 MCG DAILY 0600 01/13 06 00 AC 01/13 PO 02/12 0559 0828 Calcium Gluconate/ 100 ML ONCE ONE 01/13 0530 D C 01/13 Sodium Chloride IV 01/13 0549 0622 Magnesium Sulfate 100 ML ONCE ONE 01/13 0530 DC 01/13 IV 01/13 0929 0622 Sodium Bicarbonate 50 MEQ ONCE ONE 01/13 0530 D C 01/13 IV 01/13 0531 0621 Albumin Human 250 ML Q1H 01/12 2230 DC 01/13 IV 01/12 2359 0058 Sodium Chloride 250 ML ONCE ONE 01/12 2215 AC 01/13 IV 01/23 0814 0043 Fentanyl Citrate 50 MCG ONCE ONE 01/12 2145 DC 01/12 IV 01/12 2146 215 Fentanyl Citrate 50 MCG ONCE ONE 01/12 2115 DC IV 01/13 2116 Fentanyl Citrate 0 .STK-MED ONE 01/12 2107 DC 0 01/12 IV 211 Atorvastatin Calcium 40 MG BEDTIME 01/12 2100 A C PO 02/11 2059 Mupirocin 1 APPLIC BID 01/12 2100 AC 01/13 NASAL 01/17 0901 0829 Topiramate 25 MG BID 01/12 2100 AC 01/13 PO 02/11 Glycopyrrolate 0 .STK-MED ONE 01/12 193 DC .ROUTE Neostigmine 0 .STK-MED ONE 01/12 193 DC Methylsulfate .ROUTE Cefazolin Sodium 0 .STK-MED ONE 01/12 1848 DC .ROUTE Heparin Sodium 0 .STK-MED ONE 01/12 184 DC .ROUTE Fentanyl Citrate 0 .STK-MED ONE 01/12 1820 DC .ROUTE Etomidate 0 .STK-MED ONE 01/12 181 DC IV Propofol 20 ML .STK-MED ONE 01/12 181 DC IV Rocuronium Rex 0 .STK-MED ONE 01/12 181 DC IV Succinylcholine 0 .STK-MED ONE 01/12 181 DC Chloride IV Iopamidol 100 ML .STK-MED ONE 01/12 1759 DC IV 01/12 1800 1759 Heparin Sodium 0 .STK-MED ONE 01/12 1747 DC .ROUTE Thrombin 0 .STK-MED ONE 01/12 1747 DC TOPICAL Tramadol HCl 50 MG Q6H PRN PRN 01/12 1430 DC PO 01/17 1429 Atropine Sulfate 0.5 MG ASDIR PRN 01/12 1330 DC 01/12 IV 01/13 1324 1653 Sodium Chloride 1,000 ML .[id number] 01/12 1330 DC IV 01/13 0249 Sodium Chloride 500 ML ASDIR PRN 01/12 1330 DC IV 01/13 1324 Home Medications: CLOPIDOGREL (PLAVIX) 75 MG PO DAILY TOPIRAMATE (TOPAMAX) 25 MG PO BID OMEPRAZOLE ER 20 MG PO DAILY METOPROLOL TARTRATE (LOPRESSOR) 50 MG PO BID LOSARTAN (COZAAR) 25 MG PO DAILY [PROLIA] 60 MG SUBQ EVERY 6 MOS traMADol (ULTRAM) 50 MG PO Q6H PRN PRN ACUTE AMADOU N ASPIRIN 81 MG PO DAILY LEVOTHYROXINE (SYNTHROID) 50 MCG PO DAILY ATORVASTATIN (LIPITOR) 40 MG PO BEDTIME I attest that the foregoing medication list in t medical record is true, accurate, and complete to the best of my knowled ge. Electronically Signed by Rosa Oscar MD on 2 at 1745 [facility] #:[id number] END OF REPORT 2022-01-13 07:10:00-00:00 [facility]ACL [facility] ([facility] Cardiology Progress Note REPORT#:[id number] REPORT STATUS: Signed DATE:01/13/22 TIME: 709 PATIENT: FALGUNI AGARWAL UNIT #: [id number] ROOM/BED: [place] [address] : 39 AGE: 81 SEX: F ATTEND: Kimo Gill MD ADM AUTHOR: Kenton Lance MD * ALL edits or amendments must be made on the [employer]/computer document * Subjective Chief complaint: No change HPI: Mrs. Agarwal is an 81 y/o F w/ PMHx: HTN, CAD s/p RCA x 3 stents in December 2021, OA, CKD stage III, Lung can on remission present s to [facility] for elective LHC. 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 Her left femoral site intermittent hematoma and RN has be en holding pressure intermittent. Currently, SBP 110's w/ IVF going. Dr. Weaver is at bedside. Telemetry shows nsr. Patient denied chest discom fort, no sob, no palpitation. Daughter reports pt had UTI and Covid last week which she completed the treatment. Objective General VS/I O: 24 hour I O ending at 0700: 01/13 0700 01/12 1900 Intake Total 1611.00 Output Total 1025 Balance 586.00 Intake, IV 1611.00 Number 0 Bowel Movements Output, 100 Drainage Output, 525 Gastric Drainage Output, Urine 400 Patient 49 kg Weight Weight Stated/Reported Measurement Method Vital Signs: Date Time Temp Pulse Resp B/P B/P Pulse O2 O2 F low FiO2 Mean Ox Delivery Rate 01/13 0403 95 100 50 01/13 040 98.0 01/13 0252 98 46 165/61 103 100 01/13 0245 93 33 169/62 107 100 01/13 0230 167/62 104 01/13 0230 93 30 136/92 107 100 01/13 0215 95 38 156/59 96 100 01/13 0200 164/61 104 08/11 0200 93 35 146/69 96 100 08/11 0145 96 36 166/64 107 100 08/11 0130 160/60 100 08/11 0130 87 30 162/78 110 100 08/11 0115 82 28 169/63 106 100 08/11 0101 144/57 90 08/11 0101 90 32 92/63 72 100 08/11 0100 94 45 148/58 93 100 08/11 0050 80 100 50 08/11 0045 81 43 164/57 100 100 08/11 0032 162/56 98 08/11 0032 81 48 188/77 110 100 08/11 0030 85 40 158/53 95 100 08/11 0015 176/71 113 08/11 0015 81 36 181/81 117 100 08/11 0000 98.0 08/11 0000 79 28 175/69 111 100 08/10 2345 84 33 172/70 111 100 08/10 2330 190/75 122 08/10 2330 86 45 192/84 120 100 08/10 2315 173/69 111 08/10 2315 79 38 170/80 115 100 08/10 2115 99.0 08/10 2115 Ventilator 100 08/10 1 100 Ventilator 100 08/10 2031 80 100 100 08/10 0749 98.0 77 18 161/70 100 PATIENT WEIGHT: Weight (lb): 108 Weight (oz): 0.42 Weight (kg): 49.000 Medications: Active Meds + DC'd Last 24 Hrs Aspirin (ASPIRIN) 81 MG DAILY PO Clopidogrel Bisulfate (Plavix) 75 MG DAILY PO Docusate Sodium (COLACE) 100 MG BID PO Losartan Potassium (COZAAR) 25 MG DAILY PO Metoprolol Tartrate (LOPRESSOR) 50 MG BID PO Polyethylene Glycol (MIRALAX) 17 GM DAILY PO Levothyroxine Sodium (Synthroid) 50 MCG DAILY 06 00 PO Calcium Gluconate/Sodium Chloride (Calcium Gluco carmen 2 GM/NS 100 mL) 100 ML ONCE ONE IV (DC) Magnesium Sulfate (MAGNESIUM SULFATE 4GM/SWFI 10 0ML) 100 ML ONCE ONE IV Sodium Bicarbonate (SODIUM BICARBONATE) 50 MEQ O NCE ONE IV (DC) Albumin Human (ALBUMINAR 5% 12.5GM/250ML) 250 ML Q1H IV (DC) Sodium Chloride (SODIUM CHLORIDE 0.9%) 250 ML ON CE ONE IV Fentanyl Citrate (SUBLIMAZE) 50 MCG ONCE ONE IV (DC) Fentanyl Citrate (SUBLIMAZE) 50 MCG ONCE ONE IV (DC) Fentanyl Citrate (SUBLIMAZE) 0 .STK-MED ONE IV ( DC) Atorvastatin Calcium (LIPITOR) 40 MG BEDTIME PO Metoprolol Tartrate (LOPRESSOR) 50 MG BID PO (DC ) Mupirocin (BACTROBAN 2% 22 GM OINTMENT) 1 APPLIC BID NASAL Topiramate (TOPAMAX) 25 MG BID PO Glycopyrrolate (GLYCOPYRROLATE) 0 .STK-MED ONE . ROUTE (DC) Neostigmine Methylsulfate (PROSTIGMIN) 0 .STK-ME D ONE .ROUTE (DC) Cefazolin Sodium (KEFZOL OR ANCEF) 0 .STK-MED ON E .ROUTE (DC) Heparin Sodium (HEPARIN SODIUM) 0 .STK-MED ONE . ROUTE (DC) Fentanyl Citrate (SUBLIMAZE) 0 .STK-MED ONE .ROU TE (DC) Etomidate (AMIDATE) 0 .STK-MED ONE IV (DC) Propofol (DIPRIVAN 200MG/20ML INJECTION) 20 ML . STK-MED ONE IV (DC) Rocuronium Rex (ZEMURON) 0 .STK-MED ONE IV ( DC) Succinylcholine Chloride (QUELICIN FLIPTOP) 0 .S TK-MED ONE IV (DC) Iopamidol (ISOVUE-370 100ML) 100 ML .STK-MED ONE IV (DC) Heparin Sodium (HEPARIN SODIUM) 0 .STK-MED ONE . ROUTE (DC) Thrombin (RECOTHROM) 0 .STK-MED ONE TOPICAL (DC) Ondansetron HCl (ZOFRAN) 0 .STK-MED ONE IV (DC) Fentanyl Citrate (SUBLIMAZE) 0 .STK-MED ONE .ROU TE (DC) Fentanyl Citrate (SUBLIMAZE) 0 .STK-MED ONE .ROU TE (DC) Tramadol HCl (ULTRAM) 50 MG Q6H PRN PRN PO (DC) Atropine Sulfate (ATROPINE SULFATE 0.1MG/ML SYR) 0.5 MG ASDIR PRN IV Sodium Chloride (SODIUM CHLORIDE 0.9%) 1,000 ML .[id number] IV (DC) Sodium Chloride (SODIUM CHLORIDE 0.9%) 500 ML DIR PRN IV Adenosine (ADENOSCAN) 0 .STK-MED ONE IV (DC) Sodium Chloride (SODIUM CHLORIDE 0.9%) 50 ML .ST K-MED ONE IV (DC) Fentanyl Citrate (SUBLIMAZE) 0 .STK-MED ONE .RO TERE (DC) Midazolam HCl (VERSED) 0 .STK-MED ONE .ROUTE (DC ) Verapamil HCl (ISOPTIN) 0 .STK-MED ONE IV (DC) Heparin Sodium (HEPARIN SODIUM) 0 .STK-MED ONE .ROUTE (DC) Heparin Sodium/Sodium Chloride (HEPARIN 2,000 UN ITS/NS 1,000mL) 1,000 ML .STK-MED ONE IV (DC) Heparin Sodium/Sodium Chloride (HEPARIN 1,000 UN ITS/NS 500ML) 500 ML .STK- MED ONE IV (DC) Iopamidol (ISOVUE-370 200ML) 0 .STK-MED ONE IV ( DC) Lidocaine HCl (XYLOCAINE 2%) 0 .STK-MED ONE .ROU TE (DC) Nitroglycerin/Dextrose (NITROGLYCERIN 50,000MCG/ D5W 250ML) 250 ML .STK-MED ONE IV (DC) Physical Exam General appearance: sleeping comfortably Neck: full range of motion, non-tender, normal thyroid, supple/no meningismus, no bruit/NL carotids, no JVD, no lymphadenopathy , no masses or swelling Cardiovascular: CV assessment: regular rate and rhythm Respiratory: clear to auscultation, no distress Abdomen: non-tender, normal bowel sounds , no distention, no guarding, no mass/ organomegaly, no pulsatile mass, no rebound Results Findings/Data: Laboratory Tests 01/13 01/13 01/12 9224 3319 3427 Blood Gas Puncture Site Art Line Art Line Art Line O2 Saturation (90 - 100 %) 99.1 99.5 97.7 ABG pH (7.35 - 7.45) 7.318 L 7.301 L 7.289 *L ABG pCO2 (35.0 - 45 mmHg) 35.6 39.0 38.2 ABG pO2 (80 - 100.0 mmHg) 148.4 H 184.3 H 108. 8 H ABG PO2/FiO2 Ratio (mm/Hg) 371.00 368.60 ABG HCO3 (22.0 - 26.0 MMOL/L) 18.2 L 19.2 L 18. 4 L ABG Total CO2 19.2 20.4 19.6 ABG Base Excess (-4.0 - 4.0 MMOL/L) -7.9 L -7.2 L -8.3 L ABG Hematocrit (33.0 - 45.0 %) 21 L 23 L 26 L ABG Hemoglobin (11.0 - 15.0 G/DL) 7.0 L 7.7 L 8 .9 L Sodium (134 - 147 MEQ/L) 143 142 140 Potassium (3.4 - 5.0 MEQ/L) 4.3 4.5 4.8 Chloride (100 - 108 MEQ/L) 115 H 114 H 113 H Ionized Calcium (1.12 - 1.32 MMOL/L) 1.09 L 1.1 2 1.12 Lactic Acid (0.9 - 1.7 mmol/l) 0.7 L 0.5 L 0.8 L Temperature (F) 99.2 99.1 98 O2 Delivery Device Adult Vent Adult Vent Adult Vent Vent Mode AC AC Vent Rate (/MIN) 14 14 FiO2 (%) 40 50 Tidal Volume (ml) 400 400 PEEP (cmH2O) 5 5 01/12 1941 Blood Gas Puncture Site Art Line O2 Saturation (90 - 100 %) 100.0 69.6 L ABG pH (7.35 - 7.45) 7.249 *L 7.140 *L ABG pCO2 (35.0 - 45 mmHg) 44.5 56.1 *H ABG pO2 (80 - 100.0 mmHg) 449.8 *H 47.6 *L ABG HCO3 (22.0 - 26.0 MMOL/L) 19.5 L 19.1 L ABG Total CO2 20.9 20.8 ABG Base Excess (-4.0 - 4.0 MMOL/L) -7.8 L -10. 0 L ABG Hematocrit (33.0 - 45.0 %) 27 L 32 L ABG Hemoglobin (11.0 - 15.0 G/DL) 9.1 L 11.0 Sodium (134 - 147 MEQ/L) 141 138 Potassium (3.4 - 5.0 MEQ/L) 4.9 5.6 H Chloride (100 - 108 MEQ/L) 113 H 112 H Ionized Calcium (1.12 - 1.32 MMOL/L) 1.13 1.16 Lactic Acid (0.9 - 1.7 mmol/l) 1.0 0.9 Temperature (F) 98 O2 Delivery Device Adult Vent Laboratory Tests 01/13 01/13 01/13 01/12 01/12 0415 0413 0138 3219 6666 Chemistry Sodium (134 - 147 mEq/L) 141 Potassium (3.4 - 5.0 mEq/L) 4.2 Chloride (100 - 108 mEq/L) 116 H Carbon Dioxide (21 - 33 mEq/l) 20 L Anion Gap (0 - 20) 9 BUN (7 - 18 mg/dL) 23 H Creatinine (0.6 - 1.3 mg/dL) 1.4 H POC Creatinine (0.6 - 1.0 mg/dL) 1.5 H 1.6 H 1. 5 H 1.6 H Glomerular Filtr Rate (70 - 80) 36.0 L Glucose (70 - 110 mg/dL) 125 H POC Glucose (mg/dL) (70 - 110 MG/DL) 119 H 116 H 163 H 154 H Calcium (8.0 - 10.5 mg/dL) 7.2 L Ionized Calcium Racquel (1.09 - 1.30 MMOL/L) 1.13 Phosphorus (2.5 - 4.9 MG/DL) 3.9 Magnesium (1.80 - 2.40 mg/dL) 1.72 L 01/12 Chemistry Sodium (134 - 147 mEq/L) 136 Potassium (3.4 - 5.0 mEq/L) 5.1 H Chloride (100 - 108 mEq/L) 109 H Carbon Dioxide (21 - 33 mEq/l) 19 L Anion Gap (0 - 20) 13 BUN (7 - 18 mg/dL) 23 H Creatinine (0.6 - 1.3 mg/dL) 1.5 H POC Creatinine (0.6 - 1.0 mg/dL) 1.5 H Glomerular Filtr Rate (70 - 80) 33.2 L Glucose (70 - 110 mg/dL) 171 H POC Glucose (mg/dL) (70 - 110 MG/DL) 190 H Calcium (8.0 - 10.5 mg/dL) 7.6 L Total Bilirubin (0.0 - 1.0 mg/dL) 0.60 AST (15 - 37 IUnit/L) 29 ALT (30 - 65 IUnit/L) 13 L Total Alk Phosphatase (20 - 125 IUnit/L) 56 Total Protein (6.4 - 8.2 g/dL) 5.6 L Albumin (3.4 - 5.0 g/dL) 3.00 L Laboratory Tests 01/12 1237 1224 Coagulation Activated Coag Time (74 - 137 SEC) 178 H 254 H 231 H Laboratory Tests 01/13 Hematology WBC (4.5 - 11.0 x10 3/uL) 14.9 H 16.8 H 12.2 H RBC (3.54 - 5.02 x10 6/uL) 2.37 L 3.15 L 2.15 L Hgb (11.0 - 15.0 g/dL) 7.3 L 9.6 L 6.9 L Hct (33.0 - 45.0 %) 22.0 L 28.9 L 21.3 L MCV (81.0 - 99.0 fL) 92.8 91.7 99.1 H MCH (27.0 - 33.0 pg) 30.8 30.5 32.1 MCHC (33.0 - 37.0 g/dL) 33.2 33.2 32.4 L RDW (11.5 - 14.5 %) 17.8 H 16.1 H 14.2 Plt Count (150 - 400 x10 3/uL) 203 319 300 MPV (7.0 - 9.0 fL) 11.6 H 11.3 H 11.7 H Neut % (Auto) (56.0 - 77.0 %) 84.6 H 87.6 H 77. 9 H Lymph % (Auto) (14.0 - 32.0 %) 6.9 L 6.9 L 12.3 L Falls % (Auto) (4.8 - 9.0 %) 7.6 4.4 L 6.3 Eos % (Auto) (0.3 - 3.7 %) 0.0 L 0.1 L 2.4 Baso % (Auto) (0.0 - 2.0 %) 0.3 0.5 0.7 Neut # (Auto) (2.0 - 7.6 x10 3/uL) 12.60 H 14.7 5 H 9.50 H Lymph # (Auto) (1.0 - 3.8 x10 3/uL) 1.03 1.16 1 .50 Falls # (Auto) (0.1 - 0.8 x10 3/uL) 1.13 H 0.74 0.77 Eos # (Auto) (0.0 - 0.2 x10 3/uL) 0.00 0.02 0.2 9 H Baso # (Auto) (0.0 - 0.2 x10 3/uL) 0.05 0.09 0. 08 Abs Immat Gran (auto) (0.00 - 0.03 x10 3/uL) 0. 09 H 0.08 H 0.05 H Add Manual Diff NO NO NO Immature Gran % (0.0 - 2.0 %) 0.6 0.5 0.4 Nucleated RBC % (0 - 0 %) 0.0 0.0 0.0 Nucleated RBCs # (Man) (0.0 - 0.1 x10 3/uL) 0.0 0 0.00 0.00 Laboratory Tests 01/13 0415 Chemistry Magnesium (1.80 - 2.40 mg/dL) 1.72 L Radiology data: Recent Impressions: CAT SCAN - CTA ABD PEL W CONT 01/12 1757 Report Impression - Status: SIGNED Entered: 01/12/2022 0650 IMPRESSION: 1. No evidence for aneurysm or dissection of the abdominal aorta. Heavy vascular calcification. Moderate proximal renal arterial stenosis. 2. Large area of edema, swelling and stranding w ith 7.0 x 5.1 x 12.7 cm mass extending from the left groin to th e left upper thigh, probably soft tissue hemorrhage and hematoma. 1. 5 x 0.7 cm elongated hypodense area anterior to the GARAGE [employer]GER bif urcation may represent pseudoaneurysm versus contrast extrava sation. 3. Small and atrophy kidneys with cortical scar, nephrolithiasis in heavy intrarenal vascular calcification. No hydr onephrosis. Left renal cyst. 4. Reticulonodular opacities in bilateral lower lobes may represent infectious/inflammatory process in appropriate c linical setting. 5. Additional incidental and chronic findings as above. Impression By: [email or web address] Keegan Son M.D. ULTRASOUND - [facility] [employer] 01/13 2120 Report Impression - Status: SIGNED Entered: 01/12/2022 2217 IMPRESSION: There is no arterial pseudoaneurysm detected. Impression By: Alonso Knight D.O. RADIOLOGY - XR CHEST 1 V 01/12 2122 Report Impression - Status: SIGNED Entered: 01/12/2022 2215 IMPRESSION: 1. There is a right mainstem bronchus intubation . The endotracheal tube terminates 1.8 cm deep to the юлия. Retra ction of 5-6 cm is recommended for optimal position. 2. There is a new small left pleural effusion. T here is no pneumothorax. 3. There is mild right infrahilar pulmonary opac ity. There is moderate reticulonodular opacity in mid and uppe r lung. These areas are suspicious for pneumonia. Impression By: Alonso Knight D.O. RADIOLOGY - XR CHEST 1 V 01/12 2353 Report Impression - Status: SIGNED Entered: 01/13/2022 0043 IMPRESSION: 1. Left perihilar airspace disease with blunting the left costophrenic angle suggesting pleural thickening versus small effusion. 2. Support devices as noted above. Impression By: [email or web address] - Magi Ramirez M.D Diagnosis, Assessment Plan Free Text DxA P Notes Free Text DxA P Notes: Mrs. Agarwal is an 81 y/o F w/ PMHx: HTN, CAD s/p RCA x 3 stents in December 2021, OA, CKD stage III, Lung can on remission present s to [facility] for elective LHC. 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 Her left femoral site intermittent hematoma and RN has be en holding pressure intermittent. Currently, SBP 110's w/ IVF going. Dr. Weaver is at bedside. Telemetry shows nsr. Patient denied chest discom fort, no sob, no palpitation. Daughter reports pt had UTI and Covid last week which she completed the treatment. - CAD s/p LHC. LAD 60% stenosis. S/P right groin hematoma and as per vascular de leon rgery. Hb today was 7.3 On Plavix, ASA, BB and statins. - HTN. BP controlled. Resume home meds: Losartan, Metoprolol. - OA. - CKD stage III. Per IM. Electronically Signed by Kenton Lance MD on at 0712 [facility] #:[id number] END OF REPORT 2022-01-13 06:15:00-00:00 [facility] ([facility]) Critical Care Consult Note REPORT#:[id number] REPORT STATUS: Signed DATE:01/13/22 TIME: 614 PATIENT: FALGUNI AGARWAL UNIT #: [id number] ROOM/BED: [place] [address] : 39 AGE: 81 SEX: F ATTEND: Kimo Gill MD ADM AUTHOR: Deanna Aguilar MD * ALL edits or amendments must be made on the [employer]/computer document * History of Present Illness HPI Requesting clinician: Dr Dotson Reason for consult: s/p groin exploration for bleeding Chief complaint: elective cardiac cath HPI: 81 yo F with PMH of pretension coronary artery disease s/p 3 stents, CKD stage III, lung cancer in remission was admitted for e lective cath. Patient had a cardiac cath and her left fe moral site started developing and hematoma which did not resolve on holding pressure. Vascular surgery was consulted for the hematoma, and given that she was hypotension and anemic CT abdomen was ordered st . She was planned for emergent exploration and evacuation of hematoma. SHe underwent evacuation of hematoma and repair of common femoral artery on the left side. She was brought to CCU intubated History - Adult longitudinal Past medical history: Reports: Arthritis, Cancer (lung - remission), C oronary artery disease, Hypertension, Kidney disease/stones. Past surgical history: Reports: Cholecystectomy, Hysterectomy. Family history: Reports: Heart disease (mother, sister, brother) . Alcohol use: Denies EtOH use Drug use: Denies recreational drugs Smoking status: Smoking status for patients 13 years old or old er: Former Smoker Date last smoked: 06/05/92 Packs per day: 1 Years smoked: 25 Pack years: 25 Allergies: Coded Allergies: morphine (Severe, RASH 12/14/21) Review of Systems ROS Unable to obtain due to: Intubated Objective Physical Exam VS/I O: Last Documented: Result Date Time Pulse Ox 100 01/13 040 FiO2 50 01/13 040 Pulse 95 01/13 0403 Temp 36.7 01/13 0400 B/P 165/61 01/13 0252 B/P Mean 103 01/13 0252 Resp 46 01/13 025 O2 Delivery Ventilator 01/125 24 hour I O ending at 0700: 01/13 0700 01/12 1900 Intake Total 1611.00 Output Total 1025 Balance 586.00 Intake, IV 1611.00 Number 0 Bowel Movements Output, 100 Drainage Output, 525 Gastric Drainage Output, Urine 400 Patient 49 kg Weight Weight Stated/Reported Measurement Method Patient Weight and BMI Weight (kg): 49.000 BMI: 23.4 Medications: Active Meds + DC'd Last 24 Hrs Aspirin (ASPIRIN) 81 MG DAILY PO Clopidogrel Bisulfate (Plavix) 75 MG DAILY PO Losartan Potassium (COZAAR) 25 MG DAILY PO Metoprolol Tartrate (LOPRESSOR) 50 MG BID PO Levothyroxine Sodium (Synthroid) 50 MCG DAILY 06 00 PO Calcium Gluconate/Sodium Chloride (Calcium Gluco carmen 2 GM/NS 100 mL) 100 ML ONCE ONE IV (DC) Magnesium Sulfate (MAGNESIUM SULFATE 4GM/SWFI 10 0ML) 100 ML ONCE ONE IV Sodium Bicarbonate (SODIUM BICARBONATE) 50 MEQ O NCE ONE IV (DC) Albumin Human (ALBUMINAR 5% 12.5GM/250ML) 250 ML Q1H IV (DC) Sodium Chloride (SODIUM CHLORIDE 0.9%) 250 ML ON CE ONE IV Fentanyl Citrate (SUBLIMAZE) 50 MCG ONCE ONE IV (DC) Fentanyl Citrate (SUBLIMAZE) 50 MCG ONCE ONE IV (DC) Fentanyl Citrate (SUBLIMAZE) 0 .STK-MED ONE IV ( DC) Atorvastatin Calcium (LIPITOR) 40 MG BEDTIME PO Metoprolol Tartrate (LOPRESSOR) 50 MG BID PO (DC ) Mupirocin (BACTROBAN 2% 22 GM OINTMENT) 1 APPLIC BID NASAL Topiramate (TOPAMAX) 25 MG BID PO Glycopyrrolate (GLYCOPYRROLATE) 0 .STK-MED ONE . ROUTE (DC) Neostigmine Methylsulfate (PROSTIGMIN) 0 .STK-ME D ONE .ROUTE (DC) Cefazolin Sodium (KEFZOL OR ANCEF) 0 .STK-MED ON E .ROUTE (DC) Heparin Sodium (HEPARIN SODIUM) 0 .STK-MED ONE . ROUTE (DC) Fentanyl Citrate (SUBLIMAZE) 0 .STK-MED ONE .ROU TE (DC) Etomidate (AMIDATE) 0 .STK-MED ONE IV (DC) Propofol (DIPRIVAN 200MG/20ML INJECTION) 20 ML . STK-MED ONE IV (DC) Rocuronium Rex (ZEMURON) 0 .STK-MED ONE IV ( DC) Succinylcholine Chloride (QUELICIN FLIPTOP) 0 .S TK-MED ONE IV (DC) Iopamidol (ISOVUE-370 100ML) 100 ML .STK-MED ON E IV (DC) Heparin Sodium (HEPARIN SODIUM) 0 .STK-MED ONE . ROUTE (DC) Thrombin (RECOTHROM) 0 .STK-MED ONE TOPICAL (DC) Ondansetron HCl (ZOFRAN) 0 .STK-MED ONE IV (DC) Fentanyl Citrate (SUBLIMAZE) 0 .STK-MED ONE .ROU TE (DC) Fentanyl Citrate (SUBLIMAZE) 0 .STK-MED ONE .ROU TE (DC) Tramadol HCl (ULTRAM) 50 MG Q6H PRN PRN PO (DC) Atropine Sulfate (ATROPINE SULFATE 0.1MG/ML SYR) 0.5 MG ASDIR PRN IV Sodium Chloride (SODIUM CHLORIDE 0.9%) 1,000 ML .[id number] IV (DC) Sodium Chloride (SODIUM CHLORIDE 0.9%) 500 ML DIR PRN IV Adenosine (ADENOSCAN) 0 .STK-MED ONE IV (DC) Sodium Chloride (SODIUM CHLORIDE 0.9%) 50 ML .ST K-MED ONE IV (DC) Fentanyl Citrate (SUBLIMAZE) 0 .STK-MED ONE .ROU TE (DC) Midazolam HCl (VERSED) 0 .STK-MED ONE .ROUTE (DC ) Verapamil HCl (ISOPTIN) 0 .STK-MED ONE IV (DC) Heparin Sodium (HEPARIN SODIUM) 0 .STK-MED ONE . ROUTE (DC) Heparin Sodium/Sodium Chloride (HEPARIN 2,000 UN ITS/NS 1,000mL) 1,000 ML .STK-MED ONE IV (DC) Heparin Sodium/Sodium Chloride (HEPARIN 1,000 UN ITS/NS 500ML) 500 ML .STK- MED ONE IV (DC) Iopamidol (ISOVUE-370 200ML) 0 .STK-MED ONE IV ( DC) Lidocaine HCl (XYLOCAINE 2%) 0 .STK-MED ONE .ROU TE (DC) Nitroglycerin/Dextrose (NITROGLYCERIN 50,000MCG/ D5W 250ML) 250 ML .STK-MED ONE IV (DC) Results Findings/Data: Laboratory Tests 01/13/22 0415: [Embedded Image Not Available] 01/12/222007: [Embedded Image Not Available] 01/12/22 1530: [Embedded Image Not Available] Laboratory Tests 01/133 0138 2210 Blood Gas Puncture Site Art Line Art Line Art Line O2 Saturation (90 - 100 %) 99.1 99.5 97.7 ABG pH (7.35 - 7.45) 7.318 L 7.301 L 7.289 *L ABG pCO2 (35.0 - 45 mmHg) 35.6 39.0 38.2 ABG pO2 (80 - 100.0 mmHg) 148.4 H 184.3 H 108. 8 H ABG PO2/FiO2 Ratio (mm/Hg) 371.00 368.60 ABG HCO3 (22.0 - 26.0 MMOL/L) 18.2 L 19.2 L 18. 4 L ABG Total CO2 19.2 20.4 19.6 ABG Base Excess (-4.0 - 4.0 MMOL/L) -7.9 L -7.2 L -8.3 L ABG Hematocrit (33.0 - 45.0 %) 21 L 23 L 26 L ABG Hemoglobin (11.0 - 15.0 G/DL) 7.0 L 7.7 L 8 .9 L Sodium (134 - 147 MEQ/L) 143 142 140 Potassium (3.4 - 5.0 MEQ/L) 4.3 4.5 4.8 Chloride (100 - 108 MEQ/L) 115 H 114 H 113 H Ionized Calcium (1.12 - 1.32 MMOL/L) 1.09 L 1.1 2 1.12 Lactic Acid (0.9 - 1.7 mmol/l) 0.7 L 0.5 L 0.8 L Temperature (F) 99.2 99.1 98 O2 Delivery Device Adult Vent Adult Vent Adult Vent Vent Mode AC AC Vent Rate (/MIN) 14 14 FiO2 (%) 40 50 Tidal Volume (ml) 400 400 PEEP (cmH2O) 5 5 01/12 1941 Blood Gas Puncture Site Art Line O2 Saturation (90 - 100 %) 100.0 69.6 L ABG pH (7.35 - 7.45) 7.249 *L 7.140 *L ABG pCO2 (35.0 - 45 mmHg) 44.5 56.1 *H ABG pO2 (80 - 100.0 mmHg) 449.8 *H 47.6 *L ABG HCO3 (22.0 - 26.0 MMOL/L) 19.5 L 19.1 L ABG Total CO2 20.9 20.8 ABG Base Excess (-4.0 - 4.0 MMOL/L) -7.8 L -10. 0 L ABG Hematocrit (33.0 - 45.0 %) 27 L 32 L ABG Hemoglobin (11.0 - 15.0 G/DL) 9.1 L 11.0 Sodium (134 - 147 MEQ/L) 141 138 Potassium (3.4 - 5.0 MEQ/L) 4.9 5.6 H Chloride (100 - 108 MEQ/L) 113 H 112 H Ionized Calcium (1.12 - 1.32 MMOL/L) 1.13 1.16 Lactic Acid (0.9 - 1.7 mmol/l) 1.0 0.9 Temperature (F) 98 O2 Delivery Device Adult Vent Laboratory Tests 01/13 01/13 01/13 01/12 01/12 0415 0413 0133 0 2122 Chemistry Sodium (134 - 147 mEq/L) 141 Potassium (3.4 - 5.0 mEq/L) 4.2 Chloride (100 - 108 mEq/L) 116 H Carbon Dioxide (21 - 33 mEq/l) 20 L Anion Gap (0 - 20) 9 BUN (7 - 18 mg/dL) 23 H Creatinine (0.6 - 1.3 mg/dL) 1.4 H POC Creatinine (0.6 - 1.0 mg/dL) 1.5 H 1.6 H 1. 5 H 1.6 H Glomerular Filtr Rate (70 - 80) 36.0 L Glucose (70 - 110 mg/dL) 125 H POC Glucose (mg/dL) (70 - 110 MG/DL) 119 H 116 H 163 H 154 H Calcium (8.0 - 10.5 mg/dL) 7.2 L Ionized Calcium Racquel (1.09 - 1.30 1.13 MMOL/L) Phosphorus (2.5 - 4.9 MG/DL) 3.9 Magnesium (1.80 - 2.40 mg/dL) 1.72 L 01/12 Chemistry Sodium (134 - 147 mEq/L) 136 Potassium (3.4 - 5.0 mEq/L) 5.1 H Chloride (100 - 108 mEq/L) 109 H Carbon Dioxide (21 - 33 mEq/l) 19 L Anion Gap (0 - 20) 13 BUN (7 - 18 mg/dL) 23 H Creatinine (0.6 - 1.3 mg/dL) 1.5 H POC Creatinine (0.6 - 1.0 mg/dL) 1.5 H Glomerular Filtr Rate (70 - 80) 33.2 L Glucose (70 - 110 mg/dL) 171 H POC Glucose (mg/dL) (70 - 110 MG/DL) 190 H Calcium (8.0 - 10.5 mg/dL) 7.6 L Total Bilirubin (0.0 - 1.0 mg/dL) 0.60 AST (15 - 37 IUnit/L) 29 ALT (30 - 65 IUnit/L) 13 L Total Alk Phosphatase (20 - 125 IUnit/L) 56 Total Protein (6.4 - 8.2 g/dL) 5.6 L Albumin (3.4 - 5.0 g/dL) 3.00 L Laboratory Tests 01/12 01/12 01/12 1535 1237 1224 Coagulation Activated Coag Time (74 - 137 SEC) 178 H 254 H 231 H Laboratory Tests 01/13 Hematology WBC (4.5 - 11.0 x10 3/uL) 14.9 H 16.8 H 12.2 H RBC (3.54 - 5.02 x10 6/uL) 2.37 L 3.15 L 2.15 L Hgb (11.0 - 15.0 g/dL) 7.3 L 9.6 L 6.9 L Hct (33.0 - 45.0 %) 22.0 L 28.9 L 21.3 L MCV (81.0 - 99.0 fL) 92.8 91.7 99.1 H MCH (27.0 - 33.0 pg) 30.8 30.5 32.1 MCHC (33.0 - 37.0 g/dL) 33.2 33.2 32.4 L RDW (11.5 - 14.5 %) 17.8 H 16.1 H 14.2 Plt Count (150 - 400 x10 3/uL) 203 319 300 MPV (7.0 - 9.0 fL) 11.6 H 11.3 H 11.7 H Neut % (Auto) (56.0 - 77.0 %) 84.6 H 87.6 H 77. 9 H Lymph % (Auto) (14.0 - 32.0 %) 6.9 L 6.9 L 12.3 L Falls % (Auto) (4.8 - 9.0 %) 7.6 4.4 L 6.3 Eos % (Auto) (0.3 - 3.7 %) 0.0 L 0.1 L 2.4 Baso % (Auto) (0.0 - 2.0 %) 0.3 0.5 0.7 Neut # (Auto) (2.0 - 7.6 x10 3/uL) 12.60 H 14.7 5 H 9.50 H Lymph # (Auto) (1.0 - 3.8 x10 3/uL) 1.03 1.16 1 .50 Falls # (Auto) (0.1 - 0.8 x10 3/uL) 1.13 H 0.74 0.77 Eos # (Auto) (0.0 - 0.2 x10 3/uL) 0.00 0.02 0.2 9 H Baso # (Auto) (0.0 - 0.2 x10 3/uL) 0.05 0.09 0. 08 Abs Immat Gran (auto) (0.00 - 0.03 x10 3/uL) 0. 09 H 0.08 H 0.05 H Add Manual Diff NO NO NO Immature Gran % (0.0 - 2.0 %) 0.6 0.5 0.4 Nucleated RBC % (0 - 0 %) 0.0 0.0 0.0 Nucleated RBCs # (Man) (0.0 - 0.1 x10 3/uL) 0.0 0 0.00 0.00 Free Text Obj Notes Free Text Obj Notes: GEN:female in no acute distress,intubated HEENT: Atraumatic, normocephalic, moist mucous m embranes NECK: Supple, good range of motion, no tendernes s LUNGS: Symmetrical air entry, no acute respirato ry distress CV: S1, S2 regular rate and rhythm GI: Abdomen is soft, not tender or distended EXT/Musc: No edema or cyanosis. Pedal pulses pre sent Skin: Groin site no active extravasation seen. NEURO: Awake, alert and oriented x3. No facial d lizette or focal deficit Diagnosis, Assessment Plan Free text DxA P: 81 yo F admitted to CCU for Acute respiratory failure for the surgery Acute blood loss anemia from the extravasation f rom the left common femoral artery access site for the cardiac cath Metabolic acidosis CKD Neuro patient is at baseline. Patient was given some dose of fentanyl as soon as she came out of the OR as she was bucking the vent. Patient placed on CPAP and she tolerated well pl an to extubate Continue to monitor the bloo d pressure. Patient had ultrasound of the left side done, did not show any pseudoaneurysm Continue to monitor the hemo globin. Patient's blood pressure on the higher side has not required any resuscitation from me. Monitor the urine output and replete electrolyte s. Patient had epigastric bowel NG tube was placed and 500 cc was sucked out. Continue blood pressure medications. DC A-line. Patient is on aspirin and Plavix bowel regimen No Indication for PPI Total critical care time 36 minutes Electronically Signed by Deanna Aguilar MD on 0 01/13/22 at 0629 [facility] #:[id number] END OF REPORT 2022-01-13 04:47:00-00:00 [id number] [place] [address] PATIENT NAME: FALGUNI AGARWAL ADMIT DATE: 01/13/22 ACCOUNT NO: [id number] ROOM NO: [id number] AGE: 81 REPORT TYPE: eELECTROCARDIOGRAM REPORT SEX: F ADMITTING PHYSICIAN:Sanju Gill MD ATTENDING PHYSICIAN:Sanju Gill MD Order: [id number] Test Reason : , Test Date/Time Stamp: MonJan 13 2022 04:47:33 Blood Pressure : / mmHG Vent. Rate : 095 BPM Atrial Rate : 095 BPM P-R Int : 124 ms QRS Dur : 076 ms QT Int : 382 ms P-R-T Axes : 084 055 -25 degree s QTc Int : 480 ms Sinus rhythm with premature atrial complexes Nonspecific ST abnormality Abnormal QRS-T angle, consider primary T wave ab normality Abnormal ECG When compared with ECG of 10-JAN-2022 15:04, Significant changes have occurred Confirmed by MD CASI, KENTON ([id number]) on 01/18/20 8:55:07 PM Referred By: Sanju Gill Confirmed by:KENTON LANCE MD at 2054 PATIENT NAME: FALGUNI AGARWAL 2022-01-12 18:45:00-00:00 [facility] Operative Note - Full REPORT#:[id number] REPORT STATUS: Signed DATE:01/12/22 TIME: 1844 PATIENT: FALGUNI AGARWAL UNIT #: [id number] ROOM/BED: [place] [id number] : 39 AGE: 81 SEX: F ATTEND: Kimo Gill MD ADM AUTHOR: Jerry Dotson MD * ALL edits or amendments must be made on the [employer]/computer document * Operative Report ORM Surgeries: Surgery Date and Time: 01/12/2022 1800 Proposed Primary Procedure: LEFT GROIN EXPLORAT ION Start date: 01/12/22 Start time: 1900 Pre-procedure diagnosis: life threatening hemorrhage left common femoral artery Post-procedure diagnosis: same Procedures performed: Emergent Left groin hemorrha ge with evacuation of hematoma and repair of common femoral artery for hemorrhage 70022, 78553 Technique/Procedure: The patient was brought emergently into the oper ating room and prepped and draped in the usual sterile manner. Inci stephanie was made overlying the left groin access point with a transverse incision and carried down with sharp dissection electrocautery as needed. Th e common femoral artery was exposed and the area of hemorrhage was identified. Pressure was held ove r the hemorrhage to control until a 5-0 Prolene stitch c ould be placed for adequate control. After adequate withdrawal was obtained the surrounding hematoma was evacuated extending to the medial side with use of hydroperoxide mi xed 1-10 with saline. After completion of exploration and adequate assessment indicatin g no further hemorrhage the groin was closed in layers with 2-0 Vicryl stitc h for the fascia in running fashion and 4-0 Monocryl sti tch for the skin in a running subcuticular fashion. The patient tolerated the procedure well. There were no complications. The patient was stable on discharge to the ICU. Primary Surgeon: Dr. Jerry Dotson Third Mate(s): none Anesthesia: general anesthesia Operative findings: Active extravasation from left common femoral ar zach. Medial large hematoma extending into medial thigh. Complications: none Estimated blood loss in ml's: 100 cc Specimens removed/altered: hematoma Implant(s): none at 1939 RPT #:[id number] END OF REPORT 2022-01-12 18:35:00-00:00 [facility] ([facility] Brief Op Note REPORT#:[id number] REPORT STATUS: Signed DATE:01/12/22 TIME: 1834 PATIENT: FALGUNI AGARWAL UNIT #: [id number] ROOM/BED: [place] [address] : 39 AGE: 81 SEX: F ATTEND: Kimo Gill MD ADM AUTHOR: Jerry Dotson MD * ALL edits or amendments must be made on the el [employer]/computer document * Op/Inv Proc Note - Brief ORM Surgeries: Surgery Date and Time: 01/12/2022 1800 Proposed Primary Procedure: LEFT GROIN EXPLORAT ION Pre-procedure diagnosis: life threatening hemorrhage left common femoral artery Post-procedure diagnosis: same as pre procedure dx Procedures performed: Emergent Left groin hemorrha ge with evacuation of hematoma and repair of common femoral artery for hemorrhage 99092, 18772 Primary Surgeon: Dr. Jerry Dotson Third Mate(s): none Anesthesia: general anesthesia Findings: Active extravasation from left common femoral ar zach. Medial large hematoma extending into medial thigh. Complications: none Estimated blood loss in ml's: 100 cc Specimens removed/altered: hematoma at 1939 RPT #:[id number] END OF REPORT 2022-01-12 16:57:00-00:00 [facility] ([facility]) Vascular Surgery Consult Note REPORT#:[id number] REPORT STATUS: Signed DATE:01/12/22 TIME: 1656 PATIENT: FALGUNI AGARWAL UNIT #: [id number] ROOM/BED: [place] [address] : 39 AGE: 81 SEX: F ATTEND: Kimo Gill MD ADM AUTHOR: Jerry Dotson MD * ALL edits or amendments must be made on the [employer]/computer document * History of Present Illness Requesting Clinician: Dr. Weaver Reason for consult: Left groin hematoma Chief complaint: CAD, left groin hematoma HPI: 81 y/o F w/ PMHx: HTN, CAD s/p RCA x 3 s tents in December 2021, OA, CKD stage III, Lung can on remission presents to [facility] for elec tive LHC. 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 Her left femoral site intermittent hematoma and RN and attending has b eedenzel holding pressure intermittent. Currently, SBP 110's w/ IVF going. Dr. Weaver is at bedside. Telemetry shows nsr. Patient denied chest discom fort, no sob, no palpitation. Per reports pt had UTI and Covid last week which she completed the treatment. Despite pressure, patient has hypotentison, anem ia. History - Adult longitudinal Past medical history: Reports: Arthritis, Cancer (lung - remission), C oronary artery disease, Hypertension, Kidney disease/stones. Past surgical history: Reports: Cholecystectomy, Hysterectomy. Family history: Reports: Heart disease (mother, sister, brother) . Alcohol use: Denies EtOH use Drug use: Denies recreational drugs Smoking status: Smoking status for patients 13 years old or old er: Former Smoker Date last smoked: 06/05/92 Packs per day: 1 Years smoked: 25 Pack years: 25 Medications: Home Medications: Medication Dose/Rte/Freq Days Qty Entered Last Max Daily Dose Reviewed CLOPIDOGREL (PLAVIX) 75 MG PO DAILY 12/14/21 Strength: 75 MG TAB 1152 0744 TOPIRAMATE (TOPAMAX) 25 MG PO BID 12/14/2101/03 Strength: 25 MG TAB 1152 0744 OMEPRAZOLE ER 20 MG PO DAILY 12/14/21 01/12/22 Strength: 20 MG CAP.DR 1152 0744 METOPROLOL TARTRATE 50 MG PO BID 12/14/2101/12 (LOPRESSOR) 1153 0744 Strength: 50 MG TAB LOSARTAN (COZAAR) 25 MG PO DAILY 12/14/2101/12 Strength: 25 MG TAB 1153 0744 [PROLIA] 60 MG SUBQ 12/14/21 01/12/22 Strength: EVERY 6 MOS 1154 0744 traMADol (ULTRAM) 50 MG PO 12/14/21 01/12/22 Strength: 50 MG TAB Q6H PRN PRN ACUTE 1154 0744 PAIN ASPIRIN 81 MG PO DAILY 12/15/21 01/12/22 Strength: 81 MG TAB.CHEW 1213 0744 LEVOTHYROXINE 50 MCG PO DAILY 01/12/22 01/12/22 (SYNTHROID) 0745 0745 Strength: 50 MCG TAB ATORVASTATIN (LIPITOR) 40 MG PO BEDTIME 90 90 0 12/15/21 01/12/22 Strength: 40 MG TAB 1423 0744 Current Hospital Medications: Autonomic Drugs Sig/Brandi Start time Last Medication Dose Route Stop Time Status Admin Atropine Sulfate 0.5 MG ASDIR PRN 01/12 1330 AC (ATROPINE SULFATE IV 01/13 1324 0.1MG/ML SYR) Blood Formation,Coagulation Sig/Brandi Start time Last Medication Dose Route Stop Time Status Admin Clopidogrel Bisulfate 75 MG DAILY 01/13 0900 AC (Plavix) PO 02/12 0859 Heparin Sodium 0 .STK-MED ONE 01/12 1122 DC (HEPARIN SODIUM) .ROUTE 1215 Heparin Sodium/ 1,000 ML .STK-MED ONE 01/12 112 2 DC 01/12 Sodium Chloride IV 1215 (HEPARIN 2,000 UNITS/ NS 1,000mL) Heparin Sodium/ 500 ML .STK-MED ONE 01/12 1122 DC 01/12 Sodium Chloride IV 1215 (HEPARIN 1,000 UNITS/ NS 500ML) Cardiovascular Drugs Sig/Brandi Start time Last Medication Dose Route Stop Time Status Admin Losartan Potassium 25 MG DAILY 01/13 900 AC (COZAAR) PO 02/12 08 Metoprolol Tartrate 50 MG BID 01/13 900 AC (LOPRESSOR) PO 02/11 1544 Atorvastatin Calcium 40 MG BEDTIME 01/12 2100 A C (LIPITOR) PO 02/11 2059 Metoprolol Tartrate 50 MG BID 01/12 2100 DC (LOPRESSOR) PO 02/11 2059 Adenosine 0 .STK-MED ONE 01/12 1219 DC 01/12 (ADENOSCAN) IV 1230 Verapamil HCl 0 .STK-MED ONE 01/12 1129 DC (ISOPTIN) IV Lidocaine HCl 0 .STK-MED ONE 01/12 112 DC 01/03 0 (XYLOCAINE 2%) .ROUTE 1215 Nitroglycerin/ 250 ML .STK-MED ONE 01/12 1122 D C Dextrose IV (NITROGLYCERIN 50,000MCG/D5W 250ML) Central Nervous System Agents Sig/Brandi Start time Last Medication Dose Route Stop Time Status Admin Aspirin 81 MG DAILY 01/13 900 AC (ASPIRIN) PO 02/12 08 Topiramate 25 MG BID 01/12 2100 AC (TOPAMAX) PO 02/11 2059 Fentanyl Citrate 0 .STK-MED ONE 01/12 1523 DC (SUBLIMAZE) .ROUTE Fentanyl Citrate 0 .STK-MED ONE 01/12 1445 DC (SUBLIMAZE) .ROUTE Tramadol HCl 50 MG Q6H PRN PRN 01/12 1430 PEND (ULTRAM) PO 01/17 1429 Fentanyl Citrate 0 .STK-MED ONE 01/12 1153 DC 0 01/12 (SUBLIMAZE) .ROUTE 1215 Midazolam HCl 0 .STK-MED ONE 01/12 1152 DC 01/03 0 (VERSED) .ROUTE 1215 Diagnostic Agents Sig/Brandi Start time Last Medication Dose Route Stop Time Status Admin Iopamidol 0 .STK-MED ONE 01/12 1122 DC 01/12 (ISOVUE-370 200ML) IV 1215 Electrolytic, Caloric, And [place] Sig/Brandi Start time Last Medication Dose Route Stop Time Status Admin Sodium Chloride 1,000 ML .[id number] 01/12 1330 AC (SODIUM CHLORIDE IV 01/13 0249 0.9%) Sodium Chloride 500 ML ASDIR PRN 01/12 1330 AC (SODIUM CHLORIDE IV 01/13 1324 0.9%) Sodium Chloride 50 ML .STK-MED ONE 01/12 1219 D C 01/12 (SODIUM CHLORIDE IV 1230 0.9%) Gastrointestinal Drugs Sig/Brandi Start time Last Medication Dose Route Stop Time Status Admin Ondansetron HCl 0 .STK-MED ONE 01/12 1647 DC (ZOFRAN) .ROUTE Hormones And Synthetic Substit Sig/Brandi Start time Last Medication Dose Route Stop Time Status Admin Levothyroxine Sodium 50 MCG DAILY 0600 01/13 06 00 AC (Synthroid) PO 02/12 0559 Review of Systems Constitutional: generalized weakness. Denies: chills, fever. Skin: Denies: diaphoresis, laceration. Allergy/Immun: Denies: itching. Eyes: Denies: redness, discharge, visual loss/blurred. ENT: Denies: mouth pain, nasal congestion. Respiratory: Denies: SHAH (dyspnea on exertion), pleurisy, pro ductive cough (sputum), SOB. Cardiovascular: Denies: chest pain, dyspnea on exertion, edema, orthopnea, palpitations, parox noctural dyspnea. GI: Denies: diarrhea, dysphagia. : Denies: hematuria, nocturia. Musculoskeletal: Denies: extremity swelling, joint swelling. Heme: Denies: bleeding, bruising. Endocrine: Denies: cold intolerance, heat intolerance. Neuro: Denies: change in LOC, lightheaded. Psych: Denies: change in mental status. Allergies: Coded Allergies: morphine (Severe, RASH 12/14/21) Objective VS/I O: Last Documented: Result Date Time Pulse Ox 100 01/12 749 B/P 161/70 01/12 749 Temp 98.0 01/12 749 Pulse 77 01/12 749 Resp 18 01/12 749 PATIENT WEIGHT: Weight (lb): 108 Weight (oz): 0.42 Weight (kg): 49.000 Physical Exam General appearance: frail, a lert, awake, oriented, no acute distress, pleasant, conversational, mental status normal, no respira tory distress Head/Eyes: atraumatic, clear cornea ENT: moist mucosal membranes Neck: no JVD Cardiovascular: regular rate and rhythm, no murm ur Respiratory: decreased breath sounds, no distres s Abdomen: soft, non-tender, no distention Genitourinary: no flank pain, no urinary cathete r Lower extremity: no edema, No PT per Doppler b/l . 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, oriented X 3, normal speech Psychiatry: normal affect, normal judgment/insig ht Findings/Data: Laboratory Tests 01/12 01/12 01/12 1535 1237 1224 Coagulation Activated Coag Time (74 - 137 SEC) 178 H 254 H 231 H Laboratory Tests 01/12 1530 Hematology WBC (4.5 - 11.0 x10 3/uL) 12.2 H RBC (3.54 - 5.02 x10 6/uL) 2.15 L Hgb (11.0 - 15.0 g/dL) 6.9 L Hct (33.0 - 45.0 %) 21.3 L MCV (81.0 - 99.0 fL) 99.1 H MCH (27.0 - 33.0 pg) 32.1 MCHC (33.0 - 37.0 g/dL) 32.4 L RDW (11.5 - 14.5 %) 14.2 Plt Count (150 - 400 x10 3/uL) 300 MPV (7.0 - 9.0 fL) 11.7 H Neut % (Auto) (56.0 - 77.0 %) 77.9 H Lymph % (Auto) (14.0 - 32.0 %) 12.3 L Falls % (Auto) (4.8 - 9.0 %) 6.3 Eos % (Auto) (0.3 - 3.7 %) 2.4 Baso % (Auto) (0.0 - 2.0 %) 0.7 Neut # (Auto) (2.0 - 7.6 x10 3/uL) 9.50 H Lymph # (Auto) (1.0 - 3.8 x10 3/uL) 1.50 Falls # (Auto) (0.1 - 0.8 x10 3/uL) 0.77 Eos # (Auto) (0.0 - 0.2 x10 3/uL) 0.29 H Baso # (Auto) (0.0 - 0.2 x10 3/uL) 0.08 Abs Immat Gran (auto) (0.00 - 0.03 x10 3/uL) 0. 05 H Add Manual Diff NO Immature Gran % (0.0 - 2.0 %) 0.4 Nucleated RBC % (0 - 0 %) 0.0 Nucleated RBCs # (Man) (0.0 - 0.1 x10 3/uL) 0.0 0 Diagnosis, Assessment Plan Free Text A P: Patient with leg groin hemorrhage s/p left heart cath with persistent hematom recurrence depite pressure held fro several hour s now with anemia and hypotention. CT abdomen pelvis ordered stat. I review ed and concerning for ongion hemorhage despite pressure held. Will take emergently to O r for groin exploration and arterial repair. Discussed with patient and keshai ly. at 1835 RPT #:[id number] END OF REPORT 2022-01-12 15:05:00-00:00 [facility] ([facility]) Cardiology Consultation REPORT#:[id number] REPORT STATUS: Signed DATE:01/12/22 TIME: 1505 PATIENT: FALGUNI AGARWAL UNIT #: [id number] ROOM/BED: [place] [address] : 39 AGE: 81 SEX: F ATTEND: Kimo Gill MD ADM AUTHOR: Alexis Manriquez CYCLE SPECIALIST * ALL edits or amendments must be made on the [employer]/computer document * History of Present Illness HPI Requesting Clinician: DR. BELL Reason for consult: CAD PCP: PCP: Dinorah Corbett MD HPI: Mrs. Agarwal is an 81 y/o F w/ PMHx: HTN, CAD s/p RCA x 3 stents in December 2021, OA, CKD stage III, Lung can on remission present s to [facility] for elective LHC. 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 Her left femoral site intermittent hematoma and RN has be en holding pressure intermittent. Currently, SBP 110's w/ IVF going. Dr. Weaver is at bedside. Telemetry shows nsr. Patient denied chest discom fort, no sob, no palpitation. Daughter reports pt had UTI and Covid last week which she completed the treatment. History - Adult longitudinal Past medical history: Reports: Arthritis, Cancer (lung - remission), C oronary artery disease, Hypertension, Kidney disease/stones. Past surgical history: Reports: Cholecystectomy, Hysterectomy. Family history: Reports: Heart disease (mother, sister, brother) . Alcohol use: Denies EtOH use Drug use: Denies recreational drugs Smoking status: Smoking status for patients 13 years old or old er: Former Smoker Date last smoked: 06/05/92 Packs per day: 1 Years smoked: 25 Pack years: 25 Home medications: Home Medications: CLOPIDOGREL (PLAVIX) 75 MG PO DAILY TOPIRAMATE (TOPAMAX) 25 MG PO BID OMEPRAZOLE ER 20 MG PO DAILY METOPROLOL TARTRATE (LOPRESSOR) 50 MG PO BID LOSARTAN (COZAAR) 25 MG PO DAILY [PROLIA] 60 MG SUBQ EVERY 6 MOS traMADol (ULTRAM) 50 MG PO Q6H PRN PRN ACUTE AMADOU N ASPIRIN 81 MG PO DAILY LEVOTHYROXINE (SYNTHROID) 50 MCG PO DAILY ATORVASTATIN (LIPITOR) 40 MG PO BEDTIME Allergies: Coded Allergies: morphine (Severe, RASH 12/14/21) Review of Systems Constitutional: generalized weakness. Denies: chills, fever. Skin: Denies: diaphoresis, laceration. Allergy/Immun: Denies: itching. Eyes: Denies: redness, discharge, visual loss/blurred. ENT: Denies: mouth pain, nasal congestion. Respiratory: Denies: SHAH (dyspnea on exertion), pleurisy, pro ductive cough (sputum), SOB. Cardiovascular: Denies: chest pain, dyspnea on exertion, edema, orthopnea, palpitations, parox noctural dyspnea. GI: Denies: diarrhea, dysphagia. : Denies: hematuria, nocturia. Musculoskeletal: Denies: extremity swelling, joint swelling. Heme: Denies: bleeding, bruising. Endocrine: Denies: cold intolerance, heat intolerance. Neuro: Denies: change in LOC, lightheaded. Psych: Denies: change in mental status. Objective General VS/I O: Vital Signs: Date Time Temp Pulse Resp B/P B/P Pulse O2 O2 F low FiO2 Mean Ox Delivery Rate 01/12 0749 98.0 77 18 161/70 100 PATIENT WEIGHT: Weight (lb): 108 Weight (oz): 0.42 Weight (kg): 49.000 Medications: Active Meds + DC'd Last 24 Hrs Aspirin (ASPIRIN) 81 MG DAILY PO Clopidogrel Bisulfate (Plavix) 75 MG DAILY PO Losartan Potassium (COZAAR) 25 MG DAILY PO Levothyroxine Sodium (Synthroid) 50 MCG DAILY 06 00 PO Atorvastatin Calcium (LIPITOR) 40 MG BEDTIME PO Metoprolol Tartrate (LOPRESSOR) 50 MG BID PO Topiramate (TOPAMAX) 25 MG BID PO Fentanyl Citrate (SUBLIMAZE) 0 .STK-MED ONE .ROU TE (DC) Fentanyl Citrate (SUBLIMAZE) 0 .STK-MED ONE .ROU TE (DC) Tramadol HCl (ULTRAM) 50 MG Q6H PRN PRN PO (PEND ) Atropine Sulfate (ATROPINE SULFATE 0.1MG/ML SYR) 0.5 MG ASDIR PRN IV Sodium Chloride (SODIUM CHLORIDE 0.9%) 1,000 ML .[id number] IV Sodium Chloride (SODIUM CHLORIDE 0.9%) 500 ML DIR PRN IV Adenosine (ADENOSCAN) 0 .STK-MED ONE IV (DC) Sodium Chloride (SODIUM CHLORIDE 0.9%) 50 ML .ST K-MED ONE IV (DC) Fentanyl Citrate (SUBLIMAZE) 0 .STK-MED ONE .ROU TE (DC) Midazolam HCl (VERSED) 0 .STK-MED ONE .ROUTE (DC ) Verapamil HCl (ISOPTIN) 0 .STK-MED ONE IV (DC) Heparin Sodium (HEPARIN SODIUM) 0 .STK-MED ONE . ROUTE (DC) Heparin Sodium/Sodium Chloride (HEPARIN 2,000 UN ITS/NS 1,000mL) 1,000 ML .STK-MED ONE IV (DC) Heparin Sodium/Sodium Chloride (HEPARIN 1,000 UN ITS/NS 500ML) 500 ML .STK- MED ONE IV (DC) Iopamidol (ISOVUE-370 200ML) 0 .STK-MED ONE IV ( DC) Lidocaine HCl (XYLOCAINE 2%) 0 .STK-MED ONE .ROU TE (DC) Nitroglycerin/Dextrose (NITROGLYCERIN 50,000MCG/ D5W 250ML) 250 ML .STK-MED ONE IV (DC) Physical Exam General appearance: frail, a lert, awake, oriented, no acute distress, pleasant, conversational, mental status normal, no respira tory distress Head/Eyes: atraumatic, clear cornea ENT: moist mucosal membranes Neck: no JVD Cardiovascular: CV assessment: regular rate and rhythm, no murm ur Respiratory: decreased breath sounds, no distres s Abdomen: soft, non-tender, normal bowel sounds, no distention Genitourinary: no flank pain, no urinary cathete r Upper extremity: UE assessment: normal temperature, no edema Lower extremity: LE assessment: no edema, No PT per Doppler b/l. 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, oriented X 3, normal speech Psychiatry: normal affect, normal judgment/insig ht Results Findings/Data: Laboratory Tests 01/12 01/12 1224 1237 Coagulation Activated Coag Time (74 - 137 SEC) 231 H 254 H Results: labs reviewed, vital signs reviewed, vi jayne signs stable, rhythm personally rev'd, current med profile rev'd Telemetry Interpretation: nsr Diagnosis, Assessment Plan Plan discussed with: patient, daughter, nurse Free Text DxA P Notes Free Text DxA P Notes: Mrs. Agarwal is an 81 y/o F w/ PMHx: HTN, CAD s/p RCA x 3 stents in December 2021, OA, CKD stage III, Lung can on remission present s to [facility] for elective LHC. 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 Her left femoral site intermittent hematoma and RN has be en holding pressure intermittent. Currently, SBP 110's w/ IVF going. Dr. Weaver is at bedside. Telemetry shows nsr. Patient denied chest discom fort, no sob, no palpitation. Daughter reports pt had UTI and Covid last week which she completed the treatment. - CAD s/p LHC. LAD 60% stenosis. Left groin site intemittent hematoma - currentl y holding pressure per Dr. Weaver. On Plavix, ASA, BB and statins. - HTN. BP controlled. Resume home meds: Losartan, Metoprolol. - OA. - CKD stage III. Per IM. Electronically Signed by Alexis Manriquez NP on at 1537 Electronically Signed by Kenton Lance MD on at 1943 [facility] #:[id number] END OF REPORT 2022-01-12 12:59:00-00:00 [id number] [address] PATIENT NAME: FALGUNI AGARWAL ADMIT DATE: 01/13/22 ACCOUNT NO: [id number] ROOM NO: [id number] AGE: 81 REPORT TYPE: OPERATIVE REPORT SEX: F ADMITTING PHYSICIAN:Sanju Gill MD ATTENDING PHYSICIAN:Sanju Gill MD OPERATION DATE: 01/12/2022 PREOPERATIVE DIAGNOSIS: POSTOPERATIVE DIAGNOSIS: PROCEDURES PERFORMED: 1. Selective coronary angiogram. 2. Fractional flow reserve of proximal left ante rior descending, which was insignificant at 0.83. SURGEON: Dae Weaver MD AIRCRAFT MAINTENANCE ENGINEER: ANESTHESIA: COMPLICATIONS: None. BLEEDING: Less than 10 mL. TOTAL SEDATION TIME: 45 minutes, used fentanyl a nd Versed. DESCRIPTION OF THE PROCEDURE: After risks, benef its, and alternatives were explained, the patient agreed to proceed and sig arielle informed consent. The patient was brought into the cardiac catheteriza tion laboratory, prepped and draped in sterile fashion. Then, we accessed the right femoral artery using micropuncture kit and placed a 6-Belizean Alpha sheath. Then, I took a 6-Belizean JR4 catheter ____ e ngaged the RCA, took standard views and then took a XB3.5 guide into the aortic root and engaged the left main, took standard views, and then I gave systemic heparin to assu re ACT level above 250. Then, took the FFR wire into the aortic mckayla t and equalized pressures and then advanced the wire into the LAD passing the area of stenosis. FFR w as done using adenosine IV infusions and FFR was 0.83. Then, post-FFR measu rements, we pulled the wire back to the aortic root and there was no drift a nd then final angiogram was satisfactory, and then removed the guide and the sheath and Mynx was used for closure, which did not take, so manual pressure is being held. FINDINGS: 1. Left main is normal. 2. LAD, diffuse proximal 60% and then becomes to rtuous and there is about 30% to 40% tandem lesions throughout. 3. Left circumflex, small vessel with luminal ir regularities. PATIENT NAME: FALGUNI AGARWAL 89 4. RCA widely patent stent w ith residual 40% to 50% disease in the PDA and PLB. CONCLUSION: 1. Moderate coronary artery disease of the LAD. 2. Patent stent to the RCA and moderate coronary artery disease of the PDA and PLB. RECOMMENDATIONS: Aggressive medical management a nd close monitoring. Dictated By: Dae Weaver MD WT: OP:IVANNA/DENTON/MARCIN Conf#: [id number]/DID#: [id number] Authenticated by Dae Weaver MD On 04/06/2022 09:56:19 AM Electronically Signed by Dae Weaver MD on at 0956 PATIENT NAME: FALGUNI AGARWAL 89 2022-01-10 15:04:00-00:00 [id number] [place] [address] PATIENT NAME: FALGUNI AGARWAL ADMIT DATE: ACCOUNT NO: [id number] ROOM NO: AGE: 81 REPORT TYPE: eELECTROCARDIOGRAM REPORT SEX: F ADMITTING PHYSICIAN: ATTENDING PHYSICIAN:Dae Weaver MD Order: [id number] Test Reason : PRE OP Test Date/Time Stamp: MonJan 10 2022 15:04:29 Blood Pressure : / mmHG Vent. Rate : 073 BPM Atrial Rate : 073 BPM P-R Int : 130 ms QRS Dur : 074 ms QT Int : 396 ms P-R-T Axes : 092 059 078 degre es QTc Int : 436 ms Normal sinus rhythm Possible Left atrial enlargement Septal infarct , age undetermined Abnormal ECG When compared with ECG of 15-DEC-2021 14:55, Significant changes have occurred Confirmed by VASILIY SCHULER MD ([id number]) on 1:01:35 PM Referred By: Dae Weaver Confirmed by:VASILIY PORTER MD at 1301 PATIENT NAME: FALGUNI AGARWAL 89 2021-12-16 08:59:00-00:00 [facility]L [facility] ([facility]) Discharge Summary REPORT#:[id number] REPORT STATUS: Signed DATE:12/16/21 TIME: 858 PATIENT: FALGUNI AGARWAL UNIT #: [id number] ROOM/BED: [place] [address] : 39 AGE: 81 SEX: F ATTEND: Sedrick Corbin MD ADM AUTHOR: Alexis Manriquez NP * ALL edits or amendments must be made on the [employer]/computer document * PCP PCP PCP: PCP: No Primary or Family Physician Discharge to: home General Information Date of admission: Observation Start Date: 12/15/21 Date of admission: 12/15/21 Discharge date: 12/16/21 Admission diagnosis: CAD Discharge diagnosis: s/p PCI of RCA x 3 stents Hospital course: Ms Agarwal is an 81 y/o Female w/ PMHx: HTN, CKD s tage III, OA, Lung cancer on remission comes in to [facility] 12/15 for juan m ctive PCI of RCA. Patient had a PCI of RCA x 3 stents. She is AAO x 3, VSS. No chest discomfort, no sob. Her left gr oin site is bruise, soft, no hematoma, no oozing. She ambulated to the bathroom early t his morning w/o difficult. Telemetry shows nsr. A copy of discharge instruction is given to pt's daughter. She will dc home after ambu lation. She will go home w/ Metoprolol 50mg po bid, atorvastatin 40mg daily, ASA 81mg and Plavix 75mg po daily. Patient will f/u w/ Dr. Weaver in 1 week. Med Rec PCP PCP: PCP: No Primary or Family Physician Med Rec Discharge meds: Continue taking these medications: CLOPIDOGREL (PLAVIX) 75 MG TAB 75 MILLIGRAM ORAL DAILY. TOPIRAMATE (TOPAMAX) 25 MG TAB 25 MILLIGRAM ORAL TWICE DAILY. OMEPRAZOLE ER (OMEPRAZOLE ER) 20 MG CAP.DR 20 MILLIGRAM ORAL DAILY. METOPROLOL TARTRATE (LOPRESSOR) 50 MG TAB 50 MILLIGRAM ORAL TWICE DAILY. LOSARTAN (COZAAR) 25 MG TAB 25 MILLIGRAM ORAL DAILY. [PROLIA] 60 MILLIGRAM SUBCUTANEOUS EVERY 6 MOS traMADol (ULTRAM) 50 MG TAB 50 MILLIGRAM ORAL EVERY 6 HOURS NEEDED. as n eeded for ACUTE PAIN ASPIRIN (ASPIRIN) 81 MG TAB.CHEW 81 MILLIGRAM ORAL DAILY. Start taking the following new medications: ATORVASTATIN (LIPITOR) 40 MG TAB 40 MILLIGRAM ORAL BEDTIME. Days = 90 Qty = 90 Refills = 3 Objective VS/I O Last Documented: Result Date Time Pulse Ox 97 12/16 07 B/P 147/71 12/16 07 B/P Mean 96.4 12/16 07 Temp 98.4 12/17 731 Pulse 78 12/16 0732 Resp 21 12/16 0732 O2 Delivery Room air 12/16 0406 24 hour I O ending at 0700: 12/15 1900 12/16 0700 Intake Total 120 Output Total Balance 120 Intake, Oral 120 PATIENT WEIGHT: Weight (lb): 107 Weight (oz): 9.37 Weight (kg): 48.800 General appearance: alert, awake, oriented, no a cute distress, pleasant, conversational, mental status normal, no respira tory distress Head/Eyes: clear cornea Neck: full range of motion, no JVD Cardiovascular: normal capillary refill, regular rate rhythm, normal heart sounds Respiratory: clear to auscultation, no distress GI: soft, non-tender, no guarding, no rebound Extremities: moves all, no edema-all extremities Musculoskeletal: full range of motion, normal in spection 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, oriented X 3 Skin: dry, intact Wound/incision: Location: left groin site soft, bruise, no hematoma. Psychiatry: normal affect Results Findings/Data: Laboratory Tests: 12/15 12/15 12/15 12/15 12/15 1317 1329 1348 1415 1620 Chemistry Sodium (134 - 147 mEq/L) 137 Potassium (3.4 - 5.0 mEq/L) 4.2 Chloride (100 - 108 mEq/L) 108 Carbon Dioxide (21 - 33 mEq/l) 22 Anion Gap (0 - 20) 11 BUN (7 - 18 mg/dL) 22 H Creatinine (0.6 - 1.3 mg/dL) 1.2 Glomerular Filtr Rate (70 - 80) 43.0 L Glucose (70 - 110 mg/dL) 103 Calcium (8.0 - 10.5 mg/dL) 8.5 Coagulation Activated Coag Time (74 - 137 SEC) 254 H 260 H 306 H 288 H Hematology WBC (4.5 - 11.0 x10 3/uL) 9.0 RBC (3.54 - 5.02 x10 6/uL) 3.31 L Hgb (11.0 - 15.0 g/dL) 10.5 L Hct (33.0 - 45.0 %) 30.6 L MCV (81.0 - 99.0 fL) 92.4 MCH (27.0 - 33.0 pg) 31.7 MCHC (33.0 - 37.0 g/dL) 34.3 RDW (11.5 - 14.5 %) 13.4 Plt Count (150 - 400 x10 3/uL) 296 MPV (7.0 - 9.0 fL) 11.5 H Neut % (Auto) (56.0 - 77.0 %) 71.2 Lymph % (Auto) (14.0 - 32.0 %) 17.6 Falls % (Auto) (4.8 - 9.0 %) 7.6 Eos % (Auto) (0.3 - 3.7 %) 2.1 Baso % (Auto) (0.0 - 2.0 %) 1.2 Neut # (Auto) (2.0 - 7.6 x10 3/uL) 6.40 Lymph # (Auto) (1.0 - 3.8 x10 3/uL) 1.58 Falls # (Auto) (0.1 - 0.8 x10 3/uL) 0.68 Eos # (Auto) (0.0 - 0.2 x10 3/uL) 0.19 Baso # (Auto) (0.0 - 0.2 x10 3/uL) 0.11 Abs Immat Gran (auto) (0.00 - 0.03 0.03 x10 3/uL) Add Manual Diff NO Immature Gran % (0.0 - 2.0 %) 0.3 Nucleated RBC % (0 - 0 %) 0.0 Nucleated RBCs # (Man) (0.0 - 0.1 0.00 x10 3/uL) 12/15 12/16 1624 0500 Chemistry Triglycerides (40 - 150 mg/dL) 131 Cholesterol (<200 mg/dL) 160 LDL Cholesterol Measurd (0 - 100 mg/dL) 117.6 H HDL Cholesterol (39 - 96 mg/dL) 40.6 Cholesterol/HDL Ratio (3.27 - 4.44 RATIO) 3.94 Coagulation Activated Coag Time (74 - 137 SEC) 231 H Results: labs reviewed, vital signs reviewed, vi jayne signs stable, rhythm personally rev'd, current med profile rev'd Discharge Instructions PCP PCP: PCP: No Primary or Family Physician )( Discharge to: Home/Self Care Discharge Instructions Additional Discharge Routines: Computer Education Professor Follow -Up )( Diet: Cardiac )( Activity: No lifting than 10lbs till tomorrow 12/17 )( Wound/dressing care: Keep wound clean and dry Follow-up Appointments Consulting provider 1: Provider 1: Dae Weaver MD Provider 1 (free text): 1 week Quality: Discharge Advanced Care Plan 65 or Older Discussed with: patient, daughter. Electronically Signed by Alexis Manriquez NP on at [address] by Lane Corbin MD on at 1111 RPT #:[id number] END OF REPORT 2021-12-15 15:14:00-00:00 HCACL [facility] ([facility]) History Physical - Adult REPORT#:[id number] REPORT STATUS: Signed DATE:12/15/21 TIME: 1513 PATIENT: FALGUNI AGARWAL UNIT #: [id number] ROOM/BED: [place] [address] : 39 AGE: 81 SEX: F ATTEND: Raudel Corbin MD ADM AUTHOR: Alexis Manriquez NP * ALL edits or amendments must be made on the [employer]/computer document * History of Present Illness HPI Chief complaint: chest pain PCP: PCP: No Primary or Family Physician HPI: Ms Agarwal is an 81 y/o Female w/ PMHx: HTN, CKD s tage III, OA, Lung cancer on remission comes in to [facility] today for el ective PCI of RCA. Patient experienced chest discomfort. December 10, she had coronary ang iogram at [facility] in [place] [employer] which showed severe stenosis RCA w/ heavy calcification and tortuosity and moderate disease of LAD. 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 She reports chest soreness, no sob , no palpitation. Post procedure EKG shows nsr w/ rare PVCs w/ HR 80bpm . Telemetry shows nsr. Left groin puncture site soft, no hematoma. At present, she is in RA, NAD. Daughter and gran d daughter are at bedside. Informant/historian: patient, family/other at be dside History Past medical history: Reports: Arthritis, Cancer (lung - remission), C oronary artery disease, Hypertension, Kidney disease/stones. Past surgical history: Reports: Cholecystectomy, Hysterectomy. Family history: Reports: Heart disease (mother, sister, brother) . Alcohol use: Denies EtOH use Drug use: Denies recreational drugs Smoking status: Smoking status for patients 13 years old or old er: Never Smoker Medication/Allergy-Vaccine Hx Medications: Home Medications: Medication Dose/Rte/Freq Days Qty Entered Last Max Daily Dose Reviewed CLOPIDOGREL (PLAVIX) 75 MG PO DAILY 12/14/21 Strength: 75 MG TAB 1152 1212 TOPIRAMATE (TOPAMAX) 25 MG PO BID 12/14/2112/03 Strength: 25 MG TAB 1152 1212 OMEPRAZOLE ER 20 MG PO DAILY 12/14/21 12/15/21 Strength: 20 MG CAP. 1152 1212 METOPROLOL TARTRATE 50 MG PO BID 12/14/2112/15 (LOPRESSOR) 1153 1212 Strength: 50 MG TAB LOSARTAN (COZAAR) 25 MG PO DAILY 12/14/2112/15 Strength: 25 MG TAB 1153 1212 [PROLIA] 60 MG SUBQ 12/14/21 12/15/21 Strength: EVERY 6 MOS 1154 1212 traMADol (ULTRAM) 50 MG PO 12/14/21 12/15/21 Strength: 50 MG TAB Q6H PRN PRN ACUTE 1154 1212 PAIN ASPIRIN 81 MG PO DAILY 07/13/22 07/13/22 Strength: 81 MG TAB.CHEW 1213 1213 ATORVASTATIN (LIPITOR) 40 MG PO BEDTIME 90 90 0 12/15/21 Strength: 40 MG TAB 1423 Current Hospital Medications: Autonomic Drugs Sig/Brandi Start time Last Medication Dose Route Stop Time Status Admin Atropine Sulfate 0.5 MG ASDIR PRN 12/15 1430 AC (ATROPINE SULFATE IV 01/14 1429 0.1MG/ML SYR) Atropine Sulfate 0 .STK-MED ONE 12/15 1344 DC 0 12/15 (ATROPINE SULFATE IV 1354 0.1MG/ML SYR) Blood Formation,Coagulation Sig/Brandi Start time Last Medication Dose Route Stop Time Status Admin Clopidogrel Bisulfate 75 MG DAILY 12/16 0900 AC (Plavix) PO 01/15 0859 Clopidogrel Bisulfate 0 .STK-MED ONE 12/15 1259 DC 12/15 (CLOPIDOGREL .ROUTE 1354 BISULFATE) Heparin Sodium 0 .STK-MED ONE 12/15 1210 DC (HEPARIN SODIUM) .ROUTE 1354 Heparin Sodium/ 1,500 ML .STK-MED ONE 12/15 121 0 DC 12/15 Sodium Chloride IV 1354 (HEPARIN 1,000 UNITS/ NS 500ML) Cardiovascular Drugs Sig/Brandi Start time Last Medication Dose Route Stop Time Status Admin Losartan Potassium 25 MG DAILY 12/16 0900 AC (COZAAR) PO 01/15 0859 Atorvastatin Calcium 40 MG BEDTIME 12/15 2100 A C (LIPITOR) PO 01/14 2059 Metoprolol Tartrate 50 MG BID 12/15 2100 AC (LOPRESSOR) PO 01/14 2059 Hydralazine HCl 10 MG Q6H PRN PRN 12/15 1430 A C (APRESOLINE) IV 01/14 1429 Adenosine 0 .STK-MED ONE 12/15 1319 DC 12/15 (ADENOSCAN) IV 1354 Lidocaine HCl 0 .STK-MED ONE 12/15 1210 DC 12/03 3 (LIDOCAINE HCL/PF) .ROUTE 1354 Nitroglycerin/ 250 ML .STK-MED ONE 12/15 1210 D C 12/15 Dextrose IV 1354 (NITROGLYCERIN 50,000MCG/D5W 250ML) Verapamil HCl 0 .STK-MED ONE 12/15 1210 DC (ISOPTIN) IV Central Nervous System Agents Sig/Brandi Start time Last Medication Dose Route Stop Time Status Admin Aspirin 81 MG DAILY 12/16 0900 AC (ASPIRIN) PO 01/15 0859 Topiramate 25 MG BID 12/15 2100 AC (TOPAMAX) PO 01/14 2059 Tramadol HCl 50 MG Q6H PRN PRN 12/15 1530 AC (ULTRAM) PO 12/20 1529 Acetaminophen 650 MG Q6H PRN PRN 12/15 1430 AC (TYLENOL) PO 01/14 1429 Aspirin 0 .STK-MED ONE 12/15 1300 DC 12/15 (ASPIRIN) .ROUTE 1354 Midazolam HCl 0 .STK-MED ONE 12/15 1253 DC 12/03 3 (VERSED) .ROUTE 1354 Fentanyl Citrate 0 .STK-MED ONE 12/15 1252 DC 12/15 (SUBLIMAZE) .ROUTE 1354 Diagnostic Agents Sig/Brandi Start time Last Medication Dose Route Stop Time Status Admin Iopamidol 0 .STK-MED ONE 12/15 1210 DC 12/15 (ISOVUE-370 100ML) IV 1354 Electrolytic, Caloric, And [place] Sig/Brandi Start time Last Medication Dose Route Stop Time Status Admin Sodium Chloride 1,000 ML .Q10H ONE 12/15 1430 A C 12/15 (SODIUM CHLORIDE IV 12/16 0029 1601 0.9%) Sodium Chloride 500 ML ASDIR PRN 12/15 1430 AC (SODIUM CHLORIDE IV 01/14 1429 0.9%) Sodium Chloride 50 ML .STK-MED ONE 12/15 1322 D C 12/15 (SODIUM CHLORIDE IV 1354 0.9%) Sodium Chloride 250 ML .STK-MED ONE 12/15 1319 DC (SODIUM CHLORIDE IV 0.9%) Gastrointestinal Drugs Sig/Brandi Start time Last Medication Dose Route Stop Time Status Admin Pantoprazole 40 MG DAILY 12/16 0900 AC (PROTONIX) PO 01/15 0859 Ondansetron HCl 4 MG Q6H PRN PRN 12/15 1430 AC (ZOFRAN) IV 01/14 1429 Ondansetron HCl 0 .STK-MED ONE 12/15 1349 DC (ZOFRAN) .ROUTE 1354 Allergies: Coded Allergies: morphine (Severe, RASH 12/14/21) Ambulatory status: Independent Review of Systems Constitutional: Denies: chills, fatigue, fever, generalized weak ness. Skin: Denies: contusion, ecchymosis, laceration. Allergy/Immun: Denies: hives, itching, rhinorrhea. Eyes: Denies: redness, discharge, visual loss/blurred. ENT: Denies: hearing loss, mouth pain, nasal congesti on. Respiratory: Denies: SHAH (dyspnea on exertion), pleurisy, pne umonia, SOB. Cardiovascular: Reports: chest pain. Denies: SHAH (dyspnea on exertion), orthopnea, palpitations , parox nocturnal dyspnea. GI: Denies: diarrhea, dysphagia, rectal pain. : Denies: hematuria. Heme: Denies: bruising, petechiae. Endocrine: Denies: cold intolerance, heat intolerance. Neuro: Denies: change in LOC, headache, lightheaded, we akness. Psych: Denies: change in mental status. Physical Exam VS/I O 24 hour I O ending at 0700: 12/14 1900 13 0700 Intake Total Output Total Balance Patient 48.8 kg Weight Weight Standing scale Measurement Method PATIENT WEIGHT: Weight (lb): 107 Weight (oz): 9.37 Weight (kg): 48.800 General appearance: frail, a lert, awake, oriented, no acute distress, pleasant, conversational, mental status normal, no respira tory distress Head/Eyes: atraumatic, clear cornea ENT: moist mucosal membranes Neck: full range of motion, no JVD Cardiovascular: normal capillary refill, no murm ur Respiratory: decreased breath sounds, no distres s Abdomen/GI: active bowel sounds, soft, non-tende r, no guarding Genitourinary: no flank pain Extremities: normal capillary refill, no clubbin g, no cyanosis 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, oriented X 3, normal speech Psychiatry: no hallucinations, normal affect, no rmal judgment/insight Diagnosis, Assessment Plan Plan discussed with: patient, daughter, family, nurse Free Text DxA P Notes Free Text DxA P Notes: Ms Agarwal is an 81 y/o Female w/ PMHx: HTN, CKD s tage III, OA, Lung cancer on remission comes in to [facility] today for el ective PCI of RCA. Patient experienced chest discomfort. December 10, she had coronary ang iogram at [facility] in [place] which showed severe stenosis RCA w/ heavy calcification and tortuosity and moderate disease of LAD. 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 She reports chest soreness, no sob , no palpitation. Post procedure EKG shows nsr w/ rare PVCs w/ HR 80bpm . Telemetry shows nsr. Left groin puncture site soft, no hematoma. At present, she is in RA, NAD. Daughter and gran d daughter are at bedside. - CAD s/p PCI of RCA x [address] on telemetry. Cardiac diet. Lt groin puncture site w/ sheath intact, no ooz ing, no hematoma. On BB, ASA, Plavix and statins. Will do lipid panel in am. Post procedure EKG normal. Dr. Weaver discussed pt's daughter r/t the proc edure. - HTN. BP control. Cont Losartan 25mg po bid and Metoprolol 50mg p o bid. On Hydralazine PRN. - CKD stage III. Stable. Cont monitor. - h/o Lung cancer CT chest 10/26/21 showed lateral mid lt lung 2.3 x1.2cm parenchymal opacificatrion and 4.5x2.1cm in the posterior rt Lower lung field. Will f/u w/ her outpt onco in [employer] [employer]. plan d/c home in am. Pt and family agree. Quality: Gen Med Crit Care VTE Prophylaxis VTE prophylaxis initiated: yes Electronically Signed by Alexis Manriquez NP on at [address] by [address] Corbin MD on at 1111 [facility] #:[id number] END OF REPORT 2021-12-15 14:31:00-00:00 [id number] [place] [address] PATIENT NAME: FALGUNI AGARWAL ADMIT DATE: 12/15/21 ACCOUNT NO: [id number] ROOM NO: [id number] AGE: 81 REPORT TYPE: OPERATIVE REPORT SEX: F ADMITTING PHYSICIAN:Lane Corbin MD ATTENDING PHYSICIAN:Lane Corbin MD OPERATION DATE: 12/15/2021 PREOPERATIVE DIAGNOSIS: POSTOPERATIVE DIAGNOSIS: PROCEDURES PERFORMED: 1. Selective coronary angiogram. 2. IVUS RCA. 3. CSI severe proximal, mid, and distal RCA. 4. PCI of severe RCA used from distal to proxima l 3.0 x 20 mm Synergy drug-eluting stent overlapped in the mid segment using 3.5 x 32 mm Synergy drug-eluting stent and due t o proximal edge dissection, placed another 3.5 x 12 mm Synergy drug-eluting stent overlapped with th e first two. SURGEON: Dae Weaver MD AIRCRAFT MAINTENANCE ENGINEER: ANESTHESIA: INDICATIONS: Known severe coronary artery diseas e and planned PCI. COMPLICATIONS: None. BLEEDING: Less than 20 mL. TOTAL SEDATION TIME: 125 minutes. Used fentanyl and Versed. ACCESS: Right femoral artery, 6-Belizean closed wi th manual pressure. COMPLICATIONS: None. DESCRIPTION OF PROCEDURE: After risks, benefits, and alternatives were explained, the patient agreed to proceed and sig arielle informed consent. The patient was brought to the cardiac catheterizati on laboratory, prepped and draped in usual sterile fashion. Then, we gave f entanyl and Versed in incremental doses to achieve adequate moderate s edation, then we accessed the left femoral artery using micropuncture kit and fluoroscopy and ultrasound guidance and placed a 6-Belizean Alpha sheath a nd then took a 6-Belizean JR4 guide into the aortic root, engaged the RCA, took standard views and sent a long Runthrough to the distal portion and using the m icrocatheter exchanged for a ViperWire and did CSI atherectomy low an d high speed and then used 3.0 x 20 mm PATIENT NAME: FALGUNI AGARWAL 19 NC balloon to predilate the lesions and used IVU S to appropriately size the vessel and then placed 3.0 x 20 mm Synergy drug- eluting stent distally overlapped by 3.5 x 32 mm Sy nergy drug-eluting stent in the mid segment and then 3.5 x 12 mm in the proximal segment up t o cover an edge dissection. Overlapped areas were postdilated using a 4.0 x 15 NC balloon and then final angiogram was satisfactory. IVUS post-stent placement showed g ood apposition and then I removed the wire, took standard angiograms and r esults were excellent and I removed the guide and the sheath was removed and manual pressure was used for hemostasis. CONCLUSION: Severe heavily c alcified proximal, mid, and distal RCA, status post CSI atherectomy IVUS-guided PCI as above. PLAN: Continue aspirin and Plavix. She is alread y chronically on Plavix since April. Continue that along with aspirin and P lavix and high-dose statin. Follow up with me in the office in 1 week. Dictated By: Dae Weaver MD WT: OP:IVANNA/DENTON/MARCIN Conf#: [id number]/DID#: [id number] Authenticated by Dae Weaver MD On 04/06/2022 09:56:07 AM Electronically Signed by Dae Weaver MD on at 0956 PATIENT NAME: FALGUNI AGARWAL 19 2021-12-14 12:55:00-00:00 [id number] [place] [address] PATIENT NAME: FALGUNI AGARWAL ADMIT DATE: 12/15/21 ACCOUNT NO: [id number] ROOM NO: AGE: 81 REPORT TYPE: eELECTROCARDIOGRAM REPORT SEX: F ADMITTING PHYSICIAN: ATTENDING PHYSICIAN:Dae Weaver MD Order: [id number] Test Reason : CAD Test Date/Time Stamp: MonDec 14 2021 12:55:02 Blood Pressure : / mmHG Vent. Rate : 062 BPM Atrial Rate : 062 BPM P-R Int : 130 ms QRS Dur : 078 ms QT Int : 440 ms P-R-T Axes : 074 008 057 degree s QTc Int : 446 ms Sinus rhythm with sinus arrhythmia with occasion al premature ventricular complexes Possible Anterior infarct , age undetermined Abnormal ECG No previous ECGs available Confirmed by VASILIY SCHULER MD ([id number]) on 12/16/19 11:58:05 AM Referred By: No Physician Confirmed by:VASILIY BOND MD at 7973 PATIENT NAME: FALGUNI AGARWAL 18
[2023-01-16] MEDS ORDERED: NA CHLORIDE 0.9% 1,000 ML ONE (15:03)
[2023-01-16 15:27] LABS: Absolute Lymphocytes (CBC) 1.5 K/uL (0.7-4.9); Hematocrit 37.2 % (36.0-45.0); Lymphocytes % 13.8 % (15.3-44.8); MCV 95.1 fL (80-100); Platelets 222 thou/uL (152-406); RBC Red Blood Cell Count 3.91 M/uL (3.86-4.86)
[2023-01-16 15:29] LABS: Protime INR 0.92
--- NOTE | 2023-01-16 15:43 | RAD REPORT ---
EXAM DESCRIPTION: RAD - Chest Single View - 01/16/2023 3:36 pm CLINICAL HISTORY: DYSPNEA Chest pain. COMPARISON: <Comparisons> FINDINGS: Portable technique limits examination quality. Significant emphysematous changes are present. Left pleural thickening is with scarring in the latera l aspect of the left mid lung. The heart is mildly prominent. Aortic atherosclerosis. IMPRESSION: Prominent COPD with left-sided scarring, unchanged.
[2023-01-16 15:48] LABS: Albumin 3.6 g/dL (3.4-5.0); Bilirubin Direct 0.2 mg/dL (0-0.2); Bilirubin Indirect, Calculated 0.1 mg/dL (0.2-0.8); Bilirubin Total 0.3 mg/dL (0.2-1.0); Magnesium 2.4 mg/dL (1.6-2.4); Potassium 4.5 mEq/L (3.5-5.1); Protein, Total 7.6 g/dL (6.4-8.2); Troponin High Sensitivity 15.5 pg/mL (<58.9)
--- NOTE | 2023-01-16 15:48 | RAD REPORT ---
EXAM DESCRIPTION: CT - Spine Lumbar Wo Con - 01/16/2023 3:31 pm CLINICAL HISTORY: Radiculopathy. PAIN COMPARISON: Abdomen Pelvis Wo Contrast dated 02/24/2022; Abdomen Pelvis Wo Contrast dated 2 TECHNIQUE: Axial noncontrast CT imaging of the lumbar spine was performed with coronal and sagittal re-formatted images. All CT scans are performed using dose optimization technique as appropriate and may include automated exposure control or mA/KV adjustment according to patient size. FINDINGS: Chronic compression fracture is seen involving L2 vertebral body. This appears unchanged s farhan the 02/24/22 study. 10 mm degenerative anterolisthesis of L5 on S1 vacuum disc degeneration is n oted. Bilateral spondylolysis is also present. Paraspinal tissues are normal in thickness. No paraspinal abscess or hematoma seen. Punctate calculi in both kidneys without hydronephrosis. Significant aortoiliac atherosclerosis. IMPRESSION: 10 mm degenerative anterolisthesis L5 on S1. Chronic compression fracture affects L2 with moderate canal narrowing. Punctate bilateral nephrolithiasis without hydronephrosis.
--- NOTE | 2023-01-16 16:25 | ER ---
Nurse's Notes [facility] Name: Falguni Marcelino Age: 82 yrs Sex: Female : 1940 Arrival Date: 01/16/2023 Time: 13:47 Bed 15 Private MD: Diagnosis: Low back pain-9 MM ANTEROLISTHESIS L5-S1;Unspecified kidney failure-CHRONIC KIDNEY ;COPD/ Chronic obstructive pulmonary disease, unspecified Presentation: 01/16 14:18 Chief complaint: Patient states: new onset of lower back pain that started this me1 morning. c/o nausea and diarrhea. c/o sob and dizziness with exertion. Coronavirus screen: Vaccine status: Patient reports receiving the 2nd dose of the covid vaccine. At this time, the client does not indicate any symptoms associated with coronavirus-19. Ebola Screen: Patient negative for fever greater than or equal to 101.5 degrees Fahrenheit, and additional compatible Ebola Virus Disease symptoms. Initial Sepsis Screen: Does the patient meet any 2 criteria? No. Patient's initial sepsis screen is negative. Does the patient have a suspected source of infection? No. Patient's initial sepsis screen is negative. Risk Assessment: Do you want to hurt yourself or someone else? Patient reports no desire to harm self or others. Onset of symptoms was January 16, 2023. 14:18 Method Of Arrival: Ambulatory [facility] [place] 14:18 Acuity: BRYANT 3 ne1 Triage Assessment: 17:17 General: Appears in no apparent distress. db Historical: - Allergies: 14:29 Morphine; me1 - PMHx: 14:29 Hypertension; Hypothyroidism; Lung Cancer; me1 - PSHx: 14:29 Appendectomy; hysterectomy; Heart Stents; me1 - Immunization history:: Adult Immunizations up to date. - Social history:: Smoking status: Patient/guardian denies using tobacco, but has a distant history of tobacco abuse. Screenin:31 [facility] ED Fall Risk Assessment (Adult) History of falling in the last 3 months, db including since admission No falls in past 3 months (0 pts) Confusion or Disorientation No (0 pts) Intoxicated or Sedated No (0 pts) Impaired Gait No (0 pts) Mobility Assist Device Used No (0 pt) Altered Elimination No (0 pt) Score/Fall Risk Level 0 - 2 = Low Risk Oriented to surroundings, Maintained a safe environment. Abuse screen: Denies threats or abuse. Denies injuries from another. Nutritional screening: No deficits noted. Tuberculosis screening: No symptoms or risk factors identified. Assessment: 15:04 General: Appears in no apparent distress. comfortable, Behavior is calm, cooperative, nj1 appropriate for age. Pain: Complains of pain in right lower quadrant Pain currently is 3 out of 10 on a pain scale. Neuro: Level of Consciousness is awake, alert, obeys commands, Oriented to person, place, time, situation. Cardiovascular: Patient's skin is warm and dry. Respiratory: Airway is patent Respiratory effort is even, unlabored. GI: Abd is soft and non tender X 4 quads. Reports lower abdominal pain, Patient currently denies nausea. 15:55 Reassessment: PATIENT AMBULATORY TO RESTROOM. db 16:30 Reassessment: Patient appears in no apparent distress at this time. Patient and/or db family updated on plan of care and expected duration. Pain level reassessed. Patient is alert, oriented x 3, equal unlabored respirations, skin warm/dry/pink. Vital Signs: 14:18 BP 123 / 75; Pulse 82; Resp 16; Temp 97.7; Weight 65.77 kg; Height 4 ft. 9 in. ; Pain me1 9/10; 15:04 BP 150 / 65; Pulse 65; Resp 16; Pulse Ox 100% ; Pain 3/10; nj1 16:30 BP 160 / 77; Pulse 67; Resp 16; Pulse Ox 98% on R/A; db 14:18 Body Mass Index 31.38 (65.77 kg, 144.78 cm) me1 14:18 Pain Scale: Adult me1 15:04 Pain Scale: Adult nj1 Chaim Coma Score: 16:21 Eye Response: spontaneous(4). Motor Response: obeys commands(6). Verbal Response: vasquez oriented(5). Total: 15. ED Course: 13:50 Patient arrived in ED. im 14:24 Triage completed. me1 14:29 Arm band placed on Patient placed in waiting room. me1 14:32 Tonny Butler MD is Attending Physician. vasquez 14:39 Kay Arzate RN is Primary Nurse. db 15:19 Inserted saline lock: 22 gauge in right forearm, using aseptic technique. Blood db collected. 15:30 CT Lumbar Spine Wo Con In Process Unspecified. EDMS 15:31 Patient has correct armband on for positive identification. Bed in low position. Call db light in reach. Side rails up X2. Client placed on continuous cardiac and pulse oximetry monitoring. NIBP monitoring applied. Warm blanket given. 15:37 XRAY Chest (1 view) In Process Unspecified. EDMS 16:22 Dae Weaver MD is Referral Physician. [facility] 16:22 Boogie Cotter MD is Referral Physician. [facility] 17:18 Provided Education on: DISCHARGE. db 17:18 No provider procedures requiring assistance completed. db 17:19 IV discontinued, intact, bleeding controlled. db Administered Medications: 15:21 Drug: NS 0.9% IV 1000 ml Route: IV; Rate: 125 ml/hr; Site: right forearm; db 15:21 Drug: NS 0.9% IV 500 ml Route: IV; Rate: bolus; Site: right forearm; db 16:57 Not Given (Patient Refused): fentaNYL (PF) IVP 25 mcg IVP once db 17:05 Drug: Diazepam PO 5 mg Route: PO; db 17:10 Drug: Decadron - Dexamethasone IVP 10 mg Route: IVP; Site: right antecubital; db 17:10 Drug: Ondansetron IVP 4 mg Route: IVP; Site: right antecubital; db Medication: 17:18 VIS not applicable for this client. db Outcome: 16:25 Discharge ordered by . vasquez 17:18 Discharged to home ambulatory, with family. db 17:18 Condition: stable 17:18 Discharge instructions given to patient, family, Instructed on follow up and referral plans. Prescriptions given X 3. 17:29 Patient left the ED. db Signatures: Dispatcher [employer] EDNH Tonny Butler MD MD cha Benton, Danielle, RN RN db Eve Haywood RN RN nj1 Josephine Romo Michelle, RN RN me1 Corrections: (The following items were deleted from the chart) 15:31 15:30 Inserted saline lock: 22 gauge in right forearm, using aseptic technique. Blood db collected. db
--- NOTE | 2023-01-16 16:25 | EDPHYS ---
Physician Documentation [facility] Name: Falguni Marcelino Age: 82 yrs Sex: Female : 1940 Arrival Date: 01/16/2023 Time: 13:47 Bed 15 Private MD: ED Physician Tonny Butler HPI: 01/16 15:08 This 82 yrs old Female presents to ER via Ambulatory with complaints of Low vasquez Back Pain. 15:08 The patient presents with pain that is acute, with no known mechanism of injury. The vasquez symptoms are located in the low back. The pain does not radiate. The problem was sustained from unknown cause. Onset: The symptoms/episode began/occurred this morning, today. Modifying factors: The patient symptoms are alleviated by remaining still, the patient symptoms are aggravated by any movement, bending, walking. Associated signs and symptoms: Pertinent positives: none weakness. Severity of symptoms: At their worst the symptoms were mild, moderate, in the emergency department the symptoms are unchanged. The patient has not experienced similar symptoms in the past. Historical: - Allergies: 14:29 Morphine; me1 - PMHx: 14:29 Hypertension; Hypothyroidism; Lung Cancer; me1 - PSHx: 14:29 Appendectomy; hysterectomy; Heart Stents; me1 - Immunization history:: Adult Immunizations up to date. - Social history:: Smoking status: Patient/guardian denies using tobacco, but has a distant history of tobacco abuse. ROS: 15:09 Constitutional: Negative for fever, chills, and weight loss, Eyes: Negative for injury, vasquez pain, redness, and discharge, ENT: Negative for injury, pain, and discharge, Neck: Negative for injury, pain, and swelling, Cardiovascular: Negative for chest pain, palpitations, and edema, Respiratory: Negative for shortness of breath, cough, wheezing, and pleuritic chest pain, Abdomen/GI: Negative for abdominal pain, nausea, vomiting, diarrhea, and constipation, : Negative for injury, bleeding, discharge, and swelling, MS/Extremity: Negative for injury and deformity, Skin: Negative for injury, rash, and discoloration, Neuro: Negative for headache, weakness, numbness, tingling, and seizure, Psych: Negative for depression, anxiety, suicide ideation, homicidal ideation, and hallucinations, Allergy/Immunology: Negative for hives, rash, and allergies, Endocrine: Negative for neck swelling, polydipsia, polyuria, polyphagia, and marked weight changes. 15:09 Back: Positive for decreased range of motion, pain at rest, pain with movement, of the lumbar area. 15:09 MS/extremity: Negative for decreased range of motion, swelling, tenderness. Exam: 15:09 Constitutional: This is a well developed, well nourished patient who is awake, alert, vasquez and in no acute distress. Head/Face: Normocephalic, atraumatic. Eyes: Pupils equal round and reactive to light, extra-ocular motions intact. Lids and lashes normal. Conjunctiva and sclera are non-icteric and not injected. Cornea within normal limits. Periorbital areas with no swelling, redness, or edema. ENT: Nares patent. No nasal discharge, no septal abnormalities noted. Tympanic membranes are normal and external auditory canals are clear. Oropharynx with no redness, swelling, or masses, exudates, or evidence of obstruction, uvula midline. Mucous membranes moist. Neck: Trachea midline, no thyromegaly or masses palpated, and no cervical lymphadenopathy. Supple, full range of motion without nuchal rigidity, or vertebral point tenderness. No Meningismus. Chest/axilla: Normal chest wall appearance and motion. Nontender with no deformity. No lesions are appreciated. Cardiovascular: Regular rate and rhythm with a normal S1 and S2. No gallops, murmurs, or rubs. Normal PMI, no JVD. No pulse deficits. Respiratory: Lungs have equal breath sounds bilaterally, clear to auscultation and percussion. No rales, rhonchi or wheezes noted. No increased work of breathing, no retractions or nasal flaring. Abdomen/GI: Soft, non-tender, with normal bowel sounds. No distension or tympany. No guarding or rebound. No evidence of tenderness throughout. Back: No spinal tenderness. No costovertebral tenderness. Full range of motion. Female : Normal external genitalia. Skin: Warm, dry with normal turgor. Normal color with no rashes, no lesions, and no evidence of cellulitis. MS/ Extremity: Pulses equal, no cyanosis. Neurovascular intact. Full, normal range of motion. Neuro: Awake and alert, GCS 15, oriented to person, place, time, and situation. Cranial nerves II-XII grossly intact. Motor strength 5/5 in all extremities. Sensory grossly intact. Cerebellar exam normal. Normal gait. Psych: Awake, alert, with orientation to person, place and time. Behavior, mood, and affect are within normal limits. 16:21 ECG was reviewed by the Attending Physician. [facility] Vital Signs: 14:18 BP 123 / 75; Pulse 82; Resp 16; Temp 97.7; Weight 65.77 kg; Height 4 ft. 9 in. ; Pain me1 9/10; 15:04 BP 150 / 65; Pulse 65; Resp 16; Pulse Ox 100% ; Pain 3/10; nj1 16:30 BP 160 / 77; Pulse 67; Resp 16; Pulse Ox 98% on R/A; db 14:18 Body Mass Index 31.38 (65.77 kg, 144.78 cm) me1 14:18 Pain Scale: Adult me1 15:04 Pain Scale: Adult nj1 Chaim Coma Score: 16:21 Eye Response: spontaneous(4). Motor Response: obeys commands(6). Verbal Response: vasquez oriented(5). Total: 15. MDM: 14:32 Patient medically screened. vasquez 15:11 Differential diagnosis: arthritis, strain, fracture, sciatica, contusion, Herniated vasquez disc UTI. Data reviewed: vital signs, nurses notes, lab test result(s), EKG, radiologic studies, CT scan, plain films. Consideration of Admission/Observation Escalation of care including admission/observation considered. I considered the following discharge prescriptions or medication management in the emergency department Medications were administered in the Emergency Department. See MAR. Test considered but Not performed: Ultrasound NO ABDOMINAL USG. Historians other than the Patient: Family Member: GRANDDAUGHTER. Care significantly affected by the following chronic conditions: Hypertension, Cancer, HYPOTHYROID. Counseling: I had a detailed discussion with the patient and/or guardian regarding: the historical points, exam findings, and any diagnostic results supporting the discharge/admit diagnosis, lab results, radiology results, the need for outpatient follow up, for definitive care, a ball assembler, a family practitioner. ED course: . 01/16 14:37 Order name: Basic Metabolic Panel; Complete Time: 16:00 [facility] 01/16 14:37 Order name: CBC with Diff; Complete Time: 15:47 [facility] 01/16 14:37 Order name: LFT's; Complete Time: 16:00 [facility] 01/16 14:37 Order name: Magnesium; Complete Time: 16:00 [facility] 01/16 14:37 Order name: NT PRO-BNP; Complete Time: 16:00 [facility] 01/16 14:37 Order name: PT-INR; Complete Time: 15:47 01/16 14:37 Order name: Troponin HS; Complete Time: 16:00 [facility] 01/16 14:37 Order name: Lipase; Complete Time: 16:00 [facility] 01/16 14:37 Order name: Urinalysis w/ reflexes; Complete Time: 17:20 01/16 14:37 Order name: XRAY Chest (1 view); Complete Time: 15:47 [facility] 01/16 14:37 Order name: CT Lumbar Spine Wo Con; Complete Time: 16:00 [facility] 01/16 14:37 Order name: EKG; Complete Time: 14:38 [facility] 01/16 14:37 Order name: Cardiac monitoring; Complete Time: 15:35 [facility] 01/16 14:37 Order name: EKG - Nurse/Tech; Complete Time: 15:22 [facility] 01/16 14:37 Order name: IV Saline Lock; Complete Time: 15:35 [facility] 01/16 14:37 Order name: Labs collected and sent; Complete Time: 15:35 [facility] 01/16 14:37 Order name: O2 Per Protocol; Complete Time: 15:35 [facility] 01/16 14:37 Order name: O2 Sat Monitoring; Complete Time: 15:35 [facility] EC:21 Rate is 73 beats/min. Rhythm is regular. QRS [place] is Normal. MA interval is normal. QRS vasquez interval is normal. QT interval is normal. No Q waves. T waves are Normal. No ST changes noted. Clinical impression: NSR w/ Non-specific ST/T Changes and No evidence of ischemia. Interpreted by me. Reviewed by me. Administered Medications: 15:21 Drug: NS 0.9% IV 1000 ml Route: IV; Rate: 125 ml/hr; Site: right forearm; db 15:21 Drug: NS 0.9% IV 500 ml Route: IV; Rate: bolus; Site: right forearm; db 16:57 Not Given (Patient Refused): fentaNYL (PF) IVP 25 mcg IVP once db 17:05 Drug: Diazepam PO 5 mg Route: PO; db 17:10 Drug: Decadron - Dexamethasone IVP 10 mg Route: IVP; Site: right antecubital; db 17:10 Drug: Ondansetron IVP 4 mg Route: IVP; Site: right antecubital; db Disposition Summary: 01/16/23 16:25 Discharge Ordered Location: Home vasquez Problem: new vasquze Symptoms: have improved vasquez Condition: Stable vasquez Diagnosis - Low back pain - 9 MM ANTEROLISTHESIS L5-S1 vasquez - Unspecified kidney failure - CHRONIC KIDNEY vasquez - COPD/ Chronic obstructive pulmonary disease, unspecified vasquez Followup: vasquez - With: Private Physician - When: 2 - 3 days - Reason: Recheck today's complaints, Continuance of care, Re-evaluation by your physician Followup: vasquez - With: Dae Weaver MD - When: 2 - 3 days - Reason: Recheck today's complaints, Re-evaluation by your physician Followup: vasquez - With: Boogie Cotter MD - When: 2 - 3 days - Reason: Recheck today's complaints, Re-evaluation by your physician Discharge Instructions: - Discharge Summary Sheet vasquez - Acute Back Pain, Adult vasquez - Chronic Back Pain vasquez - Chronic Obstructive Pulmonary Disease vasquez - Musculoskeletal Pain vasquez - Chronic Obstructive Pulmonary Disease, [id number] vasquez - Chronic Back Pain, [id number] vasquez - Aspirin and Your Heart [facility] - Chronic Kidney Disease, Adult, [id number] [facility] - Chronic Kidney Disease, Adult [facility] Forms: - Medication Reconciliation Form [facility] - Thank You Letter [facility] - Antibiotic Education vasqeuz - Prescription Opioid Use [facility] - Patient Portal Instructions [facility] - Leadership Thank You Letter [facility] Prescriptions: - acetaminophen-codeine 300-30 mg Oral tablet - take 2 tablet by ORAL route every 6 hours as needed for pain; 20 tablet; [facility] Refills: 0, Product Selection Permitted - dexamethasone 2 mg Oral tablet - take 1 tablet by ORAL route every 12 hours; 8 tablet; Refills: 0, Product [facility] Selection Permitted - Cyclobenzaprine 5 mg Oral Tablet - take 1 tablet by ORAL route 3 times per day As needed; 15 tablet; Refills: 0, [facility] Product Selection Permitted Signatures: Dispatcher [employer] Tonny Marte MD MD cha Benton, Danielle RN RN db Amelia Justice RN RN me1
[2023-01-16 16:33] LABS: Transitional Epithelial <5 /HPF (None Seen); Urine Bacteria <20 /HPF (<20); Urine Bilirubin NEGATIVE (Negative); Urine Blood Negative (Negative); Urine Clarity Clear (Clear); Urine Color Colorless (Yellow); Urine Glucose NEGATIVE (Negative); Urine Protein NEGATIVE (Negative); Urine RBC <5 /HPF (None Seen); Urine Urobilinogen Normal (Normal); Urine pH 7.5 (5.0-7.0)
[2023-01-16] MEDS ORDERED: DIAZEPAM 5 MG TABLET ONE (17:05)
[2023-01-16] MEDS ORDERED: dexAMETHasone 10 MG/ML VIAL ONE (17:06)
[2023-01-16] MEDS ORDERED: ONDANSETRON 4 MG/2 ML VIAL ONE (17:06)
[2023-01-16 18:01] VITALS: TEMP 97.7
[2023-01-16 18:05] VITALS: BP 160/77; O2SAT 98
--- NOTE | 2023-01-17 17:03 | EKG ---
Test Date: 2023-01-16 Test Time: 15:16:57 Headmaster/Mistress: GIBSON MEASUREMENT RESULTS: Intervals: Rate: 73 AL: 134 QRSD: 72 QT: 428 QTc: 471 [place]: P: 62 AL: 134 QRS: 34 T: 61 INTERPRETIVE STATEMENTS: Normal sinus rhythm Normal ECG Compared to ECG 02/24/2022 20:19:18 No significant changes Electronically Signed On 01-17-23 17:02:43 CDT by Dae Weaver
== END 2023-01-16 17:29 | disposition home or self-care (01) ==
LOC: ER 13:47
DX: M54.59 Other low back pain (principal); N18.9 Chronic kidney disease, unspecified; J44.9 Chronic obstructive pulmonary disease, unspecified; Z88.5 Allergy status to narcotic agent; I10 Essential (primary) hypertension; E03.9 Hypothyroidism, unspecified
CPT/HCPCS: 85025; 81001; 80048; 36415; 83735; 85610; 80076; 84484; 83690; 83880; 72131; 71045; J1100; J2405; J7030; 93005

== ENCOUNTER 2024-07-29 10:22 | Emergency (ER) | payer OTHER ==
--- NOTE | 2024-07-29 12:25 | EDPHYS ---
Physician Documentation [facility] Name: Falguni Marcelino Age: 84 yrs Sex: Female : 1940 Arrival Date: 07/29/2024 Time: 10: Bed 2 Private MD: ED Physician Lance Esteves HPI: 07/29 10:50 This 84 yrs old Female presents to ER via Wheelchair with complaints of Constipation. ms3 10:50 84-year-old female with past medical history of hypertension, hypothyroidism, lung ms3 cancer presents to the emergency department for constipation is been ongoing for 3 days. Patient states this morning she attempted a Fleet enema with minimal success. Patient states she has the urge to defecate and has been unable to go to the restroom. This is caused her to be up all night trying to have a bowel movement. Patient denies fevers, chills, nausea, vomiting. Patient notes she is taking Dilaudid for pain.. Historical: - Allergies: 10:41 Morphine; aa5 - PMHx: 10:41 Hypertension; Hypothyroidism; Lung Cancer; aa5 - PSHx: 10:41 Appendectomy; Heart Stents; hysterectomy; aa5 - Immunization history:: Adult Immunizations unknown. - Infectious Disease History:: Denies. - Social history:: Smoking status: Patient denies any tobacco usage or history of. ROS: 10:50 Constitutional: Negative for fever, and chills. Cardiovascular: Negative for chest ms3 pain, and palpitations. Respiratory: Negative for shortness of breath, cough, wheezing, and pleuritic chest pain, 10:50 Skin: Negative for injury, rash, and discoloration, 10:50 Abdomen/GI: Positive for constipation, Negative for nausea, vomiting, and diarrhea, Exam: 10:50 Constitutional: This is a well developed, well nourished patient who is awake, alert, ms3 and in no acute distress. Cardiovascular: Regular rate and rhythm with a normal S1 and S2. No gallops, murmurs, or rubs. Normal PMI, no JVD. No pulse deficits. Respiratory: Lungs have equal breath sounds bilaterally, clear to auscultation and percussion. No rales, rhonchi or wheezes noted. No increased work of breathing, no retractions or nasal flaring. Abdomen/GI: Soft, non-tender, with normal bowel sounds. No distension or tympany. No guarding or rebound. No evidence of tenderness throughout. Skin: Warm, dry with normal turgor. Normal color with no rashes, no lesions, and no evidence of cellulitis. MS/ Extremity: Pulses equal, no cyanosis. Neurovascular intact. Full, normal range of motion. Vital Signs: 10:41 BP 165 / 70; Pulse 74; Resp 18 S; Temp 97.8(O); Pulse Ox 100% on R/A; Weight 43.09 kg aa5 (R); Height 4 ft. 9 in. (R); 10:41 Body Mass Index 20.56 (43.09 kg, 144.78 cm) aa5 MDM: 10:48 Medical Screening Exam initiated ms3 10:50 Differential diagnosis: Constipation secondary to opioid use vs obstruction- less ms3 likely as patient is without pain or emesis vs Diverticulitis- less likely as patient is without abdominal pain. 12:25 Data reviewed: vital signs, nurses notes, and as a result, I will discharge patient. I ms3 considered the following discharge prescriptions or medication management in the emergency department Medications were administered in the Emergency Department. See MAR. Care significantly affected by the following chronic conditions: Hypertension, Cancer. Counseling: I had a detailed discussion with the patient and/or guardian regarding the historical points, exam findings, and any diagnostic results supporting the discharge/admit diagnosis, the need for outpatient follow up, to return to the emergency department if symptoms worsen or persist or if there are any questions or concerns that arise at home. Special discussion: I discussed with the patient/guardian in detail that at this point there is no indication for admission to the hospital. It is understood, however, that if the symptoms persist or worsen the patient needs to return immediately for re-evaluation. ED course: On reevaluation patient was able to have bowel movement after soapsuds enema. Patient states her symptoms have resolved. Patient to follow-up with her primary care physician 2 to 3 days. Patient understands and agrees with plan. All questions were answered. Return precautions discussed include worsening symptoms, or any other concerns.. Administered Medications: 12:05 Drug: soap suds enem 1 units FL once Route: FL; ss 12:20 Follow up: Response: No adverse reaction; Marked relief of symptoms ss Disposition Summary: 07/29/24 12:25 Discharge Ordered Notes: Location: Home ms3 Condition: Stable ms3 Diagnosis - Constipation ms3 Followup: ms3 - With: Private Physician - When: 2 - 3 days - Reason: Recheck today's complaints Discharge Instructions: - Discharge Summary Sheet ms3 - Constipation, Adult ms3 Forms: - Medication Reconciliation Form ms3 - Antibiotic Education ms3 - Prescription Opioid Use ms3 - Patient Portal Instructions ms3 - Leadership Thank You Letter ms3 Signatures: Luyc Peterson, RN RN aa5 Kaia Joseph RN RN ss Lance Esteves DO DO ms3
--- NOTE | 2024-07-29 12:25 | ER ---
Nurse's Notes [facility] Name: Falguni Marcelino Age: 84 yrs Sex: Female : 1940 Arrival Date: 07/29/2024 Time: 10:22 Bed 2 Private MD: Diagnosis: Constipation Presentation: 07/29 10:41 Chief complaint: Patient states: constipation x 3 days and abdominal pain. Coronavirus aa5 screen: At this time, the client does not indicate any symptoms associated with coronavirus-19. Ebola Screen: Patient denies travel to an Ebola-affected area in the 21 days before illness onset. Initial Sepsis Screen: Does the patient meet any 2 criteria? No. Patient's initial sepsis screen is negative. Does the patient have a suspected source of infection? No. Patient's initial sepsis screen is negative. Risk Assessment: Do you want to hurt yourself or someone else? Patient reports no desire to harm self or others. Onset of symptoms was July 2024. 10:41 Method Of Arrival: Wheelchair aa5 10:41 Acuity: BRYANT 3 aa5 Historical: - Allergies: 10:41 Morphine; aa5 - PMHx: 10:41 Hypertension; Hypothyroidism; Lung Cancer; aa5 - PSHx: 10:41 Appendectomy; Heart Stents; hysterectomy; aa5 - Immunization history:: Adult Immunizations unknown. - Infectious Disease History:: Denies. - Social history:: Smoking status: Patient denies any tobacco usage or history of. Screenin:34 Abuse screen: Denies threats or abuse. Denies injuries from another. Nutritional ss screening: No deficits noted. Tuberculosis screening: Never had TB. Assessment: 11:45 General: Appears in no apparent distress. Behavior is calm, cooperative. Respiratory: ss Airway is patent Respiratory effort is even, unlabored, Respiratory pattern is regular, symmetrical. GI: Bowel sounds present X 4 quads. Abd is soft X 4 quads Reports constipation. : Denies burning with urination, urinary frequency. EENT: Oral mucosa is moist. Derm: Skin is normal, Skin temperature is warm. 12:34 Reassessment: Patient appears in no apparent distress at this time. Patient and/or ss family updated on plan of care and expected duration. Pain level reassessed. Patient is alert, oriented x 3, equal unlabored respirations, skin warm/dry/pink. Patient states feeling better. Patient states symptoms have improved. Neuro: Level of Consciousness is awake, alert, obeys commands. Vital Signs: 10:41 BP 165 / 70; Pulse 74; Resp 18 S; Temp 97.8(O); Pulse Ox 100% on R/A; Weight 43.09 kg aa5 (R); Height 4 ft. 9 in. (R); 10:41 Body Mass Index 20.56 (43.09 kg, 144.78 cm) aa5 ED Course: 10:27 Patient arrived in ED. cj3 10:31 Lance Esteves DO is Attending Physician. ms3 10:41 Arm band placed on Patient placed in an exam room, on a stretcher. aa5 10:42 Triage completed. aa5 11:18 Kaia Joseph, RN is Primary Nurse. ss 11:45 Patient has correct armband on for positive identification. ss 12:34 No provider procedures requiring assistance completed. Patient did not have IV access ss during this emergency room visit. Administered Medications: 12:05 Drug: soap suds enem 1 units UT once Route: UT; ss 12:20 Follow up: Response: No adverse reaction; Marked relief of symptoms ss Medication: 12:34 VIS not applicable for this client. ss Outcome: 12:25 Discharge ordered by MD. ms3 12:34 Discharged to home via wheelchair, with family, ss 12:34 Condition: improved 12:34 Discharge instructions given to patient, family, Instructed on discharge instructions, follow up and referral plans. Demonstrated understanding of instructions, follow-up care, 12:35 Patient left the ED. ss Signatures: Lucy Peterson RN RN aa Kaia Joseph, GERARD RN ss Lance Esteves DO DO ms3 Queenie Aranda cj3
[2024-07-29 12:47] VITALS: BP 165/70; TEMP 97.8; O2SAT 100
== END 2024-07-29 12:35 | disposition home or self-care (01) ==
LOC: ER 10:22
DX: K59.00 Constipation, unspecified (principal)
CPT/HCPCS: 99283

== ENCOUNTER 2025-03-15 20:06 | Inpatient (IN) | payer OTHER ==
[2025-03-15] MEDS ORDERED: ONDANSETRON 4 MG/2 ML VIAL ONE (20:49)
[2025-03-15] MEDS ORDERED: NA CHLORIDE 0.9% 500 ML ONE (20:50)
[2025-03-15] MEDS ORDERED: FENTANYL CITR 100 MCG/2 ML ONE (20:50)
[2025-03-15 21:10] LABS: Absolute Lymphocytes (CBC) 1.5 K/uL (0.7-4.9); Hematocrit 34.1 % (36.0-45.0); Hemoglobin 11.2 g/dL (12.0-15.0); MCH 30.2 pg (27.0-35.0); MCHC 32.8 g/dL (32.0-36.0); MCV 92.2 fL (80-100); MPV 9.6 fL (7.6-11.3); Nucleated RBC Absolute Count 0.0 (0-0); Nucleated Red Blood Cells % 0.0 % (0-0); RBC Red Blood Cell Count 3.70 M/uL (3.86-4.86); White Blood Count 13.30 thou/uL (4.3-10.9)
[2025-03-15 21:30] LABS: PT Prothrombin Time 12.8 SECONDS (10-13.0); Protime INR 1.14
[2025-03-15 21:33] LABS: ALT/SGPT 26 U/L (13-56); AST/SGOT 27 U/L (15-37); Albumin 3.3 g/dL (3.4-5.0); Albumin/Globulin Ratio 0.7 (1.1-1.8); Alkaline Phosphatase 88 U/L (45-117); Anion Gap 10.2 mEq/L (5.0-15.0); BUN Blood Urea Nitrogen 36 mg/dL (7-18); Globulin 4.5 g/dL (2.3-3.5); Glucose Level 103 mg/dL (74-106); Lipase 25 U/L (13-75); Magnesium 2.3 mg/dL (1.6-2.4); NT PRO-BNP 3766 pg/mL (<450); Potassium 4.2 mEq/L (3.5-5.1); Troponin High Sensitivity 14.2 pg/mL (<58.9)
[2025-03-15 21:41] LABS: Bilirubin Indirect, Calculated 0.1 mg/dL (0.2-0.8)
--- NOTE | 2025-03-15 21:56 | RAD REPORT ---
EXAM: CT CHEST, ABDOMEN AND PELVIS WITHOUT CONTRAST CLINICAL INDICATION: Female, 84 years old. [facility] MAIN PAIN Bed Name: 4 TECHNIQUE: CT chest, abdomen and pelvis was performed, without IV contrast, as per department protoco l. Axial, sagittal and coronal reconstructions were obtained. One or more of the following dose reduction techniques were used: Automated exposure control, adjustment of the mA and/or kV according to the patient size, and/or iterative reconstruction. Unless otherwise specified, incidental findings do not require dedicated imaging follow-up. COMPARISON: CT chest 10/02/2023. FINDINGS: The lack of intravenous contrast limits the sensitivity of this exam for evaluation of solid visceral organs, vascular structures, and retroperitoneum. Chest: LOWER NECK/CHEST WALL: Visualized thyroid gland and soft tissues are normal. LUNGS AND AIRWAYS: Airways are clear. Subsolid 6 mm nodule in the peripheral left upper lobe on axial image 18 is stable. Improvement confluent subpleural left lower lobe opacity now with some streaky atelectasis or scarring in this region. New confluence of solid opacity in the right upper lobe measu ring 1.6 cm on axial image 20. Improving medial right upper lobe and stable subpleural dependent right lower lobe opacities, with filling of the small cavitary spaces within the latter opacity. No o ther nodules. PLEURA: No pleural effusion. No pneumothorax. Hemidiaphragms are normally positioned. MEDIASTINUM AND LYMPH NODES: Dense mitral valve calcifications. Heart is normal in size. No mediastin al mass or fluid collection. Normal size mediastinal, hilar, and axillary lymph nodes. THORACIC AORTA: Normal caliber and configuration. PULMONARY ARTERIES: Normal caliber. HEART: Unremarkable. Abdomen/Pelvis LIVER: Normal in size and contour. No focal lesion. GALLBLADDER/BILE DUCTS: Status post cholecystectomy. No biliary ductal dilatation. PANCREAS: No mass, ductal dilation, or eliana-pancreatic fluid. SPLEEN: Normal size. No focal lesion. ADRENALS: Normal; no mass. KIDNEYS AND URETERS: Normal size and contour. Nonobstructing bilateral renal calculi not exceeding 3 mm. Vascular calcifications. No hydronephrosis. GASTROINTESTINAL TRACT: Short segment air-fluid levels within nondilated distal small bowel loops, no nspecific, could relate to diarrheal state. Stomach is non-dilated. Small bowel has normal course and caliber. No colonic wall thickening or pericolonic inflammatory changes. PERITONEUM: No free fluid. LYMPH NODES: No lymphadenopathy. ABDOMINAL AORTA AND OTHER VESSELS: Normal caliber aorta and IVC. URINARY BLADDER: Normal contour. REPRODUCTIVE ORGANS: No pathologic process. MUSCULOSKELETAL: Superior endplate compression deformity at L2 and T10, stable. No acute or suspiciou s osseous abnormality. ADDITIONAL FINDINGS: Vaginal diaphragm place. IMPRESSION: Developing nodular right upper lobe 1.6 cm subsolid opacity, could reflect an infectious or inflammat ory process. Stable dependent right lower lobe subpleural consolidative opacity may also present persistent or rec urrent airspace disease, with some filling of the cavitary spaces seen previously. Other opacities in both lungs show interval improvement. Follow-up CT imaging of the chest is recommended for these f indings to ensure stability or resolution and 1-3 months. Nonobstructing bilateral renal calculi not exceeding 3 mm. Other findings as above.
--- NOTE | 2025-03-15 23:10 | ER ---
Nurse's Notes [facility] Name: Falguni Marcelino Age: 84 yrs Sex: Female : 1940 Arrival Date: 03/15/2025 Time: 20:06 Bed 4 Private MD: Diagnosis: Elevated white blood cell count;Dizziness and giddiness;Chronic kidney disease, unspecified;Pneumonia due to other specified bacteria-lung mass Presentation: 03/15 20:20 Chief complaint: Patient states: DIZZINESS THAT HAPPENS IN THE MORNINGS SINCE MONDAY, dd2 LOWER BACK PAIN AND DOTTY LOWER STOMACH PAIN THAT BEGAN EARLIER TODAY. PT DENIES N/V. Coronavirus screen: At this time, the client does not indicate any symptoms associated with coronavirus-19. Ebola Screen: No symptoms or risks identified at this time. Initial Sepsis Screen: Does the patient meet any 2 criteria? No. Patient's initial sepsis screen is negative. Does the patient have a suspected source of infection? No. Patient's initial sepsis screen is negative. Risk Assessment: Do you want to hurt yourself or someone else? Patient reports no desire to harm self or others. Onset of symptoms was March 13, 2025. 20:20 Method Of Arrival: Ambulatory dd2 20:20 Acuity: BRYANT 3 dd2 Triage Assessment: 20:21 General: Appears in no apparent distress. uncomfortable, Behavior is calm, cooperative, dd2 appropriate for age. Pain: Complains of pain in low back area, right lower quadrant and left lower quadrant. GI: Reports lower abdominal pain. : CVA tenderness noted on left Reports pain in bilateral lower quadrant(s) in lower back. Historical: - Allergies: 20:21 Morphine; dd2 20:21 STEROIDS; dd2 - PMHx: 20:21 Hypertension; Hypothyroidism; Lung Cancer; Kidney disease; dd2 - PSHx: 20:21 Appendectomy; Heart Stents; hysterectomy; Cholecystectomy; LT LOBECTOMY; dd2 - Immunization history:: Adult Immunizations unknown. - Infectious Disease History:: Denies. - Social history:: Smoking status: Patient denies any tobacco usage or history of. - Family history:: not pertinent. Screenin:38 [facility] ED Fall Risk Assessment (Adult) History of falling in the last 3 months, kj2 including since admission No falls in past 3 months (0 pts) Confusion or Disorientation No (0 pts) Intoxicated or Sedated No (0 pts) Impaired Gait Yes (1 pt) Mobility Assist Device Used Yes (1 pt) Altered Elimination No (0 pt) Score/Fall Risk Level 0 - 2 = Low Risk Maintained a safe environment, Hourly rounding (assess needs \T\ fall precautionary measures) done. Abuse screen: Denies threats or abuse. Denies injuries from another. Nutritional screening: No deficits noted. Tuberculosis screening: No symptoms or risk factors identified. Assessment: 20:37 General: Appears in no apparent distress. Behavior is cooperative. Pain: Complains of kj2 pain in abdomen and back Pain currently is 6 out of 10 on a pain scale. Neuro: Level of Consciousness is awake, alert, obeys commands, Oriented to person, place, time, situation. Cardiovascular: Patient's skin is warm and dry. Respiratory: Airway is patent Respiratory effort is even, unlabored. : No signs and/or symptoms were reported regarding the genitourinary system. 21:30 Reassessment: Patient appears in no apparent distress at this time. Patient and/or kj2 family updated on plan of care and expected duration. Pain level reassessed. Patient is alert, oriented x 3, equal unlabored respirations, skin warm/dry/pink. 22:30 Reassessment: Patient appears in no apparent distress at this time. Patient and/or cp4 family updated on plan of care and expected duration. Pain level reassessed. Patient is alert, oriented x 3, equal unlabored respirations, skin warm/dry/pink. 23:30 Reassessment: Patient appears in no apparent distress at this time. Patient and/or cp4 family updated on plan of care and expected duration. Pain level reassessed. Patient is alert, oriented x 3, equal unlabored respirations, skin warm/dry/pink. 03/16 00:30 Reassessment: Patient appears in no apparent distress at this time. Patient and/or cp4 family updated on plan of care and expected duration. Pain level reassessed. Patient is alert, oriented x 3, equal unlabored respirations, skin warm/dry/pink. Vital Signs: 03/15 20:20 BP 156 / 67; Pulse 73; Resp 16; Temp 98.2; Pulse Ox 99% on R/A; Weight 39.46 kg; Pain dd2 10/12; 21:26 BP 137 / 72; Pulse 74; Resp 16; Pulse Ox 99% ; cp4 21:30 BP 166 / 72; Pulse 69; Resp 18; Pulse Ox 98% on R/A; kj2 23:30 BP 165 / 72; Pulse 71; Resp 18; Pulse Ox 100% ; cp4 03/16 00:30 BP 175 / 89; Pulse 71; Resp 18; Pulse Ox 99% ; cp4 03/15 20:20 Pain Scale: Adult dd2 ED Course: 03/15 20:09 Patient arrived in ED. mr 20:12 Tonny Butler MD is Attending Physician. vasquez 20:18 Nazia Farmer, GERARD is Primary Nurse. kj2 20:21 Triage completed. dd2 20:21 Arm band placed on right wrist. dd2 20:38 Patient has correct armband on for positive identification. Bed in low position. Call kj2 light in reach. Adult w/ patient. Provided Education on: call light. 20:57 Basic Metabolic Panel Sent. oe 20:57 LFT's Sent. oe 20:57 Magnesium Sent. oe 20:57 NT PRO-BNP Sent. oe 20:57 PT-INR Sent. oe 20:57 Troponin HS Sent. oe 20:57 Inserted saline lock: 22 gauge in right forearm, using aseptic technique. Blood oe collected. Flushed with 10 mL NS. 21:05 No provider procedures requiring assistance completed. cp4 21:13 CT Chest Abdomen Pelvis W/O Contrast In Process Unspecified. EDMS 21:57 XRAY Chest (1 view) In Process Unspecified. EDMS 23:09 Jackson Pearce MD is Hospitalizing Provider. [facility] 03/16 01:21 Patient admitted, IV remains in place. cp4 Administered Medications: 03/15 21:04 Drug: NS 0.9% IV 500 ml IV at per protocol once; to be given as a bolus over 30 minutes cp4 Route: IV; Rate: per protocol; Site: right forearm; 23:34 Follow up: IV Status: Completed infusion cp4 21:04 Drug: Ondansetron IVP 4 mg IVP once; over 2 minutes Route: IVP; Site: right forearm; cp4 23:34 Follow up: Response: No adverse reaction cp4 21:04 Drug: fentaNYL (PF) IVP 25 mcg IVP once Route: IVP; Site: right forearm; cp4 23:34 Follow up: Response: No adverse reaction; Pain is decreased cp4 23:33 Drug: Piperacillin-Tazobactam IVPB 3.375 grams IVPB once over 60 mins; (mix in NS 100 cp4 mL) Route: IVPB; Infused Over: 60 mins; Site: right forearm; 03/16 01:03 Follow up: Response: No adverse reaction; IV Status: Completed infusion cp4 Medication: 03/15 20:39 VIS not applicable for this client. kj2 Outcome: 23:10 Decision to Hospitalize by Provider. vasquez 03/16 01:21 Admitted to Med/surg accompanied by tech, via wheelchair, room 219, with chart, cp4 Condition: stable Instructed on the need for admit, 01:22 Patient left the ED. cp4 Signatures: Dispatcher [employer] Tonny Marte MD MD cha Rivera, Mary, Marshall Olivares mr Bernstein, Shital Concepcion cp4 Nazia Farmer, RN RN kj2 DIMA SCHAFFER RN RN dd2
--- NOTE | 2025-03-15 23:10 | EDPHYS ---
Physician Documentation [facility] Name: Falguni Marcelino Age: 84 yrs Sex: Female : 1940 Arrival Date: 03/15/2025 Time: 20:06 Bed 4 Private MD: Tonny Young HPI: 03/15 20:49 This 84 yrs old Female presents to ER via Ambulatory with complaints of vasquez Dizziness, Abdominal Pain, Back Pain. 20:49 The patient presents with dizziness, generalized weakness. vasquez 20:49 The patient presents with abdominal pain. The patient presents with pain that is vasquez chronic, with no known mechanism of injury. The symptoms are located in the low back. The pain does not radiate. Associated signs and symptoms: The patient has no apparent associated signs or symptoms. Modifying factors: The patient symptoms are alleviated by nothing, the patient symptoms are aggravated by any movement. Historical: - Allergies: 20:21 Morphine; dd2 20:21 STEROIDS; dd2 - PMHx: 20:21 Hypertension; Hypothyroidism; Lung Cancer; Kidney disease; dd2 - PSHx: 20:21 Appendectomy; Heart Stents; hysterectomy; Cholecystectomy; LT LOBECTOMY; dd2 - Immunization history:: Adult Immunizations unknown. - Infectious Disease History:: Denies. - Social history:: Smoking status: Patient denies any tobacco usage or history of. - Family history:: not pertinent. ROS: 20:49 Constitutional: Negative for fever, chills, and weight loss, Eyes: Negative for injury, vasquez pain, redness, and discharge, ENT: Negative for injury, pain, and discharge, Neck: Negative for injury, pain, and swelling, Cardiovascular: Negative for chest pain, palpitations, and edema, Respiratory: Negative for shortness of breath, cough, wheezing, and pleuritic chest pain, : Negative for injury, bleeding, discharge, and swelling, MS/Extremity: Negative for injury and deformity, Skin: Negative for injury, rash, and discoloration, Neuro: Negative for headache, weakness, numbness, tingling, and seizure, Psych: Negative for depression, anxiety, suicide ideation, homicidal ideation, and hallucinations, Allergy/Immunology: Negative for hives, rash, and allergies, Endocrine: Negative for neck swelling, polydipsia, polyuria, polyphagia, and marked weight changes, Hematologic/Lymphatic: Negative for swollen nodes, abnormal bleeding, and unusual bruising, 20:49 Abdomen/GI: Positive for abdominal pain, abdominal cramps, 20:49 Back: Positive for decreased range of motion, pain at rest, Exam: 20:50 Constitutional: This is a well developed, well nourished patient who is awake, alert, vasquez and in no acute distress. Head/Face: Normocephalic, atraumatic. Eyes: Pupils equal round and reactive to light, extra-ocular motions intact. Lids and lashes normal. Conjunctiva and sclera are non-icteric and not injected. Cornea within normal limits. Periorbital areas with no swelling, redness, or edema. ENT: Nares patent. No nasal discharge, no septal abnormalities noted. Tympanic membranes are normal and external auditory canals are clear. Oropharynx with no redness, swelling, or masses, exudates, or evidence of obstruction, uvula midline. Mucous membranes moist. Neck: Trachea midline, no thyromegaly or masses palpated, and no cervical lymphadenopathy. Supple, full range of motion without nuchal rigidity, or vertebral point tenderness. No Meningismus. Chest/axilla: Normal chest wall appearance and motion. Nontender with no deformity. No lesions are appreciated. Cardiovascular: Regular rate and rhythm with a normal S1 and S2. No gallops, murmurs, or rubs. Normal PMI, no JVD. No pulse deficits. Respiratory: Lungs have equal breath sounds bilaterally, clear to auscultation and percussion. No rales, rhonchi or wheezes noted. No increased work of breathing, no retractions or nasal flaring. Abdomen/GI: Soft, non-tender, with normal bowel sounds. No distension or tympany. No guarding or rebound. No evidence of tenderness throughout. Female : Normal external genitalia. Skin: Warm, dry with normal turgor. Normal color with no rashes, no lesions, and no evidence of cellulitis. MS/ Extremity: Pulses equal, no cyanosis. Neurovascular intact. Full, normal range of motion., bilateral aka Neuro: Awake and alert, GCS 15, oriented to person, place, time, and situation. Cranial nerves II-XII grossly intact. Motor strength 5/5 in all extremities. Sensory grossly intact. Cerebellar exam normal. Normal gait. Psych: Awake, alert, with orientation to person, place and time. Behavior, mood, and affect are within normal limits. 20:50 Back: pain, that is mild, ROM is painful, with all movement, normal spinal alignment noted, CVA tenderness, is absent, vertebral tenderness, is not appreciated, muscle spasm, is not present, 23:11 ECG was reviewed by the Attending Physician. [facility] Vital Signs: 20:20 BP 156 / 67; Pulse 73; Resp 16; Temp 98.2; Pulse Ox 99% on R/A; Weight 39.46 kg; Pain dd2 10/12; 21:26 BP 137 / 72; Pulse 74; Resp 16; Pulse Ox 99% ; cp4 21:30 BP 166 / 72; Pulse 69; Resp 18; Pulse Ox 98% on R/A; kj2 23:30 BP 165 / 72; Pulse 71; Resp 18; Pulse Ox 100% ; cp4 03/16 00:30 BP 175 / 89; Pulse 71; Resp 18; Pulse Ox 99% ; cp4 03/15 20:20 Pain Scale: Adult dd2 MDM: 03/15 20:12 Medical Screening Exam initiated vasquez 20:51 Differential diagnosis: cardiac arrhythmia, idiopathic dizziness, vertigo. Differential vasquez diagnosis: Fracture Hydronephrosis Neoplasm Osteoporosis Peptic Ulcer Renal Infarction ruptured disc, Scoliosis sprain, Ureterolithiasis appendicitis, bowel obstruction, coronary artery disease, cholecystitis, Cholelithiasis, gastritis, non-specific abd pain, pancreatitis, Peptic Ulcer Disease. Data reviewed: vital signs, nurses notes, lab test result(s), EKG, radiologic studies, plain films. Consideration of Admission/Observation Escalation of care including admission/observation considered. I considered the following discharge prescriptions or medication management in the emergency department Medications were administered in the Emergency Department. See MAR. Independent interpretation of the following test(s) in the Emergency Department EKG: See my EKG interpretation above. Test considered but Not performed: MRI: no mri spine. Historians other than the Patient: Daughter/Son: daughter well informed. Care significantly affected by the following chronic conditions: Hypertension, Cancer, Chronic Kidney Disease, hypothyroid. 03/15 20:17 Order name: CBC with Diff; Complete Time: 22:54 [facility] 03/15 20:41 Order name: Basic Metabolic Panel; Complete Time: 22:54 [facility] 03/15 20:41 Order name: LFT's; Complete Time: 22:54 [facility] 03/15 20:41 Order name: Magnesium; Complete Time: 22:54 [facility] 03/15 20:41 Order name: NT PRO-BNP; Complete Time: 22:54 [facility] 03/15 20:41 Order name: PT-INR; Complete Time: 22:54 [facility] 03/15 20:41 Order name: Troponin HS; Complete Time: 22:54 [facility] 03/15 20:41 Order name: Lipase; Complete Time: 22:54 [facility] 03/15 20:41 Order name: UA Rfx Cipriano Cult if indicated [facility] 03/15 23:06 Order name: Blood Culture Adult (2) [facility] 03/15 23:06 Order name: Lactate w/ 2H reflex if indic. [facility] 03/16 00:16 Order name: CBC with Automated Diff EDMS 03/16 00:16 Order name: CBC with Automated Diff EDMS 03/16 00:16 Order name: CBC with Automated Diff EDMS 03/16 00:16 Order name: CBC with Automated Diff EDMS 03/16 00:16 Order name: Comprehensive Metabolic Panel EDMS 03/16 00:16 Order name: Comprehensive Metabolic Panel EDMS 03/16 00:17 Order name: Comprehensive Metabolic Panel EDMS 03/16 00:17 Order name: Comprehensive Metabolic Panel EDMS 03/16 00:17 Order name: Magnesium EDMS 03/16 00:17 Order name: Magnesium EDMS 03/16 00:17 Order name: Magnesium EDMS 03/16 00:17 Order name: Magnesium EDMS 03/15 20:41 Order name: XRAY Chest (1 view) [facility] 03/15 20:41 Order name: CT Chest Abdomen Pelvis W/O Contrast; Complete Time: 22:54 [facility] 03/15 20:41 Order name: EKG; Complete Time: 20:42 [facility] 03/15 20:41 Order name: Cardiac monitoring; Complete Time: 20:48 [facility] 03/15 20:41 Order name: EKG - Nurse/Tech; Complete Time: 21:04 [facility] 03/15 20:41 Order name: IV Saline Lock; Complete Time: 20:48 [facility] 03/15 20:41 Order name: Labs collected and sent; Complete Time: 20:48 [facility] 03/15 20:41 Order name: O2 Per Protocol; Complete Time: 20:48 [facility] 03/15 20:41 Order name: O2 Sat Monitoring; Complete Time: 20:48 [facility] 03/15 23:08 Order name: Robert. Order: get ua; Complete Time: 23:33 vasquez EC:11 Rate is 73 beats/min. Rhythm is regular. QRS [place] is Normal. CA interval is normal. QRS vasquez interval is normal. QT interval is normal. No Q waves. T waves are Normal. No ST changes noted. Clinical impression: NSR w/ Non-specific ST/T Changes and No evidence of ischemia. Interpreted by me. Reviewed by me. Administered Medications: 21:04 Drug: NS 0.9% IV 500 ml IV at per protocol once; to be given as a bolus over 30 minutes cp4 Route: IV; Rate: per protocol; Site: right forearm; 23:34 Follow up: IV Status: Completed infusion cp4 21:04 Drug: Ondansetron IVP 4 mg IVP once; over 2 minutes Route: IVP; Site: right forearm; cp4 23:34 Follow up: Response: No adverse reaction cp4 21:04 Drug: fentaNYL (PF) IVP 25 mcg IVP once Route: IVP; Site: right forearm; cp4 23:34 Follow up: Response: No adverse reaction; Pain is decreased cp4 23:33 Drug: Piperacillin-Tazobactam IVPB 3.375 grams IVPB once over 60 mins; (mix in NS 100 cp4 mL) Route: IVPB; Infused Over: 60 mins; Site: right forearm; 03/16 01:03 Follow up: Response: No adverse reaction; IV Status: Completed infusion cp4 Disposition Summary: 03/15/25 23:10 Hospitalization Ordered Notes: Hospitalization Status: Observation vasquez Provider: Jcakson Pearce cha Location: Telemetry/MedSurg (observation) vasquez Condition: Fair vasquez Problem: new vasquez Symptoms: have improved vasquez Bed/Room Type: Standard vasquez Room Assignment: 219(03/16/25 00:18) rv1 Diagnosis - Elevated white blood cell count vasquez - Dizziness and giddiness vasquez - Chronic kidney disease, unspecified vasquez - Pneumonia due to other specified bacteria - lung mass vasquez Forms: - Medication Reconciliation Form vasquez - SBAR form vasquez - Leadership Thank You Letter vasquez Signatures: Dispatcher [employer] Tonny Marte MD MD cha Villegas, Rebecca rv1 Shital Landeros cp4 Nazia Farmer RN RN kj2 DIAM SCHAFFER RN RN dd2 Corrections: (The following items were deleted from the chart) 03/15 23: 23:07 BLOOD CULTURE*+BA.LAB.BRZ ordered. EDMS EDMS 23:07 LACTATE+C.LAB.BRZ ordered. EDMS EDMS 03/16 00:18 03/15 23:10 vasquez rv1
[2025-03-15] MEDS ORDERED: NA CHLORIDE 0.9% 100 ML ONE (23:25)
[2025-03-15] MEDS ORDERED: PIPERACIL/TAZO 3.375 GM VIAL IV ONE (23:26)
[2025-03-15 23:42] LABS: Sqamous Epithelial <5 /HPF (None Seen); Urine Culture Reflex Order NOT NEEDED; Urine Microscopic Reflex YN ORDER UMIC
--- NOTE | 2025-03-15 23:58 | RAD REPORT ---
EXAMINATION: ONE VIEW CHEST XR CLINICAL INDICATION: Female, 84 years old.,COUGH TECHNIQUE: Frontal chest projection is submitted. Examination is limited by patient positioning and t echnique. COMPARISON: 01/16/2023 FINDINGS: The lungs are diffusely emphysematous but grossly clear apart from stable right perihilar patchy opac ification versus vascular prominence. No pneumothorax or sizable effusion. The heart is normal in size. Mediastinal contours are unchanged, with mitral valve calcifications. Left Port-A-Cath in place . IMPRESSION: No acute intrathoracic abnormalities. Stable findings as above.
[2025-03-16] MEDS ORDERED: ACETAMINOPHEN 325 MG TABLET PO PRN (00:12)
--- NOTE | 2025-03-16 00:21 | P.HP ---
Certification for Inpatient Patient admitted to: Inpatient With expected LOS: >2 Midnights Patient will require the following post-hospital care: None Practitioner: I am a practitioner with admitting privileges, knowledge of patient current condition, hospital course, and medical plan of care. Services: Services provided to patient in accordance with Admission requirements found in Title 42 Section 412.3 of the Code of Federal Regulations Patient History Date of Service: 03/16/25 Reason for admission: Infection of unknown etiology, Lower abdomen pain, weakness, MERON History of Present Illness: Patient is a pleasant 84-year-old female with past medical history of GERD, essential hypertension, hypothyroidism, osteoporosis, CKD, lung cancer, current ly receiving infusion every 3 weeks chemo of Keytruda which started since from last year. Patient brought to the ER today by her daughter due to generalized body weakness, lower abdominal pain, and bilateral lower back pain, with associated chills but no reported fever. According to patient daughter, she states 2 days ago patient started complaining of dizziness, and today patient started complaining of bilateral flank pain, and lower abdominal pain. Patient also states that she had chills yesterday with no fever. Patient does not complain of urinary urgency or frequency at this time. Patient lungs clear bilaterally with no adventitious breath sounds, denies of chest pain or shortness of breath. Patient had CT chest, abdomen, and pelvis without contrast in ER, with impression: Developing nodular right upper lobe 1.6 cm subsolid opacity, could reflect an infectious or inflammatory process. Stable dependent right lower lobe subpleural consolidative opacity may also present persistent or recurrent airspace disease, with some filling of the cavitary spaces seen previously. Other opacities in both lungs show interval improvement. Nonobstructing bilateral renal calculi not exceeding 3 mm. Patient also had chest x-ray, with impression: No acute intrathoracic abnormalities. Stable findings. Patient urinalysis positive for leukocyte esterase. Patient WBC 13.30, with a left shift 77.3. BUN 36, creatinine 1.80, GFR 27, BNP 3766. Allergies codeine Allergy (Mild, Verified 08/06/13 16:03) hyperactivity morphine Allergy (Verified 08/06/13 16:03) swelling to extremities NSAIDS (Non-Steroidal Anti-Inflamma Allergy (Verified 03/16/25 01:47) Rash prednisone Allergy (Verified 03/16/25 02:17) Rash Home Medications: Tramadol HCl [Ultram] 2 tab PO ONCE PRN 11/08/18 Ascorbic Acid [Vitamin C] 1,000 mg PO DAILY 03/16/25 Atorvastatin Calcium 40 mg PO BREAKFAST 03/16/25 Clopidogrel Bisulfate [Plavix] 75 mg PO BREAKFAST 03/16/25 Ferrous Gluconate 324 mg PO BREAKFAST 03/16/25 Fiber [Fiber Diet] 2 cap PO DAILY 03/16/25 Levothyroxine Sodium 50 mcg PO BREAKFAST 03/16/25 Magnesium Oxide [Magnesium] 250 mg PO DAILY 03/16/25 Meclizine HCl 1 tab PO BEDTIME 03/16/25 Metoprolol Tartrate 1 tab PO BID 03/16/25 Multivitamin 1 each PO DAILY 03/16/25 Omeprazole Magnesium [Prilosec Otc] 20 mg PO DAILY 03/16/25 Topiramate 25 mg PO BID 03/16/25 - Past Medical/Surgical History Diabetic: No -: HTN -: Hypothyroidism -: Osteoporosis -: Lung Cancer -: Diverticulitis -: Appendectomy -: Left Lower Lobectomy -: Hysterectomy -: pessary insertion -: cholecystectomy -: perforated colon sx -: Left chest wall chemo Port - Family History Father -: Cancer Notes: lung cancer Mother -: Lung disease, Diabetes Notes: asthma Sister -: Cancer - Social History Smoking Status: Former smoker Alcohol use: No CD- Drugs: No Caffeine use: Yes Place of Residence: Home Review of Systems 10-point ROS is otherwise unremarkable General: Chills (chilss started yesterday.) Gastrointestinal: Other (lower abdominal pain) Musculoskeletal: Back Pain (lower back pain) Neurological: Weakness Physical Examination - Physical Exam General: Alert, In no apparent distress, Oriented x3 HEENT: Atraumatic, Normocephalic, PERRLA Neck: Supple, 2+ carotid pulse no bruit, JVD not distended, No Thyromegaly, No LAD, Without JVD or thyroid abnormality Respiratory: Clear to auscultation bilaterally, Normal air movement Cardiovascular: No edema, Normal pulses, Regular rate/rhythm, Normal S1 S2, No gallops, Systolic murmur Capillary refill: <2 Seconds Gastrointestinal: Normal bowel sounds, Soft and benign, Non-distended, W/out hepatomegaly, No ascites, Tenderness (lower abdomen) Musculoskeletal: Tenderness (lower back pain) Integumentary: No rashes, No breakdown, No significant lesion, No tenderness/swelling, No erythema, No warmth, No cyanosis Neurological: Normal speech, Normal strength at 5/5 x4 extr, Normal tone, Sensation intact, Cranial nerves 3-12 intact, Normal reflexes 2+, Normal affect Lymphatics: No axilla or inguinal lymphadenopathy - Studies Laboratory Data (last 24 hrs) 03/15/25 03/15/25 03/15/25 20:53 20:53 20:53 WBC 13.30 H Hgb 11.2 L Hct 34.1 L Plt Count 311 PT 12.8 INR 1.14 Sodium 140 Potassium 4.2 BUN 36 H Creatinine 1.80 H Glucose 103 Magnesium 2.3 Total Bilirubin 0.3 AST 27 ALT 26 Alkaline Phosphatase 88 Lipase 25 Female Exam - Breasts Breasts: Normal configuration, Normal contours, Symmetrical Assessment and Plan - Plan Patient is a 84-year-old female currently undergoing chemo infusion every 3 weeks Keytruda for lung cancer. Patient admitted for diagnosis of possible UTI with positive urine leukocyte esterase. No other source of patient infection identified at this time. Patient WBC 13.30 with a left shift, also had chills yesterday. (1)Possible UTI/acute on chronic kidney disease/dizziness. Patient complained of chills with no associated chest pain, shortness of breath, cough, lungs clear bilateral. -Rocephin 1 g IV daily. -IV LR at 50 mL/ hr x 1 L. Slow infusion patient BNP is 3766. -Order an echocardiogram to evaluate patient cardiac status. (2) DVT prophylaxis. -Heparin 5K units SQ every 8 hours. (3) Patient home medications to be restarted after reconcil. Explained entire treatment plan to the patient, and daughter present at the bedside, solicited questions answered and voiced understanding. Discharge Plan: Home Plan to discharge in: 72 Hours - Advance Directives Does patient have a Living Will: Yes Does patient have a Durable POA for Healthcare: Yes - Code Status/Comfort Care Code Status Assessed: Yes Code Status: Full Code Critical Care: No Time Spent Managing Pts Care (In Minutes): 55
[2025-03-16] MEDS: HEPARIN 5000 UNIT/ML 1 ML VIAL SQ SCH (01:47)
[2025-03-16] MEDS: Ringers Lactate 1,000 ML IV SCH (01:48)
[2025-03-16 02:23] VITALS: O2SAT 99
[2025-03-16] MEDS: CEFTRIAXONE 1,000 MG in NA CHLORIDE 0.9% 50 ML IVPB SCH (08:01)
[2025-03-16] MEDS ORDERED: PIPER TAZO 3.375 GM in NA CHLORIDE 0.9% 100 ML IV SCH (09:00)
[2025-03-16] MEDS: LEVOTHYROXINE SOD 0.05 MG TABLET PO ONE (10:30)
[2025-03-16 12:27] LABS: Absolute Lymphocytes (CBC) 1.4 K/uL (0.7-4.9); Hematocrit 30.6 % (36.0-45.0); Hemoglobin 10.0 g/dL (12.0-15.0); MCH 30.5 pg (27.0-35.0); MCHC 32.7 g/dL (32.0-36.0); MCV 93.2 fL (80-100); MPV 9.6 fL (7.6-11.3); Nucleated RBC Absolute Count 0.0 (0-0); Nucleated Red Blood Cells % 0.0 % (0-0); RBC Red Blood Cell Count 3.28 M/uL (3.86-4.86); White Blood Count 9.90 thou/uL (4.3-10.9)
[2025-03-16 12:54] LABS: ALT/SGPT 17.0 U/L (13-56); AST/SGOT 20.0 U/L (15-37); Albumin 2.6 g/dL (3.4-5.0); Albumin/Globulin Ratio 0.7 (1.1-1.8); Alkaline Phosphatase 72.0 U/L (45-117); Anion Gap 9.3 mEq/L (5.0-15.0); BUN Blood Urea Nitrogen 29.0 mg/dL (7-18); Globulin 3.6 g/dL (2.3-3.5); Glucose Level 91.0 mg/dL (74-106); Potassium 4.3 mEq/L (3.5-5.1)
[2025-03-16] MEDS: TRAMADOL HCL 50 MG TAB PO PRN (13:38)
[2025-03-16] MEDS: TOPIRAMATE 25 MG TAB PO SCH (21:29)
[2025-03-16] MEDS: METOPROLOL TAR 50 MG TAB PO SCH (21:29)
[2025-03-17] MEDS: LEVOTHYROXINE SOD 0.05 MG TABLET PO SCH (06:29)
[2025-03-17] MEDS: ASCORBIC ACID 500 MG TABLET PO SCH (07:38)
[2025-03-17] MEDS: FERROUS GLUCONATE 324 MG TAB PO SCH (07:39)
[2025-03-17] MEDS: CLOPIDOGREL 75 MG TABLET PO SCH (07:39)
[2025-03-17] MEDS: ATORVASTATIN 40 MG TAB PO SCH (07:39)
[2025-03-17 07:57] LABS: Absolute Lymphocytes (CBC) 1.1 K/uL (0.7-4.9); Hematocrit 30.7 % (36.0-45.0); Hemoglobin 10.2 g/dL (12.0-15.0); MCH 30.9 pg (27.0-35.0); MCHC 33.3 g/dL (32.0-36.0); MCV 92.8 fL (80-100); MPV 9.9 fL (7.6-11.3); Nucleated RBC Absolute Count 0.0 (0-0); Nucleated Red Blood Cells % 0.0 % (0-0); RBC Red Blood Cell Count 3.31 M/uL (3.86-4.86); White Blood Count 11.70 thou/uL (4.3-10.9)
[2025-03-17] MEDS ORDERED: HOME MED 1 EA UNK (Ferrous Gluconate [Ferrous Gluconate] 324 MG Tablet) PO SCH (08:00)
[2025-03-17 08:19] LABS: ALT/SGPT 23.0 U/L (13-56); AST/SGOT 19.0 U/L (15-37); Albumin 2.5 g/dL (3.4-5.0); Albumin/Globulin Ratio 0.7 (1.1-1.8); Alkaline Phosphatase 70.0 U/L (45-117); Anion Gap 8.2 mEq/L (5.0-15.0); BUN Blood Urea Nitrogen 25.0 mg/dL (7-18); Globulin 3.7 g/dL (2.3-3.5); Glucose Level 123.0 mg/dL (74-106); Magnesium 1.7 mg/dL (1.6-2.4); Potassium 4.2 mEq/L (3.5-5.1)
[2025-03-17] MEDS ORDERED: HOME MED 1 EA UNK (Ascorbic Acid [Vitamin C] 1,000 MG Tablet) PO SCH (09:00)
--- NOTE | 2025-03-17 11:58 | P.PN ---
Subjective Date of Service: 03/17/25 Chief Complaint: Infection of unknown etiology, Lower abdomen pain, weakness, MERON Subjective: Ambulating, New changes, C/O voiced Patient was examined while resting in bed with family at bedside. Patient states that she has hide generalized weakness with sore throat that developed overnight. Discussed that WBC went back up from 9 to 11 today and that she will not be discharged home today as further workup is needed. Bedside RN updated on plan of care. Also discussed with nursing staff the need for echocardiogram report. Review of Systems 10-point ROS is otherwise unremarkable General: Weakness ENT: Nose Congestion, Throat Pain Respiratory: Cough, Dry Musculoskeletal: Leg Pain Physical Examination - Vital Signs Temperature: 98.0 F Blood Pressure: 150/68 Pulse: 78 Respirations: 17 Pulse Ox (%): 98 - Physical Exam General: Alert, In no apparent distress HEENT: Atraumatic, PERRLA, EOMI Neck: Supple Respiratory: Diminished Cardiovascular: Regular rate/rhythm, Normal S1 S2 Capillary refill: <2 Seconds Gastrointestinal: Normal bowel sounds Neurological: Normal speech, Normal tone, Normal affect Lymphatics: No axilla or inguinal lymphadenopathy External genitalia: Deferred Rectal: Deferred Assessment And Plan - Plan Patient is a pleasant 84-year-old female with past medical history of GERD, essential hypertension, hypothyroidism, osteoporosis, CKD, lung cancer, currently receiving infusion every 3 weeks chemo of Keytruda which started since from last year. Patient brought to the ER today by her daughter due to generalized body weakness, lower abdominal pain, and bilateral lower back pain, with associated chills but no reported fever. Possible UTI Acute on chronic kidney disease - Started on Rocephin 1 g IV daily - IV LR at 50 mL/ hr x 1 L. Slow infusion as patient BNP was 3766 - Per patient and family baseline creatinine around 1.5 - Current creatinine 1.54, continue to monitor - WBC trending back up, pending CXR and covid flu testing before broadening antibiotic - Repeat urinalysis ordered as previous did not reflex to culture Leukocytosis - Possibly due to UTI - Chest x-ray ordered, needs follow up - Blood cultures negative x 24, continue to monitor - WBC trend; 13.3, 9.9, 11.7, continue to monitor - A-febrile - Covid/Flu testing ordered, needs follow up Dizziness, resolved - Received 1L IV fluids with improved symptoms - Echo completed and pending report Hx of GERD - Takes omeprazole outpatient - Protonix PO while inpatient Hx of hypothyroidism -Not an active issue at this time. -Continue home levothyroxine daily History of hypertension History of hyperlipidemia History of TIA - Continue home medications metoprolol tartrate 50 mg twice daily, atorvastatin and Plavix - Monitor blood pressure per unit protocol History of lung cancer - Currently receiving infusions every 3 weeks chemo Keytruda - Continue to follow with oncology outpatient DVT Ppx: SCD's and ambulation for now GI Ppx: Protonix Code Status: Full Code Discharge Plan: Home Plan to discharge in: 48 Hours - Code Status/Comfort Care Code Status Assessed: Yes (Full Code) Critical Care: No Time Spent Managing PTS Care (In Minutes): 32
[2025-03-17 12:59] LABS: Influenza A Ag Negative; Influenza B Ag Negative; SARS-CoV-2 Antigen Rapid Res Negative (Negative)
--- NOTE | 2025-03-17 15:17 | RAD REPORT ---
EXAMINATION: ONE VIEW CHEST XR CLINICAL INDICATION: r/o PNA TECHNIQUE: Frontal chest projection is submitted. Examination is limited by patient positioning and t echnique. COMPARISON: 03/15/2025, 01/16/2023 FINDINGS: Emphysematous changes are present throughout the lungs. Chronic blunting of the left costophrenic ang le suspected. Mild thickening of the pleura is also chronic along the left mid thoracic cage. No focal consolidation typical of pneumonia seen. The heart is moderately enlarged in size. Left-sided p ort catheter is tip in SVC. Aortic atherosclerosis.
[2025-03-17 15:59] LABS: Sqamous Epithelial <5 /HPF (None Seen); Urine Crystals Unidentified Few /HPF (None Seen); Urine Culture Reflex Order REFLEXED; Urine Microscopic Reflex YN ORDER UMIC; Urine WBC Clump Rare /HPF (None Seen); Urine Yeast (Budding) Few /HPF (None Seen)
[2025-03-18 00:27] VITALS: BMI 20.1
[2025-03-18] MEDS: PIPER TAZO 3.375 GM in NA CHLORIDE 0.9% 100 ML IV SCH (00:58)
[2025-03-18 05:14] LABS: Absolute Lymphocytes (CBC) 1.5 K/uL (0.7-4.9); Hematocrit 30.6 % (36.0-45.0); Hemoglobin 10.5 g/dL (12.0-15.0); MCH 31.5 pg (27.0-35.0); MCHC 34.4 g/dL (32.0-36.0); MCV 91.5 fL (80-100); MPV 9.6 fL (7.6-11.3); Nucleated RBC Absolute Count 0.0 (0-0); Nucleated Red Blood Cells % 0.0 % (0-0); RBC Red Blood Cell Count 3.35 M/uL (3.86-4.86); White Blood Count 10.70 thou/uL (4.3-10.9)
[2025-03-18 05:30] LABS: ALT/SGPT 17.0 U/L (13-56); AST/SGOT 19.0 U/L (15-37); Albumin 2.5 g/dL (3.4-5.0); Albumin/Globulin Ratio 0.7 (1.1-1.8); Alkaline Phosphatase 69.0 U/L (45-117); Anion Gap 7.8 mEq/L (5.0-15.0); BUN Blood Urea Nitrogen 18.0 mg/dL (7-18); Globulin 3.6 g/dL (2.3-3.5); Glucose Level 110.0 mg/dL (74-106); Magnesium 1.8 mg/dL (1.6-2.4); Potassium 3.8 mEq/L (3.5-5.1)
[2025-03-18] MEDS: MAGNESIUM SULFATE 1 gm IVPB 1 GM/100 ML BAG IV ONE (07:47)
[2025-03-18] MEDS: PSYLLIUM 1 PKT PO SCH (07:48)
[2025-03-18] MEDS: PANTOPRAZOLE 40MG TABLET PO SCH (07:48)
[2025-03-18] MEDS: POTASSIUM CL SA 10 MEQ TAB PO ONE (07:49)
[2025-03-18] MEDS ORDERED: METOPROLOL TARTRATE 5 MG/5 ML INJ IV PRN (10:08)
--- NOTE | 2025-03-18 10:35 | P.PN ---
Date of Service: 03/18/25 [facility] Live Progress Note Patient Name: ELHAM AGARWAL Date of : 1940 Patient Status: Inpatient Attending Provider: kate woods Date: 03/18/25 10:11 Initialization Date: 03/18/2025 10:11 Subjective Date of Service: 03/17/25 Chief Complaint: Infection of unknown etiology, Lower abdomen pain, weakness, MERON Subjective: Ambulating, New changes, C/O voiced Patient was examined while resting in bed with family at bedside. Patient reports that her blood pressure went up overnight and denies any new pain or symptoms at this time. Patient states that ultimately she feels better than previous day. Does report urinary frequency. Discussed getting a bladder scan to rule out urinary retention at this time. Also discussed adding metoprolol IV 5 mg every 6 hours as needed for acute hypertension. Patient in agreement with this plan Review of Systems 10-point ROS is otherwise unremarkable General: Weakness ENT: Nose Congestion, Throat Pain Respiratory: Cough, Dry Musculoskeletal: Leg Pain Physical Examination - Vital Signs Temperature: 98.0 F Blood Pressure: 150/68 Pulse: 78 Respirations: 17 Pulse Ox (%): 98 - Physical Exam General: Alert, In no apparent distress HEENT: Atraumatic, PERRLA, EOMI Neck: Supple Respiratory: Diminished Cardiovascular: Regular rate/rhythm, Normal S1 S2 Capillary refill: <2 Seconds Gastrointestinal: Normal bowel sounds : Mild bladder scan Neurological: Normal speech, Normal tone, Normal affect Lymphatics: No axilla or inguinal lymphadenopathy External genitalia: Deferred Rectal: Deferred Assessment And Plan - Plan Patient is a pleasant 84-year-old female with past medical history of GERD, essential hypertension, hypothyroidism, osteoporosis, CKD, lung cancer, currently receiving infusion every 3 weeks chemo of Keytruda which started since from last year. Patient brought to the ER today by her daughter due to generalized body weakness, lower abdominal pain, and bilateral lower back pain, with associated chills but no reported fever. Cystitis/UTI Acute on chronic kidney disease c/f Urinary Retention - CT abd/pelvis with: Non-obstructing bilateral renal calculi not exceeding 3 mm. Vascular calcifications. No hydronephrosis. - Started on Rocephin 1 g IV daily - IV LR at 50 mL/ hr x 1 L completed - Per patient and family baseline creatinine around 1.5, currently 1.3 - Current creatinine 1.54, continue to monitor - WBC trended back up, Abx changed from Rocephin to Zosyn q8h (first dose 0100 on 03/18/25) - Repeat urinalysis ordered as previous did not reflex to culture. Continue to follow results - Bladder scan ordered, and PVR over 300mL, one time straight cath ordered and q6h follow up bladder scan. If continuing to retain, consider Holm placement - If worsening; consider Nephro/Urology consults for stones and retention Leukocytosis, improving - Possibly due to UTI - Chest x-ray ordered and reviewed; no acute findings or typical pneumonia present - Blood cultures negative x 24, continue to monitor - WBC trend; 13.3, 9.9, 11.7,10.7 continue to monitor - A-febrile - Covid/Flu testing ordered; negative Dizziness, resolved - Received 1L IV fluids with improved symptoms - Echo ordered and pending report Hx of GERD - Takes omeprazole outpatient - Protonix PO while inpatient Hx of hypothyroidism - Not an active issue at this time. - Continue home levothyroxine daily History of hypertension History of hyperlipidemia History of TIA - Continue home medications metoprolol tartrate 50 mg twice daily, atorvastatin and Plavix - Monitor blood pressure per unit protocol - IV metoprolol 5 mg every 6 hours as needed added for SBP greater than 60 History of lung cancer - CT chest; Subsolid 6 mm nodule in the peripheral left upper lobe on axial image 18 is stable. Improvement confluent subpleural left lower lobe opacity now with some streaky atelectasis or scarring in this region. New confluence of solid opacity in the right upper lobe measuring 1.6 cm on axial image 20. Improving medial right upper lobe and stable sub-pleural dependent right lower lobe opacities, with filling of the small cavity spaces within the latter opacity. No other nodules. - Currently receiving infusions every 3 weeks chemo Keytruda - Satting well on room air - Continue to follow with oncology outpatient DVT Ppx: SCD's and ambulation for now GI Ppx: Protonix Code Status: Full Code Discharge Plan: Home Plan to discharge in: 48 Hours - Code Status/Comfort Care Code Status Assessed: Yes (Full Code) Critical Care: No Time Spent Managing PTS Care (In Minutes): 22
[2025-03-18] MEDS: HYDRALAZINE HCL 20 MG/ML VIAL IV PRN (15:22)
[2025-03-18] MEDS: ALBUTEROL 2.5 MG/3 ML NEB SOL NEB PRN (15:30)
[2025-03-18] MEDS: ONDANSETRON 4 MG/2 ML VIAL IV PRN (15:43)
[2025-03-18 16:40] LABS: Absolute Lymphocytes (CBC) 1.7 K/uL (0.7-4.9); Hematocrit 34.7 % (36.0-45.0); Hemoglobin 11.6 g/dL (12.0-15.0); MCH 30.8 pg (27.0-35.0); MCHC 33.4 g/dL (32.0-36.0); MCV 92.3 fL (80-100); MPV 9.1 fL (7.6-11.3); Nucleated RBC Absolute Count 0.0 (0-0); Nucleated Red Blood Cells % 0.0 % (0-0); RBC Red Blood Cell Count 3.76 M/uL (3.86-4.86); White Blood Count 13.80 thou/uL (4.3-10.9)
[2025-03-18 16:42] LABS: Base Excess, VBG 2.0 mmol/L (-2.0-3.0); HCO3, Venous Blood Gas 27.9 mmol/L (21.0-29.0); O2 Saturation, VBG 69.1 % (40.0-70.0); PCO2, Venous Blood Gas 53 mmHg (41-51); PH, Venous Blood Gas 7.33 (7.32-7.42); PO2, Venous Blood Gas 39 mmHg (25-40)
[2025-03-18 16:56] LABS: ALT/SGPT 22.0 U/L (13-56); AST/SGOT 28.0 U/L (15-37); Albumin 2.8 g/dL (3.4-5.0); Albumin/Globulin Ratio 0.7 (1.1-1.8); Alkaline Phosphatase 85.0 U/L (45-117); Anion Gap 9.0 mEq/L (5.0-15.0); BUN Blood Urea Nitrogen 17.0 mg/dL (7-18); Globulin 4.2 g/dL (2.3-3.5); Glucose Level 134.0 mg/dL (74-106); Potassium 4.0 mEq/L (3.5-5.1)
[2025-03-18] MEDS ORDERED: ALBUTEROL 2.5 MG/3 ML NEB SOL NEB SCH (19:00)
--- NOTE | 2025-03-18 19:04 | P.CNS ---
Date of Consult: 03/18/25 Reason for Consult: Incomplete bladder emptying Chief Complaint: Infection of unknown etiology, Lower abdomen pain, weakness, MERON History of Present Illness: 84-year-old woman with GERD, hypertension, hypothyroidism, osteoporosis, CKD, lung cancer receiving Keytruda every 3 weeks for the last year, was admitted via the emergency department because of generalized weakness and lower abdominal as well as bilateral lower back pain. She apparently reported chills but no fever. She also apparently complained of some dizziness on admission. He did not complain of any issues with urinary urgency or frequency, but she reportedly has a pessary in place, placed by some load out supervisor likely over 10 years ago. She has been managing that pessary, removing it and washing it as instructed. She may not do it on a regular basis, and there may be weeks between when she removes it. Since the admitting nurse and nurse practitioner about the patient who explained they had no concept of what to do with the pessary relative to the fact that postvoid, they performed a straight cath on the patient and found that she had approximately 338 cc retained. After her admission, she indicated she had started to feel better as of yesterday, but today, she began feeling worse. She got up to go to the bathroom, and became significantly weak and dizzy. This was associated with a rise again in her WBC. Past medical history: As above Past surgical history: Hemicolectomy for diverticular abscess, cholecystectomy, hysterectomy and bilateral salpingo-oophorectomy in the 1970s Allergies: Codeine and morphine, NSAIDs, prednisone Examination: Patient reasonably well-appearing and in no acute distress Alert, awake, oriented x 3 No dyspnea or sign of respiratory distress Abdomen soft, nontender, nondistended, no masses appreciable Urethral Holm catheter in place draining clear yellow urine Vaginal exam: Pessary in place, horizontally placed within the vaginal vault. Pessary was removed and was clean without purulence. No retained foreign body digitally palpable within the vaginal vault, and no purulent drainage identified. 03/15/2025 UA micro 1+ leukocyte esterase, <5 WBCs per hpf, <5 RBCs per hpf, no squamous epithelial cells 03/17/2025 WBC 13.8, similar to admission, hemoglobin 11.6, platelets 293, creatinine 1.51 with eGFR 34, INR 1.14 03/15/2025 CT chest abdomen and pelvis without contrast impression: Developing nodular right upper lobe 1.6 cm subsolid opacity. Stable dependent right lower lobe subpleural consolidative opacity may also present persistent or recurrent airspace disease with some filling of the cavitary spaces seen previously. Other opacities in both lungs show interval improvement. Nonobstructing bilateral renal calculi not exceeding 3 mm. Findings: Kidneys and ureters normal in size and contour. Vascular calcifications. No hydronephrosis. Assessment and recommendation: 4-year-old woman with GERD, hypertension, hypothyroidism, osteoporosis, CKD, CAD p PCI with 3 stents lung cancer receiving Keytruda every 3 weeks for the last year s/p DIA+BSO and partial colectomy for diverticular abscess, with pessary placed because of bladder prolapse over 10 years ago, now with moderate volume incomplete emptying admitted because of generalized weakness and some left lower abdominal discomfort in the absence of CT finding of note. - After communication with the primary team, urethral Holm catheter was placed to decompress her bladder and eliminate it as a source of ongoing chronic infection. -Further, I removed the pessary during the vaginal exam above, and it will be set aside and cleaned using soap and water followed by hydrogen peroxide. It may be replaced once she is clinically improved at the time of planned urethral Holm catheter removal to aid in her ability to void and more completely empty. -Await the results of urine culture, but anticipate removal of the urethral Holm catheter within the next 2 to 3 days. - Consider the role for alfuzosin 10 mg or silodosin 4 mg nightly to improve bladder emptying and decrease the risk of future bladder infection, but recognize the potential for first dose orthostasis, which may complicate her pre-existing dizziness issues. As such, this should only be considered once she is clinically improved prior to discharge. - She is scheduled to follow-up with Dr. Interiano on 04/02/2025 Allergies codeine Allergy (Mild, Verified 08/06/13 16:03) hyperactivity morphine Allergy (Verified 08/06/13 16:03) swelling to extremities NSAIDS (Non-Steroidal Anti-Inflamma Allergy (Verified 03/16/25 01:47) Rash prednisone Allergy (Verified 03/16/25 02:17) Rash Home medications list reviewed: Yes Home Medications: Tramadol HCl [Ultram] 1 tab PO BID PRN 06/06/19 Ascorbic Acid [Vitamin C] 1,000 mg PO DAILY 03/16/25 Atorvastatin Calcium 40 mg PO BREAKFAST 03/16/25 Clopidogrel Bisulfate [Plavix] 75 mg PO BREAKFAST 03/16/25 Ferrous Gluconate 324 mg PO BREAKFAST 03/16/25 Fiber [Fiber Diet] 2 cap PO DAILY 03/16/25 Levothyroxine Sodium 50 mcg PO BREAKFAST 03/16/25 Magnesium Oxide [Magnesium] 250 mg PO DAILY 03/16/25 Meclizine HCl 1 tab PO BEDTIME 03/16/25 Metoprolol Tartrate 1 tab PO BID 03/16/25 Multivitamin 1 each PO DAILY 03/16/25 Omeprazole Magnesium [Prilosec Otc] 20 mg PO DAILY 03/16/25 Topiramate 25 mg PO BID 03/16/25 - Past Medical/Surgical History Diabetic: No -: HTN -: Hypothyroidism -: Osteoporosis -: Lung Cancer -: Diverticulitis -: Appendectomy -: Left Lower Lobectomy -: Hysterectomy -: pessary insertion -: cholecystectomy -: perforated colon sx -: Left chest wall chemo Port - Family History Father Medical History: Cancer Notes: lung cancer Mother Medical History: Lung disease, Diabetes Notes: asthma Sister Medical History: Cancer - Social History Smoking Status: Former smoker Alcohol use: No CD- Drugs: No Caffeine use: Yes Place of Residence: Home Physical Examination Temp Pulse Resp BP Pulse Ox 97.8 F 70 20 191/90 H 97 03/18/25 16:00 03/18/25 16:00 03/18/25 16:00 03/18/25 16:00 03/18/25 16:00 - Problems (1) 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
[2025-03-19 05:39] LABS: Absolute Lymphocytes (CBC) 1.5 K/uL (0.7-4.9); Hematocrit 29.7 % (36.0-45.0); Hemoglobin 9.9 g/dL (12.0-15.0); MCH 30.8 pg (27.0-35.0); MCHC 33.5 g/dL (32.0-36.0); MCV 92.0 fL (80-100); MPV 9.5 fL (7.6-11.3); Nucleated RBC Absolute Count 0.0 (0-0); Nucleated Red Blood Cells % 0.1 % (0-0); RBC Red Blood Cell Count 3.23 M/uL (3.86-4.86); White Blood Count 13.90 thou/uL (4.3-10.9)
[2025-03-19 05:59] LABS: ALT/SGPT 20.0 U/L (13-56); AST/SGOT 44.0 U/L (15-37); Albumin 2.3 g/dL (3.4-5.0); Albumin/Globulin Ratio 0.7 (1.1-1.8); Alkaline Phosphatase 70.0 U/L (45-117); Anion Gap 8.9 mEq/L (5.0-15.0); BUN Blood Urea Nitrogen 19.0 mg/dL (7-18); Globulin 3.5 g/dL (2.3-3.5); Glucose Level 108.0 mg/dL (74-106); Magnesium 2.1 mg/dL (1.6-2.4); Potassium 3.9 mEq/L (3.5-5.1)
--- NOTE | 2025-03-19 10:55 | P.PN ---
Subjective Date of Service: 03/19/25 Chief Complaint: Infection of unknown etiology, Lower abdomen pain, weakness, MERON Subjective: No new changes Patient was examined while resting in bed with family at bedside. Patient reports feeling better overnight and that her blood pressure had come down. Discussed the need for continued Holm at this time. Also discussed new consult with pulmonology. Echocardiogram results still pending. Patient also reported improved shortness of breath/wheezing after starting breathing treatment yesterday. Review of Systems 10-point ROS is otherwise unremarkable General: Weakness Physical Examination - Vital Signs Temperature: 98.2 F Blood Pressure: 155/70 Pulse: 78 Respirations: 18 Pulse Ox (%): 95 - Physical Exam General: Alert, In no apparent distress HEENT: Atraumatic, PERRLA Neck: Supple Respiratory: Normal air movement, Diminished (in bilat bases), Expiratory wheezes Cardiovascular: Regular rate/rhythm, Normal S1 S2 Gastrointestinal: Normal bowel sounds, No tenderness Musculoskeletal: No tenderness Integumentary: No rashes Neurological: Normal speech, Normal tone, Normal affect Lymphatics: No axilla or inguinal lymphadenopathy Urinary: Holm catheter (clear yellow urine ) External genitalia: No edema Assessment And Plan - Plan Patient is a pleasant 84-year-old female with past medical history of GERD, essential hypertension, hypothyroidism, osteoporosis, CKD, lung cancer, currently receiving infusion every 3 weeks chemo of Keytruda which started since from last year. Patient brought to the ER today by her daughter due to generalized body weakness, lower abdominal pain, and bilateral lower back pain, with associated chills but no reported fever. Cystitis/UTI Acute on chronic kidney disease c/f Urinary Retention - CT abd/pelvis with: Non-obstructing bilateral renal calculi not exceeding 3 mm. Vascular calcifications. No hydronephrosis. - Started on Rocephin 1 g IV daily - IV LR at 50 mL/ hr x 1 L completed - Per patient and family baseline creatinine around 1.5, currently 1.3 - Current creatinine 1.54, continue to monitor - WBC trended back up, Abx changed from Rocephin to Zosyn q8h (first dose 0100 on 03/18/25) - Repeat urinalysis ordered as previous did not reflex to culture. Continue to follow results - Bladder scan ordered, and PVR over 300mL, one time straight cath ordered and q6h follow up bladder scan. If continuing to retain, consider Holm placement - 03/18: Urology consulted, recommendations for Holm placement and pessary device was removed. This may be replaced after urinary retention has improved and Holm cath has been removed. Recommendations to start alfuzosin or silodosin however we do not have this medication per pharmacy. - Started on tamsulosin Leukocytosis, improving - Possibly due to UTI - Chest x-ray ordered and reviewed; no acute findings or typical pneumonia present - Blood cultures negative x 24, continue to monitor - WBC trended up and maintaining at 13 - A-febrile - Covid/Flu testing ordered; negative Dizziness, resolved - Received 1L IV fluids with improved symptoms - Echo ordered and pending report Hx of GERD - Takes omeprazole outpatient - Protonix PO while inpatient Hx of hypothyroidism - Not an active issue at this time. - Continue home levothyroxine daily History of hypertension History of hyperlipidemia History of TIA - Continue home medications metoprolol tartrate 50 mg twice daily, atorvastatin and Plavix - Monitor blood pressure per unit protocol - IV metoprolol 5 mg every 6 hours as needed added for SBP greater than 60 History of lung cancer - CT chest; Subsolid 6 mm nodule in the peripheral left upper lobe on axial image 18 is stable. Improvement confluent subpleural left lower lobe opacity now with some streaky atelectasis or scarring in this region. New confluence of solid opacity in the right upper lobe measuring 1.6 cm on axial image 20. Improving medial right upper lobe and stable sub-pleural dependent right lower lobe opacities, with filling of the small cavity spaces within the latter opacity. No other nodules. - Currently receiving infusions every 3 weeks chemo Keytruda - Satting well on room air - Continue to follow with oncology outpatient - Pulmonology consulted, appreciate recommendations DVT Ppx: Heparin GI Ppx: Protonix Code Status: Full Code Discharge Plan: Home Plan to discharge in: 48 Hours - Code Status/Comfort Care Code Status Assessed: Yes (Full Code) Critical Care: No Time Spent Managing PTS Care (In Minutes): 25
[2025-03-19] MEDS: HEPARIN 5000 UNIT/ML 1 ML VIAL SQ SCH (16:25)
[2025-03-19] MEDS: Ringers Lactate 1,000 ML IV SCH (16:25)
[2025-03-19] MEDS: HEPARIN/D5W 25,000 UNIT/500 ML BAG IV SCH (17:30)
[2025-03-19] MEDS: TAMSULOSIN 0.4 MG SR CAP PO SCH (21:01)
--- NOTE | 2025-03-19 22:08 | RAD REPORT ---
EXAMINATION: US Extrem Venous W Compress Moise CLINICAL INDICATION: [facility] MA[facility] r/o DVT Please scan both legs Y TECHNIQUE: Complete bilateral duplex sonography of the BILATERAL lower extremity veins was performed. The examination included compression for vein patency, color Doppler imaging and flow augmentation in response to distal compression of the distal external iliac, common femoral, femoral, popliteal, t ibial, and great and small saphenous veins. COMPARISON: No prior exam. FINDINGS: Duplex sonography testing of the veins of the BILATERAL lower extremity was performed. Color flow bailey ging shows all veins to be compressible with [id number] color filling. Pulsatile and phasic flow is present within all lower extremity deep and superficial veins examined. IMPRESSION: There is no deep vein or superficial vein thrombosis.
[2025-03-19 22:30] LABS: Sqamous Epithelial None Seen /HPF (None Seen); Urine Crystals Unidentified Few /HPF (None Seen); Urine Culture Reflex Order NOT NEEDED; Urine Microscopic Reflex YN ORDER UMIC; Urine Yeast (Budding) Trace /HPF (None Seen)
[2025-03-20 07:49] LABS: Absolute Lymphocytes (CBC) 1.6 K/uL (0.7-4.9); Hematocrit 29.5 % (36.0-45.0); Hemoglobin 9.9 g/dL (12.0-15.0); MCH 30.9 pg (27.0-35.0); MCHC 33.5 g/dL (32.0-36.0); MCV 92.2 fL (80-100); MPV 9.7 fL (7.6-11.3); Nucleated RBC Absolute Count 0.0 (0-0); Nucleated Red Blood Cells % 0.0 % (0-0); RBC Red Blood Cell Count 3.20 M/uL (3.86-4.86); White Blood Count 13.60 thou/uL (4.3-10.9)
[2025-03-20 08:19] LABS: ALT/SGPT 15.0 U/L (13-56); AST/SGOT 22.0 U/L (15-37); Albumin 2.1 g/dL (3.4-5.0); Albumin/Globulin Ratio 0.6 (1.1-1.8); Alkaline Phosphatase 74.0 U/L (45-117); Anion Gap 9.0 mEq/L (5.0-15.0); BUN Blood Urea Nitrogen 18.0 mg/dL (7-18); Globulin 3.6 g/dL (2.3-3.5); Glucose Level 100.0 mg/dL (74-106); Magnesium 1.6 mg/dL (1.6-2.4); Potassium 4.0 mEq/L (3.5-5.1)
[2025-03-20] MEDS ORDERED: ALBUTEROL 2.5 MG/3 ML NEB SOL NEB PRN (08:51)
--- NOTE | 2025-03-20 11:42 | P.CNS ---
Date of Consult: 03/20/25 Chief Complaint: Infection of unknown etiology, Lower abdomen pain, weakness, MERON History of Present Illness: Patient with PMH of Lung cancer, CAD s/p multiple PCIs, also severe LAD disease, that is not amenable for intervention, presented with weakness, denies chest pain, no palpitations, no syncope. Allergies codeine Allergy (Mild, Verified 08/06/13 16:03) hyperactivity morphine Allergy (Verified 08/06/13 16:03) swelling to extremities NSAIDS (Non-Steroidal Anti-Inflamma Allergy (Verified 03/16/25 01:47) Rash prednisone Allergy (Verified 03/16/25 02:17) Rash Home medications list reviewed: Yes Home Medications: Tramadol HCl [Ultram] 1 tab PO BID PRN 11/08/18 Ascorbic Acid [Vitamin C] 1,000 mg PO DAILY 03/16/25 Atorvastatin Calcium 40 mg PO BREAKFAST 03/16/25 Clopidogrel Bisulfate [Plavix] 75 mg PO BREAKFAST 03/16/25 Ferrous Gluconate 324 mg PO BREAKFAST 03/16/25 Fiber [Fiber Diet] 2 cap PO DAILY 03/16/25 Levothyroxine Sodium 50 mcg PO BREAKFAST 03/16/25 Magnesium Oxide [Magnesium] 250 mg PO DAILY 03/16/25 Meclizine HCl 1 tab PO BEDTIME 03/16/25 Metoprolol Tartrate 1 tab PO BID 03/16/25 Multivitamin 1 each PO DAILY 03/16/25 Omeprazole Magnesium [Prilosec Otc] 20 mg PO DAILY 03/16/25 Topiramate 25 mg PO BID 03/16/25 - Past Medical/Surgical History Diabetic: No -: HTN -: Hypothyroidism -: Osteoporosis -: Lung Cancer -: Diverticulitis -: Appendectomy -: Left Lower Lobectomy -: Hysterectomy -: pessary insertion -: cholecystectomy -: perforated colon sx -: Left chest wall chemo Port - Family History Father Medical History: Cancer Notes: lung cancer Mother Medical History: Lung disease, Diabetes Notes: asthma Sister Medical History: Cancer - Social History Smoking Status: Former smoker Alcohol use: No CD- Drugs: No Caffeine use: Yes Place of Residence: Home Review of Systems 10-point ROS is otherwise unremarkable Physical Examination Temp Pulse Resp BP Pulse Ox 97.6 F 68 17 132/64 94 03/20/25 08:00 03/20/25 08:00 03/20/25 08:00 03/20/25 08:00 03/20/25 08:00 General: Alert, In no apparent distress HEENT: Atraumatic, PERRLA, Mucous membr. moist/pink, EOMI, Sclerae nonicteric Neck: Supple, 2+ carotid pulse no bruit, No LAD, Without JVD or thyroid abnormality Respiratory: Clear to auscultation bilaterally, Normal air movement Cardiovascular: Regular rate/rhythm, Normal S1 S2 Gastrointestinal: Normal bowel sounds, No tenderness Musculoskeletal: No tenderness Integumentary: No rashes Neurological: Normal gait, Normal speech, Normal tone, Normal affect Lymphatics: No axilla or inguinal lymphadenopathy - Problems (1) NSTEMI (non-ST elevated myocardial infarction) Current Visit: Yes Status: Acute Plan: patient with history of multiple stents, LAD disease, not amenable to PCI, with elevated troponin, denies chest pain, no EKG changes, no arrhythmias continue to trend Troponin for one more set. continue ASA 81 mg daily continue Plavix 75 mg daily continue lipitor 40 mg daily continue Heparin drip for another 24 hrs then D/C (2) HTN (hypertension) Current Visit: Yes Status: Acute Plan: continue Lopressor 50 mg po BID Continue to monitor.
[2025-03-20] MEDS: MAGNESIUM SULFATE 1 gm IVPB 1 GM/100 ML BAG IV ONE (11:44)
--- NOTE | 2025-03-20 12:45 | P.PN ---
Subjective Date of Service: 03/20/25 Chief Complaint: Infection of unknown etiology, Lower abdomen pain, weakness, MERON Patient was examined while resting in bed, no family at bedside. Patient reports feeling better today and updated on downtrending troponin. Discussed the need for cardiology follow-up today and that pulmonology cleared from a pulmonary standpoint. Discussed continuing to trend troponin and repeat CBC/BMP this afternoon to evaluate for continuance of downtrending. Patient reports intermittent right abdominal/back pain. Discussed x-ray for evaluation. Review of Systems 10-point ROS is otherwise unremarkable Gastrointestinal: Abdominal Pain Musculoskeletal: Back Pain Physical Examination - Vital Signs Temperature: 97.6 F Blood Pressure: 132/64 Pulse: 68 Respirations: 17 Pulse Ox (%): 94 - Physical Exam General: Alert, In no apparent distress HEENT: Atraumatic, PERRLA, EOMI Neck: Supple Respiratory: Clear to auscultation bilaterally, Normal air movement, Diminished (in bilateral base) Cardiovascular: Regular rate/rhythm, Normal S1 S2 Capillary refill: <2 Seconds Gastrointestinal: Hypoactive, Tenderness Musculoskeletal: No tenderness Integumentary: No rashes Neurological: Normal speech, Normal tone, Normal affect Lymphatics: No axilla or inguinal lymphadenopathy Urinary: Holm catheter (Clear yellow urine) Assessment And Plan - Plan Patient is a pleasant 84-year-old female with past medical history of GERD, essential hypertension, hypothyroidism, osteoporosis, CKD, lung cancer, currently receiving infusion every 3 weeks chemo of Keytruda which started since from last year. Patient brought to the ER today by her daughter due to generalized body weakness, lower abdominal pain, and bilateral lower back pain, with associated chills but no reported fever. Cystitis/UTI, resolved Acute on chronic kidney disease c/f Urinary Retention - CT abd/pelvis with: Non-obstructing bilateral renal calculi not exceeding 3 mm. Vascular calcifications. No hydronephrosis. - Zosyn completed on 03/20 - IV LR at 50 mL/ hr due to low urine output, discontinue when able - Per patient and family baseline creatinine around 1.5 - Current creatinine 1.6, continue to monitor, and consider Nephro consult if worsening - Repeat urinalysis ordered as previous did not reflex. Repeat culture negative at final result - 03/18: Urology consulted, recommendations for Holm placement and pessary device was removed. This may be replaced after urinary retention has improved and Holm cath has been removed. Recommendations to start alfuzosin or silodosin however we do not have this medication per pharmacy. - Started on tamsulosin - PVR over 300mL and no urge to void. Holm placed on 03/18. Attempt to DC on 03/21 Leukocytosis, improving - Possibly due to UTI - Chest x-ray ordered and reviewed; no acute findings or typical pneumonia present - Blood cultures negative x 24, continue to monitor - WBC trended up and maintaining at 13 - A-febrile - Covid/Flu testing ordered; negative Dizziness, resolved - Received 1L IV fluids with improved symptoms - Echo ordered with EF 55-60% Hx of GERD - Takes omeprazole outpatient - Protonix PO while inpatient Hx of hypothyroidism - Not an active issue at this time. - Continue home levothyroxine daily History of hypertension History of hyperlipidemia History of TIA - Continue home medications metoprolol tartrate 50 mg twice daily, atorvastatin and Plavix - Monitor blood pressure per unit protocol - IV metoprolol 5 mg every 6 hours as needed added for SBP greater than 60 History of lung cancer - CT chest; Subsolid 6 mm nodule in the peripheral left upper lobe on axial image 18 is stable. Improvement confluent subpleural left lower lobe opacity now with some streaky atelectasis or scarring in this region. New confluence of solid opacity in the right upper lobe measuring 1.6 cm on axial image 20. Improving medial right upper lobe and stable sub-pleural dependent right lower lobe opacities, with filling of the small cavity spaces within the latter opacity. No other nodules. - Currently receiving infusions every 3 weeks chemo Keytruda - Satting well on room air - Continue to follow with oncology outpatient - Pulmonology consulted. No new recs and signed off case Elevated troponin - 03/19: Patient was found to have elevated troponin of 5186.5. Dr. Rider was notified and recommended starting heparin drip and agreed to consult with patient. Patient remained without chest pain and was in NSR. Discussed with bedside RN prior to leaving day shift that the patient is to have a troponin redrawn 6 hours after last draw which was going to be at 8:00 PM this evening and expressed the importance of follow-up. Also discussed with bedside RN the need for serial EKG's. Nighttime hospitalist and patient's daughter was made aware of trending troponin and serial EKGs and to follow-up on/report patient having newly established chest pain. - 03/20: Cardiology consulted. Troponin downtrending now at 3301.9. patient with history of multiple stents, LAD disease, not amenable to PCI, with elevated troponin, denies chest pain, no EKG changes, no arrhythmias. Recs for: continue to trend Troponin for one more set. continue ASA 81 mg daily. continue Plavix 75 mg daily. Continue lipitor 40 mg daily. Continue Heparin drip for another 24 hrs then D/C. DVT Ppx: Heparin GI Ppx: Protonix Code Status: Full Code Discharge Plan: Home Plan to discharge in: 24 Hours - Code Status/Comfort Care Code Status Assessed: Yes (Full code) Critical Care: No Time Spent Managing PTS Care (In Minutes): 25
[2025-03-20 14:00] LABS: Absolute Lymphocytes (CBC) 1.7 K/uL (0.7-4.9); Hematocrit 29.7 % (36.0-45.0); Hemoglobin 9.7 g/dL (12.0-15.0); MCH 30.3 pg (27.0-35.0); MCHC 32.5 g/dL (32.0-36.0); MCV 93.0 fL (80-100); MPV 9.6 fL (7.6-11.3); Nucleated RBC Absolute Count 0.0 (0-0); Nucleated Red Blood Cells % 0.0 % (0-0); RBC Red Blood Cell Count 3.19 M/uL (3.86-4.86); White Blood Count 13.00 thou/uL (4.3-10.9)
[2025-03-20 14:14] LABS: Anion Gap 10.0 mEq/L (5.0-15.0); BUN Blood Urea Nitrogen 19.0 mg/dL (7-18); Glucose Level 107.0 mg/dL (74-106); Potassium 4.0 mEq/L (3.5-5.1)
[2025-03-20] MEDS: ENSURE ENLIVE 237 ML CAN PO SCH (21:00)
--- NOTE | 2025-03-21 07:43 | RAD REPORT ---
Exam:Abdomen 1 View (KUB) Clinical history: Abdominal pain FINDINGS: The bowel gas pattern is unremarkable No significant calcification is displayed.
[2025-03-21] MEDS: ASPIRIN EC 81 MG TAB PO SCH (08:42)
[2025-03-21] MEDS: CLOPIDOGREL 75 MG TABLET PO SCH (08:43)
--- NOTE | 2025-03-21 11:39 | P.PN ---
Subjective Date of Service: 03/21/25 Chief Complaint: Infection of unknown etiology, Lower abdomen pain, weakness, MERON Subjective: No new changes, No C/O voiced, Tolerating diet, Ambulating, Improving Review of Systems 10-point ROS is otherwise unremarkable Physical Examination - Vital Signs Temperature: 97.8 F Blood Pressure: 124/58 Pulse: 84 Respirations: 14 Pulse Ox (%): 94 - Physical Exam General: Alert, In no apparent distress HEENT: Atraumatic, PERRLA, EOMI Neck: Supple, JVD not distended Respiratory: Clear to auscultation bilaterally, Normal air movement Cardiovascular: Regular rate/rhythm, Normal S1 S2 Gastrointestinal: Normal bowel sounds, No tenderness Musculoskeletal: No tenderness Integumentary: No rashes Neurological: Normal speech, Normal tone, Normal affect Lymphatics: No axilla or inguinal lymphadenopathy - Studies Microbiology Data (last 24 hrs): 03/16/25 00:01 Blood - Blood Aerobic Blood Culture - Final No growth in 5 days. 03/16/25 00:01 Blood - Blood Anaerobic Blood Culture - Final No growth in 5 days. 03/16/25 00:01 Blood - Blood Aerobic Blood Culture - Final No growth in 5 days. 03/16/25 00:01 Blood - Blood Anaerobic Blood Culture - Final No growth in 5 days. Medications List Reviewed: Yes Assessment And Plan - Current Problems (Diagnosis) (1) NSTEMI (non-ST elevated myocardial infarction) Current Visit: Yes Status: Acute Plan: patient with history of multiple stents, LAD disease, not amenable to PCI, with elevated troponin, denies chest pain, no EKG changes, no arrhythmias Troponin down trended continue ASA 81 mg daily continue Plavix 75 mg daily continue lipitor 40 mg daily D/C Heparin (2) HTN (hypertension) Current Visit: Yes Status: Acute Plan: continue Lopressor 50 mg po BID Continue to monitor.
--- NOTE | 2025-03-21 12:57 | P.DS ---
Admission Date: 03/16/25 Discharge Date: 03/21/25 Reason for Admission: Infection of unknown etiology, Lower abdomen pain, weakness, MERON Brief History of Present Illness: Patient is a pleasant 84-year-old female with past medical history of GERD, essential hypertension, hypothyroidism, osteoporosis, CKD, lung cancer, currently receiving infusion every 3 weeks chemo of Keytruda which started since from last year. Patient brought to the ER today by her daughter due to generalized body weakness, lower abdominal pain, and bilateral lower back pain, with associated chills but no reported fever. According to patient daughter, she states 2 days ago patient started complaining of dizziness, and today patient started complaining of bilateral flank pain, and lower abdominal pain. Patient also states that she had chills yesterday with no fever. Patient does not complain of urinary urgency or frequency at this time. Patient lungs clear bilaterally with no adventitious breath sounds, denies of chest pain or shortness of breath. Patient had CT chest, abdomen, and pelvis without contrast in ER, with impression: Developing nodular right upper lobe 1.6 cm subsolid opacity, could reflect an infectious or inflammatory process. Stable dependent right lower lobe subpleural consolidative opacity may also present persistent or recurrent airspace disease, with some filling of the cavitary spaces seen previously. Other opacities in both lungs show interval improvement. Nonobst ructing bilateral renal calculi not exceeding 3 mm. Patient also had chest x- ray, with impression: No acute intrathoracic abnormalities. Stable findings. Patient urinalysis positive for leukocyte esterase. Patient WBC 13.30, with a left shift 77.3. BUN 36, creatinine 1.80, GFR 27, BNP 3766. Hospital Course: Patient was admitted to the hospital for MERON, weakness, lower abdominal pain. She also had an elevated troponin which peaked at 5186 and then trended down. Creatinine on admission was 1.8, this has improved to 1.5 today. In regards to her elevated troponin she was seen by cardiology. Patient has history of multiple stents with LAD disease which is not amenable to PCI. Patient denies chest pain there are no EKG changes or arrhythmias and troponin is downtrending. She was treated with a heparin drip while inpatient. At discharge she will continue her aspirin, Plavix, Lipitor, Lopressor. She should also follow-up with cardiology 1 to 2 weeks. During her hospitalization she did develop some urinary retention, her pessary was removed and Holm catheter was inserted. Today her Holm catheter was removed and she passed a voiding trial. She will be started on alfuzosin as recommended by urology. Recommend outpatient follow-up with urology as well, okay to reinsert pessary as well. Please follow-up with primary care doctor, urology and cardiology at discharge in 1 to 2 weeks. Continue other home indications as previously prescribed. <Alessio Lyons - Last Filed: 03/21/25 12:57> Admission Date: 03/16/25 Discharge Date: 03/23/25 Hospital Course: Diagnosis Cystitis/UTI, resolved Acute on chronic kidney disease c/f Urinary Retention Leukocytosis, improving Hx of GERD Hx of hypothyroidism History of hypertension History of hyperlipidemia History of TIA History of lung cancer NSTEMI <kate woods - Last Filed: 03/23/25 18:27> Disposition: ROUTINE DISCHARGE Discharge Condition: GOOD Vital Signs/Physical Exam: Temp Pulse Resp BP Pulse Ox 97.8 F 84 14 124/58 L 94 03/21/25 11:39 03/21/25 11:39 03/21/25 11:39 03/21/25 11:39 03/21/25 11:39 General: Alert, In no apparent distress, Oriented x3 HEENT: Atraumatic, PERRLA Neck: Supple, JVD not distended Respiratory: Clear to auscultation bilaterally, Normal air movement Cardiovascular: Regular rate/rhythm, Normal S1 S2 Gastrointestinal: Normal bowel sounds, No tenderness Musculoskeletal: No tenderness Integumentary: No rashes Neurological: Normal speech, Normal affect Laboratory Data at Discharge: WBC 13.00 thou/uL (4.3-10.9) H 03/20/25 13:42 Hgb 9.7 g/dL (12.0-15.0) L 03/20/25 13:42 Hct 29.7 % (36.0-45.0) L 03/20/25 13:42 Plt Count 241 thou/uL (152-406) 03/20/25 13:42 PT 12.8 SECONDS (10-13.0) 03/15/25 20:53 INR 1.14 03/15/25 20:53 APTT 67.4 SECONDS (27.2-37.4) H 03/21/25 05:15 Sodium 140 mEq/L (136-145) 03/20/25 13:42 Potassium 4.0 mEq/L (3.5-5.1) 03/20/25 13:42 BUN 19 mg/dL (7-18) H 03/20/25 13:42 Creatinine 1.51 mg/dL (0.55-1.02) H 03/20/25 13:42 Glucose 107 mg/dL (74-106) H 03/20/25 13:42 Phosphorus 3.4 mg/dL (2.5-4.9) 03/20/25 07:10 Magnesium 1.6 mg/dL (1.6-2.4) 03/20/25 07:10 Total Bilirubin 0.3 mg/dL (0.2-1.0) 03/20/25 07:10 AST 22 U/L (15-37) 03/20/25 07:10 ALT 15 U/L (13-56) 03/20/25 07:10 Alkaline Phosphatase 74 U/L (45-117) 03/20/25 07:10 Lipase 25 U/L (13-75) 03/15/25 20:53 <Alessio Lyons - Last Filed: 03/21/25 12:57> Vital Signs/Physical Exam: Temp Pulse Resp BP Pulse Ox 97.7 F 73 15 141/67 H 95 03/21/25 12:00 03/21/25 12:00 03/21/25 12:00 03/21/25 12:00 03/21/25 12:00 Laboratory Data at Discharge: WBC 13.00 thou/uL (4.3-10.9) H 03/20/25 13:42 Hgb 9.7 g/dL (12.0-15.0) L 03/20/25 13:42 Hct 29.7 % (36.0-45.0) L 03/20/25 13:42 Plt Count 241 thou/uL (152-406) 03/20/25 13:42 PT 12.8 SECONDS (10-13.0) 03/15/25 20:53 INR 1.14 03/15/25 20:53 APTT 67.4 SECONDS (27.2-37.4) H 03/21/25 05:15 Sodium 140 mEq/L (136-145) 03/20/25 13:42 Potassium 4.0 mEq/L (3.5-5.1) 03/20/25 13:42 BUN 19 mg/dL (7-18) H 03/20/25 13:42 Creatinine 1.51 mg/dL (0.55-1.02) H 03/20/25 13:42 Glucose 107 mg/dL (74-106) H 03/20/25 13:42 Phosphorus 3.4 mg/dL (2.5-4.9) 03/20/25 07:10 Magnesium 1.6 mg/dL (1.6-2.4) 03/20/25 07:10 Total Bilirubin 0.3 mg/dL (0.2-1.0) 03/20/25 07:10 AST 22 U/L (15-37) 03/20/25 07:10 ALT 15 U/L (13-56) 03/20/25 07:10 Alkaline Phosphatase 74 U/L (45-117) 03/20/25 07:10 Lipase 25 U/L (13-75) 03/15/25 20:53 <kate woods - Last Filed: 03/23/25 18:27> Diet: Regular Activity: Fall precautions Time spent managing pt's care (in minutes): 45 <Alessio Lyons - Last Filed: 03/21/25 12:57> <akte woods - Last Filed: 03/23/25 18:27> Home Medications: Tramadol HCl [Ultram] 1 tab PO BID PRN 11/08/18 Ascorbic Acid [Vitamin C] 1,000 mg PO DAILY 03/16/25 Atorvastatin Calcium 40 mg PO BREAKFAST 03/16/25 Clopidogrel Bisulfate [Plavix] 75 mg PO BREAKFAST 03/16/25 Ferrous Gluconate 324 mg PO BREAKFAST 03/16/25 Fiber [Fiber Diet] 2 cap PO DAILY 03/16/25 Levothyroxine Sodium 50 mcg PO BREAKFAST 03/16/25 Magnesium Oxide [Magnesium] 250 mg PO DAILY 03/16/25 Meclizine HCl 1 tab PO BEDTIME 03/16/25 Metoprolol Tartrate 1 tab PO BID 03/16/25 Multivitamin 1 each PO DAILY 03/16/25 Omeprazole Magnesium [Prilosec Otc] 20 mg PO DAILY 03/16/25 Topiramate 25 mg PO BID 03/16/25 Alfuzosin HCl [Alfuzosin HCl ER] 10 mg PO BEDTIME #30 tab 03/21/25 New Medications: Alfuzosin HCl [Alfuzosin HCl ER] 10 mg PO BEDTIME #30 tab Physician Discharge Instructions: Patient was admitted to the hospital for MERON, weakness, lower abdominal pain. She also had an elevated troponin which peaked at 5186 and then trended down. Creatinine on admission was 1.8, this has improved to 1.5 today. In regards to her elevated troponin she was seen by cardiology. Patient has history of multiple stents with LAD disease which is not amenable to PCI. Patient denies chest pain there are no EKG changes or arrhythmias and troponin is downtrending. She was treated with a heparin drip while inpatient. At discharge she will continue her aspirin, Plavix, Lipitor, Lopressor. She should also follow-up with cardiology 1 to 2 weeks. During her hospitalization she did develop some urinary retention, her pessary was removed and Holm catheter was inserted. Today her Holm catheter was removed and she passed a voiding trial. She will be started on alfuzosin as recommended by urology. Recommend outpatient follow-up with urology as well, okay to reinsert pessary as well. Please follow-up with primary care doctor, urology and cardiology at discharge in 1 to 2 weeks. Continue other home indications as previously prescribed. Followup: Irwin Corbett MD [Primary Care Provider] - 1-2 Weeks Kee Rider MD [ACTIVE - CAN ADMIT] - 1-2 Weeks John Valle [ACTIVE - CAN ADMIT] - 1-2 Weeks
[2025-03-21 13:15] VITALS: BP 141/67; TEMP 97.7
== END 2025-03-21 13:37 | disposition home or self-care (01) | DRG 682 ==
LOC: ER 20:06 → ERHOLD 03-16 00:10 → 2ND 03-16 00:29
PROVIDERS: ADMIT Hospitalist; ATTEND Internal Medicine
PROC: 0T9B70Z Drainage of Bladder with Drainage Device, Via Natural or Artificial Opening (ICD-10-PCS; principal; 2025-03-18)
DX: N17.9 Acute kidney failure, unspecified (principal); I21.4 Non-ST elevation (NSTEMI) myocardial infarction; C34.90 Malignant neoplasm of unspecified part of unspecified bronchus or lung; N30.90 Cystitis, unspecified without hematuria; E03.9 Hypothyroidism, unspecified; J98.4 Other disorders of lung; N81.10 Cystocele, unspecified; K21.9 Gastro-esophageal reflux disease without esophagitis; M81.0 Age-related osteoporosis without current pathological fracture; I12.9 Hypertensive chronic kidney disease with stage 1 through stage 4 chronic kidney disease, or unspecified chronic kidney disease; N18.9 Chronic kidney disease, unspecified; R33.9 Retention of urine, unspecified; Z88.5 Allergy status to narcotic agent; Z95.5 Presence of coronary angioplasty implant and graft; Z11.52 Encounter for screening for COVID-19; Z79.02 Long term (current) use of antithrombotics/antiplatelets; Z90.49 Acquired absence of other specified parts of digestive tract; Z86.73 Personal history of transient ischemic attack (TIA), and cerebral infarction without residual deficits; Z79.890 Hormone replacement therapy; Z90.710 Acquired absence of both cervix and uterus; Z87.891 Personal history of nicotine dependence; Z79.899 Other long term (current) drug therapy
CPT/HCPCS: 36415; 71045; 71250; 74018; 74176; 80048; 80053; 80076; 81001; 82803; 83605; 83690; 83735; 83880; 84100; 84145; 84484; 85025; 85379; 85610; 85730; 87040; 87086; 87088; 87428; 93005; 93306; 93970; 94640; 96361; 96365; 96375; 99285; J0360; J0696; J1644; J2405; J2543; J3010; J3475; J7040; J7120; J7613